=== PATIENT | female | born 1945 ===

== ENCOUNTER → 2019-11-23 11:57 | Outpatient (BNVA) | payer MEDICARE, SELFPAY | PROVIDERS: PCP Internal Medicine; Referring Provider Internal Medicine; Visit Provider Internal Medicine Endocrinology, Diabetes & Metabolism | DX: E11.65 Type 2 diabetes mellitus with hyperglycemia (principal); Z79.84 Long term (current) use of oral hypoglycemic drugs; E03.9 Hypothyroidism, unspecified; E78.5 Hyperlipidemia, unspecified; E66.9 Obesity, unspecified; M85.80 Other specified disorders of bone density and structure, unspecified site; I10 Essential (primary) hypertension; E55.9 Vitamin D deficiency, unspecified; Z79.899 Other long term (current) drug therapy | CPT/HCPCS: 82947; 99214 ==

== ENCOUNTER → 2019-12-12 12:39 | Outpatient (BNVA) | payer MEDICARE, SELFPAY | PROVIDERS: PCP Internal Medicine; Visit Provider Dietitian, Registered | DX: Z76.89 Persons encountering health services in other specified circumstances (principal) ==

== ENCOUNTER 2020-02-29 08:10 | Outpatient (REF) | payer MEDICARE, SELFPAY ==
--- NOTE | 2020-02-29 09:29 | XR_ITS ---
EXAMINATION: XR ANKLE, RIGHT CLINICAL INFORMATION: Pain COMPARISON: None TECHNIQUE: AP, lateral, and mortise views of the right ankle. FINDINGS: There is an overlying cast. There is an oblique fracture of the distal shaft of the fibula. There is minimal 2 mm lateral subluxation of the lateral malleolus with respect to the more proximal shaft. No other fracture is seen. The ankle mortise is normal. XR/XR ankle RT min 3V IMPRESSION: Minimally displaced fracture of the distal shaft of the fibula.
== END 2020-02-29 08:11 | disposition home or self-care (01) ==
LOC: HO.XRAY 08:10
PROVIDERS: PCP Internal Medicine; Visit Provider Physician Assistant
DX: M25.571 Pain in right ankle and joints of right foot (principal); S82.832A Other fracture of upper and lower end of left fibula, initial encounter for closed fracture; W08.XXXA Fall from other furniture, initial encounter; Y93.9 Activity, unspecified; Y92.009 Unspecified place in unspecified non-institutional (private) residence as the place of occurrence of the external cause; Y99.8 Other external cause status; E11.65 Type 2 diabetes mellitus with hyperglycemia; I10 Essential (primary) hypertension; E03.9 Hypothyroidism, unspecified; E55.9 Vitamin D deficiency, unspecified; E66.9 Obesity, unspecified; M85.80 Other specified disorders of bone density and structure, unspecified site; Z88.8 Allergy status to other drugs, medicaments and biological substances; Z87.891 Personal history of nicotine dependence
CPT/HCPCS: 27786; 29405; 73610; 99202

== ENCOUNTER → 2020-03-11 11:22 | Outpatient (BNVA) | payer OTHER, SELFPAY | PROVIDERS: PCP Internal Medicine; Visit Provider Internal Medicine Pulmonary Disease | DX: Z13.89 Encounter for screening for other disorder (principal) | CPT/HCPCS: Q3014 ==

== ENCOUNTER 2020-03-31 08:24 | Outpatient (REF) | payer OTHER, SELFPAY ==
--- NOTE | ~2020-03-31 | XR_ITS ---
EXAMINATION: XR ANKLE, RIGHT CLINICAL INFORMATION: Fracture COMPARISON: None TECHNIQUE: AP, lateral, and mortise views of the right ankle. FINDINGS: There is a fracture of the distal fibular shaft. There is increased periosteal reaction at the fracture and the fracture appears more indistinct suggestive of evidence of healing. No other fracture is seen. The ankle mortise is normal. Soft tissues are normal. XR/XR ankle RT min 3V IMPRESSION: Healing right distal fibular shaft fracture.
== END 2020-03-31 08:25 | disposition home or self-care (01) ==
LOC: HO.XRAY 08:24
PROVIDERS: PCP Internal Medicine; Visit Provider Physician Assistant
DX: S82.891A Other fracture of right lower leg, initial encounter for closed fracture (principal)
CPT/HCPCS: 73610; 99212

== ENCOUNTER 2020-04-03 07:49 | Outpatient (REF) | payer MEDICARE, SELFPAY ==
--- NOTE | ~2020-04-03 | XR_ITS ---
EXAMINATION: XR AP STANDING VIEW OF BOTH KNEES XR LATERAL AND SUNRISE VIEWS OF THE LEFT KNEE CLINICAL INFORMATION: Left knee pain. COMPARISON: 06/29/2018 TECHNIQUE: AP standing view of both knees. Lateral and sunrise views of the left knee. FINDINGS: AP standing views of both knees demonstrate narrowing of the medial joint space compartments bilaterally. No acute fracture or dislocation of the right knee is appreciated on this AP film. Views of the left knee do not demonstrate any evidence of acute fracture or dislocation. There is mild spurring of the patellofemoral joint, most prominent involving the lateral facet. Small spur is seen site of insertion of the quadriceps tendon on the superior aspect of the patella. No knee effusion is appreciated. XR/XR knee standing BI IMPRESSION: Degenerative narrowing of the medial joint space compartments bilaterally. Mild degenerative change of the patellofemoral joint. No acute fracture or effusion.
--- NOTE | ~2020-04-03 | XR_ITS ---
EXAMINATION: XR AP STANDING VIEW OF BOTH KNEES XR LATERAL AND SUNRISE VIEWS OF THE LEFT KNEE CLINICAL INFORMATION: Left knee pain. COMPARISON: 06/29/2018 TECHNIQUE: AP standing view of both knees. Lateral and sunrise views of the left knee. FINDINGS: AP standing views of both knees demonstrate narrowing of the medial joint space compartments bilaterally. No acute fracture or dislocation of the right knee is appreciated on this AP film. Views of the left knee do not demonstrate any evidence of acute fracture or dislocation. There is mild spurring of the patellofemoral joint, most prominent involving the lateral facet. Small spur is seen site of insertion of the quadriceps tendon on the superior aspect of the patella. No knee effusion is appreciated. XR/XR knee LT 2V IMPRESSION: Degenerative narrowing of the medial joint space compartments bilaterally. Mild degenerative change of the patellofemoral joint. No acute fracture or effusion.
== END 2020-04-03 07:50 | disposition home or self-care (01) ==
LOC: HO.HOSX 07:49
PROVIDERS: Visit Provider Orthopaedic Surgery
DX: M17.12 Unilateral primary osteoarthritis, left knee (principal); E11.65 Type 2 diabetes mellitus with hyperglycemia
CPT/HCPCS: 20610; 73560; 73565; 99212; J1100

== ENCOUNTER 2020-04-09 11:00 | Outpatient (RCR) | payer MEDICARE, SELFPAY ==
--- NOTE | 2020-04-07 14:59 | MHC.PT.EP ---
[facility] [place] Office [place] Office [place] Office [address] Ezra Beaz [address] [phone] F: [phone] F: [phone] F: [phone] F: [phone] Physical Therapy Plan of Care Date of Evaluation: 04/07/20 Date of Surgery: n/a Diagnosis: Right fibular shaft fracture 02/22/20 Assessment: This is a 74 y/o female presenting to [facility] w/ a right fibular shaft fracture which occurred on 02/22/20 s/p fall in [place] while she was visiting her mother. She is in a walking boot and WBAT in the boot. Of note, Pt almost cancels today's appointment due to severe pain. This PT educates Pt in regards to non pharmacologic pain management techniques, weight bearing, and mobility. Pt also reports she has restless leg syndrome...this appears to be more bothersome for the Pt along with some anxiety. Pt demonstrates impaired weight bearing, impaired proprioception, gait deviations, pain, tenderness to palpation, impaired strength, soft tissue swelling, impaired muscle length, postural asymmetries, and impaired tolerance to activity. Due to these impairments, Pt w/ difficulty ambulating, performing housework tasks, performing functional squats, ascending/descending stairs, standing/sitting/walking for greater than a very short amount of time, donning/doffing clothing, and performing any lifting. Pt will benefit from skilled PT services 2x/week for 6 weeks in order to reduce impairments and improve limitations. Frequency and Duration: The patient will be seen 2x/week for 6 weeks Short Term Goals: -In 2 weeks, Pt to restore PROM of the right ankle to WNL in all directions. -In 3 weeks, Pt to report <7/10 pain w/ weight bearing w/ walking boot on. -In 3 weeks, Pt to demonstrate reduced swelling by at least 0.5cm R ankle. [facility] Goals: -In 5 weeks, Pt to demonstrate the ability to ambulate w/o walking boot or AD w/ Ortho permission, no assist or LOB. -In 6 weeks, Pt to demonstrate the ability to ascend/descend 12 steps w/ rails as needed, mod I level, <5/10 pain reported. Treatment Plan: Modalities to reduce pain, spasms and effusion. Manual therapy to restore motion and function. Therapeutic exercise to improve strength and flexibility. Neuromuscular re-education for posture and balance. Therapeutic activities to return to functional activities of daily living. Electronically signed by: Perlita Soliman PT, DPT Please sign and return to therapist. Thank you for your referral.
--- NOTE | 2020-04-22 16:37 | MHC.PT.DC ---
[facility] [place] Office [place] Office [place] Office [address] Ezra Baez 140 [facility] [phone] F: [phone] F: [phone] F: [phone] F: [phone] Physical Therapy Discharge Report Diagnosis: Right fibular shaft fracture 02/22/20 Date of Surgery: n/a Date of Evaluation: 04/07/20 Date of Discharge: 04/22/20 Treatments to Date: 2 Cancellations to Date: 3 No Shows to Date: 0 Discharge Status: Patient Elected to Stop Recommend MD Follow-up Visit Non-compliance Discharge Summary: Pt has cancelled each visit since the 2nd treatment session due to pain, despite education regarding physical therapy intervention to address impairments including pain. She reported to our office that she falls often due to restless legs. I advised her to consult her PCP. Please send a new script for PT when the Pt is ready to continue. Electronically signed by: Perlita Soliman PT, DPT Please sign and return to therapist. Thank you for your referral.
== END 2020-04-22 16:39 | disposition other institution (70) ==
LOC: HO.PT 11:00
PROVIDERS: Visit Provider Physician Assistant
DX: S82.891D Other fracture of right lower leg, subsequent encounter for closed fracture with routine healing (principal)
CPT/HCPCS: 97110; 97116; 97140; 97162

== ENCOUNTER 2020-04-18 03:16 | Emergency (ER) | payer MEDICARE, SELFPAY ==
--- NOTE | ~2020-04-18 | XR_ITS ---
EXAMINATION: XR HIP, RIGHT CLINICAL INFORMATION: Fall. COMPARISON: None TECHNIQUE: Two views of the right hip. AP pelvis one view FINDINGS: AP pelvis one view and 2 views right hip reveal no visible fracture. There is normal symmetry of both hip joints and SI joints. No pelvic fractures seen. 2 views of right hip reveals no visible fracture or dislocation. The soft tissues are normal. XR/XR hip RT w PEL1V IMPRESSION: Unremarkable right hip exam. Unremarkable AP pelvis exam.
[2020-04-18 03:39] VITALS: BP 151/75; PULSE 71; TEMP 37.2; O2SAT 97; BMI 29.5
[2020-04-18 04:00] VITALS: RESP 20
--- NOTE | 2020-04-18 05:27 | ED.EXTPRO ---
HPI - Extremity Problem General Chief complaint: Extremity Problem Stated complaint: RIGHT PAIN FOR 5 DAYS Time Seen by Provider: 04/18/20 05:02 Source: patient Mode of arrival: EMS History of Present Illness HPI Narrative: This is a 74-year-old who presents via EMS stating that she attempted to go to the bathroom and then became unsteady on her feet and landed on her bottom. She denies any head strike or loss of consciousness. She states she is concerned because she has continued to have multiple falls that she states is secondary to mid gluteal pain that radiates down into the right lower extremity and ?causes her to fall?. In addition, patient has some concerns regarding the medication affects for her restless leg syndrome. Otherwise, she denies any fever, chills, urinary symptoms. Related Data Home Medications Medication Instructions Recorded Confirmed albuterol sulfate mg INHALATION 11/23/19 03/17/20 atorvastatin 10 mg tablet 10 mg PO DAILY 11/23/19 03/17/20 bisoprolol 2.5 1 tab PO BEDTIME 11/23/19 03/17/20 mg-hydrochlorothiazide 6.25 mg tablet blood sugar diagnostic #10 ea 11/23/19 03/17/20 calcium citrate 500 mg PO DAILY 11/23/19 03/17/20 cetirizine 10 mg tablet 10 mg PO DAILY 11/23/19 03/17/20 fluticasone 100 mcg-salmeterol 50 INHALATION 11/23/19 03/17/20 mcg/dose blistr powdr for inhalation losartan 25 mg tablet 25 mg PO DAILY 11/23/19 03/17/20 montelukast 10 mg tablet 10 mg PO DAILY 11/23/19 03/17/20 omeprazole 20 mg capsule,delayed 20 mg PO DAILY 11/23/19 03/17/20 release ropinirole 0.25 mg tablet 0.25 mg PO BEDTIME 11/23/19 03/17/20 tramadol 50 mg tablet 50 mg PO Q8H PRN 11/23/19 03/17/20 Previous Rx's Medication Instructions Recorded cholecalciferol (vitamin D3) 50 50 mcg PO DAILY 90 Days #90 cap 11/23/19 mcg (2,000 unit) capsule empagliflozin 25 mg tablet 25 mg PO DAILY 90 Days #90 tab 11/23/19 levothyroxine 137 mcg tablet 137 mcg PO DAILY 90 Days #90 tab 11/23/19 metformin 500 mg tablet,extended 500 mg PO DAILY 90 Days #90 tab 11/23/19 release 24 hr sitagliptin 100 mg tablet 100 mg PO DAILY 90 Days #90 tab 11/23/19 Wheelchair #1 ea 02/29/20 walker #1 ea 02/29/20 Scooter #1 ea 03/11/20 gabapentin 400 mg capsule 400 mg PO BID 30 Days #60 cap 03/19/20 Allergies Allergy/AdvReac Type Severity Reaction Status Date / Time aspirin [ASPIRIN] Allergy Severe ANAPHYLAXIS Verified 04/03/20 10:07 Pork/Porcine Containing Allergy Severe ANAPHYLAXIS Verified 04/03/20 10:07 Products [PORK/PORCINE CONTAINING PRODUCTS] Review of Systems Review of Systems: Pertinent positives and negatives as stated in HPI 10 point review of systems is otherwise negative. [facility] Past Medical History Source: nursing notes reviewed Medical History Addiction, opium Arthritis Depression with anxiety Diabetes Diabetes type 2, uncontrolled Dyslipidemia Hypertension Hypothyroidism (acquired) Obesity (BMI 30-39.9) Osteopenia Vitamin D deficiency Surgical History History of radical hysterectomy Hx of arthroscopy of knee Family History Family History Father Diabetes Mother No problems noted. Social History Social History Alcohol intake: never Smoking Status: Former smoker Tobacco Type: Cigarette Advance Directives: No Physical Exam Vital Signs: Vital Signs: Last Vital Signs Temp 98.9 F 04/18/20 03:39 Pulse 82 04/18/20 06:00 Resp 18 04/18/20 06:00 BP 146/76 H 04/18/20 06:00 Pulse Ox 99 04/18/20 06:00 Body Mass Index 29.5 VITAL SIGNS: Reviewed. GENERAL: Well developed, well nourished, in no acute distress. HEAD: Normocephalic/atraumatic, EYES: PERRLA, EOMI NOSE: Nares patent bilateral OROPHARYNX: no oral lesions noted, posterior pharynx clear NECK: Supple, no adenopathy LUNGS: Normal breath sounds. No adventitious sounds or accessory muscle use. SpO2<97> CARDIOVASCULAR: Regular rate and rhythm without noted murmurs ABDOMEN: Soft, non-tender, non-distended with bowel sounds. MUSCULOSKELETAL: No tenderness, deformities, or effusions noted on gross inspection. EXTREMITIES: No cyanosis, clubbing or edema. SKIN: Inspection of the skin reveals no rashes NEUROLOGIC: Alert and oriented x 4. Course Course Course Narrative: This is a 74-year-old female with history and clinical presentation most consistent with sciatica and likely medication affects of bedtime prescription. Patient does have follow-up with her primary care provider on Tuesday. Will do baseline labs and urinalysis to assess for evidence of infection, or anemia which may be contributing factors. Signed out to Dr Salcedo: Follow up labs, UA, Hip XR and dispo accordingly. MDM - Extremity (Nontraumatic) Lab Data Result diagrams: 04/18/20 06:17 04/18/20 06:17 Labs: Lab Results 04/18/20 Range/Units 06:21 Urine Color YELLOW Urine Appearance CLEAR Urine pH 6.0 (5.0-8.0) Ur Specific [place] <= 1.005 (1.005-1.025) Urine Protein NEG (NEG-TRACE) MG/DL Urine Glucose (UA) NEG (NEG) MG/DL Urine Ketones NEG (NEG) MG/DL Urine Blood NEG (NEG) Urine Nitrite NEG (NEG) Ur Leukocyte Esterase NEG (NEG) Discharge Plan Discharge Prescriptions: No Action (DME) Scooter See Rx Instructions .Route .MEDSUPPLY Qty: 1 RF: 0 gabapentin 400 mg capsule 400 mg PO BID 30 Days Qty: 60 RF: 0 (DME) Wheelchair See Rx Instructions .Route .MEDSUPPLY Qty: 1 RF: 0 (DME) walker Misc See Rx Instructions .MEDSUPPLY Qty: 1 RF: 0 montelukast 10 mg tablet 10 mg PO DAILY RF: 0 ropinirole 0.25 mg tablet 0.25 mg PO BEDTIME RF: 0 losartan 25 mg tablet 25 mg PO DAILY RF: 0 tramadol 50 mg tablet 50 mg PO Q8H PRN (Reason: pain) RF: 0 cetirizine 10 mg tablet 10 mg PO DAILY RF: 0 omeprazole 20 mg capsule,delayed release(DR/EC) 20 mg PO DAILY RF: 0 albuterol sulfate 2.5 mg /3 mL (0.083 %) solution for nebulization inhalation RF: 0 atorvastatin 10 mg tablet 10 mg PO DAILY RF: 0 bisoprolol-hydrochlorothiazide 2.5-6.25 mg tablet 1 tab PO BEDTIME RF: 0 calcium citrate 250 mg calcium tablet 500 mg PO DAILY RF: 0 fluticasone propion-salmeterol 100-50 mcg/dose blister with device inhalation RF: 0 (DME) [employer] Ultra Blue Test Strip Strip See Rx Instructions ea Not Applicable BID Qty: 10 RF: 0 Jardiance 25 mg tablet 25 mg PO DAILY 90 Days Qty: 90 RF: 1 metformin 500 mg tablet extended release 24 hr 500 mg PO DAILY 90 Days Qty: 90 RF: 1 sitagliptin 100 mg tablet 100 mg PO DAILY 90 Days Qty: 90 RF: 1 levothyroxine 137 mcg tablet 137 mcg PO DAILY 90 Days Qty: 90 RF: 2 cholecalciferol (vitamin D3) 50 mcg (2,000 unit) capsule 50 mcg PO DAILY 90 Days Qty: 90 RF: 2
[2020-04-18 06:00] VITALS: BP 146/76; PULSE 82; RESP 18; O2SAT 99
[2020-04-18] MEDS: Acetaminophen 325 MG TABLET 975 MG PO (06:05)
[2020-04-18] MEDS: Lidocaine 4 % Patch ADH..PATCH 1 PATCH TRANSDERMA (06:05)
[2020-04-18 06:28] LABS: MANUAL DIFF FLAG NO
[2020-04-18 06:36] LABS: Glucose Urine UA NEG (NEG); Leukocyte Esterase Urine NEG (NEG); Nitrite Urine NEG (NEG); Specific Gravity - Urine <= 1.005 (1.005-1.025); Urine Blood NEG (NEG); Urine Ketones NEG (NEG); Urine Protein NEG (NEG-TRACE)
[2020-04-18 06:43] LABS: Basophils Absolute Auto 0.1 X10*3/uL (0.0-0.2); Basophils Percent Auto 0.7 % (0-2); Eosinophils Absolute Auto 0.2 X10*3/uL (0.0-0.4); Eosinophils Percent Auto 2.6 % (0-4); Hematocrit 39.4 % (37-47); Hemoglobin 13.1 g/dl (12.0-16.0); Imm Gran Abs Auto 0.03 X10*3/uL (0.00-0.03); Imm Gran Pct Auto 0.4 % (0.0-0.4); Lymphocytes Absolute Auto 2.5 X10*3/uL (1.2-4.9); Mean Corpuscular HGB Conc 33.2 g/dl (31.0-35.0); Mean Corpuscular Hemoglobin 29.4 pg (27.0-33.0); Mean Corpuscular Volume 88.5 fL (80-98); Mean Platelet Volume 10.6 fL (9.4-12.3); Monocytes Absolute Auto 0.9 X10*3/uL (0.1-1.2); Monocytes Percent Auto 10.5 % (2-11); Neutrophils Absolute Auto 4.5 X10*3/uL (2.0-8.3); Neutrophils Percent Auto 54.8 % (45-73); Platelet Count 256 X10*3/uL (160-400); Red Blood Count 4.45 X10*6/uL (4.20-5.50); Red Cell Distribution Width 13.9 % (11.0-16.0); White Blood Count 8.2 X10*3/uL (4.8-10.8)
[2020-04-18 06:44] LABS: Appearance Urine CLEAR; Color Urine YELLOW
[2020-04-18 06:57] LABS: Alanine Aminotransferase 16 U/L (0-31); Albumin Level 3.7 g/dL (3.5-5.0); Alkaline Phosphatase 78 U/L (39-117); Anion Gap 13 (12-20); Aspartate Amino Transferase 17 U/L (5-31); Bilirubin Total 0.2 mg/dL (0.0-1.0); Blood Urea Nitrogen 14 mg/dL (9-16); Calcium 8.9 mg/dL (8.4-10.2); Carbon Dioxide 27 mmol/L (22-29); Chloride 103 mmol/L (96-108); Estimated Glomerular Filt Rate > 60; Glucose Random 122 mg/dL (60-115); Potassium 4.5 mmol/L (3.3-5.1); Sodium 138 mmol/L (135-145); Total Protein 6.4 g/dL (6.5-8.0)
== END 2020-04-18 08:21 | disposition home or self-care (01) ==
PROVIDERS: Student in an Organized Health Care Education/Training Program; Emergency Provider Emergency Medicine Emergency Medical Services; PCP Internal Medicine Pulmonary Disease
DX: M54.31 Sciatica, right side (principal); F11.20 Opioid dependence, uncomplicated; E11.9 Type 2 diabetes mellitus without complications; I10 Essential (primary) hypertension; J45.909 Unspecified asthma, uncomplicated; Z79.899 Other long term (current) drug therapy
CPT/HCPCS: 36415; 73502; 80053; 81003; 85025; 99283; 99284

== ENCOUNTER 2020-04-30 08:15 | Outpatient (REF) | payer MEDICARE, SELFPAY | END 2020-04-30 08:16 | disposition home or self-care (01) | LOC: HO.HOSX 08:15 | PROVIDERS: Visit Provider Physician Assistant | DX: Z13.89 Encounter for screening for other disorder (principal) ==

== ENCOUNTER → 2020-05-01 13:42 | Outpatient (REF) | payer MEDICARE, SELFPAY ==
--- NOTE | 2020-05-01 13:47 | CA_ITS ---
Transthoracic Echocardiogram Patient (Last, First, Middle): Teresa Torres A Gender: Female Date of : 1945 Age: 74 Procedure Date: 05/01/2020 Procedure Type: Transthoracic Echocardiogram Location: OP Height: 154.94 cm Weight: 70.76 kg BSA: 1.70 m2 Heart Rate: bpm BP: 132 / 76 mmHg Rn Documentation Specialist: ANUJ Referring MD: Carlos Alberto Lazo MD Symptoms: R06.00 - Dyspnea, unspecified Study Quality: Good ECG Rhythm: Sinus Conclusions: - The left ventricular systolic function is normal. The visually estimated ejection fraction is between 60-65%. - There is mild mitral annular calcification. - No obvious valvular pathology seen on this study. Findings Left Ventricle Normal left ventricular cavity size. There is normal left ventricular wall thickness. The left ventricular systolic function is normal. The visually estimated ejection fraction is between 60-65%. There is no evidence of regional wall motion abnormalities. E/E prime ratio is between 8 and 15 consistent with indeterminate filling pressures. Evidence suggests grade I (mild) diastolic dysfunction. Right Ventricle Normal right ventricular cavity size and systolic function. Atria Both atria are normal in size. Aortic Valve There is a normal trileaflet aortic valve. There is no aortic valve stenosis. There is no aortic valve regurgitation. Mitral Valve There is mild mitral annular calcification. There is trace mitral valve regurgitation. There is no mitral valve stenosis. Pulmonic Valve The pulmonic valve was not well visualized. Tricuspid Valve Normal tricuspid valve structure. There is no tricuspid valve regurgitation. The pulmonary artery systolic pressure is normal. Great Vessels The aortic annulus, sinuses of valsalva, and asc aorta are normal in size. Venous The inferior vena cava is normal in size and collapses greater than 50% with inspiration. Pericardium/Pleural There is no evidence of pericardial effusion. Prior Study Comparison No prior study available for comparison. Recommendations, Care & Conclusions No obvious valvular pathology seen on this study. Measurements 2D Linear Measurements IVSd: 0.71 0.6-0.9/0.6-1.0 cm LVIDd: 3.99 3.9-5.3/4.2-5.9 cm LVIDd Index: 2.35 2.4-3.2/2.2-3.1 cm/m2 LVIDs: 2.56 2.0-3.6 cm LVPWd: 0.80 0.7-1.1 cm Ao Root: 3.20 2.1-3.5 cm LA Diam: 2.90 2.7-3.8/3.0-4.0 cm LAIDs Index: 1.71 1.5-2.3 cm/m2 LV Mass: 107.06 67-162/88-224 g LV Mass Index: 62.98 43-95/49-115 g/m2 LVOT Diam: 1.90 3.0+(-)1.3 cm 2D Systolic Function EF 4C: 54.20 >55% EF 2C: 61.50 >55% EF BiP: 58.00 >55% Mitral Valve MV Pk E: 0.70 MV PK A: 1.11 MV Decel Time: 268.00 E/A: 0.60 E'Lateral: 6.96 E'Medial: 5.77 E/E' Med: 12.20 E/E' Lat: 10.10 PHT: 78.00 MVA PHT: 2.82 Decel [place]: 2.63 Aortic Valve AoV Pk Amari: 1.71 AoV Mn Amari: 1.22 AoV VTI: 0.35 AoV Pk Grad: 12.00 Aov Mn Grad: 7.00 RAYMOND Cont.VTI: 1.58 LVOT LVOT Pk Amari: 0.91 LVOT Mn Amari: 0.58 LVOT VTI: 0.19 LVOT Pk Grad: 3.00 LVOT Mn Grad: 2.00 LVOT Diam: 1.90 LVOT Area: 2.84 Diastolic Function MV Pk E: 0.70 MV Pk A: 1.11 E/A: 0.60 E'Medial: 5.77 E/E' Med: 12.20 E' Laterial: 6.96 E/E' Lat: 10.10 Tricuspid Valve TR Pk Amari: 1.91 TR Pk Grad: 15.00 RA Press: 3.00 RVSP: 18.00 Great Vessels Aorta Ao Root-2D: 3.20 2.0-3.7 cm Ao Asc: 3.00 2.1-3.4 cm Ao Arch: 2.60 Updated in Other Vendor System with Status of Final Laureano Brar MD electronically signed on 05/03/2020 1:12:59 PM with status of Final
== END ==
LOC: HO.CARD 13:42
PROVIDERS: Visit Provider Internal Medicine Pulmonary Disease
DX: R06.00 Dyspnea, unspecified (principal)
CPT/HCPCS: 93306

== ENCOUNTER → 2020-05-07 20:30 | Outpatient (REF) | payer MEDICARE, SELFPAY | LOC: HO.SL 20:30 | PROVIDERS: Visit Provider Internal Medicine | DX: Z13.89 Encounter for screening for other disorder (principal) ==

== ENCOUNTER 2020-05-14 12:36 | Outpatient (REF) | payer MEDICARE, SELFPAY ==
--- NOTE | ~2020-05-14 | XR_ITS ---
EXAMINATION: BILATERAL ANKLE X-RAY CLINICAL INFORMATION: Fracture COMPARISON: Previous right ankle x-rays most recent March 2020 and knee x-ray March 2020 TECHNIQUE: 3 views of each ankle FINDINGS: Right: There is a healing fracture of the distal shaft of the fibula. Fracture line appears more indistinct and there is surrounding bony callus formation. No other fracture is seen. The ankle mortise is normal. There are small calcaneal spurs. Soft tissues are otherwise unremarkable. Left ankle: Bone alignment is normal. No fracture or dislocation is seen. The ankle mortise is normal. There are small calcaneal spurs. Soft tissues are otherwise normal. XR/XR ankle RT min 3V IMPRESSION: Right ankle: Healing fracture of the distal fibular shaft. Left ankle: No fracture seen.
--- NOTE | ~2020-05-14 | XR_ITS ---
EXAMINATION: BILATERAL ANKLE X-RAY CLINICAL INFORMATION: Fracture COMPARISON: Previous right ankle x-rays most recent March 2020 and knee x-ray March 2020 TECHNIQUE: 3 views of each ankle FINDINGS: Right: There is a healing fracture of the distal shaft of the fibula. Fracture line appears more indistinct and there is surrounding bony callus formation. No other fracture is seen. The ankle mortise is normal. There are small calcaneal spurs. Soft tissues are otherwise unremarkable. Left ankle: Bone alignment is normal. No fracture or dislocation is seen. The ankle mortise is normal. There are small calcaneal spurs. Soft tissues are otherwise normal. XR/XR ankle LT min 3V IMPRESSION: Right ankle: Healing fracture of the distal fibular shaft. Left ankle: No fracture seen.
== END 2020-05-14 12:37 | disposition home or self-care (01) ==
LOC: HO.XRAY 12:36
PROVIDERS: PCP Internal Medicine; Visit Provider Physician Assistant
DX: S82.891A Other fracture of right lower leg, initial encounter for closed fracture (principal); S82.832A Other fracture of upper and lower end of left fibula, initial encounter for closed fracture
CPT/HCPCS: 73610; 99212

== ENCOUNTER 2020-05-31 01:03 | Emergency (ER) | payer MEDICARE, SELFPAY ==
--- NOTE | ~2020-05-31 | XR_ITS ---
EXAMINATION: XR ANKLE, RIGHT CLINICAL INFORMATION: Pain. Fall. COMPARISON: 05/14/2020 TECHNIQUE: AP, lateral, and mortise views of the right ankle. FINDINGS: There is continued healing of the distal fibular fracture when compared to prior. No acute fracture or dislocation. Ankle mortise is congruent. Mild anterior soft tissue swelling. XR/XR ankle RT min 3V IMPRESSION: Continued healing of the distal fibular fracture. No acute fracture or malalignment.
[2020-05-31 01:13] VITALS: BP 155/54; PULSE 61; RESP 16; TEMP 36.7; O2SAT 99; BMI 65.0
[2020-05-31 01:21] VITALS: BP 163/80; PULSE 68; O2SAT 98
[2020-05-31 01:36] VITALS: BP 163/51; PULSE 70; RESP 16; TEMP 36.6; O2SAT 100
--- NOTE | 2020-05-31 02:34 | PC.NURSE ---
pt removed her own cervical collar before being seen by
--- NOTE | 2020-05-31 02:48 | ED_ITS ---
HPI - Fall General Chief Complaint: Fall Stated Complaint: fall Time Seen by Provider: 05/31/20 02:48 Source: patient Mode of arrival: EMS History of Present Illness HPI Narrative: Fell wall pacing twisting right ankle and on review of x-rays no evidence for acute fracture and reported progressive healing of prior fibular fracture. Patient states she had walking boot removed approximately 2-3 weeks ago and states that she was inform she no longer needed it. She continues to have issues with restless leg syndrome. Related Data Home Medications Medication Instructions Recorded Confirmed albuterol sulfate mg INHALATION 11/23/19 03/17/20 atorvastatin 10 mg tablet 10 mg PO DAILY 11/23/19 03/17/20 bisoprolol 2.5 1 tab PO BEDTIME 11/23/19 03/17/20 mg-hydrochlorothiazide 6.25 mg tablet blood sugar diagnostic #10 ea 11/23/19 03/17/20 calcium citrate 500 mg PO DAILY 11/23/19 03/17/20 cetirizine 10 mg tablet 10 mg PO DAILY 11/23/19 03/17/20 fluticasone 100 mcg-salmeterol 50 INHALATION 11/23/19 03/17/20 mcg/dose blistr powdr for inhalation montelukast 10 mg tablet 10 mg PO DAILY 11/23/19 03/17/20 omeprazole 20 mg capsule,delayed 20 mg PO DAILY 11/23/19 03/17/20 release ropinirole 0.25 mg tablet 0.25 mg PO BEDTIME 11/23/19 03/17/20 tramadol 50 mg tablet 50 mg PO Q8H PRN 11/23/19 03/17/20 Previous Rx's Medication Instructions Recorded cholecalciferol (vitamin D3) 50 50 mcg PO DAILY 90 Days #90 cap 11/23/19 mcg (2,000 unit) capsule levothyroxine 137 mcg tablet 137 mcg PO DAILY 90 Days #90 tab 11/23/19 metformin 500 mg tablet,extended 500 mg PO DAILY 90 Days #90 tab 11/23/19 release 24 hr sitagliptin 100 mg tablet 100 mg PO DAILY 90 Days #90 tab 11/23/19 Wheelchair #1 ea 02/29/20 walker #1 ea 02/29/20 Scooter #1 ea 03/11/20 gabapentin 400 mg capsule 400 mg PO BID #60 cap 04/22/20 empagliflozin 25 mg tablet 25 mg PO DAILY #90 tab 05/21/20 losartan 25 mg tablet 25 mg PO DAILY 90 Days #90 tab 05/21/20 Allergies Allergy/AdvReac Type Severity Reaction Status Date / Time aspirin [ASPIRIN] Allergy Severe ANAPHYLAXIS Verified 05/31/20 01:22 Pork/Porcine Containing Allergy Severe ANAPHYLAXIS Verified 05/31/20 01:22 Products [PORK/PORCINE CONTAINING PRODUCTS] Review of Systems Review of Systems: Under positives and negatives as stated in HPI 10 point review of systems is otherwise negative. PMFSH Past Medical History Source: nursing notes reviewed Medical History Addiction, opium Arthritis Depression with anxiety Diabetes Diabetes type 2, uncontrolled Dyslipidemia Hypertension Hypothyroidism (acquired) Obesity (BMI 30-39.9) Osteopenia Vitamin D deficiency Surgical History History of radical hysterectomy Hx of arthroscopy of knee Family History Family History Father Diabetes Mother No problems noted. Social History Social History Alcohol intake: never Smoking Status: Never smoker Tobacco Type: Cigarette Use of substances other than those prescribed or required for medical reasons: No Advance Directives: No Advance Directives Information Provided: No Physical Exam Vital Signs: Vital Signs: Last Vital Signs Temp 97.9 F 05/31/20 01:36 Pulse 86 05/31/20 03:47 Resp 16 05/31/20 03:47 BP 138/68 05/31/20 03:47 Pulse Ox 99 05/31/20 03:47 Body Mass Index 65.0 VITAL SIGNS: Reviewed. GENERAL: Well developed, well nourished, in no acute distress. HEAD: Normocephalic/atraumatic EYES: PERRLA, EOMI EARS: Ext canals without abnormality NOSE: Nares patent bilateral OROPHARYNX: no oral lesions noted, posterior pharynx clear NECK: Supple, no adenopathy LUNGS: Normal breath sounds. No adventitious sounds or accessory muscle use. SpO2<99> CARDIOVASCULAR: Regular rate and rhythm without noted murmurs ABDOMEN: Soft, non-tender, non-distended with bowel sounds. RIGHT FOOT: Swelling and bruising noted to dorsum foot, with pain on palpation across same area, capillary refill less than 3 seconds, limited range of motion secondary to discomfort NEUROLOGIC: Alert and oriented x 4. Course Course Course Narrative: 74-year-old female with accidental fall and on review of all investigations patient likely has mild ankle sprain and will be provided with an Angel wrap and instructions for ice/elevation/[id number] pain control. She was discharged in stable condition. Discharge Plan Discharge Clinical Impression: Sprain of ankle Patient Disposition: Home, Self-Care Instructions: Ankle Sprain (ED) Additional Instructions: 1. Tylenol 1000 mg, orally, every 6 hours as needed for pain control. Do not exceed 4000 mg within 24 hours. 2. Keep Angel wrap in place until evaluated by your primary care provider. 3. Please follow-up with your primary care provider for re-evaluation of appropriate control over your restless leg syndrome. 4. Please apply ice for 5-10 minutes, 3 to 4 times a day to unexposed skin and elevate the extremity when possible. Return to the emergency department if you have any acute worsening of your symptoms. Prescriptions: No Action (DME) Scooter See Rx Instructions .Route .MEDSUPPLY Qty: 1 RF: 0 gabapentin 400 mg capsule 400 mg PO BID Qty: 60 RF: 0 empagliflozin [Jardiance] 25 mg tablet 25 mg PO DAILY Qty: 90 RF: 1 losartan 25 mg tablet 25 mg PO DAILY 90 Days Qty: 90 RF: 2 (DME) Wheelchair See Rx Instructions .Route .MEDSUPPLY Qty: 1 RF: 0 (DME) walker Misc See Rx Instructions .MEDSUPPLY Qty: 1 RF: 0 montelukast 10 mg tablet 10 mg PO DAILY RF: 0 ropinirole 0.25 mg tablet 0.25 mg PO BEDTIME RF: 0 tramadol 50 mg tablet 50 mg PO Q8H PRN (Reason: pain) RF: 0 cetirizine 10 mg tablet 10 mg PO DAILY RF: 0 omeprazole 20 mg capsule,delayed release(DR/EC) 20 mg PO DAILY RF: 0 albuterol sulfate 2.5 mg /3 mL (0.083 %) solution for nebulization inhalation RF: 0 atorvastatin 10 mg tablet 10 mg PO DAILY RF: 0 bisoprolol-hydrochlorothiazide 2.5-6.25 mg tablet 1 tab PO BEDTIME RF: 0 calcium citrate 250 mg calcium tablet 500 mg PO DAILY RF: 0 fluticasone propion-salmeterol 100-50 mcg/dose blister with device inhalation RF: 0 (DME) OneTouch Ultra Blue Test Strip Strip See Rx Instructions ea Not Applicable BID Qty: 10 RF: 0 metformin 500 mg tablet extended release 24 hr 500 mg PO DAILY 90 Days Qty: 90 RF: 1 sitagliptin 100 mg tablet 100 mg PO DAILY 90 Days Qty: 90 RF: 1 levothyroxine 137 mcg tablet 137 mcg PO DAILY 90 Days Qty: 90 RF: 2 cholecalciferol (vitamin D3) 50 mcg (2,000 unit) capsule 50 mcg PO DAILY 90 Days Qty: 90 RF: 2 Referrals: [place] [Primary Care Provider] - 2 days (Re-evaluation necessary for patient with significant restless leg syndrome for which she has sustained multiple falls secondary to requiring getting up in the middle the night multiple times to relieve the RLS symptoms.) Interventions: ED Discharge Assessment Last Done: 05/31/20 05:15 Discharge Date/Time: 05/31/20 05:05
[2020-05-31] MEDS: Acetaminophen 325 MG TABLET 650 MG PO (02:52)
[2020-05-31] MEDS: Acetaminophen 325 MG TABLET PO (02:53)
--- NOTE | 2020-05-31 03:06 | PC.NURSE ---
xray technicians at bedside to take xrays of right ankle
[2020-05-31 03:47] VITALS: BP 138/68; PULSE 86; RESP 16; O2SAT 99
== END 2020-05-31 05:05 | disposition home or self-care (01) ==
PROVIDERS: Emergency Provider Student in an Organized Health Care Education/Training Program
DX: S93.401A Sprain of unspecified ligament of right ankle, initial encounter (principal); W18.30XA Fall on same level, unspecified, initial encounter; I10 Essential (primary) hypertension; E11.9 Type 2 diabetes mellitus without complications; E78.5 Hyperlipidemia, unspecified; F11.10 Opioid abuse, uncomplicated; Z91.81 History of falling; F17.210 Nicotine dependence, cigarettes, uncomplicated; Y93.84 Activity, sleeping; Y92.032 Bedroom in apartment as the place of occurrence of the external cause; Y99.9 Unspecified external cause status; Z79.02 Long term (current) use of antithrombotics/antiplatelets; Z79.899 Other long term (current) drug therapy
CPT/HCPCS: 73610; 99283; 99284

== ENCOUNTER → 2020-06-10 10:52 | Outpatient (BNVA) | payer MEDICARE, SELFPAY | PROVIDERS: PCP Internal Medicine; Visit Provider Internal Medicine Pulmonary Disease | DX: J45.40 Moderate persistent asthma, uncomplicated (principal); Z91.09 Other allergy status, other than to drugs and biological substances | CPT/HCPCS: 99212 ==

== ENCOUNTER 2020-06-12 08:16 | Outpatient (REF) | payer MEDICARE, SELFPAY ==
--- NOTE | ~2020-06-12 | XR_ITS ---
EXAMINATION: XR FOOT, RIGHT CLINICAL INFORMATION: Right foot pain. COMPARISON: None TECHNIQUE: AP and lateral views of the right foot. FINDINGS: There is no evidence of acute fracture or dislocation of the right foot. No radiopaque foreign body identified. There is some soft tissue swelling seen about the 1st metacarpophalangeal joint. No soft tissue calcification in this location is seen. There are a few calcific densities seen base of the 1st metatarsal which may be sequela of previous injury. There is a small plantar calcaneal spur. Joints spaces are maintained. The distal right fibular fracture is not well identified on this study. XR/XR foot RT 2V IMPRESSION: No acute fracture or dislocation of the right foot. Soft tissue swelling about the medial and dorsal aspect of the 1st metatarsophalangeal joint. This may be secondary to gout.
== END 2020-06-12 08:17 | disposition home or self-care (01) ==
LOC: HO.HOSX 08:16
PROVIDERS: Visit Provider Physician Assistant
DX: S93.601A Unspecified sprain of right foot, initial encounter (principal); W18.30XA Fall on same level, unspecified, initial encounter; Y93.9 Activity, unspecified; Y92.9 Unspecified place or not applicable; Y99.9 Unspecified external cause status
CPT/HCPCS: 73620; 99212

== ENCOUNTER → 2020-06-19 10:59 | Outpatient (BNVA) | payer MEDICARE, SELFPAY | PROVIDERS: Visit Provider Internal Medicine Endocrinology, Diabetes & Metabolism | DX: E11.65 Type 2 diabetes mellitus with hyperglycemia (principal); E03.9 Hypothyroidism, unspecified; E78.5 Hyperlipidemia, unspecified; M85.80 Other specified disorders of bone density and structure, unspecified site; I10 Essential (primary) hypertension; E55.9 Vitamin D deficiency, unspecified; E66.3 Overweight | CPT/HCPCS: 82947; 99212 ==

== ENCOUNTER 2020-06-23 11:12 | Outpatient (REF) | payer MEDICARE, SELFPAY ==
[2020-06-23 14:34] LABS: Alanine Aminotransferase 16 U/L (0-31); Alkaline Phosphatase 75 U/L (39-117); Anion Gap 14 (12-20); Aspartate Amino Transferase 15 U/L (5-31); Bilirubin Total 0.5 mg/dL (0.0-1.0); Blood Urea Nitrogen 18 mg/dL (9-16); Calcium 9.2 mg/dL (8.4-10.2); Carbon Dioxide 26 mmol/L (22-29); Chloride 106 mmol/L (96-108); Cholesterol 166 mg/dL; Estimated Glomerular Filt Rate > 60; Glucose Fasting 72 mg/dL (60-99); HDL Cholesterol 44 mg/dL; LDL Cholesterol Calculated 80 mg/dl; Potassium 4.2 mmol/L (3.3-5.1); Sodium 142 mmol/L (135-145); Total Protein 6.7 g/dL (6.5-8.0); Triglycerides 213 mg/dL
[2020-06-23 14:46] LABS: Creatinine Urine 62.77 mg/dL; Microalbum/Creatinine Ratio Ur 7.9 ug/mg cr
[2020-06-23 14:56] LABS: Free T4 (Free Thyroxine) 1.36 ng/dL (0.71-1.85); Thyroid Stimulating Hormone 1.62 uIU/mL (0.32-4.0)
[2020-06-23 15:03] LABS: Vitamin B12 403 pg/mL (200-900)
[2020-06-24 12:01] LABS: LDL Cholesterol Direct 97 mg/dL (<100)
== END 2020-06-23 11:13 | disposition home or self-care (01) ==
LOC: HO.10HDL 11:12
PROVIDERS: Visit Provider Internal Medicine Endocrinology, Diabetes & Metabolism
DX: E11.65 Type 2 diabetes mellitus with hyperglycemia (principal); E03.9 Hypothyroidism, unspecified
CPT/HCPCS: 36415; 80053; 80061; 82043; 82607; 83721; 84439; 84443

== ENCOUNTER 2020-07-14 11:00 | Outpatient (RCR) | payer MEDICARE, SELFPAY | END 2020-08-08 15:51 | disposition home or self-care (01) | LOC: HO.PT 11:00 | PROVIDERS: PCP Internal Medicine; Visit Provider Internal Medicine | DX: M54.16 Radiculopathy, lumbar region (principal); M79.7 Fibromyalgia | CPT/HCPCS: 97110; 97112; 97116; 97140; 97163; 97535 ==

== ENCOUNTER 2020-07-31 10:55 | Outpatient (REF) | payer MEDICARE, SELFPAY ==
--- NOTE | ~2020-07-31 | MM_ITS ---
EXAMINATION: BONE DENSITOMETRY CLINICAL INDICATION: Other specified disorders of bone density and structure, unspecified site. COMPARISON: Baseline BD dated 01/12/2018. TECHNIQUE: Using a [employer] DXA System (software version: 13.1) manufactured by [employer], dual-energy x-ray absorptiometry was performed of the lumbar spine and left hip. The images are of good technical quality. Summary results are attached. FINDINGS: AP SPINE L1-L4 (excluding L3): The data of L1-L4 has been changed to exclude the L3 vertebral body, because probable degenerative changes at this level may cause overestimation of lumbar spine density. Current: BMD 1.252 g/cm2, Z-score 2.4, T-score 0.7, normal, 2.0% decrease from baseline (<5% change is not significant). Baseline: BMD 1.277 g/cm2. LEFT FEMUR, NECK: Current: BMD 0.737 g/cm2, Z-score -0.4, T-score -2.2, osteopenia. Baseline: BMD 0.742 g/cm2. LEFT FEMUR, TOTAL: Current: BMD 0.880 g/cm2, Z-score 0.6, T-score -1.0, normal, 1.6% decrease from baseline (<5% change is not significant). Baseline: BMD 0.894 g/cm2. IDENTIFIED RISK FACTORS: History of adult fracture. Recurrent falls. Menopause. Hysterectomy. Bilateral oophorectomy. HISTORY OF FRACTURE: Foot. MEDICATIONS: Calcium supplement and/or multivitamin. Vitamin D. MM/XR DEXA axial skeleton IMPRESSION: 1. DIAGNOSIS: Osteopenia based on the lowest T-score value of -2.2 in the femoral neck applying World Health Organization criteria. 2. 10-YEAR FRACTURE RISK PREDICTION, FRAX: Major osteoporotic fracture (clinical spine, forearm, hip or shoulder) 12.1%. Hip fracture 2.8%. 3. Treatment Recommendations: NOF guidelines recommend consideration for treatment in postmenopausal women and men age 50 and older presenting with the following: -A hip or vertebral (clinical or morphometric) fracture. -T-score less than or equal to -2.5 at the femoral neck or spine after appropriate evaluation to exclude secondary causes. -Low bone mass at the hip or spine and a 10-year fracture probability by FRAX of greater than or equal to 3% for hip fracture or greater than or equal to 20% for major osteoporotic fracture based on the [place] adapted WHO algorithm. 4. Other Recommendations: All treatment decisions require clinical judgment and consideration of individual patient factors, including patient preferences, comorbidities, previous drug use, risk factors not captured in the FRAX model (e.g. frailty, falls, vitamin D deficiency, increased bone turnover, interval significant decline in bone density) and possible under or overestimation of fracture risk by FRAX. Additional medical evaluation for secondary cause of low bone mineral density may be appropriate. FUTURE SCAN RECOMMENDATION: People with diagnosed cases of osteoporosis or at high risk for fracture should have regular bone mineral density tests. For patients eligible for Medicare, routine testing is allowed once every 2 years. The testing frequency can be increased to one year for patients who have rapidly progressing disease, those who are receiving or discontinuing medical therapy to restore bone mass, or have additional risk factors.
== END 2020-07-31 10:56 | disposition home or self-care (01) ==
LOC: HO.MAMMO 10:55
PROVIDERS: PCP Internal Medicine; Visit Provider Internal Medicine Endocrinology, Diabetes & Metabolism
DX: Z13.820 Encounter for screening for osteoporosis (principal); M85.80 Other specified disorders of bone density and structure, unspecified site; Z78.0 Asymptomatic menopausal state; Z98.890 Other specified postprocedural states; Z87.81 Personal history of (healed) traumatic fracture; Z91.81 History of falling; Z79.899 Other long term (current) drug therapy
CPT/HCPCS: 77080

== ENCOUNTER 2020-08-12 12:00 | Outpatient (RCR) | payer MEDICARE, SELFPAY ==
[2020-07-29 10:17] VITALS: BP 110/70
--- NOTE | 2020-07-29 14:00 | MHC.PT.EP ---
[facility] [place] [facility] [place] [facility] [place] Office [address] Ezra Baez [address] [phone] F: [phone] F: [phone] F: [phone] F: [phone] Physical Therapy Plan of Care Date of Evaluation: Date of Surgery: NA Diagnosis: Unspecified fracture of R fibula Assessment: Teresa is a 74 y.o female referred to PT following a R fibula fracture. Upon PT examination she presents with increased swelling, TTP to R CFL and 5th metatarsal, decreased R ankle ROM, B decreased hip strength, B decreased knee strength, and decreased R ankle strength. She would benefit from skilled PT for the aforementioned impairments to improve her tolerance for ADLs such as cooking, cleaning, and lifting heavy things. She is motivated for PT. Frequency and Duration: The patient will be seen 2x week for 6 weeks Short Term Goals: 1. In 2 weeks patient will show decreased swelling and pain to improve her ability for showering and self care. 2. In 3 weeks patient will ambulate 100' with single point cane. Group Home Goals: 1. In 4 weeks Ankle ROM will be WNL to improve ability for stair negotiation. 2. In 5 weeks patient will demonstrate improved LE strength by 1 MMT grade to improve her tolerance for walking 300 feet. 3. In 6 weeks patient will be independent with HEP for symptom management at home following d/c. Treatment Plan: Modalities to reduce pain, spasms and effusion. Manual therapy to restore motion and function. Therapeutic exercise to improve strength and flexibility. Neuromuscular re-education for posture and balance. Therapeutic activities to return to functional activities of daily living. Electronically signed by: Patricia Limon PT DPT Please sign and return to therapist. Thank you for your referral.
--- NOTE | 2020-08-29 15:10 | MHC.PT.DC ---
[facility] [place] [facility] [place] Office [place] Office [address] Ezra Baez [address] [phone] F: [phone] F: [phone] F: [phone] F: [phone] Physical Therapy Discharge Report Diagnosis: Unspecified fracture of R fibula Date of Surgery: NA Date of Evaluation: 07/29/20 Date of Discharge: 08/29/20 Treatments to Date: 5 Cancellations to Date: 0 No Shows to Date: 0 Discharge Status: Achieved Goals Improved Function Independent with HEP Discharge Summary: Teresa completed 5 PT visits and noted significant improvements in her pain level. She wanted to return to therapy for her back. She has therefore been discharged form therapy for her ankle Electronically signed by: Patricia Limon, PT DPT Please sign and return to therapist. Thank you for your referral.
== END 2020-08-29 15:12 | disposition home or self-care (01) ==
LOC: HO.PT 12:00
PROVIDERS: PCP Internal Medicine; Visit Provider Physician Assistant
DX: S82.401D Unspecified fracture of shaft of right fibula, subsequent encounter for closed fracture with routine healing (principal)
CPT/HCPCS: 97110; 97112; 97116; 97161

== ENCOUNTER → 2020-08-26 09:56 | Outpatient (REF) | payer MEDICARE, SELFPAY ==
--- NOTE | ~2020-08-26 | NM_ITS ---
EXAMINATION: THREE PHASE BONE SCAN CLINICAL INFORMATION: Closed fracture of right foot. Patient states multiple falls including January, last fall Jun, 2020 with right foot fracture. Patient states also a history of fibromyalgia.. COMPARISON: No previous bone scan is available for comparison. Radiographs of the right foot dated 06/12/2020 are available for comparison. Radiographs of the right ankle dated 05/31/2020 are also available for comparison.. TECHNIQUE: Initial rapid sequence images were obtained over the the during the bolus injection of 25 mCi Tc-99m MDP. Static images of the whole-body with multiple views of the distal lower extremities, chest, and pelvis were then obtained 2.75 hours post injection. FINDINGS: Initial rapid sequence images show a discrete focus of increased flow in the mid right foot. This is superimposed on a mild diffuse increase in flow to the visualized distal right lower extremity. No focal flow abnormalities are present in the left foot or ankle. Blood pool images obtained immediately following the flow study show a mild diffuse increase in blood pool activity in the visualized distal right lower extremity with a superimposed much more prominent moderate to markedly increased activity in a focus in the mid right foot slightly more prominent laterally. There is also mildly increased blood pool activity in the lateral malleolus of the right ankle. No blood pool abnormalities are present in the left foot or ankle. The delayed static images show: In the head, no significant abnormalities are present. In the thoracic cage and upper extremities, there is mildly increased activity in the right acromioclavicular and sternoclavicular joints and also minimally in the lateral subacromial regions of both humeral heads, all likely arthritic. In the spine, there is mildly increased activity in a horizontally linear foci at L5 3-L4 and at L4-L5. At L4-L5 activity appears to be in the posterior elements bilaterally but at L3 and appears to be anterior. There is mildly increased activity in the right costovertebral junctions of T7 and T9. In the pelvis, no significant abnormalities are present. In the lower extremities, there is a focus of markedly increased activity in the mid right foot, involving the carpal metacarpal joints diffusely but most intensely in the regions of the fourth and fifth digits, and this activity is probably in the base of the fourth and fifth metatarsal bones on the right. There is additional abnormality is mild to moderate intensity in the lateral malleolus of the right ankle and this is superimposed on a mild diffuse increase in activity in the more medial right ankle and slightly less prominent mild abnormality in the proximal right foot. No abnormalities in the left foot or ankle are present. In the knees there is mildly increased activity in the medial and patellar compartments bilaterally. The urinary bladder and faint visualization of both kidneys are noted. Radiographs of the right ankle dated 05/31/2020 shows a comminuted fracture in the distal aspect of the right fibular corresponds to the bone scan abnormalities described above in the lateral malleolus of the right ankle. NM/NM bone 3 phase IMPRESSION: 1. Prominent abnormalities likely in the bases of the fourth and fifth right metatarsal bones are strongly suspicious for recent stress or traumatic fractures. 2. Abnormality laterally in the right ankle is consistent with continued bone remodeling at the fracture previously visualized on radiographs dated 05/31/2020. 3. Chronic compression fractures or degenerative disc disease in the mid lumbar spine and facet arthropathy and additional degenerative changes at L4-L5 are noted. There are some additional mild abnormalities in the right costovertebral junctions of T7 and in T9 which are likely degenerative also. 4. A few additional mild nonspecific abnormalities are noted as described above and these are all likely arthritic or traumatic in etiology. None of these abnormalities is strongly suspicious for metastatic disease.
== END ==
LOC: HO.NUCMED 09:56
PROVIDERS: Visit Provider Podiatrist
DX: S92.901A Unspecified fracture of right foot, initial encounter for closed fracture (principal)
CPT/HCPCS: 78315; A9503

== ENCOUNTER 2020-09-03 11:13 | Outpatient (REF) | payer MEDICARE, SELFPAY ==
--- NOTE | ~2020-09-03 | XR_ITS ---
EXAMINATION: XR FOOT, RIGHT CLINICAL INFORMATION: Fifth metatarsal fracture COMPARISON: 06/12/2020 and studies dating back to 02/29/2020 TECHNIQUE: AP, lateral, and oblique views of the right foot. FINDINGS: There is no evidence of acute fracture or dislocation of the right foot. Plantar calcaneal spur is noted. No significant soft tissue swelling is seen. Joint spaces are maintained. Incidentally noted is what appears to be a healed distal fibular fracture. XR/XR foot RT min 3V IMPRESSION: No acute fracture or dislocation of the right foot. Calcaneal plantar spur.
--- NOTE | ~2020-09-03 | XR_ITS ---
EXAMINATION: XR ANKLE, RIGHT CLINICAL INFORMATION: Right ankle pain. COMPARISON: 05/31/2020 TECHNIQUE: AP, lateral, and mortise views of the right ankle. FINDINGS: There has been continued healing of the distal right fibular fracture with the fracture line no longer being evident. No acute fracture identified. No dislocation seen. Ankle mortise appears intact. Plantar calcaneal spur present. XR/XR ankle RT min 3V IMPRESSION: Appearance of bony union of distal right fibular fracture. Calcaneal spur.
== END 2020-09-03 11:14 | disposition home or self-care (01) ==
LOC: HO.HOSX 11:13
PROVIDERS: Visit Provider Physician Assistant
DX: S92.351A Displaced fracture of fifth metatarsal bone, right foot, initial encounter for closed fracture (principal); M77.50 Other enthesopathy of unspecified foot and ankle
CPT/HCPCS: 73610; 73630; 99212

== ENCOUNTER → 2020-09-30 19:43 | Outpatient (REF) | payer MEDICARE, SELFPAY | LOC: HO.SL 19:43 | PROVIDERS: Visit Provider Internal Medicine | DX: G47.10 Hypersomnia, unspecified (principal) | CPT/HCPCS: 95810 ==

== ENCOUNTER 2020-10-23 14:00 | Outpatient (RCR) | payer MEDICARE, SELFPAY | END 2020-10-23 15:36 | disposition home or self-care (01) | LOC: HO.PT 14:00 | PROVIDERS: Visit Provider Orthopaedic Surgery | DX: M54.40 Lumbago with sciatica, unspecified side (principal) | CPT/HCPCS: 97012; 97110; 97112; 97162; 97530 ==

== ENCOUNTER → 2020-11-12 13:56 | Outpatient (BNVA) | payer MEDICARE, SELFPAY | PROVIDERS: PCP Internal Medicine; Visit Provider Internal Medicine Pulmonary Disease | DX: J45.40 Moderate persistent asthma, uncomplicated (principal); Z91.09 Other allergy status, other than to drugs and biological substances | CPT/HCPCS: 99212 ==

== ENCOUNTER → 2021-03-18 10:49 | Outpatient (BNVA) | payer MEDICARE, SELFPAY | PROVIDERS: PCP Internal Medicine; Visit Provider Nurse Practitioner Gerontology | DX: E03.9 Hypothyroidism, unspecified (principal); E11.9 Type 2 diabetes mellitus without complications; E78.5 Hyperlipidemia, unspecified; E55.9 Vitamin D deficiency, unspecified; E66.3 Overweight; I10 Essential (primary) hypertension; M85.80 Other specified disorders of bone density and structure, unspecified site; Z68.27 Body mass index [BMI] 27.0-27.9, adult | CPT/HCPCS: 82947; 99212 ==

== ENCOUNTER 2021-04-27 07:32 | Day surgery (SDC) | payer MEDICARE, SELFPAY ==
[2021-04-17 11:23] VITALS: BMI 27.9
--- NOTE | 2021-04-24 09:00 | P.CONAN_ITS ---
Documented by User: Antonina Abel NP 04/24/21 09:01 HPI - Anesthesia Eval Consult details Narrative: 75yo F for Left Cataract Extraction IOL Insertion PCP cleared No previous cataract on file [facility] Active Problems Active Problems: All Active Problems (Updated 04/17/21 @ 11:16 by Terese Llamas RN) Hypertension (Acute) Fracture of distal end of left fibula (Acute) Moderate persistent asthma (Acute) Environmental allergies (Acute) Dyspnea (Acute) Closed right ankle fracture (Acute) Closed fracture of fibula with routine healing (Acute) Sprain of foot, right (Acute) Foot tendinitis (Acute) DM2 (diabetes mellitus, type 2) (Acute) Essential hypertension (Acute) Autoimmune thyroiditis (Acute) Overweight (BMI 25.0-29.9) (Acute) Arthritis (Acute) Depression with anxiety (Acute) Diabetes (Acute) Addiction, opium (Acute) Vitamin D deficiency (Acute) Osteopenia (Acute) Obesity (BMI 30-39.9) (Acute) Dyslipidemia (Acute) Hypothyroidism (acquired) (Acute) Diabetes type 2, uncontrolled (Acute) Past Medical History Medical History Addiction, opium Arthritis Autoimmune thyroiditis Depression with anxiety Diabetes type 2, uncontrolled Dyslipidemia Essential hypertension Hypothyroidism (acquired) Obesity (BMI 30-39.9) Osteopenia Overweight (BMI 25.0-29.9) Vitamin D deficiency Family History Family History Father Diabetes Mother No problems noted. Son Substance use disorder Surgical History Surgical History History of radical hysterectomy Hx of arthroscopy of knee Social History Social History Housing: Condominium Alcohol intake: never Patient Tobacco Use Status: Former Tobacco user Tobacco use type: Cigarette e-Cigarette/Vaping Use: Never Used Second Hand Smoke Exposure: No Advance Directives: No Advance Directives Information Provided: Yes Advance Directives on File: No service: No Current occupational status: retired Meds Allergies Allergy/AdvReac Type Severity Reaction Status Date / Time aspirin [ASPIRIN] Allergy Severe ANAPHYLAXIS Verified 04/27/21 08:13 Pork/Porcine Containing Allergy Severe ANAPHYLAXIS Verified 04/27/21 08:13 Products [PORK/PORCINE CONTAINING PRODUCTS] Seasonal Allergies Allergy Intermediate asthma, Verified 04/27/21 08:13 itch, rash Home Medications Medication Instructions Recorded Confirmed Last Taken Type albuterol sulfate 2.5 mg CONTINUOUS NEBULIZATION Q4H 11/23/19 04/17/21 Unknown History PRN blood sugar diagnostic #10 ea 11/23/19 09/02/20 Unknown History cetirizine 10 mg tablet 10 mg PO DAILY 11/23/19 04/17/21 Unknown History fluticasone 100 mcg-salmeterol 50 1 inh INHALATION DAILY 11/23/19 04/17/21 Unknown History mcg/dose blistr powdr for inhalation montelukast 10 mg tablet 10 mg PO DAILY 11/23/19 04/17/21 Unknown History omeprazole 20 mg capsule,delayed 20 mg PO DAILY 11/23/19 04/17/21 Unknown History release rosuvastatin 5 mg tablet 5 mg PO DAILY 03/18/21 04/17/21 Unknown History Exam Exam Date and Time: April 24, 2021 0900 Height,Weight and Vital Signs: Height 5 ft 1 in Weight 67.132 kg Narrative Narrative: ECHO 04/2020 Conclusions: - The left ventricular systolic function is normal.? The visually estimated ejection fraction is between 60-65%. ? - There is mild mitral annular calcification.? - No obvious valvular pathology seen on this study.?? Assessment and Plan Assessment Anesthesia Assessment: Chart Reviewed Documented by User: Joe Moya MD 04/27/21 08:31 [facility] Past Medical History Medical History Addiction, opium Arthritis Autoimmune thyroiditis Depression with anxiety Diabetes type 2, uncontrolled Dyslipidemia Essential hypertension Hypothyroidism (acquired) Obesity (BMI 30-39.9) Osteopenia Overweight (BMI 25.0-29.9) Vitamin D deficiency Family History Family History Father Diabetes Mother No problems noted. Son Substance use disorder Family history of problems with anesthesia: No Surgical History Surgical History History of radical hysterectomy Hx of arthroscopy of knee History of Problems with Anesthesia: No Social History [facility] Alcohol intake: never Patient Tobacco Use Status: Former Tobacco user Tobacco use type: Cigarette e-Cigarette/Vaping Use: Never Used Second Hand Smoke Exposure: No Advance Directives: No Advance Directives Information Provided: Yes Advance Directives on File: No service: No Current occupational status: retired [employer] Allergies Allergy/AdvReac Type Severity Reaction Status Date / Time aspirin [ASPIRIN] Allergy Severe ANAPHYLAXIS Verified 04/27/21 08:13 Pork/Porcine Containing Allergy Severe ANAPHYLAXIS Verified 04/27/21 08:13 Products [PORK/PORCINE CONTAINING PRODUCTS] Seasonal Allergies Allergy Intermediate asthma, Verified 04/27/21 08:13 itch, rash Home Medications Medication Instructions Recorded Confirmed Last Taken Type albuterol sulfate 2.5 mg CONTINUOUS NEBULIZATION Q4H 11/23/19 04/17/21 Unknown History PRN blood sugar diagnostic #10 ea 11/23/19 09/02/20 Unknown History cetirizine 10 mg tablet 10 mg PO DAILY 11/23/19 04/17/21 Unknown History fluticasone 100 mcg-salmeterol 50 1 inh INHALATION DAILY 11/23/19 04/17/21 Unknown History mcg/dose blistr powdr for inhalation montelukast 10 mg tablet 10 mg PO DAILY 11/23/19 04/17/21 Unknown History omeprazole 20 mg capsule,delayed 20 mg PO DAILY 11/23/19 04/17/21 Unknown History release rosuvastatin 5 mg tablet 5 mg PO DAILY 03/18/21 04/17/21 Unknown History Exam Airway Mallampati Class: II TM Dist: >3cm Loose/Missing/Broken Teeth: No Heart: rrr+s1s2 Lungs: cta b/l Assessment and Plan Assessment Anesthesia Assessment: Anesthesia Plan Discussed Final Anesthetic Review Family History of Problems with Anesthesia: No History of Problems with Anesthesia: No NPO: Yes ASA Class: III Final Preanesthetic Review: No Changes in Pt Med Stat, Meds/Allgs Chart Reviewed, Consent Obtained/Reviewed and Anes Risks/Benef Reviewed Patient Risk: Intermediate Procedure Risk: Low Assessment/Block/Sedation in SS: Assess/Block/Sedation-SS Anesthetic Plan Anesthetic Plan: MAC: and Agree w/ Assess. and Plan Disposition: Standard PACU
--- NOTE | 2021-04-24 13:20 | MHC.SHP ---
Pre-Procedural Eval Section A Date of Service: 04/24/21 The patient is an INPATIENT: No Changes since office visit: No Cold of Flu in the past 2 weeks, No New Medical Problems, No Changes in Medication and No Patient answered all questions The History & Physical has been completed within 30 days and I have reviewed it.: Yes Section B Chief Complaint: Cataract Left Eye Allergies: Allergies Allergy/AdvReac Type Severity Reaction Status Date / Time aspirin [ASPIRIN] Allergy Severe ANAPHYLAXIS Verified 03/18/21 11:21 Pork/Porcine Containing Allergy Severe ANAPHYLAXIS Verified 03/18/21 11:21 Products [PORK/PORCINE CONTAINING PRODUCTS] Seasonal Allergies Allergy Intermediate asthma, Verified 03/18/21 11:21 itch, rash Plan Diagnosis/Plan: Unchanged I have reviewed the history and physical and performed a pertinent physical examination on my patient. No changes have occurred unless specified.
[2021-04-27 08:16] VITALS: BP 142/68; PULSE 87; RESP 16; TEMP 36.9; O2SAT 97
[2021-04-27] MEDS: Tetracaine HCl/PF 0.5% Oph Sol 4 ML DROPS 1 DROP EYE-LEFT (08:19)
[2021-04-27 08:22] LABS: Glucose, Whole Blood 106 mg/dL (60-115)
[2021-04-27] MEDS: Tropicamide 1 % Ophth Sol 3 ML BTL 1 DROP EYE-LEFT ×3 (08:22→08:36)
[2021-04-27] MEDS: Phenylephrine HCL 2.5% Oph SoL 2 ML BOTTLE 1 DROP EYE-LEFT ×3 (08:29→08:38)
[2021-04-27] MEDS: Lactated Ringers 500 ML 50 ML IV (08:31)
--- NOTE | 2021-04-27 09:09 | HO.PNOPHT ---
Ophthalmology Procedure Procedure Date of Service: 04/27/21 Ophthalmology Viscoelastic: Healsherry Duet Dual Pack Pro Ophthalmology Lenses: TECNAHUM [id number] (23) Procedure Notes: PREOPERATIVE DIAGNOSIS: Decreased visual acuity left eye secondary to cataract POSTOPERATIVE DIAGNOSIS: Same PROCEDURE: Left cataract extraction with intraocular lens insertion SURGEON: Segundo Negrete M.D. ANESTHESIA: Topical/MAC ESTIMATED BLOOD LOSS: None COMPLICATIONS: None After obtaining informed consent, the patient was brought to the operation room suite and placed in the supine position. After adequate sedation per anesthesia, topical drops of Tetracaine were given to the left eye. The eye was then prepped and draped in the usual sterile fashion. The operating room microscope was then positioned over the operative eye and a lid speculum placed. A paracentesis was created. Viscoelastic was then instilled into the anterior chamber. A three plane incision was then created temporally, utilizing a 2.85 mm keratome. Capsulotomy forceps were then utilized to create a circular tear capsulotomy. Hydrodissection and hydrodelineation were carried out until adequate mobilization of the nucleus occurred. Phacoemulsification was then utilized to remove the dense central nucleus followed by removal of the cortical material utilizing the automated aspiration irrigation unit. Viscoat elastic was instilled into the posterior capsular bag followed by placement of a posterior chamber intraocular lens without difficulty. The residual Viscoat elastic was then removed utilizing the automated IA machine. The wound was check and found to be watertight. The patient tolerated the procedure well and the lid speculum was removed. Intracameral injection of Vigamox 0.1 mL followed by a subtenon injection of Kenalog-40 0.2 mL were administered. The patient will be seen in the a.m.
[2021-04-27 09:31] VITALS: BP 146/55; PULSE 66; RESP 16; TEMP 36.6; O2SAT 97
== END 2021-04-27 09:51 | disposition home or self-care (01) ==
PROVIDERS: PCP Internal Medicine; Visit Provider Ophthalmology
PROC: (CPT 66985; principal; 2021-04-27 09:10)
DX: H25.12 Age-related nuclear cataract, left eye (principal); H52.4 Presbyopia; H35.00 Unspecified background retinopathy; I10 Essential (primary) hypertension; E11.9 Type 2 diabetes mellitus without complications; E03.9 Hypothyroidism, unspecified; J45.909 Unspecified asthma, uncomplicated; M79.7 Fibromyalgia; Z79.51 Long term (current) use of inhaled steroids; Z79.84 Long term (current) use of oral hypoglycemic drugs; Z87.891 Personal history of nicotine dependence
CPT/HCPCS: 66984; 82947; J2250; J3010; J3300; V2632

== ENCOUNTER 2021-05-06 13:11 | Outpatient (REF) | payer OTHER, SELFPAY ==
[2021-05-06 14:00] LABS: MANUAL DIFF FLAG NO
[2021-05-06 14:12] LABS: Basophils Absolute Auto 0.1 X10*3/uL (0.0-0.2); Basophils Percent Auto 0.8 % (0-2); Eosinophils Absolute Auto 0.3 X10*3/uL (0.0-0.4); Eosinophils Percent Auto 3.5 % (0-4); Hematocrit 38.1 % (37.0-47.0); Hemoglobin 12.7 g/dl (12.0-16.0); Imm Gran Abs Auto 0.03 X10*3/uL (0.00-0.03); Imm Gran Pct Auto 0.3 % (0.0-0.4); Lymphocytes Absolute Auto 3.5 X10*3/uL (1.2-4.9); Lymphocytes Percent Auto 40.1 % (20-40); Mean Corpuscular HGB Conc 33.3 g/dl (31.0-35.0); Mean Corpuscular Hemoglobin 29.2 pg (27.0-33.0); Mean Corpuscular Volume 87.6 fL (80.0-98.0); Monocytes Absolute Auto 0.8 X10*3/uL (0.1-1.2); Monocytes Percent Auto 9.8 % (2-11); Neutrophils Absolute Auto 3.9 x10*3/uL (2.0-8.3); Neutrophils Percent Auto 45.5 % (45-73); Platelet Count 250 X10*3/uL (160-400); Red Blood Count 4.35 X10*6/uL (4.20-5.50); Red Cell Distribution Width 12.8 % (11.0-16.0); White Blood Count 8.6 X10*3/uL (4.8-10.8)
== END 2021-05-06 13:12 | disposition home or self-care (01) ==
LOC: HO.LAB 13:11
PROVIDERS: PCP Internal Medicine; Visit Provider Internal Medicine Pulmonary Disease
DX: J45.40 Moderate persistent asthma, uncomplicated (principal); Z91.09 Other allergy status, other than to drugs and biological substances
CPT/HCPCS: 36415; 82785; 85025; 86003; 99212

== ENCOUNTER 2021-05-11 07:06 | Day surgery (SDC) | payer OTHER, SELFPAY ==
[2021-05-07 13:06] VITALS: BMI 27.9
--- NOTE | 2021-05-07 14:35 | MHC.SHP ---
Pre-Procedural Eval Section A Date of Service: 05/07/21 The patient is an INPATIENT: No Changes since office visit: No Cold of Flu in the past 2 weeks, No New Medical Problems, No Changes in Medication and No Patient answered all questions The History & Physical has been completed within 30 days and I have reviewed it.: Yes Section B Chief Complaint: Age-related nuclear cataract, right eye Allergies: Allergies Allergy/AdvReac Type Severity Reaction Status Date / Time aspirin [ASPIRIN] Allergy Severe ANAPHYLAXIS Verified 05/06/21 13:12 Pork/Porcine Containing Allergy Severe ANAPHYLAXIS Verified 05/06/21 13:12 Products [PORK/PORCINE CONTAINING PRODUCTS] Seasonal Allergies Allergy Intermediate asthma, Verified 05/06/21 13:12 itch, rash Plan Diagnosis/Plan: Unchanged I have reviewed the history and physical and performed a pertinent physical examination on my patient. No changes have occurred unless specified.
--- NOTE | 2021-05-08 10:32 | HO.ANESPROP2 ---
Documented by User: Antonina Abel NP 05/08/21 10:33 HPI - Anesthesia Eval Consult details Narrative: 75yo F for Right Cataract Extraction IOL Insertion PCP cleared Left eye 04/27/21 with MAC: Fent 50, Midaz 1 PMFSH Active Problems Active Problems: All Active Problems (Updated 04/17/21 @ 11:16 by Terese Llamas RN) Hypertension (Acute) Fracture of distal end of left fibula (Acute) Moderate persistent asthma (Acute) Environmental allergies (Acute) Dyspnea (Acute) Diabetes (Acute) Closed right ankle fracture (Acute) Closed fracture of fibula with routine healing (Acute) Sprain of foot, right (Acute) Foot tendinitis (Acute) DM2 (diabetes mellitus, type 2) (Acute) Essential hypertension (Acute) Autoimmune thyroiditis (Acute) Overweight (BMI 25.0-29.9) (Acute) Arthritis (Acute) Depression with anxiety (Acute) Addiction, opium (Acute) Vitamin D deficiency (Acute) Osteopenia (Acute) Obesity (BMI 30-39.9) (Acute) Dyslipidemia (Acute) Hypothyroidism (acquired) (Acute) Diabetes type 2, uncontrolled (Acute) Past Medical History Medical History Addiction, opium Arthritis Autoimmune thyroiditis Depression with anxiety Diabetes type 2, uncontrolled Dyslipidemia Essential hypertension Hypothyroidism (acquired) Obesity (BMI 30-39.9) Osteopenia Overweight (BMI 25.0-29.9) Vitamin D deficiency Family History Family History Father Diabetes Mother No problems noted. Son Substance use disorder Family history of problems with anesthesia: No Surgical History Surgical History (Updated 05/07/21 @ 13:05 by Terese Llamas RN) History of radical hysterectomy Hx of arthroscopy of knee Hx of cataract surgery History of Problems with Anesthesia: No Social History Social History Housing: Condominium Alcohol intake: never Patient Tobacco Use Status: Former Tobacco user Tobacco use type: Cigarette e-Cigarette/Vaping Use: Never Used Second Hand Smoke Exposure: No Advance Directives: No Advance Directives Information Provided: Yes service: No Current occupational status: retired Meds Allergies Allergy/AdvReac Type Severity Reaction Status Date / Time aspirin [ASPIRIN] Allergy Severe ANAPHYLAXIS Verified 05/06/21 13:12 Pork/Porcine Containing Allergy Severe ANAPHYLAXIS Verified 05/06/21 13:12 Products [PORK/PORCINE CONTAINING PRODUCTS] Seasonal Allergies Allergy Intermediate asthma, Verified 05/06/21 13:12 itch, rash Home Medications Medication Instructions Recorded Confirmed Last Taken Type blood sugar diagnostic #10 ea 11/23/19 09/02/20 Unknown History cetirizine 10 mg tablet 10 mg PO DAILY 11/23/19 05/07/21 Unknown History fluticasone 100 mcg-salmeterol 50 1 inh INHALATION DAILY 11/23/19 05/07/21 Unknown History mcg/dose blistr powdr for inhalation montelukast 10 mg tablet 10 mg PO DAILY 11/23/19 05/07/21 Unknown History omeprazole 20 mg capsule,delayed 20 mg PO DAILY 11/23/19 05/07/21 Unknown History release rosuvastatin 5 mg tablet 5 mg PO DAILY 03/18/21 05/07/21 Unknown History Exam Exam Date and Time: May 08, 2021 1032 Height,Weight and Vital Signs: Height 5 ft 1 in Weight 67.132 kg Assessment and Plan Assessment Anesthesia Assessment: Chart Reviewed Final Anesthetic Review Family History of Problems with Anesthesia: No History of Problems with Anesthesia: No Documented by User: Joe oMya MD 05/11/21 07:58 REPLACED BY [facility] Past Medical History Medical History Addiction, opium Arthritis Autoimmune thyroiditis Depression with anxiety Diabetes type 2, uncontrolled Dyslipidemia Essential hypertension Hypothyroidism (acquired) Obesity (BMI 30-39.9) Osteopenia Overweight (BMI 25.0-29.9) Vitamin D deficiency Family History Family History Father Diabetes Mother No problems noted. Son Substance use disorder Surgical History Surgical History (Updated 05/07/21 @ 13:05 by Terese Llamas RN) History of radical hysterectomy Hx of arthroscopy of knee Hx of cataract surgery Social History Social History Housing: Condominium Alcohol intake: never Patient Tobacco Use Status: Former Tobacco user Tobacco use type: Cigarette e-Cigarette/Vaping Use: Never Used Second Hand Smoke Exposure: No Advance Directives: No Advance Directives Information Provided: Yes service: No Current occupational status: retired Meds Allergies Allergy/AdvReac Type Severity Reaction Status Date / Time aspirin [ASPIRIN] Allergy Severe ANAPHYLAXIS Verified 05/06/21 13:12 Pork/Porcine Containing Allergy Severe ANAPHYLAXIS Verified 05/06/21 13:12 Products [PORK/PORCINE CONTAINING PRODUCTS] Seasonal Allergies Allergy Intermediate asthma, Verified 05/06/21 13:12 itch, rash Home Medications Medication Instructions Recorded Confirmed Last Taken Type blood sugar diagnostic #10 ea 11/23/19 09/02/20 Unknown History cetirizine 10 mg tablet 10 mg PO DAILY 11/23/19 05/07/21 Unknown History fluticasone 100 mcg-salmeterol 50 1 inh INHALATION DAILY 11/23/19 05/07/21 Unknown History mcg/dose blistr powdr for inhalation montelukast 10 mg tablet 10 mg PO DAILY 11/23/19 05/07/21 Unknown History omeprazole 20 mg capsule,delayed 20 mg PO DAILY 11/23/19 05/07/21 Unknown History release rosuvastatin 5 mg tablet 5 mg PO DAILY 03/18/21 05/07/21 Unknown History Exam Airway Mallampati Class: II TM Dist: >3cm Neck ROM: Full Loose/Missing/Broken Teeth: No Heart: rrr+s1s2 Lungs: cta b/l Assessment and Plan Assessment Anesthesia Assessment: Anesthesia Plan Discussed Final Anesthetic Review NPO: Yes ASA Class: III Final Preanesthetic Review: No Changes in Pt Med Stat, Meds/Allgs Chart Reviewed, Consent Obtained/Reviewed and Anes Risks/Benef Reviewed Patient Risk: Intermediate Procedure Risk: Low Assessment/Block/Sedation in SS: Assess/Block/Sedation-SS Anesthetic Plan Anesthetic Plan: MAC: and Agree w/ Assess. and Plan Disposition: Standard PACU
[2021-05-11 07:58] VITALS: BP 148/58; PULSE 63; RESP 16; TEMP 35.9; O2SAT 97
[2021-05-11] MEDS: Tetracaine HCl/PF 0.5% Oph Sol 4 ML DROPS 1 DROP EYE-RIGHT (08:05)
[2021-05-11 08:06] LABS: Glucose, Whole Blood 108 mg/dL (60-115)
[2021-05-11] MEDS: Tropicamide 1 % Ophth Sol 3 ML BTL 1 DROP EYE-RIGHT ×3 (08:06→08:13)
[2021-05-11] MEDS: Phenylephrine HCL 2.5% Oph SoL 2 ML BOTTLE 1 DROP EYE-RIGHT ×3 (08:08→08:15)
[2021-05-11] MEDS: Lactated Ringers 500 ML 50 ML IV (08:18)
--- NOTE | 2021-05-11 08:54 | HO.PNOPHT ---
Ophthalmology Procedure Procedure Date of Service: 05/11/21 Ophthalmology Viscoelastic: Healsherry Duet Dual Pack Pro Ophthalmology Lenses: TECNIS [id number] (22.5) Procedure Notes: PREOPERATIVE DIAGNOSIS: Decreased visual acuity right eye secondary to cataract POSTOPERATIVE DIAGNOSIS: Same PROCEDURE: Right cataract extraction with intraocular lens insertion SURGEON: Segundo Negrete M.D. ANESTHESIA: Topical/MAC ESTIMATED BLOOD LOSS: None COMPLICATIONS: None After obtaining informed consent, the patient was brought to the operating room suite and placed in the supine position. After adequate sedation per anesthesia, topical drops of Tetracaine were given to the right eye. The eye was then prepped and draped in the usual sterile fashion. The operating room microscope was then positioned over the operative eye and a lid speculum placed. A paracentesis was created. Viscoelastic was then instilled into the anterior chamber. A three plane incision was then created temporally, utilizing a 2.85 mm keratome. Capsulotomy forceps were then utilized to create a circular tear capsulotomy. Hydrodissection and hydrodelineation were carried out until adequate mobilization of the nucleus occurred. Phacoemulsification was then utilized to remove the dense central nucleus followed by removal of the cortical material utilizing the automated aspiration irrigation unit. Viscoelastic was instilled into the posterior capsular bag followed by placement of a posterior chamber intraocular lens without difficulty. The residual Viscoelastic was then removed utilizing the automated IA machine. The wound was checked and found to be watertight. The patient tolerated the procedure well and the lid speculum was removed. Intracameral injection of Vigamox 0.1 mL followed by a subtenon injection of Kenalog-40 0.2 mL were administered. The patient will be seen in the a.m.
[2021-05-11 09:25] VITALS: BP 167/64; PULSE 61; RESP 18; TEMP 36.2; O2SAT 98
== END 2021-05-11 09:27 | disposition home or self-care (01) ==
PROVIDERS: PCP Internal Medicine; Visit Provider Ophthalmology
PROC: (CPT 66985; principal; 2021-05-11 08:50)
DX: H25.11 Age-related nuclear cataract, right eye (principal); H52.4 Presbyopia; H35.00 Unspecified background retinopathy; H18.413 Arcus senilis, bilateral; E03.9 Hypothyroidism, unspecified; I10 Essential (primary) hypertension; M79.7 Fibromyalgia; E11.9 Type 2 diabetes mellitus without complications; J45.909 Unspecified asthma, uncomplicated; Z79.84 Long term (current) use of oral hypoglycemic drugs; Z79.51 Long term (current) use of inhaled steroids; Z79.899 Other long term (current) drug therapy; Z88.8 Allergy status to other drugs, medicaments and biological substances; Z87.891 Personal history of nicotine dependence
CPT/HCPCS: 66984; 82947; J2250; J3010; J3300; V2632

== ENCOUNTER → 2021-05-14 11:03 | Outpatient (BNVA) | payer MEDICARE, SELFPAY | PROVIDERS: PCP Internal Medicine; Visit Provider Dietitian, Registered | DX: E11.65 Type 2 diabetes mellitus with hyperglycemia (principal); I10 Essential (primary) hypertension; E78.5 Hyperlipidemia, unspecified; E06.3 Autoimmune thyroiditis; E03.9 Hypothyroidism, unspecified; E55.9 Vitamin D deficiency, unspecified; J30.2 Other seasonal allergic rhinitis; Z87.891 Personal history of nicotine dependence; Z88.6 Allergy status to analgesic agent; Z91.014 Allergy to mammalian meats; Z71.3 Dietary counseling and surveillance | CPT/HCPCS: 97803 ==

== ENCOUNTER 2021-05-19 11:59 | Outpatient (REF) | payer OTHER, SELFPAY | END 2021-05-19 12:00 | disposition home or self-care (01) | LOC: HO.MDS 11:59 | PROVIDERS: Visit Provider Internal Medicine Pulmonary Disease | DX: J45.50 Severe persistent asthma, uncomplicated (principal) | CPT/HCPCS: 96372; J2357 ==

== ENCOUNTER → 2021-05-28 13:51 | Outpatient (BNVA) | payer OTHER, SELFPAY | PROVIDERS: PCP Internal Medicine; Visit Provider Internal Medicine Pulmonary Disease | DX: J45.40 Moderate persistent asthma, uncomplicated (principal); Z91.09 Other allergy status, other than to drugs and biological substances | CPT/HCPCS: 99212 ==

== ENCOUNTER 2021-06-09 11:36 | Outpatient (REF) | payer OTHER, SELFPAY ==
[2021-06-09 12:42] LABS: Alanine Aminotransferase 18 U/L (0-31); Albumin Level 4.1 g/dL (3.5-5.0); Alkaline Phosphatase 66 U/L (39-117); Anion Gap 13 (12-20); Aspartate Amino Transferase 17 U/L (5-31); Bilirubin Total 0.5 mg/dL (0.0-1.0); Blood Urea Nitrogen 14 mg/dL (9-16); Carbon Dioxide 27 mmol/L (22-29); Chloride 103 mmol/L (96-108); Cholesterol 192 mg/dL; Estimated Glomerular Filt Rate > 60; Glucose Fasting 89 mg/dL (60-99); HDL Cholesterol 51 mg/dL; LDL Cholesterol Calculated 108 mg/dl; Potassium 4.3 mmol/L (3.3-5.1); Sodium 139 mmol/L (135-145); Total Protein 7.2 g/dL (6.5-8.0); Triglycerides 167 mg/dL
[2021-06-09 12:57] LABS: Free T4 (Free Thyroxine) 1.05 ng/dL (0.71-1.85); Thyroid Stimulating Hormone 5.82 uIU/mL (0.32-4.0); Vitamin D 25-OH Total 40.5 ng/mL (>30)
[2021-06-09 13:05] LABS: Vitamin B12 444 pg/mL (200-900)
[2021-06-09 13:19] LABS: Creatinine Urine 44.11 mg/dL; Microalbumin Urine < 5.0 mg/L
[2021-06-11 07:01] LABS: LDL Cholesterol Direct 118 mg/dL (<100)
== END 2021-06-09 11:37 | disposition home or self-care (01) ==
LOC: HO.LAB 11:36
PROVIDERS: Internal Medicine Endocrinology, Diabetes & Metabolism; PCP Internal Medicine; Visit Provider Nurse Practitioner Gerontology
DX: E55.9 Vitamin D deficiency, unspecified (principal); E11.65 Type 2 diabetes mellitus with hyperglycemia
CPT/HCPCS: 36415; 80053; 80061; 82043; 82306; 82607; 83721; 84439; 84443

== ENCOUNTER 2021-06-16 13:16 | Outpatient (REF) | payer OTHER, SELFPAY | END 2021-06-16 13:17 | disposition home or self-care (01) | LOC: HO.MDS 13:16 | PROVIDERS: Visit Provider Internal Medicine Pulmonary Disease | DX: J45.50 Severe persistent asthma, uncomplicated (principal) | CPT/HCPCS: 96372; J2357 ==

== ENCOUNTER → 2021-06-19 13:17 | Outpatient (BNVA) | payer OTHER, SELFPAY | PROVIDERS: PCP Internal Medicine; Visit Provider Nurse Practitioner Gerontology | DX: E11.9 Type 2 diabetes mellitus without complications (principal); E03.9 Hypothyroidism, unspecified; E78.5 Hyperlipidemia, unspecified; E55.9 Vitamin D deficiency, unspecified; E66.3 Overweight; I10 Essential (primary) hypertension; Z79.84 Long term (current) use of oral hypoglycemic drugs | CPT/HCPCS: Q3014 ==

== ENCOUNTER 2021-06-30 09:53 | Emergency (ER) | payer OTHER, SELFPAY ==
--- NOTE | ~2021-06-30 | XR_ITS ---
EXAMINATION: XR ANKLE, LEFT CLINICAL INFORMATION: Lateral malleolar swelling. Question fracture COMPARISON: None TECHNIQUE: AP, lateral, and mortise views of the left ankle. FINDINGS: There is moderate lateral malleolar soft tissue swelling with a nondisplaced distal fibular fracture. The ankle mortise and subtalar joints are normal. There is a small calcaneal heel spur. XR/XR ankle LT 2V IMPRESSION: Nondisplaced distal fibular fracture with moderate lateral malleolar soft tissue swelling.
[2021-06-30 10:08] VITALS: BP 175/63; PULSE 61; RESP 18; TEMP 36.8; O2SAT 98; BMI 28.3
--- NOTE | 2021-06-30 11:31 | ED.LOWEXIN ---
HPI - Extremity Injury (Lower) General Chief Complaint: Fall Stated Complaint: FALL, NO LOC Time Seen by Provider: 06/30/21 11:24 Source: patient Mode of arrival: ambulatory Limitations: no limitations History of Present Illness HPI Narrative: Patient comes emergency room complaining of left ankle pain. Patient states that at 4 in the morning, she was very thirsty, got out of bed, sprained her ankle while walking. Patient states that she did not fall or lose consciousness. Patient is not on blood thinners. Patient states that she had to crawl to the bathroom, when she tried to stand up, states that she injured her left ankle even more. Patient states that she is unable to bear weight. Related Data Home Medications Medication Instructions Recorded Confirmed blood sugar diagnostic #10 ea 11/23/19 09/02/20 cetirizine 10 mg tablet 10 mg PO DAILY 11/23/19 05/07/21 fluticasone 100 mcg-salmeterol 50 1 inh INHALATION DAILY 11/23/19 05/07/21 mcg/dose blistr powdr for inhalation montelukast 10 mg tablet 10 mg PO DAILY 11/23/19 05/07/21 omeprazole 20 mg capsule,delayed 20 mg PO DAILY 11/23/19 06/19/21 release bisoprolol 2.5 1 tab PO DAILY 06/19/21 06/19/21 mg-hydrochlorothiazide 6.25 mg tablet levothyroxine 112 mcg tablet 112 mcg PO DAILY 06/19/21 06/19/21 (Synthroid) mirabegron 25 mg tablet,extended 25 mg PO DAILY 06/19/21 06/19/21 release 24 hr (Myrbetriq) Previous Rx's Medication Instructions Recorded Wheelchair #1 ea 02/29/20 walker #1 ea 02/29/20 Scooter #1 ea 03/11/20 losartan 25 mg tablet 25 mg PO DAILY 90 Days #90 tab 05/21/20 blood sugar diagnostic (FreeStyle #100 ea 06/19/20 Lite Strips) blood-glucose meter (FreeStyle #1 ea 06/19/20 Lite Meter) lancets 28 gauge (FreeStyle #100 ea 06/19/20 Lancets) metformin 500 mg tablet,extended 500 mg PO DAILY 90 Days #90 tab 06/19/20 release 24 hr hydrocortisone 1 % topical cream 1 appl TOPICAL BID PRN 14 Days 09/03/20 (Anti-Itch (hydrocortisone)) #28.4 g ibuprofen 800 mg tablet 800 mg PO Q8H PRN 30 Days #90 tab 11/09/20 calcium citrate 315 mg-vitamin D3 2 tab PO BID 30 Days #120 tab 12/10/20 5 mcg (200 unit) tablet (Calcium Citrate + D) sitagliptin 100 mg tablet 100 mg PO DAILY 90 Days #90 tab 03/18/21 omalizumab 150 mg/mL subcutaneous 150 mg SUBCUT Q4W 28 Days #1 ml 05/12/21 syringe (Xolair) ipratropium 0.5 mg-albuterol 3 mg 3 ml INHALATION Q4-6H PRN 30 Days 05/22/21 (2.5 mg base)/3 mL nebulization #180 ml soln cholecalciferol (vitamin D3) 50 50 mcg PO DAILY 90 Days #90 cap 06/17/21 mcg (2,000 unit) capsule rosuvastatin 10 mg tablet 10 mg PO DAILY #30 tab 06/19/21 acetaminophen 500 mg capsule 500 mg PO Q6H PRN #20 cap 06/30/21 Allergies Allergy/AdvReac Type Severity Reaction Status Date / Time aspirin [ASPIRIN] Allergy Severe ANAPHYLAXIS Verified 05/28/21 13:56 Pork/Porcine Containing Allergy Severe ANAPHYLAXIS Verified 05/28/21 13:56 Products [PORK/PORCINE CONTAINING PRODUCTS] Seasonal Allergies Allergy Intermediate asthma, Verified 05/28/21 13:56 itch, rash Review of Systems Review of Systems: Constitutional : No Weight loss, No Fever, No Chills, No Night Sweats, No Fatigue, No Malaise ENT/Mouth : No Hearing loss, No Ear Pain, No Nasal Congestion, No Sinus Pain, No Hoarseness, No sore throat, No Rhinorrhea, No Swallowing Difficulty Eyes: No Eye Pain, No Swelling, No Redness, No Foreign Body, No Discharge, No Vision Changes Cardiovascular : No Chest Pain, No SOB, No Dyspnea on Exertion, No Orthopnea, No Edema, No Palpitations Respiratory : No Cough, No Sputum, No Wheezing, No Smoke Exposure, No Dyspnea Gastrointestinal : No Nausea, No Vomiting, No Diarrhea, No Constipation, No abdominal Pain, No Hematochezia, No Melena Genitourinary : no irregular bleeding, No Dysuria, No Urinary Frequency, No Hematuria, No Urinary Incontinence, No Urgency, No Flank Pain, No Urinary Flow Changes, No Hesitancy Musculoskeletal : Complaining of left ankle pain, No Myalgias, No Joint Swelling Skin : No Skin Lesions, No rash Neuro : No Weakness, No Numbness, No Paresthesias, No Loss of Consciousness, No Dizziness, No Headache Psych : No Anxiety/Panic, No Depression, No SI/HI/AH/VH, No Social Issues, Heme/Lymph: No Bruising, No Bleeding,No Lymphadenopathy Endocrine : No Polyuria, No Polydipsia, No Temperature Intolerance [facility] Past Medical History Medical History Addiction, opium Arthritis Autoimmune thyroiditis Depression with anxiety Diabetes type 2, uncontrolled Dyslipidemia Essential hypertension Hypothyroidism (acquired) Obesity (BMI 30-39.9) Osteopenia Overweight (BMI 25.0-29.9) Vitamin D deficiency Surgical History History of radical hysterectomy Hx of arthroscopy of knee Hx of cataract surgery Family History Family History Father Diabetes Mother No problems noted. Son Substance use disorder Social History Social History Housing: Condominium Alcohol intake: never Patient Tobacco Use Status: Former Tobacco user Tobacco use type: Cigarette e-Cigarette/Vaping Use: Never Used Second Hand Smoke Exposure: No Advance Directives: No Advance Directives Information Provided: No service: No Current occupational status: retired Physical Exam Vital Signs: Vital Signs: Last Vital Signs Temp 98.3 F 06/30/21 10:08 Pulse 61 06/30/21 10:08 Resp 18 06/30/21 10:08 BP 175/63 H 06/30/21 10:08 Pulse Ox 98 06/30/21 10:08 BMI result Body Mass Index 28.3 Const: Other: Appearance: Alert. Oriented X3. No acute distress. Eyes: Pupils equal, round and reactive to light. ENT: Pharynx normal. Neck: Normal inspection. Neck supple. No lymph nodes noted. No crepitus CVS: Normal heart rate and rhythm. Pulses normal. Normal S1 and S2 Respiratory: No respiratory distress. Breath sounds normal. No Wheezing. No rales Abdomen: Soft and nontender. No rigidity. No distention. Skin: Skin warm and dry. Normal skin color. Normal skin turgor. Extremities: Left ankle swelling, pain to palpation over the lateral malleolus Neuro: Oriented X 3. No motor deficit. No sensory deficit. Moving all extremities. No slurred speech. CN 2 through 12 grossly intact Psych: calm, cooperative, normal affect Course Course Course Narrative: Ankle x-ray pending. I discussed with the patient that she does have a fibular fracture. Patient will be placed on a splint. Patient cannot do crutches and she cannot bear weight and use a walker. I discussed the patient with a received from case management. We are going to obtain a case management/PT eval to the term in disposition Physician observation started at 13:05 Physical therapy evaluated the patient, patient did well walking on an air cast. Patient will be discharged home. MDM - Extremity Injury (Lower) Lab Data Labs: Lab Results 06/30/21 Range/Units 11:48 POC Glucose 88 (60-115) mg/dL Discharge Plan Discharge Clinical Impression: Closed fibular fracture Patient Disposition: Home, Self-Care Instructions: Ankle Fracture (ED) Additional Instructions: Please follow-up with your primary care physician and Orthopedics tomorrow. If you have any worsening or new symptoms, please return to the emergency room or call 911 Prescriptions: New acetaminophen 500 mg capsule 500 mg PO Q6H PRN (Reason: pain) Qty: 20 0RF No Action (DME) Scooter See Rx Instructions .Route .MEDSUPPLY Qty: 1 0RF Rx Instructions: As directed losartan 25 mg tablet 25 mg PO DAILY 90 Days Qty: 90 2RF (DME) FreeStyle Lite Strips Strip See Rx Instructions .MEDSUPPLY Qty: 100 6RF Rx Instructions: 2 times a day (DME) blood-glucose meter [FreeStyle Lite Meter] Kit See Rx Instructions miscellaneous .MEDSUPPLY Qty: 1 0RF Rx Instructions: 3 times a day (DME) lancets [FreeStyle Lancets] 28 gauge misc See Rx Instructions .MEDSUPPLY Qty: 100 8RF Rx Instructions: Twice a day hydrocortisone [Anti-Itch (HC)] 1 % cream 1 appl topical BID PRN (Reason: skin irritation) 14 Days Qty: 28.4 0RF ibuprofen 800 mg tablet 800 mg PO Q8H PRN (Reason: pain) 30 Days Qty: 90 0RF calcium citrate-vitamin D3 [Calcium Citrate + D] 315 mg-5 mcg (200 unit) tablet 2 tab PO BID 30 Days Qty: 120 4RF Xolair 150 mg/mL syringe 150 mg subcut Q4W 28 Days Qty: 1 12RF ipratropium-albuterol 0.5 mg-3 mg(2.5 mg base)/3 mL solution for nebulization 3 ml inhalation Q4-6H PRN (Reason: wheezing) 30 Days Qty: 180 6RF cholecalciferol (vitamin D3) 50 mcg (2,000 unit) capsule 50 mcg PO DAILY 90 Days Qty: 90 2RF metformin 500 mg tablet extended release 24 hr 500 mg PO DAILY 90 Days Qty: 90 1RF (DME) Wheelchair See Rx Instructions .Route .MEDSUPPLY Qty: 1 0RF Rx Instructions: Wheelchair (DME) walker Misc See Rx Instructions .MEDSUPPLY Qty: 1 0RF Rx Instructions: Walker without wheels sitagliptin 100 mg tablet 100 mg PO DAILY 90 Days Qty: 90 1RF montelukast 10 mg tablet 10 mg PO DAILY 0RF cetirizine 10 mg tablet 10 mg PO DAILY 0RF omeprazole 20 mg capsule,delayed release(DR/EC) 20 mg PO DAILY 0RF fluticasone propion-salmeterol 100-50 mcg/dose blister with device 1 inh inhalation DAILY 0RF (DME) OneTouch Ultra Blue Test Strip Strip See Rx Instructions ea Not Applicable BID Qty: 10 0RF Rx Instructions: As directed bisoprolol-hydrochlorothiazide 2.5-6.25 mg tablet 1 tab PO DAILY 0RF Myrbetriq 25 mg tablet extended release 24 hr 25 mg PO DAILY 0RF levothyroxine [Synthroid] 112 mcg tablet 112 mcg PO DAILY 0RF rosuvastatin 10 mg tablet 10 mg PO DAILY Qty: 30 6RF Referrals: Jenae Kumar PA-C [[employer]ician [employer]] - 2 days
[2021-06-30] MEDS: Acetaminophen 325 MG TABLET 975 MG PO (11:43)
[2021-06-30 11:52] LABS: Glucose, Whole Blood 88 mg/dL (60-115)
[2021-06-30 13:34] VITALS: BP 175/63; PULSE 61; O2SAT 98
--- NOTE | 2021-06-30 14:44 | MHC.CM.ED ---
Received case management consult from Dr Norman. Patient came to the ER due to a fall. Work up showed Left fibula fx. Physical therapy eval completed. Home therapy is recommended. Patient is active with [facility]. Per Hilda at [facility], referral for physical therapy can be referred to Darrel DENIS. Referral made via [facility]. Patient received 3 Pfizer vaccines. PCP is Carlitos Rodriguez. Continue to monitor for d/c needs.
== END 2021-06-30 14:58 | disposition home or self-care (01) ==
PROVIDERS: Emergency Provider Emergency Medicine
DX: S82.402A Unspecified fracture of shaft of left fibula, initial encounter for closed fracture (principal); Y29.XXXA Contact with blunt object, undetermined intent, initial encounter; Y93.9 Activity, unspecified; Y92.009 Unspecified place in unspecified non-institutional (private) residence as the place of occurrence of the external cause; Y99.9 Unspecified external cause status; Z79.899 Other long term (current) drug therapy; Z87.891 Personal history of nicotine dependence
CPT/HCPCS: 29515; 73600; 82947; 97162; 99282; 99284

== ENCOUNTER 2021-07-14 12:22 | Outpatient (REF) | payer OTHER, SELFPAY | END 2021-07-14 12:23 | disposition home or self-care (01) | LOC: HO.MDS 12:22 | PROVIDERS: Visit Provider Internal Medicine Pulmonary Disease | DX: J45.50 Severe persistent asthma, uncomplicated (principal) | CPT/HCPCS: 96372; J2357 ==

== ENCOUNTER 2021-09-09 14:57 | Outpatient (REF) | payer OTHER, SELFPAY | END 2021-09-09 14:58 | disposition home or self-care (01) | LOC: HO.MDS 14:57 | PROVIDERS: Visit Provider Internal Medicine Pulmonary Disease | DX: J45.50 Severe persistent asthma, uncomplicated (principal) | CPT/HCPCS: 96372; J2357 ==

== ENCOUNTER 2021-10-23 15:47 | Outpatient (REF) | payer OTHER, SELFPAY ==
[2021-10-23 17:38] LABS: Folate 15.1 ng/mL (> or = 4.0); Vitamin B12 511 pg/mL (200-900)
[2021-10-28 12:32] LABS: Vitamin D 25-OH, D2 <4 ng/mL; Vitamin D 25-OH, D3 28 ng/mL; Vitamin D 25-OH, Total 28 ng/mL (30-100)
== END 2021-10-23 15:48 | disposition home or self-care (01) ==
LOC: HO.LAB 15:47
PROVIDERS: PCP Internal Medicine; Visit Provider Nurse Practitioner Family
DX: R19.7 Diarrhea, unspecified (principal); E55.9 Vitamin D deficiency, unspecified; R13.10 Dysphagia, unspecified; K59.04 Chronic idiopathic constipation; R14.0 Abdominal distension (gaseous)
CPT/HCPCS: 36415; 82306; 82607; 82746; 84443; 99202; 99212

== ENCOUNTER 2021-10-26 10:31 | Outpatient (REF) | payer OTHER, SELFPAY | END 2021-10-26 10:32 | disposition home or self-care (01) | LOC: HO.MDS 10:31 | PROVIDERS: Visit Provider Internal Medicine Pulmonary Disease | DX: J45.50 Severe persistent asthma, uncomplicated (principal) | CPT/HCPCS: 96372; J2357 ==

== ENCOUNTER → 2021-10-28 11:21 | Outpatient (BNVA) | payer OTHER, SELFPAY | PROVIDERS: PCP Internal Medicine; Visit Provider Internal Medicine Pulmonary Disease | DX: J45.40 Moderate persistent asthma, uncomplicated (principal); Z91.09 Other allergy status, other than to drugs and biological substances; Z79.899 Other long term (current) drug therapy | CPT/HCPCS: 99212 ==

== ENCOUNTER → 2021-11-06 10:42 | Outpatient (BNVA) | payer OTHER, SELFPAY | PROVIDERS: PCP Internal Medicine; Visit Provider Nurse Practitioner Family | DX: Z11.0 Encounter for screening for intestinal infectious diseases (principal) | CPT/HCPCS: 99211 ==

== ENCOUNTER 2021-11-06 11:19 | Outpatient (REF) | payer OTHER, SELFPAY ==
[2021-11-10 14:47] LABS: H Pylori Breath Test Negative (Negative)
== END 2021-11-06 11:20 | disposition home or self-care (01) ==
LOC: HO.LNP 11:19
PROVIDERS: Visit Provider Nurse Practitioner Family
DX: K21.9 Gastro-esophageal reflux disease without esophagitis (principal)
CPT/HCPCS: 83013

== ENCOUNTER → 2021-11-12 10:29 | Outpatient (BNVA) | payer OTHER, SELFPAY | PROVIDERS: PCP Internal Medicine; Visit Provider Internal Medicine Pulmonary Disease | DX: J45.40 Moderate persistent asthma, uncomplicated (principal) | CPT/HCPCS: 99211 ==

== ENCOUNTER 2021-11-25 13:11 | Outpatient (RCR) | payer OTHER, SELFPAY | END 2022-01-04 13:07 | disposition home or self-care (01) | LOC: HO.PT 13:11 | PROVIDERS: PCP Internal Medicine; Visit Provider Orthopaedic Surgery | DX: M43.27 Fusion of spine, lumbosacral region (principal) | CPT/HCPCS: 97110; 97162 ==

== ENCOUNTER 2021-11-27 14:26 | Outpatient (REF) | payer OTHER, SELFPAY ==
[2021-11-27 15:36] LABS: Alanine Aminotransferase 18 U/L (0-31); Albumin Level 4.1 g/dL (3.5-5.0); Alkaline Phosphatase 84 U/L (39-117); Aspartate Amino Transferase 23 U/L (5-31); Bilirubin Direct 0.3 mg/dL (0.0-0.5); Bilirubin Total 0.7 mg/dL (0.0-1.0); Lipase 24 U/L (8-78); Total Protein 7.3 g/dL (6.5-8.0)
[2021-12-01 05:43] LABS: Transglutaminase Ab IgG <1.0 U/mL; Transglutaminase IgA <1.0 U/mL
== END 2021-11-27 14:27 | disposition home or self-care (01) ==
LOC: HO.LAB 14:26
PROVIDERS: PCP Internal Medicine; Visit Provider Nurse Practitioner Family
DX: R10.9 Unspecified abdominal pain (principal); K21.9 Gastro-esophageal reflux disease without esophagitis; K58.2 Mixed irritable bowel syndrome; R14.0 Abdominal distension (gaseous)
CPT/HCPCS: 36415; 80076; 83690; 86364; 99212

== ENCOUNTER 2021-12-01 11:36 | Outpatient (REF) | payer OTHER, SELFPAY ==
[2021-12-09 16:36] LABS: Pancreatic Elastase-1 >500 mcg/g
== END 2021-12-01 11:37 | disposition home or self-care (01) ==
LOC: HO.LNP 11:36
PROVIDERS: Visit Provider Nurse Practitioner Family
DX: R10.9 Unspecified abdominal pain (principal)
CPT/HCPCS: 82656

== ENCOUNTER → 2021-12-03 10:37 | Outpatient (BNVA) | payer OTHER, SELFPAY | PROVIDERS: PCP Internal Medicine; Visit Provider Internal Medicine Pulmonary Disease | DX: J45.40 Moderate persistent asthma, uncomplicated (principal); Z91.09 Other allergy status, other than to drugs and biological substances; Z79.899 Other long term (current) drug therapy | CPT/HCPCS: 99212 ==

== ENCOUNTER 2021-12-19 15:31 | Emergency (ER) | payer OTHER, SELFPAY ==
--- NOTE | ~2021-12-19 | US_ITS ---
EXAMINATION: US VENOUS WITH DOPPLER UPPER EXTREMITY, RIGHT CLINICAL INFORMATION: Swallowing COMPARISON: None TECHNIQUE: Ultrasound of the upper extremity is performed using compression sonography and color and pulse Doppler flow with assessment of augmentation of flow. There is also imaging and Doppler assessment of the jugular and subclavian veins. Spectral analysis with color-flow imaging is performed. FINDINGS: Respiratory variation, normal compression, and augmented flow are noted throughout the upper extremity including the axillary, brachial, cubital, and radial and ulnar veins. There is normal flow in the internal jugular and subclavian veins. There is no visible deep or superficial thrombophlebitis. If the patient's symptoms progress, a followup ultrasound in 5 -7 days might be of value to exclude proximal propagation from a nonvisualized distal arm vein. US/US venous duplex UE RT IMPRESSION: No DVT demonstrated in the right upper extremity.
--- NOTE | ~2021-12-19 | XR_ITS ---
EXAMINATION: XR HAND, RIGHT CLINICAL INFORMATION: Pain swelling COMPARISON: None available at the time of this dictation. TECHNIQUE: Frontal lateral oblique views of the hand were obtained. FINDINGS: There are degenerative osteoarthritic changes of the first carpometacarpal joint and medial intercarpal joints. No bone erosions.There is no fracture or dislocation. Radiocarpal, intercarpal, carpometacarpal, metacarpophalangeal and interphalangeal joints are intact. There are no osteolytic or osteoblastic lesions. There are no bone erosions. Surrounding soft tissue unremarkable. XR/XR hand wrist RT IMPRESSION: 1. No radiographic evidence of bone erosions. 2. Underlying degenerative osteoarthritis especially first CMC..
[2021-12-19 15:38] VITALS: BP 134/76; PULSE 72; O2SAT 98
[2021-12-19 17:04] VITALS: BP 139/50; PULSE 93; RESP 16; TEMP 36.5; O2SAT 97; BMI 29.5
--- NOTE | 2021-12-19 17:04 | ED.EXTPRO ---
HPI - Extremity Problem General Chief complaint: Extremity Problem Stated complaint: r hand pain Time Seen by Provider: 12/19/21 19:07 Source: patient Mode of arrival: ambulatory Limitations: no limitations History of Present Illness HPI Narrative: 76-year-old Ukrainian-speaking female presenting to the ED with complaints of atraumatic right hand pain/swelling/redness that started over the past few days. She reports that she seen her primary care provider on and was prescribed Keflex and prednisone reports she took a proximally 4 pills of the Keflex and gave her diarrhea therefore she just continue taking that. She reports that she could not take the prednisone because of her history of diabetes and will raise her glucose levels. She reports that her mother has a history of gout. She reports recent travel to [place]. She denies any fevers. She reports that the pain and swelling have reduced although the redness is the same since she was seen by her primary care provider. She denies chest pain or shortness of breath or any other symptoms complaints or concerns at this time. MD Complaint: extremity pain and extremity swelling Onset (ago): day(s) (Past few days) Pain Consistency: constant Location: right and upper extremity (hand/wrist) Quality: aching Radiation: none Relieving factors: nothing Exacerbating factors: range of motion and palpation Associated symptoms: denies other symptoms Related Data Home Medications Medication Instructions Recorded Confirmed blood sugar diagnostic #10 ea 11/23/19 11/12/21 cetirizine 10 mg tablet 10 mg PO DAILY 11/23/19 11/12/21 montelukast 10 mg tablet 10 mg PO DAILY 11/23/19 11/12/21 bisoprolol 2.5 1 tab PO DAILY 06/19/21 11/12/21 mg-hydrochlorothiazide 6.25 mg tablet levothyroxine 112 mcg tablet 112 mcg PO DAILY 06/19/21 11/12/21 (Synthroid) mirabegron 25 mg tablet,extended 25 mg PO DAILY 06/19/21 11/12/21 release 24 hr (Myrbetriq) Previous Rx's Medication Instructions Recorded Wheelchair #1 ea 02/29/20 walker #1 ea 02/29/20 Scooter #1 ea 03/11/20 losartan 25 mg tablet 25 mg PO DAILY 90 days #90 tabs 05/21/20 blood-glucose meter (FreeStyle #1 ea 06/19/20 Lite Meter kit) lancets 28 gauge (FreeStyle #100 ea 06/19/20 Lancets) metformin 500 mg tablet,extended 500 mg PO DAILY 90 days #90 tabs 06/19/20 release 24 hr hydrocortisone 1 % topical cream 1 appl topical BID PRN skin 09/03/20 (Anti-Itch (hydrocortisone)) irritation 14 days #28.4 grams calcium citrate 315 mg-vitamin D3 2 tab PO BID 30 days #120 tabs 12/10/20 5 mcg (200 unit) tablet (Calcium Citrate + D) sitagliptin 100 mg tablet 100 mg PO DAILY 90 days #90 tabs 03/18/21 ipratropium 0.5 mg-albuterol 3 mg 3 ml inhalation Q4-6H PRN wheezing 05/22/21 (2.5 mg base)/3 mL nebulization 30 days #180 mL soln rosuvastatin 10 mg tablet 10 mg PO DAILY #30 tabs 06/19/21 acetaminophen 500 mg capsule 500 mg PO Q6H PRN pain #20 caps 06/30/21 fluticasone 500 mcg-salmeterol 50 1 inh inhalation BID 30 days #60 ea 10/28/21 mcg/dose blistr powdr for inhalation (Advair Diskus) blood sugar diagnostic (FreeStyle #100 ea 11/12/21 Lite Strips) cholecalciferol (vitamin D3) 50 50 mcg PO DAILY 90 days #90 caps 11/27/21 mcg (2,000 unit) capsule famotidine 20 mg tablet (Pepcid) 20 mg PO BEDTIME #30 tabs 11/27/21 wheat dextrin 3 gram/3.5 gram oral 1 packet PO DAILY #28 ea 11/27/21 powder packet (Benefiber Clear Sugar Free(dextrin)) cephalexin 500 mg capsule 500 mg PO Q6H 10 days #40 caps 12/19/21 doxycycline monohydrate 100 mg 100 mg PO BID 10 days #20 tabs 12/19/21 tablet Allergies Allergy/AdvReac Type Severity Reaction Status Date / Time aspirin [ASPIRIN] Allergy Severe ANAPHYLAXIS Verified 12/19/21 17:06 Seasonal Allergies Allergy Intermediate asthma, Verified 12/19/21 17:06 itch, rash Review of Systems Review of Systems: Constitutional : No Weight loss, No Fever, No Chills, No Night Sweats, No Fatigue, No Malaise ENT/Mouth : No Hearing loss, No Ear Pain, No Nasal Congestion, No Sinus Pain, No Hoarseness, No sore throat, No Rhinorrhea, No Swallowing Difficulty Eyes: No Eye Pain, No Swelling, No Redness, No Foreign Body, No Discharge, No Vision Changes Cardiovascular : No Chest Pain, No SOB, No Dyspnea on Exertion, No Orthopnea, No Edema, No Palpitations Respiratory : No Cough, No Sputum, No Wheezing, No Smoke Exposure, No Dyspnea Gastrointestinal : No Nausea, No Vomiting, No Diarrhea, No Constipation, No abdominal Pain, No Hematochezia, No Melena Genitourinary : no irregular bleeding, No Dysuria, No Urinary Frequency, No Hematuria, No Urinary Incontinence, No Urgency, No Flank Pain, No Urinary Flow Changes, No Hesitancy Musculoskeletal : + right hand/wrist joint pain/swelling/redness, No Myalgias Skin : No Skin Lesions, No rash Neuro : No Weakness, No Numbness, No Paresthesias, No Loss of Consciousness, No Dizziness, No Headache Psych : No Anxiety/Panic, No Depression, No SI/HI/AH/VH, No Social Issues, Heme/Lymph: No Bruising, No Bleeding,No Lymphadenopathy Endocrine : No Polyuria, No Polydipsia, No Temperature Intolerance Yes all other systems are reviewed and are negative [facility] Past Medical History Attestation statement: The following information was validated with the patient. Source: old records reviewed and nursing notes reviewed Medical History Addiction, opium Arthritis Autoimmune thyroiditis Depression with anxiety Diabetes type 2, uncontrolled Dyslipidemia Essential hypertension Hypothyroidism (acquired) Obesity (BMI 30-39.9) Osteopenia Overweight (BMI 25.0-29.9) Vitamin D deficiency Surgical History History of radical hysterectomy Hx of arthroscopy of knee Hx of cataract surgery Family History Family History Father Diabetes Mother No problems noted. Son Substance use disorder Social History Social History Housing: Condominium Alcohol intake: never Patient Tobacco Use Status: Former Tobacco user Tobacco use type: Cigarette Smoked in Last 30 Days: No e-Cigarette/Vaping Use: Never Used Second Hand Smoke Exposure: No Use of substances other than those prescribed or required for medical reasons: No Advance Directives: No Advance Directives Information Provided: No service: No Current occupational status: retired Physical Exam Vital Signs: Vital Signs: Last Vital Signs Temp 98.4 F 12/19/21 19:23 Pulse 83 12/19/21 19:23 Resp 17 12/19/21 19:23 BP 124/67 12/19/21 19:23 Pulse Ox 97 12/19/21 19:23 O2 Del Method 12/19/21 19:23 BMI result Body Mass Index 29.5 vital signs have been reviewed as normal and appeared to be correct. Blood pressure normal Heart rate normal. Respiration rate normal. Temperature normal. Oxygen saturation normal. Appearance: Alert. Oriented X3. No acute distress. Head: Normal external exam. Normocephalic. Atraumatic. Eyes: PERRLA. EOMI. Conjunctiva and sclera normal. Eyelids normal. ENT: Pharynx normal. Uvula midline. Moist mucous membranes. Neck: Normal inspection. Neck supple. FROM. CVS: Normal heart rate and rhythm. Respiratory: No respiratory distress. Painless inspiration. Skin: Skin warm and dry. Normal skin color. Normal skin turgor. No rashes/lesions/lacerations noted. Extremities: To right hand dorsal aspect patient has mild tenderness palpation and soft tissue swelling and ecchymosis and warm to touch. No streaking/induration/fluctuance or foreign bodies noted. Patient has full range of motion of right hand/finger/wrist joint. Not consistent with septic joint. Not consistent with tenosynovitis. Not consistent with abscess. No upper extremity edema noted. She has full range of motion of all other extremities and they are nontender. Neuro: Oriented X 3. No motor deficit. No sensory deficit. Reflexes normal. Normal steady gait. No focal neuro deficits noted. Vascular: + radial pulses/+ 2 distal pedal pulses/+2 dorsalis pedis b/l. Normal cap refill. No cyanosis noted to upper extremity nails and lower extremity toes nails. Course Reevaluation(s) Reevaluation #1: RME - 76-year-old Ukrainian-speaking female presenting to the ED with complaints of atraumatic right hand pain/swelling/redness that started over the past few days. She reports that she seen her primary care provider on and was prescribed Keflex and prednisone reports she took a proximally 4 pills of the Keflex and gave her diarrhea therefore she just continue taking that. She reports that she could not take the prednisone because of her history of diabetes and will raise her glucose levels. She reports that her mother has a history of gout. She reports recent travel to [place]. She denies any fevers. She reports that the pain and swelling have reduced although the redness is the same since she was seen by her primary care provider. She denies chest pain or shortness of breath or any other symptoms complaints or concerns at this time. Plan: Will obtain labs including uric acid. Obtain a venous duplex ultrasound of upper extremity although patient has +2 radial pulses to the right extremity there is no obvious pitting edema. Will also obtain an x-ray. Patient is stable she will be sent back to the waiting room. Time: 17:04 Reevaluation #2: - labs reviewed and patient is carbon dioxide 32. Otherwise all other labs including uric acid within normal limits. X-ray revealed arthritis otherwise no other acute processes. Venous duplex ultrasound of right upper extremity negative for DVT. Patient most likely cellulitis infection. Will DC home antibiotics and instructions return if any new or worsening symptoms follow up with primary care provider. Patient understands agrees with this plan. Time: 20:29 MDM - Extremity (Nontraumatic) Lab Data Attestation: I reviewed the patient's lab results. Result diagrams: 12/19/21 19:16 12/19/21 19:16 Labs: Lab Results 12/19/21 12/19/21 12/19/21 Range/Units 19:16 19:16 19:16 WBC 8.6 (4.8-10.8) X10*3/uL RBC 4.70 (4.20-5.50) X10*6/uL Hgb 13.1 (12.0-16.0) g/dl Hct 40.3 (37.0-47.0) % MCV 85.7 (80.0-98.0) fL MCH 27.9 (27.0-33.0) pg MCHC 32.5 (31.0-35.0) g/dl RDW 13.1 (11.0-16.0) % Plt Count 263 (160-400) X10*3/uL MPV 10.6 (9.4-12.3) fL Immature Gran % (Auto) 0.3 (0.0-0.4) % Neut % (Auto) 60.7 (45-73) % Lymph % (Auto) 27.0 (20-40) % [place] % (Auto) 10.1 (2-11) % Eos % (Auto) 1.3 (0-4) % Baso % (Auto) 0.6 (0-2) % Lymph # (Auto) 2.3 (1.2-4.9) X10*3/uL [place] # (Auto) 0.9 (0.1-1.2) X10*3/uL Eos # (Auto) 0.1 (0.0-0.4) X10*3/uL Baso # (Auto) 0.1 (0.0-0.2) X10*3/uL Abs Immat Gran (auto) 0.03 (0.00-0.03) X10*3/uL Absolute Neuts (auto) 5.3 (2.0-8.3) x10*3/uL Absolute Nucleated RBC 0.000 (0.0-0.012) X10*3/uL Nucleated RBC % (auto) 0.0 (0.0-0.2) /100WBC PT 12.0 (10.0-13.1) SEC INR 1.0 (0.9-1.1) Sodium 143 (135-145) mmol/L Potassium 3.6 (3.3-5.1) mmol/L Chloride 102 (96-108) mmol/L Carbon Dioxide 32 H (22-29) mmol/L Anion Gap 13 (12-20) BUN 11 (9-16) mg/dL Creatinine 0.77 (0.5-1.4) mg/dL Estim Creat Clear Calc 57.6 Estimated GFR > 60 Random Glucose 112 (60-115) mg/dL Uric Acid 4.6 (2.4-5.7) mg/dL Calcium 9.4 (8.4-10.2) mg/dL Magnesium 2.1 (1.6-2.6) mg/dL Total Bilirubin 0.4 (0.0-1.0) mg/dL AST 14 (5-31) U/L ALT 13 (0-31) U/L Alkaline Phosphatase 80 (39-117) U/L Total Protein 7.1 (6.5-8.0) g/dL Albumin 3.9 (3.5-5.0) g/dL Imaging Data Right hand/wrist x-ray: Attestation: I personally reviewed and interpreted this imaging study as follows: Radiologist's impression: FINDINGS: There are degenerative osteoarthritic changes of the first carpometacarpal joint and medial intercarpal joints. No bone erosions.There is no fracture or dislocation. Radiocarpal, intercarpal, carpometacarpal, metacarpophalangeal and interphalangeal joints are intact. There are no osteolytic or osteoblastic lesions. There are no bone erosions. Surrounding soft tissue unremarkable. XR/XR hand wrist RT IMPRESSION: 1.? No radiographic evidence of bone erosions. 2.? Underlying degenerative osteoarthritis especially first CMC.. Venous duplex ultrasound of right upper extremity: Attestation: I personally reviewed and interpreted this imaging study as follows: Radiologist's impression: FINDINGS: Respiratory variation, normal compression, and augmented flow are noted throughout the upper extremity including the axillary, brachial, cubital, and radial and ulnar veins. There is normal flow in the internal jugular and subclavian veins. There is no visible deep or superficial thrombophlebitis. If the patient's symptoms progress, a followup ultrasound in 5 -7 days might be of value to exclude proximal propagation from a nonvisualized distal arm vein. US/US venous duplex UE RT IMPRESSION: No DVT demonstrated in the right upper extremity. Discharge Plan Discharge Clinical Impression: Cellulitis of hand, right, Arthritis of right hand Patient Disposition: Home, Self-Care Instructions: Cellulitis (ED), Arthritis (ED) Prescriptions: New doxycycline monohydrate 100 mg tablet 100 mg PO BID 10 Days Qty: 20 0RF cephalexin 500 mg capsule 500 mg PO Q6H 10 Days Qty: 40 0RF No Action (DME) Scooter See Rx Instructions .Route .MEDSUPPLY Qty: 1 0RF Rx Instructions: As directed losartan 25 mg tablet 25 mg PO DAILY 90 Days Qty: 90 2RF (DME) blood-glucose meter [FreeStyle Lite Meter] Kit See Rx Instructions miscellaneous .MEDSUPPLY Qty: 1 0RF Rx Instructions: 3 times a day (DME) lancets [FreeStyle Lancets] 28 gauge misc See Rx Instructions .MEDSUPPLY Qty: 100 8RF Rx Instructions: Twice a day hydrocortisone [Anti-Itch (HC)] 1 % cream 1 appl topical BID PRN (Reason: skin irritation) 14 Days Qty: 28.4 0RF calcium citrate-vitamin D3 [Calcium Citrate + D] 315 mg-5 mcg (200 unit) tablet 2 tab PO BID 30 Days Qty: 120 4RF ipratropium-albuterol 0.5 mg-3 mg(2.5 mg base)/3 mL solution for nebulization 3 ml inhalation Q4-6H PRN (Reason: wheezing) 30 Days Qty: 180 6RF (DME) FreeStyle Lite Strips Strip See Rx Instructions .MEDSUPPLY Qty: 100 6RF Rx Instructions: 2 times a day acetaminophen 500 mg capsule 500 mg PO Q6H PRN (Reason: pain) Qty: 20 0RF metformin 500 mg tablet extended release 24 hr 500 mg PO DAILY 90 Days Qty: 90 1RF (DME) Wheelchair See Rx Instructions .Route .MEDSUPPLY Qty: 1 0RF Rx Instructions: Wheelchair (DME) walker Misc See Rx Instructions .MEDSUPPLY Qty: 1 0RF Rx Instructions: Walker without wheels sitagliptin 100 mg tablet 100 mg PO DAILY 90 Days Qty: 90 1RF montelukast 10 mg tablet 10 mg PO DAILY cetirizine 10 mg tablet 10 mg PO DAILY (DME) OneTouch Ultra Blue Test Strip Strip See Rx Instructions Not Applicable BID Qty: 10 Rx Instructions: As directed bisoprolol-hydrochlorothiazide 2.5-6.25 mg tablet 1 tab PO DAILY Myrbetriq 25 mg tablet extended release 24 hr 25 mg PO DAILY levothyroxine [Synthroid] 112 mcg tablet 112 mcg PO DAILY rosuvastatin 10 mg tablet 10 mg PO DAILY Qty: 30 6RF fluticasone propion-salmeterol [Advair Diskus] 500-50 mcg/dose blister with device 1 inh inhalation BID 30 Days Qty: 60 6RF cholecalciferol (vitamin D3) 50 mcg (2,000 unit) capsule 50 mcg PO DAILY 90 Days Qty: 90 2RF famotidine [Pepcid] 20 mg tablet 20 mg PO BEDTIME Qty: 30 3RF Benefiber Clear SF (dextrin) 3 gram/3.5 gram powder in packet 1 packet PO DAILY Qty: 28 5RF Rx Instructions: mix into at least 4 oz water or juice before administering Referrals: Physician,Unknown J [Primary Care Provider] - (your pcp) Stand Alone Forms: Work/School Release Print Language: Ukrainian
[2021-12-19 19:23] VITALS: BP 124/67; PULSE 83; RESP 17; TEMP 36.9; O2SAT 97
--- NOTE | 2021-12-19 19:27 | PC.NURSE ---
Pt states she got the covid vaccine on and started to experience extreme pain the same day in her R hand and it began to swell and have redness. She was unable to open and close her hand due to the extreme amount of pain. She was prescribed antiobiotics and prednisone yesterday at [facility]. She stated after taking those meds she began to experience diarrhea and the pain increased in her hand and she was very dizzy. She also noted that dizziness was present ater the vaccine as well. She also had an overwheming feeling of anxiety that took place out of nowhere after taking the medications. She also stated that the swelling in the hand has gone down.
[2021-12-19 19:34] LABS: MANUAL DIFF FLAG NO
[2021-12-19 19:37] LABS: Basophils Absolute Auto 0.1 X10*3/uL (0.0-0.2); Basophils Percent Auto 0.6 % (0-2); Eosinophils Absolute Auto 0.1 X10*3/uL (0.0-0.4); Eosinophils Percent Auto 1.3 % (0-4); Hematocrit 40.3 % (37.0-47.0); Hemoglobin 13.1 g/dl (12.0-16.0); Imm Gran Abs Auto 0.03 X10*3/uL (0.00-0.03); Imm Gran Pct Auto 0.3 % (0.0-0.4); Lymphocytes Absolute Auto 2.3 X10*3/uL (1.2-4.9); Mean Corpuscular HGB Conc 32.5 g/dl (31.0-35.0); Mean Corpuscular Hemoglobin 27.9 pg (27.0-33.0); Mean Corpuscular Volume 85.7 fL (80.0-98.0); Mean Platelet Volume 10.6 fL (9.4-12.3); Monocytes Absolute Auto 0.9 X10*3/uL (0.1-1.2); Monocytes Percent Auto 10.1 % (2-11); Neutrophils Absolute Auto 5.3 x10*3/uL (2.0-8.3); Neutrophils Percent Auto 60.7 % (45-73); Platelet Count 263 X10*3/uL (160-400); Red Cell Distribution Width 13.1 % (11.0-16.0); White Blood Count 8.6 X10*3/uL (4.8-10.8)
--- NOTE | 2021-12-19 19:47 | PC.NURSE ---
Patient's R hand is visibly red, swollen, and warm. She is able to move her wrist, hand and fingers. Patient states pain radiating to the middle finger. Cap refill <2 sec.
[2021-12-19 19:51] LABS: Alanine Aminotransferase 13 U/L (0-31); Albumin Level 3.9 g/dL (3.5-5.0); Alkaline Phosphatase 80 U/L (39-117); Anion Gap 13 (12-20); Aspartate Amino Transferase 14 U/L (5-31); Bilirubin Total 0.4 mg/dL (0.0-1.0); Blood Urea Nitrogen 11 mg/dL (9-16); Calcium 9.4 mg/dL (8.4-10.2); Carbon Dioxide 32 mmol/L (22-29); Chloride 102 mmol/L (96-108); Creatinine Clr Calc Pharmacy 57.6; Estimated Glomerular Filt Rate > 60; Glucose Random 112 mg/dL (60-115); Magnesium 2.1 mg/dL (1.6-2.6); Potassium 3.6 mmol/L (3.3-5.1); Sodium 143 mmol/L (135-145); Total Protein 7.1 g/dL (6.5-8.0); Uric Acid 4.6 mg/dL (2.4-5.7)
== END 2021-12-19 20:35 | disposition home or self-care (01) ==
PROVIDERS: Physician Assistant Medical; Emergency Provider Emergency Medicine
DX: M79.641 Pain in right hand (principal); L03.113 Cellulitis of right upper limb; M19.041 Primary osteoarthritis, right hand; I10 Essential (primary) hypertension; E11.9 Type 2 diabetes mellitus without complications; E78.5 Hyperlipidemia, unspecified; F11.20 Opioid dependence, uncomplicated; Z87.891 Personal history of nicotine dependence; Z79.84 Long term (current) use of oral hypoglycemic drugs; Z79.02 Long term (current) use of antithrombotics/antiplatelets; Z79.899 Other long term (current) drug therapy
CPT/HCPCS: 36415; 73110; 73130; 80053; 83735; 84550; 85025; 85610; 93971; 99284

== ENCOUNTER 2022-02-25 10:09 | Outpatient (REF) | payer OTHER, SELFPAY ==
--- NOTE | 2022-02-25 | EMG_ITS ---
Left tibial and peroneal motor studies were performed. Left superficial peroneal and sural sensory studies were performed. Tibial H-reflex was obtained, and needle examination was performed. IMPRESSION: This study revealed left mid and lower lumbar radiculopathy. There was no evidence of generalized peripheral neuropathy. MD CECILE England/GERALD / [id number]
== END 2022-02-25 10:10 | disposition home or self-care (01) ==
LOC: HO.NEURO 10:09
PROVIDERS: Visit Provider Family Medicine
DX: G25.81 Restless legs syndrome (principal)
CPT/HCPCS: 95886; 95909

== ENCOUNTER → 2022-03-02 13:53 | Outpatient (BNVA) | payer OTHER, SELFPAY | PROVIDERS: PCP Registered Nurse; Visit Provider Nurse Practitioner Family | DX: K21.9 Gastro-esophageal reflux disease without esophagitis (principal); K58.2 Mixed irritable bowel syndrome; R14.0 Abdominal distension (gaseous) | CPT/HCPCS: 99212 ==

== ENCOUNTER 2022-04-14 11:30 | Outpatient (REF) | payer OTHER, SELFPAY | END 2022-04-14 11:31 | disposition home or self-care (01) | LOC: HO.LAB 11:30 | PROVIDERS: PCP Registered Nurse; Visit Provider Nurse Practitioner Family | DX: K20.90 Esophagitis, unspecified without bleeding (principal); K21.9 Gastro-esophageal reflux disease without esophagitis; R14.0 Abdominal distension (gaseous); R13.14 Dysphagia, pharyngoesophageal phase; Z87.891 Personal history of nicotine dependence; Z91.09 Other allergy status, other than to drugs and biological substances | CPT/HCPCS: 36415; 86003; 99212 ==

== ENCOUNTER 2022-04-22 13:34 | Outpatient (REF) | payer OTHER, SELFPAY ==
--- NOTE | 2022-04-22 10:00 | EMG_ITS ---
Bilateral median and ulnar motor and sensory studies were performed. Bilateral radial sensory studies were performed and paraspinal muscles were tested with a needle. IMPRESSION: Moderately severe bilateral median neuropathy across carpal tunnel. MD CECILE England/GERALD / [id number]
== END 2022-04-22 13:35 | disposition home or self-care (01) ==
LOC: HO.NEURO 13:34
PROVIDERS: PCP Registered Nurse; Visit Provider Registered Nurse
DX: R20.0 Anesthesia of skin (principal); R20.2 Paresthesia of skin
CPT/HCPCS: 95886; 95911

== ENCOUNTER → 2022-05-07 13:20 | Outpatient (BNVA) | payer OTHER, SELFPAY | PROVIDERS: PCP Registered Nurse; Visit Provider Internal Medicine Pulmonary Disease | DX: J45.40 Moderate persistent asthma, uncomplicated (principal); Z91.09 Other allergy status, other than to drugs and biological substances | CPT/HCPCS: 99212 ==

== ENCOUNTER 2022-05-18 14:00 | Outpatient (RCR) | payer OTHER, SELFPAY | END 2022-06-21 14:59 | disposition home or self-care (01) | LOC: HO.PT 14:00 | PROVIDERS: PCP Registered Nurse; Visit Provider Family Medicine | DX: M54.16 Radiculopathy, lumbar region (principal) | CPT/HCPCS: 97110; 97162; 97530 ==

== ENCOUNTER → 2022-06-14 11:11 | Outpatient (REF) | payer OTHER, MEDICAID, SELFPAY ==
--- NOTE | 2022-06-14 11:14 | CA_ITS ---
Transthoracic Echocardiogram Patient (Last, First, Middle): Teresa Torres A Gender: Female Date of : 1945 Age: 76 Procedure Date: 06/14/2022 Procedure Type: Transthoracic Echocardiogram Location: OP Height: 154.94 cm Weight: 77.11 kg BSA: 1.76 m2 Heart Rate: bpm BP: 130 / 76 mmHg Boilers Inspector: NICK Referring MD: Jo Blackwell MD Symptoms: NEW AF I48.92 EVAL EF R/O VALVE PATHOLOGY Study Quality: Fair ECG Rhythm: Atrial Fibrillation Conclusions: - The left ventricular systolic function is normal. The visually estimated ejection fraction is between 55-60%. - The basal inferior segment is hypokinetic. - The left atrium is moderately dilated. - There is mild mitral valve regurgitation. Findings Left Ventricle Normal left ventricular cavity size. There is normal left ventricular wall thickness. The left ventricular systolic function is normal. The visually estimated ejection fraction is between 55-60%. There is no evidence of regional wall motion abnormalities. Diastolic function is indeterminate on the basis of available data. Wall Motion Rest Echo Findings The basal inferior segment is hypokinetic. Right Ventricle Normal right ventricular cavity size and systolic function. Atria The left atrium is moderately dilated. The right atrium is mildly dilated. Aortic Valve There is a normal trileaflet aortic valve. There is no aortic valve stenosis. There is no aortic valve regurgitation. Mitral Valve There is mild mitral annular calcification. There is mild mitral valve regurgitation. There is no mitral valve stenosis. Pulmonic Valve The pulmonic valve is likely normal. Tricuspid Valve Normal tricuspid valve structure. There is mild tricuspid valve regurgitation. There is no evidence of pulmonary hypertension. Great Vessels The asc aorta is normal in size. Small plaque is seen in the sino tubular ridge. Venous The inferior vena cava is mildly dilated and collapses greater than 50% with inspiration. Pericardium/Pleural There is no evidence of pericardial effusion. Prior Study Comparison Changes noted compared to prior study dated: 05/01/2020. See comment on wall motion; increase in atrial size. Measurements 2D Linear Measurements IVSd: 0.92 0.6-0.9/0.6-1.0 cm LVIDd: 4.35 3.9-5.3/4.2-5.9 cm LVIDd Index: 2.47 2.4-3.2/2.2-3.1 cm/m2 LVIDs: 2.85 2.0-3.6 cm LVPWd: 0.96 0.7-1.1 cm LA Diam: 3.70 2.7-3.8/3.0-4.0 cm LAIDs Index: 2.10 1.5-2.3 cm/m2 LV Mass: 165.75 67-162/88-224 g LV Mass Index: 94.18 43-95/49-115 g/m2 LVOT Diam: 1.90 3.0+(-)1.3 cm 2D Systolic Function EF 4C: 55.20 >55% EF 2C: 55.30 >55% EF BiP: 53.30 >55% Mitral Valve MV Pk E: 1.35 MV Decel Time: 169.00 E'Lateral: 9.52 E'Medial: 7.64 E/E' Med: 17.70 E/E' Lat: 14.20 PHT: 49.00 MVA PHT: 4.49 Decel [place]: 8.36 Aortic Valve AoV Pk Amari: 1.53 AoV Mn Amari: 1.09 AoV VTI: 0.38 AoV Pk Grad: 9.00 Aov Mn Grad: 5.00 RAYMOND Cont.VTI: 1.60 LVOT LVOT Pk Amari: 0.85 LVOT Mn Amari: 0.60 LVOT VTI: 0.21 LVOT Pk Grad: 3.00 LVOT Mn Grad: 2.00 LVOT Diam: 1.90 LVOT Area: 2.84 Diastolic Function MV Pk E: 1.35 E'Medial: 7.64 E/E' Med: 17.70 E' Laterial: 9.52 E/E' Lat: 14.20 Right Ventricle TAPSE (mm): 17.90 TVS' Amari: 8.38 Tricuspid Valve TR Pk Amari: 2.46 TR Pk Grad: 24.00 RA Press: 8.00 RVSP: 32.00 Great Vessels Aorta Sinus of Valsalva: 3.04 2.0-3.[address] [place]: 1.92 1.7-3.4 cm Ao Asc: 3.40 2.1-3.4 cm Updated in Other Vendor System with Status of Final Laureano Brar MD electronically signed on 06/14/2022 1:17:16 PM with status of Final
== END ==
LOC: HO.CARD 11:11
PROVIDERS: PCP Registered Nurse; Visit Provider Student in an Organized Health Care Education/Training Program
DX: I48.91 Unspecified atrial fibrillation (principal)
CPT/HCPCS: 93306

== ENCOUNTER → 2022-06-16 13:18 | Outpatient (BNVA) | payer OTHER, MEDICAID, SELFPAY | PROVIDERS: PCP Registered Nurse; Visit Provider Nurse Practitioner Family | DX: R10.13 Epigastric pain (principal); R14.0 Abdominal distension (gaseous); R13.14 Dysphagia, pharyngoesophageal phase; K21.9 Gastro-esophageal reflux disease without esophagitis; Z88.9 Allergy status to unspecified drugs, medicaments and biological substances | CPT/HCPCS: 99212 ==

== ENCOUNTER → 2022-06-17 12:37 | Outpatient (BNVA) | payer OTHER, MEDICAID, SELFPAY | PROVIDERS: PCP Registered Nurse; Visit Provider Internal Medicine | DX: Z01.810 Encounter for preprocedural cardiovascular examination (principal); I48.91 Unspecified atrial fibrillation; I10 Essential (primary) hypertension; E11.9 Type 2 diabetes mellitus without complications | CPT/HCPCS: 93005; 99202 ==

== ENCOUNTER 2022-07-03 23:17 | Emergency (ER) | payer OTHER, SELFPAY ==
--- NOTE | ~2022-07-03 | XR_ITS ---
EXAMINATION: XR CHEST CLINICAL INFORMATION: Shortness of breath. COMPARISON: Chest radiograph 10/06/2019. TECHNIQUE: Frontal view of the chest was obtained. FINDINGS: Stable appearance of the cardiomediastinal silhouette. No new focal airspace opacities, pleural effusions or pneumothorax. No acute osseous findings. The visualized upper abdomen is within normal limits. XR/XR chest 1V IMPRESSION: No acute cardiopulmonary findings.
[2022-07-03 23:28] VITALS: BP 138/92; PULSE 101; O2SAT 98; BMI 25.7
--- NOTE | 2022-07-03 23:28 | ECG_ITS ---
Test Reason : SOB Blood Pressure : / mmHG Vent. Rate : 088 BPM Atrial Rate : 000 BPM P-R Int : 000 ms QRS Dur : 076 ms QT Int : 398 ms P-R-T Axes : 000 064 055 degrees QTc Int : 481 ms Artifact in tracing Atrial fibrillation with premature ventricular or aberrantly conducted complexes Abnormal ECG When compared with ECG of 02-APR-2017 15:26, Atrial fibrillation has replaced Sinus rhythm Referred By: Alpesh Bhatt Electronically Signed By:TIKI REGALADO
[2022-07-03 23:30] VITALS: BP 141/64; PULSE 95; RESP 16; TEMP 37.1; O2SAT 98
--- NOTE | 2022-07-03 23:33 | ED_ITS ---
HPI - SOB/Dyspnea General Chief Complaint: Dyspnea Stated Complaint: Difficulty Breathing Time Seen by Provider: 07/03/22 23:22 Source: patient, EMS and old records reviewed Mode of arrival: EMS Limitations: no limitations History of Present Illness HPI Narrative: 76-year-old female history of asthma, former smoker sees Dr. lazo for pulmonary/asthma, patient came in for increased coughing and shortness of breath for the past 2 days with increased difficulty breathing despite using her nebulizer at home, patient declined fever or chills. Patient is compliant with her medication. Related Data Home Medications Medication Instructions Recorded Confirmed blood sugar diagnostic #10 ea 11/23/19 06/17/22 cetirizine 10 mg tablet 10 mg PO DAILY 11/23/19 06/17/22 montelukast 10 mg tablet 10 mg PO DAILY 11/23/19 06/17/22 bisoprolol 2.5 1 tab PO DAILY 06/19/21 06/17/22 mg-hydrochlorothiazide 6.25 mg tablet levothyroxine 112 mcg tablet 112 mcg PO DAILY 06/19/21 06/17/22 (Synthroid) mirabegron 25 mg tablet,extended 25 mg PO DAILY 06/19/21 06/17/22 release 24 hr (Myrbetriq) ezetimibe 10 mg tablet 10 mg PO QAM 06/17/22 06/17/22 rivaroxaban 20 mg tablet (Xarelto) 20 mg PO QPM 06/17/22 06/17/22 sitagliptin phosphate 100 mg tablet 100 mg PO DAILY 06/17/22 06/17/22 Previous Rx's Medication Instructions Recorded walker #1 ea 02/29/20 losartan 25 mg tablet 25 mg PO DAILY 90 days #90 tabs 05/21/20 blood-glucose meter (FreeStyle #1 ea 06/19/20 Lite Meter kit) lancets 28 gauge (FreeStyle #100 ea 06/19/20 Lancets) metformin 500 mg tablet,extended 500 mg PO DAILY 90 days #90 tabs 06/19/20 release 24 hr hydrocortisone 1 % topical cream 1 appl topical BID PRN skin 09/03/20 (Anti-Itch (hydrocortisone)) irritation 14 days #28.4 grams calcium citrate 315 mg-vitamin D3 2 tab PO BID 30 days #120 tabs 12/10/20 5 mcg (200 unit) tablet (Calcium Citrate + D) ipratropium 0.5 mg-albuterol 3 mg 3 ml inhalation Q4-6H PRN wheezing 05/22/21 (2.5 mg base)/3 mL nebulization 30 days #180 mL soln rosuvastatin 10 mg tablet 10 mg PO DAILY #30 tabs 06/19/21 blood sugar diagnostic (FreeStyle #100 ea 11/12/21 Lite Strips) cholecalciferol (vitamin D3) 50 50 mcg PO DAILY 90 days #90 caps 11/27/21 mcg (2,000 unit) capsule wheat dextrin 3 gram/4 gram oral 1.5 g PO DAILY #500 grams 03/02/22 powder (Benefiber Sugar Free (dextrin)) sucralfate 100 mg/mL oral 10 ml PO BID #400 mL 04/14/22 suspension fluticasone 500 mcg-salmeterol 50 1 ea PO BID #60 ea 05/31/22 mcg/dose blistr powdr for inhalation Allergies Allergy/AdvReac Type Severity Reaction Status Date / Time aspirin [ASPIRIN] Allergy Severe ANAPHYLAXIS Verified 06/16/22 13:26 Seasonal Allergies Allergy Intermediate asthma, Verified 06/16/22 13:26 itch, rash Review of Systems Review of Systems: All other systems are reviewed and are negative Constitutional: Reports as per HPI and Reports no additional constitutional complaints Eyes: Reports as per HPI and Reports no additional eye complaints Reports system reviewed and no additional complaints, except as documented Cardiovascular: Reports as per HPI and Reports no additional cardiovascular complaints Respiratory: Reports as per HPI and Reports no additional respiratory complaints Gastrointestinal: Reports as per HPI and Reports no additional gastrointestinal complaints Genitourinary: Reports no additional female genitourinary complaints Musculoskeletal: Reports no additional musculoskeletal complaints Skin/Breast: Reports system reviewed and no additional complaints, except as docu Psychiatric: Reports no additional psychiatric complaints Endocrine: Reports no additional endocrine complaints Hematologic/Lymphatic: Reports no additional hematologic/lymphatic complaints Allergic/Immunologic: Reports no additional allergic/immunologic complaints Reports system reviewed and no additional complaints, except as documented and Reports Abnormal speech present [facility] Past Medical History Medical History Addiction, opium Arthritis Autoimmune thyroiditis Depression with anxiety Diabetes type 2, uncontrolled Dyslipidemia Essential hypertension Hypothyroidism (acquired) Obesity (BMI 30-39.9) Osteopenia Overweight (BMI 25.0-29.9) Vitamin D deficiency Surgical History History of radical hysterectomy Hx of arthroscopy of knee Hx of cataract surgery Family History Family History Father Diabetes Mother No problems noted. Son Substance use disorder Social History Social History [facility] Alcohol intake: never Patient Tobacco Use Status: Former Tobacco user e-Cigarette/Vaping Use: Never Used Second Hand Smoke Exposure: No Advance Directives: No Advance Directives Information Provided: Yes service: No Current occupational status: retired Physical Exam Vital Signs: Vital Signs: Last Vital Signs Temp 98.7 F 07/03/22 23:30 Pulse 89 07/03/22 23:48 Resp 18 07/03/22 23:48 BP 141/64 H 07/03/22 23:30 Pulse Ox 99 07/04/22 01:14 O2 Del Method Room Air 07/03/22 23:30 BMI result Body Mass Index 25.7 Vital signs have been reviewed as appeared to be correct. Blood pressure normal. Heart rate normal. Respiration rate normal. Temperature normal. Oxygen saturation normal. Appearance: Alert. Oriented X3. No acute distress. Head: Normal external exam. Normocephalic. Atraumatic. No Danielle signs noted. No raccoon eyes noted Eyes: PERRLA. EOMI. Conjunctiva and sclera normal. Eyelids normal. ENT: TM's Normal. Pharynx normal. Uvula midline. Moist mucous membranes. No trismus noted. No drooling noted. No muffled voice noted. Neck: Normal inspection. Neck supple. FROM. No adenopathy. Thyroid Normal. No meningeal signs. No neck mass noted. CVS: Normal heart rate and rhythm. Heart sound normal. No murmurs noted. Pulses normal throughout. Respiratory: No respiratory distress. Painless inspiration. Breath sounds normal. Expiratory wheezing with prolonged expiration. Chest nontender. No accessory muscle usage noted or decreased air movement noted. Abdomen: Soft and nontender. Bowel sounds normal in all 4 quadrants. No distention noted. No organomegaly noted. No visible injury noted. Back: No CVA tenderness. Full range of motion noted. Skin: Skin warm and dry. Normal skin color. Normal skin turgor. No rashes/lesions/lacerations noted. Extremities: No lower extremity edema. Extremities exhibit normal range of motion. Extremities nontender. Neuro: Oriented X 3. Cranial nerve exam: II-XII are grossly intact No motor deficit. No sensory deficit. Reflexes normal. Course Course Course Narrative: Assessment and plan. Asthma exacerbation patient feels better after bronchodilator/Solu- Medrol/magnesium given in the emergency department. Patient has a normal O2 saturation and respiratory rate, ambulating O2 sat was 99% post ambulation will discharge to follow-up with Dr. lazo. Medications Administered Generic Name Dose Route Start Last Admin Trade Name Freq PRN Reason Stop Dose Admin Magnesium Sulfate 2 gm in 50 mls @ 25 mls/hr 07/03/22 23:28 07/04/22 00:07 Magnesium Sulfate/H2o IV 07/04/22 01:27 25 mls/hr ONCE ONE Administration Discontinued Medications Generic Name Dose Route Start Last Admin Trade Name Freq PRN Reason Stop Dose Admin Albuterol Sulfate 5 mg 07/03/22 23:28 07/03/22 23:45 Albuterol Sulfate (0.083%) 2.5 Mg/3 Ml Vial.Neb INHALE 07/03/22 23:29 5 mg ONCE ONE Administration Albuterol/Ipratropium 3 ml 07/03/22 23:28 07/03/22 23:46 Albuterol/Iprat 2.5/0.5mg 3 Ml Ampul.Neb INHALE 07/03/22 23:29 3 ml ONCE ONE Administration Methylprednisolone Sodium Succinate 125 mg 07/03/22 23:28 07/04/22 00:07 Methylprednisolone Sod Succ 125 Mg/2 Ml Vial IVPUSH 07/03/22 23:29 125 mg ONCE ONE Administration Medical Decision Making Differential Diagnosis Differential Diagnoses: The differential diagnosis associated with the presentation includes (Asthma exacerbation, pneumonia, bronchitis, electrolyte abnormalities, severe anemia.) Lab Data MDM Lab Attestation statement: I reviewed the patient's lab results. 07/04/22 00:03 07/04/22 00:03 Labs: Lab Results 07/04/22 07/04/22 07/04/22 Range/Units 00:03 00:03 00:03 WBC 10.4 (4.8-10.8) X10*3/uL RBC 4.76 (4.20-5.50) X10*6/uL Hgb 13.6 (12.0-16.0) g/dl Hct 41.7 (37.0-47.0) % MCV 87.6 (80.0-98.0) fL MCH 28.6 (27.0-33.0) pg MCHC 32.6 (31.0-35.0) g/dl RDW 13.2 (11.0-16.0) % Plt Count 251 (160-400) X10*3/uL MPV 10.6 (9.4-12.3) fL Immature Gran % (Auto) 0.5 H (0.0-0.4) % Neut % (Auto) 57.2 (45-73) % Lymph % (Auto) 28.0 (20-40) % [place] % (Auto) 11.5 H (2-11) % Eos % (Auto) 2.1 (0-4) % Baso % (Auto) 0.7 (0-2) % Lymph # (Auto) 2.9 (1.2-4.9) X10*3/uL [place] # (Auto) 1.2 (0.1-1.2) X10*3/uL Eos # (Auto) 0.2 (0.0-0.4) X10*3/uL Baso # (Auto) 0.1 (0.0-0.2) X10*3/uL Abs Immat Gran (auto) 0.05 H (0.00-0.03) X10*3/uL Absolute Neuts (auto) 5.9 (2.0-8.3) x10*3/uL Absolute Nucleated RBC 0.000 (0.0-0.012) X10*3/uL Nucleated RBC % (auto) 0.0 (0.0-0.2) /100WBC Sodium 140 (135-145) mmol/L Potassium 3.6 (3.3-5.1) mmol/L Chloride 101 (96-108) mmol/L Carbon Dioxide 29 (22-29) mmol/L Anion Gap 14 (12-20) BUN 13 (9-16) mg/dL Creatinine 0.80 (0.5-1.4) mg/dL Estim Creat Clear Calc 58.4 Estimated GFR > 60 Random Glucose 121 H (60-115) mg/dL Lactic Acid 1.6 (0.5-2.0) mmol/L Calcium 9.7 (8.4-10.2) mg/dL Total Bilirubin 0.4 (0.0-1.0) mg/dL Direct Bilirubin 0.2 (0.0-0.5) mg/dL AST 18 (5-31) U/L ALT 18 (0-31) U/L Alkaline Phosphatase 74 (39-117) U/L Troponin I High Sens (<3.5-17.0) ng/L B-Natriuretic Peptide (<100) pg/mL Total Protein 7.5 (6.5-8.0) g/dL Albumin 4.2 (3.5-5.0) g/dL Lipase 26 (8-78) U/L Urine Color Urine Appearance Urine pH (5.0-9.0) Ur Specific Dierks (1.005-1.025) Urine Protein (Neg-Trace) mg/dL Urine Glucose (UA) (Negative) mg/dL Urine Ketones (Negative) mg/dL Urine Blood (Negative) Urine Nitrite (Negative) Ur Leukocyte Esterase (Negative) Influenza Type A (PCR) (Negative) Influenza Type B (PCR) (Negative) RSV RNA Qual (PCR) (Negative) SARS-CoV-2 RNA (RT-PCR) (Negative) 07/04/22 07/04/22 07/04/22 Range/Units 00:03 00:03 00:03 WBC (4.8-10.8) X10*3/uL RBC (4.20-5.50) X10*6/uL Hgb (12.0-16.0) g/dl Hct (37.0-47.0) % MCV (80.0-98.0) fL MCH (27.0-33.0) pg MCHC (31.0-35.0) g/dl RDW (11.0-16.0) % Plt Count (160-400) X10*3/uL MPV (9.4-12.3) fL Immature Gran % (Auto) (0.0-0.4) % Neut % (Auto) (45-73) % Lymph % (Auto) (20-40) % [place] % (Auto) (2-11) % Eos % (Auto) (0-4) % Baso % (Auto) (0-2) % Lymph # (Auto) (1.2-4.9) X10*3/uL [place] # (Auto) (0.1-1.2) X10*3/uL Eos # (Auto) (0.0-0.4) X10*3/uL Baso # (Auto) (0.0-0.2) X10*3/uL Abs Immat Gran (auto) (0.00-0.03) X10*3/uL Absolute Neuts (auto) (2.0-8.3) x10*3/uL Absolute Nucleated RBC (0.0-0.012) X10*3/uL Nucleated RBC % (auto) (0.0-0.2) /100WBC Sodium (135-145) mmol/L Potassium (3.3-5.1) mmol/L Chloride (96-108) mmol/L Carbon Dioxide (22-29) mmol/L Anion Gap (12-20) BUN (9-16) mg/dL Creatinine (0.5-1.4) mg/dL Estim Creat Clear Calc Estimated GFR Random Glucose (60-115) mg/dL Lactic Acid (0.5-2.0) mmol/L Calcium (8.4-10.2) mg/dL Total Bilirubin (0.0-1.0) mg/dL Direct Bilirubin (0.0-0.5) mg/dL AST (5-31) U/L ALT (0-31) U/L Alkaline Phosphatase (39-117) U/L Troponin I High Sens < 2.7 (<3.5-17.0) ng/L B-Natriuretic Peptide 153 H (<100) pg/mL Total Protein (6.5-8.0) g/dL Albumin (3.5-5.0) g/dL Lipase (8-78) U/L Urine Color Urine Appearance Urine pH (5.0-9.0) Ur Specific Dierks (1.005-1.025) Urine Protein (Neg-Trace) mg/dL Urine Glucose (UA) (Negative) mg/dL Urine Ketones (Negative) mg/dL Urine Blood (Negative) Urine Nitrite (Negative) Ur Leukocyte Esterase (Negative) Influenza Type A (PCR) NEGATIVE (Negative) Influenza Type B (PCR) NEGATIVE (Negative) RSV RNA Qual (PCR) NEGATIVE (Negative) SARS-CoV-2 RNA (RT-PCR) NEGATIVE (Negative) 07/04/22 Range/Units 00:13 WBC (4.8-10.8) X10*3/uL RBC (4.20-5.50) X10*6/uL Hgb (12.0-16.0) g/dl Hct (37.0-47.0) % MCV (80.0-98.0) fL MCH (27.0-33.0) pg MCHC (31.0-35.0) g/dl RDW (11.0-16.0) % Plt Count (160-400) X10*3/uL MPV (9.4-12.3) fL Immature Gran % (Auto) (0.0-0.4) % Neut % (Auto) (45-73) % Lymph % (Auto) (20-40) % [place] % (Auto) (2-11) % Eos % (Auto) (0-4) % Baso % (Auto) (0-2) % Lymph # (Auto) (1.2-4.9) X10*3/uL [place] # (Auto) (0.1-1.2) X10*3/uL Eos # (Auto) (0.0-0.4) X10*3/uL Baso # (Auto) (0.0-0.2) X10*3/uL Abs Immat Gran (auto) (0.00-0.03) X10*3/uL Absolute Neuts (auto) (2.0-8.3) x10*3/uL Absolute Nucleated RBC (0.0-0.012) X10*3/uL Nucleated RBC % (auto) (0.0-0.2) /100WBC Sodium (135-145) mmol/L Potassium (3.3-5.1) mmol/L Chloride (96-108) mmol/L Carbon Dioxide (22-29) mmol/L Anion Gap (12-20) BUN (9-16) mg/dL Creatinine (0.5-1.4) mg/dL Estim Creat Clear Calc Estimated GFR Random Glucose (60-115) mg/dL Lactic Acid (0.5-2.0) mmol/L Calcium (8.4-10.2) mg/dL Total Bilirubin (0.0-1.0) mg/dL Direct Bilirubin (0.0-0.5) mg/dL AST (5-31) U/L ALT (0-31) U/L Alkaline Phosphatase (39-117) U/L Troponin I High Sens (<3.5-17.0) ng/L B-Natriuretic Peptide (<100) pg/mL Total Protein (6.5-8.0) g/dL Albumin (3.5-5.0) g/dL Lipase (8-78) U/L Urine Color Yellow Urine Appearance Cloudy Urine pH 6.0 (5.0-9.0) Ur Specific Dierks <= 1.005 (1.005-1.025) Urine Protein Negative (Neg-Trace) mg/dL Urine Glucose (UA) Negative (Negative) mg/dL Urine Ketones Negative (Negative) mg/dL Urine Blood Negative (Negative) Urine Nitrite Negative (Negative) Ur Leukocyte Esterase Negative (Negative) Influenza Type A (PCR) (Negative) Influenza Type B (PCR) (Negative) RSV RNA Qual (PCR) (Negative) SARS-CoV-2 RNA (RT-PCR) (Negative) Independent Interpretation I performed an independent interpretation of an: Plain X-Ray (No acute intrathoracic pathology.) Radiology Impression Discussion of test interpretation with radiology: I have reviewed the radiologist's reading. Discharge Plan Discharge Clinical Impression: Asthma exacerbation Patient Disposition: Home, Self-Care Instructions: Asthma (ED) Prescriptions: No Action losartan 25 mg tablet 25 mg PO DAILY 90 Days Qty: 90 2RF (DME) blood-glucose meter [FreeStyle Lite Meter] Kit See Rx Instructions miscellaneous .MEDSUPPLY Qty: 1 0RF Rx Instructions: 3 times a day (DME) lancets [FreeStyle Lancets] 28 gauge misc See Rx Instructions .MEDSUPPLY Qty: 100 8RF Rx Instructions: Twice a day hydrocortisone [Anti-Itch (HC)] 1 % cream 1 appl topical BID PRN (Reason: skin irritation) 14 Days Qty: 28.4 0RF calcium citrate-vitamin D3 [Calcium Citrate + D] 315 mg-5 mcg (200 unit) tablet 2 tab PO BID 30 Days Qty: 120 4RF ipratropium-albuterol 0.5 mg-3 mg(2.5 mg base)/3 mL solution for nebulization 3 ml inhalation Q4-6H PRN (Reason: wheezing) 30 Days Qty: 180 6RF (DME) FreeStyle Lite Strips Strip See Rx Instructions .MEDSUPPLY Qty: 100 6RF Rx Instructions: 2 times a day fluticasone propion-salmeterol 500-50 mcg/dose blister with device 1 ea PO BID Qty: 60 6RF metformin 500 mg tablet extended release 24 hr 500 mg PO DAILY 90 Days Qty: 90 1RF (DME) walker Misc See Rx Instructions .MEDSUPPLY Qty: 1 0RF Rx Instructions: Walker without wheels montelukast 10 mg tablet 10 mg PO DAILY cetirizine 10 mg tablet 10 mg PO DAILY (DME) OneTouch Ultra Blue Test Strip Strip See Rx Instructions Not Applicable BID Qty: 10 Rx Instructions: As directed bisoprolol-hydrochlorothiazide 2.5-6.25 mg tablet 1 tab PO DAILY Myrbetriq 25 mg tablet extended release 24 hr 25 mg PO DAILY levothyroxine [Synthroid] 112 mcg tablet 112 mcg PO DAILY rosuvastatin 10 mg tablet 10 mg PO DAILY Qty: 30 6RF cholecalciferol (vitamin D3) 50 mcg (2,000 unit) capsule 50 mcg PO DAILY 90 Days Qty: 90 2RF Benefiber Sugar Free (dextrin) 3 gram/4 gram powder 1.5 g PO DAILY Qty: 500 0RF Rx Instructions: mix into at least 4 oz water or juice before administering sucralfate 100 mg/mL suspension 10 ml PO BID Qty: 400 3RF Rx Instructions: Please take it at noon time and at bedtime sitagliptin phosphate 100 mg tablet 100 mg PO DAILY ezetimibe 10 mg tablet 10 mg PO QAM Xarelto 20 mg tablet 20 mg PO QPM Referrals: Carlos Alberto Lazo MD [Physician] -
[2022-07-03] MEDS: Albuterol Sulfate (0.083%) 2.5 MG/3 ML VIAL.NEB 5 MG INHALE (23:45)
[2022-07-03] MEDS: Albuterol/Iprat 2.5/0.5MG 3 ML AMPUL.NEB INHALE (23:46)
[2022-07-03 23:48] VITALS: PULSE 89; RESP 18; O2SAT 98
[2022-07-04] MEDS: methylPREDNISolone Sod Succ 125 MG/2 ML VIAL IVPUSH (00:07)
[2022-07-04] MEDS: Magnesium Sulfate/H2O 2 GM/50 ML PIGGYBACK IV (00:07)
[2022-07-04 00:11] LABS: MANUAL DIFF FLAG NO
[2022-07-04 00:13] LABS: Basophils Absolute Auto 0.1 X10*3/uL (0.0-0.2); Basophils Percent Auto 0.7 % (0-2); Eosinophils Absolute Auto 0.2 X10*3/uL (0.0-0.4); Eosinophils Percent Auto 2.1 % (0-4); Hematocrit 41.7 % (37.0-47.0); Hemoglobin 13.6 g/dl (12.0-16.0); Imm Gran Abs Auto 0.05 X10*3/uL (0.00-0.03); Imm Gran Pct Auto 0.5 % (0.0-0.4); Lymphocytes Absolute Auto 2.9 X10*3/uL (1.2-4.9); Mean Corpuscular HGB Conc 32.6 g/dl (31.0-35.0); Mean Corpuscular Hemoglobin 28.6 pg (27.0-33.0); Mean Corpuscular Volume 87.6 fL (80.0-98.0); Mean Platelet Volume 10.6 fL (9.4-12.3); Monocytes Absolute Auto 1.2 X10*3/uL (0.1-1.2); Monocytes Percent Auto 11.5 % (2-11); Neutrophils Absolute Auto 5.9 x10*3/uL (2.0-8.3); Neutrophils Percent Auto 57.2 % (45-73); Platelet Count 251 X10*3/uL (160-400); Red Blood Count 4.76 X10*6/uL (4.20-5.50); Red Cell Distribution Width 13.2 % (11.0-16.0); White Blood Count 10.4 X10*3/uL (4.8-10.8)
[2022-07-04 00:21] LABS: Appearance Urine Cloudy; Color Urine Yellow; Glucose Urine UA Negative (Negative); Leukocyte Esterase Urine Negative (Negative); Nitrite Urine Negative (Negative); Specific Gravity - Urine <= 1.005 (1.005-1.025); Urine Blood Negative (Negative); Urine Ketones Negative (Negative); Urine Protein Negative (Neg-Trace)
[2022-07-04 00:24] LABS: Lactic Acid 1.6 mmol/L (0.5-2.0)
[2022-07-04 00:30] LABS: Alanine Aminotransferase 18 U/L (0-31); Albumin Level 4.2 g/dL (3.5-5.0); Alkaline Phosphatase 74 U/L (39-117); Anion Gap 14 (12-20); Aspartate Amino Transferase 18 U/L (5-31); Bilirubin Direct 0.2 mg/dL (0.0-0.5); Bilirubin Total 0.4 mg/dL (0.0-1.0); Blood Urea Nitrogen 13 mg/dL (9-16); Calcium 9.7 mg/dL (8.4-10.2); Carbon Dioxide 29 mmol/L (22-29); Chloride 101 mmol/L (96-108); Creatinine Clr Calc Pharmacy 58.4; Estimated Glomerular Filt Rate > 60; Glucose Random 121 mg/dL (60-115); Lipase 26 U/L (8-78); Potassium 3.6 mmol/L (3.3-5.1); Sodium 140 mmol/L (135-145); Total Protein 7.5 g/dL (6.5-8.0)
[2022-07-04 00:35] LABS: B Type Natriuretic Peptide 153 pg/mL (<100)
[2022-07-04 00:37] LABS: Troponin-I High Sensitivity < 2.7 ng/L (<3.5-17.0)
[2022-07-04 01:03] LABS: Influenza A PCR NEGATIVE (Negative); Influenza B PCR NEGATIVE (Negative); Resp Syncy Virus RNA Qual PCR NEGATIVE (Negative); SARS COV2 PCR INHOUSE NEGATIVE (Negative)
[2022-07-04 01:14] VITALS: O2SAT 99
--- NOTE | 2022-07-04 01:14 | PC.NURSE ---
Pt ambulated 30 feet and able to maintain o2 sat at 99% RA. aware.
== END 2022-07-04 01:47 | disposition home or self-care (01) ==
PROVIDERS: Emergency Provider Emergency Medicine; PCP Registered Nurse
DX: J45.901 Unspecified asthma with (acute) exacerbation (principal); R06.02 Shortness of breath; I48.91 Unspecified atrial fibrillation; R05.9 Cough, unspecified; Z20.822 Contact with and (suspected) exposure to COVID-19; Z20.828 Contact with and (suspected) exposure to other viral communicable diseases; Z79.899 Other long term (current) drug therapy
CPT/HCPCS: 0241U; 71045; 80048; 80076; 81003; 83605; 83690; 83880; 84484; 85025; 87040; 93005; 94640; 96365; 96366; 96375; 99285; J2930; J3475

== ENCOUNTER → 2022-07-09 13:32 | Outpatient (BNVA) | payer OTHER, SELFPAY | PROVIDERS: PCP Registered Nurse; Visit Provider Internal Medicine Pulmonary Disease | DX: J45.40 Moderate persistent asthma, uncomplicated (principal); R06.01 Orthopnea; Z91.09 Other allergy status, other than to drugs and biological substances | CPT/HCPCS: 99212 ==

== ENCOUNTER → 2022-07-12 10:01 | Outpatient (REF) | payer OTHER, SELFPAY ==
--- NOTE | ~2022-07-12 | NM_ITS ---
Myocardial perfusion study Indication: Preoperative cardiovascular risk stratification 2 evaluate for myocardial ischemia Technique: The patient was brought in for a Lexiscan perfusion study on 07/12/2022. Patient performed low-level exercise and was injected 0.4 mg of Lexiscan intravenously. Within a minute of injection, 25 mCi of sestamibi was given intravenously. Images were obtained using the SPECT gamma camera interlaced with the gating device. Images were obtained in supine position. Resting perfusion study was performed on 07/13/2022. Patient was administered 25 mCi of sestamibi intravenously at rest. Images were then obtained in supine position. Images obtained with and without CT attenuation. Total DLP 149 mGy-cm. Images were processed with the software and compared side to side in short axis, horizontal long axis and vertical long axis views. Findings: The stress perfusion study showed non attenuated images show moderately reduced uptake in the apical portion of the lateral wall and moderately reduced uptake in the remainder of the lateral wall of the LV myocardium including reduced uptake in the apex of the LV myocardium. Attenuation corrected images show normal uptake of tracer in all segments of LV myocardium which may represent overcorrection. The gated study shows normal LV systolic function with calculated LVEF of 63%. LV cavity is normal in size. The gated study shows normal systolic wall thickening and contraction of segments. Resting study shows non attenuated images show normalized uptake in the lateral and apical wall of the LV myocardium. Attenuation corrected shows normal uptake of radiotracer in all segments of LV myocardium. Gating at rest reveals normal systolic wall motion with ejection fraction at 63%. The findings are consistent with lateral and apical ischemia attenuated images. Attenuated corrected the. NM/NM cardiolite stress test Impression: 1. Myocardial perfusion imaging study shows lateral and apical ischemia 2. Gated LVEF is 63% 3. Transient ischemic dilatation not present EKG is nondiagnostic for ischemia
--- NOTE | 2022-07-12 10:05 | CA_ITS ---
Acquisition Time: 2022-07-12 10:33:21 Total Exercise Time: 00:02:00 Test Indications: AFIB, SOB, PREOP Medications: SEE H Protocol: LEXISCAN Max HR: 129 BPM 88% of Pred: 146 BPM Max BP: 124/064 mmHG Max Work Load: 1.0 METS Pharmacological stress test with Lexiscan injection, while sitting, without anginal symptoms, with isolated PVCs, with normotensive response to injectiion, with nondiagnostic EKG for ischemia. Nuclear images pending. Test reviewed with Dr Nails. Referred By: Laureano Brar Overread By: GEORGE CALDWELL
== END ==
LOC: HO.CARD 10:01
PROVIDERS: Visit Provider Internal Medicine
DX: Z01.810 Encounter for preprocedural cardiovascular examination (principal)
CPT/HCPCS: 78452; 93017; A9500; J0280; J2785

== ENCOUNTER 2022-07-24 05:29 | Inpatient (IN) | payer OTHER, SELFPAY ==
[2022-07-24] VITALS (14 sets, daily range): BP systolic 96–182; BP diastolic 45–100; PULSE 88–130; RESP 12–29; TEMP 36.4–39.3; O2SAT 91–98; BMI 31.8
--- NOTE | ~2022-07-24 | CT_ITS ---
EXAMINATION: CT HEAD WITHOUT CONTRAST CLINICAL INFORMATION: Encephalopathy, confusion. COMPARISON: None available. TECHNIQUE: Contiguous axial imaging was performed from the skull base to vertex without intravenous administration of contrast. This CT examination was performed using dose optimization techniques as appropriate, variously including the following: *Automated exposure control *Adjustment of mA and/or kV according to patient size (this includes techniques or standardized protocols for targeted exams where dose is matched to indication/reason for exam; i.e. extremities or head) *Use of iterative reconstruction technique DLP: 1650 mGy-cm FINDINGS: There is artifact along the frontal head limiting evaluation. There is no acute intra-axial, extra-axial bleed, masses or midline shift. There is no acute infarction in evolution. The nichols to white matter differentiation is maintained. The lateral ventricles are symmetrical in size and configuration without enlargement. Bone windows reveal no calvarial abnormality. Bilateral paranasal sinuses and mastoid air cells are well-aerated. CT/CT head/brain wo IV con IMPRESSION: No acute intracranial process seen.
--- NOTE | ~2022-07-24 | XR_ITS ---
EXAMINATION: XR CHEST CLINICAL INFORMATION: Cough and shortness of breath COMPARISON: 07/03/2022 TECHNIQUE: Frontal view of the chest was obtained. FINDINGS: Normal symmetric lung volumes. No parenchymal consolidation. No pleural effusion. No pneumothorax. Cardiomediastinal silhouette and pulmonary vascularity are within normal limits. Aorta is atherosclerotic. No acute osseous abnormalities. XR/XR chest 1V IMPRESSION: No acute findings.
--- NOTE | ~2022-07-24 | MR_ITS ---
LIMITED INCOMPLETE NONCONTRAST MRI OF THE BRAIN INDICATION: Cognitive decline. TECHNIQUE: Only sagittal T1, axial T2 FLAIR, and axial diffusion weighted imaging obtained. Patient could not hold still for the examination which was terminated. MR/MR head/brain wo con FINDINGS AND IMPRESSION: There is no hydrocephalus or midline shift of structures. No diffusion signal abnormality is identified. No significant white matter signal changes evident, though axial T2 FLAIR-weighted imaging is fairly motion degraded. The craniovertebral junction and marrow signal are normal.
--- NOTE | ~2022-07-24 | CT_ITS ---
EXAMINATION: CT ABDOMEN AND PELVIS WITHOUT CONTRAST CLINICAL INFORMATION: Encephalopathy and fever of unknown origin. COMPARISON: None available. TECHNIQUE: Multidetector volumetric imaging was performed from the superior aspect of the liver through the pubic symphysis. Sagittal and coronal reformatted images were obtained on the technologist's workstation. This CT examination was performed using dose optimization techniques as appropriate, variously including the following: *Automated exposure control *Adjustment of mA and/or kV according to patient size (this includes techniques or standardized protocols for targeted exams where dose is matched to indication/reason for exam; i.e. extremities or head) *Use of iterative reconstruction technique DLP: 1650 mGy-cm FINDINGS: LUNG BASES: There is left basilar atelectasis and/or scarring. The heart size is normal. LIVER, GALLBLADDER, AND BILIARY TREE: The liver is normal in size, shape, and diffusely hypoattenuated. No focal hepatic lesion or biliary ductal dilatation is present. The gallbladder is unremarkable with no evidence of radiopaque gallstones, gallbladder wall thickening, or obvious pericholecystic inflammatory changes. PANCREAS: Unremarkable. SPLEEN: Unremarkable. ADRENAL GLANDS: Unremarkable. KIDNEYS AND URETERS: The kidneys are normal in size, shape, and attenuation. No hydronephrosis, hydroureter, or calculi seen. No perinephric stranding. BLADDER: The bladder is distended without any radiopaque calculi. GASTROINTESTINAL TRACT: The small and large bowel are unremarkable. The appendix is unremarkable. ABDOMINAL WALL: No significant hernia is appreciated. LYMPH NODES: Normal. VASCULAR: There is arthroscopic calcification of abdominal aorta without aneurysmal dilatation. PELVIC VISCERA: The uterus is not visualized likely surgically absent or atrophied.. OSSEOUS STRUCTURES: Bilateral L4, L5-S1 pedicle screws with interconnecting rods for fusion of L4-L5/S1 disc levels. No aggressive lytic or sclerotic process seen. There is moderate ventral spondylosis lower thoracic and upper lumbar ventral spine. CT/CT abdomen pelvis wo IV con IMPRESSION: Diffuse hepatic steatosis without focal lesion. Left basilar atelectasis and/or scarring No acute intra-abdominal process seen. Fleischner guidelines were followed.
--- NOTE | ~2022-07-24 | FL_ITS ---
EXAMINATION: XR LUMBAR PUNCTURE CLINICAL INFORMATION: Fever. Encephalopathy. COMPARISON: None available. TECHNIQUE: Procedure and risks and benefits including bleeding, infection and headache were discussed with the patient and informed consent was obtained. Patient was positioned in the prone position. The back was prepped and draped in the usual sterile fashion. The skin and soft tissues were anesthetized with 1% lidocaine plain. Using fluoroscopic guidance and a 22-gauge spinal needle, left interlaminar access the spinal canal at the L2-L3 level was obtained. Opening pressure was 9 cm of water. 8.5 mL of slightly pink clear fluid was removed and sent for diagnostic specimen requested by the ordering physician. Fluoroscopy time 0.1 minutes. 2 saved fluoroscopic images. DAP 1.3 nichols per centimeter squared. Total dose 1 mgy. Conscious sedation was provided by registered nurse under my direct supervision with continuous hemodynamic monitoring. The patient received Versed 0.5 mg and fentanyl 25 mcg IV during the procedure. Total sedation time was 23 minutes. FINDINGS: Postsurgical change to the lower lumbar spine. FLUOROSCOPY TIME: 0.1 minute DOSE AREA PRODUCT: 1.3 nichols per centimeter squared FL/FL guided lumbar puncture LP IMPRESSION: Fluoroscopy-guided lumbar puncture.
--- NOTE | 2022-07-24 05:52 | ECG_ITS ---
Test Reason : TACHYCARDIA Blood Pressure : / mmHG Vent. Rate : 122 BPM Atrial Rate : 000 BPM P-R Int : 000 ms QRS Dur : 070 ms QT Int : 314 ms P-R-T Axes : 000 060 067 degrees QTc Int : 447 ms Atrial fibrillation with rapid ventricular response Abnormal ECG When compared with ECG of 03-JUL-2022 23:37, Vent. rate has increased Referred By: Generic ED Physician Electronically Signed By:LETTY ASIF MD
[2022-07-24 06:43] LABS: Basophils Absolute Auto 0.1 X10*3/uL (0.0-0.2); Basophils Percent Auto 0.6 % (0-2); Eosinophils Absolute Auto 0.1 X10*3/uL (0.0-0.4); Eosinophils Percent Auto 0.8 % (0-4); Hematocrit 36.9 % (37.0-47.0); Hemoglobin 12.5 g/dl (12.0-16.0); Imm Gran Abs Auto 0.03 X10*3/uL (0.00-0.03); Imm Gran Pct Auto 0.3 % (0.0-0.4); Lymphocytes Absolute Auto 1.5 X10*3/uL (1.2-4.9); MANUAL DIFF FLAG NO; Mean Corpuscular HGB Conc 33.9 g/dl (31.0-35.0); Mean Corpuscular Hemoglobin 28.9 pg (27.0-33.0); Mean Corpuscular Volume 85.2 fL (80.0-98.0); Mean Platelet Volume 10.4 fL (9.4-12.3); Monocytes Percent Auto 9.4 % (2-11); Neutrophils Absolute Auto 7.5 x10*3/uL (2.0-8.3); Neutrophils Percent Auto 73.9 % (45-73); Platelet Count 218 X10*3/uL (160-400); Red Blood Count 4.33 X10*6/uL (4.20-5.50); Red Cell Distribution Width 13.6 % (11.0-16.0); White Blood Count 10.1 X10*3/uL (4.8-10.8)
[2022-07-24 06:56] LABS: Alanine Aminotransferase 20 U/L (0-31); Albumin Level 3.8 g/dL (3.5-5.0); Alkaline Phosphatase 57 U/L (39-117); Anion Gap 13 (12-20); Aspartate Amino Transferase 19 U/L (5-31); Bilirubin Total 1.9 mg/dL (0.0-1.0); Blood Urea Nitrogen 13 mg/dL (9-16); Calcium 9.3 mg/dL (8.4-10.2); Carbon Dioxide 25 mmol/L (22-29); Chloride 100 mmol/L (96-108); Creatinine Clr Calc Pharmacy 62.3; Estimated Glomerular Filt Rate > 60; Glucose Random 150 mg/dL (60-115); Potassium 3.8 mmol/L (3.3-5.1); Sodium 134 mmol/L (135-145); Total Protein 7.1 g/dL (6.5-8.0)
[2022-07-24 06:58] LABS: IDNOW Serial# 08D9AD1C; Influenza A Negative (Negative); Influenza B2 Negative (Negative)
--- NOTE | 2022-07-24 07:49 | ED.GENADULT ---
HPI - General Adult General Chief complaint: General Medical Stated complaint: WEAK,BODY PAIN,SEEN FOR SAME RECENTLY PER EMS Time Seen by Provider: 07/24/22 07:03 Source: patient Mode of arrival: EMS Limitations: no limitations History of Present Illness HPI narrative: 76 year old with history significant for a-fib on xarelto, asthma, restless leg syndrome presents today via EMS with multiple somatic complaints including intermittent headache, shortness of breath, nausea, generalized weakness, and malaise x2 weeks. She was seen by her PCP one week ago and diagnosed with an arrhythmia . States her headache came on gradually and has been intermittent for 2 weeks. Denies fever, chest pain, palpitations, LE swelling. Related Data Home Medications Medication Instructions Recorded Confirmed blood sugar diagnostic #10 ea 11/23/19 06/17/22 montelukast 10 mg tablet 10 mg PO BEDTIME 11/23/19 07/24/22 bisoprolol 2.5 1 tab PO DAILY 06/19/21 07/24/22 mg-hydrochlorothiazide 6.25 mg tablet ezetimibe 10 mg tablet 10 mg PO DAILY 06/17/22 07/24/22 rivaroxaban 20 mg tablet (Xarelto) 20 mg PO DAILY@1800 06/17/22 07/24/22 sitagliptin phosphate 100 mg tablet 100 mg PO DAILY 06/17/22 07/24/22 albuterol sulfate 90 mcg/actuation 2 puff inhalation Q4-6H PRN dyspnea 07/24/22 07/24/22 aerosol inhaler (Ventolin HFA) calcium citrate 315 mg-vitamin D3 2 tab PO DAILY 07/24/22 07/24/22 5 mcg (200 unit) tablet (Calcium Citrate + D) clonazepam 0.125 mg disintegrating 0.125 - 0.25 mg PO BEDTIME PRN 07/24/22 07/24/22 tablet Restless Leg(S) fluticasone 500 mcg-salmeterol 50 1 ea PO DAILY 07/24/22 07/24/22 mcg/dose blistr powdr for inhalation furosemide 20 mg tablet 20 mg PO DAILY 07/24/22 07/24/22 gabapentin 300 mg capsule 300 mg PO BID 07/24/22 07/24/22 levothyroxine 137 mcg tablet 137 mcg PO DAILY@0600 07/24/22 07/24/22 losartan 25 mg tablet 25 mg PO BEDTIME 07/24/22 07/24/22 metformin 500 mg tablet,extended 500 mg PO DAILY@1800 07/24/22 07/24/22 release 24 hr omeprazole 20 mg capsule,delayed 20 mg PO DAILY@0630 07/24/22 07/24/22 release rosuvastatin 5 mg tablet 5 mg PO BEDTIME 07/24/22 07/24/22 sucralfate 100 mg/mL oral 10 ml PO BID@1200,2100 PRN GERD 07/24/22 07/24/22 suspension tramadol 50 mg tablet 50 mg PO Q12H PRN severe pain 07/24/22 07/24/22 Previous Rx's Medication Instructions Recorded walker #1 ea 02/29/20 blood-glucose meter (FreeStyle #1 ea 06/19/20 Lite Meter kit) lancets 28 gauge (FreeStyle #100 ea 06/19/20 Lancets) blood sugar diagnostic (FreeStyle #100 ea 11/12/21 Lite Strips) cholecalciferol (vitamin D3) 50 50 mcg PO DAILY 90 days #90 caps 11/27/21 mcg (2,000 unit) capsule Allergies Allergy/AdvReac Type Severity Reaction Status Date / Time aspirin [ASPIRIN] Allergy Severe ANAPHYLAXIS Verified 07/09/22 13:37 Seasonal Allergies Allergy Intermediate asthma, Verified 07/09/22 13:37 itch, rash Review of Systems Review of Systems: Yes all other systems are reviewed and are negative Constitutional: Constitutional: Reports headache(s) and Reports weakness ENT: Reports headache(s) Cardiovascular: Cardiovascular: Denies chest pain and Reports dyspnea Respiratory: Respiratory: Reports dyspnea Neurologic: Reports headache(s) and Reports weakness [facility] Past Medical History Attestation statement: The following information was validated with the patient. [facility] Narrative: atrial fibrilation on anticoagulation with xarelto Medical History Addiction, opium Arthritis Autoimmune thyroiditis Depression with anxiety Diabetes type 2, uncontrolled Dyslipidemia Essential hypertension Hypothyroidism (acquired) Obesity (BMI 30-39.9) Osteopenia Overweight (BMI 25.0-29.9) Vitamin D deficiency Surgical History History of radical hysterectomy Hx of arthroscopy of knee Hx of cataract surgery Family History Family History Father Diabetes Mother No problems noted. Son Substance use disorder Social History Social History Housing: Condominium Alcohol intake: never Patient Tobacco Use Status: Former Tobacco user Smoked in Last 30 Days: No e-Cigarette/Vaping Use: Never Used Second Hand Smoke Exposure: No Use of substances other than those prescribed or required for medical reasons: No Advance Directives: No Advance Directives Information Provided: Yes Nutrition Risks: No Nutritional Risk service: No Current occupational status: retired Physical Exam ED Vital Signs: Vital Signs - 24 hr 07/24/22 05:41 07/24/22 06:42 07/24/22 07:50 Temperature 98.3 F 98.4 F 98.5 F Pulse Rate 118 H 88 111 H Respiratory Rate 18 12 23 H Blood Pressure 145/45 H 135/88 146/79 H Pulse Oximetry 93 98 95 Oxygen Delivery Method Room Air Room Air Room Air 07/24/22 08:00 07/24/22 09:45 07/24/22 12:18 Temperature Pulse Rate 129 H 106 H 94 Respiratory Rate 18 25 H 29 H Blood Pressure 170/94 H 122/82 96/78 Pulse Oximetry 91 L 92 95 Oxygen Delivery Method Room Air Room Air Room Air BMI result Body Mass Index 31.8 Const General: cooperative, no acute distress, alert, awake, anxious, lethargic and tired appearing Nutritional Appearance: well nourished Orientation/consciousness: patient oriented x3 and lethargic Limitations: no limitations Chest Chest palpation & inspection: normal inspection of the chest Cardio Jugular venous distension: JVD elevated Rate: tachycardic Rhythm: abnormal rhythm irregularly irregular Heart sounds: S1 normal heart sound present, S2 normal heart sound present, no gallops, no murmurs and no rubs Peripheral pulses: Peripheral pulses 2+ throughout GI Inspection: Yes normal to inspection Palpation (GI): Soft to palpation, not firm, nontender and no guarding Rectal Exam - Female: deferred Neuro General: patient oriented x3 Extrem General: Yes normal to inspection and No no pedal edema Course Reevaluation(s) Reevaluation #1: Rate now 149bpm, afib. Will initiate Cardizem. Time: 08:04 Reevaluation #2: Still tachycardic, tachypneic in the 30's. Will administer lasix. Anticipate admission. Time: 08:40 Reevaluation #3: Discussed with Dr Zavala. Will admit to telemetry. Time: 08:49 Additional Reevaluation(s): 0942: performed bedside ECHO which showed no pericardial effusion and good wall motion Medications Administered Generic Name Dose Route Start Last Admin Trade Name Freq PRN Reason Stop Dose Admin Ezetimibe 10 mg 07/24/22 13:00 07/24/22 13:50 Ezetimibe 10 Mg Tablet PO 10 mg DAILY RAMESH Administration Gabapentin 300 mg 07/24/22 13:00 07/24/22 13:51 Gabapentin 300 Mg Capsule PO 300 mg BID RAMESH Administration Diltiazem HCl 125 mg/ Sodium 125 mls @ 0 mls/hr 07/24/22 08:15 07/24/22 08:16 Chloride IVCONT 10 mg/hr .Q0M RAMESH 10 mls/hr Administration Protocol Per Protocol Omeprazole 20 mg 07/24/22 13:00 07/24/22 13:52 Omeprazole 20 Mg Capsule. PO 20 mg DAILY@0630 RAMESH Administration Sitagliptin Phosphate 100 mg 07/24/22 13:00 07/24/22 13:50 Sitagliptin Phosphate 100 Mg Tablet PO 100 mg DAILY RAMESH Administration Sodium Chloride 3 ml 07/24/22 16:00 07/24/22 15:44 0.9 % Sodium Chloride Flush 3 Ml Syringe IVFLUSH Not Given QSHIFT RAMESH Vitamin D 50 mcg 07/24/22 13:00 07/24/22 13:50 Cholecalciferol (Vitamin D3) 25 Mcg Tablet PO 50 mcg DAILY RAMESH Administration Discontinued Medications Generic Name Dose Route Start Last Admin Trade Name Freq PRN Reason Stop Dose Admin Clonazepam 0.5 mg 07/24/22 07:28 07/24/22 08:15 Clonazepam 0.5 Mg Tablet PO 07/24/22 07:29 0.5 mg ONCE ONE Administration Clonazepam 0.5 mg 07/24/22 08:42 07/24/22 09:43 Clonazepam 0.5 Mg Tablet PO 07/24/22 08:43 0.5 mg ONCE ONE Administration Diltiazem HCl 15 mg 07/24/22 08:04 07/24/22 08:16 Diltiazem Hcl 50 Mg/10 Ml Vial IVPUSH 07/24/22 08:05 15 mg STAT STA Administration Furosemide 40 mg 07/24/22 08:39 07/24/22 09:38 Furosemide 40 Mg/4 Ml Vial IVPUSH 07/24/22 08:40 40 mg ONCE ONE Administration Protocol Metoclopramide HCl 10 mg 07/24/22 07:28 07/24/22 08:15 Metoclopramide Hcl 10 Mg/2 Ml Vial IVPUSH 07/24/22 07:29 10 mg ONCE ONE Administration Ropinirole HCl 0.5 mg 07/24/22 13:15 07/24/22 13:49 Ropinirole Hcl 0.5 Mg Tablet PO 07/24/22 13:16 0.5 mg ONCE ONE Administration Medical Decision Making Medical Decision Making [facility] Narrative: 76 year old female presenting with multiple somatic complaints including headache, shortness of breath, nausea, and generalized weakness. Patients exam is significant for elevated JVP and irregularly irregular rhythm. No peripheral edema. Suspect fluid overload, CHF. Plan: obtain labs, CXR, BNP, troponin Differential Diagnosis Differential Diagnoses: The differential diagnosis associated with the presentation includes Low suspicion for PE as patient is currently on AC and symptoms >2 weeks. Consider PNA however no fever, no white count. Consider pnuemothorax however cxr normal, lungs CTA b/l. High suspicion for fluid overload, CHF. Will wait on BNP and tropnonins to return. Admission/Observation Consideration of admission/observation: Escalation of care including admission/observation considered Consult Healthcare Provider Management of the patient was discussed with: Hospitalist Lab Data [facility] Lab Attestation statement: I reviewed the patient's lab results. 07/24/22 06:37 07/24/22 06:37 Labs: Lab Results 07/24/22 07/24/22 07/24/22 Range/Units 06:37 06:37 06:37 WBC 10.1 (4.8-10.8) X10*3/uL RBC 4.33 (4.20-5.50) X10*6/uL Hgb 12.5 (12.0-16.0) g/dl Hct 36.9 L (37.0-47.0) % MCV 85.2 (80.0-98.0) fL MCH 28.9 (27.0-33.0) pg MCHC 33.9 (31.0-35.0) g/dl RDW 13.6 (11.0-16.0) % Plt Count 218 (160-400) X10*3/uL MPV 10.4 (9.4-12.3) fL Immature Gran % (Auto) 0.3 (0.0-0.4) % Neut % (Auto) 73.9 H (45-73) % Lymph % (Auto) 15.0 L (20-40) % [place] % (Auto) 9.4 (2-11) % Eos % (Auto) 0.8 (0-4) % Baso % (Auto) 0.6 (0-2) % Lymph # (Auto) 1.5 (1.2-4.9) X10*3/uL [place] # (Auto) 1.0 (0.1-1.2) X10*3/uL Eos # (Auto) 0.1 (0.0-0.4) X10*3/uL Baso # (Auto) 0.1 (0.0-0.2) X10*3/uL Abs Immat Gran (auto) 0.03 (0.00-0.03) X10*3/uL Absolute Neuts (auto) 7.5 (2.0-8.3) x10*3/uL Absolute Nucleated RBC 0.000 (0.0-0.012) X10*3/uL Nucleated RBC % (auto) 0.0 (0.0-0.2) /100WBC D-Dimer High Sensitivty NG/ML Sodium 134 L (135-145) mmol/L Potassium 3.8 (3.3-5.1) mmol/L Chloride 100 (96-108) mmol/L Carbon Dioxide 25 (22-29) mmol/L Anion Gap 13 (12-20) BUN 13 (9-16) mg/dL Creatinine 0.74 (0.5-1.4) mg/dL Estim Creat Clear Calc 62.3 Estimated GFR > 60 Random Glucose 150 H (60-115) mg/dL Calcium 9.3 (8.4-10.2) mg/dL Magnesium 1.9 (1.6-2.6) mg/dL Iron 80 (30-160) mcg/dL TIBC 342 (228-428) mcg/dL % Saturation 23 (15-50) % Unsat Iron Binding 262 ug/dL Total Bilirubin 1.9 H (0.0-1.0) mg/dL AST 19 (5-31) U/L ALT 20 (0-31) U/L Alkaline Phosphatase 57 (39-117) U/L Troponin I High Sens (<3.5-17.0) ng/L B-Natriuretic Peptide (<100) pg/mL Total Protein 7.1 (6.5-8.0) g/dL Albumin 3.8 (3.5-5.0) g/dL TSH 1.73 (0.32-4.0) uIU/mL Urine Color Urine Appearance Urine pH (5.0-9.0) Ur Specific [place] (1.005-1.025) Urine Protein (Neg-Trace) mg/dL Urine Glucose (UA) (Negative) mg/dL Urine Ketones (Negative) mg/dL Urine Blood (Negative) Urine Nitrite (Negative) Ur Leukocyte Esterase (Negative) Urine RBC (0-2) /HPF Urine WBC (0-5) /HPF Ur Squamous Epith Cells (0-2) /HPF Urine Bacteria (None Seen) Hyaline Casts (0-2) /LPF Influenza Type A (KACY) Negative (Negative) Influenza Type B (KACY) Negative (Negative) Influenza A & B Note See Note 07/24/22 07/24/22 07/24/22 Range/Units 08:00 08:00 08:00 WBC (4.8-10.8) X10*3/uL RBC (4.20-5.50) X10*6/uL Hgb (12.0-16.0) g/dl Hct (37.0-47.0) % MCV (80.0-98.0) fL MCH (27.0-33.0) pg MCHC (31.0-35.0) g/dl RDW (11.0-16.0) % Plt Count (160-400) X10*3/uL MPV (9.4-12.3) fL Immature Gran % (Auto) (0.0-0.4) % Neut % (Auto) (45-73) % Lymph % (Auto) (20-40) % Holmes % (Auto) (2-11) % Eos % (Auto) (0-4) % Baso % (Auto) (0-2) % Lymph # (Auto) (1.2-4.9) X10*3/uL [place] # (Auto) (0.1-1.2) X10*3/uL Eos # (Auto) (0.0-0.4) X10*3/uL Baso # (Auto) (0.0-0.2) X10*3/uL Abs Immat Gran (auto) (0.00-0.03) X10*3/uL Absolute Neuts (auto) (2.0-8.3) x10*3/uL Absolute Nucleated RBC (0.0-0.012) X10*3/uL Nucleated RBC % (auto) (0.0-0.2) /100WBC D-Dimer High Sensitivty NG/ML Sodium (135-145) mmol/L Potassium (3.3-5.1) mmol/L Chloride (96-108) mmol/L Carbon Dioxide (22-29) mmol/L Anion Gap (12-20) BUN (9-16) mg/dL Creatinine (0.5-1.4) mg/dL Estim Creat Clear Calc Estimated GFR Random Glucose (60-115) mg/dL Calcium (8.4-10.2) mg/dL Magnesium (1.6-2.6) mg/dL Iron (30-160) mcg/dL TIBC (228-428) mcg/dL % Saturation (15-50) % Unsat Iron Binding ug/dL Total Bilirubin (0.0-1.0) mg/dL AST (5-31) U/L ALT (0-31) U/L Alkaline Phosphatase (39-117) U/L Troponin I High Sens < 2.7 (<3.5-17.0) ng/L B-Natriuretic Peptide 202 H (<100) pg/mL Total Protein (6.5-8.0) g/dL Albumin (3.5-5.0) g/dL TSH (0.32-4.0) uIU/mL Urine Color Yellow Urine Appearance Clear Urine pH 8.5 (5.0-9.0) Ur Specific [place] <= 1.005 (1.005-1.025) Urine Protein Negative (Neg-Trace) mg/dL Urine Glucose (UA) Negative (Negative) mg/dL Urine Ketones Negative (Negative) mg/dL Urine Blood Negative (Negative) Urine Nitrite Negative (Negative) Ur Leukocyte Esterase Negative (Negative) Urine RBC 3-5 H (0-2) /HPF Urine WBC 0-5 (0-5) /HPF Ur Squamous Epith Cells 0-2 (0-2) /HPF Urine Bacteria None Seen (None Seen) Hyaline Casts 0-2 (0-2) /LPF Influenza Type A (KACY) (Negative) Influenza Type B (KACY) (Negative) Influenza A & B Note 07/24/22 Range/Units 08:00 WBC (4.8-10.8) X10*3/uL RBC (4.20-5.50) X10*6/uL Hgb (12.0-16.0) g/dl Hct (37.0-47.0) % MCV (80.0-98.0) fL MCH (27.0-33.0) pg MCHC (31.0-35.0) g/dl RDW (11.0-16.0) % Plt Count (160-400) X10*3/uL MPV (9.4-12.3) fL Immature Gran % (Auto) (0.0-0.4) % Neut % (Auto) (45-73) % Lymph % (Auto) (20-40) % Holmes % (Auto) (2-11) % Eos % (Auto) (0-4) % Baso % (Auto) (0-2) % Lymph # (Auto) (1.2-4.9) X10*3/uL [place] # (Auto) (0.1-1.2) X10*3/uL Eos # (Auto) (0.0-0.4) X10*3/uL Baso # (Auto) (0.0-0.2) X10*3/uL Abs Immat Gran (auto) (0.00-0.03) X10*3/uL Absolute Neuts (auto) (2.0-8.3) x10*3/uL Absolute Nucleated RBC (0.0-0.012) X10*3/uL Nucleated RBC % (auto) (0.0-0.2) /100WBC D-Dimer High Sensitivty 225 NG/ML Sodium (135-145) mmol/L Potassium (3.3-5.1) mmol/L Chloride (96-108) mmol/L Carbon Dioxide (22-29) mmol/L Anion Gap (12-20) BUN (9-16) mg/dL Creatinine (0.5-1.4) mg/dL Estim Creat Clear Calc Estimated GFR Random Glucose (60-115) mg/dL Calcium (8.4-10.2) mg/dL Magnesium (1.6-2.6) mg/dL Iron (30-160) mcg/dL TIBC (228-428) mcg/dL % Saturation (15-50) % Unsat Iron Binding ug/dL Total Bilirubin (0.0-1.0) mg/dL AST (5-31) U/L ALT (0-31) U/L Alkaline Phosphatase (39-117) U/L Troponin I High Sens (<3.5-17.0) ng/L B-Natriuretic Peptide (<100) pg/mL Total Protein (6.5-8.0) g/dL Albumin (3.5-5.0) g/dL TSH (0.32-4.0) uIU/mL Urine Color Urine Appearance Urine pH (5.0-9.0) Ur Specific [place] (1.005-1.025) Urine Protein (Neg-Trace) mg/dL Urine Glucose (UA) (Negative) mg/dL Urine Ketones (Negative) mg/dL Urine Blood (Negative) Urine Nitrite (Negative) Ur Leukocyte Esterase (Negative) Urine RBC (0-2) /HPF Urine WBC (0-5) /HPF Ur Squamous Epith Cells (0-2) /HPF Urine Bacteria (None Seen) Hyaline Casts (0-2) /LPF Influenza Type A (KACY) (Negative) Influenza Type B (KACY) (Negative) Influenza A & B Note Independent Interpretation I performed an independent interpretation of an: EKG and Plain X-Ray Interpretation: EKG: Rapid atrial fibrillation with ventricular response of 115bpm. No ischemic changes. CXR: no pneumothorax, pleural effusion or infiltrates. Mildly enlarged cardiac silhouette with aortic atherosclerosis. Radiology Impression Discussion of test interpretation with radiology: I have reviewed the radiologist's reading. External Record Review External record reviewed: Inpatient record, Office record and Outpatient record Reviewed cardiology record. Reviewed ham scan. Reviewed emergency visit. Chronic Conditions Patient?s care impacted by: Diabetes, Hypertension and Other (afib, restless leg syndrome, asthma) Critical Care Time Critical Care Time Critical Care Time: Yes Total Critical Care Time: 60 Attestation: Rapid afib, IV cardizem and titration of cardizem, IV furosemide Discharge Plan Discharge Clinical Impression: Atrial fibrillation with rapid ventricular response, Dyspnea, CHF (congestive heart failure) Patient Disposition: Admitted As Inpatient
[2022-07-24 08:12] LABS: Appearance Urine Clear; Color Urine Yellow; Glucose Urine UA Negative (Negative); Leukocyte Esterase Urine Negative (Negative); Nitrite Urine Negative (Negative); PH 8.5 (5.0-9.0); Specific Gravity - Urine <= 1.005 (1.005-1.025); Urine Blood Negative (Negative); Urine Ketones Negative (Negative); Urine Protein Negative (Neg-Trace)
[2022-07-24] MEDS: clonazePAM 0.5 MG TABLET PO ×2 (08:15→09:43)
[2022-07-24] MEDS: Metoclopramide HCl 10 MG/2 ML VIAL IVPUSH (08:15)
[2022-07-24] MEDS: dilTIAZem HCL 50 MG/10 ML VIAL 15 MG IVPUSH (08:16)
[2022-07-24] MEDS: dilTIAZem HCL 125 MG in 0.9 % Sodium Chloride 100 ML 10 MG IVCONT ×2 (08:16→20:27)
[2022-07-24 08:17] LABS: Bacteria Urine None Seen (None Seen); D Dimer High Sensitivity 225 NG/ML; Hyaline Casts Urine 0-2 /LPF (0-2); Squamous Epithelial Cell Urine 0-2 /HPF (0-2); WBC Urine 0-5 /HPF (0-5)
[2022-07-24 08:27] LABS: Troponin-I High Sensitivity < 2.7 ng/L (<3.5-17.0)
[2022-07-24 08:28] LABS: B Type Natriuretic Peptide 202 pg/mL (<100)
--- NOTE | 2022-07-24 08:34 | PC.NURSE ---
Nurse at bedside to administer Cardizem push/drip and Klonipin for restless legs, pt is round rolling in bed, anxious, is not redirectable with packing machine pilot can router at bedside. MD at bedside, concerned with BP, however pt will not keep arm straight for BP despite redirection. another dose of Klonipin ordered
[2022-07-24] MEDS: Furosemide 40 MG/4 ML VIAL IVPUSH (09:38)
--- NOTE | 2022-07-24 09:44 | PC.NURSE ---
pt very restless and has been getting out of beg, pulling at cords and lines and had a BM on the floor. Sitter with pt. medicated per MAR> lasix given purewick in place. Current canister volume 400ml.
--- NOTE | 2022-07-24 11:15 | PHA.MEDREC ---
Pharmacy Consult ? Medication Reconciliation Pharmacy has completed the medication reconciliation. Patient states that they take Januvia 100mg daily and Crestor 5mg PM. Patient also states that they only take 1 puff daily of the Advair, although prescription is written for BID.
--- NOTE | 2022-07-24 11:23 | PM.IMHP ---
History of Present Illness Date of Service: 07/24/22 Attending physician on admission: Joo Arango Chief Complaint: SOB, genearlized weakness Addendum: Patient was noted to spike a temperature of 101.6 degrees when she was brought up to the floor, continued to be restless and only intermittently responsive to questions. Ammonia WNL at 24, lactic acid WNL at 1.5. Will check respiratory panel, RSV, COVID, influenza. Will give acetaminophen suppository. Consulted infectious disease, will obtain CT of head and abdomen/pelvis and start empiric ceftriaxone. Repeat CBC showed consistent WBC of 10.0, no leukocytosis. Pt initially too restless for CT. Will give Ativan 0.5mg prior to second attempt at getting CTs. Spoke to pt's sister Evelyne at [phone] who said pt has been physically and mentally declining for the past 3-4 years since moving to [place]. Sister is unclear how much help patient gets with ADLs or medicine disbursement. Sister is particularly worried about patient's use of tramadol, says patient has been ?addicted? to it for years now. She notes an episode during a vacation in [place] a few years ago where pt did not have her medication and became restless, agitated, pale, had involuntary movements, started taking her clothes off, and spoke nonsensically. Pt is a 76-year-old female with a PMH significant for AFib on Xarelto, non insulin-dependent diabetes, HTN, HLD, hypothyroidism, restless leg syndrome, asthma, environmental allergies, and former 30 pack year smoker quit in 1994? who presents to the ED with?multiple complaints including headache, intermittent shortness of breath nausea, nausea, and generalized weakness. Patient was found to be in AFib with RVR in the 120-130s. At time of interview patient is seen to be extremely restless in bed, constantly moving legs, kicking, standing up, and changing positions from chair to bed and back again. Patient is mildly confused, capable of answering most questions appropriately but at other times not answering or unclear how to answer. Pt is unable to remain still for any stretch of time. Spoke briefly with patient's primary contact, who stated that patient has been having declining mental function for the past year so. Patient has been more forgetful, weaker, not wanting to participate in events. Patient lives alone. The primary contact said she would stop been during the week to check on the patient, but it is unclear how much support the patient receives. Does not seems to have support on the weekends or visiting nurses services. Patient states she takes her medications as prescribed, but it is unclear how compliant she is. Of note, pt has been diagnosed with AFib within the past month and had an extensive cardiology workup including from a logical stress test and echocardiogram. In the ED patient was afebrile tachycardia up to 130, tachypneic up to 25, and hypertensive up to 170/94. Labs were significant for hyperbilirubinemia of 1.9, BNP mildly elevated at 202. No leukocytosis, stable H&H. Electrolytes WNL. Renal function baseline. LFTs WNL. Troponin negative. D-dimer negative at 225. CXR showed no acute findings. EKG demonstrated AFib with RVR of 122 with no evidence of ST elevations or depressions. Pharmacological stress test on 07/12/2022 was without anginal symptoms, with isolated PVCs, and with normotensive response to injection. Echocardiogram on 06/14/2022 with LVEF of 55-60%. Pt was treated with metoclopramide, clonazepam, diltiazem 15 mg IV, furosemide, and started on a Cardizem drip. Pt will be admitted to the hospital for treatment and further monitoring of AFib with RVR with diltiazem drip and specialist consult. Review of Systems Review of Systems: Difficult to obtain d/t pt's mentaiton Headache Intermittent SOB Generalized weakness Restless legs [facility] Medical History Addiction, opium Arthritis Autoimmune thyroiditis Depression with anxiety Diabetes type 2, uncontrolled Dyslipidemia Essential hypertension Hypothyroidism (acquired) Obesity (BMI 30-39.9) Osteopenia Overweight (BMI 25.0-29.9) Vitamin D deficiency Family History Father Diabetes Mother No problems noted. Son Substance use disorder Surgical History History of radical hysterectomy Hx of arthroscopy of knee Hx of cataract surgery Social History Household Members: None Housing: Condominium Do you presently have visiting nurse or other home services: Yes Unable to assess alcohol history related to: Unable to respond Alcohol intake: never Patient Tobacco Use Status: Former Tobacco user Smoked in Last 30 Days: No e-Cigarette/Vaping Use: Never Used Patient Interested in Nicotine Replacement: No Patient Given Instructions on How to Stop Smoking: No Second Hand Smoke Exposure: No Use of substances other than those prescribed or required for medical reasons: Unknown Currently Displaying Signs/Symptoms of Drug Intoxication Withdrawal: No Advance Directives: No Advance Directives Information Provided: Yes Do you have thoughts of harming others: None Do you have a plan to hurt others: No Plan Recently lost weight without trying: Unsure Nutrition Risks: No Nutritional Risk Patient : No : No Poor oral hygiene: No service: No Current occupational status: retired [employer] Allergies Allergy/AdvReac Type Severity Reaction Status Date / Time aspirin [ASPIRIN] Allergy Severe ANAPHYLAXIS Verified 07/09/22 13:37 Seasonal Allergies Allergy Intermediate asthma, Verified 07/09/22 13:37 itch, rash Active Medications: Current Medications Diltiazem HCl 125 mg/ Sodium (Chloride) 125 mls @ 0 mls/hr IVCONT .Q0M RAMESH; Protocol Last Admin: 07/24/22 08:16 Dose: 10 mg/hr, 10 mls/hr Pharmacy Consult (Consult Rx Perform Med Rec) 1 each MISCELLANE ONCE PRN PRN Reason: Consult order Home Medications Medication Instructions Recorded Confirmed Last Taken Type blood sugar diagnostic #10 ea 11/23/19 06/17/22 Unknown History montelukast 10 mg tablet 10 mg PO BEDTIME 11/23/19 07/24/22 07/23/22 History bisoprolol 2.5 1 tab PO DAILY 06/19/21 07/24/22 07/23/22 History mg-hydrochlorothiazide 6.25 mg tablet ezetimibe 10 mg tablet 10 mg PO DAILY 06/17/22 07/24/22 07/23/22 History rivaroxaban 20 mg tablet (Xarelto) 20 mg PO DAILY@1800 06/17/22 07/24/22 07/23/22 History sitagliptin phosphate 100 mg tablet 100 mg PO DAILY 06/17/22 07/24/22 07/23/22 History albuterol sulfate 90 mcg/actuation 2 puff inhalation Q4-6H PRN dyspnea 07/24/22 07/24/22 07/23/22 History aerosol inhaler (Ventolin HFA) calcium citrate 315 mg-vitamin D3 2 tab PO DAILY 07/24/22 07/24/22 07/23/22 History 5 mcg (200 unit) tablet (Calcium Citrate + D) clonazepam 0.125 mg disintegrating 0.125 - 0.25 mg PO BEDTIME PRN 07/24/22 07/24/22 Unknown History tablet Restless Leg(S) fluticasone 500 mcg-salmeterol 50 1 ea PO DAILY 07/24/22 07/24/22 07/23/22 History mcg/dose blistr powdr for inhalation furosemide 20 mg tablet 20 mg PO DAILY 07/24/22 07/24/22 07/23/22 History gabapentin 300 mg capsule 300 mg PO BID 07/24/22 07/24/22 07/23/22 History levothyroxine 137 mcg tablet 137 mcg PO DAILY@0600 07/24/22 07/24/22 07/23/22 History losartan 25 mg tablet 25 mg PO BEDTIME 07/24/22 07/24/22 07/23/22 History metformin 500 mg tablet,extended 500 mg PO DAILY@1800 07/24/22 07/24/22 07/23/22 History release 24 hr omeprazole 20 mg capsule,delayed 20 mg PO DAILY@0630 07/24/22 07/24/22 07/23/22 History release rosuvastatin 5 mg tablet 5 mg PO BEDTIME 07/24/22 07/24/22 07/23/22 History sucralfate 100 mg/mL oral 10 ml PO BID@1200,2100 PRN GERD 07/24/22 07/24/22 07/23/22 History suspension tramadol 50 mg tablet 50 mg PO Q12H PRN severe pain 07/24/22 07/24/22 07/23/22 History Physical Exam Vital Signs and Narrative: Vital Signs: Last Vital Signs Temp 98.5 F 07/24/22 07:50 Pulse 106 H 07/24/22 09:45 Resp 25 H 07/24/22 09:45 BP 122/82 07/24/22 09:45 Pulse Ox 92 07/24/22 09:45 O2 Del Method Room Air 07/24/22 09:45 BMI result Body Mass Index 31.8 Physical exam limited d/t patient's extreme restlessness, having difficulty remaining still or in 1 position Constitutional: Alert, slightly confused, extremely restless. Pt unable to keep legs still, constantly kicking and gyrating, moving from bed to chair and back again. Mental Status: Oriented to person, place and time. Slightly confused as to president and situation. Able to answer most questions appropriately. Eyes: Pupils are equal, round, and reactive to light. Ear, Nose, and Throat: Oropharynx clear, mucous membranes moist. Ears and nose without deformities. Trachea midline. Respiratory: Clear to auscultation bilaterally. No wheezing, rales, or rhonchi. Cardiovascular: Irregularly irregular rhythm, tachycardic. Gastrointestinal: Abdomen soft, non-tender, non-distended. Normal bowel sounds. Neurologic: Cranial nerves II-XII are grossly intact bilaterally. No focal neurological deficits. Moves all extremities spontaneously. Skin: No rashes or lesions noted. Musculoskeletal: No cyanosis or clubbing. Extremities: Trace lower leg edema bilaterally. Results Labs 07/24/22 06:37 07/24/22 06:37 Labs: Laboratory Results - last 24 hr 07/24/22 07/24/22 07/24/22 06:37 06:37 06:37 MCV 85.2 MCH 28.9 MCHC 33.9 RDW 13.6 Plt Count 218 MPV 10.4 Immature Gran % (Auto) 0.3 Neut % (Auto) 73.9 H Lymph % (Auto) 15.0 L Mayes % (Auto) 9.4 Eos % (Auto) 0.8 Baso % (Auto) 0.6 Lymph # (Auto) 1.5 Mayes # (Auto) 1.0 Eos # (Auto) 0.1 Baso # (Auto) 0.1 Abs Immat Gran (auto) 0.03 Absolute Neuts (auto) 7.5 Absolute Nucleated RBC 0.000 Nucleated RBC % (auto) 0.0 D-Dimer High Sensitivty Anion Gap 13 Estim Creat Clear Calc 62.3 Estimated GFR > 60 Random Glucose 150 H Calcium 9.3 Total Bilirubin 1.9 H AST 19 ALT 20 Alkaline Phosphatase 57 Troponin I High Sens B-Natriuretic Peptide Total Protein 7.1 Albumin 3.8 Urine Color Urine Appearance Urine pH Ur Specific [place] Urine Protein Urine Glucose (UA) Urine Ketones Urine Blood Urine Nitrite Ur Leukocyte Esterase Urine RBC Urine WBC Ur Squamous Epith Cells Urine Bacteria Hyaline Casts Influenza Type A (KACY) Negative Influenza Type B (KACY) Negative Influenza A & B Note See Note 07/24/22 07/24/22 07/24/22 08:00 08:00 08:00 MCV MCH MCHC RDW Plt Count MPV Immature Gran % (Auto) Neut % (Auto) Lymph % (Auto) Mayes % (Auto) Eos % (Auto) Baso % (Auto) Lymph # (Auto) Mayes # (Auto) Eos # (Auto) Baso # (Auto) Abs Immat Gran (auto) Absolute Neuts (auto) Absolute Nucleated RBC Nucleated RBC % (auto) D-Dimer High Sensitivty Anion Gap Estim Creat Clear Calc Estimated GFR Random Glucose Calcium Total Bilirubin AST ALT Alkaline Phosphatase Troponin I High Sens < 2.7 B-Natriuretic Peptide 202 H Total Protein Albumin Urine Color Yellow Urine Appearance Clear Urine pH 8.5 Ur Specific [place] <= 1.005 Urine Protein Negative Urine Glucose (UA) Negative Urine Ketones Negative Urine Blood Negative Urine Nitrite Negative Ur Leukocyte Esterase Negative Urine RBC 3-5 H Urine WBC 0-5 Ur Squamous Epith Cells 0-2 Urine Bacteria None Seen Hyaline Casts 0-2 Influenza Type A (KACY) Influenza Type B (KACY) Influenza A & B Note 07/24/22 08:00 MCV MCH MCHC RDW Plt Count MPV Immature Gran % (Auto) Neut % (Auto) Lymph % (Auto) Mayes % (Auto) Eos % (Auto) Baso % (Auto) Lymph # (Auto) Mayes # (Auto) Eos # (Auto) Baso # (Auto) Abs Immat Gran (auto) Absolute Neuts (auto) Absolute Nucleated RBC Nucleated RBC % (auto) D-Dimer High Sensitivty 225 Anion Gap Estim Creat Clear Calc Estimated GFR Random Glucose Calcium Total Bilirubin AST ALT Alkaline Phosphatase Troponin I High Sens B-Natriuretic Peptide Total Protein Albumin Urine Color Urine Appearance Urine pH Ur Specific [place] Urine Protein Urine Glucose (UA) Urine Ketones Urine Blood Urine Nitrite Ur Leukocyte Esterase Urine RBC Urine WBC Ur Squamous Epith Cells Urine Bacteria Hyaline Casts Influenza Type A (KACY) Influenza Type B (KACY) Influenza A & B Note Imaging Radiologist's Impressions: Impressions Chest X-Ray 07/24/22 06:06 IMPRESSION: No acute findings. Assessment and Plan (1) Atrial fibrillation with rapid ventricular response: Status: Acute (2) Restless leg syndrome: Status: Acute Plan AFib with RVR Patient with heart rate up into the 130s Patient recently diagnosed with AFib within the past month Pharmacological stress test on 07/12/2022 the found patient without anginal symptoms, with isolated PVCs, and normotensive response to injection with nondiagnostic EKG for ischemia Echocardiogram of 06/14/2022 lb normal LVEF at 55 and 60% a with basilar inferior segment hypokinetic Patient given diltiazem 15 mg IV in ED and started on diltiazem drip Continue diltiazem drip Continue Xarelto Cardiology consult Monitor on telemetry Restless leg syndrome Patient currently very restless, difficulty staying in bed or lying still Continue gabapentin, clonazepam p.r.n. Will check iron studies for possible iron supplementation Question of mental decline Patient's primary contact noted patient has been experiencing mental decline for the past year with increased forgetfulness and weakness Patient has no formal diagnosis of dementia Patient lives alone, has some support but unclear how much, unclear how compliant patient is with medications PT consult HFpEF CXR clear, BNP mildly elevated at 202, lungs CTA Does not appear to be in acute exacerbation Patient received furosemide 40 mg IV in ED Continue home furosemide 20 mg p.o. HTN Hold bisoprolol-hydrochlorothiazide, losartan for now, BP soft, pt on Cardizem drip Resume as indicated Owa-[id number]-dbrltewtm diabetes type 2 Hold metformin Continue Januvia Diabetic diet Sliding-scale insulin HLD Continue ezetimide COPD Not in acute exacerbation Continue home inhalers Full Code Attending:?Dr. Arango DVT Prophylaxis: On Xarelto Pt will require a hospitalization of at least two nights for treatment of?AFib with RVR with diltiazem drip and specialist consult. Time Spent With Patient Time: Total time managing care of this patient today ____ minutes. Quality Stroke Does the patient have a stroke diagnosis?: No VTE Prior VTE?: No VTE Risk Level:: Medical - moderate - high VTE Device Contraindication: Treatment Not Indicated VTE Drug Contraindication: N/A - Med Ordered
[2022-07-24 11:56] LABS: Magnesium 1.9 mg/dL (1.6-2.6)
[2022-07-24 12:17] LABS: TSH reflex Free T4 1.73 uIU/mL (0.32-4.0)
[2022-07-24 12:59] LABS: Iron 80 mcg/dL (30-160); Percent Iron Saturation 23 % (15-50); Total Iron Binding Capacity 342 mcg/dL (228-428); Unsaturated Iron Binding 262 ug/dL
--- NOTE | 2022-07-24 13:15 | PC.NURSE ---
pt awaiting bed assignment. pt very restless at the moment and reports cramping in their leg. Cardizem drip running 10mg/hr.
[2022-07-24] MEDS: rOPINIRole HCL 0.5 MG TABLET PO ×2 (13:49→20:17)
[2022-07-24] MEDS: SITagliptin Phosphate 100 MG TABLET PO (13:50)
[2022-07-24] MEDS: Cholecalciferol (Vitamin D3) 25 MCG TABLET 50 MCG PO (13:50)
[2022-07-24] MEDS: Ezetimibe 10 MG TABLET PO (13:50)
[2022-07-24] MEDS: Gabapentin 300 MG CAPSULE PO (13:51)
[2022-07-24] MEDS: Omeprazole 20 MG CAPSULE.DR PO (13:52)
--- NOTE | 2022-07-24 13:56 | PC.NURSE ---
pt with sitter to help keep them calm, medicated per MAR. awaiting bed assignment. will ctm
--- NOTE | 2022-07-24 14:15 | PC.NURSE ---
awaiting med verification from pharmacy
--- NOTE | 2022-07-24 15:46 | PC.NURSE ---
awaiting callback from nurse for report
[2022-07-24 17:17] LABS: Glucose, Whole Blood 118 mg/dL (60-115)
[2022-07-24] MEDS: Acetaminophen Supp 650 MG SUPP.RECT PR ×2 (17:38→23:24)
[2022-07-24 17:45] LABS: Ammonia 24 umol/L (13-55)
[2022-07-24 17:48] LABS: Lactic Acid 1.5 mmol/L (0.5-2.0)
[2022-07-24 19:59] LABS: MANUAL DIFF FLAG NO
[2022-07-24 20:07] LABS: Basophils Absolute Auto 0.1 X10*3/uL (0.0-0.2); Basophils Percent Auto 0.6 % (0-2); Eosinophils Percent Auto 0.4 % (0-4); Hematocrit 40.2 % (37.0-47.0); Hemoglobin 13.6 g/dl (12.0-16.0); Imm Gran Abs Auto 0.04 X10*3/uL (0.00-0.03); Imm Gran Pct Auto 0.4 % (0.0-0.4); Lymphocytes Absolute Auto 1.2 X10*3/uL (1.2-4.9); Lymphocytes Percent Auto 12.4 % (20-40); Mean Corpuscular HGB Conc 33.8 g/dl (31.0-35.0); Mean Corpuscular Hemoglobin 28.6 pg (27.0-33.0); Mean Corpuscular Volume 84.6 fL (80.0-98.0); Mean Platelet Volume 10.5 fL (9.4-12.3); Neutrophils Absolute Auto 7.6 x10*3/uL (2.0-8.3); Neutrophils Percent Auto 76.2 % (45-73); Platelet Count 231 X10*3/uL (160-400); Red Blood Count 4.75 X10*6/uL (4.20-5.50); Red Cell Distribution Width 13.7 % (11.0-16.0)
[2022-07-24] MEDS: Atorvastatin Calcium 20 MG TABLET PO (20:17)
[2022-07-24] MEDS: Montelukast Sodium 10 MG TABLET PO (20:17)
[2022-07-24 20:34] LABS: Glucose, Whole Blood 159 mg/dL (60-115)
[2022-07-24] MEDS: LORazepam 2 MG/ML VIAL 0.5 MG IVPUSH (21:45)
[2022-07-24] MEDS: OLANZapine 10 MG VIAL 5 MG IM (22:14)
--- NOTE | 2022-07-24 23:10 | PM.EVENT ---
Event Note Date of Service: 07/24/22 Event Note: Patient is very restless, unable to get CT scan done. Patient was given Ativan as well as Zyprexa and Requip for restless leg syndrome. patient's restlessness not responding to any of these meds. around 23:00 nurse message me stating that patient is now more restless, and encephalopathic. On my exam patient has significant leg movement, she is somnolent but arousable to verbal command. Pupils are pinpoint. patients vitals are significant for a temp of 102.7 degrees, heart rate of 120s, patient was ordered a ceftriaxone earlier in the evening after we spoke to Infectious Disease earlier in the evening, but given the persistent fever will switch to broader antibiotics to include vanc and Zosyn. given the pupillary miosis will administer 1 dose of Narcan. Tylenol per rectum. Will keep NPO. Pending CT head, will add chest CT, abdominal CT. Time Spent With Patient Time: Total time managing care of this patient today ____ minutes.
[2022-07-24] MEDS: Naloxone HCl 0.4 MG/ML VIAL IVPUSH (23:25)
[2022-07-24] MEDS: Piperacillin Sodium/Tazobactam 3.375 GM in 0.9 % Sodium Chloride 50 ML IV (23:43)
[2022-07-25] VITALS (14 sets, daily range): BP systolic 117–171; BP diastolic 58–91; PULSE 80–150; RESP 18–22; TEMP 36.1–39.4; O2SAT 92–99
[2022-07-25 00:12] LABS: Influenza A PCR NEGATIVE (Negative); Influenza B PCR NEGATIVE (Negative); Resp Syncy Virus RNA Qual PCR NEGATIVE (Negative); SARS COV2 PCR INHOUSE NEGATIVE (Negative)
[2022-07-25 00:16] LABS: ABG Base Excess 8.8 mmol/L; ABG HCO3 31 mmol/L (22-26); ABG pCO2 37 mmHg (32-45); ABG pH 7.54 (7.35-7.45); ABG pO2 72 mmHg (83-108)
[2022-07-25 00:39] LABS: Lactic Acid 1.2 mmol/L (0.5-2.0)
[2022-07-25 00:43] LABS: ABG Refer to POC result
[2022-07-25] MEDS: vancomycin/NS 2,000 MG/500 ML PLAST..BAG 250 MG IV (02:27)
[2022-07-25 02:29] LABS: Glucose, Whole Blood 150 mg/dL (60-115)
[2022-07-25] MEDS: Ketorolac Tromethamine 30 MG/ML VIAL IVPUSH (03:31)
[2022-07-25 04:18] LABS: Hematocrit 41.4 % (37.0-47.0); Hemoglobin 14.3 g/dl (12.0-16.0); Mean Corpuscular HGB Conc 34.5 g/dl (31.0-35.0); Mean Corpuscular Hemoglobin 29.6 pg (27.0-33.0); Mean Corpuscular Volume 85.7 fL (80.0-98.0); Mean Platelet Volume 10.7 fL (9.4-12.3); Platelet Count 208 X10*3/uL (160-400); Red Blood Count 4.83 X10*6/uL (4.20-5.50); Red Cell Distribution Width 13.7 % (11.0-16.0); White Blood Count 10.7 X10*3/uL (4.8-10.8)
[2022-07-25 04:30] LABS: Lactic Acid 1.5 mmol/L (0.5-2.0)
[2022-07-25 04:34] LABS: Anion Gap 16 (12-20); Blood Urea Nitrogen 11 mg/dL (9-16); Calcium 9.2 mg/dL (8.4-10.2); Carbon Dioxide 23 mmol/L (22-29); Chloride 100 mmol/L (96-108); Creatinine Clr Calc Pharmacy 61.5; Estimated Glomerular Filt Rate > 60; Glucose Random 140 mg/dL (60-115); Potassium 3.3 mmol/L (3.3-5.1); Sodium 136 mmol/L (135-145)
[2022-07-25] MEDS: Piperacillin Sodium/Tazobactam 3.375 GM in 0.9 % Sodium Chloride 50 ML IV ×4 (04:45→22:37)
[2022-07-25 07:05] LABS: Glucose, Whole Blood 143 mg/dL (60-115)
--- NOTE | 2022-07-25 07:31 | PC.NURSE ---
pt was not able to obtain the imaging ordered on 07/24. administered ativan ivpush and zyprexa im. when patient returns to unit approximately at 23:00 the patient is foaming at the mouth and is arousable by name but is very confused. md notifed and came to assess patient. narcan ordered and administered with no effect. labs ordered and obtained. found to have temperature of 103.0 rectally, tylenol suppository administered with no effect. toradol ivpush ordered with cooling blanket. temp was retaken at was 100.1. small amount of bright red rectal bleeding noticed and md notified. approximately at 02:30 restraints was placed, skin care and vitals taken and restraints removed at 06:00 07/25/2022 with patient being much more alert and oriented.
[2022-07-25] MEDS: dilTIAZem HCL 125 MG in 0.9 % Sodium Chloride 100 ML 10 MG IVCONT (08:13)
[2022-07-25] MEDS: Furosemide 20 MG TABLET PO (08:34)
[2022-07-25] MEDS: traMADoL HCL 50 MG TABLET PO (08:34)
[2022-07-25] MEDS: Ezetimibe 10 MG TABLET PO (08:34)
[2022-07-25] MEDS: Gabapentin 300 MG CAPSULE PO ×2 (08:34→20:56)
[2022-07-25] MEDS: Cholecalciferol (Vitamin D3) 25 MCG TABLET 50 MCG PO (08:34)
[2022-07-25] MEDS: SITagliptin Phosphate 100 MG TABLET PO (08:34)
[2022-07-25 08:35] LABS: Adenovirus PCR Not Detected (Not Detect.); Bordetella parapertussis PCR Not Detected (Not Detect.); Bordetella pertussis PCR Not Detected (Not Detect.); Chlamydia pneumoniae PCR Not Detected (Not Detect.); Coronavirus 229E PCR Not Detected (Not Detect.); Coronavirus HKU1 PCR Not Detected (Not Detect.); Coronavirus NL63 PCR Not Detected (Not Detect.); Coronavirus OC43 PCR Not Detected (Not Detect.); Human metapneumovirus PCR Not Detected (Not Detect.); Influenza A PCR Not Detected (Not Detect.); Influenza B PCR Not Detected (Not Detect.); Mycoplasma pneumoniae PCR Not Detected (Not Detect.); Parainfluenza 1 PCR Not Detected (Not Detect.); Parainfluenza 2 PCR Not Detected (Not Detect.); Parainfluenza 3 PCR Not Detected (Not Detect.); Parainfluenza 4 PCR Not Detected (Not Detect.); RSV PCR Not Detected (Not Detect.); Rhino/Enterovirus PCR Not Detected (Not Detect.); SARS-CoV-2 PCR Not Detected (Not Detect.)
--- NOTE | 2022-07-25 08:58 | P.CNNE_ITS ---
History of Present Illness Data of Consult Service Date: 07/25/22 Primary Care Provider: Unknown Physician HPI Reason for consult: Encephalopathy 76-year-old female with a PMH significant for AFib on Xarelto, non insulin- dependent diabetes, HTN,?who was brought to hospital with headache cough a restlessness, which she stated was going on for few weeks. 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 There was also concern that she was using 2 which tramadol. Last night she was noted to be quite restless and confused with this morning she was better. She had received some antibiotics overnight. Investigations were difficult because of her constant restlessness. Review of Systems Review of Systems: She complained of chronic cough and headaches. [facility] Past Medical History Medical History Addiction, opium Arthritis Autoimmune thyroiditis Depression with anxiety Diabetes type 2, uncontrolled Dyslipidemia Essential hypertension Hypothyroidism (acquired) Obesity (BMI 30-39.9) Osteopenia Overweight (BMI 25.0-29.9) Vitamin D deficiency Family History Family History Father Diabetes Mother No problems noted. Son Substance use disorder Surgical History Surgical History History of radical hysterectomy Hx of arthroscopy of knee Hx of cataract surgery Social History Social History Household Members: None Housing: Condominium Do you presently have visiting nurse or other home services: Yes Unable to assess alcohol history related to: Unable to respond Alcohol intake: never Patient Tobacco Use Status: Former Tobacco user Smoked in Last 30 Days: No e-Cigarette/Vaping Use: Never Used Patient Interested in Nicotine Replacement: No Patient Given Instructions on How to Stop Smoking: No Second Hand Smoke Exposure: No Use of substances other than those prescribed or required for medical reasons: Unknown Currently Displaying Signs/Symptoms of Drug Intoxication Withdrawal: No Advance Directives: No Advance Directives Information Provided: Yes Do you have thoughts of harming others: None Do you have a plan to hurt others: No Plan Recently lost weight without trying: Unsure Nutrition Risks: No Nutritional Risk Patient : No : No Poor oral hygiene: No service: No Current occupational status: retired [employer] Allergies Allergy/AdvReac Type Severity Reaction Status Date / Time aspirin [ASPIRIN] Allergy Severe ANAPHYLAXIS Verified 07/09/22 13:37 Seasonal Allergies Allergy Intermediate asthma, Verified 07/09/22 13:37 itch, rash Active Medications: Current Medications Acetaminophen (Acetaminophen 325 Mg Tablet) 650 mg PO Q6H PRN PRN Reason: Pain, Mild (Pain Scale 1-3) Acetaminophen (Acetaminophen Supp 650 Mg Supp.Rect) 650 mg RI Q6H PRN PRN Reason: Fever Last Admin: 07/24/22 23:24 Dose: 650 mg Albuterol Sulfate (Albuterol Sulfate 90 Mcg 8 Gm Inhaler) 2 puff INHALE Q4H PRN PRN Reason: dyspnea Atorvastatin Calcium (Atorvastatin Calcium 20 Mg Tablet) 20 mg PO BEDTIME RAMESH Last Admin: 07/24/22 20:17 Dose: 20 mg Clonazepam (Clonazepam 0.125 Mg Tab.Rapdis) 0.125 mg PO BEDTIME MRX1 PRN PRN Reason: Restless Leg(S) Last Admin: 07/25/22 08:34 Dose: 0.125 mg Docusate Sodium (Docusate Sodium 100 Mg Capsule) 100 mg PO DAILY PRN PRN Reason: Constipation Ezetimibe (Ezetimibe 10 Mg Tablet) 10 mg PO DAILY [facility] Last Admin: 07/25/22 08:34 Dose: 10 mg Enoxaparin Sodium (Enoxaparin Sodium 80 Mg/0.8 Ml Syringe) 70 mg SUBCUT Q12H RAMESH Fluticasone/Vilanterol (Fluticasone/Vilanterol 200/25 Blst.W.Dev) 1 puff INHALE RDAILY [facility] Furosemide (Furosemide 20 Mg Tablet) 20 mg PO DAILY RAMESH; Protocol Last Admin: 07/25/22 08:34 Dose: 20 mg Gabapentin (Gabapentin 300 Mg Capsule) 300 mg PO BID [facility] Last Admin: 07/25/22 08:34 Dose: 300 mg Glucose (Glucose Gel 15 Gm Gel..Gram.) 15 gm PO Q15M PRN; Protocol PRN Reason: per Hypoglycemia Standing Ord. Diltiazem HCl 125 mg/ Sodium (Chloride) 125 mls @ 0 mls/hr IVCONT .Q0M RAMESH; Protocol Last Admin: 07/25/22 08:13 Dose: 10 mg/hr, 10 mls/hr Dextrose (D10) 250 mls @ 750 mls/hr IV Q15M PRN; Protocol PRN Reason: per Hypoglycemia Standing Ord. Piperacillin Sod/Tazobactam (Sod 3.375 gm/ Sodium Chloride) 50 mls @ 100 mls/hr IV Q6H [facility] Last Infusion: 07/25/22 05:25 Dose: Infused Vancomycin HCl 500 mg/ Sodium (Chloride) 110 mls @ 110 mls/hr IV Q8H [facility] Insulin Human Lispro (Insulin Lispro 100 Unit/Ml 3 Ml Vial) 0 unit SUBCUT QIDACHS [facility]; Protocol Last Admin: 07/25/22 07:15 Dose: Not Given Levothyroxine Sodium (Levothyroxine Sodium 112 Mcg Tablet) 112 mcg PO DAILY@0600 [facility] Last Admin: 07/25/22 07:15 Dose: Not Given Levothyroxine Sodium (Levothyroxine Sodium 25 Mcg Tablet) 25 mcg PO DAILY@0600 [facility] Last Admin: 07/25/22 07:15 Dose: Not Given Montelukast Sodium (Montelukast Sodium 10 Mg Tablet) 10 mg PO BEDTIME [facility] Last Admin: 07/24/22 20:17 Dose: 10 mg Omeprazole (Omeprazole 20 Mg Capsule.Dr) 20 mg PO DAILY@0630 [facility] Last Admin: 07/25/22 07:16 Dose: Not Given Ondansetron HCl (Ondansetron Hcl 4 Mg/2 Ml Vial) 4 mg IVPUSH Q8H PRN PRN Reason: Nausea and Vomiting Pharmacy Consult (Consult Rx Perform Med Rec) 1 each MISCELLANE ONCE PRN PRN Reason: Consult order Pharmacy Consult (Consult Rx Vancomycin Dosing) 1 each MISCELLANE DAILY PRN PRN Reason: Consult order Ropinirole HCl (Ropinirole Hcl 0.5 Mg Tablet) 0.5 mg PO BEDTIME [facility] Last Admin: 07/24/22 20:17 Dose: 0.5 mg Sitagliptin Phosphate (Sitagliptin Phosphate 100 Mg Tablet) 100 mg PO DAILY [facility] Last Admin: 07/25/22 08:34 Dose: 100 mg Sodium Chloride (0.9 % Sodium Chloride Flush 3 Ml Syringe) 3 ml IVFLUSH QSHIFT [facility] Last Admin: 07/25/22 07:17 Dose: Not Given Sucralfate (Sucralfate Oral Suspension 1 Gm/10 Ml Oral.Susp) 1 gm PO BID@1200,2100 PRN PRN Reason: GERD Tramadol HCl (Tramadol Hcl 50 Mg Tablet) 50 mg PO Q12H PRN PRN Reason: severe pain Last Admin: 07/25/22 08:34 Dose: 50 mg Vitamin D (Cholecalciferol (Vitamin D3) 25 Mcg Tablet) 50 mcg PO DAILY RAMESH Last Admin: 07/25/22 08:34 Dose: 50 mcg Home Medications Medication Instructions Recorded Confirmed Last Taken Type blood sugar diagnostic #10 ea 11/23/19 06/17/22 Unknown History montelukast 10 mg tablet 10 mg PO BEDTIME 11/23/19 07/24/22 07/23/22 History bisoprolol 2.5 1 tab PO DAILY 06/19/21 07/24/22 07/23/22 History mg-hydrochlorothiazide 6.25 mg tablet ezetimibe 10 mg tablet 10 mg PO DAILY 06/17/22 07/24/22 07/23/22 History rivaroxaban 20 mg tablet (Xarelto) 20 mg PO DAILY@1800 06/17/22 07/24/22 07/23/22 History sitagliptin phosphate 100 mg tablet 100 mg PO DAILY 06/17/22 07/24/22 07/23/22 History albuterol sulfate 90 mcg/actuation 2 puff inhalation Q4-6H PRN dyspnea 07/24/22 07/24/22 07/23/22 History aerosol inhaler (Ventolin HFA) calcium citrate 315 mg-vitamin D3 2 tab PO DAILY 07/24/22 07/24/22 07/23/22 History 5 mcg (200 unit) tablet (Calcium Citrate + D) clonazepam 0.125 mg disintegrating 0.125 - 0.25 mg PO BEDTIME PRN 07/24/22 07/24/22 Unknown History tablet Restless Leg(S) fluticasone 500 mcg-salmeterol 50 1 ea PO DAILY 07/24/22 07/24/22 07/23/22 History mcg/dose blistr powdr for inhalation furosemide 20 mg tablet 20 mg PO DAILY 07/24/22 07/24/22 07/23/22 History gabapentin 300 mg capsule 300 mg PO BID 07/24/22 07/24/22 07/23/22 History levothyroxine 137 mcg tablet 137 mcg PO DAILY@0600 07/24/22 07/24/22 07/23/22 History losartan 25 mg tablet 25 mg PO BEDTIME 07/24/22 07/24/22 07/23/22 History metformin 500 mg tablet,extended 500 mg PO DAILY@1800 07/24/22 07/24/22 07/23/22 History release 24 hr omeprazole 20 mg capsule,delayed 20 mg PO DAILY@0630 07/24/22 07/24/22 07/23/22 History release rosuvastatin 5 mg tablet 5 mg PO BEDTIME 07/24/22 07/24/22 07/23/22 History sucralfate 100 mg/mL oral 10 ml PO BID@1200,2100 PRN GERD 07/24/22 07/24/22 07/23/22 History suspension tramadol 50 mg tablet 50 mg PO Q12H PRN severe pain 07/24/22 07/24/22 07/23/22 History Physical Exam Vital Signs: Vital Signs: Last Vital Signs Temp 97.1 F 07/25/22 08:03 Pulse 88 07/25/22 07:06 Resp 20 07/25/22 07:06 BP 118/58 L 07/25/22 07:06 Pulse Ox 92 07/25/22 07:06 O2 Del Method Room Air 07/25/22 07:06 BMI result Body Mass Index 31.8 Neuro: Other: She is alert and awake with normal spontaneity of speech fluency comprehension and anxious affect. She is mild to moderately restless. Face is symmetrical. Visual miller are full. There is no obvious focal weakness. Deep tendon reflexes are trace to absent with equivocal plantars. 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 She still was quite restless but maybe not as confused. She had mild fever and she was still coughing but CBC did not suggest bacterial infection, electrolytes did not explain her mental status, chest x-ray was okay, and there were no meningeal signs or significant complain of a headache, unless questioned. This overall situation might be from a viral infection and drug withdrawal. Encephalitis is always a possibility whenever patients have fever and encephalopathy. Formal tox screen is recommended and for now continuation of the treatment started last night is recommended. When stable, an MRI of brain might also shed light into her mental status both acute and chronic. Time Spent With Patient Time: Total time managing care of this patient today ____ minutes. Procedures Date of Service Date of Service: 07/25/22
--- NOTE | 2022-07-25 09:04 | MHC.CM.PN ---
Patient is unavailable; CM spoke with Cousin/PCP/Leora @ [phone] and addressed IMM with her (original will be mailed certified letter to Cousin and a copy has been placed on the chart). Patient lives alone in an apartmebt and she receives [employer] hours per week and a CCA/RN visit Q 6 months. Home/resume said services is the goal and CM has initiated and will follow for dc planning. Patient has received [facility]/[employer] vax x3 and her PCP is Dr. Karishma Urbano.
[2022-07-25 09:06] LABS: Glucose, Whole Blood 132 mg/dL (60-115)
--- NOTE | 2022-07-25 10:13 | HO.PM.IMPN ---
Subjective Subjective Date of Service: 07/25/22 Interval History: Seen and evaluated this morning More alert and interactive but still restless in bed Had fever overnight coughing more this morning required restraints and IV meds to control her restlessness, doing better this morning No other overnight events Review of Systems Review of Systems: Yes all other systems are reviewed and are negative Physical Exam Vital Signs: Vital Signs: Last Vital Signs Temp 97.1 F 07/25/22 08:03 Pulse 88 07/25/22 07:06 Resp 20 07/25/22 07:06 BP 118/58 L 07/25/22 07:06 Pulse Ox 92 07/25/22 07:06 O2 Del Method Room Air 07/25/22 07:06 BMI result Body Mass Index 31.8 Const: Other: Constitutional : Awake, interactive, restless Neck : Normal inspection, Supple Cardiovascular : irregular irregular, no JVP, no lower extremity edema Respiratory : good bilateral air entry, no crackles, wheezes or rhonchi Gastrointestinal: soft, lax, Normal bowel sounds, Non tender Skin : Warm, Dry Neurological : Alert & oriented, No focal deficit , restless mainly lower extremities, speech coherent, CN 2-12 within normal Objective Data Active Medications Acetaminophen (Acetaminophen 325 Mg Tablet) 650 mg PO Q6H PRN PRN Reason: Pain, Mild (Pain Scale 1-3) Acetaminophen (Acetaminophen Supp 650 Mg Supp.Rect) 650 mg IN Q6H PRN PRN Reason: Fever Last Admin: 07/24/22 23:24 Dose: 650 mg Documented By: STEVE Albuterol Sulfate (Albuterol Sulfate 90 Mcg 8 Gm Inhaler) 2 puff INHALE Q4H PRN PRN Reason: dyspnea Atorvastatin Calcium (Atorvastatin Calcium 20 Mg Tablet) 20 mg PO BEDTIME [facility] Last Admin: 07/24/22 20:17 Dose: 20 mg Documented By: STEVE Clonazepam (Clonazepam 0.125 Mg Tab.Rapdis) 0.125 mg PO BEDTIME MRX1 PRN PRN Reason: Restless Leg(S) Last Admin: 07/25/22 08:34 Dose: 0.125 mg Documented By: MENDOZA Docusate Sodium (Docusate Sodium 100 Mg Capsule) 100 mg PO DAILY PRN PRN Reason: Constipation Ezetimibe (Ezetimibe 10 Mg Tablet) 10 mg PO DAILY [facility] Last Admin: 07/25/22 08:34 Dose: 10 mg Documented By: MENDOZA Enoxaparin Sodium (Enoxaparin Sodium 80 Mg/0.8 Ml Syringe) 70 mg SUBCUT Q12H [facility] Fluticasone/Vilanterol (Fluticasone/Vilanterol 200/25 Blst.W.Dev) 1 puff INHALE RDAILY [facility] Furosemide (Furosemide 20 Mg Tablet) 20 mg PO DAILY [facility]; Protocol Last Admin: 07/25/22 08:34 Dose: 20 mg Documented By: MENDOZA Gabapentin (Gabapentin 300 Mg Capsule) 300 mg PO BID [facility] Last Admin: 07/25/22 08:34 Dose: 300 mg Documented By: MENDOZA Glucose (Glucose Gel 15 Gm Gel..Gram.) 15 gm PO Q15M PRN; Protocol PRN Reason: per Hypoglycemia Standing Ord. Diltiazem HCl 125 mg/ Sodium (Chloride) 125 mls @ 0 mls/hr IVCONT .Q0M [facility]; Protocol Last Admin: 07/25/22 08:13 Dose: 10 mg/hr, 10 mls/hr Documented By: MENDOZA Dextrose (D10) 250 mls @ 750 mls/hr IV Q15M PRN; Protocol PRN Reason: per Hypoglycemia Standing Ord. Piperacillin Sod/Tazobactam (Sod 3.375 gm/ Sodium Chloride) 50 mls @ 100 mls/hr IV Q6H [facility] Last Infusion: 07/25/22 05:25 Dose: 0 mls/hr Documented By: STEVE Vancomycin HCl 500 mg/ Sodium (Chloride) 110 mls @ 110 mls/hr IV Q8H [facility] Insulin Human Lispro (Insulin Lispro 100 Unit/Ml 3 Ml Vial) 0 unit SUBCUT QIDACHS [facility]; Protocol Last Admin: 07/25/22 07:15 Dose: Not Given Documented By: STACI Non-Admin Reason: low blood sugar Levothyroxine Sodium (Levothyroxine Sodium 112 Mcg Tablet) 112 mcg PO DAILY@0600 [facility] Last Admin: 07/25/22 07:15 Dose: Not Given Documented By: STEVE Non-Admin Reason: NPO Levothyroxine Sodium (Levothyroxine Sodium 25 Mcg Tablet) 25 mcg PO DAILY@0600 [facility] Last Admin: 07/25/22 07:15 Dose: Not Given Documented By: STEVE Non-Admin Reason: NPO Montelukast Sodium (Montelukast Sodium 10 Mg Tablet) 10 mg PO BEDTIME [facility] Last Admin: 07/24/22 20:17 Dose: 10 mg Documented By: STEVE Omeprazole (Omeprazole 20 Mg Capsule.Dr) 20 mg PO DAILY@0630 [facility] Last Admin: 07/25/22 07:16 Dose: Not Given Documented By: STEVE Non-Admin Reason: NPO Ondansetron HCl (Ondansetron Hcl 4 Mg/2 Ml Vial) 4 mg IVPUSH Q8H PRN PRN Reason: Nausea and Vomiting Pharmacy Consult (Consult Rx Perform Med Rec) 1 each MISCELLANE ONCE PRN PRN Reason: Consult order Pharmacy Consult (Consult Rx Vancomycin Dosing) 1 each MISCELLANE DAILY PRN PRN Reason: Consult order Ropinirole HCl (Ropinirole Hcl 0.5 Mg Tablet) 0.5 mg PO BEDTIME [facility] Last Admin: 07/24/22 20:17 Dose: 0.5 mg Documented By: STEVE Sitagliptin Phosphate (Sitagliptin Phosphate 100 Mg Tablet) 100 mg PO DAILY [facility] Last Admin: 07/25/22 08:34 Dose: 100 mg Documented By: MENDOZA Sodium Chloride (0.9 % Sodium Chloride Flush 3 Ml Syringe) 3 ml IVFLUSH QSHIFT [facility] Last Admin: 07/25/22 07:17 Dose: Not Given Documented By: STACI Non-Admin Reason: IV Running Sucralfate (Sucralfate Oral Suspension 1 Gm/10 Ml Oral.Susp) 1 gm PO BID@1200,2100 PRN PRN Reason: GERD Tramadol HCl (Tramadol Hcl 50 Mg Tablet) 50 mg PO Q12H PRN PRN Reason: severe pain Last Admin: 07/25/22 08:34 Dose: 50 mg Documented By: MENDOZA Vitamin D (Cholecalciferol (Vitamin D3) 25 Mcg Tablet) 50 mcg PO DAILY [facility] Last Admin: 07/25/22 08:34 Dose: 50 mcg Documented By: MENDOZA Labs 07/25/22 03:47 07/25/22 03:47 Labs: Laboratory Results - last 24 hr 07/24/22 07/24/22 07/24/22 06:37 17:08 17:08 MCV MCH MCHC RDW Plt Count MPV Immature Gran % (Auto) Neut % (Auto) Lymph % (Auto) Patrick % (Auto) Eos % (Auto) Baso % (Auto) Lymph # (Auto) Patrick # (Auto) Eos # (Auto) Baso # (Auto) Abs Immat Gran (auto) Absolute Neuts (auto) Absolute Nucleated RBC Nucleated RBC % (auto) O2 Saturation ABG pH at Pt Temp ABG pCO2 at Pt Temp ABG pO2 at Pt Temp ABG HCO3 ABG Base Excess (Actual) Anion Gap Estim Creat Clear Calc Estimated GFR POC Glucose Random Glucose Lactic Acid Calcium Magnesium 1.9 Iron 80 TIBC 342 % Saturation 23 Unsat Iron Binding 262 Ammonia TSH 1.73 Respiratory Panel [place] See Note Adenovirus (Rapid PCR) Not Detected B.pert (TEM-PCR) Not Detected B.parapertussis DNA PCR Not Detected C. pneumoniae DNA (PCR) Not Detected Coronavirus OC43 (PCR) Not Detected Coronavirus HKU1 (PCR) Not Detected Coronavirus 229E (PCR) Not Detected Coronavirus NL63 (PCR) Not Detected Human Metapneumovir PCR Not Detected Influenza A (RT-PCR) Not Detected Influenza Type A (PCR) NEGATIVE Influenza B (RT-PCR) Not Detected Influenza Type B (PCR) NEGATIVE M. pneumoniae (PCR) Not Detected Parainfluenza 1 (PCR) Not Detected Parainfluenza 2 (PCR) Not Detected Parainfluenza 3 (PCR) Not Detected Parainfluenza 4 (PCR) Not Detected RSV (PCR) Not Detected RSV RNA Qual (PCR) NEGATIVE Entero/Rhino (PCR) Not Detected SARS-CoV-2 RNA (RT-PCR) NEGATIVE Not Detected 07/24/22 07/24/22 07/24/22 17:14 17:29 17:29 MCV MCH MCHC RDW Plt Count MPV Immature Gran % (Auto) Neut % (Auto) Lymph % (Auto) Patrick % (Auto) Eos % (Auto) Baso % (Auto) Lymph # (Auto) Patrick # (Auto) Eos # (Auto) Baso # (Auto) Abs Immat Gran (auto) Absolute Neuts (auto) Absolute Nucleated RBC Nucleated RBC % (auto) O2 Saturation ABG pH at Pt Temp ABG pCO2 at Pt Temp ABG pO2 at Pt Temp ABG HCO3 ABG Base Excess (Actual) Anion Gap Estim Creat Clear Calc Estimated GFR POC Glucose 118 H Random Glucose Lactic Acid 1.5 Calcium Magnesium Iron TIBC % Saturation Unsat Iron Binding Ammonia 24 TSH Respiratory Panel [place] Adenovirus (Rapid PCR) B.pert (TEM-PCR) B.parapertussis DNA PCR C. pneumoniae DNA (PCR) Coronavirus OC43 (PCR) Coronavirus HKU1 (PCR) Coronavirus 229E (PCR) Coronavirus NL63 (PCR) Human Metapneumovir PCR Influenza A (RT-PCR) Influenza Type A (PCR) Influenza B (RT-PCR) Influenza Type B (PCR) M. pneumoniae (PCR) Parainfluenza 1 (PCR) Parainfluenza 2 (PCR) Parainfluenza 3 (PCR) Parainfluenza 4 (PCR) RSV (PCR) RSV RNA Qual (PCR) Entero/Rhino (PCR) SARS-CoV-2 RNA (RT-PCR) 07/24/22 07/24/22 07/25/22 19:31 20:30 00:06 MCV 84.6 MCH 28.6 MCHC 33.8 RDW 13.7 Plt Count 231 MPV 10.5 Immature Gran % (Auto) 0.4 Neut % (Auto) 76.2 H Lymph % (Auto) 12.4 L Patrick % (Auto) 10.0 Eos % (Auto) 0.4 Baso % (Auto) 0.6 Lymph # (Auto) 1.2 Patrick # (Auto) 1.0 Eos # (Auto) 0.0 Baso # (Auto) 0.1 Abs Immat Gran (auto) 0.04 H Absolute Neuts (auto) 7.6 Absolute Nucleated RBC 0.000 Nucleated RBC % (auto) 0.0 O2 Saturation 94.0 ABG pH at Pt Temp 7.54 H ABG pCO2 at Pt Temp 37 ABG pO2 at Pt Temp 72 L ABG HCO3 31 H ABG Base Excess (Actual) 8.8 Anion Gap Estim Creat Clear Calc Estimated GFR POC Glucose 159 H Random Glucose Lactic Acid Calcium Magnesium Iron TIBC % Saturation Unsat Iron Binding Ammonia TSH Respiratory Panel [place] Adenovirus (Rapid PCR) B.pert (TEM-PCR) B.parapertussis DNA PCR C. pneumoniae DNA (PCR) Coronavirus OC43 (PCR) Coronavirus HKU1 (PCR) Coronavirus 229E (PCR) Coronavirus NL63 (PCR) Human Metapneumovir PCR Influenza A (RT-PCR) Influenza Type A (PCR) Influenza B (RT-PCR) Influenza Type B (PCR) M. pneumoniae (PCR) Parainfluenza 1 (PCR) Parainfluenza 2 (PCR) Parainfluenza 3 (PCR) Parainfluenza 4 (PCR) RSV (PCR) RSV RNA Qual (PCR) Entero/Rhino (PCR) SARS-CoV-2 RNA (RT-PCR) 07/25/22 07/25/22 07/25/22 00:13 02:25 03:47 MCV 85.7 MCH 29.6 MCHC 34.5 RDW 13.7 Plt Count 208 MPV 10.7 Immature Gran % (Auto) Neut % (Auto) Lymph % (Auto) Patrick % (Auto) Eos % (Auto) Baso % (Auto) Lymph # (Auto) Patrick # (Auto) Eos # (Auto) Baso # (Auto) Abs Immat Gran (auto) Absolute Neuts (auto) Absolute Nucleated RBC 0.000 Nucleated RBC % (auto) 0.0 O2 Saturation ABG pH at Pt Temp ABG pCO2 at Pt Temp ABG pO2 at Pt Temp ABG HCO3 ABG Base Excess (Actual) Anion Gap Estim Creat Clear Calc Estimated GFR POC Glucose 150 H Random Glucose Lactic Acid 1.2 Calcium Magnesium Iron TIBC % Saturation Unsat Iron Binding Ammonia TSH Respiratory Panel [place] Adenovirus (Rapid PCR) B.pert (TEM-PCR) B.parapertussis DNA PCR C. pneumoniae DNA (PCR) Coronavirus OC43 (PCR) Coronavirus HKU1 (PCR) Coronavirus 229E (PCR) Coronavirus NL63 (PCR) Human Metapneumovir PCR Influenza A (RT-PCR) Influenza Type A (PCR) Influenza B (RT-PCR) Influenza Type B (PCR) M. pneumoniae (PCR) Parainfluenza 1 (PCR) Parainfluenza 2 (PCR) Parainfluenza 3 (PCR) Parainfluenza 4 (PCR) RSV (PCR) RSV RNA Qual (PCR) Entero/Rhino (PCR) SARS-CoV-2 RNA (RT-PCR) 07/25/22 07/25/2207/25/23 03:47 03:47 07:01 MCV MCH MCHC RDW Plt Count MPV Immature Gran % (Auto) Neut % (Auto) Lymph % (Auto) Patrick % (Auto) Eos % (Auto) Baso % (Auto) Lymph # (Auto) Patrick # (Auto) Eos # (Auto) Baso # (Auto) Abs Immat Gran (auto) Absolute Neuts (auto) Absolute Nucleated RBC Nucleated RBC % (auto) O2 Saturation ABG pH at Pt Temp ABG pCO2 at Pt Temp ABG pO2 at Pt Temp ABG HCO3 ABG Base Excess (Actual) Anion Gap 16 Estim Creat Clear Calc 61.5 Estimated GFR > 60 POC Glucose 143 H Random Glucose 140 H Lactic Acid 1.5 Calcium 9.2 Magnesium Iron TIBC % Saturation Unsat Iron Binding Ammonia TSH Respiratory Panel [place] Adenovirus (Rapid PCR) B.pert (TEM-PCR) B.parapertussis DNA PCR C. pneumoniae DNA (PCR) Coronavirus OC43 (PCR) Coronavirus HKU1 (PCR) Coronavirus 229E (PCR) Coronavirus NL63 (PCR) Human Metapneumovir PCR Influenza A (RT-PCR) Influenza Type A (PCR) Influenza B (RT-PCR) Influenza Type B (PCR) M. pneumoniae (PCR) Parainfluenza 1 (PCR) Parainfluenza 2 (PCR) Parainfluenza 3 (PCR) Parainfluenza 4 (PCR) RSV (PCR) RSV RNA Qual (PCR) Entero/Rhino (PCR) SARS-CoV-2 RNA (RT-PCR) 07/25/22 09:01 MCV MCH MCHC RDW Plt Count MPV Immature Gran % (Auto) Neut % (Auto) Lymph % (Auto) Patrick % (Auto) Eos % (Auto) Baso % (Auto) Lymph # (Auto) Patrick # (Auto) Eos # (Auto) Baso # (Auto) Abs Immat Gran (auto) Absolute Neuts (auto) Absolute Nucleated RBC Nucleated RBC % (auto) O2 Saturation ABG pH at Pt Temp ABG pCO2 at Pt Temp ABG pO2 at Pt Temp ABG HCO3 ABG Base Excess (Actual) Anion Gap Estim Creat Clear Calc Estimated GFR POC Glucose 132 H Random Glucose Lactic Acid Calcium Magnesium Iron TIBC % Saturation Unsat Iron Binding Ammonia TSH Respiratory Panel [place] Adenovirus (Rapid PCR) B.pert (TEM-PCR) B.parapertussis DNA PCR C. pneumoniae DNA (PCR) Coronavirus OC43 (PCR) Coronavirus HKU1 (PCR) Coronavirus 229E (PCR) Coronavirus NL63 (PCR) Human Metapneumovir PCR Influenza A (RT-PCR) Influenza Type A (PCR) Influenza B (RT-PCR) Influenza Type B (PCR) M. pneumoniae (PCR) Parainfluenza 1 (PCR) Parainfluenza 2 (PCR) Parainfluenza 3 (PCR) Parainfluenza 4 (PCR) RSV (PCR) RSV RNA Qual (PCR) Entero/Rhino (PCR) SARS-CoV-2 RNA (RT-PCR) Assessment and Plan (1) Encephalopathy: Status: Acute (2) Restless leg syndrome: Status: Acute (3) Atrial fibrillation with rapid ventricular response: Status: Acute (4) SIRS (systemic inflammatory response syndrome): Status: Acute Plan A 76 years old lady with PMH of Afib, DM, HTN, RLS among others who presents to the hospital with SOB and weakness. Fever , SIRS Up to 103 overnight no clear source of infection identified yet Empirical broad spectrum Abx of Vanco and Zosyn pending final cultures negative resp panel paroxysmal AFib with RVR rate better controlled on diltiazem drip Continue Xarelto Cardiology consult Monitor on telemetry Restless leg syndrome Patient currently very restless, difficulty staying in bed or lying still Continue gabapentin, clonazepam , tramadol p.r.n. normal iron studies check urine drug test Toxic encephalopathy reported overnight, responded to meds could be 2/2 fever, drugs, viral illness (encephalitis) supportive measures, reorientation get head CT Concern of cognitive decline Patient's primary contact noted patient has been experiencing mental decline for the past year with increased forgetfulness and weakness Patient has no formal diagnosis of dementia Patient lives alone, has some support but unclear how much, unclear how compliant patient is with medications PT consult Neurology input appreciated, consider MR brain when less restless to eval acute\chronic cause of congnitive decline HFpEF Does not appear to be in acute exacerbation Continue home furosemide 20 mg p.o. HTN Hold bisoprolol-hydrochlorothiazide, losartan for now, BP soft, pt on Cardizem drip Resume as indicated [id number] diabetes type 2 Hold metformin Continue Januvia Diabetic diet Sliding-scale insulin HLD Continue ezetimide COPD Not in acute exacerbation Continue home inhalers Full Code DVT Prophylaxis: On Lovenox pending final eval Pt will require a hospitalization of overnights for treatment of?AFib with RVR with diltiazem drip and specialist consult. Time Spent With Patient Time: Total time managing care of this patient today ____ minutes. Quality Stroke Does the patient have a stroke diagnosis?: No VTE Prior VTE?: No VTE Risk Level:: Medical - moderate - high VTE Device Contraindication: Treatment Not Indicated VTE Drug Contraindication: N/A - Med Ordered
[2022-07-25 11:14] LABS: Glucose, Whole Blood 145 mg/dL (60-115)
[2022-07-25] MEDS: vancomycin HCL 500 MG in 0.9 % Sodium Chloride 100 ML 110 MG IV (11:31)
[2022-07-25 11:39] LABS: Amphetamine Screen Urine Not Detected (Not Detect); Barbiturates, Urine Not Detected (Not Detect); Benzodiazepines Screen Urine Not Detected (Not Detect); Cannabinoid Screen Urine Not Detected (Not Detect); Cocaine Screen Urine Not Detected (Not Detect); Fentanyl, urine Not Detected (Not Detect); Opiate Screen Urine Not Detected (Not Detect); Phencyclidine Screen Urine Not Detected (Not Detect)
--- NOTE | 2022-07-25 13:07 | P.CONCA_ITS ---
History of Present Illness History of Present Illness Date of Service: 07/25/22 Requesting physician: Joo Arango Consult reason: atrial fibrillation Chief complaint: Afib w/RVR Narrative: I was consulted to see Teresa in cardiology consultation today for management of atrial fibrillation. History obtained from the chart as patient is not able to provide any history. Patient was brought in to the hospital with being extremely rest less than with altered mental status. On admission she was noted to have atrial fibrillation rapid ventricular response and minimally elevated BNP. Cause of her altered mental status is unknown. Head CT was negative for acute intracranial process however it has been difficult to manage a but given that she has extremely rest last. No other further imaging has been obtained and lumbar puncture was content plated but not done as yet because of her intermittent restlessness and inability to control her movement. Patient has no focal neurologic findings. She does have fever with chills and mild leukocytosis. She is being treated with broad-spectrum antibiotics by the medicine team. Cardiology consult was sought because of atrial fibrillation rapid ventricular response. Her atrial fibrillation appears to be persistent. Further history is not available. There is no clear symptoms of chest pain. There is no clear findings of heart failure clinically. She has been started on Cardizem drip and heart rate has been better controlled. There is question about taking her medications at home from the chart as per her sister's history. Review of Systems Review of Systems: Yes Unobtainable due to mental status PMFSH Past Medical History Medical History Addiction, opium Arthritis Autoimmune thyroiditis Depression with anxiety Diabetes type 2, uncontrolled Dyslipidemia Essential hypertension Hypothyroidism (acquired) Obesity (BMI 30-39.9) Osteopenia Overweight (BMI 25.0-29.9) Vitamin D deficiency Family History Family History Father Diabetes Mother No problems noted. Son Substance use disorder Surgical History Surgical History History of radical hysterectomy Hx of arthroscopy of knee Hx of cataract surgery Social History Social History Household Members: None Housing: Condominium Do you presently have visiting nurse or other home services: Yes Unable to assess alcohol history related to: Unable to respond Alcohol intake: never Patient Tobacco Use Status: Former Tobacco user Smoked in Last 30 Days: No e-Cigarette/Vaping Use: Never Used Patient Interested in Nicotine Replacement: No Patient Given Instructions on How to Stop Smoking: No Second Hand Smoke Exposure: No Use of substances other than those prescribed or required for medical reasons: Unknown Currently Displaying Signs/Symptoms of Drug Intoxication Withdrawal: No Advance Directives: No Advance Directives Information Provided: Yes Do you have thoughts of harming others: None Do you have a plan to hurt others: No Plan Recently lost weight without trying: Unsure Nutrition Risks: No Nutritional Risk Patient : No : No Poor oral hygiene: No service: No Current occupational status: retired Meds Allergies Allergy/AdvReac Type Severity Reaction Status Date / Time aspirin [ASPIRIN] Allergy Severe ANAPHYLAXIS Verified 07/09/22 13:37 Seasonal Allergies Allergy Intermediate asthma, Verified 07/09/22 13:37 itch, rash Active Medications: Current Medications Acetaminophen (Acetaminophen 325 Mg Tablet) 650 mg PO Q6H PRN PRN Reason: Pain, Mild (Pain Scale 1-3) Acetaminophen (Acetaminophen Supp 650 Mg Supp.Rect) 650 mg [place] Q6H PRN PRN Reason: Fever Last Admin: 07/24/22 23:24 Dose: 650 mg Albuterol Sulfate (Albuterol Sulfate 90 Mcg 8 Gm Inhaler) 2 puff INHALE Q4H PRN PRN Reason: dyspnea Atorvastatin Calcium (Atorvastatin Calcium 20 Mg Tablet) 20 mg PO BEDTIME [facility] Last Admin: 07/24/22 20:17 Dose: 20 mg Clonazepam (Clonazepam 0.125 Mg Tab.Rapdis) 0.125 mg PO BEDTIME MRX1 PRN PRN Reason: Restless Leg(S) Last Admin: 07/25/22 08:34 Dose: 0.125 mg Clonazepam (Clonazepam 0.125 Mg Tab.Rapdis) 0.25 mg PO TID [facility] Last Admin: 07/25/22 10:22 Dose: Not Given Docusate Sodium (Docusate Sodium 100 Mg Capsule) 100 mg PO DAILY PRN PRN Reason: Constipation Ezetimibe (Ezetimibe 10 Mg Tablet) 10 mg PO DAILY [facility] Last Admin: 07/25/22 08:34 Dose: 10 mg Enoxaparin Sodium (Enoxaparin Sodium 80 Mg/0.8 Ml Syringe) 70 mg SUBCUT Q12H [facility] Fluticasone/Vilanterol (Fluticasone/Vilanterol 200/25 Blst.W.Dev) 1 puff INHALE RDAILY [facility] Last Admin: 07/25/22 12:27 Dose: Not Given Furosemide (Furosemide 20 Mg Tablet) 20 mg PO DAILY [facility]; Protocol Last Admin: 07/25/22 08:34 Dose: 20 mg Gabapentin (Gabapentin 300 Mg Capsule) 300 mg PO BID [facility] Last Admin: 07/25/22 08:34 Dose: 300 mg Glucose (Glucose Gel 15 Gm Gel..Gram.) 15 gm PO Q15M PRN; Protocol PRN Reason: per Hypoglycemia Standing Ord. Diltiazem HCl 125 mg/ Sodium (Chloride) 125 mls @ 0 mls/hr IVCONT .Q0M [facility]; Protocol Last Admin: 07/25/22 08:13 Dose: 10 mg/hr, 10 mls/hr Dextrose (D10) 250 mls @ 750 mls/hr IV Q15M PRN; Protocol PRN Reason: per Hypoglycemia Standing Ord. Piperacillin Sod/Tazobactam (Sod 3.375 gm/ Sodium Chloride) 50 mls @ 100 mls/hr IV Q6H [facility] Last Infusion: 07/25/22 11:35 Dose: Infused Vancomycin HCl 500 mg/ Sodium (Chloride) 110 mls @ 110 mls/hr IV Q8H [facility] Last Infusion: 07/25/22 12:43 Dose: Infused Insulin Human Lispro (Insulin Lispro 100 Unit/Ml 3 Ml Vial) 0 unit SUBCUT QIDACHS [facility]; Protocol Last Admin: 07/25/22 11:53 Dose: Not Given Levothyroxine Sodium (Levothyroxine Sodium 112 Mcg Tablet) 112 mcg PO HAROON LY@0600 [facility] Last Admin: 07/25/22 07:15 Dose: Not Given Levothyroxine Sodium (Levothyroxine Sodium 25 Mcg Tablet) 25 mcg PO DAILY@0600 [facility] Last Admin: 07/25/22 07:15 Dose: Not Given Montelukast Sodium (Montelukast Sodium 10 Mg Tablet) 10 mg PO BEDTIME [facility] Last Admin: 07/24/22 20:17 Dose: 10 mg Omeprazole (Omeprazole 20 Mg Capsule.Dr) 20 mg PO DAILY@0630 [facility] Last Admin: 06/18/23 07:16 Dose: Not Given Ondansetron HCl (Ondansetron Hcl 4 Mg/2 Ml Vial) 4 mg IVPUSH Q8H PRN PRN Reason: Nausea and Vomiting Pharmacy Consult (Consult Rx Perform Med Rec) 1 each MISCELLANE ONCE PRN PRN Reason: Consult order Pharmacy Consult (Consult Rx Vancomycin Dosing) 1 each MISCELLANE DAILY PRN PRN Reason: Consult order Ropinirole HCl (Ropinirole Hcl 0.5 Mg Tablet) 0.5 mg PO BEDTIME [facility] Last Admin: 07/24/22 20:17 Dose: 0.5 mg Sitagliptin Phosphate (Sitagliptin Phosphate 100 Mg Tablet) 100 mg PO DAILY [facility] Last Admin: 07/25/22 08:34 Dose: 100 mg Sodium Chloride (0.9 % Sodium Chloride Flush 3 Ml Syringe) 3 ml IVFLUSH QSHIFT [facility] Last Admin: 07/25/22 07:17 Dose: Not Given Sucralfate (Sucralfate Oral Suspension 1 Gm/10 Ml Oral.Susp) 1 gm PO BID@1200,2100 PRN PRN Reason: GERD Tramadol HCl (Tramadol Hcl 50 Mg Tablet) 50 mg PO Q12H PRN PRN Reason: severe pain Last Admin: 07/25/22 08:34 Dose: 50 mg Vitamin D (Cholecalciferol (Vitamin D3) 25 Mcg Tablet) 50 mcg PO DAILY [facility] Last Admin: 07/25/22 08:34 Dose: 50 mcg Home Medications Medication Instructions Recorded Confirmed Last Taken Type blood sugar diagnostic #10 ea 11/23/19 06/17/22 Unknown History montelukast 10 mg tablet 10 mg PO BEDTIME 11/23/19 07/24/22 07/23/22 History bisoprolol 2.5 1 tab PO DAILY 06/19/21 07/24/22 07/23/22 History mg-hydrochlorothiazide 6.25 mg tablet ezetimibe 10 mg tablet 10 mg PO DAILY 06/17/22 07/24/22 07/23/22 History rivaroxaban 20 mg tablet (Xarelto) 20 mg PO DAILY@1800 06/17/22 07/24/22 07/23/22 History sitagliptin phosphate 100 mg tablet 100 mg PO DAILY 06/17/22 07/24/22 07/23/22 History albuterol sulfate 90 mcg/actuation 2 puff inhalation Q4-6H PRN dyspnea 07/24/22 07/24/22 07/23/22 History aerosol inhaler (Ventolin HFA) calcium citrate 315 mg-vitamin D3 2 tab PO DAILY 07/24/22 07/24/22 07/23/22 History 5 mcg (200 unit) tablet (Calcium Citrate + D) clonazepam 0.125 mg disintegrating 0.125 - 0.25 mg PO BEDTIME PRN 07/24/22 07/24/22 Unknown History tablet Restless Leg(S) fluticasone 500 mcg-salmeterol 50 1 ea PO DAILY 07/24/22 07/24/22 07/23/22 History mcg/dose blistr powdr for inhalation furosemide 20 mg tablet 20 mg PO DAILY 07/24/22 07/24/22 07/23/22 History gabapentin 300 mg capsule 300 mg PO BID 07/24/22 07/24/22 07/23/22 History levothyroxine 137 mcg tablet 137 mcg PO DAILY@0600 07/24/22 07/24/22 07/23/22 History losartan 25 mg tablet 25 mg PO BEDTIME 07/24/22 07/24/22 07/23/22 History metformin 500 mg tablet,extended 500 mg PO DAILY@1800 07/24/22 07/24/22 07/23/22 History release 24 hr omeprazole 20 mg capsule,delayed 20 mg PO DAILY@0630 07/24/22 07/24/22 07/23/22 History release rosuvastatin 5 mg tablet 5 mg PO BEDTIME 07/24/22 07/24/22 07/23/22 History sucralfate 100 mg/mL oral 10 ml PO BID@1200,2100 PRN GERD 07/24/22 07/24/22 07/23/22 History suspension tramadol 50 mg tablet 50 mg PO Q12H PRN severe pain 07/24/22 07/24/22 07/23/22 History Physical Exam Vital Signs: Vital Signs: Last Vital Signs Temp 99.8 F 07/25/22 11:35 Pulse 84 07/25/22 11:35 Resp 20 07/25/22 11:35 BP 132/72 07/25/22 11:35 Pulse Ox 99 07/25/22 11:35 O2 Del Method Room Air 07/25/22 11:35 BMI result Body Mass Index 31.8 Const: General: patient obtunded and other (Rest less) Nutritional Appearance: overweight Orientation/consciousness: patient obtunded HEENT: Head: Yes normocephalic and Yes atraumatic Neck: Neck: Yes trachea midline, Yes supple and Yes no JVD Resp: Effort & Inspection: decreased respiratory effort Auscultation: clear to auscultation bilaterally Cardio: Jugular venous distension: no JVD Rhythm: abnormal rhythm irregularly irregular Heart sounds: S1 normal heart sound present, S2 normal heart sound present, no click, no gallops, no murmurs and no rubs GI: Auscultation: normal bowel sounds Skin: General skin exam: no rashes or lesions noted Neuro: General: moves all extremities and patient obtunded Objective Labs and Meds 07/25/22 03:47 07/25/22 03:47 Lab results: Laboratory Results - last 24 hr 07/24/22 07/24/22 07/24/22 17:08 17:08 17:14 WBC RBC Hgb Hct MCV MCH MCHC RDW Plt Count MPV Immature Gran % (Auto) Neut % (Auto) Lymph % (Auto) Overton % (Auto) Eos % (Auto) Baso % (Auto) Lymph # (Auto) Overton # (Auto) Eos # (Auto) Baso # (Auto) Abs Immat Gran (auto) Absolute Neuts (auto) Absolute Nucleated RBC Nucleated RBC % (auto) O2 Saturation ABG pH at Pt Temp ABG pCO2 at Pt Temp ABG pO2 at Pt Temp ABG HCO3 ABG Base Excess (Actual) Sodium Potassium Chloride Carbon Dioxide Anion Gap BUN Creatinine Estim Creat Clear Calc Estimated GFR POC Glucose 118 H Random Glucose Lactic Acid Calcium Ammonia Urine Opiates Screen Urine Fentanyl Screen Ur Barbiturates Screen Ur Phencyclidine Scrn Ur Amphetamines Screen U Benzodiazepines Scrn Urine Cocaine Screen U Marijuana (THC) Screen Respiratory Panel Castro See Note Adenovirus (Rapid PCR) Not Detected B.pert (TEM-PCR) Not Detected B.parapertussis DNA PCR Not Detected C. pneumoniae DNA (PCR) Not Detected Coronavirus OC43 (PCR) Not Detected Coronavirus HKU1 (PCR) Not Detected Coronavirus 229E (PCR) Not Detected Coronavirus NL63 (PCR) Not Detected Human Metapneumovir PCR Not Detected Influenza A (RT-PCR) Not Detected Influenza Type A (PCR) NEGATIVE Influenza B (RT-PCR) Not Detected Influenza Type B (PCR) NEGATIVE M. pneumoniae (PCR) Not Detected Parainfluenza 1 (PCR) Not Detected Parainfluenza 2 (PCR) Not Detected Parainfluenza 3 (PCR) Not Detected Parainfluenza 4 (PCR) Not Detected RSV (PCR) Not Detected RSV RNA Qual (PCR) NEGATIVE Entero/Rhino (PCR) Not Detected SARS-CoV-2 RNA (RT-PCR) NEGATIVE Not Detected 07/24/22 07/24/22 07/24/22 17:29 17:29 19:31 WBC 10.0 RBC 4.75 Hgb 13.6 Hct 40.2 MCV 84.6 MCH 28.6 MCHC 33.8 RDW 13.7 Plt Count 231 MPV 10.5 Immature Gran % (Auto) 0.4 Neut % (Auto) 76.2 H Lymph % (Auto) 12.4 L Overton % (Auto) 10.0 Eos % (Auto) 0.4 Baso % (Auto) 0.6 Lymph # (Auto) 1.2 Overton # (Auto) 1.0 Eos # (Auto) 0.0 Baso # (Auto) 0.1 Abs Immat Gran (auto) 0.04 H Absolute Neuts (auto) 7.6 Absolute Nucleated RBC 0.000 Nucleated RBC % (auto) 0.0 O2 Saturation ABG pH at Pt Temp ABG pCO2 at Pt Temp ABG pO2 at Pt Temp ABG HCO3 ABG Base Excess (Actual) Sodium Potassium Chloride Carbon Dioxide Anion Gap BUN Creatinine Estim Creat Clear Calc Estimated GFR POC Glucose Random Glucose Lactic Acid 1.5 Calcium Ammonia 24 Urine Opiates Screen Urine Fentanyl Screen Ur Barbiturates Screen Ur Phencyclidine Scrn Ur Amphetamines Screen U Benzodiazepines Scrn Urine Cocaine Screen U Marijuana (THC) Screen Respiratory Panel Castro Adenovirus (Rapid PCR) B.pert (TEM-PCR) B.parapertussis DNA PCR C. pneumoniae DNA (PCR) Coronavirus OC43 (PCR) Coronavirus HKU1 (PCR) Coronavirus 229E (PCR) Coronavirus NL63 (PCR) Human Metapneumovir PCR Influenza A (RT-PCR) Influenza Type A (PCR) Influenza B (RT-PCR) Influenza Type B (PCR) M. pneumoniae (PCR) Parainfluenza 1 (PCR) Parainfluenza 2 (PCR) Parainfluenza 3 (PCR) Parainfluenza 4 (PCR) RSV (PCR) RSV RNA Qual (PCR) Entero/Rhino (PCR) SARS-CoV-2 RNA (RT-PCR) 07/24/22 07/25/22 07/25/22 20:30 00:06 00:13 WBC RBC Hgb Hct MCV MCH MCHC RDW Plt Count MPV Immature Gran % (Auto) Neut % (Auto) Lymph % (Auto) Overton % (Auto) Eos % (Auto) Baso % (Auto) Lymph # (Auto) Overton # (Auto) Eos # (Auto) Baso # (Auto) Abs Immat Gran (auto) Absolute Neuts (auto) Absolute Nucleated RBC Nucleated RBC % (auto) O2 Saturation 94.0 ABG pH at Pt Temp 7.54 H ABG pCO2 at Pt Temp 37 ABG pO2 at Pt Temp 72 L ABG HCO3 31 H ABG Base Excess (Actual) 8.8 Sodium Potassium Chloride Carbon Dioxide Anion Gap BUN Creatinine Estim Creat Clear Calc Estimated GFR POC Glucose 159 H Random Glucose Lactic Acid 1.2 Calcium Ammonia Urine Opiates Screen Urine Fentanyl Screen Ur Barbiturates Screen Ur Phencyclidine Scrn Ur Amphetamines Screen U Benzodiazepines Scrn Urine Cocaine Screen U Marijuana (THC) Screen Respiratory Panel Castro Adenovirus (Rapid PCR) B.pert (TEM-PCR) B.parapertussis DNA PCR C. pneumoniae DNA (PCR) Coronavirus OC43 (PCR) Coronavirus HKU1 (PCR) Coronavirus 229E (PCR) Coronavirus NL63 (PCR) Human Metapneumovir PCR Influenza A (RT-PCR) Influenza Type A (PCR) Influenza B (RT-PCR) Influenza Type B (PCR) M. pneumoniae (PCR) Parainfluenza 1 (PCR) Parainfluenza 2 (PCR) Parainfluenza 3 (PCR) Parainfluenza 4 (PCR) RSV (PCR) RSV RNA Qual (PCR) Entero/Rhino (PCR) SARS-CoV-2 RNA (RT-PCR) 07/25/22 07/25/22 07/25/22 02:25 03:47 03:47 WBC 10.7 RBC 4.83 Hgb 14.3 Hct 41.4 MCV 85.7 MCH 29.6 MCHC 34.5 RDW 13.7 Plt Count 208 MPV 10.7 Immature Gran % (Auto) Neut % (Auto) Lymph % (Auto) Overton % (Auto) Eos % (Auto) Baso % (Auto) Lymph # (Auto) Overton # (Auto) Eos # (Auto) Baso # (Auto) Abs Immat Gran (auto) Absolute Neuts (auto) Absolute Nucleated RBC 0.000 Nucleated RBC % (auto) 0.0 O2 Saturation ABG pH at Pt Temp ABG pCO2 at Pt Temp ABG pO2 at Pt Temp ABG HCO3 ABG Base Excess (Actual) Sodium 136 Potassium 3.3 Chloride 100 Carbon Dioxide 23 Anion Gap 16 BUN 11 Creatinine 0.75 Estim Creat Clear Calc 61.5 Estimated GFR > 60 POC Glucose 150 H Random Glucose 140 H Lactic Acid Calcium 9.2 Ammonia Urine Opiates Screen Urine Fentanyl Screen Ur Barbiturates Screen Ur Phencyclidine Scrn Ur Amphetamines Screen U Benzodiazepines Scrn Urine Cocaine Screen U Marijuana (THC) Screen Respiratory Panel Castro Adenovirus (Rapid PCR) B.pert (TEM-PCR) B.parapertussis DNA PCR C. pneumoniae DNA (PCR) Coronavirus OC43 (PCR) Coronavirus HKU1 (PCR) Coronavirus 229E (PCR) Coronavirus NL63 (PCR) Human Metapneumovir PCR Influenza A (RT-PCR) Influenza Type A (PCR) Influenza B (RT-PCR) Influenza Type B (PCR) M. pneumoniae (PCR) Parainfluenza 1 (PCR) Parainfluenza 2 (PCR) Parainfluenza 3 (PCR) Parainfluenza 4 (PCR) RSV (PCR) RSV RNA Qual (PCR) Entero/Rhino (PCR) SARS-CoV-2 RNA (RT-PCR) 07/25/22 07/25/22 07/25/22 03:47 07:01 09:01 WBC RBC Hgb Hct MCV MCH MCHC RDW Plt Count MPV Immature Gran % (Auto) Neut % (Auto) Lymph % (Auto) Overton % (Auto) Eos % (Auto) Baso % (Auto) Lymph # (Auto) Overton # (Auto) Eos # (Auto) Baso # (Auto) Abs Immat Gran (auto) Absolute Neuts (auto) Absolute Nucleated RBC Nucleated RBC % (auto) O2 Saturation ABG pH at Pt Temp ABG pCO2 at Pt Temp ABG pO2 at Pt Temp ABG HCO3 ABG Base Excess (Actual) Sodium Potassium Chloride Carbon Dioxide Anion Gap BUN Creatinine Estim Creat Clear Calc Estimated GFR POC Glucose 143 H 132 H Random Glucose Lactic Acid 1.5 Calcium Ammonia Urine Opiates Screen Urine Fentanyl Screen Ur Barbiturates Screen Ur Phencyclidine Scrn Ur Amphetamines Screen U Benzodiazepines Scrn Urine Cocaine Screen U Marijuana (THC) Screen Respiratory Panel [place] Adenovirus (Rapid PCR) B.pert (TEM-PCR) B.parapertussis DNA PCR C. pneumoniae DNA (PCR) Coronavirus OC43 (PCR) Coronavirus HKU1 (PCR) Coronavirus 229E (PCR) Coronavirus NL63 (PCR) Human Metapneumovir PCR Influenza A (RT-PCR) Influenza Type A (PCR) Influenza B (RT-PCR) Influenza Type B (PCR) M. pneumoniae (PCR) Parainfluenza 1 (PCR) Parainfluenza 2 (PCR) Parainfluenza 3 (PCR) Parainfluenza 4 (PCR) RSV (PCR) RSV RNA Qual (PCR) Entero/Rhino (PCR) SARS-CoV-2 RNA (RT-PCR) 07/25/22 07/25/22 11:04 11:15 WBC RBC Hgb Hct MCV MCH MCHC RDW Plt Count MPV Immature Gran % (Auto) Neut % (Auto) Lymph % (Auto) Overton % (Auto) Eos % (Auto) Baso % (Auto) Lymph # (Auto) Overton # (Auto) Eos # (Auto) Baso # (Auto) Abs Immat Gran (auto) Absolute Neuts (auto) Absolute Nucleated RBC Nucleated RBC % (auto) O2 Saturation ABG pH at Pt Temp ABG pCO2 at Pt Temp ABG pO2 at Pt Temp ABG HCO3 ABG Base Excess (Actual) Sodium Potassium Chloride Carbon Dioxide Anion Gap BUN Creatinine Estim Creat Clear Calc Estimated GFR POC Glucose 145 H Random Glucose Lactic Acid Calcium Ammonia Urine Opiates Screen Not Detected Urine Fentanyl Screen Not Detected Ur Barbiturates Screen Not Detected Ur Phencyclidine Scrn Not Detected Ur Amphetamines Screen Not Detected U Benzodiazepines Scrn Not Detected Urine Cocaine Screen Not Detected U Marijuana (THC) Screen Not Detected Respiratory Panel [place] Adenovirus (Rapid PCR) B.pert (TEM-PCR) B.parapertussis DNA PCR C. pneumoniae DNA (PCR) Coronavirus OC43 (PCR) Coronavirus HKU1 (PCR) Coronavirus 229E (PCR) Coronavirus NL63 (PCR) Human Metapneumovir PCR Influenza A (RT-PCR) Influenza Type A (PCR) Influenza B (RT-PCR) Influenza Type B (PCR) M. pneumoniae (PCR) Parainfluenza 1 (PCR) Parainfluenza 2 (PCR) Parainfluenza 3 (PCR) Parainfluenza 4 (PCR) RSV (PCR) RSV RNA Qual (PCR) Entero/Rhino (PCR) SARS-CoV-2 RNA (RT-PCR) Imaging Radiologist's impression: Impressions Abdomen/Pelvis CT 07/25/22 09:52 IMPRESSION: Diffuse hepatic steatosis without focal lesion. Left basilar atelectasis and/or scarring No acute intra-abdominal process seen. Fleischner guidelines were followed. Head CT 07/25/22 09:52 IMPRESSION: No acute intracranial process seen. Assessment and Plan (1) Atrial fibrillation with rapid ventricular response: Status: Acute Patient persistent atrial fibrillation rapid ventricular response on admission most likely due to underlying medical issue. She has acute encephalopathy of unclear etiology with possible sepsis syndrome. At this point time the rate is better controlled with IV Cardizem. Will continue the same. She has normal LV systolic function the past. She has no overt signs of congestive heart failure at this point time. Once oral route is reestablish she can be restarted on oral rate control medications. She should be on oral anticoagulation therapy although I thing at this point time she is planned to have further procedures for her altered mental status including lumbar puncture which will need to be withheld as felt appropriate by the medicine team. Will sign of the case at this point time. Thank you for allowing me to partake in her care Time Spent With Patient Time: Total time managing care of this patient today ____ minutes. Procedures Date of Service Date of Service: 07/25/22
[2022-07-25] MEDS: Acetaminophen 325 MG TABLET 650 MG PO (13:53)
[2022-07-25] MEDS: Acyclovir Sodium 600 MG in 0.9 % Sodium Chloride 100 ML 112 MG IV ×2 (16:23→23:38)
[2022-07-25 16:35] LABS: Glucose, Whole Blood 126 mg/dL (60-115)
[2022-07-25 17:46] LABS: Vancomycin Trough 13.3 mcg/mL (10.0-20.0)
[2022-07-25 20:49] LABS: Glucose, Whole Blood 146 mg/dL (60-115)
[2022-07-25] MEDS: Atorvastatin Calcium 20 MG TABLET PO (20:55)
[2022-07-25] MEDS: Enoxaparin Sodium 80 MG/0.8 ML SYRINGE 70 MG SUBCUT (20:55)
[2022-07-25] MEDS: Montelukast Sodium 10 MG TABLET PO (20:56)
[2022-07-25] MEDS: rOPINIRole HCL 0.5 MG TABLET PO (20:56)
[2022-07-25] MEDS: vancomycin HCL 750 MG in 0.9 % Sodium Chloride 250 ML 265 MG IV (21:08)
[2022-07-25] MEDS: Metoprolol Tartrate 12.5 MG HALFTAB PO (22:38)
[2022-07-25] MEDS: guaiFENesin DM 100/10/5 ML 5 ML SYRUP PO (23:16)
[2022-07-26] VITALS (8 sets, daily range): BP systolic 121–157; BP diastolic 57–93; PULSE 51–134; RESP 17–20; TEMP 36.3–37.2; O2SAT 92–98
[2022-07-26] MEDS: Piperacillin Sodium/Tazobactam 3.375 GM in 0.9 % Sodium Chloride 50 ML IV ×3 (04:37→18:00)
[2022-07-26] MEDS: Omeprazole 20 MG CAPSULE.DR PO (04:58)
[2022-07-26] MEDS: Levothyroxine Sodium 25 MCG TABLET PO (04:58)
[2022-07-26] MEDS: Levothyroxine Sodium 112 MCG TABLET PO (04:59)
[2022-07-26] MEDS: guaiFENesin DM 100/10/5 ML 5 ML SYRUP PO ×3 (05:33→21:53)
[2022-07-26 05:48] LABS: Hematocrit 40.6 % (37.0-47.0); Hemoglobin 13.3 g/dl (12.0-16.0); Mean Corpuscular HGB Conc 32.8 g/dl (31.0-35.0); Mean Corpuscular Hemoglobin 28.2 pg (27.0-33.0); Mean Corpuscular Volume 86.2 fL (80.0-98.0); Mean Platelet Volume 10.6 fL (9.4-12.3); Platelet Count 216 X10*3/uL (160-400); Red Blood Count 4.71 X10*6/uL (4.20-5.50); Red Cell Distribution Width 13.8 % (11.0-16.0); White Blood Count 5.8 X10*3/uL (4.8-10.8)
[2022-07-26 05:59] LABS: Anion Gap 14 (12-20); Blood Urea Nitrogen 15 mg/dL (9-16); Calcium 8.8 mg/dL (8.4-10.2); Carbon Dioxide 23 mmol/L (22-29); Chloride 104 mmol/L (96-108); Creatinine Clr Calc Pharmacy 49.6; Estimated Glomerular Filt Rate 59; Glucose Random 144 mg/dL (60-115); Potassium 3.3 mmol/L (3.3-5.1); Sodium 138 mmol/L (135-145)
[2022-07-26 07:08] LABS: Glucose, Whole Blood 141 mg/dL (60-115)
[2022-07-26] MEDS: Enoxaparin Sodium 80 MG/0.8 ML SYRINGE 70 MG SUBCUT (07:47)
[2022-07-26] MEDS: Acyclovir Sodium 600 MG in 0.9 % Sodium Chloride 100 ML 112 MG IV ×2 (07:48→16:01)
[2022-07-26] MEDS: Metoprolol Tartrate 12.5 MG HALFTAB PO (07:49)
[2022-07-26] MEDS: SITagliptin Phosphate 100 MG TABLET PO (07:49)
[2022-07-26] MEDS: Furosemide 20 MG TABLET PO (07:49)
[2022-07-26] MEDS: Ezetimibe 10 MG TABLET PO (07:50)
[2022-07-26] MEDS: Cholecalciferol (Vitamin D3) 25 MCG TABLET 50 MCG PO (07:50)
[2022-07-26] MEDS: Gabapentin 300 MG CAPSULE PO (07:50)
[2022-07-26] MEDS: vancomycin HCL 750 MG in 0.9 % Sodium Chloride 250 ML 265 MG IV (09:06)
[2022-07-26] MEDS: 0.9 % Sodium Chloride Flush 3 ML SYRINGE IVFLUSH ×2 (09:06→16:23)
[2022-07-26 09:10] LABS: INTERNATIONAL NORM RATIO 1.2 (0.9-1.1); Prothrombin Time 13.6 SEC (10.0-13.1)
[2022-07-26 09:12] LABS: Partial Thromboplastin Time 24.8 SEC (26.0-36.4)
[2022-07-26 11:28] LABS: Glucose, Whole Blood 125 mg/dL (60-115)
--- NOTE | 2022-07-26 13:22 | PC.NURSE ---
Assumed care at 11AM. Patient alert/fatigued, and oriented. Patient with frequent croupy cough, robitussin with modest effect. Patient breathing easily on room air. Frequently up to BR to stool, patient reports incontinence with cough.
--- NOTE | 2022-07-26 14:18 | P.PNIM_ITS ---
Subjective Subjective Date of Service: 07/26/22 Interval History: Seen and evaluated this morning alert and interactive , more sleepy still restless in bed but less legs movement No fever overnight No other overnight events Review of Systems Review of Systems: Yes all other systems are reviewed and are negative Physical Exam Vital Signs: Vital Signs: Last Vital Signs Temp 97.3 F 07/26/22 11:48 Pulse 51 07/26/22 11:48 Resp 20 07/26/22 11:48 BP 131/79 07/26/22 11:48 Pulse Ox 98 07/26/22 11:48 O2 Del Method Room Air 07/26/22 11:48 BMI result Body Mass Index 31.8 Const: Other: Constitutional : Awake, interactive, restless Neck : Normal inspection, Supple Cardiovascular : irregular irregular, no JVP, no lower extremity edema Respiratory : good bilateral air entry, no crackles, wheezes or rhonchi Gastrointestinal: soft, lax, Normal bowel sounds, Non tender Skin : Warm, Dry Neurological : Alert & oriented, No focal deficit , restless mainly lower extremities, speech coherent Objective Data Active Medications Acetaminophen (Acetaminophen 325 Mg Tablet) 650 mg PO Q6H PRN PRN Reason: Pain, Mild (Pain Scale 1-3) Last Admin: 07/25/22 13:53 Dose: 650 mg Documented By: STACI Acetaminophen (Acetaminophen Supp 650 Mg Supp.Rect) 650 mg MT Q6H PRN PRN Reason: Fever Last Admin: 07/24/22 23:24 Dose: 650 mg Documented By: STEVE Albuterol Sulfate (Albuterol Sulfate 90 Mcg 8 Gm Inhaler) 2 puff INHALE Q4H PRN PRN Reason: dyspnea Atorvastatin Calcium (Atorvastatin Calcium 20 Mg Tablet) 20 mg PO BEDTIME RAMESH Last Admin: 07/25/22 20:55 Dose: 20 mg Documented By: STEVE Clonazepam (Clonazepam 0.125 Mg Tab.Rapdis) 0.125 mg PO BEDTIME MRX1 PRN PRN Reason: Restless Leg(S) Last Admin: 07/25/22 08:34 Dose: 0.125 mg Documented By: MENDOZA Clonazepam (Clonazepam 0.125 Mg Tab.Rapdis) 0.125 mg PO TID PRN PRN Reason: anxiety/restlessness Docusate Sodium (Docusate Sodium 100 Mg Capsule) 100 mg PO DAILY PRN PRN Reason: Constipation Ezetimibe (Ezetimibe 10 Mg Tablet) 10 mg PO DAILY [facility] Last Admin: 07/26/22 07:50 Dose: 10 mg Documented By: CHANDLER Enoxaparin Sodium (Enoxaparin Sodium 80 Mg/0.8 Ml Syringe) 70 mg SUBCUT Q12H [facility] Last Admin: 07/26/22 07:47 Dose: 70 mg Documented By: CHANDLER Fluticasone/Vilanterol (Fluticasone/Vilanterol 200/25 Blst.W.Dev) 1 puff INHALE RDAILY [facility] Last Admin: 07/26/22 13:21 Dose: Not Given Documented By: AUGIE Non-Admin Reason: Patient Refused Furosemide (Furosemide 20 Mg Tablet) 20 mg PO DAILY [facility]; Protocol Last Admin: 07/26/22 07:49 Dose: 20 mg Documented By: CHANDLER Gabapentin (Gabapentin 300 Mg Capsule) 300 mg PO BID [facility] Last Admin: 07/26/22 07:50 Dose: 300 mg Documented By: CHANDLER Glucose (Glucose Gel 15 Gm Gel..Gram.) 15 gm PO Q15M PRN; Protocol PRN Reason: per Hypoglycemia Standing Ord. Guaifenesin/Dextromethorphan (Guaifenesin Dm 100/10/5 Ml 5 Ml Syrup) 5 ml PO Q4H PRN PRN Reason: cough Last Admin: 07/26/22 05:33 Dose: 5 ml Documented By: STEVE Diltiazem HCl 125 mg/ Sodium (Chloride) 125 mls @ 0 mls/hr IVCONT .Q0M [facility]; Protocol Last Titration: 07/25/22 22:30 Dose: 0 mg/hr, 0 mls/hr Documented By: STEVE Dextrose (D10) 250 mls @ 750 mls/hr IV Q15M PRN; Protocol PRN Reason: per Hypoglycemia Standing Ord. Piperacillin Sod/Tazobactam (Sod 3.375 gm/ Sodium Chloride) 50 mls @ 100 mls/hr IV Q6H [facility] Last Infusion: 07/26/22 13:20 Dose: 0 mls/hr Documented By: AUGIE Acyclovir Sodium 600 mg/ (Sodium Chloride) 112 mls @ 112 mls/hr IV Q8H [facility] Last Infusion: 07/26/22 09:20 Dose: 0 mls/hr Documented By: CHANDLER Vancomycin HCl 750 mg/ Sodium (Chloride) 265 mls @ 265 mls/hr IV Q12H [facility] Last Infusion: 07/26/22 11:39 Dose: 0 mls/hr Documented By: CHANDLER Insulin Human Lispro (Insulin Lispro 100 Unit/Ml 3 Ml Vial) 0 unit SUBCUT QIDACHS [facility]; Protocol Last Admin: 07/26/22 11:40 Dose: Not Given Documented By: CHANDLER Non-Admin Reason: No Insulin Coverage Levothyroxine Sodium (Levothyroxine Sodium 112 Mcg Tablet) 112 mcg PO DAILY@0600 [facility] Last Admin: 07/26/22 04:59 Dose: 112 mcg Documented By: STEVE Levothyroxine Sodium (Levothyroxine Sodium 25 Mcg Tablet) 25 mcg PO DAILY@0600 [facility] Last Admin: 07/26/22 04:58 Dose: 25 mcg Documented By: STEVE Metoprolol Tartrate (Metoprolol Tartrate 12.5 Mg Halftab) 12.5 mg PO BID [facility]; Protocol Last Admin: 07/26/22 07:49 Dose: 12.5 mg Documented By: CHANDLER Montelukast Sodium (Montelukast Sodium 10 Mg Tablet) 10 mg PO BEDTIME [facility] Last Admin: 07/25/22 20:56 Dose: 10 mg Documented By: STEVE Omeprazole (Omeprazole 20 Mg Capsule.) 20 mg PO DAILY@0630 [facility] Last Admin: 07/26/22 04:58 Dose: 20 mg Documented By: STEVE Ondansetron HCl (Ondansetron Hcl 4 Mg/2 Ml Vial) 4 mg IVPUSH Q8H PRN PRN Reason: Nausea and Vomiting Pharmacy Consult (Consult Rx Perform Med Rec) 1 each MISCELLANE ONCE PRN PRN Reason: Consult order Pharmacy Consult (Consult Rx Vancomycin Dosing) 1 each MISCELLANE DAILY PRN PRN Reason: Consult order Ropinirole HCl (Ropinirole Hcl 0.5 Mg Tablet) 0.5 mg PO BEDTIME [facility] Last Admin: 07/25/22 20:56 Dose: 0.5 mg Documented By: STEVE Sitagliptin Phosphate (Sitagliptin Phosphate 100 Mg Tablet) 100 mg PO DAILY [facility] Last Admin: 07/26/22 07:49 Dose: 100 mg Documented By: CHANDLER Sodium Chloride (0.9 % Sodium Chloride Flush 3 Ml Syringe) 3 ml IVFLUSH QSHIFT [facility] Last Admin: 07/26/22 09:06 Dose: 3 ml Documented By: CHANDLER Sucralfate (Sucralfate Oral Suspension 1 Gm/10 Ml Oral.Susp) 1 gm PO BID@1200,2100 PRN PRN Reason: GERD Tramadol HCl (Tramadol Hcl 50 Mg Tablet) 50 mg PO Q12H PRN PRN Reason: severe pain Last Admin: 07/25/22 08:34 Dose: 50 mg Documented By: MENDOZA Vitamin D (Cholecalciferol (Vitamin D3) 25 Mcg Tablet) 50 mcg PO DAILY [facility] Last Admin: 07/26/22 07:50 Dose: 50 mcg Documented By: CHANDLER Labs 07/26/22 05:27 07/26/22 05:27 Labs: Laboratory Results - last 24 hr 07/25/22 07/25/22 07/25/22 16:32 17:16 20:45 MCV MCH MCHC RDW Plt Count MPV Absolute Nucleated RBC Nucleated RBC % (auto) PT INR APTT Anion Gap Estim Creat Clear Calc Estimated GFR POC Glucose 126 H 146 H Random Glucose Calcium Vancomycin Trough 13.3 07/26/22 07/26/22 07/26/22 05:27 05:27 07:04 MCV 86.2 MCH 28.2 MCHC 32.8 RDW 13.8 Plt Count 216 MPV 10.6 Absolute Nucleated RBC 0.000 Nucleated RBC % (auto) 0.0 PT INR APTT Anion Gap 14 Estim Creat Clear Calc 49.6 Estimated GFR 59 POC Glucose 141 H Random Glucose 144 H Calcium 8.8 Vancomycin Trough 07/26/22 07/26/22 08:04 11:22 MCV MCH MCHC RDW Plt Count MPV Absolute Nucleated RBC Nucleated RBC % (auto) PT 13.6 H INR 1.2 H APTT 24.8 L Anion Gap Estim Creat Clear Calc Estimated GFR POC Glucose 125 H Random Glucose Calcium Vancomycin Trough Microbiology Microbiology Results: Microbiology 07/25/22 03:47 Blood Culture - Preliminary Blood - Venous No growth after 24 hours. 07/25/22 03:47 Blood Culture - Preliminary Blood - Venous No growth after 24 hours. 07/24/22 17:29 Blood Culture - Preliminary Blood - Venous No growth after 24 hours. 07/24/22 17:29 Blood Culture - Preliminary Blood - Venous No growth after 24 hours. Assessment and Plan (1) SIRS (systemic inflammatory response syndrome): Status: Acute (2) Encephalopathy: Status: Acute (3) Restless leg syndrome: Status: Acute (4) Atrial fibrillation with rapid ventricular response: Status: Acute Plan A 76 years old lady with PMH of Afib, DM, HTN, RLS among others who presents to the hospital with SOB and weakness. Fever , SIRS No fever last 24 hours no clear source of infection identified yet, concern over possible encephalitis Empirical broad spectrum Abx of Acyclovir, Vanco and Zosyn pending final cultures negative resp panel and CT abd To do an LP, holding Xarelto for now ID consult paroxysmal AFib with RVR rate better controlled on diltiazem drip restart Bisoprolol today Change Xarelto with Lovenox Cardiology consult Monitor on telemetry Restless leg syndrome Patient currently very restless, difficulty staying in bed or lying still Continue gabapentin, clonazepam , tramadol p.r.n. normal iron studies check urine drug test Toxic encephalopathy could be 2/2 fever, drugs, viral illness (encephalitis) wax and wane supportive measures, reorientation negative head CT Concern of cognitive decline Patient's primary contact noted patient has been experiencing mental decline for the past year with increased forgetfulness and weakness Patient has no formal diagnosis of dementia Patient lives alone, has some support but unclear how much, unclear how compliant patient is with medications PT consult Neurology input appreciated, consider MR brain when less restless to eval acute\chronic cause of congnitive decline HFpEF Does not appear to be in acute exacerbation Continue home furosemide 20 mg p.o. HTN Hold bisoprolol-hydrochlorothiazide, losartan for now, BP soft, pt on Cardizem drip Resume as indicated Old-pqrjoei-eqilxfwdl diabetes type 2 Hold metformin Continue Januvia Diabetic diet Sliding-scale insulin HLD Continue ezetimide COPD Not in acute exacerbation Continue home inhalers Full Code DVT Prophylaxis: On Lovenox pending final eval Pt will require a hospitalization of overnights for treatment of?AFib with RVR with diltiazem drip and specialist consult. Pending LP and ID eval Time Spent With Patient Time: Total time managing care of this patient today ____ minutes. Quality Stroke Does the patient have a stroke diagnosis?: No VTE Prior VTE?: No VTE Risk Level:: Medical - moderate - high VTE Device Contraindication: Treatment Not Indicated VTE Drug Contraindication: N/A - Med Ordered
[2022-07-26 15:30] LABS: Glucose, Whole Blood 119 mg/dL (60-115)
--- NOTE | 2022-07-26 15:31 | W.PM.IDCN ---
History of Present Illness Data of Consult Service Date: 07/26/22 Requesting physician: Joo Arango Primary Care Provider: ASIF Kimble HPI Reason for consult: encephalopathy She presents with weakness and fatigue for a week. She hs sacral decubitus. She has encephalopathy. RVP is negative. She has no meningismus Review of Systems Review of Systems: Yes Unobtainable due to mental condition PMFSH Past Medical History Medical History Addiction, opium Arthritis Autoimmune thyroiditis Depression with anxiety Diabetes type 2, uncontrolled Dyslipidemia Essential hypertension Hypothyroidism (acquired) Obesity (BMI 30-39.9) Osteopenia Overweight (BMI 25.0-29.9) Vitamin D deficiency Family History Family History Father Diabetes Mother No problems noted. Son Substance use disorder Family history: reviewed and not pertinent Surgical History Surgical History History of radical hysterectomy Hx of arthroscopy of knee Hx of cataract surgery Social History Social History Household Members: None Housing: Condominium Do you presently have visiting nurse or other home services: Yes Unable to assess alcohol history related to: Unable to respond Alcohol intake: never Patient Tobacco Use Status: Former Tobacco user Smoked in Last 30 Days: No e-Cigarette/Vaping Use: Never Used Patient Interested in Nicotine Replacement: No Patient Given Instructions on How to Stop Smoking: No Second Hand Smoke Exposure: No Use of substances other than those prescribed or required for medical reasons: Unknown Currently Displaying Signs/Symptoms of Drug Intoxication Withdrawal: No Advance Directives: No Advance Directives Information Provided: Yes Do you have thoughts of harming others: None Do you have a plan to hurt others: No Plan Recently lost weight without trying: Unsure Nutrition Risks: No Nutritional Risk Patient : No : No Poor oral hygiene: No service: No Current occupational status: retired [employer] Allergies Allergy/AdvReac Type Severity Reaction Status Date / Time aspirin [ASPIRIN] Allergy Severe ANAPHYLAXIS Verified 07/09/22 13:37 Seasonal Allergies Allergy Intermediate asthma, Verified 07/09/22 13:37 itch, rash Active Medications: Current Medications Acetaminophen (Acetaminophen 325 Mg Tablet) 650 mg PO Q6H PRN PRN Reason: Pain, Mild (Pain Scale 1-3) Last Admin: 07/25/22 13:53 Dose: 650 mg Acetaminophen (Acetaminophen Supp 650 Mg Supp.Rect) 650 mg AL Q6H PRN PRN Reason: Fever Last Admin: 07/24/22 23:24 Dose: 650 mg Albuterol Sulfate (Albuterol Sulfate 90 Mcg 8 Gm Inhaler) 2 puff INHALE Q4H PRN PRN Reason: dyspnea Atorvastatin Calcium (Atorvastatin Calcium 20 Mg Tablet) 20 mg PO BEDTIME RAMESH Last Admin: 07/25/22 20:55 Dose: 20 mg Bisoprolol Fumarate (Bisoprolol Fumarate 5 Mg Tablet) 2.5 mg PO DAILY [facility] Clonazepam (Clonazepam 0.125 Mg Tab.Rapdis) 0.125 mg PO BEDTIME MRX1 PRN PRN Reason: Restless Leg(S) Last Admin: 07/25/22 08:34 Dose: 0.125 mg Clonazepam (Clonazepam 0.125 Mg Tab.Rapdis) 0.125 mg PO TID PRN PRN Reason: anxiety/restlessness Docusate Sodium (Docusate Sodium 100 Mg Capsule) 100 mg PO DAILY PRN PRN Reason: Constipation Ezetimibe (Ezetimibe 10 Mg Tablet) 10 mg PO DAILY [facility] Last Admin: 07/26/22 07:50 Dose: 10 mg Enoxaparin Sodium (Enoxaparin Sodium 80 Mg/0.8 Ml Syringe) 70 mg SUBCUT Q12H [facility] Last Admin: 07/26/22 07:47 Dose: 70 mg Fluticasone/Vilanterol (Fluticasone/Vilanterol 200/25 Blst.W.Dev) 1 puff INHALE RDAILY [facility] Last Admin: 07/26/22 13:21 Dose: Not Given Furosemide (Furosemide 20 Mg Tablet) 20 mg PO DAILY [facility]; Protocol Last Admin: 07/26/22 07:49 Dose: 20 mg Gabapentin (Gabapentin 300 Mg Capsule) 300 mg PO BID [facility] Last Admin: 07/26/22 07:50 Dose: 300 mg Glucose (Glucose Gel 15 Gm Gel..Gram.) 15 gm PO Q15M PRN; Protocol PRN Reason: per Hypoglycemia Standing Ord. Guaifenesin/Dextromethorphan (Guaifenesin Dm 100/10/5 Ml 5 Ml Syrup) 5 ml PO Q4H PRN PRN Reason: cough Last Admin: 07/26/22 05:33 Dose: 5 ml Diltiazem HCl 125 mg/ Sodium (Chloride) 125 mls @ 0 mls/hr IVCONT .Q0M [facility]; Protocol Last Titration: 07/25/22 22:30 Dose: Infused Dextrose (D10) 250 mls @ 750 mls/hr IV Q15M PRN; Protocol PRN Reason: per Hypoglycemia Standing Ord. Piperacillin Sod/Tazobactam (Sod 3.375 gm/ Sodium Chloride) 50 mls @ 100 mls/hr IV Q6H [facility] Last Infusion: 07/26/22 13:20 Dose: Infused Acyclovir Sodium 600 mg/ (Sodium Chloride) 112 mls @ 112 mls/hr IV Q8H [facility] Last Infusion: 07/26/22 09:20 Dose: Infused Vancomycin HCl 750 mg/ Sodium (Chloride) 265 mls @ 265 mls/hr IV Q12H [facility] Last Infusion: 07/26/22 11:39 Dose: Infused Lactated Ringer's (Lr) 1,000 mls @ 100 mls/hr IVCONT .Q10H [facility] Insulin Human Lispro (Insulin Lispro 100 Unit/Ml 3 Ml Vial) 0 unit SUBCUT QIDACHS [facility]; Protocol Last Admin: 07/26/22 11:40 Dose: Not Given Levothyroxine Sodium (Levothyroxine Sodium 112 Mcg Tablet) 112 mcg PO DAILY@0600 [facility] Last Admin: 07/26/22 04:59 Dose: 112 mcg Levothyroxine Sodium (Levothyroxine Sodium 25 Mcg Tablet) 25 mcg PO DAILY@0600 [facility] Last Admin: 07/26/22 04:58 Dose: 25 mcg Montelukast Sodium (Montelukast Sodium 10 Mg Tablet) 10 mg PO BEDTIME [facility] Last Admin: 07/25/22 20:56 Dose: 10 mg Omeprazole (Omeprazole 20 Mg Capsule.Dr) 20 mg PO DAILY@0630 [facility] Last Admin: 07/26/22 04:58 Dose: 20 mg Ondansetron HCl (Ondansetron Hcl 4 Mg/2 Ml Vial) 4 mg IVPUSH Q8H PRN PRN Reason: Nausea and Vomiting Pharmacy Consult (Consult Rx Perform Med Rec) 1 each MISCELLANE ONCE PRN PRN Reason: Consult order Pharmacy Consult (Consult Rx Vancomycin Dosing) 1 each MISCELLANE DAILY PRN PRN Reason: Consult order Ropinirole HCl (Ropinirole Hcl 0.5 Mg Tablet) 0.5 mg PO BEDTIME [facility] Last Admin: 07/25/22 20:56 Dose: 0.5 mg Sitagliptin Phosphate (Sitagliptin Phosphate 100 Mg Tablet) 100 mg PO DAILY [facility] Last Admin: 07/26/22 07:49 Dose: 100 mg Sodium Chloride (0.9 % Sodium Chloride Flush 3 Ml Syringe) 3 ml IVFLUSH QSHIFT [facility] Last Admin: 07/26/22 09:06 Dose: 3 ml Sucralfate (Sucralfate Oral Suspension 1 Gm/10 Ml Oral.Susp) 1 gm PO BID@1200,2100 PRN PRN Reason: GERD Tramadol HCl (Tramadol Hcl 50 Mg Tablet) 50 mg PO Q12H PRN PRN Reason: severe pain Last Admin: 07/25/22 08:34 Dose: 50 mg Vitamin D (Cholecalciferol (Vitamin D3) 25 Mcg Tablet) 50 mcg PO DAILY [facility] Last Admin: 07/26/22 07:50 Dose: 50 mcg Home Medications Medication Instructions Recorded Confirmed Last Taken Type blood sugar diagnostic #10 ea 11/23/19 06/17/22 Unknown History montelukast 10 mg tablet 10 mg PO BEDTIME 11/23/19 07/24/22 07/23/22 History bisoprolol 2.5 1 tab PO DAILY 06/19/21 07/24/22 07/23/22 History mg-hydrochlorothiazide 6.25 mg tablet ezetimibe 10 mg tablet 10 mg PO DAILY 06/17/22 07/24/22 07/23/22 History rivaroxaban 20 mg tablet (Xarelto) 20 mg PO DAILY@1800 06/17/22 07/24/22 07/23/22 History sitagliptin phosphate 100 mg tablet 100 mg PO DAILY 06/17/22 07/24/22 07/23/22 History albuterol sulfate 90 mcg/actuation 2 puff inhalation Q4-6H PRN dyspnea 07/24/22 07/24/22 07/23/22 History aerosol inhaler (Ventolin HFA) calcium citrate 315 mg-vitamin D3 2 tab PO DAILY 07/24/22 07/24/22 07/23/22 History 5 mcg (200 unit) tablet (Calcium Citrate + D) clonazepam 0.125 mg disintegrating 0.125 - 0.25 mg PO BEDTIME PRN 07/24/22 07/24/22 Unknown History tablet Restless Leg(S) fluticasone 500 mcg-salmeterol 50 1 ea PO DAILY 07/24/22 07/24/22 07/23/22 History mcg/dose blistr powdr for inhalation furosemide 20 mg tablet 20 mg PO DAILY 07/24/22 07/24/22 07/23/22 History gabapentin 300 mg capsule 300 mg PO BID 07/24/22 07/24/22 07/23/22 History levothyroxine 137 mcg tablet 137 mcg PO DAILY@0600 07/24/22 07/24/22 07/23/22 History losartan 25 mg tablet 25 mg PO BEDTIME 07/24/22 07/24/22 07/23/22 History metformin 500 mg tablet,extended 500 mg PO DAILY@1800 07/24/22 07/24/22 07/23/22 History release 24 hr omeprazole 20 mg capsule,delayed 20 mg PO DAILY@0630 07/24/22 07/24/22 07/23/22 History release rosuvastatin 5 mg tablet 5 mg PO BEDTIME 07/24/22 07/24/22 07/23/22 History sucralfate 100 mg/mL oral 10 ml PO BID@1200,2100 PRN GERD 07/24/22 07/24/22 07/23/22 History suspension tramadol 50 mg tablet 50 mg PO Q12H PRN severe pain 07/24/22 07/24/22 07/23/22 History Physical Exam Vital Signs: Vital Signs: Last Vital Signs Temp 97.3 F 07/26/22 11:48 Pulse 51 07/26/22 11:48 Resp 20 07/26/22 11:48 BP 131/79 07/26/22 11:48 Pulse Ox 98 07/26/22 11:48 O2 Del Method Room Air 07/26/22 11:48 BMI result Body Mass Index 31.8 Const: General: cooperative HEENT: Head: Yes normal to inspection Face and sinus: Yes normal facial exam Mouth: Normal oral and palatal mucosa present Teeth and gingiva: dentition normal Eyes: General: appearance normal, both eyes and all related structures Pupils: Equal, round and reactive pupils present Resp: Effort & Inspection: normal respiratory effort Cardio: Rate: regular rate Rhythm: regular rhythm GI: Palpation (GI): Soft to palpation and nontender : General: Yes no CVA tenderness Back/Spine/Pelvis: Back: no CVA tenderness Skin: General skin exam: no rashes or lesions noted Neuro: General: moves all extremities Cranial nerves: Yes Equal, round and reactive pupils present Extrem: General: Yes normal to inspection Psych: Other: confusion,no meningismus Results Labs 07/26/22 05:27 07/26/22 05:27 Labs: Short CBC 07/26/22 Range/Units 05:27 WBC 5.8 (4.8-10.8) X10*3/uL Hgb 13.3 (12.0-16.0) g/dl Hct 40.6 (37.0-47.0) % Plt Count 216 (160-400) X10*3/uL BMP 07/26/22 05:27 Sodium 138 Potassium 3.3 Chloride 104 Carbon Dioxide 23 BUN 15 Creatinine 0.93 Calcium 8.8 Microbiology Microbiology Results: Microbiology 07/25/22 03:47 Blood - Venous Blood Culture - Preliminary No growth after 24 hours. 07/25/22 03:47 Blood - Venous Blood Culture - Preliminary No growth after 24 hours. 07/24/22 17:29 Blood - Venous Blood Culture - Preliminary No growth after 24 hours. 07/24/22 17:29 Blood - Venous Blood Culture - Preliminary No growth after 24 hours. Assessment and Plan (1) Encephalopathy: Status: Acute Plan She has metabolic encephalopathy. There is no clinical evidence of meningitis. Possible medication related ?Scott Would check LP and send for cell count and diff Send meningitis/encephalitis panel. Consider MRI of brain if tolerated. Stop antibiotics and antivirals if tap negative. Time Spent With Patient Time: Total time managing care of this patient today ____ minutes.
[2022-07-26] MEDS: Lactated Ringers 1,000 ML 100 ML IVCONT (15:52)
[2022-07-26] MEDS: Bisoprolol Fumarate 5 MG TABLET 2.5 MG PO (15:53)
[2022-07-26 19:01] LABS: Vancomycin Random 11.7 mcg/mL (15-20)
--- NOTE | 2022-07-26 19:11 | HE.PHANOTE ---
Re: vanco dosing increasing dose due to falling levels. 1000 q12 with random level 07/27 @1800 to assess after 2 more doses.
[2022-07-26 20:30] LABS: Glucose, Whole Blood 125 mg/dL (60-115)
[2022-07-26] MEDS: vancomycin HCL 1,000 MG in 0.9 % Sodium Chloride 250 ML 270 MG IV (21:50)
[2022-07-26] MEDS: Montelukast Sodium 10 MG TABLET PO (21:53)
[2022-07-26] MEDS: Atorvastatin Calcium 20 MG TABLET PO (21:53)
[2022-07-26] MEDS: rOPINIRole HCL 0.5 MG TABLET PO (21:53)
[2022-07-27] MEDS: Piperacillin Sodium/Tazobactam 3.375 GM in 0.9 % Sodium Chloride 50 ML IV ×4 (00:12→21:35)
[2022-07-27] MEDS: 0.9 % Sodium Chloride Flush 3 ML SYRINGE IVFLUSH ×3 (00:21→17:38)
[2022-07-27] MEDS: Acyclovir Sodium 600 MG in 0.9 % Sodium Chloride 100 ML 112 MG IV ×3 (01:27→18:29)
[2022-07-27 03:11] VITALS: BP 135/81; PULSE 118; RESP 20; TEMP 37.2; O2SAT 92
[2022-07-27] MEDS: Acetaminophen 325 MG TABLET 650 MG PO (04:12)
[2022-07-27] MEDS: guaiFENesin DM 100/10/5 ML 5 ML SYRUP PO ×3 (04:13→21:34)
[2022-07-27 06:28] LABS: Creatinine Clr Calc Pharmacy 59.1; Estimated Glomerular Filt Rate > 60
[2022-07-27] MEDS: Lactated Ringers 1,000 ML 100 ML IVCONT (06:57)
[2022-07-27] MEDS: Omeprazole 20 MG CAPSULE.DR PO (07:00)
[2022-07-27] MEDS: Levothyroxine Sodium 25 MCG TABLET PO (07:00)
[2022-07-27] MEDS: Levothyroxine Sodium 112 MCG TABLET PO (07:00)
[2022-07-27 07:37] VITALS: BP 136/69; PULSE 104; RESP 20; TEMP 36.4; O2SAT 96
[2022-07-27 07:44] LABS: Glucose, Whole Blood 127 mg/dL (60-115)
[2022-07-27] MEDS: dilTIAZem HCL 30 MG TABLET PO ×3 (09:47→21:34)
[2022-07-27] MEDS: Cholecalciferol (Vitamin D3) 25 MCG TABLET 50 MCG PO (09:47)
[2022-07-27] MEDS: Gabapentin 300 MG CAPSULE PO ×2 (09:47→21:34)
[2022-07-27] MEDS: Ezetimibe 10 MG TABLET PO (09:47)
[2022-07-27] MEDS: Furosemide 20 MG TABLET PO (09:48)
[2022-07-27] MEDS: vancomycin HCL 1,000 MG in 0.9 % Sodium Chloride 250 ML 270 MG IV ×2 (10:00→23:10)
--- NOTE | 2022-07-27 10:28 | MHC.CM.PN ---
Per ROUNDS discussion, Patient is not yet medically cleared for dc (LP today, IV Acyclovir, 2 IV ABT); PT is recommending STR and CM will continue to follow.
[2022-07-27 10:54] LABS: Glucose, Whole Blood 104 mg/dL (60-115)
[2022-07-27] MEDS: Bisoprolol Fumarate 5 MG TABLET 2.5 MG PO (11:30)
[2022-07-27 11:35] VITALS: BP 117/72; PULSE 88; RESP 20; TEMP 36.8; O2SAT 96
[2022-07-27] MEDS: Fluticasone/Vilanterol 200/25 BLST.W.DEV 1 PUFF INHALE (12:07)
[2022-07-27] MEDS: LORazepam 2 MG/ML VIAL 1 MG IVPUSH (13:16)
--- NOTE | 2022-07-27 13:27 | P.PNIM_ITS ---
Subjective Subjective Date of Service: 07/27/22 Interval History: Seen and evaluated this morning Alert and interactive less restless in bed No fever overnight pending LP today No other overnight events Review of Systems Review of Systems: Yes all other systems are reviewed and are negative Physical Exam Vital Signs: Vital Signs: Last Vital Signs Temp 98.2 F 07/27/22 11:35 Pulse 88 07/27/22 11:35 Resp 20 07/27/22 11:35 BP 117/72 07/27/22 11:35 Pulse Ox 96 07/27/22 11:35 O2 Del Method Room Air 07/27/22 11:35 BMI result Body Mass Index 31.8 Const: Other: Constitutional : Awake, interactive, restless Neck : Normal inspection, Supple Cardiovascular : irregular irregular, no JVP, no lower extremity edema Respiratory : good bilateral air entry, no crackles, wheezes or rhonchi Gastrointestinal: soft, lax, Normal bowel sounds, Non tender Skin : Warm, Dry Neurological : Alert & orientedx3, No focal deficit , restless mainly lower extremities, speech coherent Objective Data Active Medications Acetaminophen (Acetaminophen 325 Mg Tablet) 650 mg PO Q6H PRN PRN Reason: Pain, Mild (Pain Scale 1-3) Last Admin: 07/27/22 04:12 Dose: 650 mg Documented By: ANGEL Acetaminophen (Acetaminophen Supp 650 Mg Supp.Rect) 650 mg CO Q6H PRN PRN Reason: Fever Last Admin: 07/24/22 23:24 Dose: 650 mg Documented By: STEVE Albuterol Sulfate (Albuterol Sulfate 90 Mcg 8 Gm Inhaler) 2 puff INHALE Q4H PRN PRN Reason: dyspnea Atorvastatin Calcium (Atorvastatin Calcium 20 Mg Tablet) 20 mg PO BEDTIME [facility] Last Admin: 07/26/22 21:53 Dose: 20 mg Documented By: ANGEL Bisoprolol Fumarate (Bisoprolol Fumarate 5 Mg Tablet) 2.5 mg PO DAILY [facility] Last Admin: 07/27/22 11:30 Dose: 2.5 mg Documented By: JAVIER Clonazepam (Clonazepam 0.125 Mg Tab.Rapdis) 0.125 mg PO BEDTIME MRX1 PRN PRN Reason: Restless Leg(S) Last Admin: 07/25/22 08:34 Dose: 0.125 mg Documented By: MENDOZA Clonazepam (Clonazepam 0.125 Mg Tab.Rapdis) 0.125 mg PO TID PRN PRN Reason: anxiety/restlessness Last Admin: 07/27/22 04:12 Dose: 0.125 mg Documented By: ANGEL Diltiazem HCl (Diltiazem Hcl 30 Mg Tablet) 30 mg PO QID [facility]; Protocol Last Admin: 07/27/22 09:47 Dose: 30 mg Documented By: JAVIER Docusate Sodium (Docusate Sodium 100 Mg Capsule) 100 mg PO DAILY PRN PRN Reason: Constipation Ezetimibe (Ezetimibe 10 Mg Tablet) 10 mg PO DAILY [facility] Last Admin: 07/27/22 09:47 Dose: 10 mg Documented By: JAVIER Enoxaparin Sodium (Enoxaparin Sodium 80 Mg/0.8 Ml Syringe) 70 mg SUBCUT Q12H [facility] Last Admin: 07/26/22 07:47 Dose: 70 mg Documented By: DOBROQuoc Fluticasone/Vilanterol (Fluticasone/Vilanterol 200/25 Blst.W.Dev) 1 puff INHALE RDAILY [facility] Last Admin: 07/27/22 12:07 Dose: 1 puff Documented By: JAVIER Furosemide (Furosemide 20 Mg Tablet) 20 mg PO DAILY [facility]; Protocol Last Admin: 07/27/22 09:48 Dose: 20 mg Documented By: JAVIER Gabapentin (Gabapentin 300 Mg Capsule) 300 mg PO BID [facility] Last Admin: 07/27/22 09:47 Dose: 300 mg Documented By: JAVIER Glucose (Glucose Gel 15 Gm Gel..Gram.) 15 gm PO Q15M PRN; Protocol PRN Reason: per Hypoglycemia Standing Ord. Guaifenesin/Dextromethorphan (Guaifenesin Dm 100/10/5 Ml 5 Ml Syrup) 5 ml PO Q4H PRN PRN Reason: cough Last Admin: 07/27/22 10:43 Dose: 5 ml Documented By: JAVIER Dextrose (D10) 250 mls @ 750 mls/hr IV Q15M PRN; Protocol PRN Reason: per Hypoglycemia Standing Ord. Piperacillin Sod/Tazobactam (Sod 3.375 gm/ Sodium Chloride) 50 mls @ 100 mls/hr IV Q6H [facility] Last Infusion: 07/27/22 12:34 Dose: 0 mls/hr Documented By: JAVIER Vancomycin HCl 1,000 mg/ (Sodium Chloride) 270 mls @ 270 mls/hr IV Q12H [facility] Last Infusion: 07/27/22 11:27 Dose: 0 mls/hr Documented By: JAVIER Acyclovir Sodium 600 mg/ (Sodium Chloride) 112 mls @ 112 mls/hr IV Q8H [facility] Insulin Human Lispro (Insulin Lispro 100 Unit/Ml 3 Ml Vial) 0 unit SUBCUT QIDACHS [facility]; Protocol Last Admin: 07/27/22 12:35 Dose: Not Given Documented By: JAVIER Non-Admin Reason: No Insulin Coverage Levothyroxine Sodium (Levothyroxine Sodium 112 Mcg Tablet) 112 mcg PO DA MALKA@06 [facility] Last Admin: 07/27/22 07:00 Dose: 112 mcg Documented By: ANGEL Levothyroxine Sodium (Levothyroxine Sodium 25 Mcg Tablet) 25 mcg PO DAILY@0600 [facility] Last Admin: 07/27/22 07:00 Dose: 25 mcg Documented By: ANGEL Lorazepam (Lorazepam 2 Mg/Ml Vial) 1 mg IVPUSH ONCE PRN PRN Reason: Pre procedure Last Admin: 07/27/22 13:16 Dose: 1 mg Documented By: YUKI Montelukast Sodium (Montelukast Sodium 10 Mg Tablet) 10 mg PO BEDTIME [facility] Last Admin: 07/26/22 21:53 Dose: 10 mg Documented By: ANGEL Omeprazole (Omeprazole 20 Mg Capsule.) 20 mg PO DAILY@0630 [facility] Last Admin: 07/27/22 07:00 Dose: 20 mg Documented By: ANGEL Ondansetron HCl (Ondansetron Hcl 4 Mg/2 Ml Vial) 4 mg IVPUSH Q8H PRN PRN Reason: Nausea and Vomiting Pharmacy Consult (Consult Rx Perform Med Rec) 1 each MISCELLANE ONCE PRN PRN Reason: Consult order Pharmacy Consult (Consult Rx Vancomycin Dosing) 1 each MISCELLANE DAILY PRN PRN Reason: Consult order Ropinirole HCl (Ropinirole Hcl 0.5 Mg Tablet) 0.5 mg PO BEDTIME [facility] Last Admin: 07/26/22 21:53 Dose: 0.5 mg Documented By: ANGEL Sitagliptin Phosphate (Sitagliptin Phosphate 100 Mg Tablet) 100 mg PO DAILY [facility] Last Admin: 07/27/22 12:02 Dose: Not Given Documented By: JAVIER Non-Admin Reason: NPO Sodium Chloride (0.9 % Sodium Chloride Flush 3 Ml Syringe) 3 ml IVFLUSH QSHIFT [facility] Last Admin: 07/27/22 09:51 Dose: 3 ml Documented By: JAVIER Sucralfate (Sucralfate Oral Suspension 1 Gm/10 Ml Oral.Susp) 1 gm PO BID@1200,2100 PRN PRN Reason: GERD Tramadol HCl (Tramadol Hcl 50 Mg Tablet) 50 mg PO Q12H PRN PRN Reason: severe pain Last Admin: 07/25/22 08:34 Dose: 50 mg Documented By: MENDOZA Vitamin D (Cholecalciferol (Vitamin D3) 25 Mcg Tablet) 50 mcg PO DAILY [facility] Last Admin: 07/27/22 09:47 Dose: 50 mcg Documented By: JAVIER Labs 07/26/22 05:27 07/27/22 05:55 Labs: Laboratory Results - last 24 hr 07/26/22 07/26/22 07/26/22 15:22 18:30 20:21 Estim Creat Clear Calc Estimated GFR POC Glucose 119 H 125 H Random Vancomycin 11.7 L 07/27/22 07/27/22 07/27/22 05:55 07:34 10:50 Estim Creat Clear Calc 59.1 Estimated GFR > 60 POC Glucose 127 H 104 Random Vancomycin Microbiology Microbiology Results: Microbiology 07/25/22 03:47 Blood Culture - Preliminary Blood - Venous No growth after 48 hours. 07/25/22 03:47 Blood Culture - Preliminary Blood - Venous No growth after 48 hours. 07/24/22 17:29 Blood Culture - Preliminary Blood - Venous No growth after 48 hours. 07/24/22 17:29 Blood Culture - Preliminary Blood - Venous No growth after 48 hours. Assessment and Plan (1) SIRS (systemic inflammatory response syndrome): Status: Acute (2) Encephalopathy: Status: Acute (3) Restless leg syndrome: Status: Acute (4) Atrial fibrillation with rapid ventricular response: Status: Acute Plan A 76 years old lady with PMH of Afib, DM, HTN, RLS among others who presents to the hospital with SOB and weakness. Fever , SIRS No fever last 48 hours no clear source of infection identified yet, concern over possible encephalitis Empirical broad spectrum Abx of Acyclovir, Vanco and Zosyn negative final cultures negative resp panel and CT abd To do an LP today ID consult appreciated, DC Abx if LP negative paroxysmal AFib with RVR better controlled PO Cardizem restart Bisoprolol, increase the dose Change Xarelto with Lovenox Cardiology consult Monitor on telemetry Restless leg syndrome Patient currently very restless, difficulty staying in bed or lying still Continue gabapentin, clonazepam , tramadol p.r.n. normal iron studies negative urine drug test Toxic encephalopathy could be 2/2 fever, drugs, viral illness (encephalitis) wax and wane but overall improving supportive measures, reorientation negative head CT Concern of cognitive decline Patient's primary contact noted patient has been experiencing mental decline for the past year with increased forgetfulness and weakness Patient has no formal diagnosis of dementia Patient lives alone, has some support but unclear how much, unclear how compliant patient is with medications PT consult Neurology input appreciated, consider MR brain when less restless to eval acute\chronic cause of congnitive decline HFpEF Does not appear to be in acute exacerbation Continue home furosemide 20 mg p.o. HTN Hold bisoprolol-hydrochlorothiazide, losartan for now, BP soft, pt on Cardizem drip Resume as indicated Oax-[id number]-mkgcpiteg diabetes type 2 Hold metformin Continue Januvia Diabetic diet Sliding-scale insulin HLD Continue ezetimide COPD Not in acute exacerbation Continue home inhalers Full Code DVT Prophylaxis: On Lovenox on hold for LP Pt will require a hospitalization of overnights for treatment of?possible encephalitis Pending LP Time Spent With Patient Time: Total time managing care of this patient today ____ minutes. Quality Stroke Does the patient have a stroke diagnosis?: No VTE Prior VTE?: No VTE Risk Level:: Medical - moderate - high VTE Device Contraindication: Treatment Not Indicated VTE Drug Contraindication: N/A - Med Ordered
[2022-07-27 15:46] VITALS: BP 167/77; PULSE 90; RESP 18; TEMP 36.7; O2SAT 93
[2022-07-27 15:53] LABS: Glucose, Whole Blood 100 mg/dL (60-115)
[2022-07-27 15:58] LABS: CSF Appearance Bloody; CSF Tube # 1
[2022-07-27 16:21] LABS: Glucose CSF 66 mg/dL; Total Protein CSF 24.5 mg/dL (15-45)
[2022-07-27 16:36] LABS: Appearance CSF CLEAR; CSF Tube # 4; Color CSF PINK; Lymphocytes CSF 100 %; Red Blood Cell CSF 548 MM*3; White Blood Cell CSF 2 MM*3
[2022-07-27 18:03] LABS: Cryptococcus neoformans/gattii Not Detected (Not Detect.); Enterovirus Not Detected (Not Detect.); Escherichia coli K1 Not Detected (Not Detect.); Haemophilus influenzae Not Detected (Not Detect.); Herpes simplex virus 1 Not Detected (Not Detect.); Herpes simplex virus 2 Not Detected (Not Detect.); Human herpesvirus 6 Not Detected (Not Detect.); Human parechovirus Not Detected (Not Detect.); Listeria monocytogenes Not Detected (Not Detect.); Neisseria meningitidis Not Detected (Not Detect.); Streptococcus agalactiae Not Detected (Not Detect.); Streptococcus pneumoniae Not Detected (Not Detect.); Varicella zoster virus Not Detected (Not Detect.)
[2022-07-27 19:00] VITALS: BP 131/69; PULSE 104; RESP 14; TEMP 36.6; O2SAT 95
[2022-07-27 19:30] LABS: Vancomycin Random 14.7 mcg/mL (15-20)
[2022-07-27 19:57] LABS: Glucose, Whole Blood 183 mg/dL (60-115)
[2022-07-27] MEDS: rOPINIRole HCL 0.5 MG TABLET PO (21:34)
[2022-07-27] MEDS: Montelukast Sodium 10 MG TABLET PO (21:34)
[2022-07-27] MEDS: Atorvastatin Calcium 20 MG TABLET PO (21:34)
[2022-07-28] MEDS: 0.9 % Sodium Chloride Flush 3 ML SYRINGE IVFLUSH ×4 (02:25→20:05)
[2022-07-28] MEDS: Acyclovir Sodium 600 MG in 0.9 % Sodium Chloride 100 ML 112 MG IV (02:26)
[2022-07-28] MEDS: guaiFENesin DM 100/10/5 ML 5 ML SYRUP PO ×3 (02:52→17:52)
[2022-07-28] MEDS: Levothyroxine Sodium 112 MCG TABLET PO (05:25)
[2022-07-28] MEDS: Levothyroxine Sodium 25 MCG TABLET PO (05:25)
[2022-07-28] MEDS: Piperacillin Sodium/Tazobactam 3.375 GM in 0.9 % Sodium Chloride 50 ML IV (05:25)
[2022-07-28] MEDS: Omeprazole 20 MG CAPSULE.DR PO (05:25)
[2022-07-28 06:01] LABS: Creatinine Clr Calc Pharmacy 58.3; Estimated Glomerular Filt Rate > 60
[2022-07-28 06:58] LABS: Glucose, Whole Blood 134 mg/dL (60-115)
[2022-07-28 07:10] VITALS: BP 143/70; PULSE 76; TEMP 37; O2SAT 96
[2022-07-28] MEDS: Cholecalciferol (Vitamin D3) 25 MCG TABLET 50 MCG PO (08:23)
[2022-07-28] MEDS: Ezetimibe 10 MG TABLET PO (08:24)
[2022-07-28] MEDS: Gabapentin 300 MG CAPSULE PO ×2 (08:24→20:04)
[2022-07-28] MEDS: Furosemide 20 MG TABLET PO (08:24)
[2022-07-28] MEDS: Bisoprolol Fumarate 5 MG TABLET PO (08:24)
[2022-07-28] MEDS: dilTIAZem HCL 30 MG TABLET PO ×3 (08:24→17:57)
[2022-07-28] MEDS: SITagliptin Phosphate 100 MG TABLET PO (08:24)
[2022-07-28 10:21] VITALS: BP 125/55; PULSE 96; O2SAT 95
--- NOTE | 2022-07-28 10:30 | HO.PM.IMPN ---
Subjective Subjective Date of Service: 07/28/22 Interval History: Seen and evaluated this morning Alert and interactive less restless in bed No fever overnight LP did not show PMNs No other overnight events Review of Systems Review of Systems: Yes all other systems are reviewed and are negative Physical Exam Vital Signs: Vital Signs: Last Vital Signs Temp 98.6 F 07/28/22 07:10 Pulse 76 07/28/22 07:10 Resp 14 07/27/22 19:00 BP 143/70 H 07/28/22 07:10 Pulse Ox 96 07/28/22 07:10 O2 Del Method Room Air 07/28/22 07:10 BMI result Body Mass Index 31.8 Const: Other: Constitutional : Awake, interactive, comfortable Neck : Normal inspection, Supple Cardiovascular : irregular irregular, no JVP, no lower extremity edema Respiratory : good bilateral air entry, no crackles, wheezes or rhonchi Gastrointestinal: soft, lax, Normal bowel sounds, Non tender Skin : Warm, Dry Neurological : Alert & orientedx3, No focal deficit , less restless, speech coherent Objective Data Active Medications Acetaminophen (Acetaminophen 325 Mg Tablet) 650 mg PO Q6H PRN PRN Reason: Pain, Mild (Pain Scale 1-3) Last Admin: 07/27/22 04:12 Dose: 650 mg Documented By: ANGEL Acetaminophen (Acetaminophen Supp 650 Mg Supp.Rect) 650 mg IN Q6H PRN PRN Reason: Fever Last Admin: 07/24/22 23:24 Dose: 650 mg Documented By: STEVE Albuterol Sulfate (Albuterol Sulfate 90 Mcg 8 Gm Inhaler) 2 puff INHALE Q4H PRN PRN Reason: dyspnea Atorvastatin Calcium (Atorvastatin Calcium 20 Mg Tablet) 20 mg PO BEDTIME [facility] Last Admin: 07/27/22 21:34 Dose: 20 mg Documented By: STEVE Bisoprolol Fumarate (Bisoprolol Fumarate 5 Mg Tablet) 5 mg PO DAILY [facility] Last Admin: 07/28/22 08:24 Dose: 5 mg Documented By: YESY Clonazepam (Clonazepam 0.125 Mg Tab.Rapdis) 0.125 mg PO BEDTIME MRX1 PRN PRN Reason: Restless Leg(S) Last Admin: 07/25/22 08:34 Dose: 0.125 mg Documented By: MENDOZA Clonazepam (Clonazepam 0.125 Mg Tab.Rapdis) 0.125 mg PO TID PRN PRN Reason: anxiety/restlessness Last Admin: 07/28/22 02:52 Dose: 0.125 mg Documented By: STEVE Diltiazem HCl (Diltiazem Hcl 30 Mg Tablet) 30 mg PO QID [facility]; Protocol Last Admin: 07/28/22 08:24 Dose: 30 mg Documented By: YESY Docusate Sodium (Docusate Sodium 100 Mg Capsule) 100 mg PO DAILY PRN PRN Reason: Constipation Ezetimibe (Ezetimibe 10 Mg Tablet) 10 mg PO DAILY [facility] Last Admin: 07/28/22 08:24 Dose: 10 mg Documented By: YESY Enoxaparin Sodium (Enoxaparin Sodium 80 Mg/0.8 Ml Syringe) 70 mg SUBCUT Q12H [facility] Last Admin: 07/26/22 07:47 Dose: 70 mg Documented By: DOBROQuoc Fluticasone/Vilanterol (Fluticasone/Vilanterol 200/25 Blst.W.Dev) 1 puff INHALE RDAILY [facility] Last Admin: 07/27/22 12:07 Dose: 1 puff Documented By: JAVIER Furosemide (Furosemide 20 Mg Tablet) 20 mg PO DAILY [facility]; Protocol Last Admin: 07/28/22 08:24 Dose: 20 mg Documented By: YESY Gabapentin (Gabapentin 300 Mg Capsule) 300 mg PO BID [facility] Last Admin: 07/28/22 08:24 Dose: 300 mg Documented By: YESY Glucose (Glucose Gel 15 Gm Gel..Gram.) 15 gm PO Q15M PRN; Protocol PRN Reason: per Hypoglycemia Standing Ord. Guaifenesin/Dextromethorphan (Guaifenesin Dm 100/10/5 Ml 5 Ml Syrup) 5 ml PO Q4H PRN PRN Reason: cough Last Admin: 07/28/22 08:23 Dose: 5 ml Documented By: YESY Dextrose (D10) 250 mls @ 750 mls/hr IV Q15M PRN; Protocol PRN Reason: per Hypoglycemia Standing Ord. Insulin Human Lispro (Insulin Lispro 100 Unit/Ml 3 Ml Vial) 0 unit SUBCUT QIDACHS [facility]; Protocol Last Admin: 07/28/22 08:37 Dose: Not Given Documented By: YESY Non-Admin Reason: No Insulin Coverage Levothyroxine Sodium (Levothyroxine Sodium 112 Mcg Tablet) 112 mcg PO DAILY@0600 [facility] Last Admin: 07/28/22 05:25 Dose: 112 mcg Documented By: STEVE Levothyroxine Sodium (Levothyroxine Sodium 25 Mcg Tablet) 25 mcg PO DAILY@0600 [facility] Last Admin: 07/28/22 05:25 Dose: 25 mcg Documented By: STEVE Lorazepam (Lorazepam 2 Mg/Ml Vial) 1 mg IVPUSH ONCE PRN PRN Reason: Pre procedure Last Admin: 07/27/22 13:16 Dose: 1 mg Documented By: YUKI Montelukast Sodium (Montelukast Sodium 10 Mg Tablet) 10 mg PO BEDTIME [facility] Last Admin: 07/27/22 21:34 Dose: 10 mg Documented By: STEVE Omeprazole (Omeprazole 20 Mg Capsule.) 20 mg PO DAILY@0630 [facility] Last Admin: 07/28/22 05:25 Dose: 20 mg Documented By: STEVE Ondansetron HCl (Ondansetron Hcl 4 Mg/2 Ml Vial) 4 mg IVPUSH Q8H PRN PRN Reason: Nausea and Vomiting Pharmacy Consult (Consult Rx Perform Med Rec) 1 each MISCELLANE ONCE PRN PRN Reason: Consult order Pharmacy Consult (Consult Rx Vancomycin Dosing) 1 each MISCELLANE DAILY PRN PRN Reason: Consult order Rivaroxaban (Rivaroxaban 20 Mg Tablet) 20 mg PO DAILY [facility] Ropinirole HCl (Ropinirole Hcl 0.5 Mg Tablet) 0.5 mg PO BEDTIME [facility] Last Admin: 07/27/22 21:34 Dose: 0.5 mg Documented By: STEVE Sitagliptin Phosphate (Sitagliptin Phosphate 100 Mg Tablet) 100 mg PO DAILY [facility] Last Admin: 07/28/22 08:24 Dose: 100 mg Documented By: YESY Sodium Chloride (0.9 % Sodium Chloride Flush 3 Ml Syringe) 3 ml IVFLUSH QSHIFT [facility] Last Admin: 07/28/22 08:24 Dose: 3 ml Documented By: YESY Sucralfate (Sucralfate Oral Suspension 1 Gm/10 Ml Oral.Susp) 1 gm PO BID@1200,2100 PRN PRN Reason: GERD Tramadol HCl (Tramadol Hcl 50 Mg Tablet) 50 mg PO Q12H PRN PRN Reason: severe pain Last Admin: 07/25/22 08:34 Dose: 50 mg Documented By: MENDOZA Vitamin D (Cholecalciferol (Vitamin D3) 25 Mcg Tablet) 50 mcg PO DAILY [facility] Last Admin: 07/28/22 08:23 Dose: 50 mcg Documented By: YESY Labs 07/26/22 05:27 07/28/22 05:29 Labs: Laboratory Results - last 24 hr 07/27/22 07/27/22 07/27/22 10:50 14:43 14:43 Estim Creat Clear Calc Estimated GFR POC Glucose 104 CSF Tube Number 1 CSF Volume CSF Appearance CSF Color CSF WBC CSF RBC CSF Lymphocytes CSF Appearance (b) Bloody CSF Glucose 66 CSF Total Protein 24.5 CSF C.neoform/gat PCR Not Detected CSF CMV DNA (PCR) Not Detected CSF Enterovirus (PCR) Not Detected CSF E. coli K1 (PCR) Not Detected CSF H. influenzae (PCR) Not Detected CSF HSV I (PCR) Not Detected CSF HSV II (PCR) Not Detected CSF HHV 6 (PCR) Not Detected CSF L.monocytogenes PCR Not Detected CSF N. meningitidis PCR Not Detected CSF Parechovirus (PCR) Not Detected CSF S. agalactiae (PCR) Not Detected CSF S. pneumoniae (PCR) Not Detected CSF VZV (PCR) Not Detected Random Vancomycin 07/27/22 07/27/22 07/27/22 14:43 15:48 18:45 Estim Creat Clear Calc Estimated GFR POC Glucose 100 CSF Tube Number 4 CSF Volume 3.0 CSF Appearance CLEAR CSF Color PINK CSF WBC 2 CSF RBC 548 CSF Lymphocytes 100 CSF Appearance (b) CSF Glucose CSF Total Protein CSF C.neoform/gat PCR CSF CMV DNA (PCR) CSF Enterovirus (PCR) CSF E. coli K1 (PCR) CSF H. influenzae (PCR) CSF HSV I (PCR) CSF HSV II (PCR) CSF HHV 6 (PCR) CSF L.monocytogenes PCR CSF N. meningitidis PCR CSF Parechovirus (PCR) CSF S. agalactiae (PCR) CSF S. pneumoniae (PCR) CSF VZV (PCR) Random Vancomycin 14.7 L 07/27/22 07/28/22 07/28/22 19:44 05:29 06:55 Estim Creat Clear Calc 58.3 Estimated GFR > 60 POC Glucose 183 H 134 H CSF Tube Number CSF Volume CSF Appearance CSF Color CSF WBC CSF RBC CSF Lymphocytes CSF Appearance (b) CSF Glucose CSF Total Protein CSF C.neoform/gat PCR CSF CMV DNA (PCR) CSF Enterovirus (PCR) CSF E. coli K1 (PCR) CSF H. influenzae (PCR) CSF HSV I (PCR) CSF HSV II (PCR) CSF HHV 6 (PCR) CSF L.monocytogenes PCR CSF N. meningitidis PCR CSF Parechovirus (PCR) CSF S. agalactiae (PCR) CSF S. pneumoniae (PCR) CSF VZV (PCR) Random Vancomycin Microbiology Microbiology Results: Microbiology 07/27/22 14:43 Gram Stain - Final Cerebrospinal Fluid CSF Examination - Final Fluid Description - Final CSF Culture - Preliminary No growth to date. Assessment and Plan (1) SIRS (systemic inflammatory response syndrome): Status: Acute (2) Encephalopathy: Status: Acute (3) Atrial fibrillation with rapid ventricular response: Status: Acute Plan A 76 years old lady with PMH of Afib, DM, HTN, RLS among others who presents to the hospital with SOB and weakness. Fever , SIRS No fever last 48 hours no clear source of infection identified LP negative negative final cultures negative resp panel and CT abd ID consult appreciated, DC Abx if LP negative DC Empirical Abx of Acyclovir, Vanco and Zosyn Monitor for any mental status changes or fever overnight paroxysmal AFib with RVR better controlled PO Cardizem continue Bisoprolol, increase the dose restart Xarelto Monitor on telemetry Restless leg syndrome better controlled Continue gabapentin, clonazepam , tramadol p.r.n. normal iron studies negative urine drug test Toxic encephalopathy 2/2 fever, drugs, possible chronic problem wax and wane but overall improving supportive measures, reorientation negative head CT Concern of cognitive decline patient has been experiencing mental decline for the past year with increased forgetfulness and weakness Patient has no formal diagnosis of dementia Patient lives alone, has some support but unclear how much, unclear how compliant patient is with medications PT consult Neurology input appreciated, consider MR brain when less restless to eval acute\chronic cause of congnitive decline Physical deconditioning PT rec rehab HFpEF Does not appear to be in acute exacerbation Continue home furosemide 20 mg p.o. HTN Hold bisoprolol-hydrochlorothiazide, losartan for now, BP soft, pt on Cardizem drip Resume as indicated Pwx-[id number] diabetes type 2 Hold metformin Continue Januvia Diabetic diet Sliding-scale insulin HLD Continue ezetimide COPD Not in acute exacerbation Continue home inhalers Full Code DVT Prophylaxis: Xarelto Pt will require a hospitalization of overnights for monitoring of fever off antibiotics, change in mental status pending SNF placement Time Spent With Patient Time: Total time managing care of this patient today ____ minutes. Quality Stroke Does the patient have a stroke diagnosis?: No VTE Prior VTE?: No VTE Risk Level:: Medical - moderate - high VTE Device Contraindication: Treatment Not Indicated VTE Drug Contraindication: N/A - Med Ordered
[2022-07-28 10:57] VITALS: BP 144/74; PULSE 85; RESP 18; TEMP 36.7; O2SAT 98
[2022-07-28 11:21] LABS: Glucose, Whole Blood 147 mg/dL (60-115)
[2022-07-28] MEDS: Benzonatate 100 MG CAPSULE 200 MG PO ×3 (12:04→20:04)
[2022-07-28] MEDS: Rivaroxaban 20 MG TABLET PO (12:17)
--- NOTE | 2022-07-28 15:06 | MHC.CM.PN ---
EMR REVIEWED AND PER MD ROUNDS, PT WILL BE MEDICALLY CLEARED FOR DC 07/29. PT HAS BEEN ACCEPTED AT [facility] WHO WILL START [facility] AUTH PROCESS IN ANTICIPATION OF DC 07/29. PT HCP LIANEXES BOWMAN UPDATED. CM WILL CONTINUE TO FOLLOW FOR ANY CHANGE IN DC PLAN. WILL AWAIT [facility] AUTH.
[2022-07-28] MEDS: Fluticasone/Vilanterol 200/25 BLST.W.DEV 1 PUFF INHALE (16:10)
[2022-07-28 17:00] LABS: Glucose, Whole Blood 153 mg/dL (60-115)
[2022-07-28] MEDS: Insulin Lispro 100 UNIT/ML 3 ML VIAL SUBCUT ×2 (17:52→20:04)
[2022-07-28 19:56] LABS: Glucose, Whole Blood 197 mg/dL (60-115)
[2022-07-28 20:00] VITALS: BP 126/63; PULSE 91; RESP 18; O2SAT 96
[2022-07-28] MEDS: rOPINIRole HCL 0.5 MG TABLET PO (20:04)
[2022-07-28] MEDS: Atorvastatin Calcium 20 MG TABLET PO (20:04)
[2022-07-28] MEDS: Montelukast Sodium 10 MG TABLET PO (20:04)
[2022-07-28 22:00] VITALS: BP 137/67; PULSE 106; RESP 17; TEMP 36; O2SAT 98
--- NOTE | 2022-07-29 03:37 | PC.NURSE ---
Dr Cannon paged at 21:29. Pt on 30mg PO Cardizem QID. Dose due at 21:00-I was unable to obtain from [facility]. Pharmacy called and stated prior dose given late so next dose due at 9am unless MD wanted to order a [address] did not order-wait till am dose.
[2022-07-29 05:55] LABS: Creatinine Clr Calc Pharmacy 63.2; Estimated Glomerular Filt Rate > 60
[2022-07-29] MEDS: Omeprazole 20 MG CAPSULE.DR PO (06:23)
[2022-07-29] MEDS: Levothyroxine Sodium 112 MCG TABLET PO (06:23)
[2022-07-29] MEDS: Levothyroxine Sodium 25 MCG TABLET PO (06:23)
[2022-07-29 07:08] LABS: Glucose, Whole Blood 114 mg/dL (60-115)
[2022-07-29 07:40] VITALS: BP 123/65; PULSE 93; RESP 20; TEMP 36.2; O2SAT 96
[2022-07-29] MEDS: Rivaroxaban 20 MG TABLET PO (10:01)
[2022-07-29] MEDS: SITagliptin Phosphate 100 MG TABLET PO (10:01)
[2022-07-29] MEDS: Bisoprolol Fumarate 5 MG TABLET PO (10:01)
[2022-07-29] MEDS: Cholecalciferol (Vitamin D3) 25 MCG TABLET 50 MCG PO (10:01)
[2022-07-29] MEDS: dilTIAZem HCL 30 MG TABLET PO ×2 (10:02→12:56)
[2022-07-29] MEDS: Ezetimibe 10 MG TABLET PO (10:02)
[2022-07-29] MEDS: 0.9 % Sodium Chloride Flush 3 ML SYRINGE IVFLUSH ×2 (10:02→14:51)
[2022-07-29] MEDS: Benzonatate 100 MG CAPSULE 200 MG PO ×2 (10:02→14:51)
[2022-07-29] MEDS: Fluticasone/Vilanterol 200/25 BLST.W.DEV 1 PUFF INHALE (10:03)
[2022-07-29] MEDS: Furosemide 20 MG TABLET PO (10:03)
[2022-07-29 11:24] LABS: Glucose, Whole Blood 196 mg/dL (60-115)
[2022-07-29 11:35] VITALS: BP 135/69; PULSE 80; RESP 20; TEMP 37.8; O2SAT 98
[2022-07-29] MEDS: LORazepam 2 MG/ML VIAL 1 MG IVPUSH (11:50)
--- NOTE | 2022-07-29 12:07 | MHC.CM.PN ---
Per ROUNDS discussion, Patient is medically cleared for dc to SNF/STR today. Patient will dc to [facility] today at 2PM, via [facility]. Patient and her Primary Contact/Cousin/Leora @ [phone] and at bedside are aware of and in agreement with the dc plan. IMM addressed at bedside and the original was left with Cousin and a copy has been placed on the chart.
--- NOTE | 2022-07-29 12:12 | MHC.CM.PN ---
Per MD's request, dc time has been changed to 4 PM(Patient currently having a MRI).
[2022-07-29] MEDS: guaiFENesin DM 100/10/5 ML 5 ML SYRUP PO (12:56)
[2022-07-29] MEDS: Insulin Lispro 100 UNIT/ML 3 ML VIAL SUBCUT (12:57)
--- NOTE | 2022-07-29 13:40 | P.DS_ITS ---
DS: Providers Provider Date of Service: 07/29/22 Date of admission: 07/24/22 12:40 Primary care physician: ASIF Kimble Consults: 07/24/22 12:41 Consult to Cardiology Routine Consulting Provider: [facility] [place] [facility] Reason for consultation: AFib with RVR, newly diagnosed with AFib in past month 07/24/22 17:12 Consult to Infectious Diseases Routine Consulting Provider: [facility] [place] [facility] Reason for consultation: Encephalopathy of unknown origin, fever 07/25/22 07:08 Consult for Sitter Routine Reason for consultation: behaviour disturbance Has provider been notified: No 07/25/22 07:18 Consult to Neurology Routine Consulting Provider: [facility] Reason for consultation: Fever, encephalopathy , restless leg, need of LP ? DS: Diagnosis Discharge Diagnosis (1) SIRS (systemic inflammatory response syndrome): Status: Acute (2) Encephalopathy: Status: Acute (3) Atrial fibrillation with rapid ventricular response: Status: Acute (4) Restless leg syndrome: Status: Acute (5) Atelectasis, left: Status: Acute (6) Toxic metabolic encephalopathy: Status: Acute DS: Summary Hospital Course Hospital Course: Admission note HPI? a 76-year-old female with a PMH significant for AFib on Xarelto, non insulin- dependent diabetes, HTN, HLD, hypothyroidism, restless leg syndrome, asthma, environmental allergies, and former 30 pack year smoker quit in 1994? who presents to the ED with?multiple complaints including headache, intermittent shortness of breath nausea, nausea, and generalized weakness.? Patient was found to be in AFib with RVR in the 120-130s.? At time of interview patient is seen to be extremely restless in bed, constantly moving legs, kicking, standing up, and changing positions from chair to bed and back again.? Patient is mildly confused, capable of answering most questions appropriately but at other times not answering or unclear how to answer. Pt is unable to remain still for any stretch of time. Spoke briefly with patient's primary contact, who stated that patient has been having declining mental function for the past year so.? Patient has been more forgetful, weaker, not wanting to participate in events.? Patient lives alone. The primary contact said she would stop been during the week to check on the patient, but it is unclear how much support the patient receives. Does not seems to have support on the weekends or visiting nurses services. Patient states she takes her medications as prescribed, but it is unclear how compliant she is. Of note, pt has been diagnosed with AFib within the past month and had an extensive cardiology workup including from a logical stress test and echocardiogram. In the ED patient was afebrile tachycardia up to 130, tachypneic up to 25, and hypertensive up to 170/94. Labs were significant for hyperbilirubinemia of 1.9, BNP mildly elevated at 202.? No leukocytosis, stable H&H.? Electrolytes WNL.? Renal function baseline.? LFTs WNL.? Troponin negative. D-dimer negative at 225.? CXR showed no acute findings. EKG demonstrated AFib with RVR of 122 with no evidence of ST elevations or depressions.? Pharmacological stress test on 07/12/2022 was without anginal symptoms, with isolated PVCs, and with normotensive response to injection.? Echocardiogram on 06/14/2022 with LVEF of 55-60%. Pt was treated with metoclopramide, clonazepam, diltiazem 15 mg IV, furosemide, and started on a Cardizem drip. Pt will be admitted to the hospital for treatment and further monitoring of AFib with RVR with diltiazem drip and specialist consult. Hospital course The patient was admitted for evaluation of altered mentation and SIRS. no clear source of infection was identified at that point and she was started on empirical antibiotics and Acyclovir pending Lumber puncture which took 72 hours of holding Xarelto to be done. Her symptoms improved during that period with improvement in mental status and no recurrence of fever. Evaluated by neurology and infection disease specialist who recommended to DC all antibiotics and acyclovir as LP came back negative for WBCs and had negative encephalitis panel. A CT Scan of abdomen, pelvis and head were done showing LLL atelactasis. the patient was complaining of cough. decision to treat it as pneumonia with oral antibiotics at discharge. She presented with AFib with RVR. started on Cardizem drip as she was evaluated by cardiology with good response as heart rate controlled over the course of hospital stay. home medications changed to Bisoprolol 5 mg daily and Cardizem CD 120 mg daily with continuation of Xarelto. to be followed by cardiology as outpatient. Has significant Restless leg syndrome which was much worse at time of presentation. improved with resolution of encephalopathy. treated with manuel apentin, clonazepam , tramadol p.r.n. with addition of Requip. normal iron studies. negative urine drug test. To continue requip on discharge. Had Toxic encephalopathy at presentation. overall improved to baseline. negative head CT. Family reported concerns of cognitive decline. patient has been experiencing mental decline for the past year with increased forgetfulness and weakness. has no formal diagnosis of dementia. Patient lives alone, has some support but unclear how much, unclear how compliant she is with medications. PT consulted and recommended short term rehab. The patient went to MRI of head but could not tolerate to sit still for the study and was not completed. To be discharged to nursing facility for PT. Discharge plan Continue Augmentin as prescribed Increase Bisoprolol to 5 mg daily Start Cardizem 120 mg daily Ropirinole started for restless leg Monitor Heart rate and blood pressure, report readings to PCP\Cardiology for further adjustment of the medications Time Spent with Patient Time attestation: Total time managing care of this patient today ____ minutes. Discharge coordination time: Greater than 30 minutes Quality: Safe Use of Opioids Does Pt have an Active Cancer Diagnosis on the Problem List?: No Quality: Stroke Does the patient have a stroke diagnosis?: No Physical Exam Vital Signs: Vital Signs: Last Vital Signs Temp 100.0 F 07/29/22 11:35 Pulse 80 07/29/22 11:35 Resp 20 07/29/22 11:35 BP 135/69 07/29/22 11:35 Pulse Ox 98 07/29/22 11:35 O2 Del Method Room Air 07/29/22 11:35 BMI result Body Mass Index 31.8 Const: Other: Constitutional : Awake, interactive, comfortable Neck : Normal inspection, Supple Cardiovascular : irregular irregular, no JVP, no lower extremity edema Respiratory : good bilateral air entry, no crackles, wheezes or rhonchi Gastrointestinal: soft, lax, Normal bowel sounds, Non tender Skin : Warm, Dry Neurological : Alert & orientedx3, No focal deficit , speech coherent DS: Data Data Completed and Pending Labs on day of discharge: Laboratory Results - last 24 hr 07/28/22 07/28/22 07/28/22 16:55 19:46 20:55 Creatinine Estim Creat Clear Calc Estimated GFR POC Glucose 153 H 197 H Random Vancomycin 7.0 L 07/29/22 07/29/22 07/29/22 05:25 06:59 11:13 Creatinine 0.73 Estim Creat Clear Calc 63.2 Estimated GFR > 60 POC Glucose 114 196 H Random Vancomycin Preliminary micro results at discharge 07/27/22 14:43 CSF Culture - Preliminary Cerebrospinal Fluid No growth to date. 07/25/22 03:47 Blood Culture - Preliminary Blood - Venous No growth after 48 hours. 07/25/22 03:47 Blood Culture - Preliminary Blood - Venous No growth after 48 hours. 07/24/22 17:29 Blood Culture - Preliminary Blood - Venous No growth after 48 hours. 07/24/22 17:29 Blood Culture - Preliminary Blood - Venous No growth after [address] scan - head: Radiologist's impression: ITS Impressions Chest X-Ray 07/24/22 06:06 IMPRESSION: No acute findings. Abdomen/Pelvis CT 07/25/22 09:52 IMPRESSION: Diffuse hepatic steatosis without focal lesion. Left basilar atelectasis and/or scarring No acute intra-abdominal process seen. Fleischner guidelines were followed. Head CT 07/25/22 09:52 IMPRESSION: No acute intracranial process seen. Lumbar Puncture Fluoroscopy 07/27/22 15:24 IMPRESSION: Fluoroscopy-guided lumbar puncture. MRI - head: Radiologist's impression: ITS Impressions Chest X-Ray 07/24/22 06:06 IMPRESSION: No acute findings. Abdomen/Pelvis CT 07/25/22 09:52 IMPRESSION: Diffuse hepatic steatosis without focal lesion. Left basilar atelectasis and/or scarring No acute intra-abdominal process seen. Fleischner guidelines were followed. Head CT 07/25/22 09:52 IMPRESSION: No acute intracranial process seen. Lumbar Puncture Fluoroscopy 07/27/22 15:24 IMPRESSION: Fluoroscopy-guided lumbar puncture. Brain MRI 07/29/22 12:22 FINDINGS AND IMPRESSION: There is no hydrocephalus or midline shift of structures. No diffusion signal abnormality is identified. No significant white matter signal changes evident, though axial T2 FLAIR-weighted imaging is fairly motion degraded. The craniovertebral junction and marrow signal are normal. Discharge Plan Discharge Anticipated Discharge Date/Time: 07/29/22 13:26 Patient Disposition: [facility] Discharge Diagnosis: Atrial fibrillation w rapid ventricular response Encephalopathy Fever Referrals: Maurisio Ulloa [place] [Outside] - 1 Week Sudneep,ASIF Saenz [Primary Care Provider] - 1 Week Discharge Medications: New bisoprolol fumarate 5 mg Tablet 5 mg PO DAILY Qty: 30 0RF benzonatate 100 mg Capsule 200 mg PO TID Qty: 30 0RF ropinirole 0.5 mg Tablet 1 mg PO BEDTIME Qty: 60 0RF diltiazem HCl 120 mg capsule,extended release 24hr 120 mg PO DAILY Qty: 30 0RF amoxicillin-pot clavulanate 875-125 mg Tablet 875 mg PO BID Qty: 10 0RF Continued (DME) blood-glucose meter [FreeStyle Lite Meter] Kit See Rx Instructions miscellaneous .MEDSUPPLY Qty: 1 0RF Rx Instructions: 3 times a day (DME) lancets [FreeStyle Lancets] 28 gauge misc See Rx Instructions .MEDSUPPLY Qty: 100 8RF Rx Instructions: Twice a day (DME) FreeStyle Lite Strips Strip See Rx Instructions .MEDSUPPLY Qty: 100 6RF Rx Instructions: 2 times a day levothyroxine 137 mcg tablet 137 mcg PO DAILY@0600 furosemide 20 mg tablet 20 mg PO DAILY clonazepam 0.125 mg tablet,disintegrating 0.125 - 0.25 mg PO BEDTIME PRN (Reason: Restless Leg(S)) tramadol 50 mg tablet 50 mg PO Q12H PRN (Reason: severe pain) gabapentin 300 mg capsule 300 mg PO BID omeprazole 20 mg capsule,delayed release(DR/EC) 20 mg PO DAILY@0630 albuterol sulfate [Ventolin HFA] 90 mcg/actuation HFA aerosol inhaler 2 puff INHALATION Q4-6H PRN (Reason: dyspnea) sucralfate 100 mg/mL suspension 10 ml PO BID@1200,2100 PRN (Reason: GERD) Rx Instructions: Please take it at noon time and at bedtime fluticasone propion-salmeterol 500-50 mcg/dose blister with device 1 ea PO DAILY losartan 25 mg tablet 25 mg PO BEDTIME metformin 500 mg tablet extended release 24 hr 500 mg PO DAILY@1800 calcium citrate-vitamin D3 [Calcium Citrate + D] 315 mg-5 mcg (200 unit) tablet 2 tab PO DAILY rosuvastatin 5 mg tablet 5 mg PO BEDTIME (DME) walker Misc See Rx Instructions .MEDSUPPLY Qty: 1 0RF Rx Instructions: Walker without wheels montelukast 10 mg tablet 10 mg PO BEDTIME (DME) blood sugar diagnostic Strip See Rx Instructions Not Applicable BID Qty: 10 Rx Instructions: As directed cholecalciferol (vitamin D3) 50 mcg (2,000 unit) capsule 50 mcg PO DAILY 90 Days Qty: 90 2RF sitagliptin phosphate 100 mg tablet 100 mg PO DAILY ezetimibe 10 mg tablet 10 mg PO DAILY Xarelto 20 mg tablet 20 mg PO DAILY@1800 Discontinued bisoprolol-hydrochlorothiazide 2.5-6.25 mg tablet 1 tab PO DAILY Discharge Orders: Discharge Order (Routine); Ordered 07/29/22 Ordered By: Joo Arango Diet: Advance to usual diet Activity on Discharge: As tolerated Stand Alone Forms: Patient Portal Discharge page Care Plan Goals: Read below Health Concerns: Read below Plan of Treatment: Read below Assessment: You were admitted to the hospital for evaluation of altered mentation, fever and rapid heart rate. treated for possible brain infection with IV antibiotics and antiViral with improvement in mental status. a spinal tap was done with no evidence of infection. CT scan showed possible pneumonia. You were noticed to be in rapid atrial fibrillation controlled with IV and oral medications as you were followed by Cardiology team. Continue Augmentin as prescribed Increase Bisoprolol to 5 mg daily Start Cardizem 120 mg daily Ropirinole started for restless leg Monitor Heart rate and blood pressure, report readings to PCP\Cardiology for further adjustment of the medications Discharge Date/Time: 07/29/22 16:57
[2022-07-29 13:41] LABS: COVID-19 Test Negative (Negative); IDNOW Serial# 08D9AD1C
--- NOTE | 2022-07-29 13:59 | MHC.CM.PN ---
CM spoke with Sister/HCP/Evelyne @ [phone] and informed her of the dc plan. is agreeable to call Evelyne to update her on Patient's Hospital course.
[2022-07-29] MEDS: Amoxicillin/Potassium Clav 875 MG TABLET PO (14:51)
[2022-07-29 15:39] VITALS: BP 127/79; PULSE 82; RESP 14; TEMP 37.4; O2SAT 96
[2022-07-31 19:08] LABS: Lyme IgG CSF Immunoblot NO BANDS DETECTED; Lyme IgM CSF Immunoblot NO BANDS DETECTED
== END 2022-07-29 16:57 | disposition skilled nursing facility (03) | DRG 308 ==
LOC: HO.ED 10:10 → HO.EDOVER 12:48 → HO.IMC 15:33
PROVIDERS: Internal Medicine; Radiology Diagnostic Radiology; Admitting Provider Student in an Organized Health Care Education/Training Program; Emergency Provider Emergency Medicine; PCP Registered Nurse; Visit Provider Student in an Organized Health Care Education/Training Program
PROC: 009U3ZZ Drainage of Spinal Canal, Percutaneous Approach (ICD-10-PCS; CPT 62270; principal; 2022-07-27 13:30)
DX: I48.0 Paroxysmal atrial fibrillation (principal); G92.8 Other toxic encephalopathy; J18.9 Pneumonia, unspecified organism; J98.11 Atelectasis; R65.10 Systemic inflammatory response syndrome (SIRS) of non-infectious origin without acute organ dysfunction; I50.32 Chronic diastolic (congestive) heart failure; J44.0 Chronic obstructive pulmonary disease with (acute) lower respiratory infection; E06.3 Autoimmune thyroiditis; E78.5 Hyperlipidemia, unspecified; I10 Essential (primary) hypertension; E11.9 Type 2 diabetes mellitus without complications; R41.81 Age-related cognitive decline; G25.81 Restless legs syndrome; I11.0 Hypertensive heart disease with heart failure; Z20.822 Contact with and (suspected) exposure to COVID-19; Z79.01 Long term (current) use of anticoagulants; Z79.51 Long term (current) use of inhaled steroids; Z79.84 Long term (current) use of oral hypoglycemic drugs; Z79.899 Other long term (current) drug therapy
CPT/HCPCS: 0241U; 36415; 36600; 62328; 70450; 70551; 71045; 74176; 80048; 80053; 80202; 80307; 81001; 82140; 82565; 82803; 82945; 82947; 83540; 83605; 83735; 83880; 84157; 84443; 84484; 85025; 85027; 85379; 85610; 85730; 86617; 87015; 87040; 87070; 87205; 87483; 87502; 87633; 87635; 89051; 93005; 97116; 97162; 99285; J0133; J1650; J1885; J1940; J2060; J2543; J2765; J3370

== ENCOUNTER 2022-09-01 14:32 | Outpatient (REF) | payer OTHER, SELFPAY ==
[2022-09-01 17:14] LABS: Alanine Aminotransferase 36 U/L (0-31); Albumin Level 3.9 g/dL (3.5-5.0); Alkaline Phosphatase 62 U/L (39-117); Anion Gap 16 (12-20); Aspartate Amino Transferase 28 U/L (5-31); Bilirubin Total 1.2 mg/dL (0.0-1.0); Blood Urea Nitrogen 14 mg/dL (9-16); Calcium 9.4 mg/dL (8.4-10.2); Carbon Dioxide 22 mmol/L (22-29); Chloride 103 mmol/L (96-108); Estimated Glomerular Filt Rate > 60; Glucose Random 99 mg/dL (60-115); Potassium 3.7 mmol/L (3.3-5.1); Sodium 137 mmol/L (135-145); Total Protein 7.4 g/dL (6.5-8.0)
[2022-09-01 17:30] LABS: Free T4 (Free Thyroxine) 1.26 ng/dL (0.71-1.85); T4 Thyroxine 10.1 ug/dL (4.5-12.0); Thyroid Stimulating Hormone 2.57 uIU/mL (0.32-4.0)
== END 2022-09-01 14:33 | disposition home or self-care (01) ==
LOC: HO.HHCL 14:32
PROVIDERS: Visit Provider Student in an Organized Health Care Education/Training Program
DX: E03.9 Hypothyroidism, unspecified (principal)
CPT/HCPCS: 36415; 80053; 83735; 84436; 84439; 84443

== ENCOUNTER 2022-09-02 15:15 | Outpatient (AMB) | payer OTHER, MEDICAID, SELFPAY ==
--- NOTE | 2022-09-02 15:16 | MHC.OFFVIS ---
Intake Vital Signs 09/02/22 15:17 Height 5 ft 1 in Weight 156 lb 8.451 oz BMI 29.6 BP 122/70 Blood Pressure Location Lt brachial Position Sitting Pulse 87 Intake Visit Reasons: f/up stress HS/orthostatic hypo per home nurse Intake Note: f/up stress HS/orthostatic hypo home nurse Die Try Out Worker Required: No Allergies aspirin [ASPIRIN] Allergy (Severe, Verified 09/02/22 15:29) ANAPHYLAXIS Seasonal Allergies Allergy (Intermediate, Verified 09/02/22 15:29) asthma, itch, rash Medication List - Last Reconciled 09/02/22 by MCKAY [place] albuterol sulfate 90 mcg/actuation (Ventolin HFA) 2 puffs inhalation Q4-6H PRN bisoprolol fumarate 5 mg PO DAILY blood sugar diagnostic As directed blood sugar diagnostic (FreeStyle Lite Strips) 2 times a day blood-glucose meter (FreeStyle Lite Meter kit) 3 times a day calcium citrate-vitamin D3 315 mg-5 mcg (200 unit) (Calcium Citrate + D) 2 tabs PO DAILY cholecalciferol (vitamin D3) 50 mcg PO DAILY 90 days clonazepam 0.125 - 0.25 mg PO BEDTIME PRN ezetimibe 10 mg PO DAILY fluticasone propion-salmeterol 500-50 mcg/dose 1 ea PO DAILY furosemide 20 mg PO DAILY lancets (FreeStyle Lancets) Twice a day levothyroxine 137 mcg PO DAILY@0600 losartan 25 mg PO BEDTIME metformin ER 500 mg PO DAILY@1800 montelukast 10 mg PO BEDTIME omeprazole 20 mg PO DAILY@0630 rivaroxaban (Xarelto) 20 mg PO DAILY@1800 tramadol 50 mg PO Q12H PRN walker Walker without wheels HPI f/up stress HS/orthostatic hypo per home nurse HPI Details Teresa is a 77-year-old female with past medical history of hypertension, hyperlipidemia, diabetes, smoking, with newer finding of atrial fibrillation. She had been recently diagnosed then was admitted in July with shortness of breath, weakness and ultimately treated for pneumonia. She did have AFib RVR and was treated with heart rate control. She was continued on Xarelto for anticoagulation. Today she reports that she has a visiting nurse at home. The nurse documented that her blood pressure is lower in a standing position. She has been having symptoms of lightheadedness. No falls, presyncope, syncope. She does not feel heart palpitations. No chest discomfort at rest or with activity. She does have some shortness of breath with activity which is not new for her. She tells me she was just seen by her PCP and her diltiazem dose was reduced. She believes her bisoprolol and losartan were kept at the same doses. No bleeding issues reported. 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 [facility] Medical History Addiction, opium Arthritis Autoimmune thyroiditis CHF (congestive heart failure) Depression with anxiety Diabetes type 2, uncontrolled Dyslipidemia Essential hypertension Hypothyroidism (acquired) Obesity (BMI 30-39.9) Osteopenia Overweight (BMI 25.0-29.9) Restless leg syndrome Vitamin D deficiency Surgical History History of radical hysterectomy Hx of arthroscopy of knee Hx of cataract surgery Family History Father Diabetes Mother No problems noted. Son Substance use disorder Social History Household Members: None Housing: [facility] Do you presently have visiting nurse or other home services: Yes Unable to assess alcohol history related to: Unable to respond Alcohol intake: never Patient Tobacco Use Status: Former Tobacco user e-Cigarette/Vaping Use: Never Used Second Hand Smoke Exposure: No service: No Current occupational status: retired Review of Systems Const All systems reviewed & are unremarkable except as noted in HPI and below ENT Reports dizziness Card Denies chest pain, Denies chest pain at rest, Denies chest pain with activity, Denies rapid heart rate, Denies pedal edema, Denies edema, Denies leg edema, Denies lightheadedness, Denies palpitations, Denies dyspnea, Denies dyspnea on exertion and Denies orthopnea Resp Denies cough, Denies dyspnea and Denies dyspnea on exertion GI Denies hematochezia and Denies change in stool character Musc Denies abnormal gait, Reports limited range of motion, Reports muscle cramps, Denies muscle weakness, Denies numbness, Denies radiating pain into limb, Denies stiffness and Denies tingling Neuro Denies abnormal gait, Reports dizziness, Denies numbness and Denies tingling Endo Denies palpitations Physical Exam Vital Signs: Last Vital Signs Pulse 87 09/02/22 15:17 BP 122/70 09/02/22 15:17 BMI result Body Mass Index 29.6 Const Other: Ambulates with cane General: cooperative, healthy appearing, comfortable and no acute distress Orientation/consciousness: patient oriented x3 HEENT Head: Yes normal to inspection Eyes Sclerae: sclerae normal Neck Neck: Yes normal visual inspection Carotids: normal carotid upstroke Chest Chest palpation & inspection: normal inspection of the chest Resp Effort & Inspection: normal respiratory effort Auscultation: clear to auscultation bilaterally, no crackles, no rales, no rhonchi and no wheezes Cardio Jugular venous distension: no JVD Rate: regular rate Rhythm: abnormal rhythm Heart sounds: S1 normal heart sound present, S2 normal heart sound present, no gallops, no murmurs and no rubs Peripheral pulses: Peripheral pulses 2+ throughout GI Inspection: Yes normal to inspection Skin General skin exam: no rashes or lesions noted Neuro General: patient oriented x3 Extrem General: Yes normal to inspection, No no pedal edema and No calf tenderness Psych Appearance: grossly normal Mental Status: mental status grossly normal Speech and movement: Normal speech and movement present Office Procedures EKG Details: Today, read by me, atrial fibrillation, rate 87, QTC 466 millisecond [id number], Complete Assessment & Plan Assessment & Plan (1) Atrial fibrillation: Code(s): I48.91 - Unspecified atrial fibrillation Plan: Newer diagnosis of atrial fibrillation which is being treated with heart rate control. She had episode of AFib RVR during recent hospital admission for pneumonia. On discharge she was sent home with diltiazem 120 mg daily, bisoprolol 5 mg daily and Xarelto 20 mg daily. Last echocardiogram done 06/14/2022 showed EF 55-60%, basal inferior hypokinesis. She tells me since her hospital discharge she has been having some lightheadedness and her visiting nurse has documented low blood pressure in the standing position. Her PCP reduced her diltiazem according to her down to 60 mg daily. This dose may not be adequate to control her heart rate with atrial fibrillation. EKG done today is showing AFib with heart rate 87 which is at rest. She has follow-up with PCP next week. She is mildly orthostatic on exam today, sitting 120/60, standing 112/56. Medication recommendations would be that she continue diltiazem CD 120 mg daily, bisoprolol 5 mg daily and stop losartan. Will have this note faxed to her PCP for review. Cardiology follow-up in 3-4 months, sooner if needed (2) Essential hypertension: Code(s): I10 - Essential (primary) hypertension Plan: As above (3) Abnormal nuclear stress test: Code(s): R94.39 - Abnormal result of other cardiovascular function study Plan: Recent echocardiogram as above with basal inferior hypokinesis. Nuclear stress test was done on 07/13/2022 showing lateral and apical ischemia, EF 63%, t.i.d. not present. Patient denies any chest discomfort at rest or with activity. She does have some shortness of breath with activity which is not new. Will order a CTA of the coronary arteries for further evaluation. Patient is agreeable to this plan. No contrast dye allergy. Labs done on 09/01/2022 shows creatinine 0.81, GFR greater than 60. Orders: Orders CT Cardiac Coronary Angio Today I48.91 - Unspecified atrial fibrillation, R94.39 - Abnormal result of other cardiovascular function study Medications: Discontinued metformin ER 500 mg PO DAILY 90 days 90 tabs 1RF E11.65 - Type 2 diabetes mellitus with hyperglycemia losartan 25 mg PO DAILY 90 days 90 tabs 2RF I10 - Essential (primary) hypertension calcium citrate-vitamin D3 315 mg-5 mcg (200 unit) 2 tabs PO BID 30 days 120 tabs 4RF M85.80 - Other specified disorders of bone density and structure, unspecified site sucralfate Please take it at noon time and at bedtime 10 mL PO BID 400 mL 3RF K21.9 - Gastro-esophageal reflux disease without esophagitis fluticasone propion-salmeterol 500-50 mcg/dose 1 ea PO BID 60 ea 6RF Coding Level of Care Code Est Pt Level 4 (56869) Diagnoses Atrial fibrillation I48.91 Essential hypertension I10 Abnormal nuclear stress test R94.39 CPT Codes EKG - CPT: 33880-[id number], Complete ([id number]) Time Spent (min) 24 Comment chart review, document, interview, assessment
[2022-09-02 15:17] VITALS: BP 122/70; PULSE 87; BMI 29.6
== END 2022-09-02 15:58 | disposition home or self-care (01) ==
PROVIDERS: Visit Provider Nurse Practitioner Family
DX: I48.91 Unspecified atrial fibrillation (principal); I10 Essential (primary) hypertension; R94.39 Abnormal result of other cardiovascular function study
CPT/HCPCS: 93010; 99214

== ENCOUNTER → 2022-09-02 15:15 | Outpatient (BNVA) | payer OTHER, MEDICAID, SELFPAY | PROVIDERS: Visit Provider Nurse Practitioner Family | DX: I48.91 Unspecified atrial fibrillation (principal); I10 Essential (primary) hypertension; R94.39 Abnormal result of other cardiovascular function study | CPT/HCPCS: 93005; 99212 ==

== ENCOUNTER 2022-09-05 05:22 | Emergency (ER) | payer OTHER, SELFPAY ==
--- NOTE | ~2022-09-05 | XR_ITS ---
EXAMINATION: XR HIP, RIGHT CLINICAL INFORMATION: Acute right hip and pelvic pain after fall COMPARISON: 04/18/2020 TECHNIQUE: Two views of the right hip. AP view of the pelvis. FINDINGS: There is existing posterior fusion hardware from L4 through S1. There is no fracture or dislocation. The hips are appropriately aligned with joint space narrowing bilaterally. The sacroiliac joints and pubic symphysis are well aligned. Normal bowel gas pattern. XR/XR hip RT w PEL1V IMPRESSION: No fracture or malalignment. Mild degenerative change of the hips.
[2022-09-05 05:24] VITALS: BP 130/90; BP 150/82; PULSE 102; PULSE 122; RESP 20; TEMP 36.6; O2SAT 96; BMI 32.4
--- OUTSIDE RECORDS SUMMARY | 2022-09-05 06:20 | XMS_ITS | Continuity of Care Document ---
Author Name Unknown Organization [facility] Address [address] [place] [address]- Care Team Providers Care Physical Scientist Name Role Phone Not on Staff, PCP Primary Care Physician Unavail able Encounter [facility] Date(s): 04/22/20 - 05/30/20 [facility] [address] [place] [address]- Attending Physician: Eugenia JOHNSON, Shilpa
--- OUTSIDE RECORDS SUMMARY | 2022-09-05 06:20 | XMS_ITS | Continuity of Care Document ---
Author Name Unknown Organization [facility] Address [address] [place] [address]- Care Team Providers Care Supervisor Toy Assembly Name Role Phone Not on Staff, PCP Primary Care Physician Unavail able [place] [facility] [place] - 12/[place]/[address] [address]- Attending Physician: Rosa Maria Thomas Admitting Physician: AdmtrRosa Maria Referring Physician: Admtr Ar8 Allergies, Adverse Reactions, Alerts Substance Reaction Severity Status aspirin throat gets tight Active Immunizations Given and Recorded Vaccine Date Status Refusal Reason influenza virus vaccine, inactivated 12/04/20 Miller rded SARS-CoV-2 (COVID-19) mRNA BNT-162b2 vac 11/06/20 Recorded SARS-CoV-2 (COVID-19) mRNA BNT-162b2 vac 10/16/20 Recorded SARS-CoV-2 (COVID-19) mRNA BNT-162b2 vac 09/25/20 Recorded Medications Bisoprolol = 25 mg, By Mouth, Daily, 0 Refills, Maintenance, 09/22/21 16:55:00 EDT, Partial fill upon patient request if the prescription is for a schedule II opioid drug. Start Date: 09/22/21 Status: Ordered calcium (as citrate)-vitamin D 315 mg-250 intl units oral tablet 1 tablet, By Mouth, 2 times a day, # 60 tablet, 0 Refills, Maintenance, 09/22/21 16:56:00 EDT, Tablet, Partial fill upon patient request if the prescription is for a schedule II opioid drug. Start Date: 09/22/21 Status: Ordered Lipitor 10 mg oral tablet 1 tablet = 10 mg, By Mouth, Daily, # 30 tablet, 0 Refills, Maintenance, 09/22/21 16:59:00 EDT, Partial fill upon patient request if the prescription is for a schedule II opioid drug. Start Date: 09/22/21 Status: Ordered losartan 25 mg oral tablet 25 mg, 1, tablet, By Mouth, Daily, # 30 tablet, Refills 0, Maintenance, 09/22/21 16:57:00 EDT, Partial fill upon patient request if the prescription is for a schedule II opioid drug. Start Date: 09/22/21 Status: Ordered metFORMIN 500 mg oral tablet 1 tablet = 500 mg, By Mouth, Daily, 0 Refills, Maintenance, 09/22/21 16:58:00 EDT, Partial fill upon patient request if the prescription is for a schedule II opioid drug. Start Date: 09/22/21 Status: Ordered Montelukast = 10 mg, By Mouth, Daily, 0 Refills, Maintenance, 09/22/21 16:58:00 EDT, Partial fill upon patient request if the prescription is for a schedule II opioid drug. Start Date: 09/22/21 Status: Ordered Omeprazole = 20 mg, By Mouth, Daily, 0 Refills, Maintenance, 09/22/21 17:00:00 EDT, Partial fill upon patient request if the prescription is for a schedule II opioid drug. Start Date: 09/22/21 Status: Ordered Synthroid 137 mcg, By Mouth, Daily, Refills 0, Maintenance, 09/22/21 17:00:00 EDT, Partial fill upon patient request if the prescription is for a schedule II opioid drug. Start Date: 09/22/21 Status: Ordered Tramadol = 50 mg, By Mouth, Every 4 hours, PRN Pain , Moderate, 0 Refills, Maintenance, 09/22/21 17:02:00 EDT, Partial fill upon patient request if the prescription is for a schedule II opioid drug. Start Date: 09/22/21 Status: Ordered Vitamin D3 5000 intl units oral capsule 1 capsule = 125 mcg, By Mouth, Daily, with food, # 100 capsule, 0 Refills, Maintenance, 09/22/21 17:00:00 EDT, Capsule, Partial fill upon patient request if the prescription is for a schedule II opioid drug. Start Date: 09/22/21 Status: Ordered Patient Care team information Personnel Name: Not on Staff, PCP
--- OUTSIDE RECORDS SUMMARY | 2022-09-05 06:20 | XMS_ITS | Continuity of Care Document ---
Author Name Unknown Organization [facility] Address [address] [place] [address]- Care Team Providers Care Life Skills Worker Name Role Phone Not on Staff, PCP Primary Care Physician Unavail able [place] [facility] [place] Date(s): 09/24/21 - 09/28/[address] [address]- Discharge Disposition: A-Transfer SNF Attending Physician: Graeme Johnson MD Admitting Physician: Graeme Johnson MD Referring Physician: Graeme Johnson MD Allergies, Adverse Reactions, Alerts Substance Reaction Severity Status aspirin throat gets tight Active Immunizations Given and Recorded Vaccine Date Status Refusal Reason influenza virus vaccine, inactivated 12/04/20 Miller rded SARS-CoV-2 (COVID-19) mRNA BNT-162b2 vac 11/06/20 Recorded SARS-CoV-2 (COVID-19) mRNA BNT-162b2 vac 10/16/20 Recorded SARS-CoV-2 (COVID-19) mRNA BNT-162b2 vac 09/25/20 Recorded Medications acetaminophen-oxyCODONE 325 mg-5 mg oral tablet 2, tablet, By Mouth, Every 4 hours, PRN, # 30 tablet, Refills 0, Tot. Refills 0, Acute, Pain , Moderate, 10/01/21 12:48:00 EDT, 09/24/21 12:47:00 EDT, Route to Pharmacy Electronically, [facility] Tablet, Partial fill upon patient request... Start Date: 09/24/21 Stop Date: 10/01/21 Status: Ordered Bisoprolol = 25 mg, By Mouth, Daily, [...] opioid drug. Start Date: 09/22/21 Status: Ordered oxyCODONE 5 mg oral tablet 5 mg, Tablet, By Mouth, Every 6 hours, For discharge script, PRN for Pain , Moderate, Routine, 09/28/21 16:23:00 EDT Start Date: 09/28/21 Stop Date: 10/05/21 Status: Ordered oxyCODONE 5 mg oral tablet 5 mg, 1, tablet, By Mouth, Every 6 hours, PRN, # 30 tablet, Refills 0, Tot. Refills 0, Acute 10/03/21 12:00:00 EDT, Pain , Moderate, 09/28/21 15:54:00 EDT, Print Requisition, Partial fill upon patient request if the prescription is for a schedule II o... Start Date: 09/28/21 Stop Date: 10/03/21 Status: Ordered Percocet-5/325 325 mg-5 mg oral tablet 2 tablet, Tablet, By Mouth, Every 4 hours, May take less, PRN for Pain , Moderate, Routine, 09/24/21 13:15:00 EDT Start Date: 09/24/21 Stop Date: 09/28/21 Status: Discontinued Synthroid 137 mcg, By Mouth, Daily, Refills [...] opioid drug. Start Date: 09/22/21 Status: Ordered Procedures Procedure Date Related Diagnosis Body Site Status Arthrodesis, posterior or po sterolateral technique, single level; lumbar (with lateral transverse technique, when performed) Completed Results Radiology Reports * Exam Date Time Procedure Performing Provider Status 09/24/21 11:28 AM C-Arm > 1 Hour Rigo Bass ( Verified) Notes: (C-Arm > 1 Hour) Reason For Exam: L4-5 Discectomy and Fusion RESULT: C-Arm > 1 Hour Lumbar Spine 2 or 3 Views, C-Arm > 1 Hour INDICATION: Reason: L4-5 discectomy and fusion COMPARISONS: None TECHNIQUE: Fluoroscopy support was provided. There was no radiologist in attendance. FLUOROSCOPY TIME: 45.1 seconds EXPOSURE: 30.18 mGy TECHNOLOGIST TIME: 1 hour 30 minutes FINDINGS: 2 spot views of the lower lumbosacral spine in frontal and lateral view obtained by the portable image intensifier in the operating room are available for interpretation. There is evidence of posterior fusion L4-L5 and L5-S1 in progress. There is a metallic mesh posterior to L5-S1. There is grade 1 anterolisthesis of L4 over L5. Please refer to the operative report for more details. IMPRESSION: See above. WSN: [id number] Ordering Physician: Graeme Johnson Dictated By: Phil Cazares MD, V Dictated Date/Time: 09/24/21 1:03 pm Reviewed By: Phil Cazares MD, V Signed By: Phil Cazares MD, V Signed Date/Time: 09/24/21 1:03 pm Transcribed By: ERIC Transcribed Date/Time: 09/24/21 1:00 pm * Exam Date Time Procedure Performing Provider Status 09/24/21 11:28 AM Lumbar Spine 2 or 3 Views Davion Bass; Rosemary (Verified) Notes: (Lumbar Spine 2 or 3 Views) Reason For Exam: L4-5 discectomy and fusion RESULT: Lumbar Spine 2 or 3 Views Lumbar Spine 2 or 3 Views, C-Arm > 1 Hour INDICATION: Reason: L4-5 discectomy and fusion COMPARISONS: None TECHNIQUE: Fluoroscopy support was provided. There was no radiologist in attendance. FLUOROSCOPY TIME: 45.1 seconds EXPOSURE: 30.18 mGy TECHNOLOGIST TIME: 1 hour 30 minutes FINDINGS: 2 spot views of the lower lumbosacral spine in frontal and lateral view obtained by the portable image intensifier in the operating room are available for interpretation. There is evidence of posterior fusion L4-L5 and L5-S1 in progress. There is a metallic mesh posterior to L5-S1. There is grade 1 anterolisthesis of L4 over L5. Please refer to the operative report for more details. IMPRESSION: See above. WSN: [id number] Ordering Physician: Graeme Johnson Dictated By: Phil Cazares MD, V Dictated Date/Time: 09/24/21 1:03 pm Reviewed By: Phil Cazares MD, V Signed By: Phil Cazares MD, V Signed Date/Time: 09/24/21 1:03 pm Transcribed By: ERIC Transcribed Date/Time: 09/24/21 1:00 pm Vital Signs Most recent to oldest [Reference Range]: 1 2 3 Height 155 cm (09/27/21 7:56 PM) 155 cm (09/27/21 4:00 AM) 155 cm (09/26/21 8:00 PM) Weight 70.45 kg (09/25/21 4:00 AM) 70.45 kg (09/24/21 11:00 PM) 70.45 kg (09/24/21 7:00 PM) Oxygen Saturation [94-100 %] 95 % (09/28/21 11:00 AM) 97 % (09/28/21 7:00 AM) 96 % (09/28/21 4:00 AM) Pulse Rate [55-90 bpm] 80 bpm (09/28/21 11:00 AM) 78 bpm (09/28/21 7:00 AM) 82 bpm (09/28/21 4:00 AM) Body Mass Index [18.5-24.99] 29.32 *H* (09/24/21 2:09 PM) 29.32 *H* (09/24/21 8:33 AM) 29.32 *H* (09/22/21 4:50 PM) Blood Pressure [90-138/55-84 mm Hg] 98/54mm Hg (09/28/21 11:00 AM) 110/51mm Hg (09/28/21 7:00 AM) 122/66mm Hg (09/28/21 4:00 AM) Respiratory Rate [16-30 br/min] 18 br/min (09/28/21 5:36 PM) 18 br/min (09/28/21 11:00 AM) 18 br/min (09/28/21 9:22 AM) Temperature [96.8-100.4 DegF] 98.1 DegF (09/28/21 11:00 AM) 97.8 DegF (09/28/21 7:00 AM) 98.4 DegF (09/28/21 4:00 AM) Liters per Minute 6 L/min (09/24/21 12:15 PM) Mode of Delivery (Oxygen) Room air (09/28/21 11:00 AM) Room air (09/28/21 7:00 AM) Room air (09/28/21 4:00 AM) Blood pressure sites Arm, left (09/28/21 11:00 AM) Arm, left (09/28/21 7:00 AM) Arm, left (09/28/21 4:00 AM) Temperature Route Oral (09/28/21 11:00 AM) Oral (09/28/21 7:00 AM) Oral (09/28/21 4:00 AM) Dry Weight 70.45 kg (09/24/21 2:09 PM) 70.45 kg (09/22/21 4:50 PM)
--- OUTSIDE RECORDS SUMMARY | 2022-09-05 06:20 | XMS_ITS | Continuity of Care Document ---
Author Name Unknown Organization [facility] Address [address] [place] [address]- Care Team Providers Care Floor Covering Printer Assistant Name Role Phone Not on Staff, PCP Primary Care Physician Unavail able [place] [facility] [place] 11/04/21 - 12/09/[address] [address]- Attending Physician: Carlitos Rodriguez MD Admitting Physician: Carlitos Rodriguez MD Referring Physician: Elizabeth JOHNSON, Graeme Singh Allergies, Adverse Reactions, Alerts Substance Reaction Severity [...]
--- OUTSIDE RECORDS SUMMARY | 2022-09-05 06:20 | XMS_ITS | Continuity of Care Document ---
Author Name Unknown Organization [facility] ter Address [address] [place] [address]- Care Team Providers Care Warehouse Supervisor 3Rd Shift Name Role Phone Not on Staff, PCP Primary Care Physician Unavail able [place] [facility] [place] 08/05/22 - 09/04/[address] [address]- Attending Physician: Not on Staff, Attending MD Admitting Physician: Not on Staff, Admitting MD Referring Physician: Not on Staff, Referring MD Allergies, Adverse Reactions, Alerts Substance Reaction [...] 09/22/21 Status: Ordered Patient Care team information Care Team Personnel Name: Arleen Noe RN Position: S RN Member Role: Primary Care Nurse Name: Not on Staff, PCP Position: [facility] Physician (General Medicine) Member Role: PCP Name: Kaycee Arteaga RN Position: [facility] RN Member Role: Primary Care Nurse Care Team Related Persons Name: MONY CRAIG
--- OUTSIDE RECORDS SUMMARY | 2022-09-05 06:20 | XMS_ITS | Patient Health Record ---
Author Name Unknown [facility] Address [address] [facility] [place] [place] [address] Care Team Providers Care Autos Disassembler Name Role Phone Carlitos Rodriguez Primary Care Provider Unavaila ble Black, Robina Unavailable [phone] Kathleen Stoddard MD Unavailable Unavailable ALLERGIES Allergen (clinical drug ingredient) Drug/Non Drug Allergy documented on EMR Reaction Allergy Type Onset Date Status aspirin Aspirin Unknown Drug Allergy Active REASON FOR REFERRAL No Information MEDICATIONS Medication SIG (Take, Route, Frequency, Duration) Notes Start Date End Date Status Jardiance Not-Taking Magnesium Active Januvia Not-Taking Vitamin E Active metFORMIN HCl 500 MG 1 tablet with a birgit l Orally Once a day for 30 day(s) Active Vitamin C Active Hydrocortisone 2.5 % as directed Externa lly to feet Twice a day for 30 days Active Probiotic Active Co Q 10 Active Calcium Active Vitamin D Active traMADol HCl Active Losartan Potassium A ctive Synthroid Active IMMUNIZATIONS Vaccine Route Administration Date Status Comme nts Influenza Unknown 01/07/2021 Administered SOCIAL HISTORY Tobacco Use: Social History Observation Description Date Details (start date - stop date) Former Smoker NA - NA Sex Assigned At : Social History Observation Description Sex Assigned At Unknown Tobacco Use/Smoking Question Answer Notes Are you a: former smoker Additional Findings: Tobacco Non-User Current no n-smoker Alcohol Screen Question Answer Notes Did you have a drink containing alcohol in the p ast year? No Points 0 Interpretation Negative Tobacco use other than smoking: Question Answer Notes Are you an other tobacco user? No PROBLEMS Problem Type ICD Code Onset Dates Problem Status W/U Status Risk SNOMED Code Notes Problem Primary osteoarthritis, right ankle and foot (M19.071) Active confirmed Localized, primary osteoarthritis of the ankle and/or foot (741750556) Problem Primary osteoarthritis, left ankle and foot (M19.072) Active confirmed Localized, primary osteoarthritis of the ankle and/or foot (775793536) Problem Hallux valgus (acquired), right foot (M20.11) Active confirmed Acquired hallu x valgus (31899269) Problem Other hammer toe(s) (acquired), right foot (M20.41) Active confirmed Acquired hamme r toe of right foot (5865722768888432 ) Problem Other hammer toe(s) (acquired), left foot (M20.42) Active confirmed Acquired hamme r toe of left foot (3222801797850824 ) Problem Type 2 diabetes mellitus with diabetic polyneuropathy (E11.42) Active confirmed Polyneuropathy due to type 2 diabetes mellitus (664085718) Problem Type 1 diabetes mellitus with diabetic polyneuropathy (E10.42) Active confirmed Polyneuropathy due to diabetes mellitus type I (292321319) Encounters Encounter Location Date Provider Diagnosis [facility] [address] [address] 09/29/2021 Robinatanvi Olmedo [facility] [address] [address] 10/01/2021 [facility] [address] 05/05/2022 [facility] [address] 05/06/2022 [facility] [address] [address] 06/21/2022 [facility] [address] 06/21/2022 Robina Olmedo PLAN OF TREATMENT Pending Test Test Name Order Date Tc99 3 phase Bone Scan 07/28/2020 [id number] SKIN LESIONS, 2 TO 4 03/16/19 [id number] NAIL(S) 03/16/2021 Insurance Providers Payer Name Payer Address Payer Phone Subscriber Number Group Number Insured Name Patient Relationship to Insured Coverage Start Date Coverage End Date [facility] [employer] Claims [address] [place] [address] [phone] [id number] Teresa Andrews Self - patient is the insured MEDICAL (GENERAL) HISTORY Medical History History ICD Code Anxiety asthma Back,Hip,and Knee pain Broken bones CAD (Cholesterol) type II diabetes Fibromyalgia Gall bladder problems High blood pressure chronic sinusitis thyroid Surgical History Surgery Date(Month/Year) hysterectomy wisdom teeth extraction colonoscopy endoscopy
--- OUTSIDE RECORDS SUMMARY | 2022-09-05 06:20 | XMS_ITS | Continuity of Care Document ---
Author Name Unknown Organization [facility] Address [address] [place] [address]- Care Team Providers Care School Plant Consultant Name Role Phone Not on Staff, PCP Primary Care Physician Unavail able Encounter [facility] Date(s): 04/30/20 - 05/30/20 [facility] [address] [place] [address]- Attending Physician: Rosa Maria Thomas Admitting Physician: Rosa Maria Thomas Referring Physician: Rosa Maria Thomas
--- OUTSIDE RECORDS SUMMARY | 2022-09-05 06:20 | XMS_ITS | Continuity of Care Document ---
Author Name Unknown Organization [facility] ter Address [address] [place] [address]- Care Team Providers Care Clinical Abstractor Name Role Phone Not on Staff, PCP Primary Care Physician Unavail able Encounter [facility] [place] Date(s): 06/02/22 - 07/09/[address] [address]- Attending Physician: Chase Jo MD Admitting Physician: Chase Jo MD Allergies, Adverse Reactions, Alerts Substance Reaction [...] opioid drug. Start Date: 09/22/21 Status: Ordered History and physical note * Event Display: History and Physical Hospital Authored Date: [id number] Patient Care team information Care Team Personnel Name: Arleen Noe RN Position: [facility] RN Member Role: Primary Care Nurse Name: Not on Staff, PCP Position: [facility] Physician (General Medicine) Member Role: PCP Name: Kaycee Arteaga RN Position: [facility] RN Member Role: Primary Care Nurse Care Team Related Persons Name: MONY CRAIG
[2022-09-05 06:24] LABS: Appearance Urine Clear; Color Urine Yellow; Glucose Urine UA Negative (Negative); Leukocyte Esterase Urine Negative (Negative); Nitrite Urine Negative (Negative); PH 6.5 (5.0-9.0); Specific Gravity - Urine <= 1.005 (1.005-1.025); Urine Blood Negative (Negative); Urine Ketones Negative (Negative); Urine Protein Negative (Neg-Trace)
[2022-09-05 06:29] LABS: Bacteria Urine None Seen (None Seen); Hyaline Casts Urine 0-2 /LPF (0-2); RBC Urine 0-2 /HPF (0-2); WBC Urine 0-5 /HPF (0-5)
--- NOTE | 2022-09-05 06:31 | ED.FALL ---
HPI - Fall General Chief Complaint: Fall Stated Complaint: Fall Time Seen by Provider: 09/05/22 05:28 Source: patient and EMS Mode of arrival: EMS Limitations: no limitations History of Present Illness HPI Narrative: 77-year-old female presents with right hip pain. Patient fell out of bed this morning. She has restless legs and she fell out of bed due to inability to stop moving. She actually fell out of bed 1 week ago as well. Today, she has mild pain. The pain is worse with movement and palpation. The pain does not radiate. Patient describes her pain is aching in nature. She has been ambulatory. Patient denies any her head or loss consciousness. She denies any chest pain, shortness breath, palpitations. Related Data Home Medications Medication Instructions Recorded Confirmed blood sugar diagnostic #10 ea 11/23/19 09/02/22 montelukast 10 mg tablet 10 mg PO BEDTIME 11/23/19 09/02/22 ezetimibe 10 mg tablet 10 mg PO DAILY 06/17/22 09/02/22 rivaroxaban 20 mg tablet (Xarelto) 20 mg PO DAILY@1800 06/17/22 09/02/22 albuterol sulfate 90 mcg/actuation 2 puff inhalation Q4-6H PRN dyspnea 07/24/22 09/02/22 aerosol inhaler (Ventolin HFA) calcium citrate 315 mg-vitamin D3 2 tab PO DAILY 07/24/22 09/02/22 5 mcg (200 unit) tablet (Calcium Citrate + D) clonazepam 0.125 mg disintegrating 0.125 - 0.25 mg PO BEDTIME PRN 07/24/22 09/02/22 tablet Restless Leg(S) fluticasone 500 mcg-salmeterol 50 1 ea PO DAILY 07/24/22 09/02/22 mcg/dose blistr powdr for inhalation furosemide 20 mg tablet 20 mg PO DAILY 07/24/22 09/02/22 levothyroxine 137 mcg tablet 137 mcg PO DAILY@0600 07/24/22 09/02/22 losartan 25 mg tablet 25 mg PO BEDTIME 07/24/22 09/02/22 metformin 500 mg tablet,extended 500 mg PO DAILY@1800 07/24/22 09/02/22 release 24 hr omeprazole 20 mg capsule,delayed 20 mg PO DAILY@0630 07/24/22 09/02/22 release tramadol 50 mg tablet 50 mg PO Q12H PRN severe pain 07/24/22 09/02/22 Previous Rx's Medication Instructions Recorded walker #1 ea 02/29/20 blood-glucose meter (FreeStyle #1 ea 06/19/20 Lite Meter kit) lancets 28 gauge (FreeStyle #100 ea 06/19/20 Lancets) blood sugar diagnostic (FreeStyle #100 ea 11/12/21 Lite Strips) cholecalciferol (vitamin D3) 50 50 mcg PO DAILY 90 days #90 caps 11/27/21 mcg (2,000 unit) capsule bisoprolol fumarate 5 mg tablet 5 mg PO DAILY #30 tabs 07/29/22 Allergies Allergy/AdvReac Type Severity Reaction Status Date / Time aspirin [ASPIRIN] Allergy Severe ANAPHYLAXIS Verified 09/02/22 15:29 Seasonal Allergies Allergy Intermediate asthma, Verified 09/02/22 15:29 itch, rash Review of Systems Review of Systems: CONSTITUTIONAL: Denies weight loss, fever and chills. HEENT: Denies changes in vision and hearing. RESPIRATORY: Denies SOB and cough. CV: Denies palpitations no CP. GI: Denies abdominal pain, nausea, vomiting and diarrhea. : Denies dysuria and urinary frequency. MSK: + myalgia and joint pain. SKIN: Denies rash and pruritus. NEUROLOGICAL: Denies headache and syncope. PSYCHIATRIC: Denies recent changes in mood. Denies anxiety and depression. All other ROS are negative unless in HPI PMFSH Past Medical History Medical History Addiction, opium Arthritis Autoimmune thyroiditis CHF (congestive heart failure) Depression with anxiety Diabetes type 2, uncontrolled Dyslipidemia Essential hypertension Hypothyroidism (acquired) Obesity (BMI 30-39.9) Osteopenia Overweight (BMI 25.0-29.9) Restless leg syndrome Vitamin D deficiency Surgical History History of radical hysterectomy Hx of arthroscopy of knee Hx of cataract surgery Family History Family History Father Diabetes Mother No problems noted. Son Substance use disorder Social History Social History Household Members: None Housing: Condominium Do you presently have visiting nurse or other home services: Yes Unable to assess alcohol history related to: Unable to respond Alcohol intake: never Patient Tobacco Use Status: Former Tobacco user e-Cigarette/Vaping Use: Never Used Second Hand Smoke Exposure: No Advance Directives: No Advance Directives Information Provided: No service: No Current occupational status: retired Physical Exam Vital Signs: Vital Signs: Last Vital Signs Temp 97.8 F 09/05/22 05:24 Pulse 102 H 09/05/22 05:24 Resp 20 09/05/22 05:24 BP 150/82 H 09/05/22 05:24 Pulse Ox 96 09/05/22 05:24 O2 Del Method Room Air 09/05/22 05:24 BMI result Body Mass Index 32.4 GEN: Well developed, no acute distress, alert, oriented HEENT: Normocephalic, atraumatic, normal external ears, nose appears normal Eyes: Normal to appearance Neck: Supple, no lymphadenopathy Respiratory: Talks in complete sentences, no respiratory distress Extremities: No clubbing cyanosis or edema, no deformity, no external rotation or shortening. Neurologic: No focal neurologic deficits, cranial nerves 2-12 intact, gait normal Skin: No rash Course Course Course Narrative: Patient's workup is complete. Patient has restless leg. She is quite restless in her bed here. X-ray shows no evidence of fracture. Patient will be discharged at this time. Medical Decision Making Medical Decision Making [facility] Narrative: 77-year-old female presents with right pelvic and right hip pain. This occurred after a fall. She denied any head injury or trauma. I will obtain an x-ray of the pelvis and hip to rule out acute fracture. There is no indication for emergent CT scan of the head to rule out intracranial bleeding as she had no head trauma. She denies any headache, nausea vomiting. Differential diagnosis includes fracture, contusion, sprain, strain Differential Diagnosis Differential Diagnoses: The differential diagnosis associated with the presentation includes (See above) Admission/Observation Consideration of admission/observation: Escalation of care including admission/observation considered Lab Data [facility] Lab Attestation statement: I reviewed the patient's lab results. Labs: Lab Results 09/05/22 09/05/22 Range/Units 06:15 06:15 Urine Color Yellow Urine Appearance Clear Urine pH 6.5 (5.0-9.0) Ur Specific [place] <= 1.005 (1.005-1.025) Urine Protein Negative (Neg-Trace) mg/dL Urine Glucose (UA) Negative (Negative) mg/dL Urine Ketones Negative (Negative) mg/dL Urine Blood Negative (Negative) Urine Nitrite Negative (Negative) Ur Leukocyte Esterase Negative (Negative) Urine RBC 0-2 (0-2) /HPF Urine WBC 0-5 (0-5) /HPF Ur Squamous Epith Cells 3-5 (0-2) /HPF Urine Bacteria None Seen (None Seen) Hyaline Casts 0-2 (0-2) /LPF Urine Opiates Screen Not Detected (Not Detect) Urine Fentanyl Screen Not Detected (Not Detect) Ur Barbiturates Screen Not Detected (Not Detect) Ur Phencyclidine Scrn Not Detected (Not Detect) Ur Amphetamines Screen Not Detected (Not Detect) U Benzodiazepines Scrn Not Detected (Not Detect) Urine Cocaine Screen Not Detected (Not Detect) U Marijuana (THC) Screen Not Detected (Not Detect) Independent Interpretation I performed an independent interpretation of an: Plain X-Ray (No acute buttock injury) Radiology Impression Discussion of test interpretation with radiology: I have reviewed the radiologist's reading. Radiologist Impression: Impression right hip with pelvis: No fracture or malalignment. Mild degenerative change of the hips. Independent Historian Clinical information obtained from an independent historian. History obtained from or confirmed by: EMS Prescription Management I considered prescription management with: Pain Medication Discharge Plan Discharge Clinical Impression: Accidental fall, Contusion of hip Patient Disposition: Home, Self-Care Instructions: Fall Prevention (ED), Hip Contusion (ED) Prescriptions: No Action (DME) blood-glucose meter [FreeStyle Lite Meter] Kit See Rx Instructions miscellaneous .MEDSUPPLY Qty: 1 0RF Rx Instructions: 3 times a day (DME) lancets [FreeStyle Lancets] 28 gauge misc See Rx Instructions .MEDSUPPLY Qty: 100 8RF Rx Instructions: Twice a day (DME) FreeStyle Lite Strips Strip See Rx Instructions .MEDSUPPLY Qty: 100 6RF Rx Instructions: 2 times a day levothyroxine 137 mcg tablet 137 mcg PO DAILY@0600 furosemide 20 mg tablet 20 mg PO DAILY clonazepam 0.125 mg tablet,disintegrating 0.125 - 0.25 mg PO BEDTIME PRN (Reason: Restless Leg(S)) tramadol 50 mg tablet 50 mg PO Q12H PRN (Reason: severe pain) omeprazole 20 mg capsule,delayed release(DR/EC) 20 mg PO DAILY@0630 albuterol sulfate [Ventolin HFA] 90 mcg/actuation HFA aerosol inhaler 2 puff INHALATION Q4-6H PRN (Reason: dyspnea) fluticasone propion-salmeterol 500-50 mcg/dose blister with device 1 ea PO DAILY losartan 25 mg tablet 25 mg PO BEDTIME metformin 500 mg tablet extended release 24 hr 500 mg PO DAILY@1800 calcium citrate-vitamin D3 [Calcium Citrate + D] 315 mg-5 mcg (200 unit) tablet 2 tab PO DAILY bisoprolol fumarate 5 mg Tablet 5 mg PO DAILY Qty: 30 0RF (DME) walker Misc See Rx Instructions .MEDSUPPLY Qty: 1 0RF Rx Instructions: Walker without wheels montelukast 10 mg tablet 10 mg PO BEDTIME (DME) blood sugar diagnostic Strip See Rx Instructions Not Applicable BID Qty: 10 Rx Instructions: As directed cholecalciferol (vitamin D3) 50 mcg (2,000 unit) capsule 50 mcg PO DAILY 90 Days Qty: 90 2RF ezetimibe 10 mg tablet 10 mg PO DAILY Xarelto 20 mg tablet 20 mg PO DAILY@1800 Referrals: Jo Sanchez MD [Primary Care Provider] - 5 days
[2022-09-05 06:34] LABS: Amphetamine Screen Urine Not Detected (Not Detect); Barbiturates, Urine Not Detected (Not Detect); Benzodiazepines Screen Urine Not Detected (Not Detect); Cannabinoid Screen Urine Not Detected (Not Detect); Cocaine Screen Urine Not Detected (Not Detect); Fentanyl, urine Not Detected (Not Detect); Opiate Screen Urine Not Detected (Not Detect); Phencyclidine Screen Urine Not Detected (Not Detect)
== END 2022-09-05 06:50 | disposition home or self-care (01) ==
PROVIDERS: Emergency Provider Emergency Medicine; PCP Student in an Organized Health Care Education/Training Program
DX: S79.911A Unspecified injury of right hip, initial encounter (principal); G25.81 Restless legs syndrome; R10.2 Pelvic and perineal pain; W06.XXXA Fall from bed, initial encounter; Y93.9 Activity, unspecified; Y92.9 Unspecified place or not applicable; Y99.9 Unspecified external cause status; Z79.899 Other long term (current) drug therapy
CPT/HCPCS: 73502; 80307; 81001; 99284

== ENCOUNTER 2022-09-10 09:26 | Emergency (ER) | payer OTHER, SELFPAY ==
--- NOTE | ~2022-09-10 | XR_ITS ---
EXAMINATION: XR SHOULDER, RIGHT CLINICAL INFORMATION: Right shoulder pain status post fall. COMPARISON: None available. TECHNIQUE: Three views of the right shoulder. FINDINGS: Mild glenohumeral and acromioclavicular degenerative joint changes are seen. Mild calcification is seen at the rotator cuff insertion on the greater tuberosity. There is no acute fracture or dislocation. The adjacent ribs appear intact. The soft tissues are unremarkable. XR/XR shoulder RT min 2V IMPRESSION: Mild degenerative changes without definitive acute abnormality.
--- NOTE | ~2022-09-10 | XR_ITS ---
EXAMINATION: XR LUMBOSACRAL SPINE CLINICAL INFORMATION: Low back pain status post fall. COMPARISON: Lumbar spine radiographs dated 04/02/2017. TECHNIQUE: Three views of the lumbosacral spine. FINDINGS: The patient is status post posterior fusion from L4 to S1 with bilateral pedicle screws and posterior fixation rods in place. Mild to severe multilevel degenerative changes are seen most pronounced at L4-5 and L5-S1. There is a persistent mild grade 1 anterolisthesis of L4 over L5. No acute fractures seen. The soft tissues are unremarkable. XR/XR lumbar spine 2-3V IMPRESSION: 1. No hardware abnormality. No acute fracture. 2. Mild to severe multilevel degenerative changes and L4-L5 grade 1 anterolisthesis without significant change.
--- NOTE | ~2022-09-10 | XR_ITS ---
EXAMINATION: XR SACRUM AND COCCYX CLINICAL INFORMATION: Pain status post fall. COMPARISON: None available. TECHNIQUE: 2 views of the sacrum and 2 views of the coccyx were obtained. FINDINGS: There is normal sacrococcygeal curvature. No acute fracture is seen. Posterior fusion hardware from L4 to S1 is intact without abnormality. Mild to moderate degenerative changes in the visualized inferior lumbar spine. The soft tissues are unremarkable. XR/XR sacrum coccyx min 2V IMPRESSION: No acute sacrococcygeal abnormality.
--- NOTE | ~2022-09-10 | XR_ITS ---
EXAMINATION: XR SHOULDER, LEFT CLINICAL INFORMATION: Left shoulder pain status post fall. COMPARISON: None available. TECHNIQUE: Three views of the left shoulder. FINDINGS: Mild glenohumeral and acromioclavicular degenerative joint changes are seen. Mild calcification is seen at the rotator cuff insertion on the greater tuberosity. There is no acute fracture or dislocation. The adjacent ribs appear intact. The soft tissues are unremarkable. XR/XR shoulder LT min 2V IMPRESSION: Mild degenerative changes without definitive acute abnormality.
--- NOTE | ~2022-09-10 | XR_ITS ---
EXAMINATION: XR BILATERAL HIPS WITH AP PELVIS CLINICAL INFORMATION: Pain after falls. COMPARISON: None available. TECHNIQUE: AP view of the pelvis and single views of each hip were obtained. FINDINGS: Minimal bilateral hip degenerative joint changes are seen. There is no acute fracture or dislocation. The bony pelvis is intact with the soft tissues are unremarkable. XR/XR hip BI w PEL1V IMPRESSION: Minimal bilateral hip osteoarthritis. No acute fracture.
[2022-09-10 09:38] VITALS: BP 139/57; BP 140/88; PULSE 82; PULSE 89; RESP 18; TEMP 36.4; O2SAT 97; O2SAT 99; BMI 30.7
--- NOTE | 2022-09-10 09:46 | PC.NURSE ---
pt a&ox3, vss, nsr on the court recording monitor. pt comes in from home after falling out of bed. pt has had an increase in falls within the past week (3x). pt went to [employer] yesterday after falling down and hitting her head. pt denies LOC but states that she is on blood thinners. pt has slight bruising on center/top of forehead d/t hitting head yesterday. pt verbalizing 8/10 all over her body but her lower back is where it hurts the most. pt states she has restless leg syndrome and feels very uncomfortable sitting in the bed and does not want to stay. call de leon placed within reach. will continue to monitor.
--- OUTSIDE RECORDS SUMMARY | 2022-09-10 09:53 | XMS_ITS | Patient Health Record ---
Author Name Unknown [facility] Address [address] [place] [address] Care Team Providers Care Rehab Office Coordinator Name Role Phone Carlitos Rodriguez Primary Care Provider Unavaila ble Black, Robina Unavailable [phone] Kathleen Stoddard MD Unavailable Unavailable ALLERGIES Allergen [...] primary osteoarthritis of the ankle and/or foot (652068401) Problem Primary osteoarthritis, left ankle and foot (M19.072) Active confirmed Localized, primary osteoarthritis of the ankle and/or foot (186737192) Problem Hallux valgus (acquired), right foot (M20.11) Active confirmed Acquired hallu x valgus (79524150) Problem Other hammer toe(s) (acquired), right foot (M20.41) Active confirmed Acquired hamme r toe of right foot (1683343351233944 ) Problem Other hammer toe(s) (acquired), left foot (M20.42) Active confirmed Acquired hamme r toe of left foot (0349318552314066 ) Problem Type 2 diabetes mellitus with diabetic polyneuropathy (E11.42) Active confirmed Polyneuropathy due to type 2 diabetes mellitus (994126198) Problem Type 1 diabetes mellitus with diabetic polyneuropathy (E10.42) Active confirmed Polyneuropathy due to diabetes mellitus type I (466014031) Encounters Encounter Location Date Provider Diagnosis [facility] [address] [address] 09/29/2021 Robina Olemdo [facility] [address] [address] 10/01/2021 Robina Olmedo [facility] [address] 05/05/2022 Robinachantal Olmedo [facility] [address] 05/06/2022 [facility] [address] [address] 06/21/2022 Robina Olmedo [facility] [address] 06/21/2022 Robina Olmedo PLAN OF TREATMENT Pending Test Test Name Order Date Tc99 3 phase Bone Scan 07/28/2020 [id number] SKIN LESIONS, 2 TO 4 03/16/19 [id number] NAIL(S) 03/16/2021 Next Appt Details Provider Name:Robina Olmedo , 11/11/2022 09:00:00 AM, [address] [place], [address], Insurance Providers Payer Name Payer Address Payer Phone Subscriber Number Group Number Insured Name Patient Relationship to Insured Coverage Start Date Coverage End Date [facility] [employer] [address] [place] [address] [phone] [id number] Teresa Andrews Self - patient is the insured MEDICAL (GENERAL) HISTORY Medical History History ICD Code Anxiety asthma Back,Hip,and Knee pain Broken bones CAD (Cholesterol) type II diabetes Fibromyalgia Gall bladder problems High blood pressure chronic sinusitis thyroid Surgical History Surgery Date(Month/Year) hysterectomy wisdom teeth extraction colonoscopy endoscopy
--- NOTE | 2022-09-10 10:06 | ED.GENADULT ---
HPI - General Adult General Chief complaint: Fall Stated complaint: Dizziness, 3 falls in the past week per EMS Time Seen by Provider: 09/10/22 09:58 Source: patient Mode of arrival: ambulatory History of Present Illness HPI narrative: 77 yold female with pmh of restleg syndrome, afib, toxic metabloic encephalopathy presents to the ED for for mutiple falls due to her restleg syndrome. patient states this morning she fell out of her bed due to restleg syndrome. patient states having severe restleg syndrome which caused her to fall off the bed unto her back and complains of back/hip/bilateral shoulder pain. patient denies hitting head on the ground. patient was seen last night at [facility] for fall also caused by restleg syndrome and she hit her head that time. patient states normal imaging and workup at [facility]. patient states she is on plenty of meds for restlegsyndrome prescribed by her Neurologist at [facility]. patient states her NEurologist is aware of severe REstleg syndrome and causing her many falls. patient states pmh of muliple falls due to REstleg syndrome. 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 Patient lives alone. Patient denies any chest pain, shortness of breath, abdominal pain, dizziness like the room spinning, weakness, fever, or chills. Related Data Home Medications Medication Instructions Recorded Confirmed blood sugar diagnostic #10 ea 11/23/19 09/02/22 montelukast 10 mg tablet 10 mg PO BEDTIME 11/23/19 09/02/22 ezetimibe 10 mg tablet 10 mg PO DAILY 06/17/22 09/02/22 rivaroxaban 20 mg tablet (Xarelto) 20 mg PO DAILY@1800 06/17/22 09/02/22 albuterol sulfate 90 mcg/actuation 2 puff inhalation Q4-6H PRN dyspnea 07/24/22 09/02/22 aerosol inhaler (Ventolin HFA) calcium citrate 315 mg-vitamin D3 2 tab PO DAILY 07/24/22 09/02/22 5 mcg (200 unit) tablet (Calcium Citrate + D) clonazepam 0.125 mg disintegrating 0.125 - 0.25 mg PO BEDTIME PRN 07/24/22 09/02/22 tablet Restless Leg(S) fluticasone 500 mcg-salmeterol 50 1 ea PO DAILY 07/24/22 09/02/22 mcg/dose blistr powdr for inhalation furosemide 20 mg tablet 20 mg PO DAILY 07/24/22 09/02/22 levothyroxine 137 mcg tablet 137 mcg PO DAILY@0600 07/24/22 09/02/22 losartan 25 mg tablet 25 mg PO BEDTIME 07/24/22 09/02/22 metformin 500 mg tablet,extended 500 mg PO DAILY@1800 07/24/22 09/02/22 release 24 hr omeprazole 20 mg capsule,delayed 20 mg PO DAILY@0630 07/24/22 09/02/22 release tramadol 50 mg tablet 50 mg PO Q12H PRN severe pain 07/24/22 09/02/22 Previous Rx's Medication Instructions Recorded walker #1 ea 02/29/20 blood-glucose meter (FreeStyle #1 ea 06/19/20 Lite Meter kit) lancets 28 gauge (FreeStyle #100 ea 06/19/20 Lancets) blood sugar diagnostic (FreeStyle #100 ea 11/12/21 Lite Strips) cholecalciferol (vitamin D3) 50 50 mcg PO DAILY 90 days #90 caps 11/27/21 mcg (2,000 unit) capsule bisoprolol fumarate 5 mg tablet 5 mg PO DAILY #30 tabs 07/29/22 Allergies Allergy/AdvReac Type Severity Reaction Status Date / Time aspirin [ASPIRIN] Allergy Severe ANAPHYLAXIS Verified 09/02/22 15:29 Seasonal Allergies Allergy Intermediate asthma, Verified 09/10/22 09:38 itch, rash Review of Systems Review of Systems: Back sacral pain, bilateral hip pain, arm pain due to fall Yes all other systems are reviewed and are negative [facility] Past Medical History Medical History Addiction, opium Arthritis Autoimmune thyroiditis CHF (congestive heart failure) Depression with anxiety Diabetes type 2, uncontrolled Dyslipidemia Essential hypertension Hypothyroidism (acquired) Obesity (BMI 30-39.9) Osteopenia Overweight (BMI 25.0-29.9) Restless leg syndrome Vitamin D deficiency Surgical History History of radical hysterectomy Hx of arthroscopy of knee Hx of cataract surgery Family History Family History Father Diabetes Mother No problems noted. Son Substance use disorder Social History Social History Household Members: None Housing: Condominium Do you presently have visiting nurse or other home services: Yes Unable to assess alcohol history related to: Unable to respond Alcohol intake: never Patient Tobacco Use Status: Former Tobacco user Smoked in Last 30 Days: No e-Cigarette/Vaping Use: Never Used Second Hand Smoke Exposure: No Use of substances other than those prescribed or required for medical reasons: No Advance Directives: Yes Advance Directives on File: Yes Advance Directives Date on File: 07/30/22 service: No Current occupational status: retired Physical Exam ED Vital Signs: Vital Signs - 24 hr 09/10/22 09:38 09/10/22 12:03 09/10/22 13:18 Temperature 97.6 F Pulse Rate 89 98 98 Respiratory Rate 18 16 Blood Pressure 139/57 L 137/59 L 137/59 L Pulse Oximetry 97 95 95 Oxygen Delivery Method Room Air Room Air BMI result Body Mass Index 30.7 Const General: cooperative, healthy appearing, comfortable, no acute distress, well developed, alert, awake and Physically active Orientation/consciousness: patient oriented x3 HENMT Head: Yes normal to inspection, Yes No palpable skull fracture present, Yes normocephalic, Yes atraumatic and No abrasion Head images: 1. Healing resolving hematoma. Patient states this occurred from last night's fall and had a normal CT scan at [facility]. Patient states decrease in size of ecchymosis. Negative for tenderness or crepitus on palpation. Ears: hearing grossly normal bilaterally, external ears normal, TM's normal bilaterally, EAC's normal, mastoids normal and no periauricular adenopathy Eyes General: appearance normal, both eyes and all related structures Neck Neck: Yes normal visual inspection, Yes full ROM, Yes no lymphadenopathy, Yes no meningeal signs, Yes trachea midline, Yes supple, No anterior neck swelling and No tender Chest Chest palpation & inspection: normal inspection of the chest and normal palpation of entire chest wall Resp Effort & Inspection: normal respiratory effort and able to speak in complete sentences Auscultation: clear to auscultation bilaterally Cardio Jugular venous distension: no JVD Heart sounds: S1 normal heart sound present and S2 normal heart sound present GI Inspection: Yes normal to inspection and No abdominal wall ecchymosis Palpation (GI): Soft to palpation, not firm, nontender, no guarding and not rigid General: No CVA tenderness and Yes no CVA tenderness Back/Spine/Pelvis Back: no CVA tenderness, No CVA tenderness and back tenderness (sacral tenderness) Back/spine/pelvis image: 1. Positive for tenderness on palpation. Negative for crepitus, ecchymosis, or deformity. Skin General skin exam: no rashes or lesions noted, elasticity normal and turgor normal Neuro General: patient oriented x3, tone normal, moves all extremities (restless leg presently in the ED), no meningeal signs, no focal motor deficits and CN's II-XI intact bilaterally Extrem General: Yes normal to inspection and Yes full ROM Shoulder/upper arm images: 1. Positive for tenderness. Negative ecchymosis, crepitus, or deformity. Motor/neuro/vascular exam intact 2. Positive for tenderness. Negative ecchymosis, crepitus, or deformity. Motor/neuro/vascular exam intact Upper/lower leg/hip images: 1. Slight tenderness on palpation Psych Appearance: grossly normal and well kempt Medical Decision Making Medical Decision Making MDM Narrative: 77-year-old female history of atrial fibrillation, asthma, restless leg syndrome, and diabetes presents to ED for multiple falls due to restless leg syndrome. Patient states restless leg syndrome has worsened and neurologist is aware and is on many medications. Patient states fall out the bed due to severe restless leg syndrome multiple times. patient was awake the whole time before, during, and after fall. Patient was seen at [facility] for similar presentation with normall head CT scan. Today patient fell onto her back from the bed due to restless legs syndrome. denies any head trauma. Patient denies any chest pain, shortness of breath, headache or dizziness. Patient states bilateral upper shoulder pain, lower back pain, sacral coccyx pain, and hip pain. Imaging ordered. Presently no need for head CT scan due to patient denies any head trauma. Negative for any neuro deficits. patient never postitical and no history of seziures. Patient admits to not being compliant with her walker. !2:52pm; spoke with outsole caser Mariel who recommends patient get physical therapist evaluation. 13:13: I received [facility] notes which showed patient had normal head CT scan and back imaging. Patient is scheduled for EEG at [facility] this weekend as per notes. 1:49pm: Patient has physical therapy evaluation. Physical therapist recommend patient have physical therapy come to her house. teller manager Gregoria states she will arrange physical therapy to come to patient's house and patient can be discharged. Patient was asked about eeg procedure and she states it was done yesterday morning. Patient safe for discharge and will be discharged with her GENERAL CAR YARD SUPERVISOR. Admission/Observation Consideration of admission/observation: Escalation of care including admission/observation considered Consult Healthcare Provider Management of the patient was discussed with: Dredge Mechanic (Physical Therapy and Care Team client support consultant Mandy) Lab Data Labs: Lab Results 09/10/22 09/10/22 Range/Units 12:33 12:55 POC Glucose 96 (60-115) mg/dL COVID-19 (JOSELYN) Negative (Negative) COVID-19 Clin Com See Note Independent Interpretation I performed an independent interpretation of an: Plain X-Ray Radiology Impression Discussion of test interpretation with radiology: I have reviewed the radiologist's reading. Discharge Plan Discharge Clinical Impression: Fall, Restless leg syndrome Patient Disposition: Home, Self-Care Instructions: Fall Prevention for Older Adults (ED), Restless Legs Syndrome (ED) Additional Instructions: Please follow-up with your primary care provider and neurologist for EEG results and re-evaluation. Our outsole caser will organize physical therapy to come to your home couple times per week. Return to the ED immediately for headache, dizziness, nausea, vomiting, chest pain, shortness of breath, slurred speech, facial droop, paralysis of extremities, trouble walking, or any other concerning symptoms. Prescriptions: No Action (DME) blood-glucose meter [FreeStyle Lite Meter] Kit See Rx Instructions miscellaneous .MEDSUPPLY Qty: 1 0RF Rx Instructions: 3 times a day (DME) lancets [FreeStyle Lancets] 28 gauge misc See Rx Instructions .MEDSUPPLY Qty: 100 8RF Rx Instructions: Twice a day (DME) FreeStyle Lite Strips Strip See Rx Instructions .MEDSUPPLY Qty: 100 6RF Rx Instructions: 2 times a day levothyroxine 137 mcg tablet 137 mcg PO DAILY@0600 furosemide 20 mg tablet 20 mg PO DAILY clonazepam 0.125 mg tablet,disintegrating 0.125 - 0.25 mg PO BEDTIME PRN (Reason: Restless Leg(S)) tramadol 50 mg tablet 50 mg PO Q12H PRN (Reason: severe pain) omeprazole 20 mg capsule,delayed release(DR/EC) 20 mg PO DAILY@0630 albuterol sulfate [Ventolin HFA] 90 mcg/actuation HFA aerosol inhaler 2 puff INHALATION Q4-6H PRN (Reason: dyspnea) fluticasone propion-salmeterol 500-50 mcg/dose blister with device 1 ea PO DAILY losartan 25 mg tablet 25 mg PO BEDTIME metformin 500 mg tablet extended release 24 hr 500 mg PO DAILY@1800 calcium citrate-vitamin D3 [Calcium Citrate + D] 315 mg-5 mcg (200 unit) tablet 2 tab PO DAILY bisoprolol fumarate 5 mg Tablet 5 mg PO DAILY Qty: 30 0RF (DME) walker Misc See Rx Instructions .MEDSUPPLY Qty: 1 0RF Rx Instructions: Walker without wheels montelukast 10 mg tablet 10 mg PO BEDTIME (DME) blood sugar diagnostic Strip See Rx Instructions Not Applicable BID Qty: 10 Rx Instructions: As directed cholecalciferol (vitamin D3) 50 mcg (2,000 unit) capsule 50 mcg PO DAILY 90 Days Qty: 90 2RF ezetimibe 10 mg tablet 10 mg PO DAILY Xarelto 20 mg tablet 20 mg PO DAILY@1800 Interventions: ED Discharge Assessment Last Done: 09/10/22 14:08 Discharge Date/Time: 09/10/22 14:09 Print Language: Samoan
[2022-09-10 12:03] VITALS: BP 137/59; PULSE 98; RESP 16; O2SAT 95
[2022-09-10 12:38] LABS: Glucose, Whole Blood 96 mg/dL (60-115)
[2022-09-10 13:18] VITALS: BP 137/59; PULSE 98; O2SAT 95
[2022-09-10 13:49] LABS: COVID-19 Test Negative (Negative); IDNOW Serial# BCCEAD1C
--- NOTE | 2022-09-10 14:54 | MHC.CM.ED ---
Received case management consult from Willie AYERS. Patient came to the ER after falling out of her bed d/t RLS. Work up essentially negative. Physical therapy eval completed. Home therapy is recommended. Patient report to physical therapist that she receives physical therapy at home. Patient's JAVA DEVELOPER ANALYST took patient home prior to being seen by CM. Patient is active with [facility]. T/W spoke with their transitions of care team. Patient is active with [facility] for PT. [facility]. Continue to monitor for d/c needs.
== END 2022-09-10 14:09 | disposition home or self-care (01) ==
PROVIDERS: Physician Assistant; Emergency Provider Emergency Medicine; PCP Student in an Organized Health Care Education/Training Program
DX: R29.6 Repeated falls (principal); G25.81 Restless legs syndrome; Z91.81 History of falling; E11.9 Type 2 diabetes mellitus without complications; I10 Essential (primary) hypertension; E78.5 Hyperlipidemia, unspecified; I48.21 Permanent atrial fibrillation; Z79.01 Long term (current) use of anticoagulants; Z79.899 Other long term (current) drug therapy; Z79.84 Long term (current) use of oral hypoglycemic drugs
CPT/HCPCS: 72100; 72220; 73030; 73521; 82947; 87635; 97161; 99284

== ENCOUNTER 2022-09-13 15:55 | Emergency (ER) | payer OTHER, SELFPAY ==
--- NOTE | ~2022-09-13 | CT_ITS ---
EXAMINATION: CT HEAD WITHOUT CONTRAST CT CERVICAL SPINE WITHOUT CONTRAST CLINICAL INFORMATION: Fall. On blood thinners. COMPARISON: CT head 07/25/2022. TECHNIQUE: Area Forester images were obtained. CT imaging of the head and cervical spine was performed without contrast. Data was reformatted into multiplanar images at the acquisition workstation. This CT examination was performed using dose optimization techniques as appropriate, including one or more of the following: Automated exposure control, iterative reconstruction, and adjustment of technique factors (mA and/or kVp) according to patient size (this includes techniques or standardized protocols for targeted exams where dose is matched to indication/reason for exam). Fleischner Society criteria for the followup of incidental pulmonary nodules was implemented if appropriate. DLP: 1480 mGy-cm. FINDINGS: Head: Patient motion degrades image quality therefore the diagnostic accuracy of this examination is limited. There is no acute intracranial hemorrhage or abnormal extra-axial collection. No intracranial mass effect or midline shift. Lateral and third ventricles are normal. No hydrocephalus. Douglas-white matter differentiation is grossly preserved and there is no evidence of acute territorial infarct. The calvarium and skull base are intact. No mastoid or middle ear effusion. No active paranasal sinus disease. Cervical spine: Patient motion degrades image quality therefore the diagnostic accuracy of this examination is limited. Alignment is grossly maintained. Vertebral heights are preserved. Canal patency is not well assessed. Visualized soft tissues of the neck are unremarkable. Grossly no pathologically enlarged cervical lymph nodes. Lung apices are clear. CT/CT head/brain wo IV con IMPRESSION: Head: Patient motion degrades image quality therefore the diagnostic accuracy of this examination is limited. Grossly no evidence of acute territorial infarct or hemorrhage. Cervical spine: Patient motion degrades image quality therefore the diagnostic accuracy of this examination is limited. Grossly no evidence of acute fracture and no posttraumatic spinal subluxation. Canal patency is not well assessed on this examination due to the extent of motion artifact.
--- NOTE | ~2022-09-13 | CT_ITS ---
EXAMINATION: CT HEAD WITHOUT CONTRAST CT CERVICAL SPINE WITHOUT CONTRAST CLINICAL INFORMATION: Fall. On blood thinners. COMPARISON: CT head 07/25/2022. TECHNIQUE: Electronic Sales And Service Technician images were obtained. CT imaging of the head and cervical spine was performed without contrast. Data was reformatted into multiplanar images at the acquisition workstation. This CT examination was performed using dose optimization techniques as appropriate, including one or more of the following: Automated exposure control, iterative reconstruction, and adjustment of technique factors (mA and/or kVp) according to patient size (this includes techniques or standardized protocols for targeted exams where dose is matched to indication/reason for exam). Fleischner Society criteria for the followup of incidental pulmonary nodules was implemented if appropriate. DLP: 1480 mGy-cm. FINDINGS: Head: Patient motion degrades image quality therefore the diagnostic accuracy of this examination is limited. There is no acute intracranial hemorrhage or abnormal extra-axial collection. No intracranial mass effect or midline shift. Lateral and third ventricles are normal. No hydrocephalus. Douglas-white matter differentiation is grossly preserved and there is no evidence of acute territorial infarct. The calvarium and skull base are intact. No mastoid or middle ear effusion. No active paranasal sinus disease. Cervical spine: Patient motion degrades image quality therefore the diagnostic accuracy of this examination is limited. Alignment is grossly maintained. Vertebral heights are preserved. Canal patency is not well assessed. Visualized soft tissues of the neck are unremarkable. Grossly no pathologically enlarged cervical lymph nodes. Lung apices are clear. CT/CT cervical spine wo IV con IMPRESSION: Head: Patient motion degrades image quality therefore the diagnostic accuracy of this examination is limited. Grossly no evidence of acute territorial infarct or hemorrhage. Cervical spine: Patient motion degrades image quality therefore the diagnostic accuracy of this examination is limited. Grossly no evidence of acute fracture and no posttraumatic spinal subluxation. Canal patency is not well assessed on this examination due to the extent of motion artifact.
--- NOTE | ~2022-09-13 | XR_ITS ---
EXAMINATION: XR RIBS, RIGHT CLINICAL INFORMATION: Pain. Multiple falls. COMPARISON: None available. TECHNIQUE: PA view of the chest. Also, 3 views of the right ribs were obtained. FINDINGS: Lungs are well expanded and clear. No pneumothorax or pleural effusion. Cardiac silhouette is normal in size. The hilar contours are normal. Mild atherosclerotic calcification of the aorta. The ribs have an intact appearance. No evidence of an acute, displaced right rib fracture. Multilevel osteophyte formation of the thoracic spine. There are osteophytes at the inferior aspect of the acromioclavicular and glenohumeral joints of the right shoulder. There is calcium deposition (likely calcium hydroxyapatite deposition) in the region of the distal infraspinatus tendon at the right shoulder. XR/XR ribs RT min 3V w CXR1V IMPRESSION: * No acute pulmonary disease. * No evidence of a right rib fracture. * Incidentally noted is calcium deposition within region of distal infraspinatus tendon of the right shoulder and mild osteoarthritis of acromioclavicular and glenohumeral joints.
[2022-09-13 16:08] VITALS: BP 100/83; PULSE 87; RESP 16; TEMP 36.7; O2SAT 96; BMI 31.0
--- NOTE | 2022-09-13 16:17 | ECG_ITS ---
Test Reason : falls Blood Pressure : / mmHG Vent. Rate : 083 BPM Atrial Rate : 000 BPM P-R Int : 000 ms QRS Dur : 074 ms QT Int : 380 ms P-R-T Axes : 000 061 060 degrees QTc Int : 446 ms Atrial fibrillation with a competing junctional pacemaker Abnormal ECG When compared with ECG of 24-JUL-2022 06:18, No significant change was found Referred By: Leonora Norman Electronically Signed By:Rajiv Nails
--- NOTE | 2022-09-13 16:19 | ED.FALL ---
HPI - Fall General Chief Complaint: Fall Stated Complaint: MULTIPLE FALLS THIS WEEK R SIDED RIB PAIN Time Seen by Provider: 09/13/22 16:07 Source: patient Mode of arrival: EMS Limitations: no limitations History of Present Illness HPI Narrative: Patient comes to the emergency room complaining of right-sided rib pain after a fall. Patient has been seen within a week 3 times for multiple falls. Patient is by herself, states that she has physical therapy/visiting nurses coming and. This is a new service that was started within the last week after she has been falling multiple times. However, patient keeps falling when no one is at home with her. Patient states that she did not hit her head, fell off the couch while trying to get up. Patient is on Xarelto. Patient denies any URI or UTI symptoms Related Data Home Medications Medication Instructions Recorded Confirmed blood sugar diagnostic #10 ea 11/23/19 09/02/22 montelukast 10 mg tablet 10 mg PO BEDTIME 11/23/19 09/02/22 ezetimibe 10 mg tablet 10 mg PO DAILY 06/17/22 09/02/22 rivaroxaban 20 mg tablet (Xarelto) 20 mg PO DAILY@1800 06/17/22 09/02/22 albuterol sulfate 90 mcg/actuation 2 puff inhalation Q4-6H PRN dyspnea 07/24/22 09/02/22 aerosol inhaler (Ventolin HFA) calcium citrate 315 mg-vitamin D3 2 tab PO DAILY 07/24/22 09/02/22 5 mcg (200 unit) tablet (Calcium Citrate + D) clonazepam 0.125 mg disintegrating 0.125 - 0.25 mg PO BEDTIME PRN 07/24/22 09/02/22 tablet Restless Leg(S) fluticasone 500 mcg-salmeterol 50 1 ea PO DAILY 07/24/22 09/02/22 mcg/dose blistr powdr for inhalation furosemide 20 mg tablet 20 mg PO DAILY 07/24/22 09/02/22 levothyroxine 137 mcg tablet 137 mcg PO DAILY@0600 07/24/22 09/02/22 losartan 25 mg tablet 25 mg PO BEDTIME 07/24/22 09/02/22 metformin 500 mg tablet,extended 500 mg PO DAILY@1800 07/24/22 09/02/22 release 24 hr omeprazole 20 mg capsule,delayed 20 mg PO DAILY@0630 07/24/22 09/02/22 release tramadol 50 mg tablet 50 mg PO Q12H PRN severe pain 07/24/22 09/02/22 Previous Rx's Medication Instructions Recorded walker #1 ea 02/29/20 blood-glucose meter (FreeStyle #1 ea 06/19/20 Lite Meter kit) lancets 28 gauge (FreeStyle #100 ea 06/19/20 Lancets) blood sugar diagnostic (FreeStyle #100 ea 11/12/21 Lite Strips) cholecalciferol (vitamin D3) 50 50 mcg PO DAILY 90 days #90 caps 11/27/21 mcg (2,000 unit) capsule bisoprolol fumarate 5 mg tablet 5 mg PO DAILY #30 tabs 07/29/22 Allergies Allergy/AdvReac Type Severity Reaction Status Date / Time aspirin [ASPIRIN] Allergy Severe ANAPHYLAXIS Verified 09/02/22 15:29 Seasonal Allergies Allergy Intermediate asthma, Verified 09/10/22 09:38 itch, rash Review of Systems Review of Systems: Constitutional : No Weight loss, No Fever, No Chills, No Night Sweats, complaining of overall worsening weakness and multiple falls ENT/Mouth : No Hearing loss, No Ear Pain, No Nasal Congestion, No Sinus Pain, No Hoarseness, No sore throat, No Rhinorrhea, No Swallowing Difficulty Eyes: No Eye Pain, No Swelling, No Redness, No Foreign Body, No Discharge, No Vision Changes Cardiovascular : No Chest Pain, No SOB, No Dyspnea on Exertion, No Orthopnea, No Edema, No Palpitations Respiratory : No Cough, No Sputum, No Wheezing, No Smoke Exposure, No Dyspnea Gastrointestinal : No Nausea, No Vomiting, No Diarrhea, No Constipation, No abdominal Pain, No Hematochezia, No Melena Genitourinary : no irregular bleeding, No Dysuria, No Urinary Frequency, No Hematuria, No Urinary Incontinence, No Urgency, No Flank Pain, No Urinary Flow Changes, No Hesitancy Musculoskeletal : Complaining of right-sided rib pain No joint pain, No Myalgias, No Joint Swelling Skin : No Skin Lesions, No rash Neuro : No Weakness, No Numbness, No Paresthesias, No Loss of Consciousness, No Dizziness, No Headache Psych : No Anxiety/Panic, No Depression, No SI/HI/AH/VH, No Social Issues, Heme/Lymph: No Bruising, No Bleeding,No Lymphadenopathy Endocrine : No Polyuria, No Polydipsia, No Temperature Intolerance [facility] Past Medical History Medical History Addiction, opium Arthritis Autoimmune thyroiditis CHF (congestive heart failure) Depression with anxiety Diabetes type 2, uncontrolled Dyslipidemia Essential hypertension Hypothyroidism (acquired) Obesity (BMI 30-39.9) Osteopenia Overweight (BMI 25.0-29.9) Restless leg syndrome Vitamin D deficiency Surgical History History of radical hysterectomy Hx of arthroscopy of knee Hx of cataract surgery Family History Family History Father Diabetes Mother No problems noted. Son Substance use disorder Social History Social History Household Members: None [facility] Do you presently have visiting nurse or other home services: Yes Unable to assess alcohol history related to: Unable to respond Alcohol intake: never Patient Tobacco Use Status: Former Tobacco user e-Cigarette/Vaping Use: Never Used Second Hand Smoke Exposure: No Advance Directives: Yes Advance Directives on File: Yes Advance Directives Date on File: 07/30/22 service: No Current occupational status: retired Physical Exam Vital Signs: Vital Signs: Last Vital Signs Temp 98.1 F 09/13/22 20:31 Pulse 94 09/13/22 20:31 Resp 16 09/13/22 20:31 BP 142/41 H 09/13/22 20:31 Pulse Ox 96 09/13/22 20:31 O2 Del Method Room Air 09/13/22 20:31 BMI result Body Mass Index 31.0 Const: Other: Appearance: Alert. Oriented X3. No acute distress. Eyes: Pupils equal, round and reactive to light. ENT: Pharynx normal. Neck: Normal inspection. Neck supple. No lymph nodes noted. No crepitus CVS: Normal heart rate and rhythm. Pulses normal. Normal S1 and S2 Respiratory: No respiratory distress. Breath sounds normal. No Wheezing. No rales Abdomen: Soft and nontender. No rigidity. No distention. Skin: Skin warm and dry. Normal skin color. Normal skin turgor. Extremities: No lower extremity edema. No Lacerations. No Rash Neuro: Oriented X 3. No motor deficit. No sensory deficit. Moving all extremities. No slurred speech. CN 2 through 12 grossly intact Psych: calm, cooperative, teary, anxious Course Course Course Narrative: -patient complaining of right-sided rib pain. Patient concerned that she has at home and she keeps falling when she is by herself. Patient is on Xarelto. Patient has fallen at least 3 times this week. Patient states that she thinks she may have to go to placement/short-term rehab requesting PT/case management. Medical Decision Making Medical Decision Making [facility] Narrative: -my interpretation of EKG: Atrial fibrillation, rate control, heart rate 83, no ST segment depression or elevation, no T-wave inversion, QTC 74 -my interpretation of labs: UTI, patient given p.o. cefuroxime in the emergency room, will be taking it b.i.d. for 7 days. White blood cell count normal, chemistry within normal limits, troponin normal -PT and Case Management consult pending -physician observation started 20:00 Differential Diagnosis Differential Diagnoses: The differential diagnosis associated with the presentation includes (UTI, generalized weakness, deconditioning) Admission/Observation Consideration of admission/observation: Escalation of care including admission/observation considered (Patient will be under observation on in the emergency room until she is seen by case management physical therapy to determine disposition) Lab Data [facility] Lab Attestation statement: I reviewed the patient's lab results. 09/13/22 17:45 09/13/22 17:45 Labs: Lab Results 09/13/22 09/13/22 09/13/22 Range/Units 17:45 17:45 17:45 WBC 6.9 (4.8-10.8) X10*3/uL RBC 4.45 (4.20-5.50) X10*6/uL Hgb 12.8 (12.0-16.0) g/dl Hct 38.5 (37.0-47.0) % MCV 86.5 (80.0-98.0) fL MCH 28.8 (27.0-33.0) pg MCHC 33.2 (31.0-35.0) g/dl RDW 13.8 (11.0-16.0) % Plt Count 265 (160-400) X10*3/uL MPV 10.3 (9.4-12.3) fL Immature Gran % (Auto) 0.3 (0.0-0.4) % Neut % (Auto) 60.4 (45-73) % Lymph % (Auto) 25.4 (20-40) % [place] % (Auto) 10.7 (2-11) % Eos % (Auto) 2.5 (0-4) % Baso % (Auto) 0.7 (0-2) % Lymph # (Auto) 1.8 (1.2-4.9) X10*3/uL [place] # (Auto) 0.7 (0.1-1.2) X10*3/uL Eos # (Auto) 0.2 (0.0-0.4) X10*3/uL Baso # (Auto) 0.1 (0.0-0.2) X10*3/uL Abs Immat Gran (auto) 0.02 (0.00-0.03) X10*3/uL Absolute Neuts (auto) 4.2 (2.0-8.3) x10*3/uL Absolute Nucleated RBC 0.000 (0.0-0.012) X10*3/uL Nucleated RBC % (auto) 0.0 (0.0-0.2) /100WBC Sodium 140 (135-145) mmol/L Potassium 3.7 (3.3-5.1) mmol/L Chloride 104 (96-108) mmol/L Carbon Dioxide 28 (22-29) mmol/L Anion Gap 12 (12-20) BUN 15 (9-16) mg/dL Creatinine 0.75 (0.5-1.4) mg/dL Estim Creat Clear Calc 59.8 Estimated GFR > 60 POC Glucose (60-115) mg/dL Random Glucose 90 (60-115) mg/dL Calcium 9.4 (8.4-10.2) mg/dL Troponin I High Sens < 2.7 (<3.5-17.0) ng/L Urine Color Urine Appearance Urine pH (5.0-9.0) Ur Specific [place] (1.005-1.025) Urine Protein (Neg-Trace) mg/dL Urine Glucose (UA) (Negative) mg/dL Urine Ketones (Negative) mg/dL Urine Blood (Negative) Urine Nitrite (Negative) Ur Leukocyte Esterase (Negative) Urine RBC (0-2) /HPF Urine WBC (0-5) /HPF Ur Squamous Epith Cells (0-2) /HPF Urine Bacteria (None Seen) Hyaline Casts (0-2) /LPF Urine Opiates Screen (Not Detect) Urine Fentanyl Screen (Not Detect) Ur Barbiturates Screen (Not Detect) Ur Phencyclidine Scrn (Not Detect) Ur Amphetamines Screen (Not Detect) U Benzodiazepines Scrn (Not Detect) Urine Cocaine Screen (Not Detect) U Marijuana (THC) Screen (Not Detect) Ethyl Alcohol mg/dL 09/13/22 09/13/22 09/13/22 Range/Units 17:45 17:45 17:45 WBC (4.8-10.8) X10*3/uL RBC (4.20-5.50) X10*6/uL Hgb (12.0-16.0) g/dl Hct (37.0-47.0) % MCV (80.0-98.0) fL MCH (27.0-33.0) pg MCHC (31.0-35.0) g/dl RDW (11.0-16.0) % Plt Count (160-400) X10*3/uL MPV (9.4-12.3) fL Immature Gran % (Auto) (0.0-0.4) % Neut % (Auto) (45-73) % Lymph % (Auto) (20-40) % [place] % (Auto) (2-11) % Eos % (Auto) (0-4) % Baso % (Auto) (0-2) % Lymph # (Auto) (1.2-4.9) X10*3/uL [place] # (Auto) (0.1-1.2) X10*3/uL Eos # (Auto) (0.0-0.4) X10*3/uL Baso # (Auto) (0.0-0.2) X10*3/uL Abs Immat Gran (auto) (0.00-0.03) X10*3/uL Absolute Neuts (auto) (2.0-8.3) x10*3/uL Absolute Nucleated RBC (0.0-0.012) X10*3/uL Nucleated RBC % (auto) (0.0-0.2) /100WBC Sodium (135-145) mmol/L Potassium (3.3-5.1) mmol/L Chloride (96-108) mmol/L Carbon Dioxide (22-29) mmol/L Anion Gap (12-20) BUN (9-16) mg/dL Creatinine (0.5-1.4) mg/dL Estim Creat Clear Calc Estimated GFR POC Glucose (60-115) mg/dL Random Glucose (60-115) mg/dL Calcium (8.4-10.2) mg/dL Troponin I High Sens (<3.5-17.0) ng/L Urine Color Yellow Urine Appearance Cloudy Urine pH 7.5 (5.0-9.0) Ur Specific [place] <= 1.005 (1.005-1.025) Urine Protein Negative (Neg-Trace) mg/dL Urine Glucose (UA) Negative (Negative) mg/dL Urine Ketones Negative (Negative) mg/dL Urine Blood Negative (Negative) Urine Nitrite Positive H (Negative) Ur Leukocyte Esterase Moderate (2+) H (Negative) Urine RBC 0-2 (0-2) /HPF Urine WBC 21-50 H (0-5) /HPF Ur Squamous Epith Cells 11-20 (0-2) /HPF Urine Bacteria 4+ (None Seen) Hyaline Casts 0-2 (0-2) /LPF Urine Opiates Screen Not Detected (Not Detect) Urine Fentanyl Screen Not Detected (Not Detect) Ur Barbiturates Screen Not Detected (Not Detect) Ur Phencyclidine Scrn Not Detected (Not Detect) Ur Amphetamines Screen Not Detected (Not Detect) U Benzodiazepines Scrn Not Detected (Not Detect) Urine Cocaine Screen Not Detected (Not Detect) U Marijuana (THC) Screen Not Detected (Not Detect) Ethyl Alcohol < 10 mg/dL 09/13/22 09/13/22 Range/Units 19:09 19:48 WBC (4.8-10.8) X10*3/uL RBC (4.20-5.50) X10*6/uL Hgb (12.0-16.0) g/dl Hct (37.0-47.0) % MCV (80.0-98.0) fL MCH (27.0-33.0) pg MCHC (31.0-35.0) g/dl RDW (11.0-16.0) % Plt Count (160-400) X10*3/uL MPV (9.4-12.3) fL Immature Gran % (Auto) (0.0-0.4) % Neut % (Auto) (45-73) % Lymph % (Auto) (20-40) % [place] % (Auto) (2-11) % Eos % (Auto) (0-4) % Baso % (Auto) (0-2) % Lymph # (Auto) (1.2-4.9) X10*3/uL [place] # (Auto) (0.1-1.2) X10*3/uL Eos # (Auto) (0.0-0.4) X10*3/uL Baso # (Auto) (0.0-0.2) X10*3/uL Abs Immat Gran (auto) (0.00-0.03) X10*3/uL Absolute Neuts (auto) (2.0-8.3) x10*3/uL Absolute Nucleated RBC (0.0-0.012) X10*3/uL Nucleated RBC % (auto) (0.0-0.2) /100WBC Sodium (135-145) mmol/L Potassium (3.3-5.1) mmol/L Chloride (96-108) mmol/L Carbon Dioxide (22-29) mmol/L Anion Gap (12-20) BUN (9-16) mg/dL Creatinine (0.5-1.4) mg/dL Estim Creat Clear Calc Estimated GFR POC Glucose 96 109 (60-115) mg/dL Random Glucose (60-115) mg/dL Calcium (8.4-10.2) mg/dL Troponin I High Sens (<3.5-17.0) ng/L Urine Color Urine Appearance Urine pH (5.0-9.0) Ur Specific [place] (1.005-1.025) Urine Protein (Neg-Trace) mg/dL Urine Glucose (UA) (Negative) mg/dL Urine Ketones (Negative) mg/dL Urine Blood (Negative) Urine Nitrite (Negative) Ur Leukocyte Esterase (Negative) Urine RBC (0-2) /HPF Urine WBC (0-5) /HPF Ur Squamous Epith Cells (0-2) /HPF Urine Bacteria (None Seen) Hyaline Casts (0-2) /LPF Urine Opiates Screen (Not Detect) Urine Fentanyl Screen (Not Detect) Ur Barbiturates Screen (Not Detect) Ur Phencyclidine Scrn (Not Detect) Ur Amphetamines Screen (Not Detect) U Benzodiazepines Scrn (Not Detect) Urine Cocaine Screen (Not Detect) U Marijuana (THC) Screen (Not Detect) Ethyl Alcohol mg/dL Independent Interpretation I performed an independent interpretation of an: Plain X-Ray (X-ray of the ribs: No fractures) and CT Scan (My interpretation of his CT scan, no intracranial bleed) Radiology Impression Discussion of test interpretation with radiology: I have reviewed the radiologist's reading. Radiologist Impression: FINDINGS: Lungs are well expanded and clear. No pneumothorax or pleural effusion. Cardiac silhouette is normal in size. The hilar contours are normal. Mild atherosclerotic calcification of the aorta. The ribs have an intact appearance. No evidence of an acute, displaced right rib fracture. Multilevel osteophyte formation of the thoracic spine. There are osteophytes at the inferior aspect of the acromioclavicular and glenohumeral joints of the right shoulder. There is calcium deposition (likely calcium hydroxyapatite deposition) in the region of the distal infraspinatus tendon at the right shoulder. XR/XR ribs RT min 3V w CXR1V IMPRESSION: *? No acute pulmonary disease. *? No evidence of a right rib fracture. *? Incidentally noted is calcium deposition within region of distal infraspinatus tendon of the right shoulder and mild osteoarthritis of acromioclavicular and glenohumeral joints. FINDINGS: Head: Patient motion degrades image quality therefore the diagnostic accuracy of this examination is limited. There is no acute intracranial hemorrhage or abnormal extra-axial collection. No intracranial mass effect or midline shift. Lateral and third ventricles are normal. No hydrocephalus. Douglas-white matter differentiation is grossly preserved and there is no evidence of acute territorial infarct. The calvarium and skull base are intact. No mastoid or middle ear effusion. No active paranasal sinus disease. Cervical spine: Patient motion degrades image quality therefore the diagnostic accuracy of this examination is limited. Alignment is grossly maintained. Vertebral heights are preserved. Canal patency is not well assessed. Visualized soft tissues of the neck are unremarkable. Grossly no pathologically enlarged cervical lymph nodes. Lung apices are clear. CT/CT head/brain wo IV con IMPRESSION: Head: Patient motion degrades image quality therefore the diagnostic accuracy of this examination is limited. Grossly no evidence of acute territorial infarct or hemorrhage. ? Cervical spine: Patient motion degrades image quality therefore the diagnostic accuracy of this examination is limited. Grossly no evidence of acute fracture and no posttraumatic spinal subluxation. Canal patency is not well assessed on this examination due to the extent of motion artifact. Critical Care Time Critical Care Time Critical Care Time: Yes Total Critical Care Time: 45 Attestation: I have personally provided critical care time. Time includes review of lab data, radiology results, discussion with consultants, and monitoring for potential decompensation. Intervention performed as documented. Discharge Plan Discharge Clinical Impression: Multiple falls, Rib contusion, Physical deconditioning Patient Disposition: Still a Patient Prescriptions: No Action (DME) blood-glucose meter [FreeStyle Lite Meter] Kit See Rx Instructions miscellaneous .MEDSUPPLY Qty: 1 0RF Rx Instructions: 3 times a day (DME) lancets [FreeStyle Lancets] 28 gauge misc See Rx Instructions .MEDSUPPLY Qty: 100 8RF Rx Instructions: Twice a day (DME) FreeStyle Lite Strips Strip See Rx Instructions .MEDSUPPLY Qty: 100 6RF Rx Instructions: 2 times a day levothyroxine 137 mcg tablet 137 mcg PO DAILY@0600 furosemide 20 mg tablet 20 mg PO DAILY clonazepam 0.125 mg tablet,disintegrating 0.125 - 0.25 mg PO BEDTIME PRN (Reason: Restless Leg(S)) tramadol 50 mg tablet 50 mg PO Q12H PRN (Reason: severe pain) omeprazole 20 mg capsule,delayed release(DR/EC) 20 mg PO DAILY@0630 albuterol sulfate [Ventolin HFA] 90 mcg/actuation HFA aerosol inhaler 2 puff INHALATION Q4-6H PRN (Reason: dyspnea) fluticasone propion-salmeterol 500-50 mcg/dose blister with device 1 ea PO DAILY losartan 25 mg tablet 25 mg PO BEDTIME metformin 500 mg tablet extended release 24 hr 500 mg PO DAILY@1800 calcium citrate-vitamin D3 [Calcium Citrate + D] 315 mg-5 mcg (200 unit) tablet 2 tab PO DAILY bisoprolol fumarate 5 mg Tablet 5 mg PO DAILY Qty: 30 0RF (DME) walker Misc See Rx Instructions .MEDSUPPLY Qty: 1 0RF Rx Instructions: Walker without wheels montelukast 10 mg tablet 10 mg PO BEDTIME (DME) blood sugar diagnostic Strip See Rx Instructions Not Applicable BID Qty: 10 Rx Instructions: As directed cholecalciferol (vitamin D3) 50 mcg (2,000 unit) capsule 50 mcg PO DAILY 90 Days Qty: 90 2RF ezetimibe 10 mg tablet 10 mg PO DAILY Xarelto 20 mg tablet 20 mg PO DAILY@1800
--- NOTE | 2022-09-13 16:42 | PC.NURSE ---
pt a+o x3, arrived to ed via ambulance. pt reports qd falls x3 wks. 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 she usually gets herself up from floor. denies head strike/loc/denies pain at this time.
--- OUTSIDE RECORDS SUMMARY | 2022-09-13 16:43 | XMS_ITS | Patient Health Record ---
Author Name Unknown [facility] Address [address] [place] [address] Care Team Providers Care Dj Instructor Name Role Phone Carlitos Rodriguez Primary Care Provider Unavaila ble Black, Robina Unavailable [phone] Kathleen Stoddard MD Unavailable Unavailable ALLERGIES Allergen [...] primary osteoarthritis of the ankle and/or foot (318175058) Problem Primary osteoarthritis, left ankle and foot (M19.072) Active confirmed Localized, primary osteoarthritis of the ankle and/or foot (515408991) Problem Hallux valgus (acquired), right foot (M20.11) Active confirmed Acquired hallu x valgus (89065626) Problem Other hammer toe(s) (acquired), right foot (M20.41) Active confirmed Acquired hamme r toe of right foot (8535234717912870 ) Problem Other hammer toe(s) (acquired), left foot (M20.42) Active confirmed Acquired hamme r toe of left foot (6528987247651014 ) Problem Type 2 diabetes mellitus with diabetic polyneuropathy (E11.42) Active confirmed Polyneuropathy due to type 2 diabetes mellitus (257368105) Problem Type 1 diabetes mellitus with diabetic polyneuropathy (E10.42) Active confirmed Polyneuropathy due to diabetes mellitus type I (407448922) Encounters Encounter Location Date Provider Diagnosis [facility] [address] [address] 09/29/2021 Robina Olmedo [facility] [address] [address] 10/01/2021 Robina Olmedo [facility] [address] 05/05/2022 Robinachantal Olmedo [facility] [address] 05/06/2022 [facility] [address] [address] 06/21/2022 Robina Olmedo [facility] [address] 06/21/2022 Robina Olmedo PLAN OF TREATMENT Pending Test Test Name Order Date Tc99 3 phase Bone Scan 07/28/2020 [id number] SKIN LESIONS, 2 TO 4 03/16/19 [id number] NAIL(S) 03/16/2021 Next Appt Details Provider Name:Robina Olmedo , 11/11/2022 09:00:00 AM, [address] [place], [address], Insurance Providers Payer Name Payer Address Payer Phone Subscriber Number Group Number Insured Name Patient Relationship to Insured Coverage Start Date Coverage End Date [facility] [employer] [address] [place] [address] [phone] [id number] Teresa Andrews Self - patient is the insured MEDICAL (GENERAL) HISTORY Medical History History ICD Code Anxiety asthma Back,Hip,and Knee pain Broken bones CAD (Cholesterol) type II diabetes Fibromyalgia Gall bladder problems High blood pressure chronic sinusitis thyroid Surgical History Surgery Date(Month/Year) hysterectomy wisdom teeth extraction colonoscopy endoscopy
--- NOTE | 2022-09-13 17:10 | MHC.EDTECH ---
Unable to obtain EKG or blood work due to patient excessive movements. Nurses notified Edmundo. Leann Chadwick
[2022-09-13 17:51] LABS: MANUAL DIFF FLAG NO
[2022-09-13 17:57] LABS: Appearance Urine Cloudy; Basophils Absolute Auto 0.1 X10*3/uL (0.0-0.2); Basophils Percent Auto 0.7 % (0-2); Color Urine Yellow; Eosinophils Absolute Auto 0.2 X10*3/uL (0.0-0.4); Eosinophils Percent Auto 2.5 % (0-4); Glucose Urine UA Negative (Negative); Hematocrit 38.5 % (37.0-47.0); Hemoglobin 12.8 g/dl (12.0-16.0); Imm Gran Abs Auto 0.02 X10*3/uL (0.00-0.03); Imm Gran Pct Auto 0.3 % (0.0-0.4); Leukocyte Esterase Urine Moderate (2+) (Negative); Lymphocytes Absolute Auto 1.8 X10*3/uL (1.2-4.9); Lymphocytes Percent Auto 25.4 % (20-40); Mean Corpuscular HGB Conc 33.2 g/dl (31.0-35.0); Mean Corpuscular Hemoglobin 28.8 pg (27.0-33.0); Mean Corpuscular Volume 86.5 fL (80.0-98.0); Mean Platelet Volume 10.3 fL (9.4-12.3); Monocytes Absolute Auto 0.7 X10*3/uL (0.1-1.2); Monocytes Percent Auto 10.7 % (2-11); Neutrophils Absolute Auto 4.2 x10*3/uL (2.0-8.3); Neutrophils Percent Auto 60.4 % (45-73); Nitrite Urine Positive (Negative); PH 7.5 (5.0-9.0); Platelet Count 265 X10*3/uL (160-400); Red Blood Count 4.45 X10*6/uL (4.20-5.50); Red Cell Distribution Width 13.8 % (11.0-16.0); Specific Gravity - Urine <= 1.005 (1.005-1.025); UMIC TRIGGER UACC YES; Urine Blood Negative (Negative); Urine Ketones Negative (Negative); Urine Protein Negative (Neg-Trace); White Blood Count 6.9 X10*3/uL (4.8-10.8)
[2022-09-13 18:08] LABS: Bacteria Urine 4+ (None Seen); Hyaline Casts Urine 0-2 /LPF (0-2); RBC Urine 0-2 /HPF (0-2); UACC Culture Trigger YES; WBC Urine 21-50 /HPF (0-5)
[2022-09-13 18:20] LABS: Anion Gap 12 (12-20); Blood Urea Nitrogen 15 mg/dL (9-16); Calcium 9.4 mg/dL (8.4-10.2); Carbon Dioxide 28 mmol/L (22-29); Chloride 104 mmol/L (96-108); Creatinine Clr Calc Pharmacy 59.8; Estimated Glomerular Filt Rate > 60; Glucose Random 90 mg/dL (60-115); Potassium 3.7 mmol/L (3.3-5.1); Sodium 140 mmol/L (135-145)
[2022-09-13 18:22] LABS: Ethanol < 10 mg/dL
[2022-09-13 18:23] LABS: Amphetamine Screen Urine Not Detected (Not Detect); Barbiturates, Urine Not Detected (Not Detect); Benzodiazepines Screen Urine Not Detected (Not Detect); Cannabinoid Screen Urine Not Detected (Not Detect); Cocaine Screen Urine Not Detected (Not Detect); Fentanyl, urine Not Detected (Not Detect); Opiate Screen Urine Not Detected (Not Detect); Phencyclidine Screen Urine Not Detected (Not Detect)
--- NOTE | 2022-09-13 18:35 | MHC.EDTECH ---
this tech took over this patients section at 181. patient coached with breathing in order to obtain EKG, EKG obtained at 183, provider notified and EKG signed
[2022-09-13 18:37] LABS: Troponin-I High Sensitivity < 2.7 ng/L (<3.5-17.0)
[2022-09-13 19:00] VITALS: BP 102/66; PULSE 85; RESP 18; TEMP 36.5; O2SAT 98
[2022-09-13 19:13] LABS: Glucose, Whole Blood 96 mg/dL (60-115)
[2022-09-13 19:51] LABS: Glucose, Whole Blood 109 mg/dL (60-115)
[2022-09-13 20:31] VITALS: BP 142/41; PULSE 94; RESP 16; TEMP 36.7; O2SAT 96
[2022-09-13 22:06] VITALS: BP 131/85; PULSE 94; RESP 14; TEMP 36.6; O2SAT 96
[2022-09-14 00:31] VITALS: BP 106/84; PULSE 86; TEMP 36.7; O2SAT 96
--- NOTE | 2022-09-14 02:25 | MHC.EDTECH ---
Patient was found fully dressed in her clothes, stating that she wants to go home. T/W redirected patient back to bed and was changed over into hospital gown and red socks. her belongins were put back in the bag. Pt is currently laying in bed watching TV.
[2022-09-14 02:59] VITALS: BP 150/79; PULSE 113; TEMP 36.7; O2SAT 97
[2022-09-14] MEDS: traMADoL HCL 50 MG TABLET PO (03:00)
[2022-09-14 07:18] LABS: Glucose, Whole Blood 140 mg/dL (60-115)
[2022-09-14 07:30] VITALS: BP 150/79; PULSE 113; O2SAT 97
--- NOTE | 2022-09-14 09:00 | PC.NURSE ---
respirations even and unlabored. assisted pt to bathroom. pt denies pain.
--- NOTE | 2022-09-14 12:51 | MHC.CM.ED ---
Addendum entered by Ana Laughlin 09/14/22 14:00: [facility] does not have a bed to offer. [facility] and [facility] are able to offer a bed. Met with patient to discuss discharge facility options. Patient is declining STR at this time and will go home with resumption of PT/OT with [facility] and [facility] [employer]. Janny AYERS aware. Original Note: Received case management consult overnight. Patient came to the ER due to falls. Work up essentially negative. Physical therapy eval completed. Short term rehab is recommended. Met with patient and [facility]. Patient lives alone and is active with [facility] for PT and OT. PCP verified as Karishma Urbano at [facility]. HCP verified to be on file. Patient received 3 Pfizer vaccines. Patient has been to [facility] in the past. Patient's STR choices are 1)[facility] 2)[facility]. Referrals made via [facility]. Continue to monitor for d/c needs.
[2022-09-14 13:41] VITALS: BP 142/61; PULSE 81; RESP 20; O2SAT 96
[2022-09-14 13:45] LABS: COVID-19 Test Negative (Negative); IDNOW Serial# 08D9AD1C
--- NOTE | 2022-09-14 14:24 | PC.NURSE ---
pt unwilling to wait for discharge paperwork, provider aware. pt discharged with [employer] [employer].
== END 2022-09-14 14:33 | disposition home or self-care (01) ==
PROVIDERS: Registered Nurse Emergency; Emergency Provider Emergency Medicine; PCP Registered Nurse
DX: S20.211A Contusion of right front wall of thorax, initial encounter (principal); W06.XXXA Fall from bed, initial encounter; R53.81 Other malaise; R00.0 Tachycardia, unspecified; R29.6 Repeated falls; Z91.81 History of falling; Z20.822 Contact with and (suspected) exposure to COVID-19; E11.9 Type 2 diabetes mellitus without complications; I10 Essential (primary) hypertension; E78.5 Hyperlipidemia, unspecified; Z79.02 Long term (current) use of antithrombotics/antiplatelets; Y93.89 Activity, other specified; Y92.032 Bedroom in apartment as the place of occurrence of the external cause; Y99.9 Unspecified external cause status; Z79.84 Long term (current) use of oral hypoglycemic drugs; Z79.899 Other long term (current) drug therapy
CPT/HCPCS: 36415; 70450; 71101; 72125; 80048; 80307; 81001; 82947; 84484; 85025; 87086; 87635; 93005; 97161; 99285

== ENCOUNTER → 2022-09-13 16:17 | Outpatient (BNV) | payer OTHER, SELFPAY | PROVIDERS: Emergency Provider Emergency Medicine; Visit Provider Internal Medicine Cardiovascular Disease | DX: I48.91 Unspecified atrial fibrillation (principal) | CPT/HCPCS: 93010 ==

== ENCOUNTER 2022-09-19 13:28 | Emergency (ER) | payer OTHER, SELFPAY ==
--- NOTE | ~2022-09-19 | XR_ITS ---
EXAMINATION: XR HIP, RIGHT CLINICAL INFORMATION: Fall and tenderness. COMPARISON: None available. TECHNIQUE: AP pelvis and 2 views of the right hip. FINDINGS: Pelvis: There is normal symmetry of bilateral hip joints and SI joints. No bony abnormality seen. There are pedicular screws at L4, L5 and S1 vertebra with interconnecting rods for L4-L5 and L5-S1 disc fusion. The soft tissues are normal. Right hip: There is a loss of of right hip joint space. No periarticular spurring. No loose bodies. No acute fracture or dislocation. The soft tissues are normal. XR/XR hip RT w PEL1V IMPRESSION: Unremarkable AP pelvis and right hip exam. Posterior hardware for L4-L5 and L5-S1 disc fusion.
--- NOTE | 2022-09-19 13:46 | ED_ITS ---
HPI - General Adult General Chief complaint: Fall Stated complaint: FALL WITH PAIN IN R HIP/LEG/BACK PER EMS Time Seen by Provider: 09/19/22 13:46 Source: patient, EMS, RN notes reviewed and old records reviewed Mode of arrival: EMS Limitations: no limitations History of Present Illness HPI narrative: Patient is a 77-year-old female with history of atrial fibrillation, HTN, T2 dm presenting to the emergency department for the 4th time in 2 weeks after a fall. Patient states she was standing at her sink earlier today when her knees gave out causing her to fall to the floor. She states that she fell onto her right hip. Denies hitting her head, denies loss of consciousness. Denies headache, denies any changes in vision. At last ED visit on 09/13/2022 patient was referred to short-term rehab and was accepted at several facilities and requested discharge from the emergency department stating that she preferred to be at home. 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 MD complaint: right hip pain Onset (ago): hour(s) Location: pelvis Radiation: non-radiation Severity: moderate Quality: aching Pain Consistency: constant Relieving factors: rest Exacerbating factors: movement Associated symptoms: denies other symptoms Treatments prior to arrival: none Related Data Home Medications Medication Instructions Recorded Confirmed blood sugar diagnostic #10 ea 11/23/19 09/02/22 montelukast 10 mg tablet 10 mg PO BEDTIME 11/23/19 09/02/22 ezetimibe 10 mg tablet 10 mg PO DAILY 06/17/22 09/02/22 rivaroxaban 20 mg tablet (Xarelto) 20 mg PO DAILY@1800 06/17/22 09/02/22 albuterol sulfate 90 mcg/actuation 2 puff inhalation Q4-6H PRN dyspnea 07/24/22 09/02/22 aerosol inhaler (Ventolin HFA) calcium citrate 315 mg-vitamin D3 2 tab PO DAILY 07/24/22 09/02/22 5 mcg (200 unit) tablet (Calcium Citrate + D) clonazepam 0.125 mg disintegrating 0.125 - 0.25 mg PO BEDTIME PRN 07/24/22 09/02/22 tablet Restless Leg(S) fluticasone 500 mcg-salmeterol 50 1 ea PO DAILY 07/24/22 09/02/22 mcg/dose blistr powdr for inhalation furosemide 20 mg tablet 20 mg PO DAILY 07/24/22 09/02/22 levothyroxine 137 mcg tablet 137 mcg PO DAILY@0600 07/24/22 09/02/22 losartan 25 mg tablet 25 mg PO BEDTIME 07/24/22 09/02/22 metformin 500 mg tablet,extended 500 mg PO DAILY@1800 07/24/22 09/02/22 release 24 hr omeprazole 20 mg capsule,delayed 20 mg PO DAILY@0630 07/24/22 09/02/22 release tramadol 50 mg tablet 50 mg PO Q12H PRN severe pain 07/24/22 09/02/22 diltiazem HCl 120 mg 120 mg PO DAILY 09/14/22 capsule,extended release 24 hr gabapentin 300 mg capsule 300 mg PO BID 09/14/22 lidocaine 5 % topical patch 1 patch topical DAILY 09/14/22 mirabegron 25 mg tablet,extended 25 mg PO BEDTIME 09/14/22 release 24 hr (Myrbetriq) rosuvastatin 5 mg tablet 5 mg PO BEDTIME 09/14/22 sitagliptin phosphate 100 mg 100 mg PO QAM 09/14/22 tablet (Januvia) Previous Rx's Medication Instructions Recorded walker #1 ea 02/29/20 blood-glucose meter (FreeStyle #1 ea 06/19/20 Lite Meter kit) lancets 28 gauge (FreeStyle #100 ea 06/19/20 Lancets) blood sugar diagnostic (FreeStyle #100 ea 11/12/21 Lite Strips) cholecalciferol (vitamin D3) 50 50 mcg PO DAILY 90 days #90 caps 11/27/21 mcg (2,000 unit) capsule bisoprolol fumarate 5 mg tablet 5 mg PO DAILY #30 tabs 07/29/22 Allergies Allergy/AdvReac Type Severity Reaction Status Date / Time aspirin [ASPIRIN] Allergy Severe ANAPHYLAXIS Verified 09/02/22 15:29 Seasonal Allergies Allergy Intermediate asthma, Verified 09/10/22 09:38 itch, rash Review of Systems Review of Systems: As per HPI. Yes all other systems are reviewed and are negative Constitutional: Constitutional: Reports as per HPI [facility] Past Medical History Medical History Addiction, opium Arthritis Autoimmune thyroiditis CHF (congestive heart failure) Depression with anxiety Diabetes type 2, uncontrolled Dyslipidemia Essential hypertension Hypothyroidism (acquired) Obesity (BMI 30-39.9) Osteopenia Overweight (BMI 25.0-29.9) Restless leg syndrome Vitamin D deficiency Surgical History History of radical hysterectomy Hx of arthroscopy of knee Hx of cataract surgery Family History Family History Father Diabetes Mother No problems noted. Son Substance use disorder Social History Social History Household Members: None [facility] Do you presently have visiting nurse or other home services: Yes Unable to assess alcohol history related to: Unable to respond Alcohol intake: never Patient Tobacco Use Status: Former Tobacco user e-Cigarette/Vaping Use: Never Used Second Hand Smoke Exposure: No Advance Directives: Yes Advance Directives on File: Yes Advance Directives Date on File: 07/30/22 service: No Current occupational status: retired Physical Exam ED Vital Signs: Vital Signs - 24 hr 09/19/22 14:02 Temperature 98.1 F Pulse Rate 94 Respiratory Rate 18 Blood Pressure 133/61 Pulse Oximetry 100 Oxygen Delivery Method Room Air BMI result Body Mass Index 29.9 Vital signs have been reviewed and appear to be correct. Blood pressure normal. Heart rate normal. Respiratory rate normal. Temperature normal. Oxygen saturation normal. Const General: cooperative, healthy appearing and no acute distress Orientation/consciousness: oriented to person, oriented to place, oriented to time and patient oriented x3 Limitations: no limitations HENMT Head: Yes normocephalic and Yes atraumatic Ears: external ears normal General nose exam: Normal external nose present Face and sinus: Yes face symmetric Mouth: oropharynx normal and moist mucous membranes Throat: Yes uvula midline Eyes Pupils: Equal, round and reactive pupils present Neck Neck: Yes normal visual inspection and Yes supple Resp Effort & Inspection: normal respiratory effort and able to speak in complete sentences Auscultation: clear to auscultation bilaterally Cardio Rate: regular rate Rhythm: regular rhythm Heart sounds: S1 normal heart sound present and S2 normal heart sound present GI Palpation (GI): Soft to palpation and nontender Auscultation: normoactive bowel sounds General: Yes no CVA tenderness Back/Spine/Pelvis Back: no CVA tenderness Cervical Spine: cervical ROM normal, No Cervical spine tenderness and No step off deformity Thoracic/Lumbar Spine: thoracic and lumbar spine normal to inspection, thoraco- lumbar ROM normal, No thoracic spinal tenderness and No lumbar spinal tenderness Pelvis: no pain with anterior-posterior compression and no pain with lateral compression Skin Other: diffuse scattered ecchymosis in various stages of healing, left anterior shoulder, multiple to right lateral hip General skin exam: elasticity normal and turgor normal Neuro General: oriented to person, oriented to place, oriented to time, patient oriented x3, moves all extremities, no focal motor deficits and CN's II-XI intact bilaterally Cranial nerves: Yes Equal, round and reactive pupils present Cognition (Neuro): normal cognition Extrem General: Yes full ROM, Yes no pedal edema and Yes no calf tenderness Right lower extremity: hip/thigh Details: abnormal to inspection Details: other (multiple areas of healing ecchymosis to right lateral hip), tenderness Location: of the hip Location: laterally and normal ROM and foot Details: vascular exam Details: dorsalis pedis pulse present and posterior tibial pulse present Psych Mental Status: mental status grossly normal Affect: normal affect Thought process: Normal thought process present Medications Administered Discontinued Medications Generic Name Dose Route Start Last Admin Trade Name Gurinder PRN Reason Stop Dose Admin Acetaminophen 650 mg 09/19/22 14:30 09/19/22 14:47 Acetaminophen 325 Mg Tablet PO 09/19/22 14:31 650 mg ONCE ONE Administration Medical Decision Making Medical Decision Making [facility] Narrative: Patient is a 77-year-old female with history of atrial fibrillation, HTN, T2 dm presenting to the emergency department with complaint of right hip pain after presenting for the 4th time in 2 weeks after a fall. On exam patient is awake, A+Ox3, VS WNL, afebrile, normal neurological exam without focal deficits, tenderness to right lateral hip, pelvis stable to compression, multiple areas of ecchymosis in various stages of healing noted. Patient witnessed ambulating to bathroom independently with steady gait multiple times during visit. Given reported symptoms and physical exam findings, initial differential includes right hip contusion, fracture. Unlikely dislocation. Plan: will obtain x-ray and medicate for pain. Discussed with patient PT eval/STR placement and she states I need to discuss it with my [employer] OWNER. X-ray notable for no acute fracture of hip or pelvis. My interpretation is in agreement with the radiologist's interpretation. Results discussed with patient and PT eval/CM offered. Patient states she will call her cousin to see if she is able to stay there so she is not alone. Patient states she wishes to be discharged and will go to stay with her cousin. She is declining a PT eval or case management involvement at this time. Return precautions discussed at bedside. Patient verbalized understanding of and agreement with plan of care. Differential Diagnosis Differential Diagnoses: The differential diagnosis associated with the presentation includes As per MDM. Admission/Observation Consideration of admission/observation: Escalation of care including admission/observation considered Independent Interpretation I performed an independent interpretation of an: Plain X-Ray Interpretation: No acute fracture of hip/pelvis Radiology Impression Discussion of test interpretation with radiology: I have reviewed the radiologist's reading. Radiologist Impression: XR/XR hip RT w PEL1V IMPRESSION: Unremarkable AP pelvis and right hip exam. ? Posterior hardware for L4-L5 and L5-S1 disc fusion. External Record Review External record reviewed: Inpatient record, Office record and Outpatient record Discharge Plan Discharge Clinical Impression: Contusion of hip, right, Fall Patient Disposition: Home, Self-Care Instructions: Hip Contusion (ED), Fall Prevention (ED), Fall Prevention for Older Adults (ED) Additional Instructions: You are evaluated in the emergency department today for right hip pain after a fall. Your x-ray did not show evidence of any fracture. You were offered a physical therapy evaluation for placement at short-term rehab which you declined. Return to the emergency department for worsening pain, new numbness or tingling, new weakness, or any other concerning symptoms. Prescriptions: No Action (DME) blood-glucose meter [FreeStyle Lite Meter] Kit See Rx Instructions miscellaneous .MEDSUPPLY Qty: 1 0RF Rx Instructions: 3 times a day (DME) lancets [FreeStyle Lancets] 28 gauge misc See Rx Instructions .MEDSUPPLY Qty: 100 8RF Rx Instructions: Twice a day (DME) FreeStyle Lite Strips Strip See Rx Instructions .MEDSUPPLY Qty: 100 6RF Rx Instructions: 2 times a day levothyroxine 137 mcg tablet 137 mcg PO DAILY@0600 furosemide 20 mg tablet 20 mg PO DAILY clonazepam 0.125 mg tablet,disintegrating 0.125 - 0.25 mg PO BEDTIME PRN (Reason: Restless Leg(S)) tramadol 50 mg tablet 50 mg PO Q12H PRN (Reason: severe pain) omeprazole 20 mg capsule,delayed release(DR/EC) 20 mg PO DAILY@0630 albuterol sulfate [Ventolin HFA] 90 mcg/actuation HFA aerosol inhaler 2 puff INHALATION Q4-6H PRN (Reason: dyspnea) fluticasone propion-salmeterol 500-50 mcg/dose blister with device 1 ea PO DAILY losartan 25 mg tablet 25 mg PO BEDTIME metformin 500 mg tablet extended release 24 hr 500 mg PO DAILY@1800 calcium citrate-vitamin D3 [Calcium Citrate + D] 315 mg-5 mcg (200 unit) tablet 2 tab PO DAILY bisoprolol fumarate 5 mg Tablet 5 mg PO DAILY Qty: 30 0RF lidocaine 5 % adhesive patch,medicated 1 patch topical DAILY gabapentin 300 mg capsule 300 mg PO BID diltiazem HCl 120 mg capsule,extended release 24hr 120 mg PO DAILY rosuvastatin 5 mg tablet 5 mg PO BEDTIME Januvia 100 mg tablet 100 mg PO QAM Myrbetriq 25 mg tablet extended release 24 hr 25 mg PO BEDTIME (DME) walker Misc See Rx Instructions .MEDSUPPLY Qty: 1 0RF Rx Instructions: Walker without wheels montelukast 10 mg tablet 10 mg PO BEDTIME (DME) blood sugar diagnostic Strip See Rx Instructions Not Applicable BID Qty: 10 Rx Instructions: As directed cholecalciferol (vitamin D3) 50 mcg (2,000 unit) capsule 50 mcg PO DAILY 90 Days Qty: 90 2RF ezetimibe 10 mg tablet 10 mg PO DAILY Xarelto 20 mg tablet 20 mg PO DAILY@1800
[2022-09-19 13:55] VITALS: BP 138/82; PULSE 94; O2SAT 95
[2022-09-19 14:02] VITALS: BP 133/61; PULSE 94; RESP 18; TEMP 36.7; O2SAT 100; BMI 29.9
--- OUTSIDE RECORDS SUMMARY | 2022-09-19 14:08 | XMS_ITS | Patient Health Record ---
Author Name Unknown [facility] Address [address] [facility] [place] [address] Care Team Providers Care Compliance Mgr Name Role Phone Carlitos Rodriguez Primary Care Provider Unavaila ble Black, Robina Unavailable [phone] Kathleen Stoddard MD Unavailable Unavailable ALLERGIES Allergen [...] primary osteoarthritis of the ankle and/or foot (646603637) Problem Primary osteoarthritis, left ankle and foot (M19.072) Active confirmed Localized, primary osteoarthritis of the ankle and/or foot (664924600) Problem Hallux valgus (acquired), right foot (M20.11) Active confirmed Acquired hallu x valgus (44146887) Problem Other hammer toe(s) (acquired), right foot (M20.41) Active confirmed Acquired hamme r toe of right foot (6104805157298947 ) Problem Other hammer toe(s) (acquired), left foot (M20.42) Active confirmed Acquired hamme r toe of left foot (1977380237140505 ) Problem Type 2 diabetes mellitus with diabetic polyneuropathy (E11.42) Active confirmed Polyneuropathy due to type 2 diabetes mellitus (726684465) Problem Type 1 diabetes mellitus with diabetic polyneuropathy (E10.42) Active confirmed Polyneuropathy due to diabetes mellitus type I (344815436) Encounters Encounter Location Date Provider Diagnosis [facility] [address] [address] 09/29/2021 Robina Olmedo [facility] [address] [address] 10/01/2021 Robina Olmedo [facility] [address] 05/05/2022 Robinachantal Olmedo [facility] [address] 05/06/2022 [facility] [address] [address] 06/21/2022 Robina Olmedo [facility] [address] 06/21/2022 Robina Olmedo PLAN OF TREATMENT Pending Test Test Name Order Date Tc99 3 phase Bone Scan 07/28/2020 [id number] SKIN LESIONS, 2 TO 4 03/16/19 [id number] NAIL(S) 03/16/2021 Next Appt Details Provider Name:Robina Olmedo , 11/11/2022 09:00:00 AM, [address] [place], [address], Insurance Providers Payer Name Payer Address Payer Phone Subscriber Number Group Number Insured Name Patient Relationship to Insured Coverage Start Date Coverage End Date [facility] [employer] [address] [place] [address] [phone] [id number] Teresa Andrews Self - patient is the insured MEDICAL (GENERAL) HISTORY Medical History History ICD Code Anxiety asthma Back,Hip,and Knee pain Broken bones CAD (Cholesterol) type II diabetes Fibromyalgia Gall bladder problems High blood pressure chronic sinusitis thyroid Surgical History Surgery Date(Month/Year) hysterectomy wisdom teeth extraction colonoscopy endoscopy
--- NOTE | 2022-09-19 14:13 | PC.NURSE ---
pt changed into hospital attire, oob without assistance, red socks applied- awaiting Ed provider eval call de leon within reach
[2022-09-19] MEDS: Acetaminophen 325 MG TABLET 650 MG PO (14:47)
== END 2022-09-19 16:11 | disposition home or self-care (01) ==
PROVIDERS: Emergency Provider Emergency Medicine Emergency Medical Services
DX: S70.01XA Contusion of right hip, initial encounter (principal); M25.551 Pain in right hip; W01.10XA Fall on same level from slipping, tripping and stumbling with subsequent striking against unspecified object, initial encounter; Y93.9 Activity, unspecified; Y92.9 Unspecified place or not applicable; Y99.9 Unspecified external cause status; Z87.891 Personal history of nicotine dependence; Z79.899 Other long term (current) drug therapy
CPT/HCPCS: 73502; 99284

== ENCOUNTER → 2022-09-21 13:58 | Outpatient (AMB) | payer OTHER, MEDICAID, SELFPAY ==
--- NOTE | 2022-09-21 14:02 | MHC.OFFVIS ---
Intake Vital Signs 09/21/22 14:05 Height 5 ft 1 in Weight 154 lb BMI 29.1 BP 149/129 H Blood Pressure Location Lt brachial Position Sitting Pulse 88 Intake Visit Reasons: 3 month follow up Intake Note: Patient follow up for GERD. Patient cc: GERD, Constipation, abdominal pain on ad off. Denoes any other GI issues. Installation And Service Technician Required: Yes Accompanied by: Self / Same As Patient Allergies aspirin [ASPIRIN] Allergy (Severe, Verified 09/21/22 14:02) ANAPHYLAXIS Seasonal Allergies Allergy (Intermediate, Verified 09/21/22 14:02) asthma, itch, rash HPI 3 month follow up HPI Details LAST VISIT: (1) Dyspepsia: ?Code(s): R10.13 - Epigastric pain ?Plan: Patient reports that dyspepsia is controlled for the most part with sucralfate.? Patient can continue taking that.? Patient was instructed to bring all her medications next send when she comes so we can go over what she is taking.? Will send her to see venetian blind cleaner and repairer.? (2) Postprandial abdominal bloating: ?Code(s): R14.0 - Abdominal distension (gaseous) ?Plan: Patient reports that her postprandial abdominal bloating has improved.? Patient states that she change her diet.? Sucralfate also helps.? Continue low FODMAP diet as discussed last visit (3) GERD (gastroesophageal reflux disease): ?Code(s): K21.9 - Gastro-esophageal reflux disease without esophagitis ?Qualifiers: ?Esophagitis presence:?esophagitis presence not specified? Qualified Code(s):?K21.9 - Gastro-esophageal reflux disease without esophagitis ?Plan: Continue taking sucralfate twice a day.? Patient also is avoiding dietary triggers and late night snacking.? Staying upright for minimal 3 hours after meals discussed with patient. (4) Dysphagia: ?Code(s): R13.10 - Dysphagia, unspecified ?Qualifiers: ?Dysphagia type:?pharyngoesophageal phase? Qualified Code(s):?R13.14 - Dysphagia, pharyngoesophageal phase ?Plan: Patient reports that her dysphagia is much better, occasionally she will continue to have trouble swallowing solids.? Patient was encouraged to drink fluids with each bite of solid food.? Referral to venetian blind cleaner and repairer.? Dysphagia could related to her seasonal allergies and other allergies.? Patient will be referred to venetian blind cleaner and repairer (5) Multiple allergies: ?Code(s): Z88.9 - Allergy status to unspecified drugs, medicaments and biological substances ?Plan: Referral to venetian blind cleaner and repairer made.? Patient will call [facility] for records for all colonoscopy and upper endoscopy.? I will see patient in 3 months, sooner on as needed basis.? Patient is agreeable to this plan and verbalizes understanding of instructions, he was given the opportunity to ask questions and all questions answered.? HOSPITAL DISCHARGE NOTE 07/29/2022 ADMITTED 07/24/2022 Hospital course The patient was admitted for evaluation of altered mentation and SIRS. no clear source of infection was identified at that point and she was started on empirical antibiotics and Acyclovir pending Lumber puncture which took 72 hours of holding Xarelto to be done. Her symptoms improved during that period with improvement in mental status and no recurrence of fever. Evaluated by neurology and infection disease specialist who recommended to DC all antibiotics and acyclovir as LP came back negative for WBCs and had negative encephalitis panel. A CT Scan of abdomen, pelvis and head were done showing LLL atelactasis. the patient was complaining of cough. decision to treat it as pneumonia with oral antibiotics at discharge. She presented with AFib with RVR. started on Cardizem drip as she was evaluated by cardiology with good response as heart rate controlled over the course of hospital stay. home medications changed to Bisoprolol 5 mg daily and Cardizem CD 120 mg daily with continuation of Xarelto. to be followed by cardiology as outpatient. Has significant Restless leg syndrome which was much worse at time of presentation. improved with resolution of encephalopathy. treated with gabapentin, clonazepam , tramadol p.r.n. with addition of Requip. normal iron studies. negative urine drug test. To continue requip on discharge. Had Toxic encephalopathy at presentation. overall improved to baseline. negative head CT. Family reported concerns of cognitive decline. patient has been experiencing mental decline for the past year with increased forgetfulness and weakness. has no formal diagnosis of dementia. Patient lives alone, has some support but unclear how much, unclear how compliant she is with medications. PT consulted and recommended short term rehab. The patient went to MRI of head but could not tolerate to sit still for the study and was not completed. To be discharged to nursing facility for PT. Discharge plan Continue Augmentin as prescribed Increase Bisoprolol to 5 mg daily Start Cardizem 120 mg daily Ropirinole started for restless leg Monitor Heart rate and blood pressure, report readings to PCP\Cardiology for further adjustment of the medications TODAY'S VISIT Patient is here today for follow-up. Patient reports feeling better. Patient take sucralfate at bedtime and omeprazole in the morning. Reports that her symptoms of epigastric discomfort and dyspepsia or suppressed for the most part. Patient denies any nausea or vomiting. Patient occasionally will have postprandial abdominal bloating and epigastric discomfort. Patient is moving her bowels now that she take Citrucel, however she does not feel like she empties her bowels completely. Patient denies melena, hematochezia, unintentional weight loss or ribbon like hers. Patient reported that she has been falling a lot lately. Has seen vascular surgeon and has seen neurologist. Patient is awaiting to go for MRI of her back. Patient has an appointment with venetian blind cleaner and repairer at the end of the month. [facility] Medical History Addiction, opium Arthritis Autoimmune thyroiditis CHF (congestive heart failure) Depression with anxiety Diabetes type 2, uncontrolled Dyslipidemia Essential hypertension Hypothyroidism (acquired) Obesity (BMI 30-39.9) Osteopenia Overweight (BMI 25.0-29.9) Restless leg syndrome Vitamin D deficiency Surgical History History of radical hysterectomy Hx of arthroscopy of knee Hx of cataract surgery Family History Father Diabetes Mother No problems noted. Son Substance use disorder Social History Household Members: None Housing: Condominium Do you presently have visiting nurse or other home services: Yes Unable to assess alcohol history related to: Unable to respond Alcohol intake: never Patient Tobacco Use Status: Former Tobacco user e-Cigarette/Vaping Use: Never Used Second Hand Smoke Exposure: No Advance Directives Date on File: 07/30/22 service: No Current occupational status: retired Review of Systems Const Denies weight gain and Denies weight loss ENT Reports no additional complaints, Denies dysphagia and Denies odynophagia Card Reports no additional complaints Resp Reports no additional complaints GI Reports abdominal pain (Occasional), Denies belching, Denies melena, Reports bloating, Denies change in bowel habits, Denies dysphagia, Denies excessive flatus, Denies dyspepsia, Reports heartburn, Denies diarrhea, Denies loose stools, Denies nausea, Denies odynophagia and Denies vomiting Reports no additional complaints Musc Reports no additional complaints Neuro Reports restless legs Psych Reports no additional complaints Endo Reports no additional complaints Physical Exam Vital Signs: Last Vital Signs Pulse 88 09/21/22 14:05 BP 149/129 H 09/21/22 14:05 BMI result Body Mass Index 29.1 Const General: healthy appearing, no acute distress and well developed Nutritional Appearance: obese Orientation/consciousness: patient oriented x3 HEENT Head: Yes normal to inspection, Yes normocephalic and Yes atraumatic Face and sinus: Yes normal facial exam Mouth: Normal oral and palatal mucosa present Throat: Yes posterior oropharynx normal, Yes tonsils normal and Yes uvula midline Eyes General: appearance normal, both eyes and all related structures Neck Neck: Yes normal visual inspection, Yes full ROM and Yes trachea midline Thyroid: Thyroid normal Resp Effort & Inspection: normal respiratory effort, able to speak in complete sentences, no tracheal deviation and symmetric chest movement Auscultation: clear to auscultation bilaterally Cardio Rate: regular rate Heart sounds: S1 normal heart sound present and S2 normal heart sound present GI Inspection: Yes normal to inspection, No distended and Yes obesity Palpation (GI): Soft to palpation, not firm, nontender and No hepatosplenomegaly present Auscultation: normal bowel sounds General: Yes no CVA tenderness Back/Spine/Pelvis Back: no CVA tenderness Skin General skin exam: elasticity normal, turgor normal and dry skin Neuro General: patient oriented x3 Psych Appearance: grossly normal Mental Status: mental status grossly normal Speech and movement: Normal speech and movement present Affect: normal affect Results Reviewed Results Reviewed: Abdominal CT scan 07/25/2022 FINDINGS: LUNG BASES: There is left basilar atelectasis and/or scarring. The heart size is normal.? LIVER, GALLBLADDER, AND BILIARY TREE: The liver is normal in size, shape, and diffusely hypoattenuated. No focal hepatic lesion or biliary ductal dilatation is present. The gallbladder is unremarkable with no evidence of radiopaque gallstones, gallbladder wall thickening, or obvious pericholecystic inflammatory changes.? PANCREAS: Unremarkable.? SPLEEN: Unremarkable.? ADRENAL GLANDS: Unremarkable.? KIDNEYS AND URETERS: The kidneys are normal in size, shape, and attenuation. No hydronephrosis, hydroureter, or calculi seen. No perinephric stranding. ? BLADDER: The bladder is distended without any radiopaque calculi.? GASTROINTESTINAL TRACT: The small and large bowel are unremarkable. The appendix is unremarkable.? ABDOMINAL WALL: No significant hernia is appreciated.? LYMPH NODES: Normal. VASCULAR: There is arthroscopic calcification of abdominal aorta without aneurysmal dilatation. PELVIC VISCERA: The uterus is not visualized likely surgically absent or atrophied..? OSSEOUS STRUCTURES: Bilateral L4, L5-S1 pedicle screws with interconnecting rods for fusion of L4-L5/S1 disc levels. No aggressive lytic or sclerotic process seen. There is moderate ventral spondylosis lower thoracic and upper lumbar ventral spine.? CT/CT abdomen pelvis wo IV con IMPRESSION: Diffuse hepatic steatosis without focal lesion. ? Left basilar atelectasis and/or scarring ? No acute intra-abdominal process seen. ? Assessment & Plan Assessment & Plan (1) Dyspepsia: Code(s): R10.13 - Epigastric pain Plan: Continue current dose of omeprazole. Continue taking sucralfate at bedtime. Continue avoiding dietary triggers in late night snacking. Staying upright for minimum 3 hours after meals discussed with patient. (2) Postprandial abdominal bloating: Code(s): R14.0 - Abdominal distension (gaseous) Plan: Patient reports that she is doing better and moving her bowels better. Less bloating. Continue low FODMAP diet (3) GERD (gastroesophageal reflux disease): Code(s): K21.9 - Gastro-esophageal reflux disease without esophagitis Qualifiers: Esophagitis presence: esophagitis presence not specified Qualified Code(s): K21.9 - Gastro-esophageal reflux disease without esophagitis (4) Constipation: Code(s): K59.00 - Constipation, unspecified Plan: Continue taking Citrucel. Patient can take Linzess 72 mcg daily. I will see her in 6 months, sooner on as needed basis. Patient is agreeable to this plan and verbalizes understanding of instructions. She was given the opportunity to ask questions and all questions answered. Thank you for allowing me to participate in her care Medications: New sucralfate 10 mL PO BEDTIME 400 mL 3RF K21.9 - Gastro-esophageal reflux disease without esophagitis methylcellulose (laxative) (Citrucel) take it with full glass of water 500 mg PO DAILY 30 tabs 2RF K59.00 - Constipation, unspecified linaclotide (Linzess) 72 mcg PO DAILY 30 caps 2RF Discontinued metformin ER 500 mg PO DAILY 90 days 90 tabs 1RF E11.65 - Type 2 diabetes mellitus with hyperglycemia losartan 25 mg PO DAILY 90 days 90 tabs 2RF I10 - Essential (primary) hypertension calcium citrate-vitamin D3 315 mg-5 mcg (200 unit) 2 tabs PO BID 30 days 120 tabs 4RF M85.80 - Other specified disorders of bone density and structure, unspecified site sucralfate Please take it at noon time and at bedtime 10 mL PO BID 400 mL 3RF K21.9 - Gastro-esophageal reflux disease without esophagitis fluticasone propion-salmeterol 500-50 mcg/dose 1 ea PO BID 60 ea 6RF Coding Level of Care Code Est Pt Level 4 (09137) Diagnoses Dyspepsia R10.13 Postprandial abdominal bloating R14.0 GERD (gastroesophageal reflux disease) K21.9 Esophagitis presence: esophagitis presence not specified Constipation K59.00 Time Spent (min) 40 Comment 25 minutes spent with patient and additional 15 minutes spent reviewing her records
[2022-09-21 14:05] VITALS: BP 149/129; PULSE 88; BMI 29.1
== END ==
PROVIDERS: Visit Provider Nurse Practitioner Family
DX: R10.13 Epigastric pain (principal); R14.0 Abdominal distension (gaseous); K21.9 Gastro-esophageal reflux disease without esophagitis; K59.00 Constipation, unspecified
CPT/HCPCS: 99214

== ENCOUNTER → 2022-09-21 13:58 | Outpatient (BNVA) | payer OTHER, MEDICAID, SELFPAY | PROVIDERS: Visit Provider Nurse Practitioner Family | DX: R10.13 Epigastric pain (principal); R14.0 Abdominal distension (gaseous); K21.9 Gastro-esophageal reflux disease without esophagitis; K59.00 Constipation, unspecified; Z79.899 Other long term (current) drug therapy | CPT/HCPCS: 99212 ==

== ENCOUNTER 2022-09-24 13:53 | Outpatient (REF) | payer OTHER, SELFPAY ==
--- NOTE | 2022-09-24 | EMG_ITS ---
Please see EMG / Nerve Conduction Report. MTDD
--- NOTE | 2022-09-24 14:34 | P.EMGPH_ITS ---
Physiatry - EMG/NCS EMG/NCS Chief complaint: frequent falls, lower extremity weakness, history of restless legs syndrome, history of lumbar radiculopathy. Reason for referral: Evaluate for neuropathy versus radiculopathy Referred by: Dr. Jo Blackwell Procedure done: Bilateral lower extremity NCS/EMG Precautions and/or limitations: On Xarelto for atrial fibrillation The limb temperature was monitored continuously and remained between 32-36 degrees C during the performance of the NCS. Nerve Conduction Studies Anti Sensory Summary Table ?Stim Site NR Onset (ms) Norm Onset (ms) Peak (ms) Norm Peak (ms) O-P Amp (?V) Norm O-P Amp Site1 Site2 Delta-0 (ms) Dist (cm) Amari (m/s) Norm Amari (m/s) Left Sural Anti Sensory (Lat Mall) Calf ? 2.8 3.4 <4.0 5.0 >5.0 Calf Lat Mall 2.8 14.0 50 Right Sural Anti Sensory (Lat Mall) Calf ? 1.7 2.3 <4.0 5.0 >5.0 Calf Lat Mall 1.7 14.0 82 Motor Summary Table ?Stim Site NR Onset (ms) Norm Onset (ms) O-P Amp (mV) Norm O-P Amp iAmp (mV) Amp (1st) (%) Site1 Site2 Delta-0 (ms) Dist (cm) Amari (m/s) Norm Amari (m/s) Left Peroneal Motor (Ext Dig Brev) Ankle ? 5.0 <4.0 1.3 >2.5 2.4 100.0 Ankle Ext Dig Brev 5.0 0.0 B Fib ? 12.6 1.4 1.9 107.7 B Fib Ankle 7.6 31.5 41 A >40 Poplt ? 13.3 1.0 1.8 76.9 Poplt B Fib 0.7 4.0 57 >40 Right Peroneal Motor (Ext Dig Brev) Ankle ? 5.0 <4.0 2.0 >2.5 2.5 100.0 Ankle Ext Dig Brev 5.0 0.0 B Fib ? 11.6 1.8 2.3 90.0 B Fib Ankle 6.6 31.5 48 >40 Poplt ? 12.7 1.8 2.3 90.0 Poplt B Fib 1.1 3.0 27 >40 Left Tibial Motor (Abd Gamboa Brev) Ankle ? 6.1 <5 4.5 >2.5 5.6 100.0 Ankle Abd Gamboa Brev 6.1 0.0 Knee ? 14.5 1.7 2.5 37.8 Knee Ankle 8.4 22.0 26 >40 Right Tibial Motor (Abd Gamboa Brev) Ankle ? 6.1 <5 3.3 >2.5 4.1 100.0 Ankle Abd [place] Brev 6.1 0.0 Knee ? 14.8 1.7 1.8 51.5 Knee Ankle 8.7 32.5 37 >40 H Reflex Studies ?NR H-Lat (ms) L-R H-Lat (ms) L-R Lat Norm Left Tibial (Gastroc) ? 9.45 0.59 <2.0 Right Tibial Run #2 (Gastroc) ? 8.86 0.59 <2.0 EMG ?Side Muscle Nerve Root Ins Act Fibs Psw Amp Dur Poly Recrt Int Pat Comment Left AntTibialis Dp Br Peron L4-5 Incr 1+ 1+ Nml Nml 0 Nml Complete Left AbdHallucis MedPlantar S1-2 Incr 1+ 1+ Nml Nml 0 Nml Complete Left Peroneus Long Sup Br Peron L5-S1 Nml Nml Nml Nml Nml 0 Nml Complete Left MedGastroc Tibial S1-2 Nml Nml Nml Nml Nml 0 Nml Complete Left VastusMed Femoral L2-4 Nml Nml Nml Nml Nml 0 Nml Complete Right AbdHallucis MedPlantar S1-2 Nml Nml Nml Nml Nml 0 Nml Complete Right AntTibialis Dp Br Peron L4-5 Nml Nml Nml Nml Nml 0 Nml Complete Right Peroneus Long Sup Br Peron A L5-S1 Nml Nml Nml Nml Nml 0 Nml Complete Right MedGastroc Tibial S1-2 Nml Nml Nml Nml Nml 0 Nml Complete Right VastusMed Femoral L2-4 Nml Nml Nml Nml Nml 0 Nml Complete FINDINGS: Right peroneal motor nerve showed prolonged distal latency, small amplitude and slow conduction velocity across fibula. Left peroneal motor nerve showed prolonged distal latency, small amplitude and normal conduction velocity. Bilateral tibial motor nerves showed prolonged distal latency, normal amplitude and slow conduction velocity. Bilateral sural nerves showed normal peak latency H reflexes were present bilateral with normal latencies. Concentric needle EMG was performed in selected muscles of the bilateral lower extremity. Study revealed Signs of electric abnormalities as shown in the table below. Left tibialis anterior and AH showed increased insertional activity, fibrillations and PSWs. IMPRESSION: 1. This is an abnormal study. 2. There is electrodiagnostic evidence for bilateral L5-S1 radiculopathy, more evident on the left than right. 3. 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 4. There is no electrodiagnostic evidence for peripheral neuropathy given normal sural nerves and normal H reflexes. Thank you for your kind referral. Marleny Brooks MD, EMI Board Certified, [place] [employer] and Rehabilitation (ABPMR) Board Certified, [place] Board of Electrodiagnostic Medicine (ABEM)
== END 2022-09-24 13:54 | disposition home or self-care (01) ==
LOC: HO.NEURO 13:53
PROVIDERS: Visit Provider Student in an Organized Health Care Education/Training Program
DX: R29.6 Repeated falls (principal); R53.1 Weakness
CPT/HCPCS: 95860; 95886; 95907; 95910

== ENCOUNTER → 2022-09-24 13:53 | Outpatient (BNV) | payer OTHER, SELFPAY | PROVIDERS: Visit Provider Physical Medicine & Rehabilitation | DX: M54.17 Radiculopathy, lumbosacral region (principal); S84.11XA Injury of peroneal nerve at lower leg level, right leg, initial encounter | CPT/HCPCS: 95886; 95909 ==

== ENCOUNTER 2022-09-26 01:25 | Inpatient (IN) | payer OTHER, SELFPAY ==
[2022-09-26] VITALS (18 sets, daily range): BP systolic 101–175; BP diastolic 42–101; PULSE 63–134; RESP 10–19; TEMP 36.5–38.2; O2SAT 91–100; BMI 28.9
--- NOTE | ~2022-09-26 | XR_ITS ---
EXAMINATION: XR ABDOMEN KUB CLINICAL INDICATION: The MRI screening COMPARISON: None available. TECHNIQUE: AP view of the abdomen. FINDINGS: There is no loose radiopaque foreign bodies in the abdomen or pelvis. There is Nails catheter in the urinary tract and there are posterior fusion hardware at the level of L4-S1. There is nonspecific bowel gas pattern. XR/XR KUB IMPRESSION: No radiographic foreign bodies identified
--- NOTE | ~2022-09-26 | CT_ITS ---
EXAMINATION: NONCONTRAST HEAD CT NONCONTRAST CERVICAL SPINE CT INDICATION INFORMATION: Fall with head strike COMPARISON: 09/13/2022 TECHNIQUE: Separate noncontrast CT examinations of the head and cervical spine were performed. Coronal and sagittal images were created for each examination at the technologist workstation. This CT examination was performed using dose optimization techniques as appropriate, variously including the following: *Automated exposure control *Adjustment of mA and/or kV according to patient size (this includes techniques or standardized protocols for targeted exams where dose is matched to indication/reason for exam; i.e. extremities or head) *Use of iterative reconstruction technique DLP: 1062 mGy-cm FINDINGS: Head: Motion limited evaluation. There is no evidence of acute intracranial hemorrhage or territorial infarction. No abnormal mass effect or midline shift is seen. [place] to white matter differentiation is well preserved. No extra-axial fluid collections are identified. No hydrocephalus. Proportional prominence of the ventricles and sulcal spaces is consistent with mild volume loss. Patchy periventricular and deep white matter hypoattenuation is consistent with mild small vessel ischemic changes. Right supraorbital mild soft tissue swelling. No calvarial fracture. The mastoid air cells and visualized portions of the paranasal sinuses are well aerated. Cervical spine: Motion limited evaluation. There is anatomic alignment of the vertebral bodies and posterior elements. The atlantoaxial and atlantooccipital articulations are intact. Vertebral body heights are maintained. There is multilevel intervertebral disc space narrowing with endplate osteophyte formation and facet arthropathy. No evidence of acute fracture. No prevertebral soft tissue swelling. Visualized portions of the lung apices are unremarkable. The thyroid gland is unremarkable. CT/CT cervical spine wo IV con IMPRESSION: Motion limited study. 1. No acute intracranial finding. 2. No acute fracture or malalignment of the cervical spine. Mild degenerative changes.
--- NOTE | ~2022-09-26 | XR_ITS ---
EXAMINATION: XR CHEST CLINICAL INFORMATION: Short of breath COMPARISON: 09/13/2022 TECHNIQUE: Frontal view of the chest was obtained. FINDINGS: Cardiac leads overlie the chest. The lungs are well expanded. Bronchial wall thickening noted. There is no focal consolidation, edema, or effusion. No pneumothorax. The cardiomediastinal silhouette is within normal limits. No acute osseous abnormality. XR/XR chest 1V IMPRESSION: No dense consolidation. Bronchial wall thickening can be seen with a small airways process such as asthma or atypical/viral infection.
--- NOTE | ~2022-09-26 | XR_ITS ---
EXAMINATION: XR CHEST CLINICAL INFORMATION: Pre-MRI screening COMPARISON: September 2022 TECHNIQUE: Frontal view of the chest was obtained. FINDINGS: Allowing for difference in technique there is no interval change since previous study in appearance of clear lungs and mild prominent interstitial lung markings. XR/XR chest 1V IMPRESSION: Mild interstitial edema
--- NOTE | ~2022-09-26 | MR_ITS ---
EXAMINATION: MR BRAIN WITHOUT AND WITH CONTRAST CLINICAL INFORMATION: Encephalopathy. Stroke. Encephalitis. COMPARISON: CT head from 09/26/2022. Brain MRI from 07/29/2022. TECHNIQUE: MRI of the brain was obtained using routine sequences without and following the administration of 7.5 mL of Gadavist intravenous contrast. FINDINGS: No focal restricted diffusion is demonstrated to suggest acute or subacute cerebral ischemia. Scattered periventricular and deep white matter T2 FLAIR hyperintensities consistent with mild underlying microangiopathy. Proportional prominence of the ventricles and sulcal spaces without evidence of obstructive hydrocephalus. No abnormal mass effect. No midline shift. Normal appearance of the pituitary gland. Normal positioning of the cerebellar tonsils. Normal arterial and venous vascular flow voids are present. No abnormal contrast enhancement. Normal, homogeneous marrow signal. Mild mucosal thickening of the paranasal sinuses. No signal abnormalities within the mastoids. Bilateral lens extractions. MR/MR head/brain wo/w con IMPRESSION: 1. No acute intracranial abnormalities. No abnormal intracranial enhancement. 2. Mild underlying microangiopathy and generalized cerebral volume loss.
--- NOTE | 2022-09-26 01:48 | PC.NURSE ---
Pt presents to ER via EMS after a mechanical fall at a friend's house. Pt denies LOC, does endorse headstrike. Pt reports pain over the right eyebrow, back of her head, and low back. No bleeding present. Pt refused c-collar, per EMS. Pt has restless leg syndrome, which has been causing a lot of involuntary movements. Pt has also been reporting increasing dizziness recently. Pt reports she has been falling every day. Pt has bruising on her right hip and left knee. She thought she would be able to manage living where she is, however, she is now stating she would like to go to rehab. Pt is A&Ox4, GCS15, with warm, dry skin. Pt is Czech Speaking but can make her needs known in [place]. Pt is currently resting in bed. Pt is having a lot of involuntary movements. Labs ordered, pt waiting for ED provider.
--- OUTSIDE RECORDS SUMMARY | 2022-09-26 01:55 | XMS_ITS | Patient Health Record ---
Author Name Unknown [facility] [address] [place] [address] Care Team Providers Care It Operations Analyst Name Role Phone Carlitos Rodriguez Primary Care Provider Unavaila ble Black, Robina Unavailable [phone] Kathleen Stoddard MD Unavailable Unavailable ALLERGIES Allergen [...] primary osteoarthritis of the ankle and/or foot (698529184) Problem Primary osteoarthritis, left ankle and foot (M19.072) Active confirmed Localized, primary osteoarthritis of the ankle and/or foot (869703444) Problem Hallux valgus (acquired), right foot (M20.11) Active confirmed Acquired hallu x valgus (76923851) Problem Other hammer toe(s) (acquired), right foot (M20.41) Active confirmed Acquired hamme r toe of right foot (5262150748584341 ) Problem Other hammer toe(s) (acquired), left foot (M20.42) Active confirmed Acquired hamme r toe of left foot (8108553351241543 ) Problem Type 2 diabetes mellitus with diabetic polyneuropathy (E11.42) Active confirmed Polyneuropathy due to type 2 diabetes mellitus (372334102) Problem Type 1 diabetes mellitus with diabetic polyneuropathy (E10.42) Active confirmed Polyneuropathy due to diabetes mellitus type I (399434690) Encounters Encounter Location Date Provider Diagnosis [facility] [address] [address] 09/29/2021 Robina Olmedo [facility] [address] [address] 10/01/2021 Robina Olmedo [facility] [address] 05/05/2022 Robinachantal Olmedo [facility] [address] 05/06/2022 [facility] [address] [address] 06/21/2022 Robina Olmedo [facility] [address] 06/21/2022 Robina Olmedo PLAN OF TREATMENT Pending Test Test Name Order Date Tc99 3 phase Bone Scan 07/28/2020 [id number] SKIN LESIONS, 2 TO 4 03/16/19 [id number] NAIL(S) 03/16/2021 Next Appt Details Provider Name:Robina Olmedo , 11/11/2022 09:00:00 AM, [address] [place], [address], Insurance Providers Payer Name Payer Address Payer Phone Subscriber Number Group Number Insured Name Patient Relationship to Insured Coverage Start Date Coverage End Date [facility] [employer] [address] [place] [address] [phone] [id number] Teresa Andrews Self - patient is the insured MEDICAL (GENERAL) HISTORY Medical History History ICD Code Anxiety asthma Back,Hip,and Knee pain Broken bones CAD (Cholesterol) type II diabetes Fibromyalgia Gall bladder problems High blood pressure chronic sinusitis thyroid Surgical History Surgery Date(Month/Year) hysterectomy wisdom teeth extraction colonoscopy endoscopy
--- NOTE | 2022-09-26 02:10 | ED.FALL ---
HPI - Fall General Chief Complaint: Fall Stated Complaint: Fall/Dizziness Time Seen by Provider: 09/26/22 02:01 Source: patient Mode of arrival: EMS Limitations: no limitations History of Present Illness HPI Narrative: 77 old female with a PMH significant for AFib on Xarelto, non insulin-dependent diabetes, HTN, HLD, hypothyroidism, restless leg syndrome, asthma, with frequent ED visits for frequent falls comes here again after the fall. Patient does have restless leg syndrome was in the kitchen having cereal and suddenly felt unsteady on her feet and she fell hitting her right forehead to the ground no loss of consciousness no chest pain or palpitation patient was seen here on 09/10 and 09/13 for fall and been here before also multiple times for the fall patient taking pregabalin for restless legs which was started on 09/22 by her PCP Related Data Home Medications Medication Instructions Recorded Confirmed blood sugar diagnostic #10 ea 11/23/19 09/02/22 montelukast 10 mg tablet 10 mg PO BEDTIME 11/23/19 09/02/22 ezetimibe 10 mg tablet 10 mg PO DAILY 06/17/22 09/02/22 rivaroxaban 20 mg tablet (Xarelto) 20 mg PO DAILY@1800 06/17/22 09/02/22 albuterol sulfate 90 mcg/actuation 2 puff inhalation Q4-6H PRN dyspnea 07/24/22 09/02/22 aerosol inhaler (Ventolin HFA) calcium citrate 315 mg-vitamin D3 2 tab PO DAILY 07/24/22 09/02/22 5 mcg (200 unit) tablet (Calcium Citrate + D) clonazepam 0.125 mg disintegrating 0.125 - 0.25 mg PO BEDTIME PRN 07/24/22 09/02/22 tablet Restless Leg(S) furosemide 20 mg tablet 20 mg PO DAILY 07/24/22 09/02/22 levothyroxine 137 mcg tablet 137 mcg PO DAILY@0600 07/24/22 09/02/22 metformin 500 mg tablet,extended 500 mg PO DAILY@1800 07/24/22 09/02/22 release 24 hr omeprazole 20 mg capsule,delayed 20 mg PO DAILY@0630 07/24/22 09/02/22 release diltiazem HCl 120 mg 120 mg PO DAILY 09/14/22 capsule,extended release 24 hr gabapentin 300 mg capsule 300 mg PO BID 09/14/22 mirabegron 25 mg tablet,extended 25 mg PO BEDTIME 09/14/22 release 24 hr (Myrbetriq) rosuvastatin 5 mg tablet 5 mg PO BEDTIME 09/14/22 sitagliptin phosphate 100 mg 100 mg PO QAM 09/14/22 tablet (Januvia) Previous Rx's Medication Instructions Recorded walker #1 ea 02/29/20 blood-glucose meter (FreeStyle #1 ea 06/19/20 Lite Meter kit) lancets 28 gauge (FreeStyle #100 ea 06/19/20 Lancets) blood sugar diagnostic (FreeStyle #100 ea 11/12/21 Lite Strips) cholecalciferol (vitamin D3) 50 50 mcg PO DAILY 90 days #90 caps 11/27/21 mcg (2,000 unit) capsule bisoprolol fumarate 5 mg tablet 5 mg PO DAILY #30 tabs 07/29/22 linaclotide 72 mcg capsule 72 mcg PO DAILY #30 caps 09/21/22 (Linzess) methylcellulose (laxative) 500 mg 500 mg PO DAILY #30 tabs 09/21/22 tablet (Citrucel) sucralfate 100 mg/mL oral 10 ml PO BEDTIME #400 mL 09/21/22 suspension Allergies Allergy/AdvReac Type Severity Reaction Status Date / Time aspirin [ASPIRIN] Allergy Severe ANAPHYLAXIS Verified 09/21/22 14:02 Seasonal Allergies Allergy Intermediate asthma, Verified 09/21/22 14:02 itch, rash Review of Systems Review of Systems: Yes all other systems are reviewed and are negative PMF Past Medical History Medical History Addiction, opium Arthritis Autoimmune thyroiditis CHF (congestive heart failure) Depression with anxiety Diabetes type 2, uncontrolled Dyslipidemia Essential hypertension Hypothyroidism (acquired) Obesity (BMI 30-39.9) Osteopenia Overweight (BMI 25.0-29.9) Restless leg syndrome Vitamin D deficiency Surgical History History of radical hysterectomy Hx of arthroscopy of knee Hx of cataract surgery Family History Family History Father Diabetes Mother No problems noted. Son Substance use disorder Social History Social History Household Members: None Housing: Condominium Do you presently have visiting nurse or other home services: Yes Unable to assess alcohol history related to: Unable to respond Alcohol intake: never Patient Tobacco Use Status: Former Tobacco user Smoked in Last 30 Days: No e-Cigarette/Vaping Use: Never Used Second Hand Smoke Exposure: No Use of substances other than those prescribed or required for medical reasons: No Advance Directives: Yes Advance Directives on File: Yes Advance Directives Date on File: 07/30/22 service: No Current occupational status: retired Physical Exam Vital Signs: Vital Signs: Last Vital Signs Temp 97.7 F 09/26/22 01:46 Pulse 134 H 09/26/22 06:00 Resp 18 09/26/22 06:00 BP 154/99 H 09/26/22 06:00 Pulse Ox 96 09/26/22 06:00 O2 Del Method Nasal Cannula 09/26/22 06:00 O2 Flow Rate 1 09/26/22 06:00 BMI result Body Mass Index 28.9 Appearance: Alert. Oriented X3. No acute distress. Very anxious Eyes: PERRLA, No Nystagmus ENT: Pharynx normal. Oral Mucosa moist ecchymosis right foreign Neck: Normal inspection. Neck supple. CVS: Normal heart rate and rhythm. Pulses normal. Respiratory: No respiratory distress. Equal air entry bilateral, no wheezing/rales/rhonchi Abdomen: Soft and nontender. Bowel sounds are present, no mass palpable, no CVA tenderness Skin: Skin warm and dry. Normal skin color. Normal skin turgor. Extremities: No lower extremity edema. No calf tenderness frequent leg movements Neuro: Oriented X 3. No motor deficit. No sensory deficit.No cerebellar signs , cranial nerves II-XII intact Medications Administered Discontinued Medications Generic Name Dose Route Start Last Admin Trade Name Freq PRN Reason Stop Dose Admin Diltiazem HCl 10 mg 09/26/22 06:22 09/26/22 06:29 Diltiazem Hcl 50 Mg/10 Ml Vial IVPUSH 09/26/22 06:23 10 mg STAT STA Administration Haloperidol Lactate 2 mg 09/26/22 06:17 09/26/22 06:29 Haloperidol Lactate 5 Mg/Ml Vial IVPUSH 09/26/22 06:18 2 mg ONCE ONE Administration Ketamine HCl 100 mg 09/26/22 05:08 09/26/22 05:15 Ketamine Hcl 500 Mg/5 Ml Vial IM 09/26/22 05:09 100 mg ONCE ONE Administration Lorazepam 2 mg 09/26/22 02:51 09/26/22 03:00 Lorazepam 1 Mg Tablet PO 09/26/22 02:52 2 mg ONCE ONE Administration Lorazepam 1 mg 09/26/22 06:17 09/26/22 06:28 Lorazepam 2 Mg/Ml Vial IVPUSH 09/26/22 06:18 1 mg ONCE ONE Administration Medical Decision Making Medical Decision Making [facility] Narrative: Patient restless leg syndrome with frequent falls was admitted here on 07/30 for same workup was negative and discharged home patient fell again will do arterial blood gases to rule out metabolic encephalopathy previous admission gases on ammonia level was normal no history of substance abuse CT scan of the head and C-spine negative Labs are stable patient is still very restless tachycardic with AFib will admit patient for AFib with fast ventricular rate and encephalopathy Differential Diagnosis Differential Diagnoses: The differential diagnosis associated with the presentation includes Metabolic encephalopathy/restless leg syndrome/CO2 narcosis/AFib/subdural bleed Admission/Observation Consideration of admission/observation: Escalation of care including admission/observation considered Lab Data [facility] Lab Attestation statement: I reviewed the patient's lab results. 09/26/22 03:23 09/26/22 03:23 Labs: Lab Results 09/26/22 09/26/22 09/26/22 Range/Units 03:23 03:23 05:08 WBC 9.9 (4.8-10.8) X10*3/uL RBC 4.22 (4.20-5.50) X10*6/uL Hgb 12.0 (12.0-16.0) g/dl Hct 37.0 (37.0-47.0) % MCV 87.7 (80.0-98.0) fL MCH 28.4 (27.0-33.0) pg MCHC 32.4 (31.0-35.0) g/dl RDW 14.0 (11.0-16.0) % Plt Count 291 (160-400) X10*3/uL MPV 10.1 (9.4-12.3) fL Immature Gran % (Auto) 0.3 (0.0-0.4) % Neut % (Auto) 61.0 (45-73) % Lymph % (Auto) 27.5 (20-40) % [place] % (Auto) 9.0 (2-11) % Eos % (Auto) 1.5 (0-4) % Baso % (Auto) 0.7 (0-2) % Lymph # (Auto) 2.7 (1.2-4.9) X10*3/uL [place] # (Auto) 0.9 (0.1-1.2) X10*3/uL Eos # (Auto) 0.2 (0.0-0.4) X10*3/uL Baso # (Auto) 0.1 (0.0-0.2) X10*3/uL Abs Immat Gran (auto) 0.03 (0.00-0.03) X10*3/uL Absolute Neuts (auto) 6.0 (2.0-8.3) x10*3/uL Absolute Nucleated RBC 0.000 (0.0-0.012) X10*3/uL Nucleated RBC % (auto) 0.0 (0.0-0.2) /100WBC O2 Saturation % ABG pH at Pt Temp (7.35-7.45) ABG pCO2 at Pt Temp (32-45) mmHg ABG pO2 at Pt Temp (83-108) mmHg ABG HCO3 (22-26) mmol/L ABG Base Excess (Actual) mmol/L Sodium 140 (135-145) mmol/L Potassium 4.6 D (3.3-5.1) mmol/L Chloride 108 (96-108) mmol/L Carbon Dioxide 25 (22-29) mmol/L Anion Gap 12 (12-20) BUN 17 H (9-16) mg/dL Creatinine 0.78 (0.5-1.4) mg/dL Estim Creat Clear Calc 55.5 Estimated GFR > 60 POC Glucose 105 (60-115) mg/dL Random Glucose 95 (60-115) mg/dL Calcium 9.0 (8.4-10.2) mg/dL Total Bilirubin 0.4 (0.0-1.0) mg/dL AST 26 (5-31) U/L ALT 18 (0-31) U/L Alkaline Phosphatase 74 (39-117) U/L Ammonia (13-55) umol/L Total Protein 7.2 (6.5-8.0) g/dL Albumin 3.7 (3.5-5.0) g/dL Urine Color Urine Appearance Urine pH (5.0-9.0) Ur Specific [place] (1.005-1.025) Urine Protein (Neg-Trace) mg/dL Urine Glucose (UA) (Negative) mg/dL Urine Ketones (Negative) mg/dL Urine Blood (Negative) Urine Nitrite (Negative) Ur Leukocyte Esterase (Negative) Urine Opiates Screen (Not Detect) Urine Fentanyl Screen (Not Detect) Ur Barbiturates Screen (Not Detect) Ur Phencyclidine Scrn (Not Detect) Ur Amphetamines Screen (Not Detect) U Benzodiazepines Scrn (Not Detect) Urine Cocaine Screen (Not Detect) U Marijuana (THC) Screen (Not Detect) Ethyl Alcohol < 10 mg/dL 09/26/22 09/26/22 09/26/22 Range/Units 05:26 05:50 05:50 WBC (4.8-10.8) X10*3/uL RBC (4.20-5.50) X10*6/uL Hgb (12.0-16.0) g/dl Hct (37.0-47.0) % MCV (80.0-98.0) fL MCH (27.0-33.0) pg MCHC (31.0-35.0) g/dl RDW (11.0-16.0) % Plt Count (160-400) X10*3/uL MPV (9.4-12.3) fL Immature Gran % (Auto) (0.0-0.4) % Neut % (Auto) (45-73) % Lymph % (Auto) (20-40) % [place] % (Auto) (2-11) % Eos % (Auto) (0-4) % Baso % (Auto) (0-2) % Lymph # (Auto) (1.2-4.9) X10*3/uL [place] # (Auto) (0.1-1.2) X10*3/uL Eos # (Auto) (0.0-0.4) X10*3/uL Baso # (Auto) (0.0-0.2) X10*3/uL Abs Immat Gran (auto) (0.00-0.03) X10*3/uL Absolute Neuts (auto) (2.0-8.3) x10*3/uL Absolute Nucleated RBC (0.0-0.012) X10*3/uL Nucleated RBC % (auto) (0.0-0.2) /100WBC O2 Saturation 98.0 % ABG pH at Pt Temp 7.41 (7.35-7.45) ABG pCO2 at Pt Temp 38 (32-45) mmHg ABG pO2 at Pt Temp 103 (83-108) mmHg ABG HCO3 24 (22-26) mmol/L ABG Base Excess (Actual) 0.5 mmol/L Sodium (135-145) mmol/L Potassium (3.3-5.1) mmol/L Chloride (96-108) mmol/L Carbon Dioxide (22-29) mmol/L Anion Gap (12-20) BUN (9-16) mg/dL Creatinine (0.5-1.4) mg/dL Estim Creat Clear Calc Estimated GFR POC Glucose (60-115) mg/dL Random Glucose (60-115) mg/dL Calcium (8.4-10.2) mg/dL Total Bilirubin (0.0-1.0) mg/dL AST (5-31) U/L ALT (0-31) U/L Alkaline Phosphatase (39-117) U/L Ammonia 34 (13-55) umol/L Total Protein (6.5-8.0) g/dL Albumin (3.5-5.0) g/dL Urine Color Urine Appearance Urine pH (5.0-9.0) Ur Specific [place] (1.005-1.025) Urine Protein (Neg-Trace) mg/dL Urine Glucose (UA) (Negative) mg/dL Urine Ketones (Negative) mg/dL Urine Blood (Negative) Urine Nitrite (Negative) Ur Leukocyte Esterase (Negative) Urine Opiates Screen Not Detected (Not Detect) Urine Fentanyl Screen POSITIVE H (Not Detect) Ur Barbiturates Screen Not Detected (Not Detect) Ur Phencyclidine Scrn Not Detected (Not Detect) Ur Amphetamines Screen Not Detected (Not Detect) U Benzodiazepines Scrn Not Detected (Not Detect) Urine Cocaine Screen Not Detected (Not Detect) U Marijuana (THC) Screen Not Detected (Not Detect) Ethyl Alcohol mg/dL 09/26/22 Range/Units 05:50 WBC (4.8-10.8) X10*3/uL RBC (4.20-5.50) X10*6/uL Hgb (12.0-16.0) g/dl Hct (37.0-47.0) % MCV (80.0-98.0) fL MCH (27.0-33.0) pg MCHC (31.0-35.0) g/dl RDW (11.0-16.0) % Plt Count (160-400) X10*3/uL MPV (9.4-12.3) fL Immature Gran % (Auto) (0.0-0.4) % Neut % (Auto) (45-73) % Lymph % (Auto) (20-40) % [place] % (Auto) (2-11) % Eos % (Auto) (0-4) % Baso % (Auto) (0-2) % Lymph # (Auto) (1.2-4.9) X10*3/uL [place] # (Auto) (0.1-1.2) X10*3/uL Eos # (Auto) (0.0-0.4) X10*3/uL Baso # (Auto) (0.0-0.2) X10*3/uL Abs Immat Gran (auto) (0.00-0.03) X10*3/uL Absolute Neuts (auto) (2.0-8.3) x10*3/uL Absolute Nucleated RBC (0.0-0.012) X10*3/uL Nucleated RBC % (auto) (0.0-0.2) /100WBC O2 Saturation % ABG pH at Pt Temp (7.35-7.45) ABG pCO2 at Pt Temp (32-45) mmHg ABG pO2 at Pt Temp (83-108) mmHg ABG HCO3 (22-26) mmol/L ABG Base Excess (Actual) mmol/L Sodium (135-145) mmol/L Potassium (3.3-5.1) mmol/L Chloride (96-108) mmol/L Carbon Dioxide (22-29) mmol/L Anion Gap (12-20) BUN (9-16) mg/dL Creatinine (0.5-1.4) mg/dL Estim Creat Clear Calc Estimated GFR POC Glucose (60-115) mg/dL Random Glucose (60-115) mg/dL Calcium (8.4-10.2) mg/dL Total Bilirubin (0.0-1.0) mg/dL AST (5-31) U/L ALT (0-31) U/L Alkaline Phosphatase (39-117) U/L Ammonia (13-55) umol/L Total Protein (6.5-8.0) g/dL Albumin (3.5-5.0) g/dL Urine Color Yellow Urine Appearance Clear Urine pH 5.5 (5.0-9.0) Ur Specific [place] 1.020 (1.005-1.025) Urine Protein Negative (Neg-Trace) mg/dL Urine Glucose (UA) Negative (Negative) mg/dL Urine Ketones Negative (Negative) mg/dL Urine Blood Negative (Negative) Urine Nitrite Negative (Negative) Ur Leukocyte Esterase Negative (Negative) Urine Opiates Screen (Not Detect) Urine Fentanyl Screen (Not Detect) Ur Barbiturates Screen (Not Detect) Ur Phencyclidine Scrn (Not Detect) Ur Amphetamines Screen (Not Detect) U Benzodiazepines Scrn (Not Detect) Urine Cocaine Screen (Not Detect) U Marijuana (THC) Screen (Not Detect) Ethyl Alcohol mg/dL Critical Care Time Critical Care Time Critical Care Time: Yes Total Critical Care Time: 60 Attestation: The patient was critically ill with a high probability of imminent or life threatening deterioration. I spent greater than 70 minutes of discontinuous time evaluating the patient,delivering critical care at the bedside, discussing and evaluating pertinent data with consultants. Critical care time does not include time spent performing separately billable procedures or teaching. Total time spent performing critical care was 60 minutes. Discharge Plan Discharge Clinical Impression: Metabolic encephalopathy, Atrial fibrillation with rapid ventricular response, Frequent falls Patient Disposition: Admitted As Inpatient
--- NOTE | 2022-09-26 02:43 | PC.NURSE ---
Pt is very restless at this time. Pt is taking her clothes off and rolling around in the bed. Pt is redirectable for moments at a time. Seizure pads were put on the bed.
[2022-09-26] MEDS: LORazepam 1 MG TABLET 2 MG PO (03:00)
[2022-09-26 03:26] LABS: MANUAL DIFF FLAG NO
[2022-09-26 03:27] LABS: Basophils Absolute Auto 0.1 X10*3/uL (0.0-0.2); Basophils Percent Auto 0.7 % (0-2); Eosinophils Absolute Auto 0.2 X10*3/uL (0.0-0.4); Eosinophils Percent Auto 1.5 % (0-4); Imm Gran Abs Auto 0.03 X10*3/uL (0.00-0.03); Imm Gran Pct Auto 0.3 % (0.0-0.4); Lymphocytes Absolute Auto 2.7 X10*3/uL (1.2-4.9); Lymphocytes Percent Auto 27.5 % (20-40); Mean Corpuscular HGB Conc 32.4 g/dl (31.0-35.0); Mean Corpuscular Hemoglobin 28.4 pg (27.0-33.0); Mean Corpuscular Volume 87.7 fL (80.0-98.0); Mean Platelet Volume 10.1 fL (9.4-12.3); Monocytes Absolute Auto 0.9 X10*3/uL (0.1-1.2); Platelet Count 291 X10*3/uL (160-400); Red Blood Count 4.22 X10*6/uL (4.20-5.50); White Blood Count 9.9 X10*3/uL (4.8-10.8)
[2022-09-26 03:44] LABS: Alanine Aminotransferase 18 U/L (0-31); Albumin Level 3.7 g/dL (3.5-5.0); Alkaline Phosphatase 74 U/L (39-117); Anion Gap 12 (12-20); Aspartate Amino Transferase 26 U/L (5-31); Bilirubin Total 0.4 mg/dL (0.0-1.0); Blood Urea Nitrogen 17 mg/dL (9-16); Carbon Dioxide 25 mmol/L (22-29); Chloride 108 mmol/L (96-108); Creatinine Clr Calc Pharmacy 55.5; Estimated Glomerular Filt Rate > 60; Glucose Random 95 mg/dL (60-115); Potassium 4.6 mmol/L (3.3-5.1); Sodium 140 mmol/L (135-145); Total Protein 7.2 g/dL (6.5-8.0)
--- NOTE | 2022-09-26 04:11 | PC.NURSE ---
Pt is asleep but frequently has erratic movements, kicking and convulsing for approx 5 seconds, then relaxing back to sleep. Pt stated it was too hot and keeps ripping blankets and david off. I put a fan in pt's room to try to cool her down. Pt condition remains unchanged. Pt is unable to stay still long enough to get CT scans at this time.
--- NOTE | 2022-09-26 04:56 | PC.NURSE ---
Pt continuing to have jerking motions. Dr Quinonez aware, ordered more medication PO. Pt initially sat up and said she would take PO medication. Pt laid back down and fell asleep again. Since then, staff has had a difficult time waking pt up. She will wake up for several seconds but struggles to follow instruction and was unable to take PO medications. Pt still moving her body uncontrollably. SONNY del cid, aware. O2 noted to be in low 90's. Pt has been placed on the hospital monitor, CO2 monitoring, and O2 monitoring. Pt placed on [address] Quinonez ordering CT scan and ABG.
[2022-09-26 05:12] LABS: Glucose, Whole Blood 105 mg/dL (60-115)
[2022-09-26] MEDS: Ketamine HCl 500 MG/5 ML VIAL 100 MG IM (05:15)
[2022-09-26 05:31] LABS: ABG Base Excess 0.5 mmol/L; ABG HCO3 24 mmol/L (22-26); ABG pCO2 38 mmHg (32-45); ABG pH 7.41 (7.35-7.45); ABG pO2 103 mmHg (83-108)
--- NOTE | 2022-09-26 05:50 | PC.NURSE ---
Pt was medicated with Ketamine IM in order to obtain necessary testing. Pt has become less restless, but still twitchy. Pt vital signs stable at this time. CT, X-Ray, UA, BOB, ABG, and ammonia obtained. Pt tolerated straight catheterization well, voiding approx 150mL of clear, yellow urine.
[2022-09-26 05:57] LABS: Appearance Urine Clear; Color Urine Yellow; Glucose Urine UA Negative (Negative); Leukocyte Esterase Urine Negative (Negative); Nitrite Urine Negative (Negative); PH 5.5 (5.0-9.0); Urine Blood Negative (Negative); Urine Ketones Negative (Negative); Urine Protein Negative (Neg-Trace)
[2022-09-26 06:02] LABS: Ammonia 34 umol/L (13-55)
[2022-09-26 06:04] LABS: Ethanol < 10 mg/dL
[2022-09-26 06:06] LABS: Amphetamine Screen Urine Not Detected (Not Detect); Barbiturates, Urine Not Detected (Not Detect); Benzodiazepines Screen Urine Not Detected (Not Detect); Cannabinoid Screen Urine Not Detected (Not Detect); Cocaine Screen Urine Not Detected (Not Detect); Opiate Screen Urine Not Detected (Not Detect); Phencyclidine Screen Urine Not Detected (Not Detect)
[2022-09-26] MEDS: LORazepam 2 MG/ML VIAL 1 MG IVPUSH (06:28)
[2022-09-26] MEDS: dilTIAZem HCL 50 MG/10 ML VIAL 10 MG IVPUSH (06:29)
[2022-09-26] MEDS: Haloperidol Lactate 5 MG/ML VIAL 2 MG IVPUSH (06:29)
--- NOTE | 2022-09-26 06:33 | PC.NURSE ---
Pt remained restless, grunting, kicking, and thrashing in the bed. While pt was chemically restrained, I placed a 20g IV in the left forearm and secured it. Dr Quinonez ordered IV medications which were administered per APR. Pt is now in bed, asleep and calm. Pt O2 noted to be low, as pt is mouth-breathing, so I placed her on an oximask at 5 LPM. Pt O2 improved to 92%. Pt respositioned in bed, clothes and bed are clean and dry, pt attached to monitor at this time.
--- NOTE | 2022-09-26 07:17 | PM.IMHP ---
History of Present Illness Date of Service: 09/26/22 Chief Complaint: Falls 77 old female with history Fibromyalgia take tramadol, AFib anticoagulated with Xarelto, non insulin-dependent diabetes, HTN, HLD, hypothyroidism, restless leg syndrome, asthma, frequent falls who presents to ED with yet another fall. She was at her freind's kitchen when she fell unsteady on her feet then fell, there was no LOC, no dizziness, or chest. She did strike her head but CT head is negative, no joint injuries. She is frequent seen in ED for falls, most recently on 09/07 and 09/13 and multiple other occasions before that. In the ED found to be in AFIB with RVR with heart rate over 130 and given IV cardizem. She was further noted to be very agiated, restless, thrashing all over the place and was given haldol, ketamine and Ativan. Tox screen is positive for Fentanyl Review of Systems Review of Systems: Yes Unobtainable due to mental status [facility] Medical History (Updated 09/26/22 @ 07:21 by Eric Davis MD) Addiction, opium Arthritis Autoimmune thyroiditis CHF (congestive heart failure) Depression with anxiety Diabetes type 2, uncontrolled Dyslipidemia Essential hypertension Hypothyroidism (acquired) Obesity (BMI 30-39.9) Osteopenia Overweight (BMI 25.0-29.9) Permanent atrial fibrillation Restless leg syndrome Vitamin D deficiency Family History Father Diabetes Mother No problems noted. Son Substance use disorder Surgical History History of radical hysterectomy Hx of arthroscopy of knee Hx of cataract surgery Social History Household Members: None Housing: Condominium Do you presently have visiting nurse or other home services: Yes Unable to assess alcohol history related to: Unable to respond Alcohol intake: never Patient Tobacco Use Status: Former Tobacco user Smoked in Last 30 Days: No e-Cigarette/Vaping Use: Never Used Second Hand Smoke Exposure: No Use of substances other than those prescribed or required for medical reasons: No Advance Directives: Yes Advance Directives on File: Yes Advance Directives Date on File: 07/30/22 service: No Current occupational status: retired Meds Allergies Allergy/AdvReac Type Severity Reaction Status Date / Time aspirin [ASPIRIN] Allergy Severe ANAPHYLAXIS Verified 09/21/22 14:02 Seasonal Allergies Allergy Intermediate asthma, Verified 09/21/22 14:02 itch, rash Home Medications Medication Instructions Recorded Confirmed Last Taken Type blood sugar diagnostic #10 ea 11/23/19 09/02/22 Unknown History montelukast 10 mg tablet 10 mg PO BEDTIME 11/23/19 09/26/22 07/23/22 History ezetimibe 10 mg tablet 10 mg PO DAILY 06/17/22 09/26/22 07/23/22 History rivaroxaban 20 mg tablet (Xarelto) 20 mg PO DAILY@1800 06/17/22 09/26/22 07/23/22 History albuterol sulfate 90 mcg/actuation 2 puff inhalation Q4-6H PRN dyspnea 07/24/22 09/26/22 07/23/22 History aerosol inhaler (Ventolin HFA) clonazepam 0.125 mg disintegrating 0.125 - 0.25 mg PO BEDTIME PRN 07/24/22 09/26/22 Unknown History tablet Restless Leg(S) levothyroxine 137 mcg tablet 137 mcg PO DAILY@0600 07/24/22 09/26/22 07/23/22 History omeprazole 20 mg capsule,delayed 20 mg PO DAILY@0630 07/24/22 09/26/22 07/23/22 History release diltiazem HCl 120 mg 120 mg PO DAILY 09/14/22 09/26/22 Unknown History capsule,extended release 24 hr gabapentin 300 mg capsule 300 mg PO QD-BID 09/14/22 09/26/22 Unknown History mirabegron 25 mg tablet,extended 25 mg PO BEDTIME 09/14/22 09/26/22 Unknown History release 24 hr (Myrbetriq) rosuvastatin 5 mg tablet 5 mg PO BEDTIME 09/14/22 09/26/22 Unknown History sitagliptin phosphate 100 mg 100 mg PO QAM 09/14/22 09/26/22 Unknown History tablet (Januvia) diltiazem HCl 60 mg 60 mg PO QAM 09/26/22 Unknown History capsule,extended release 12 hr lidocaine 5 % topical patch 1 patch topical DAILY PRN Pain 09/26/22 09/26/22 Unknown History methylcellulose (laxative) 500 mg 500 mg PO DAILY 09/26/22 09/26/22 Unknown History tablet (Fiber Laxative (methylcellulose)) pregabalin 75 mg capsule 75 mg PO BID 09/26/22 09/26/22 Unknown History tramadol 50 mg tablet 50 mg PO Q12H PRN severe pain 09/26/22 09/26/22 Unknown History Physical Exam Vital Signs and Narrative: Vital Signs: Last Vital Signs Temp 97.7 F 09/26/22 01:46 Pulse 134 H 09/26/22 06:00 Resp 18 09/26/22 06:00 BP 154/99 H 09/26/22 06:00 Pulse Ox 96 09/26/22 06:00 O2 Del Method Nasal Cannula 09/26/22 06:00 O2 Flow Rate 1 09/26/22 06:00 BMI result Body Mass Index 28.9 Const: Other: Constitutional: Very somnolent but arousable with effort Mental Status: Not able to assess Eyes: Pupils are equal, round and reactive to light. Ear, Nose and Throat: Oropharynx clear, mucous membranes moist. Ears and nose without deformity Respiratory: Clear to auscultation. No wheezing, rales or rhonchi. Cardiovascular: S1 S2 iregular iregular. No murmurs, rubs or gallops. Gastrointestinal: Abdomen soft, non-tender, non-distended. Normal bowel sounds.? Neurologic: Cranial nerves II-XII grossly intact. No focal neurological deficits. Moves all extremities spontaneously.? Skin: No rashes or lesions.? Musculoskeletal: No cyanosis or clubbing. Psychiatric: not able to assess Results Labs 09/26/22 03:23 09/26/22 03:23 Labs: Laboratory Results - last 24 hr 09/26/22 09/26/22 09/26/22 03:23 03:23 05:08 MCV 87.7 MCH 28.4 MCHC 32.4 RDW 14.0 Plt Count 291 MPV 10.1 Immature Gran % (Auto) 0.3 Neut % (Auto) 61.0 Lymph % (Auto) 27.5 [place] % (Auto) 9.0 Eos % (Auto) 1.5 Baso % (Auto) 0.7 Lymph # (Auto) 2.7 [place] # (Auto) 0.9 Eos # (Auto) 0.2 Baso # (Auto) 0.1 Abs Immat Gran (auto) 0.03 Absolute Neuts (auto) 6.0 Absolute Nucleated RBC 0.000 Nucleated RBC % (auto) 0.0 O2 Saturation ABG pH at Pt Temp ABG pCO2 at Pt Temp ABG pO2 at Pt Temp ABG HCO3 ABG Base Excess (Actual) Anion Gap 12 Estim Creat Clear Calc 55.5 Estimated GFR > 60 POC Glucose 105 Random Glucose 95 Calcium 9.0 Total Bilirubin 0.4 AST 26 ALT 18 Alkaline Phosphatase 74 Ammonia Total Protein 7.2 Albumin 3.7 Urine Color Urine Appearance Urine pH Ur Specific [place] Urine Protein Urine Glucose (UA) Urine Ketones Urine Blood Urine Nitrite Ur Leukocyte Esterase Urine Opiates Screen Urine Fentanyl Screen Ur Barbiturates Screen Ur Phencyclidine Scrn Ur Amphetamines Screen U Benzodiazepines Scrn Urine Cocaine Screen U Marijuana (THC) Screen Ethyl Alcohol < 10 09/26/22 09/26/22 09/26/22 05:26 05:50 05:50 MCV MCH MCHC RDW Plt Count MPV Immature Gran % (Auto) Neut % (Auto) Lymph % (Auto) [place] % (Auto) Eos % (Auto) Baso % (Auto) Lymph # (Auto) [place] # (Auto) Eos # (Auto) Baso # (Auto) Abs Immat Gran (auto) Absolute Neuts (auto) Absolute Nucleated RBC Nucleated RBC % (auto) O2 Saturation 98.0 ABG pH at Pt Temp 7.41 ABG pCO2 at Pt Temp 38 ABG pO2 at Pt Temp 103 ABG HCO3 24 ABG Base Excess (Actual) 0.5 Anion Gap Estim Creat Clear Calc Estimated GFR POC Glucose Random Glucose Calcium Total Bilirubin AST ALT Alkaline Phosphatase Ammonia 34 Total Protein Albumin Urine Color Urine Appearance Urine pH Ur Specific [place] Urine Protein Urine Glucose (UA) Urine Ketones Urine Blood Urine Nitrite Ur Leukocyte Esterase Urine Opiates Screen Not Detected Urine Fentanyl Screen POSITIVE H Ur Barbiturates Screen Not Detected Ur Phencyclidine Scrn Not Detected Ur Amphetamines Screen Not Detected U Benzodiazepines Scrn Not Detected Urine Cocaine Screen Not Detected U Marijuana (THC) Screen Not Detected Ethyl Alcohol 09/26/22 05:50 MCV MCH MCHC RDW Plt Count MPV Immature Gran % (Auto) Neut % (Auto) Lymph % (Auto) [place] % (Auto) Eos % (Auto) Baso % (Auto) Lymph # (Auto) [place] # (Auto) Eos # (Auto) Baso # (Auto) Abs Immat Gran (auto) Absolute Neuts (auto) Absolute Nucleated RBC Nucleated RBC % (auto) O2 Saturation ABG pH at Pt Temp ABG pCO2 at Pt Temp ABG pO2 at Pt Temp ABG HCO3 ABG Base Excess (Actual) Anion Gap Estim Creat Clear Calc Estimated GFR POC Glucose Random Glucose Calcium Total Bilirubin AST ALT Alkaline Phosphatase Ammonia Total Protein Albumin Urine Color Yellow Urine Appearance Clear Urine pH 5.5 Ur Specific Sanders 1.020 Urine Protein Negative Urine Glucose (UA) Negative Urine Ketones Negative Urine Blood Negative Urine Nitrite Negative Ur Leukocyte Esterase Negative Urine Opiates Screen Urine Fentanyl Screen Ur Barbiturates Screen Ur Phencyclidine Scrn Ur Amphetamines Screen U Benzodiazepines Scrn Urine Cocaine Screen U Marijuana (THC) Screen Ethyl Alcohol Imaging Radiologist's Impressions: Impressions Chest X-Ray 09/26/22 05:30 IMPRESSION: No dense consolidation. Bronchial wall thickening can be seen with a small airways process such as asthma or atypical/viral infection. Cervical Spine CT 09/26/22 05:43 IMPRESSION: Motion limited study. 1. No acute intracranial finding. 2. No acute fracture or malalignment of the cervical spine. Mild degenerative changes. Head CT 09/26/22 05:43 IMPRESSION: Motion limited study. 1. No acute intracranial finding. 2. No acute fracture or malalignment of the cervical spine. Mild degenerative changes. Assessment and Plan (1) Atrial fibrillation with rapid ventricular response: Status: Acute (2) Frequent falls: Status: Acute (3) Permanent atrial fibrillation: Status: Acute Plan 77 old female with a PMH significant for AFib on Xarelto, non insulin-dependent diabetes, HTN, HLD, hypothyroidism, restless leg syndrome, asthma, here with frequent falls, AFIB with RVR and metablic encephalopathy Permanent AFIB with RVR--IV med such as cardizem or metoprolol to control rate until she's able to take oral meds, resume Xarelto as soon as possible Encephalopathy--Dif Drug related, seizure, infectious. Ammonia level is normal, if fever might need LP, get ABG Falls likely related to restless leg, PT eval tomorrow confusion metabolic encephalopathy, etiology unclear ? related to meds, fentanyl positive HTN--resume [id number] diabetes type 2, hold meds, sliding scale HLD--continue statin COPD Not in acute exacerbation Continue home inhalers Full Code DVT Prophylaxis:? On Xarelto Pt will require a hospitalization of at least two nights for treatment of?AFib with RVR with IV med Time Spent With Patient Time: Total time managing care of this patient today ____ minutes. Quality Stroke Does the patient have a stroke diagnosis?: No VTE Prior VTE?: No VTE Risk Level:: Medical - moderate - high VTE Device Contraindication: Treatment Not Indicated VTE Drug Contraindication: N/A - Med Ordered
--- NOTE | 2022-09-26 07:36 | ECG_ITS ---
Test Reason : AFIB Blood Pressure : / mmHG Vent. Rate : 124 BPM Atrial Rate : 129 BPM P-R Int : 192 ms QRS Dur : 070 ms QT Int : 274 ms P-R-T Axes : 086 066 064 degrees QTc Int : 393 ms Atrial fibrillation with rapid ventricular response Abnormal ECG When compared with ECG of 13-SEP-2022 18:31, Vent. rate has increased BY 41 BPM Referred By: Larry Simmons Electronically Signed By:ARIAN MACIAS
--- NOTE | 2022-09-26 08:20 | PC.NURSE ---
assumed care of pt at 0700. pt sleeping on stretcher in no apparent distress. on bedside cardiac monitor technician and 5L O2 via oxymask sating 100%. seizure precautions in place and curtain open for pt safety. all pt needs met conrado
--- NOTE | 2022-09-26 09:32 | PHA.MEDREC ---
Pharmacy Consult ? Medication Reconciliation Pharmacy has completed the medication reconciliation. unable to speak with patient or primary contact (left voicemail). Used claim history and medical record. Patient recently had an office visit here on 09/21/22. Per note, she had a few medications get discontinued: Advair, metformin, losartan, and calcium citrate with vitamin D. She was also put on Linzess during same visit however there is no claim history so I'm not sure if patient started taking it. Claim history shows a recent one time supply for diltiazem 60mg and unsure if this is being added onto the 120mg. Unsure if patient is taking lasix 20mg. Last fill for 30 DS was on 07/23/22.
[2022-09-26] MEDS: dilTIAZem HCL 125 MG in 0.9 % Sodium Chloride 100 ML IVCONT ×2 (11:08→12:57)
[2022-09-26] MEDS: Midazolam HCl/PF 2 MG/2 ML VIAL 5 MG IVPUSH (11:33)
--- NOTE | 2022-09-26 11:37 | PC.NURSE ---
pt noted to be tachycardic and thrashing on stretcher. pinpoint pupils, reactive to painful stimuli, unable to respond to questions. hospitalist and votator machine operator at bedside, verbal order for 5mg IV push versed given. abg obtained. pt less agitated at this time s/p versed.
[2022-09-26 11:39] LABS: ABG Base Excess 1.4 mmol/L; ABG HCO3 25 mmol/L (22-26); ABG pCO2 40 mmHg (32-45); ABG pH 7.41 (7.35-7.45); ABG pO2 72 mmHg (83-108)
[2022-09-26] MEDS: levETIRAcetam 1,000 MG in 0.9 % Sodium Chloride 100 ML 430 MG IV (11:42)
--- NOTE | 2022-09-26 12:07 | PC.NURSE ---
pt noted to have hr ranging from 130s to 170s. Dr. Davis notified and pt started on cardizem drip per apr. pt felt warm to touch, rectal temp checked and noted to be 100.1. pt was thrashing about the bed, foaming at the mouth, taking off O2. pt unresponsive to verbal stimuli, unarousable to sternal rub, pinpoint pupils unreactive to light. Dr. Davis called to bedside to evaluate pt. ordered more meds and medicated per apr. multiple staff at bedside to assist with pt, including Dr. Bo. a second 20G IV placed to the RAC and secured with gauze bandage. blood cultures drawn and sent to lab. pt's sister called and spoke with this RN (listed as secondary contact). stated pt has 10 year hx of fibromyalgia and takes tramadol for pain. pt's sister sts that pt has these episodes of thrashing about the bed and taking clothes off every night which leads to the pt falling. pt sister also discussed that the pt has SHORT PIECE HAND[employer]ER named Jo for additional information, left number with this RN. Jo (Icelandic Speaking only): [phone]
[2022-09-26] MEDS: cefTRIAXone sodium 1 GM in 0.9 % Sodium Chloride 50 ML IV (12:38)
--- NOTE | 2022-09-26 12:38 | W.PM.CCCN ---
History of Present Illness Data of Consult Service Date: 09/26/22 Requesting physician: [facility] Primary Care Provider: Unknown Physician HPI Reason for consult: Agitated delirium 77-year-old moderately obese type 2 diabetic female with persistent atrial fibrillation who was brought in by ambulance yesterday did apparently due to a fall of which she has had many and because of previous incidences of altered mental status has had recent spinal tap with a normal CSF but also carries a history of autoimmune thyroiditis and currently on thyroid replacement with a normal TSH but I was called to see her because she has got a low-grade temperature and she was presenting with an agitated delirium and with a repetitive thrashing behavior on the bed certainly not appearing to be conscious but you could break the cycle very quick quickly by by a loud calling of her name she would open her eyes no persistent eye contact no ability to answer questions and would revert to the same behavioral issue which stent considerably calmed on 5 mg of IV Versed making me think that this repetitive behavior could have represented seizure activity and we wanted to again repeat CSF profile but we are unable because she is on Xarelto which clearly preclude so instead we are culturing her completely treating her empirically with vancomycin and ceftriaxone and probably adding acyclovir and will at least wait for an additional 24 and potentially even wait until Tuesday may be beyond 36 hours to be secure that there will not be any paraspinal bleeding obviously I will get a cyst screening sed rate because of the autoimmune history she has witnessed snoring with brief apneic periods probably has an obstructive sleep apnea and all of that is easily remedied by bringing the drawn anteriorly but she is maintaining perfectly stable vital signs and on a moderate IV Cardizem drip her heart rates are now controlled at 10 milligrams/hour but when she had the behavioral abnormality her rate was in the 160s and she clearly had significant expiratory wheeze at which point I did a bedside echo on her demonstrating globally normal systolic wall motion of the left ventricle and hyperdynamic if anything right ventricle not distended either and no primary valve or pericardial disease noted just a little bit of right atrial dilatation and may be moderately severe tricuspid insufficiency I did not palpate any lymphadenopathy and comb the skin the see if there any bites or lesions cellulitic issues etc. and there was nothing Review of Systems Review of Systems: Yes Unobtainable due to mental status PMFSH Past Medical History Medical History (Updated 09/26/22 @ 15:25 by Mark Bo MD) Addiction, opium Arthritis Autoimmune thyroiditis CHF (congestive heart failure) Depression with anxiety Diabetes type 2, uncontrolled Dyslipidemia Essential hypertension Hypothyroidism (acquired) Obesity (BMI 30-39.9) Osteopenia Overweight (BMI 25.0-29.9) Permanent atrial fibrillation Restless leg syndrome Vitamin D deficiency Family History Family History Father Diabetes Mother No problems noted. Son Substance use disorder Surgical History Surgical History History of radical hysterectomy Hx of arthroscopy of knee Hx of cataract surgery Social History Social History Household Members: None [facility] Do you presently have visiting nurse or other home services: Yes Unable to assess alcohol history related to: Unable to respond Alcohol intake: never Patient Tobacco Use Status: Former Tobacco user Smoked in Last 30 Days: No e-Cigarette/Vaping Use: Never Used Second Hand Smoke Exposure: No Use of substances other than those prescribed or required for medical reasons: No Advance Directives: Yes Advance Directives on File: Yes Advance Directives Date on File: 07/30/22 service: No Current occupational status: retired Meds Allergies Allergy/AdvReac Type Severity Reaction Status Date / Time aspirin [ASPIRIN] Allergy Severe ANAPHYLAXIS Verified 09/21/22 14:02 Seasonal Allergies Allergy Intermediate asthma, Verified 09/21/22 14:02 itch, rash Active Medications: Current Medications Albuterol Sulfate (Albuterol Sulfate 90 Mcg 8 Gm Inhaler) 2 puff INHALE Q4H PRN PRN Reason: dyspnea Atorvastatin Calcium (Atorvastatin Calcium 20 Mg Tablet) 20 mg PO BEDTIME [facility] Bisoprolol Fumarate (Bisoprolol Fumarate 5 Mg Tablet) 5 mg PO DAILY [facility] Diltiazem HCl (Diltiazem Hcl Cd 120 Mg Cap.Er.Deg) 120 mg PO DAILY RAMESH; Protocol Ezetimibe (Ezetimibe 10 Mg Tablet) 10 mg PO DAILY [facility] Diltiazem HCl 125 mg/ Sodium (Chloride) 125 mls @ 0 mls/hr IVCONT .Q0M RAMESH; Protocol Last Admin: 09/26/22 11:08 Dose: 5 mg/hr, 5 mls/hr Ceftriaxone Sodium 1 gm/ (Sodium Chloride) 50 mls @ 100 mls/hr IV Q24H [facility] Vancomycin HCl 1,000 mg/Vancomycin HCl 750 mg/ Sodium Chloride 535 mls @ 267.5 mls/hr IV ONCE ONE Stop: 09/26/22 14:59 Levothyroxine Sodium 112 mcg/ (Levothyroxine Sodium 25 mcg) 137 mcg PO DAILY@0600 [facility] Lidocaine (Lidocaine 4 % Patch Adh..Patch) 1 patch TRANSDERMA DAILY PRN PRN Reason: Pain Magnesium Hydroxide (Milk Of Magnesia 30 Ml Oral.Susp) 30 ml PO DAILY PRN PRN Reason: Constipation Melatonin (Melatonin 3 Mg Tablet) 3 mg PO BEDTIME PRN PRN Reason: Insomnia Mirabegron (Mirabegron 25 Mg Tab.Er.24h) 25 mg PO BEDTIME [facility] Montelukast Sodium (Montelukast Sodium 10 Mg Tablet) 10 mg PO BEDTIME [facility] Omeprazole (Omeprazole 20 Mg Capsule.Dr) 20 mg PO DAILY@0630 [facility] Pharmacy Consult (Consult Rx Vancomycin Dosing) 1 each MISCELLANE DAILY PRN PRN Reason: Consult order Pregabalin (Pregabalin 75 Mg Capsule) 75 mg PO BID [facility] Rivaroxaban (Rivaroxaban 20 Mg Tablet) 20 mg PO DAILY@1800 [facility] Sitagliptin Phosphate (Sitagliptin Phosphate 100 Mg Tablet) 100 mg PO DAILY [facility] Last Admin: 09/26/22 11:16 Dose: Not Given Sodium Chloride (0.9 % Sodium Chloride Flush 3 Ml Syringe) 3 ml IVFLUSH QSHIFT [facility] Sucralfate (Sucralfate Oral Suspension 1 Gm/10 Ml Oral.Susp) 1 gm PO BEDTIME [facility] Vitamin D (Cholecalciferol (Vitamin D3) 25 Mcg Tablet) 50 mcg PO DAILY [facility] Home Medications Medication Instructions Recorded Confirmed Last Taken Type blood sugar diagnostic #10 ea 11/23/19 09/02/22 Unknown History montelukast 10 mg tablet 10 mg PO BEDTIME 11/23/19 09/26/22 07/23/22 History ezetimibe 10 mg tablet 10 mg PO DAILY 06/17/22 09/26/22 07/23/22 History rivaroxaban 20 mg tablet (Xarelto) 20 mg PO DAILY@1800 06/17/22 09/26/22 07/23/22 History albuterol sulfate 90 mcg/actuation 2 puff inhalation Q4-6H PRN dyspnea 07/24/22 09/26/22 07/23/22 History aerosol inhaler (Ventolin HFA) clonazepam 0.125 mg disintegrating 0.125 - 0.25 mg PO BEDTIME PRN 07/24/22 09/26/22 Unknown History tablet Restless Leg(S) levothyroxine 137 mcg tablet 137 mcg PO DAILY@0600 07/24/22 09/26/22 07/23/22 History omeprazole 20 mg capsule,delayed 20 mg PO DAILY@0630 07/24/22 09/26/22 07/23/22 History release diltiazem HCl 120 mg 120 mg PO DAILY 09/14/22 09/26/22 Unknown History capsule,extended release 24 hr gabapentin 300 mg capsule 300 mg PO QD-BID 09/14/22 09/26/22 Unknown History mirabegron 25 mg tablet,extended 25 mg PO BEDTIME 09/14/22 09/26/22 Unknown History release 24 hr (Myrbetriq) rosuvastatin 5 mg tablet 5 mg PO BEDTIME 09/14/22 09/26/22 Unknown History sitagliptin phosphate 100 mg 100 mg PO QAM 09/14/22 09/26/22 Unknown History tablet (Januvia) diltiazem HCl 60 mg 60 mg PO QAM 09/26/22 Unknown History capsule,extended release 12 hr lidocaine 5 % topical patch 1 patch topical DAILY PRN Pain 09/26/22 09/26/22 Unknown History methylcellulose (laxative) 500 mg 500 mg PO DAILY 09/26/22 09/26/22 Unknown History tablet (Fiber Laxative (methylcellulose)) pregabalin 75 mg capsule 75 mg PO BID 09/26/22 09/26/22 Unknown History tramadol 50 mg tablet 50 mg PO Q12H PRN severe pain 09/26/22 09/26/22 Unknown History Physical Exam Vital Signs: Vital Signs: Last Vital Signs Temp 97.7 F 09/26/22 10:32 Pulse 118 H 09/26/22 10:32 Resp 15 09/26/22 10:32 BP 152/87 H 09/26/22 10:32 Pulse Ox 100 09/26/22 10:32 O2 Del Method Nasal Cannula 09/26/22 10:32 O2 Flow Rate 4 09/26/22 10:32 BMI result Body Mass Index 28.9 vital signs are per our perfectly stable skin negative and no lymphadenopathy moves all 4 extremities and currently not having any more of that repetitive behavioral issue but if anything remains somnolent which of course makes me wonder about the possibility of underlying nonconvulsive status epilepticus and will given a short period of time before potentially enhancing any anti seizure medication but I did empirically give her 1 g of IV Keppra and at the very least will maintain that on a q.12 hourly basis abdomen is soft no organomegaly lungs definitely bilateral expiratory wheezing but no other adventitious sounds cardiac exam is okay by bedside echo as described above Results Labs 09/26/22 03:23 09/26/22 03:23 Labs: Short CBC 09/26/22 Range/Units 03:23 WBC 9.9 (4.8-10.8) X10*3/uL Hgb 12.0 (12.0-16.0) g/dl Hct 37.0 (37.0-47.0) % Plt Count 291 (160-400) X10*3/uL BMP 09/26/22 03:23 Sodium 140 Potassium 4.6 D Chloride 108 Carbon Dioxide 25 BUN 17 H Creatinine 0.78 Calcium 9.0 Liver Function 09/26/22 Range/Units 03:23 Total Bilirubin 0.4 (0.0-1.0) mg/dL AST 26 (5-31) U/L ALT 18 (0-31) U/L Alkaline Phosphatase 74 (39-117) U/L Albumin 3.7 (3.5-5.0) g/dL Urine 09/26/22 Range/Units 05:50 Urine Color Yellow Urine Appearance Clear Urine pH 5.5 (5.0-9.0) Ur Specific [place] 1.020 (1.005-1.025) Urine Protein Negative (Neg-Trace) mg/dL Urine Glucose (UA) Negative (Negative) mg/dL Assessment and Plan (1) Permanent atrial fibrillation: Status: Acute (2) Atrial fibrillation with rapid ventricular response: Status: Acute (3) Frequent falls: Status: Acute (4) Abnormal nuclear stress test: Status: Acute (5) Toxic metabolic encephalopathy: Status: Acute (6) Hypertension: Status: Acute (7) Diabetes: Qualifiers: Diabetes mellitus type: type 2 Diabetes mellitus nursing home insulin use: unspecified long term care phlebotomist insulin use status Diabetes mellitus complication status: with diabetic arthropathy Diabetes mellitus complication detail: with other arthropathy Qualified Code(s): E11.618 - Type 2 diabetes mellitus with other diabetic arthropathy Status: Acute (8) DM2 (diabetes mellitus, type 2): Qualifiers: Diabetes mellitus nursing home insulin use: without long term care phlebotomist use Diabetes mellitus complication status: without complication Qualified Code(s): E11.9 - Type 2 diabetes mellitus without complications Status: Acute (9) Autoimmune thyroiditis: Status: Acute (10) Addiction, opium: Status: Acute (11) Hypothyroidism (acquired): Status: Acute (12) Seizures, generalized convulsive: Status: Acute Plan so for now I empiric treatment with vancomycin and ceftriaxone and acyclovir in this otherwise moderately obese type 2 diabetic and hypertensive female with persistent atrial fibrillation she is on Xarelto which hopefully will reduce the likelihood if she has been taking it reliably of there being an embolic issue but because of this we cannot do a spinal tap so will continue empiric therapy potentially on Tuesday spinal tap after family permission and right now we will keep the antiseizure medication going but may need to potentially 1st increased dose of the Keppra empirically if she does not awaken making the safe clinical assumption of a persistent nonconvulsive status epilepticus and that not being helpful will empirically add a 2nd medication I am fortunately have no way of proving or disprove Ng seizure activity but we will in the morning get a an EEG Time Spent With Patient Time: Total time managing care of this patient today _90___ minutes.
[2022-09-26 13:01] LABS: Fentanyl, urine SEE COMMENTS (Not Detect)
[2022-09-26 13:44] LABS: TSH reflex Free T4 2.85 uIU/mL (0.32-4.0); Thyroid Stimulating Hormone 2.85 uIU/mL (0.32-4.0)
[2022-09-26] MEDS: vancomycin HCL 1,000 MG, vancomycin HCL 750 MG in 0.9 % Sodium Chloride 500 ML 267.5 MG IV (13:54)
[2022-09-26] MEDS: 0.9 % Sodium Chloride Flush 3 ML SYRINGE IVFLUSH ×2 (16:10→23:29)
[2022-09-26 16:29] LABS: Glucose, Whole Blood 90 mg/dL (60-115)
[2022-09-26] MEDS: dexmedeTOMIDidine HCL/NS 400 MCG/100 ML INFUS..BTL 17.35 MCG IVCONT ×2 (16:36→20:25)
[2022-09-26 16:59] LABS: Erythrocyte Sedimentation Rate 9 MM/HR (0-20)
[2022-09-26 17:18] LABS: Appearance Urine Clear; Color Urine Yellow; Glucose Urine UA Negative (Negative); Leukocyte Esterase Urine Negative (Negative); Nitrite Urine Negative (Negative); Specific Gravity - Urine 1.015 (1.005-1.025); UMIC TRIGGER UACC YES; Urine Blood Moderate (2+) (Negative); Urine Ketones Negative (Negative); Urine Protein Trace mg/dL (Neg-Trace)
[2022-09-26 17:22] LABS: Bacteria Urine None Seen (None Seen); Hyaline Casts Urine 0-2 /LPF (0-2); RBC Urine >20 /HPF (0-2); WBC Urine 0-5 /HPF (0-5)
[2022-09-26 18:22] LABS: ABG Refer to POC result
[2022-09-26 18:50] LABS: Glucose, Whole Blood 115 mg/dL (60-115)
[2022-09-26] MEDS: Acetaminophen Supp 650 MG SUPP.RECT PR (22:19)
[2022-09-26] MEDS: levETIRAcetam in NaCl (iso-os) 1,000 MG/100 ML PIGGYBACK 400 MG IV (22:26)
[2022-09-26 23:52] LABS: Glucose, Whole Blood 115 mg/dL (60-115)
[2022-09-27] VITALS (23 sets, daily range): BP systolic 104–151; BP diastolic 45–78; PULSE 60–105; RESP 10–27; TEMP 35.6–38; O2SAT 93–98; BMI 31.7
--- NOTE | 2022-09-27 | EEG_ITS ---
FINDINGS: The background activity consists of a low-voltage 4 to 5 hertz diffuse theta slowing intermixed with muscle artifact. Photic stimulation is without activation. Hyperventilation was omitted. IMPRESSION: This is an abnormal EEG due to diffuse background slowing consistent with diffuse encephalopathic process. No epileptiform discharges were seen. MD YOSSI De Dios/GERALD / [id number]
[2022-09-27] MEDS: dexmedeTOMIDidine HCL/NS 400 MCG/100 ML INFUS..BTL 17.35 MCG IVCONT ×2 (01:53→06:02)
[2022-09-27 04:30] LABS: VBG Base Excess 0.5 mmol/L; VBG HCO3 22 mmol/L (22-26); VBG pCO2 27 mmHg; VBG pH 7.51 (7.32-7.43); VBG pO2 123 mmHg
[2022-09-27 04:31] LABS: MANUAL DIFF FLAG NO
[2022-09-27 04:31] LABS: Venous Blood Gas Refer to POC result
[2022-09-27 04:32] LABS: Basophils Absolute Auto 0.1 X10*3/uL (0.0-0.2); Eosinophils Absolute Auto 0.1 X10*3/uL (0.0-0.4); Eosinophils Percent Auto 1.5 % (0-4); Hematocrit 35.5 % (37.0-47.0); Hemoglobin 11.6 g/dl (12.0-16.0); Imm Gran Abs Auto 0.02 X10*3/uL (0.00-0.03); Imm Gran Pct Auto 0.2 % (0.0-0.4); Lymphocytes Absolute Auto 1.9 X10*3/uL (1.2-4.9); Lymphocytes Percent Auto 21.2 % (20-40); Mean Corpuscular HGB Conc 32.7 g/dl (31.0-35.0); Mean Corpuscular Hemoglobin 28.6 pg (27.0-33.0); Mean Corpuscular Volume 87.7 fL (80.0-98.0); Mean Platelet Volume 10.5 fL (9.4-12.3); Monocytes Absolute Auto 0.7 X10*3/uL (0.1-1.2); Monocytes Percent Auto 7.8 % (2-11); Neutrophils Absolute Auto 6.1 x10*3/uL (2.0-8.3); Neutrophils Percent Auto 68.3 % (45-73); Platelet Count 257 X10*3/uL (160-400); Red Blood Count 4.05 X10*6/uL (4.20-5.50); Red Cell Distribution Width 13.7 % (11.0-16.0); White Blood Count 8.9 X10*3/uL (4.8-10.8)
[2022-09-27 04:48] LABS: Alanine Aminotransferase 17 U/L (0-31); Albumin Level 3.3 g/dL (3.5-5.0); Alkaline Phosphatase 74 U/L (39-117); Anion Gap 13 (12-20); Aspartate Amino Transferase 29 U/L (5-31); Bilirubin Total 0.9 mg/dL (0.0-1.0); Blood Urea Nitrogen 11 mg/dL (9-16); Carbon Dioxide 21 mmol/L (22-29); Chloride 109 mmol/L (96-108); Creatinine Clr Calc Pharmacy 60.1; Estimated Glomerular Filt Rate > 60; Glucose Random 130 mg/dL (60-115); Potassium 3.8 mmol/L (3.3-5.1); Sodium 139 mmol/L (135-145); Total Protein 6.6 g/dL (6.5-8.0)
[2022-09-27] MEDS: Dextrose 5 % and Lactated Ring 1,000 ML 50 ML IVCONT ×2 (04:59→23:31)
[2022-09-27] MEDS: Pantoprazole Sodium 40 MG/10 ML VIAL IVPUSH (05:20)
[2022-09-27 05:25] LABS: VBG Base Excess 0.8 mmol/L; VBG HCO3 23 mmol/L (22-26); VBG pCO2 30 mmHg; VBG pH 7.48 (7.32-7.43); VBG pO2 84 mmHg
[2022-09-27 05:26] LABS: Venous Blood Gas Refer to POC result
[2022-09-27 06:18] LABS: Prolactin 23.7 ng/mL
[2022-09-27 07:46] LABS: Glucose, Whole Blood 142 mg/dL (60-115)
[2022-09-27] MEDS: 0.9 % Sodium Chloride Flush 3 ML SYRINGE IVFLUSH (07:58)
[2022-09-27] MEDS: Levothyroxine Sodium 100 MCG/5 ML VIAL 70 MCG IVPUSH (08:12)
--- NOTE | 2022-09-27 08:24 | MHC.CM.PN ---
This insurance writer placed call to Primary contact and HCP noted in EMR- Leora, who is pt's VOCAL ARTIST. VOCAL ARTIST reports she has been away for 2 weeks and another VOCAL ARTIST has been helping patient in the home. Leora also notes that she DOES NOT want to be pt's HCP and DEFERS all medical decision making to pt's sister and alternate HCP Evelyne Wodos. VOCAL ARTIST is able to state pt lives @ home alone w/ VOCAL ARTIST support and VNA/PT/OT services, company unknown. PCP is @ [facility]. VOCAL ARTIST gets patient food, medications and transports to MD appts. Reports pt had been independent with ambulation but has recently been falling in the home. IMM Delivered.
[2022-09-27] MEDS: methylPREDNISolone Sod Succ 1,000 MG in 0.9 % Sodium Chloride 50 ML 66 MG IV (09:45)
[2022-09-27] MEDS: Thiamine HCL 100 MG in 0.9 % Sodium Chloride 100 ML 202 MG IV (09:55)
[2022-09-27 10:34] LABS: Folate 13.3 ng/mL (> or = 4.0); Vitamin B12 468 pg/mL (200-900)
[2022-09-27 10:38] LABS: Cortisol Random 7.7 ug/dL
[2022-09-27] MEDS: levETIRAcetam in NaCl (iso-os) 1,000 MG/100 ML PIGGYBACK 400 MG IV ×2 (10:38→23:18)
[2022-09-27] MEDS: cefTRIAXone sodium 1 GM in 0.9 % Sodium Chloride 50 ML IV (12:38)
--- NOTE | 2022-09-27 13:11 | PM.CCPN ---
Subjective Subjective Date of Service: 09/27/22 Interval History: 77-year-old female who I met yesterday in the emergency room was completely encephalopathic and highly agitated with the thrashing motions that she had being so repetitive along with the screaming and then of course a very good response with the Versed a made a clinical assumption that this could be seizure activity loaded her with Keppra which she is maintained on and then as she broke through later in the evening repeated the Versed and started dexmedetomidine and basically she had a very quiet comfortable night with 1 or 2 breakthroughs of of screaming however this time demonstrating a little bit more cognitive function able to be distracted make a little eye contact and although the speech was very dysarthric she still did respond and this it was an improvement in cognitive function and then she would immediately fall back asleep almost unarousable E EEG was done and we await interpretation and MR I with and without gadolinium is now pending looking to see if we have indicators of encephalitis which I am very suspicious of on an autoimmune basis because of the history of thyroid peroxidase antibody positivity in the in the past currently of course on Synthroid with a normal TSH because of bradycardia the dexmedetomidine had to be stopped rates falling into the 30s currently she has got a rate of 64 representing controlled atrial fibrillation without significant pauses and blood pressure is 154/77 with oxygen saturation of 96% and we recently gave her 1 pulse dose of methylprednisolone at 1 g Critical Care Time (minutes): 45 Physical Exam Vital Signs: Vital Signs: Last Vital Signs Temp 96.4 F L 09/27/22 11:00 Pulse 60 09/27/22 11:00 Resp 14 09/27/22 11:00 BP 151/71 H 09/27/22 11:00 Pulse Ox 97 09/27/22 11:00 O2 Del Method Room Air 09/27/22 11:00 O2 Flow Rate 2 09/26/22 18:00 BMI result Body Mass Index 31.7 vital signs are stable and the patient remains nonfocal neurologically still very lethargic but can arouse to loud voice can respond to simple questions but not following commands abdomen benign with no organomegaly lungs are clear without adventitious sounds and negative chest x-ray my bedside echo demonstrated normal LV and RV function with no primary valve or pericardial disease just some dilatation of both atria skin is intact with no cellulitis no breakdown no acrocyanosis Objective Data Labs 09/27/22 04:24 09/27/22 04:26 Labs: Laboratory Results - last 24 hr 09/26/22 09/26/22 09/26/22 12:43 12:43 12:43 WBC RBC Hgb Hct MCV MCH MCHC RDW Plt Count MPV Immature Gran % (Auto) Neut % (Auto) Lymph % (Auto) [place] % (Auto) Eos % (Auto) Baso % (Auto) Lymph # (Auto) [place] # (Auto) Eos # (Auto) Baso # (Auto) Abs Immat Gran (auto) Absolute Neuts (auto) Absolute Nucleated RBC Nucleated RBC % (auto) ESR VBG pH VBG pCO2 VBG pO2 VBG HCO3 VBG O2 Saturation VBG Base Excess Sodium Potassium Chloride Carbon Dioxide Anion Gap BUN Creatinine Estim Creat Clear Calc Estimated GFR POC Glucose Random Glucose Calcium Total Bilirubin AST ALT Alkaline Phosphatase Total Protein Albumin Vitamin B12 Folate TSH 2.85 Free T3 3.0 Prolactin 23.7 Random Cortisol Urine Color Urine Appearance Urine pH Ur Specific [place] Urine Protein Urine Glucose (UA) Urine Ketones Urine Blood Urine Nitrite Ur Leukocyte Esterase Urine RBC Urine WBC Ur Squamous Epith Cells Urine Bacteria Hyaline Casts 09/26/22 09/26/22 09/26/22 15:56 16:26 16:53 WBC RBC Hgb Hct MCV MCH MCHC RDW Plt Count MPV Immature Gran % (Auto) Neut % (Auto) Lymph % (Auto) [place] % (Auto) Eos % (Auto) Baso % (Auto) Lymph # (Auto) [place] # (Auto) Eos # (Auto) Baso # (Auto) Abs Immat Gran (auto) Absolute Neuts (auto) Absolute Nucleated RBC Nucleated RBC % (auto) ESR 9 VBG pH VBG pCO2 VBG pO2 VBG HCO3 VBG O2 Saturation VBG Base Excess Sodium Potassium Chloride Carbon Dioxide Anion Gap BUN Creatinine Estim Creat Clear Calc Estimated GFR POC Glucose 90 Random Glucose Calcium Total Bilirubin AST ALT Alkaline Phosphatase Total Protein Albumin Vitamin B12 Folate TSH Free T3 Prolactin Random Cortisol Urine Color Yellow Urine Appearance Clear Urine pH 6.0 Ur Specific [place] 1.015 Urine Protein Trace Urine Glucose (UA) Negative Urine Ketones Negative Urine Blood Moderate (2+) H Urine Nitrite Negative Ur Leukocyte Esterase Negative Urine RBC >20 H Urine WBC 0-5 Ur Squamous Epith Cells 3-5 Urine Bacteria None Seen Hyaline Casts 0-2 09/26/22 09/26/2209/27/23 18:46 23:47 04:24 WBC 8.9 RBC 4.05 L Hgb 11.6 L Hct 35.5 L MCV 87.7 MCH 28.6 MCHC 32.7 RDW 13.7 Plt Count 257 MPV 10.5 Immature Gran % (Auto) 0.2 Neut % (Auto) 68.3 Lymph % (Auto) 21.2 [place] % (Auto) 7.8 Eos % (Auto) 1.5 Baso % (Auto) 1.0 Lymph # (Auto) 1.9 [place] # (Auto) 0.7 Eos # (Auto) 0.1 Baso # (Auto) 0.1 Abs Immat Gran (auto) 0.02 Absolute Neuts (auto) 6.1 Absolute Nucleated RBC 0.000 Nucleated RBC % (auto) 0.0 ESR VBG pH VBG pCO2 VBG pO2 VBG HCO3 VBG O2 Saturation VBG Base Excess Sodium Potassium Chloride Carbon Dioxide Anion Gap BUN Creatinine Estim Creat Clear Calc Estimated GFR POC Glucose 115 115 Random Glucose Calcium Total Bilirubin AST ALT Alkaline Phosphatase Total Protein Albumin Vitamin B12 Folate TSH Free T3 Prolactin Random Cortisol Urine Color Urine Appearance Urine pH Ur Specific [place] Urine Protein Urine Glucose (UA) Urine Ketones Urine Blood Urine Nitrite Ur Leukocyte Esterase Urine RBC Urine WBC Ur Squamous Epith Cells Urine Bacteria Hyaline Casts 09/27/22 09/27/22 09/27/22 04:25 04:26 05:20 WBC RBC Hgb Hct MCV MCH MCHC RDW Plt Count MPV Immature Gran % (Auto) Neut % (Auto) Lymph % (Auto) [place] % (Auto) Eos % (Auto) Baso % (Auto) Lymph # (Auto) [place] # (Auto) Eos # (Auto) Baso # (Auto) Abs Immat Gran (auto) Absolute Neuts (auto) Absolute Nucleated RBC Nucleated RBC % (auto) ESR VBG pH 7.51 H 7.48 H VBG pCO2 27 30 VBG pO2 123 84 VBG HCO3 22 23 VBG O2 Saturation 99.0 98.0 VBG Base Excess 0.5 0.8 Sodium 139 Potassium 3.8 Chloride 109 H Carbon Dioxide 21 L Anion Gap 13 BUN 11 Creatinine 0.72 Estim Creat Clear Calc 60.1 Estimated GFR > 60 POC Glucose Random Glucose 130 H Calcium 9.0 Total Bilirubin 0.9 AST 29 ALT 17 Alkaline Phosphatase 74 Total Protein 6.6 Albumin 3.3 L Vitamin B12 Folate TSH Free T3 Prolactin Random Cortisol Urine Color Urine Appearance Urine pH Ur Specific [place] Urine Protein Urine Glucose (UA) Urine Ketones Urine Blood Urine Nitrite Ur Leukocyte Esterase Urine RBC Urine WBC Ur Squamous Epith Cells Urine Bacteria Hyaline Casts 09/27/22 09/27/22 09/27/22 07:43 08:53 08:53 WBC RBC Hgb Hct MCV MCH MCHC RDW Plt Count MPV Immature Gran % (Auto) Neut % (Auto) Lymph % (Auto) [place] % (Auto) Eos % (Auto) Baso % (Auto) Lymph # (Auto) [place] # (Auto) Eos # (Auto) Baso # (Auto) Abs Immat Gran (auto) Absolute Neuts (auto) Absolute Nucleated RBC Nucleated RBC % (auto) ESR VBG pH VBG pCO2 VBG pO2 VBG HCO3 VBG O2 Saturation VBG Base Excess Sodium Potassium Chloride Carbon Dioxide Anion Gap BUN Creatinine Estim Creat Clear Calc Estimated GFR POC Glucose 142 H Random Glucose Calcium Total Bilirubin AST ALT Alkaline Phosphatase Total Protein Albumin Vitamin B12 468 Folate 13.3 TSH Free T3 Prolactin Random Cortisol 7.7 Urine Color Urine Appearance Urine pH Ur Specific [place] Urine Protein Urine Glucose (UA) Urine Ketones Urine Blood Urine Nitrite Ur Leukocyte Esterase Urine RBC Urine WBC Ur Squamous Epith Cells Urine Bacteria Hyaline Casts Progress Note: A&P Assessment and plan (1) Seizures, generalized convulsive: Status: Acute (2) Permanent atrial fibrillation: Status: Acute (3) Atrial fibrillation with rapid ventricular response: Status: Acute (4) Frequent falls: Status: Acute (5) Toxic metabolic encephalopathy: Status: Acute (6) Hypertension: Status: Acute (7) Moderate persistent asthma: Status: Acute (8) Diabetes: Status: Acute (9) DM2 (diabetes mellitus, type 2): Status: Acute (10) Autoimmune thyroiditis: Status: Acute (11) Overweight (BMI 25.0-29.9): Status: Acute (12) Depression with anxiety: Status: Acute (13) Addiction, opium: Status: Acute (14) Hypothyroidism (acquired): Status: Acute Plan so at this point I do not know if we are currently in a postictal state or whether not we are dealing with a inflammatory versus infectious and encephalitis with with encephalopathy that seems to be improving and that we are noting some improvement in cognitive function today but now that we have ceftriaxone and vancomycin and acyclovir on board and because of the history of autoimmune thyroiditis some going to add pulse dose steroid as we await MRI with and without gadolinium and EEG interpretation Quality Stroke Does the patient have a stroke diagnosis?: No VTE Prior VTE?: No VTE Risk Level:: Medical - moderate - high VTE Device Contraindication: Treatment Not Indicated VTE Drug Contraindication: N/A - Med Ordered
[2022-09-27 13:44] LABS: Glucose, Whole Blood 151 mg/dL (60-115)
[2022-09-27] MEDS: vancomycin HCL 1,250 MG in 0.9 % Sodium Chloride 250 ML 166.67 MG IV (13:46)
[2022-09-27] MEDS: LORazepam 2 MG/ML VIAL 1 MG IVPUSH (14:35)
[2022-09-27] MEDS: gadobutroL 7.5 ML VIAL IVPUSH (16:33)
[2022-09-27] MEDS: fentaNYL citrate/PF 100 MCG/2 ML VIAL 50 MCG IVPUSH (17:27)
[2022-09-27] MEDS: Midazolam HCl/PF 2 MG/2 ML VIAL IVPUSH (17:29)
[2022-09-27 18:23] LABS: Glucose, Whole Blood 164 mg/dL (60-115)
[2022-09-27] MEDS: Ketorolac Tromethamine 15 MG/ML VIAL IVPUSH (20:41)
[2022-09-27] MEDS: QUEtiapine Fumarate 25 MG TABLET PO (20:49)
[2022-09-28] VITALS: BP 125/68; PULSE 94; RESP 20; TEMP 36.5; O2SAT 97
[2022-09-28] MEDS: Metoprolol Tartrate 5 MG/5 ML VIAL IVPUSH (00:01)
[2022-09-28] MEDS: 0.9 % Sodium Chloride Flush 3 ML SYRINGE IVFLUSH ×4 (00:06→20:09)
[2022-09-28 00:16] LABS: Glucose, Whole Blood 157 mg/dL (60-115)
[2022-09-28] MEDS: Morphine Sulfate 2 MG/ML CARTRIDGE IVPUSH (03:35)
[2022-09-28] MEDS: dilTIAZem HCL 125 MG in 0.9 % Sodium Chloride 100 ML 10 MG IVCONT (03:36)
[2022-09-28 04:02] VITALS: BP 139/59; PULSE 109; RESP 11; TEMP 36.7; O2SAT 97
[2022-09-28] MEDS: OLANZapine 10 MG VIAL 5 MG IM (05:14)
[2022-09-28 05:45] VITALS: BMI 28.3
--- NOTE | 2022-09-28 05:51 | PC.NURSE ---
Patient increasingly agitated, attempting to climb OOB, difficult to redirect, PRN Zyprexa admin with no effect. MD notified , new order received for soft restraints to bilateral upper extremities. Vital signs and skin check done Q15 mins, 1 to 1 sitter @ bedside. Pt emergency contact Evelyne Woods notified.
[2022-09-28 06:31] LABS: Basophils Percent Auto 0.1 % (0-2); Eosinophils Percent Auto 0.1 % (0-4); Hematocrit 34.7 % (37.0-47.0); Hemoglobin 11.7 g/dl (12.0-16.0); Imm Gran Abs Auto 0.04 X10*3/uL (0.00-0.03); Imm Gran Pct Auto 0.4 % (0.0-0.4); Lymphocytes Absolute Auto 0.7 X10*3/uL (1.2-4.9); Lymphocytes Percent Auto 7.7 % (20-40); MANUAL DIFF FLAG SCAN; Mean Corpuscular HGB Conc 33.7 g/dl (31.0-35.0); Mean Corpuscular Volume 85.9 fL (80.0-98.0); Mean Platelet Volume 10.5 fL (9.4-12.3); Monocytes Absolute Auto 0.1 X10*3/uL (0.1-1.2); Monocytes Percent Auto 1.4 % (2-11); Neutrophils Absolute Auto 8.4 x10*3/uL (2.0-8.3); Neutrophils Percent Auto 90.3 % (45-73); Platelet Count 261 X10*3/uL (160-400); Red Blood Count 4.04 X10*6/uL (4.20-5.50); Red Cell Distribution Width 13.6 % (11.0-16.0); SCAN SMEAR FLAG 1; White Blood Count 9.3 X10*3/uL (4.8-10.8)
[2022-09-28 06:45] LABS: Alanine Aminotransferase 20 U/L (0-31); Albumin Level 3.4 g/dL (3.5-5.0); Alkaline Phosphatase 76 U/L (39-117); Anion Gap 12 (12-20); Aspartate Amino Transferase 28 U/L (5-31); Bilirubin Total 0.6 mg/dL (0.0-1.0); Blood Urea Nitrogen 14 mg/dL (9-16); Calcium 9.1 mg/dL (8.4-10.2); Carbon Dioxide 21 mmol/L (22-29); Chloride 111 mmol/L (96-108); Estimated Glomerular Filt Rate > 60; Glucose Random 154 mg/dL (60-115); Potassium 3.4 mmol/L (3.3-5.1); Sodium 141 mmol/L (135-145); Total Protein 6.8 g/dL (6.5-8.0)
[2022-09-28 06:59] LABS: SLIDE REVIEW VERIFIED
[2022-09-28 07:11] LABS: Glucose, Whole Blood 159 mg/dL (60-115)
[2022-09-28 07:40] VITALS: BP 169/82; PULSE 102; RESP 20; TEMP 36.7; O2SAT 96
--- NOTE | 2022-09-28 08:00 | PC.NURSE ---
Addendum entered by Priti Ford RN 09/28/22 18:14: Soft wrist restraints released at 1120. Attempted to walk pt to bathroom; pt very unsteady and reported dizziness, bedside commode used at this time for safety. Pt voiding with no issues. Attempted to apply cold packs to pt legs per pt request to help with her restless leg syndrome; not affective. Pt given water and offered other hydration options. Pt still restless, trying to get out of bed, yelling, swinging arms and legs around. At 1132 Ativan 1mg PO given; not affective. At this time; attempted to get pt to bedside recliner; pt unable to stay in the recliner. Pt consistently attempting to stand up. Attempted to try to walk pt again; pt very unsteady and unable to bear weight fully, pt back to recliner for safety. This RN called back to the room; pt still restless, attempting to get out of recliner, consistently trying to stand up with family members; educated provided about safety. New orders placed; Ativan 2mg PO given at 1516 and morphine 4 MG IV push; positive affect. Pt resting comfortably in bed. Cyproheptadine 6mg ordered as a one time dose; will hold at this time. Safety and fall precautions maintained. Call de leon within reach. Camera in room. Sitter in place Original Note: Pt agitated, anxious, restless, combative; swinging legs back and forth. Pt pulling on IVs. Pt in a soft wrist restraint to bilateral arm/wrist. Pt has been in behavioral restraints since 0545. Vitals Q15min in place. Skin checked and pt repositioned. Total care provided; pt washed/bathed, mouth care completed, loation and powder applied and new linen. Hydration and nutritional needs met. This RN did swallow eval; pt able to take in thin liquids and PO medication with no issues. Diet then changed to diabetic diet. PRN medications given; pt given Ativan 1mg IM and haloperidol 2.5mg IM at 0855; not affective. Pt remaining in restraints despite multiple alternatives attempted. Safety and fall precautions maintained. Call de leon within reach. Camera in room. Sitter in place
[2022-09-28] MEDS: Levothyroxine Sodium 100 MCG/5 ML VIAL 70 MCG IVPUSH (08:55)
[2022-09-28] MEDS: Haloperidol Lactate 5 MG/ML VIAL 2.5 MG IM (08:55)
[2022-09-28] MEDS: LORazepam 2 MG/ML VIAL 1 MG IM (08:55)
[2022-09-28] MEDS: methylPREDNISolone Sod Succ 1,000 MG in 0.9 % Sodium Chloride 50 ML 66 MG IV (09:35)
[2022-09-28] MEDS: levETIRAcetam in NaCl (iso-os) 1,000 MG/100 ML PIGGYBACK 400 MG IV (10:27)
--- NOTE | 2022-09-28 11:05 | MHC.CLN ---
NUTRITION INITIAL NUTRITION ASSESSMENT COMPLETED 09/27 WHILE PATIENT IN ICU. DIET ADVANCED FROM NPO TO DIABETIC 2000 KCALS THIS AM. POOR PO NOTED PRIOR TO ADMISSION. MONITOR PO INTAKE CLOSELY.
[2022-09-28] MEDS: 0.9 % Sodium Chloride 1,000 ML 100 ML IVCONT (11:32)
[2022-09-28] MEDS: Thiamine HCL 100 MG TABLET PO (11:32)
[2022-09-28] MEDS: QUEtiapine Fumarate 25 MG TABLET PO (11:32)
[2022-09-28] MEDS: LORazepam 1 MG TABLET PO (11:32)
[2022-09-28 11:37] VITALS: BP 169/72; PULSE 97; RESP 20; TEMP 36.6; O2SAT 98
[2022-09-28 11:53] LABS: Glucose, Whole Blood 147 mg/dL (60-115)
--- NOTE | 2022-09-28 11:55 | PM.PSYCN ---
History of Present Illness Date of Service: 09/28/2022 Chief Complaint: AFIB with rvr Reason for Consult: agitation Requesting physician: Loren Zavala Discussed with referring provider: Yes Sources of Information: patient interviewed, chart reviewed and crisis/core team assessment reviewed HPI Narrative: Ms. Woods is a 77 year-old woman brought in to [facility] ED due to fall. Pt found to have afib with RVR. Pt had similar medical admission also presented as confused and agitation. She was admitted to medical floor back in 07/2022. Pt presents with significant psychomotor agitation of lower extremity. Pt reports she is unable to stop moving feet. She also reports lower back pain. She is able to tell me that she is here because she felt. However, after that she asks this proposal manager writer if I can pray for me out loud. Pt denies SI/HI. She reports feeling very restless and anxious. She denies hearing or seeing things that are not there. Pt was given ativan and haldol earlier this morning. This proposal manager writer ordered additional dose of ativan but limited benefit. Pt seen an hour after having ativan 1 mg po and she continues to present as very restless, unable to stop moving both legs, and reporting pain due to ongoing involuntary bilat leg movement. Pt did not appear particularly psychotic, but extremely restless. She was able to tell this proposal manager writer the medications she is on and some of the medical conditions she is currently being treated for. Pt's PLATE ROLLER and sister were present during second assessment- they report usually involuntary movements of legs are not as severe during the day or at least do not cause this much distress. [facility] Medical History (Updated 09/26/22 @ 15:25 by Mark Bo MD) Addiction, opium Arthritis Autoimmune thyroiditis CHF (congestive heart failure) Depression with anxiety Diabetes type 2, uncontrolled Dyslipidemia Essential hypertension Hypothyroidism (acquired) Obesity (BMI 30-39.9) Osteopenia Overweight (BMI 25.0-29.9) Permanent atrial fibrillation Restless leg syndrome Vitamin D deficiency Surgical History History of radical hysterectomy Hx of arthroscopy of knee Hx of cataract surgery Diagnostics Vital Signs (24Hr): Vital Signs - 24 hr 09/27/22 12:00 09/27/22 13:00 09/27/22 15:00 Temperature 96.1 F L 96.3 F L 96.8 F Pulse Rate 62 64 74 Respiratory Rate 16 14 14 Blood Pressure 142/72 H 138/77 140/68 H Pulse Oximetry 96 97 95 Oxygen Delivery Method Room Air Room Air Room Air 09/27/22 16:00 09/27/22 17:00 09/27/22 18:00 Temperature 96.4 F L 96.8 F 96.4 F L Pulse Rate 69 66 76 Respiratory Rate 15 14 17 Blood Pressure 127/72 125/63 121/57 L Pulse Oximetry 96 95 98 Oxygen Delivery Method Room Air Room Air Room Air 09/27/22 14:00 09/27/22 19:00 09/27/22 20:00 Temperature 96.4 F L 97.7 F 97.7 F Pulse Rate 70 96 105 H Respiratory Rate 15 26 H 27 H Blood Pressure 148/65 H 117/47 L 150/78 H Pulse Oximetry 97 97 97 Oxygen Delivery Method Room Air Room Air Room Air 09/27/22 22:00 09/27/22 23:00 09/28/22 00:00 Temperature 97.0 F 97.7 F Pulse Rate 82 94 94 Respiratory Rate 12 13 20 Blood Pressure 133/65 133/69 125/68 Pulse Oximetry 94 96 97 Oxygen Delivery Method Room Air Room Air Room Air 09/28/22 04:02 09/28/22 07:40 09/28/22 11:37 Temperature 98.0 F 98.0 F 97.9 F Pulse Rate 109 H 102 H 97 Respiratory Rate 11 L 20 20 Blood Pressure 139/59 L 169/82 H 169/72 H Pulse Oximetry 97 96 98 Oxygen Delivery Method Room Air Room Air Room Air BMI result Body Mass Index 28.3 Labs 09/28/22 06:23 09/28/22 06:23 Labs: Laboratory Results - last 48 hr 09/26/22 09/26/22 09/26/22 05:50 12:43 12:43 WBC RBC Hgb Hct MCV MCH MCHC RDW Plt Count MPV Immature Gran % (Auto) Neut % (Auto) Lymph % (Auto) [place] % (Auto) Eos % (Auto) Baso % (Auto) Lymph # (Auto) [place] # (Auto) Eos # (Auto) Baso # (Auto) Abs Immat Gran (auto) Absolute Neuts (auto) Absolute Nucleated RBC Nucleated RBC % (auto) Smear Tech's Comments ESR VBG pH VBG pCO2 VBG pO2 VBG HCO3 VBG O2 Saturation VBG Base Excess Sodium Potassium Chloride Carbon Dioxide Anion Gap BUN Creatinine Estim Creat Clear Calc Estimated GFR POC Glucose Random Glucose Calcium Total Bilirubin AST ALT Alkaline Phosphatase Total Protein Albumin Vitamin B12 Folate TSH 2.85 Free T3 Prolactin 23.7 Random Cortisol Urine Color Urine Appearance Urine pH Ur Specific [place] Urine Protein Urine Glucose (UA) Urine Ketones Urine Blood Urine Nitrite Ur Leukocyte Esterase Urine RBC Urine WBC Ur Squamous Epith Cells Urine Bacteria Hyaline Casts Urine Fentanyl Screen SEE COMMENTS 09/26/22 09/26/22 09/26/22 12:43 15:56 16:26 WBC RBC Hgb Hct MCV MCH MCHC RDW Plt Count MPV Immature Gran % (Auto) Neut % (Auto) Lymph % (Auto) [place] % (Auto) Eos % (Auto) Baso % (Auto) Lymph # (Auto) [place] # (Auto) Eos # (Auto) Baso # (Auto) Abs Immat Gran (auto) Absolute Neuts (auto) Absolute Nucleated RBC Nucleated RBC % (auto) Smear Tech's Comments ESR 9 VBG pH VBG pCO2 VBG pO2 VBG HCO3 VBG O2 Saturation VBG Base Excess Sodium Potassium Chloride Carbon Dioxide Anion Gap BUN Creatinine Estim Creat Clear Calc Estimated GFR POC Glucose 90 Random Glucose Calcium Total Bilirubin AST ALT Alkaline Phosphatase Total Protein Albumin Vitamin B12 Folate TSH Free T3 3.0 Prolactin Random Cortisol Urine Color Urine Appearance Urine pH Ur Specific [place] Urine Protein Urine Glucose (UA) Urine Ketones Urine Blood Urine Nitrite Ur Leukocyte Esterase Urine RBC Urine WBC Ur Squamous Epith Cells Urine Bacteria Hyaline Casts Urine Fentanyl Screen 09/26/22 09/26/22 09/26/22 16:53 18:46 23:47 WBC RBC Hgb Hct MCV MCH MCHC RDW Plt Count MPV Immature Gran % (Auto) Neut % (Auto) Lymph % (Auto) [place] % (Auto) Eos % (Auto) Baso % (Auto) Lymph # (Auto) [place] # (Auto) Eos # (Auto) Baso # (Auto) Abs Immat Gran (auto) Absolute Neuts (auto) Absolute Nucleated RBC Nucleated RBC % (auto) Smear Tech's Comments ESR VBG pH VBG pCO2 VBG pO2 VBG HCO3 VBG O2 Saturation VBG Base Excess Sodium Potassium Chloride Carbon Dioxide Anion Gap BUN Creatinine Estim Creat Clear Calc Estimated GFR POC Glucose 115 115 Random Glucose Calcium Total Bilirubin AST ALT Alkaline Phosphatase Total Protein Albumin Vitamin B12 Folate TSH Free T3 Prolactin Random Cortisol Urine Color Yellow Urine Appearance Clear Urine pH 6.0 Ur Specific [place] 1.015 Urine Protein Trace Urine Glucose (UA) Negative Urine Ketones Negative Urine Blood Moderate (2+) H Urine Nitrite Negative Ur Leukocyte Esterase Negative Urine RBC >20 H Urine WBC 0-5 Ur Squamous Epith Cells 3-5 Urine Bacteria None Seen Hyaline Casts 0-2 Urine Fentanyl Screen 09/27/22 09/27/22 09/27/22 04:24 04:25 04:26 WBC 8.9 RBC 4.05 L Hgb 11.6 L Hct 35.5 L MCV 87.7 MCH 28.6 MCHC 32.7 RDW 13.7 Plt Count 257 MPV 10.5 Immature Gran % (Auto) 0.2 Neut % (Auto) 68.3 Lymph % (Auto) 21.2 [place] % (Auto) 7.8 Eos % (Auto) 1.5 Baso % (Auto) 1.0 Lymph # (Auto) 1.9 [place] # (Auto) 0.7 Eos # (Auto) 0.1 Baso # (Auto) 0.1 Abs Immat Gran (auto) 0.02 Absolute Neuts (auto) 6.1 Absolute Nucleated RBC 0.000 Nucleated RBC % (auto) 0.0 Smear Tech's Comments ESR VBG pH 7.51 H VBG pCO2 27 VBG pO2 123 VBG HCO3 22 VBG O2 Saturation 99.0 VBG Base Excess 0.5 Sodium 139 Potassium 3.8 Chloride 109 H Carbon Dioxide 21 L Anion Gap 13 BUN 11 Creatinine 0.72 Estim Creat Clear Calc 60.1 Estimated GFR > 60 POC Glucose Random Glucose 130 H Calcium 9.0 Total Bilirubin 0.9 AST 29 ALT 17 Alkaline Phosphatase 74 Total Protein 6.6 Albumin 3.3 L Vitamin B12 Folate TSH Free T3 Prolactin Random Cortisol Urine Color Urine Appearance Urine pH Ur Specific [place] Urine Protein Urine Glucose (UA) Urine Ketones Urine Blood Urine Nitrite Ur Leukocyte Esterase Urine RBC Urine WBC Ur Squamous Epith Cells Urine Bacteria Hyaline Casts Urine Fentanyl Screen 09/27/22 09/27/22 09/27/22 05:20 07:43 08:53 WBC RBC Hgb Hct MCV MCH MCHC RDW Plt Count MPV Immature Gran % (Auto) Neut % (Auto) Lymph % (Auto) [place] % (Auto) Eos % (Auto) Baso % (Auto) Lymph # (Auto) [place] # (Auto) Eos # (Auto) Baso # (Auto) Abs Immat Gran (auto) Absolute Neuts (auto) Absolute Nucleated RBC Nucleated RBC % (auto) Smear Tech's Comments ESR VBG pH 7.48 H VBG pCO2 30 VBG pO2 84 VBG HCO3 23 VBG O2 Saturation 98.0 VBG Base Excess 0.8 Sodium Potassium Chloride Carbon Dioxide Anion Gap BUN Creatinine Estim Creat Clear Calc Estimated GFR POC Glucose 142 H Random Glucose Calcium Total Bilirubin AST ALT Alkaline Phosphatase Total Protein Albumin Vitamin B12 468 Folate 13.3 TSH Free T3 Prolactin Random Cortisol Urine Color Urine Appearance Urine pH Ur Specific [place] Urine Protein Urine Glucose (UA) Urine Ketones Urine Blood Urine Nitrite Ur Leukocyte Esterase Urine RBC Urine WBC Ur Squamous Epith Cells Urine Bacteria Hyaline Casts Urine Fentanyl Screen 09/27/22 09/27/22 09/27/22 08:53 12:46 18:18 WBC RBC Hgb Hct MCV MCH MCHC RDW Plt Count MPV Immature Gran % (Auto) Neut % (Auto) Lymph % (Auto) [place] % (Auto) Eos % (Auto) Baso % (Auto) Lymph # (Auto) [place] # (Auto) Eos # (Auto) Baso # (Auto) Abs Immat Gran (auto) Absolute Neuts (auto) Absolute Nucleated RBC Nucleated RBC % (auto) Smear Tech's Comments ESR VBG pH VBG pCO2 VBG pO2 VBG HCO3 VBG O2 Saturation VBG Base Excess Sodium Potassium Chloride Carbon Dioxide Anion Gap BUN Creatinine Estim Creat Clear Calc Estimated GFR POC Glucose 151 H 164 H Random Glucose Calcium Total Bilirubin AST ALT Alkaline Phosphatase Total Protein Albumin Vitamin B12 Folate TSH Free T3 Prolactin Random Cortisol 7.7 Urine Color Urine Appearance Urine pH Ur Specific [place] Urine Protein Urine Glucose (UA) Urine Ketones Urine Blood Urine Nitrite Ur Leukocyte Esterase Urine RBC Urine WBC Ur Squamous Epith Cells Urine Bacteria Hyaline Casts Urine Fentanyl Screen 09/28/22 09/28/22 09/28/22 00:13 06:23 06:23 WBC 9.3 RBC 4.04 L Hgb 11.7 L Hct 34.7 L MCV 85.9 MCH 29.0 MCHC 33.7 RDW 13.6 Plt Count 261 MPV 10.5 Immature Gran % (Auto) 0.4 Neut % (Auto) 90.3 H Lymph % (Auto) 7.7 L [place] % (Auto) 1.4 L Eos % (Auto) 0.1 Baso % (Auto) 0.1 Lymph # (Auto) 0.7 L [place] # (Auto) 0.1 Eos # (Auto) 0.0 Baso # (Auto) 0.0 Abs Immat Gran (auto) 0.04 H Absolute Neuts (auto) 8.4 H Absolute Nucleated RBC 0.000 Nucleated RBC % (auto) 0.0 Smear Tech's Comments VERIFIED ESR VBG pH VBG pCO2 VBG pO2 VBG HCO3 VBG O2 Saturation VBG Base Excess Sodium 141 Potassium 3.4 Chloride 111 H Carbon Dioxide 21 L Anion Gap 12 BUN 14 Creatinine 0.65 Estim Creat Clear Calc 66.0 Estimated GFR > 60 POC Glucose 157 H Random Glucose 154 H Calcium 9.1 Total Bilirubin 0.6 AST 28 ALT 20 Alkaline Phosphatase 76 Total Protein 6.8 Albumin 3.4 L Vitamin B12 Folate TSH Free T3 Prolactin Random Cortisol Urine Color Urine Appearance Urine pH Ur Specific [place] Urine Protein Urine Glucose (UA) Urine Ketones Urine Blood Urine Nitrite Ur Leukocyte Esterase Urine RBC Urine WBC Ur Squamous Epith Cells Urine Bacteria Hyaline Casts Urine Fentanyl Screen 09/28/22 09/28/22 06:24 11:43 WBC RBC Hgb Hct MCV MCH MCHC RDW Plt Count MPV Immature Gran % (Auto) Neut % (Auto) Lymph % (Auto) [place] % (Auto) Eos % (Auto) Baso % (Auto) Lymph # (Auto) [place] # (Auto) Eos # (Auto) Baso # (Auto) Abs Immat Gran (auto) Absolute Neuts (auto) Absolute Nucleated RBC Nucleated RBC % (auto) Smear Tech's Comments ESR VBG pH VBG pCO2 VBG pO2 VBG HCO3 VBG O2 Saturation VBG Base Excess Sodium Potassium Chloride Carbon Dioxide Anion Gap BUN Creatinine Estim Creat Clear Calc Estimated GFR POC Glucose 159 H 147 H Random Glucose Calcium Total Bilirubin AST ALT Alkaline Phosphatase Total Protein Albumin Vitamin B12 Folate TSH Free T3 Prolactin Random Cortisol Urine Color Urine Appearance Urine pH Ur Specific [place] Urine Protein Urine Glucose (UA) Urine Ketones Urine Blood Urine Nitrite Ur Leukocyte Esterase Urine RBC Urine WBC Ur Squamous Epith Cells Urine Bacteria Hyaline Casts Urine Fentanyl Screen Imaging Radiology Impressions: ITS Impressions Chest X-Ray 09/26/22 05:30 IMPRESSION: No dense consolidation. Bronchial wall thickening can be seen with a small airways process such as asthma or atypical/viral infection. Cervical Spine CT 09/26/22 05:43 IMPRESSION: Motion limited study. 1. No acute intracranial finding. 2. No acute fracture or malalignment of the cervical spine. Mild degenerative changes. Head CT 09/26/22 05:43 IMPRESSION: Motion limited study. 1. No acute intracranial finding. 2. No acute fracture or malalignment of the cervical spine. Mild degenerative changes. Chest X-Ray 09/27/22 13:49 IMPRESSION: Mild interstitial edema KUB X-Ray 09/27/22 13:49 IMPRESSION: No radiographic foreign bodies identified Brain MRI 09/27/22 16:26 IMPRESSION: 1. No acute intracranial abnormalities. No abnormal intracranial enhancement. 2. Mild underlying microangiopathy and generalized cerebral volume loss. Mental Status Exam Mental Status Exam Narrative: Alert, oriented to place, situation, unable to tell the month or year, attention poor due to severe restlessness Appearance: lying in bed, very restless, in significant physical distress Behavior: engagement in conversation limited by severe restlessness Psychomotor: ongoing movement of bilat legs Speech: clear, some delayed in response, spontaneous TP: some disorganized thought process at times TC: feeling very uncomfortable and restless Mood: restless Affect: congruent SI: denies HI: denies VH/AH: denies delusions: no overt delusional content noted or reported. Medications Medications Current Medications Acetaminophen (Acetaminophen Supp 650 Mg Supp.Rect) 650 mg [place] Q6H PRN PRN Reason: Fever >100.4 Last Admin: 09/26/22 22:19 Dose: 650 mg Albuterol Sulfate (Albuterol Sulfate 90 Mcg 8 Gm Inhaler) 2 puff INHALE Q4H PRN PRN Reason: dyspnea Dextrose (Dextrose 50 % 25 Gm/50 Ml Syringe) 25 gm IVPUSH Q15M PRN; Protocol PRN Reason: per Hypoglycemia Standing Ord. Glucose (Glucose Gel 15 Gm Gel..Gram.) 15 gm PO Q15M PRN; Protocol PRN Reason: per Hypoglycemia Standing Ord. Thiamine HCl 100 mg/ Sodium (Chloride) 101 mls @ 202 mls/hr IV DAILY [facility] Last Admin: 09/28/22 11:20 Dose: Not Given Methylprednisolone Sodium Succinate 1,000 mg/ Sodium Chloride 66 mls @ 66 mls/hr IV DAILY [facility] Stop: 09/29/22 08:59 Last Admin: 09/28/22 10:24 Dose: Not Given Diltiazem HCl 125 mg/ Sodium (Chloride) 125 mls @ 0 mls/hr IVCONT .Q0M [facility]; Protocol Last Admin: 09/28/22 03:36 Dose: 10 mg/hr, 10 mls/hr Sodium Chloride (Ns) 1,000 mls @ 100 mls/hr IVCONT .Q10H [facility] Last Admin: 09/28/22 11:32 Dose: 100 mls/hr Insulin Human Lispro (Insulin Lispro 100 Unit/Ml 3 Ml Vial) 0 unit SUBCUT 0000,0600,1200,1800 [facility]; Protocol Last Admin: 09/28/22 06:55 Dose: Not Given Levothyroxine Sodium (Levothyroxine Sodium 100 Mcg/5 Ml Vial) 70 mcg IVPUSH DAILY@0600 [facility] Last Admin: 09/28/22 08:55 Dose: 70 mcg Lidocaine (Lidocaine 4 % Patch Adh..Patch) 1 patch TRANSDERMA DAILY PRN PRN Reason: Pain Pantoprazole Sodium (Pantoprazole Sodium 40 Mg/10 Ml Vial) 40 mg IVPUSH DAILY@0630 [facility] Last Admin: 09/28/22 09:49 Dose: Not Given Pharmacy Consult (Consult Rx Vancomycin Dosing) 1 each MISCELLANE DAILY PRN PRN Reason: Consult order Quetiapine Fumarate (Quetiapine Fumarate 25 Mg Tablet) 25 mg PO BID [facility] Last Admin: 09/28/22 11:32 Dose: 25 mg Sodium Chloride (0.9 % Sodium Chloride Flush 3 Ml Syringe) 3 ml IVFLUSH QSHIFT [facility] Last Admin: 09/28/22 08:56 Dose: 3 ml Thiamine HCl (Thiamine Hcl 100 Mg Tablet) 100 mg PO DAILY [facility] Last Admin: 09/28/22 11:32 Dose: 100 mg Allergies Allergies Allergy/AdvReac Type Severity Reaction Status Date / Time aspirin [ASPIRIN] Allergy Severe ANAPHYLAXIS Verified 09/21/22 14:02 Seasonal Allergies Allergy Intermediate asthma, Verified 09/21/22 14:02 itch, rash Assessment & Plan Assessment & Plan (1) Metabolic encephalopathy: Status: Acute Code(s): G93.41 - Metabolic encephalopathy Plan Ms. Woods is a 77 year-old woman admitted for afib with RVR, presents as restless, constant movement of lower extremities which cause significant distress. She is able to tell accurately where she is and reason for this medical admission. Her orientation has been fluctuating. Her attention is significant impaired due to severe restlessness. Per family, she usually needs to move legs but not to this extend nor as restless as she is presenting with severe lower extremity activation. In terms of management of restlessness/agitation, caution with antipsychotic as if what suspected such involuntary movement is related to RLS, antipsychotics, especially haldol and seroquel will make it worse. Use low doses of ativan. Total time managing care of this patient today ____ minutes.
[2022-09-28 12:45] LABS: Vancomycin Random 6.4 mcg/mL (15-20)
[2022-09-28] MEDS: dilTIAZem HCL 125 MG in 0.9 % Sodium Chloride 100 ML 15 MG IVCONT (14:10)
[2022-09-28 15:06] VITALS: BP 136/60; PULSE 118; RESP 20; TEMP 36.6; O2SAT 98
[2022-09-28] MEDS: LORazepam 0.5 MG TABLET 2 MG PO (15:16)
[2022-09-28] MEDS: Morphine Sulfate 4 MG/ML CARTRIDGE IVPUSH ×2 (15:17→22:13)
[2022-09-28 15:40] LABS: Glucose, Whole Blood 179 mg/dL (60-115)
--- NOTE | 2022-09-28 18:13 | P.PNIM_ITS ---
Subjective Subjective Date of Service: 09/28/22 Interval History: Received from ICU in 2 point restraints sitter present. Able to focus when directly talk to. No other acute issues Review of Systems Unable to obtain Physical Exam Vital Signs: Vital Signs: Last Vital Signs Temp 97.8 F 09/28/22 15:06 Pulse 118 H 09/28/22 15:06 Resp 20 09/28/22 15:06 BP 136/60 09/28/22 15:06 Pulse Ox 98 09/28/22 15:06 O2 Del Method Room Air 09/28/22 15:06 O2 Flow Rate 2 09/26/22 18:00 BMI result Body Mass Index 28.3 Const: Other: Awake alert will make eye contact but nonsensical verbalization Resp: Other: Clear to auscultation bilaterally no rales rhonchi or wheezes Cardio: Other: No S4; positive S1-S2; no S3 murmurs rubs or gallops GI: Other: Soft nontender nondistended with normoactive bowel sounds Extrem: Other: No edema. Restless legs Objective Data Active Medications Acetaminophen (Acetaminophen Supp 650 Mg Supp.Rect) 650 mg [place] Q6H PRN PRN Reason: Fever >100.4 Last Admin: 09/26/22 22:19 Dose: 650 mg Documented By: NERIS Albuterol Sulfate (Albuterol Sulfate 90 Mcg 8 Gm Inhaler) 2 puff INHALE Q4H PRN PRN Reason: dyspnea Dextrose (Dextrose 50 % 25 Gm/50 Ml Syringe) 25 gm IVPUSH Q15M PRN; Protocol PRN Reason: per Hypoglycemia Standing Ord. Glucose (Glucose Gel 15 Gm Gel..Gram.) 15 gm PO Q15M PRN; Protocol PRN Reason: per Hypoglycemia Standing Ord. Thiamine HCl 100 mg/ Sodium (Chloride) 101 mls @ 202 mls/hr IV DAILY [facility] Last Admin: 09/28/22 11:20 Dose: Not Given Documented By: MENDOZA Non-Admin Reason: PO ordered Methylprednisolone Sodium Succinate 1,000 mg/ Sodium Chloride 66 mls @ 66 mls/hr IV DAILY [facility] Stop: 09/29/22 08:59 Last Admin: 09/28/22 10:24 Dose: Not Given Documented By: MENDOZA Non-Admin Reason: ONE TIME DOSE GIVEN INSTEAD Diltiazem HCl 125 mg/ Sodium (Chloride) 125 mls @ 0 mls/hr IVCONT .Q0M [facility]; Protocol Last Admin: 09/28/22 14:10 Dose: 15 mg/hr, 15 mls/hr Documented By: MENDOZA Sodium Chloride (Ns) 1,000 mls @ 100 mls/hr IVCONT .Q10H [facility] Last Admin: 09/28/22 11:32 Dose: 100 mls/hr Documented By: MENDOZA Insulin Human Lispro (Insulin Lispro 100 Unit/Ml 3 Ml Vial) 0 unit SUBCUT 0000 ,0600,1200,1800 [facility]; Protocol Last Admin: 09/28/22 17:34 Dose: Not Given Documented By: MENDOZA Non-Admin Reason: Decreased PO intake Levothyroxine Sodium (Levothyroxine Sodium 100 Mcg/5 Ml Vial) 70 mcg IVPUSH DAILY@0600 [facility] Last Admin: 09/28/22 08:55 Dose: 70 mcg Documented By: MENDOZA Lidocaine (Lidocaine 4 % Patch Adh..Patch) 1 patch TRANSDERMA DAILY PRN PRN Reason: Pain Pantoprazole Sodium (Pantoprazole Sodium 40 Mg/10 Ml Vial) 40 mg IVPUSH D AILY@0630 [facility] Last Admin: 09/28/22 09:49 Dose: Not Given Documented By: MENDOZA Non-Admin Reason: PER PROVIDER GIVE 1000mg in NS Pharmacy Consult (Consult Rx Vancomycin Dosing) 1 each MISCELLANE DAILY PRN PRN Reason: Consult order Sodium Chloride (0.9 % Sodium Chloride Flush 3 Ml Syringe) 3 ml IVFLUSH QSHIFT [facility] Last Admin: 09/28/22 14:11 Dose: 3 ml Documented By: MENDOZA Thiamine HCl (Thiamine Hcl 100 Mg Tablet) 100 mg PO DAILY [facility] Last Admin: 09/28/22 11:32 Dose: 100 mg Documented By: MENDOZA Labs 09/28/22 06:23 09/28/22 06:23 Labs: Laboratory Results - last 24 hr 09/26/22 09/27/22 09/28/22 05:50 18:18 00:13 MCV MCH MCHC RDW Plt Count MPV Immature Gran % (Auto) Neut % (Auto) Lymph % (Auto) [place] % (Auto) Eos % (Auto) Baso % (Auto) Lymph # (Auto) [place] # (Auto) Eos # (Auto) Baso # (Auto) Abs Immat Gran (auto) Absolute Neuts (auto) Absolute Nucleated RBC Nucleated RBC % (auto) Smear Tech's Comments Anion Gap Estim Creat Clear Calc Estimated GFR POC Glucose 164 H 157 H Random Glucose Calcium Total Bilirubin AST ALT Alkaline Phosphatase Total Protein Albumin Random Vancomycin Ref Lab Test Result SEE NOTE 09/28/22 09/28/22 09/28/22 06:23 06:23 06:24 MCV 85.9 MCH 29.0 MCHC 33.7 RDW 13.6 Plt Count 261 MPV 10.5 Immature Gran % (Auto) 0.4 Neut % (Auto) 90.3 H Lymph % (Auto) 7.7 L [place] % (Auto) 1.4 L Eos % (Auto) 0.1 Baso % (Auto) 0.1 Lymph # (Auto) 0.7 L [place] # (Auto) 0.1 Eos # (Auto) 0.0 Baso # (Auto) 0.0 Abs Immat Gran (auto) 0.04 H Absolute Neuts (auto) 8.4 H Absolute Nucleated RBC 0.000 Nucleated RBC % (auto) 0.0 Smear Tech's Comments VERIFIED Anion Gap 12 Estim Creat Clear Calc 66.0 Estimated GFR > 60 POC Glucose 159 H Random Glucose 154 H Calcium 9.1 Total Bilirubin 0.6 AST 28 ALT 20 Alkaline Phosphatase 76 Total Protein 6.8 Albumin 3.4 L Random Vancomycin Ref Lab Test Result 09/28/22 09/28/22 09/28/22 11:43 12:21 15:31 MCV MCH MCHC RDW Plt Count MPV Immature Gran % (Auto) Neut % (Auto) Lymph % (Auto) [place] % (Auto) Eos % (Auto) Baso % (Auto) Lymph # (Auto) [place] # (Auto) Eos # (Auto) Baso # (Auto) Abs Immat Gran (auto) Absolute Neuts (auto) Absolute Nucleated RBC Nucleated RBC % (auto) Smear Tech's Comments Anion Gap Estim Creat Clear Calc Estimated GFR POC Glucose 147 H 179 H Random Glucose Calcium Total Bilirubin AST ALT Alkaline Phosphatase Total Protein Albumin Random Vancomycin 6.4 L Ref Lab Test Result Microbiology Microbiology Results: Microbiology 09/26/22 12:08 Blood Culture - Preliminary Blood - Venous No growth after 48 hours. 09/26/22 12:06 Blood Culture - Preliminary Blood - Venous No growth after 48 hours. Assessment and Plan (1) Toxic metabolic encephalopathy: Status: Acute (2) Atrial fibrillation with rapid ventricular response: Status: Acute Plan 77 old female with a PMH significant for AFib on Xarelto, non insulin-dependent diabetes, HTN, HLD, hypothyroidism, restless leg syndrome, asthma, here with frequent falls, AFIB with RVR and metablic encephalopathy. Appreciate psych input. .. Patient extremely restless on floor in restraints; Haldol Ativan with minimal effect. Noted to be on tramadol chronically question withdrawal. Responded to IV MSO4 1. Restlessness/agitation -attempt to avoid antipsychotics (Haldol/Zyprexa) -pulse dose morphine overnight for restlessness likely secondary to opiate withdrawal -restart tramadol in a.m. if appropriate 2.Permanent AFIB with RVR -continue Cardizem drip as ordered... Titrate as indicated -pulse dose metoprolol as needed -restart Xarelto in a.m. 3.Encephalopathy -multifactorial -aggressively treat comorbid C and follow clinically 4.Zsv-[id number]-evknwggyr diabetes type 2 -hold oral agents until a.m.; verify able to take p.o. -lispro correctional scale -adjust as indicated Full Code Xarelto Patient requires ongoing hospitalization for IV Cardizem to treat rapid ventricular response Time Spent With Patient Time: Total time managing care of this patient today ____ minutes. Quality Stroke Does the patient have a stroke diagnosis?: No VTE Prior VTE?: No VTE Risk Level:: Medical - moderate - high VTE Device Contraindication: Treatment Not Indicated VTE Drug Contraindication: N/A - Med Ordered
[2022-09-28 20:57] LABS: Lyme Abs Screen <0.90 index
[2022-09-28 21:28] LABS: Thyroglobulin Antibodies <1 IU/mL (< or = 1); Thyroid Peroxidase Antibodies 11 IU/mL (<9)
[2022-09-28 23:02] VITALS: BP 150/70; PULSE 82; RESP 18; TEMP 36.4; O2SAT 97
[2022-09-29 00:12] LABS: Glucose, Whole Blood 155 mg/dL (60-115)
[2022-09-29] MEDS: 0.9 % Sodium Chloride 1,000 ML 100 ML IVCONT (01:07)
[2022-09-29] MEDS: diphenhydrAMINE HCL 50 MG/ML VIAL IVPUSH (02:04)
[2022-09-29 03:21] VITALS: BP 169/78; PULSE 112; RESP 18; TEMP 36.6; O2SAT 97
--- NOTE | 2022-09-29 03:37 | P.EN_ITS ---
Event Note Date of Service: 09/29/22 Event Note: patient very restless, agitated, she seems to be only responding to morphine, making me think that this may be some sort of behavioral disturbance and drug- seeking behavior. Time Spent With Patient Time: Total time managing care of this patient today ____ minutes.
[2022-09-29] MEDS: Morphine Sulfate 4 MG/ML CARTRIDGE IVPUSH (04:04)
[2022-09-29 06:00] VITALS: BMI 27.7
[2022-09-29 06:10] LABS: Glucose, Whole Blood 186 mg/dL (60-115)
[2022-09-29] MEDS: Levothyroxine Sodium 100 MCG/5 ML VIAL 70 MCG IVPUSH (06:12)
[2022-09-29] MEDS: Pantoprazole Sodium 40 MG/10 ML VIAL IVPUSH (06:13)
[2022-09-29 07:28] VITALS: BP 185/90; PULSE 109; RESP 18; TEMP 36.9; O2SAT 96
[2022-09-29 07:33] LABS: Creatinine Clr Calc Pharmacy 63.3; Estimated Glomerular Filt Rate > 60
[2022-09-29 10:01] LABS: Glucose, Whole Blood 175 mg/dL (60-115)
[2022-09-29] MEDS: Thiamine HCL 100 MG TABLET PO (10:03)
[2022-09-29] MEDS: Insulin Lispro 100 UNIT/ML 3 ML VIAL SUBCUT ×3 (10:03→18:09)
[2022-09-29] MEDS: 0.9 % Sodium Chloride Flush 3 ML SYRINGE IVFLUSH ×2 (10:03→14:00)
[2022-09-29 11:01] VITALS: BP 137/67; PULSE 77; RESP 18; TEMP 37.1; O2SAT 98
--- NOTE | 2022-09-29 12:36 | MHC.CM.PN ---
EMR REVIEWED, PT STEP DOWN FROM ICU YESTERDAY 09/08, PER [facility] NO PLAN FOR D/C TODAY, CM WILL CONT TO FOLLOW D/C NEEDS.
[2022-09-29 12:55] LABS: Glucose, Whole Blood 167 mg/dL (60-115)
[2022-09-29 15:50] VITALS: BP 172/81; PULSE 90; RESP 20; TEMP 36.8; O2SAT 98
--- NOTE | 2022-09-29 16:51 | P.PNIM_ITS ---
Subjective Subjective Date of Service: 09/29/22 Interval History: Remarkably clear and cohesive today. Voices no acute complaints Review of Systems Denies chest pain Denies shortness of breath Denies nausea vomiting diarrhea Denies fever chills Physical Exam Vital Signs: Vital Signs: Last Vital Signs Temp 98.2 F 09/29/22 15:50 Pulse 90 09/29/22 15:50 Resp 20 09/29/22 15:50 BP 172/81 H 09/29/22 15:50 Pulse Ox 98 09/29/22 15:50 O2 Del Method Room Air 09/29/22 15:50 O2 Flow Rate 2 09/26/22 18:00 BMI result Body Mass Index 27.7 Const: Other: Awake alert ; clear in cohesive thought pattern lying peacefully in bed Resp: Other: Clear to auscultation bilaterally no rales rhonchi or wheezes Cardio: Other: No S4; positive S1-S2; no S3 murmurs rubs or gallops GI: Other: Soft nontender nondistended with normoactive bowel sounds Extrem: Other: No edema. Restless legs Objective Data Active Medications Acetaminophen (Acetaminophen Supp 650 Mg Supp.Rect) 650 mg ND Q6H PRN PRN Reason: Fever >100.4 Last Admin: 09/26/22 22:19 Dose: 650 mg Documented By: NERIS Albuterol Sulfate (Albuterol Sulfate 90 Mcg 8 Gm Inhaler) 2 puff INHALE Q4H PRN PRN Reason: dyspnea Dextrose (Dextrose 50 % 25 Gm/50 Ml Syringe) 25 gm IVPUSH Q15M PRN; Protocol PRN Reason: per Hypoglycemia Standing Ord. Glucose (Glucose Gel 15 Gm Gel..Gram.) 15 gm PO Q15M PRN; Protocol PRN Reason: per Hypoglycemia Standing Ord. Thiamine HCl 100 mg/ Sodium (Chloride) 101 mls @ 202 mls/hr IV DAILY [facility] Last Admin: 09/29/22 10:04 Dose: Not Given Documented By: BELINDA Non-Admin Reason: PO dose ordered instead Diltiazem HCl 125 mg/ Sodium (Chloride) 125 mls @ 0 mls/hr IVCONT .Q0M [facility]; Protocol Last Titration: 09/29/22 05:49 Dose: 5 mg/hr, 5 mls/hr Documented By: JOSE Sodium Chloride (Ns) 1,000 mls @ 100 mls/hr IVCONT .Q10H [facility] Last Infusion: 09/29/22 12:21 Dose: 0 mls/hr Documented By: BELINDA Insulin Human Lispro (Insulin Lispro 100 Unit/Ml 3 Ml Vial) 0 unit SUBCUT 0000,0600,1200,1800 [facility]; Protocol Last Admin: 09/29/22 13:59 Dose: 2 unit Documented By: BELINDA Levothyroxine Sodium (Levothyroxine Sodium 100 Mcg/5 Ml Vial) 70 mcg IVPUSH DAILY@0600 [facility] Last Admin: 09/29/22 06:12 Dose: 70 mcg Documented By: ROSARIO Lidocaine (Lidocaine 4 % Patch Adh..Patch) 1 patch TRANSDERMA DAILY PRN PRN Reason: Pain Pantoprazole Sodium (Pantoprazole Sodium 40 Mg/10 Ml Vial) 40 mg IVPUSH DAILY@0630 [facility] Last Admin: 09/29/22 06:13 Dose: 40 mg Documented By: ROSARIO Pharmacy Consult (Consult Rx Vancomycin Dosing) 1 each MISCELLANE DAILY PRN PRN Reason: Consult order Sodium Chloride (0.9 % Sodium Chloride Flush 3 Ml Syringe) 3 ml IVFLUSH QSHIFT [facility] Last Admin: 09/29/22 14:00 Dose: 3 ml Documented By: BELINDA Thiamine HCl (Thiamine Hcl 100 Mg Tablet) 100 mg PO DAILY [facility] Last Admin: 09/29/22 10:03 Dose: 100 mg Documented By: BELINDA Labs 09/28/22 06:23 09/29/22 06:31 Labs: Laboratory Results - last 24 hr 09/26/22 09/27/22 09/29/22 19:50 08:15 00:07 Estim Creat Clear Calc Estimated GFR POC Glucose 155 H Thyroglobulin Antibody <1 Thyroid Peroxidase Ab 11 H Lyme Screen IgG & IgM <0.90 Lyme Progressive Test TNP 09/29/22 09/29/22 09/29/22 06:02 06:31 09:57 Estim Creat Clear Calc 63.3 Estimated GFR > 60 POC Glucose 186 H 175 H Thyroglobulin Antibody Thyroid Peroxidase Ab Lyme Screen IgG & IgM Lyme Progressive Test 09/29/22 12:44 Estim Creat Clear Calc Estimated GFR POC Glucose 167 H Thyroglobulin Antibody Thyroid Peroxidase Ab Lyme Screen IgG & IgM Lyme Progressive Test Microbiology Microbiology Results: Microbiology 09/26/22 12:08 Blood Culture - Preliminary Blood - Venous No growth after 48 hours. 09/26/22 12:06 Blood Culture - Preliminary Blood - Venous No growth after 48 hours. Assessment and Plan (1) Permanent atrial fibrillation: Status: Acute (2) Metabolic encephalopathy: Status: Acute Plan 77 old female with a PMH significant for AFib on Xarelto, non insulin-dependent diabetes, HTN, HLD, hypothyroidism, restless leg syndrome, asthma, here with frequent falls, AFIB with RVR and metablic encephalopathy. Appreciate psych input. .. Patient extremely restless on floor in restraints; Haldol Ativan with minimal effect. Noted to be on tramadol chronically question withdrawal. Responded to IV MSO4 1. Restlessness/agitation -all have resolved -mentation clear no acute issues 2.Permanent AFIB with RVR -continue Cardizem drip as ordered... Will add orals in a.m. and DC drip if rate continues to be control -pulse dose metoprolol as needed -restart Xarelto . 3.Encephalopathy -resolved 4.Tba-bpvulsf-pnzmhpfar diabetes type 2 -hold oral agents until a.m.. -lispro correctional scale -adjust as indicated Full Code Xarelto Patient requires ongoing hospitalization for IV Cardizem to treat rapid ventricular response Time Spent With Patient Time: Total time managing care of this patient today ____ minutes. Quality Stroke Does the patient have a stroke diagnosis?: No VTE Prior VTE?: No VTE Risk Level:: Medical - moderate - high VTE Device Contraindication: Treatment Not Indicated VTE Drug Contraindication: N/A - Med Ordered
[2022-09-29 18:04] LABS: Glucose, Whole Blood 166 mg/dL (60-115)
[2022-09-29] MEDS: Rivaroxaban 20 MG TABLET PO (18:09)
[2022-09-29] MEDS: dilTIAZem HCL 125 MG in 0.9 % Sodium Chloride 100 ML IVCONT (18:18)
[2022-09-29 18:28] VITALS: BP 167/78; PULSE 103; RESP 20; TEMP 37.2; O2SAT 98
[2022-09-29 20:09] LABS: Babesia IgG <1:64 titer (<1:64); Babesia IgM <1:20 titer (<1:20)
[2022-09-29 23:10] VITALS: BP 166/77; PULSE 89; RESP 17; TEMP 36.6; O2SAT 94
[2022-09-30] MEDS: 0.9 % Sodium Chloride Flush 3 ML SYRINGE IVFLUSH ×3 (00:01→23:23)
[2022-09-30 00:11] LABS: Glucose, Whole Blood 153 mg/dL (60-115)
[2022-09-30 04:00] VITALS: BP 172/80; PULSE 104; RESP 18; TEMP 36.6; O2SAT 98
[2022-09-30 06:00] VITALS: BMI 28.3
[2022-09-30 06:05] LABS: Glucose, Whole Blood 174 mg/dL (60-115)
[2022-09-30] MEDS: Levothyroxine Sodium 112 MCG, Levothyroxine Sodium 25 MCG 137 MCG PO (06:28)
[2022-09-30] MEDS: Omeprazole 40 MG CAPSULE.DR PO (06:29)
[2022-09-30] MEDS: Insulin Lispro 100 UNIT/ML 3 ML VIAL SUBCUT ×2 (06:29→12:09)
[2022-09-30 07:38] VITALS: BP 190/92; PULSE 88; RESP 20; TEMP 36.4; O2SAT 99
[2022-09-30] MEDS: Thiamine HCL 100 MG TABLET PO (07:51)
[2022-09-30] MEDS: Rivaroxaban 20 MG TABLET PO (07:51)
[2022-09-30 07:55] LABS: Estimated Glomerular Filt Rate > 60
[2022-09-30 10:28] LABS: Norfentanyl, Ur NEGATIVE
[2022-09-30 11:48] VITALS: BP 171/87; PULSE 95; RESP 20; TEMP 36.8; O2SAT 99
[2022-09-30 11:53] LABS: Glucose, Whole Blood 156 mg/dL (60-115)
--- NOTE | 2022-09-30 15:07 | HO.PM.IMPN ---
Subjective Subjective Date of Service: 09/30/22 Interval History: Doing excellent from cognitive standpoint. Has remained on diltiazem drip good rate control. Review of Systems Denies chest pain Denies shortness of breath Denies nausea vomiting diarrhea Denies fever chills Physical Exam Vital Signs: Vital Signs: Last Vital Signs Temp 98.2 F 09/30/22 11:48 Pulse 95 09/30/22 11:48 Resp 20 09/30/22 11:48 BP 171/87 H 09/30/22 11:48 Pulse Ox 99 09/30/22 11:48 O2 Del Method Room Air 09/30/22 11:48 O2 Flow Rate 2 09/26/22 18:00 BMI result Body Mass Index 28.3 Const: Other: Awake alert ; clear in cohesive thought pattern lying peacefully in bed Resp: Other: Clear to auscultation bilaterally no rales rhonchi or wheezes Cardio: Other: No S4; positive S1-S2; no S3 murmurs rubs or gallops GI: Other: Soft nontender nondistended with normoactive bowel sounds Extrem: Other: No edema. Restless legs Objective Data Active Medications Acetaminophen (Acetaminophen Supp 650 Mg Supp.Rect) 650 mg [place] Q6H PRN PRN Reason: Fever >100.4 Last Admin: 09/26/22 22:19 Dose: 650 mg Documented By: NERIS Albuterol Sulfate (Albuterol Sulfate 90 Mcg 8 Gm Inhaler) 2 puff INHALE Q4H PRN PRN Reason: dyspnea Dextrose (Dextrose 50 % 25 Gm/50 Ml Syringe) 25 gm IVPUSH Q15M PRN; Protocol PRN Reason: per Hypoglycemia Standing Ord. Glucose (Glucose Gel 15 Gm Gel..Gram.) 15 gm PO Q15M PRN; Protocol PRN Reason: per Hypoglycemia Standing Ord. Diltiazem HCl 125 mg/ Sodium (Chloride) 125 mls @ 0 mls/hr IVCONT .Q0M [facility]; Protocol Last Admin: 09/29/22 18:18 Dose: 5 mg/hr, 5 mls/hr Documented By: BELINDA Insulin Human Lispro (Insulin Lispro 100 Unit/Ml 3 Ml Vial) 0 unit SUBCUT 0000,0600,1200,1800 [facility]; Protocol Last Admin: 09/30/22 12:09 Dose: 2 unit Documented By: PRANAY Levothyroxine Sodium 112 mcg/ (Levothyroxine Sodium 25 mcg) 137 mcg PO DAILY@0600 [facility] Last Admin: 09/30/22 06:28 Dose: 137 mcg Documented By: MARIO ALBERTO Lidocaine (Lidocaine 4 % Patch Adh..Patch) 1 patch TRANSDERMA DAILY PRN PRN Reason: Pain Omeprazole (Omeprazole 40 Mg Capsule.Dr) 40 mg PO DAILY@0630 [facility] Last Admin: 09/30/22 06:29 Dose: 40 mg Documented By: MARIO ALBERTO Pharmacy Consult (Consult Rx Vancomycin Dosing) 1 each MISCELLANE DAILY PRN PRN Reason: Consult order Rivaroxaban (Rivaroxaban 20 Mg Tablet) 20 mg PO DAILY [facility] Last Admin: 09/30/22 07:51 Dose: 20 mg Documented By: PRANAY Sodium Chloride (0.9 % Sodium Chloride Flush 3 Ml Syringe) 3 ml IVFLUSH QSHIFT [facility] Last Admin: 09/30/22 07:51 Dose: 3 ml Documented By: PRANAY Thiamine HCl (Thiamine Hcl 100 Mg Tablet) 100 mg PO DAILY [facility] Last Admin: 09/30/22 07:51 Dose: 100 mg Documented By: PRANAY Labs 09/28/22 06:23 09/30/22 07:04 Labs: Laboratory Results - last 24 hr 09/26/22 09/26/22 09/29/22 05:50 21:05 17:59 Estim Creat Clear Calc Estimated GFR POC Glucose 166 H Urine Fentanyl Screen SEE NOTE Urine Fentanyl NEGATIVE Ur Norfentanyl Quant NEGATIVE Babesia microti IgG Ab <1:64 Babesia microti IgM Ab <1:20 Babesia Interpretation see note 09/30/22 09/30/22 09/30/22 00:06 05:57 07:04 Estim Creat Clear Calc 63.0 Estimated GFR > 60 POC Glucose 153 H 174 H Urine Fentanyl Screen Urine Fentanyl Ur Norfentanyl Quant Babesia microti IgG Ab Babesia microti IgM Ab Babesia Interpretation 09/30/22 11:47 Estim Creat Clear Calc Estimated GFR POC Glucose 156 H Urine Fentanyl Screen Urine Fentanyl Ur Norfentanyl Quant Babesia microti IgG Ab Babesia microti IgM Ab Babesia Interpretation Assessment and Plan (1) Permanent atrial fibrillation: Status: Acute (2) Diabetes: Status: Acute Plan 77 old female with a PMH significant for AFib on Xarelto, non insulin-dependent diabetes, HTN, HLD, hypothyroidism, restless leg syndrome, asthma, here with frequent falls, AFIB with RVR and metablic encephalopathy. Appreciate psych input. .. Patient extremely restless on floor in restraints; Haldol Ativan with minimal effect. Noted to be on tramadol chronically question withdrawal. Responded to IV MSO4 1. Restlessness/agitation -all have resolved -mentation clear no acute issues 2.Permanent AFIB with RVR -DC Cardizem drip -p.o. Cardizem. .. Observe overnight -Xarelto . 3.Encephalopathy -resolved 4.[id number]-azyhlwhiv diabetes type 2 -acceptable control on current therapies. -lispro correctional scale -adjust as indicated Full Code Xarelto Patient requires ongoing hospitalization for IV Cardizem to treat rapid ventricular response Time Spent With Patient Time: Total time managing care of this patient today ____ minutes. Quality Stroke Does the patient have a stroke diagnosis?: No VTE Prior VTE?: No VTE Risk Level:: Medical - moderate - high VTE Device Contraindication: Treatment Not Indicated VTE Drug Contraindication: N/A - Med Ordered
[2022-09-30] MEDS: dilTIAZem HCL CD 180 MG CAP.ER.24H PO (15:19)
[2022-09-30 15:53] VITALS: BP 188/86; PULSE 88; RESP 18; TEMP 36.4; O2SAT 97
[2022-09-30 17:12] LABS: Glucose, Whole Blood 142 mg/dL (60-115)
[2022-09-30] MEDS: ondansetron HCL 4 MG/2 ML VIAL IVPUSH (17:13)
[2022-09-30 19:39] VITALS: BP 161/97; PULSE 89; RESP 18; TEMP 36.1; O2SAT 96
[2022-09-30 23:41] LABS: Glucose, Whole Blood 180 mg/dL (60-115)
[2022-09-30 23:46] VITALS: BP 160/92; PULSE 80; RESP 18; TEMP 36.4; O2SAT 97
[2022-10-01] VITALS (7 sets, daily range): BP systolic 127–179; BP diastolic 73–83; PULSE 76–98; RESP 18; TEMP 36–36.8; O2SAT 95–100; BMI 29.6
[2022-10-01] MEDS: Insulin Lispro 100 UNIT/ML 3 ML VIAL SUBCUT ×2 (01:10→17:26)
[2022-10-01] MEDS: traMADoL HCL 50 MG TABLET PO (01:36)
[2022-10-01] MEDS: Omeprazole 40 MG CAPSULE.DR PO (05:43)
[2022-10-01] MEDS: Levothyroxine Sodium 112 MCG, Levothyroxine Sodium 25 MCG 137 MCG PO (05:43)
[2022-10-01 06:26] LABS: Glucose, Whole Blood 90 mg/dL (60-115)
[2022-10-01 06:40] LABS: Creatinine Clr Calc Pharmacy 61.6; Estimated Glomerular Filt Rate > 60
[2022-10-01] MEDS: dilTIAZem HCL CD 180 MG CAP.ER.24H PO (08:06)
[2022-10-01] MEDS: Thiamine HCL 100 MG TABLET PO (08:06)
[2022-10-01] MEDS: Rivaroxaban 20 MG TABLET PO (08:06)
[2022-10-01] MEDS: 0.9 % Sodium Chloride Flush 3 ML SYRINGE IVFLUSH ×3 (08:07→20:24)
[2022-10-01 11:35] LABS: Glucose, Whole Blood 84 mg/dL (60-115)
--- NOTE | 2022-10-01 16:10 | P.PNIM_ITS ---
Subjective Subjective Date of Service: 10/01/22 Interval History: Remains cognitively clear. Hesitant about returning home alone with services Review of Systems Denies chest pain Denies shortness of breath Denies nausea vomiting diarrhea Denies fever chills Physical Exam Vital Signs: Vital Signs: Last Vital Signs Temp 98.3 F 10/01/22 15:12 Pulse 76 10/01/22 15:12 Resp 18 10/01/22 15:12 BP 175/75 H 10/01/22 15:12 Pulse Ox 98 10/01/22 15:12 O2 Del Method Room Air 10/01/22 15:12 O2 Flow Rate 2 09/26/22 18:00 BMI result Body Mass Index 29.6 Const: Other: Awake alert ; clear in cohesive thought pattern lying peacefully in bed Resp: Other: Clear to auscultation bilaterally no rales rhonchi or wheezes Cardio: Other: No S4; positive S1-S2; no S3 murmurs rubs or gallops GI: Other: Soft nontender nondistended with normoactive bowel sounds Extrem: Other: No edema. Restless legs Objective Data Active Medications Acetaminophen (Acetaminophen Supp 650 Mg Supp.Rect) 650 mg [place] Q6H PRN PRN Reason: Fever >100.4 Last Admin: 09/26/22 22:19 Dose: 650 mg Documented By: NERIS Albuterol Sulfate (Albuterol Sulfate 90 Mcg 8 Gm Inhaler) 2 puff INHALE Q4H PRN PRN Reason: dyspnea Dextrose (Dextrose 50 % 25 Gm/50 Ml Syringe) 25 gm IVPUSH Q15M PRN; Protocol PRN Reason: per Hypoglycemia Standing Ord. Diltiazem HCl (Diltiazem Hcl Cd 180 Mg Cap.Er.24h) 180 mg PO DAILY [facility]; Protocol Last Admin: 10/01/22 08:06 Dose: 180 mg Documented By: PRANAY Glucose (Glucose Gel 15 Gm Gel..Gram.) 15 gm PO Q15M PRN; Protocol PRN Reason: per Hypoglycemia Standing Ord. Insulin Human Lispro (Insulin Lispro 100 Unit/Ml 3 Ml Vial) 0 unit SUBCUT 0000,0600,1200,1800 [facility]; Protocol Last Admin: 10/01/22 11:48 Dose: Not Given Documented By: PRANAY Non-Admin Reason: No Insulin Coverage Levothyroxine Sodium 112 mcg/ (Levothyroxine Sodium 25 mcg) 137 mcg PO DAILY@0600 [facility] Last Admin: 10/01/22 05:43 Dose: 137 mcg Documented By: SUSY Lidocaine (Lidocaine 4 % Patch Adh..Patch) 1 patch TRANSDERMA DAILY PRN PRN Reason: Pain Omeprazole (Omeprazole 40 Mg Capsule.) 40 mg PO DAILY@0630 [facility] Last Admin: 10/01/22 05:43 Dose: 40 mg Documented By: SUSY Pharmacy Consult (Consult Rx Vancomycin Dosing) 1 each MISCELLANE DAILY PRN PRN Reason: Consult order Rivaroxaban (Rivaroxaban 20 Mg Tablet) 20 mg PO DAILY [facility] Last Admin: 10/01/22 08:06 Dose: 20 mg Documented By: PRANAY Sodium Chloride (0.9 % Sodium Chloride Flush 3 Ml Syringe) 3 ml IVFLUSH QSHIFT [facility] Last Admin: 10/01/22 08:07 Dose: 3 ml Documented By: PRANAY Thiamine HCl (Thiamine Hcl 100 Mg Tablet) 100 mg PO DAILY [facility] Last Admin: 10/01/22 08:06 Dose: 100 mg Documented By: PRANAY Tramadol HCl (Tramadol Hcl 50 Mg Tablet) 50 mg PO Q12H PRN PRN Reason: severe pain Last Admin: 10/01/22 01:36 Dose: 50 mg Documented By: SUSY Labs 09/28/22 06:23 10/01/22 05:55 Labs: Laboratory Results - last 24 hr 09/30/22 09/30/22 10/01/22 16:44 23:29 05:55 Estim Creat Clear Calc 61.6 Estimated GFR > 60 POC Glucose 142 H 180 H 10/01/22 10/01/22 06:21 11:31 Estim Creat Clear Calc Estimated GFR POC Glucose 90 84 Microbiology Microbiology Results: Microbiology 09/26/22 12:08 Blood Culture - Final Blood - Venous No growth after 5 days. 09/26/22 12:06 Blood Culture - Final Blood - Venous No growth after 5 days. Assessment and Plan (1) Metabolic encephalopathy: Status: Acute (2) Permanent atrial fibrillation: Status: Acute Plan 77 old female with a PMH significant for AFib on Xarelto, non insulin-dependent diabetes, HTN, HLD, hypothyroidism, restless leg syndrome, asthma, here with frequent falls, AFIB with RVR and metablic encephalopathy. Appreciate psych input. .. Patient extremely restless on floor in restraints; Haldol Ativan with minimal effect. Noted to be on tramadol chronically question withdrawal. Responded to IV MSO4 1. Restlessness/agitation -all have resolved -mentation clear no acute issues 2.Permanent AFIB with RVR -acceptable control on p.o. Cardizem -adjust as indicated -Xarelto . 3.Encephalopathy -resolved 4.Gcr-brpjovs-qabaajbxt diabetes type 2 -acceptable control on current therapies. -lispro correctional scale -adjust as indicated Full Code Xarelto Requires ongoing hospitalization pending safe placement Time Spent With Patient Time: Total time managing care of this patient today ____ minutes. Quality Stroke Does the patient have a stroke diagnosis?: No VTE Prior VTE?: No VTE Risk Level:: Medical - moderate - high VTE Device Contraindication: Treatment Not Indicated VTE Drug Contraindication: N/A - Med Ordered
--- NOTE | 2022-10-01 16:33 | MHC.CM.PN ---
Second IMM given 10/01. PT was medically cleared for D/C, plan was for pt to return home with [employer] and new VNA. Pt then stated she felt scared to go home and wants to go to [facility] to get stronger. MD aware and will add PT consult. Referrals placed. CM will continue to follow.
[2022-10-01 17:24] LABS: Glucose, Whole Blood 155 mg/dL (60-115)
[2022-10-01] MEDS: traZODone HCL 50 MG TABLET PO (20:23)
[2022-10-01 23:55] LABS: Glucose, Whole Blood 125 mg/dL (60-115)
[2022-10-02 03:19] VITALS: BP 140/84; PULSE 79; RESP 18; TEMP 36.4; O2SAT 96
[2022-10-02] MEDS: Levothyroxine Sodium 112 MCG, Levothyroxine Sodium 25 MCG 137 MCG PO (05:58)
[2022-10-02] MEDS: Omeprazole 40 MG CAPSULE.DR PO (05:58)
[2022-10-02 06:00] VITALS: BMI 29.2
[2022-10-02 06:08] LABS: Glucose, Whole Blood 93 mg/dL (60-115)
[2022-10-02 06:59] LABS: Creatinine Clr Calc Pharmacy 67.9; Estimated Glomerular Filt Rate > 60
[2022-10-02 07:22] VITALS: BP 140/80; PULSE 67; RESP 16; TEMP 36.4; O2SAT 94
[2022-10-02] MEDS: Thiamine HCL 100 MG TABLET PO (08:48)
[2022-10-02] MEDS: 0.9 % Sodium Chloride Flush 3 ML SYRINGE IVFLUSH ×3 (08:48→21:11)
[2022-10-02] MEDS: dilTIAZem HCL CD 180 MG CAP.ER.24H PO (08:48)
[2022-10-02] MEDS: Rivaroxaban 20 MG TABLET PO (08:48)
[2022-10-02 11:03] VITALS: BP 153/70; PULSE 82; RESP 16; TEMP 36.3; O2SAT 94
[2022-10-02 11:41] LABS: Glucose, Whole Blood 95 mg/dL (60-115)
--- NOTE | 2022-10-02 12:31 | MHC.CM.PN ---
EMR REVIEWED, CASE DISCUSSED W/HOSPITALIST AND CM REACHED OUT TO [facility]/HCP, P.Silver REYNOLDS ALSO REQUESTED PT WAS ASKING FOR STR. HCP MONY/2ND COUSIN CONTACTED AND SHE REPORTS PT HAS BEEN MORE AND MORE DIFFICULT FOR PT'S COUSIN WHO PAT HAS BEEN STAYING WITH TO MANAGE, PT NOT LISTENING AND ASSISTING ON GETTING UP AND FALLING AND MONY REPORTING PT OVERTAKES HER CLONOPIN AND TRAMADOL AND BELIEVES SHE IS ADDICTIVE. PER PT'S COUSIN PT'S SISTER EMEKA IS COMING FROM [place] NEXT WEEKEND AND REPORTS SHE WOULD LIKE HER PLACED IN SNF/STR, PT IS AGREEABLE TO STR. NOT LIKELY PT'S COUSIN WILL BE ABLE TO ACCOMMODATE PT'S INCREASING NEEDS. NEREYDA BROWN FOLLOWING, PT RODOLFO PENDING. CM WILL CONT TO FOLLOW.
--- NOTE | 2022-10-02 13:25 | HO.PM.IMPN ---
Subjective Subjective Date of Service: 10/02/22 Interval History: Doing well overall. Mentation at baseline. end worker's notes reviewed Review of Systems Denies chest pain Denies shortness of breath Denies nausea vomiting diarrhea Denies fever chills Physical Exam Vital Signs: Vital Signs: Last Vital Signs Temp 97.3 F 10/02/22 11:03 Pulse 82 10/02/22 11:03 Resp 16 10/02/22 11:03 BP 153/70 H 10/02/22 11:03 Pulse Ox 94 10/02/22 11:03 O2 Del Method Room Air 10/02/22 11:03 O2 Flow Rate 2 09/26/22 18:00 BMI result Body Mass Index 29.2 Const: Other: Awake alert ; clear in cohesive thought pattern lying peacefully in bed Resp: Other: Clear to auscultation bilaterally no rales rhonchi or wheezes Cardio: Other: No S4; positive S1-S2; no S3 murmurs rubs or gallops GI: Other: Soft nontender nondistended with normoactive bowel sounds Extrem: Other: No edema. Restless legs Objective Data Active Medications Acetaminophen (Acetaminophen Supp 650 Mg Supp.Rect) 650 mg SD Q6H PRN PRN Reason: Fever >100.4 Last Admin: 09/26/22 22:19 Dose: 650 mg Documented By: NERIS Albuterol Sulfate (Albuterol Sulfate 90 Mcg 8 Gm Inhaler) 2 puff INHALE Q4H PRN PRN Reason: dyspnea Dextrose (Dextrose 50 % 25 Gm/50 Ml Syringe) 25 gm IVPUSH Q15M PRN; Protocol PRN Reason: per Hypoglycemia Standing Ord. Dextrose (Dextrose 50 % 25 Gm/50 Ml Syringe) 25 gm IVPUSH Q15M PRN; Protocol PRN Reason: per Hypoglycemia Standing Ord. Diltiazem HCl (Diltiazem Hcl Cd 180 Mg Cap.Er.24h) 180 mg PO DAILY [facility]; Protocol Last Admin: 10/02/22 08:48 Dose: 180 mg Documented By: YUKI Glucose (Glucose Gel 15 Gm Gel..Gram.) 15 gm PO Q15M PRN; Protocol PRN Reason: per Hypoglycemia Standing Ord. Glucose (Glucose Gel 15 Gm Gel..Gram.) 15 gm PO Q15M PRN; Protocol PRN Reason: per Hypoglycemia Standing Ord. Insulin Human Lispro (Insulin Lispro 100 Unit/Ml 3 Ml Vial) 0 unit SUBCUT 0000,0600,1200,1800 [facility]; Protocol Last Admin: 10/02/22 06:08 Dose: Not Given Documented By: UMAIR Non-Admin Reason: No Insulin Coverage Insulin Human Lispro (Insulin Lispro 100 Unit/Ml 3 Ml Vial) 0 unit SUBCUT QIDACHS [facility]; Protocol Last Admin: 10/02/22 12:29 Dose: Not Given Documented By: YUKI Non-Admin Reason: No Insulin Coverage Levothyroxine Sodium 112 mcg/ (Levothyroxine Sodium 25 mcg) 137 mcg PO DAILY@0600 [facility] Last Admin: 10/02/22 05:58 Dose: 137 mcg Documented By: UMAIR Lidocaine (Lidocaine 4 % Patch Adh..Patch) 1 patch TRANSDERMA DAILY PRN PRN Reason: Pain Magnesium Hydroxide (Milk Of Magnesia 30 Ml Oral.Susp) 30 ml PO BID PRN PRN Reason: Constipation Omeprazole (Omeprazole 40 Mg Capsule.) 40 mg PO DAILY@0630 [facility] Last Admin: 10/02/22 05:58 Dose: 40 mg Documented By: UMAIR Pharmacy Consult (Consult Rx Vancomycin Dosing) 1 each MISCELLANE DAILY PRN PRN Reason: Consult order Rivaroxaban (Rivaroxaban 20 Mg Tablet) 20 mg PO DAILY [facility] Last Admin: 10/02/22 08:48 Dose: 20 mg Documented By: YUKI Sodium Chloride (0.9 % Sodium Chloride Flush 3 Ml Syringe) 3 ml IVFLUSH QSHIFT [facility] Last Admin: 10/02/22 08:48 Dose: 3 ml Documented By: YUKI Thiamine HCl (Thiamine Hcl 100 Mg Tablet) 100 mg PO DAILY [facility] Last Admin: 10/02/22 08:48 Dose: 100 mg Documented By: YUKI Tramadol HCl (Tramadol Hcl 50 Mg Tablet) 50 mg PO Q12H PRN PRN Reason: severe pain Last Admin: 10/01/22 01:36 Dose: 50 mg Documented By: SEXK Labs 09/28/22 06:23 10/02/22 06:07 Labs: Laboratory Results - last 24 hr 10/01/22 10/01/22 10/02/22 17:20 23:47 06:03 Estim Creat Clear Calc Estimated GFR POC Glucose 155 H 125 H 93 10/02/22 10/02/22 06:07 11:35 Estim Creat Clear Calc 67.9 Estimated GFR > 60 POC Glucose 95 Microbiology Microbiology Results: Microbiology 09/26/22 12:08 Blood Culture - Final Blood - Venous No growth after 5 days. 09/26/22 12:06 Blood Culture - Final Blood - Venous No growth after 5 days. Assessment and Plan (1) Metabolic encephalopathy: Status: Acute (2) Permanent atrial fibrillation: Status: Acute Plan 77 old female with a PMH significant for AFib on Xarelto, non insulin-dependent diabetes, HTN, HLD, hypothyroidism, restless leg syndrome, asthma, here with frequent falls, AFIB with RVR and metablic encephalopathy. Appreciate psych input. .. Patient extremely restless on floor in restraints; Haldol Ativan with minimal effect. Noted to be on tramadol chronically question withdrawal. Responded to IV MSO4 1. Restlessness/agitation -all have resolved. Likely secondary to confusion related to medicines -mentation clear no acute issues 2.Permanent AFIB with RVR -acceptable control on p.o. Cardizem -adjust as indicated -Xarelto . 3.Encephalopathy -resolved 4.Swz-ybgfynr-cmfovygvp diabetes type 2 -acceptable control on current therapies. -lispro correctional scale -adjust as indicated Full Code Xarelto Requires ongoing hospitalization pending safe placement Time Spent With Patient Time: Total time managing care of this patient today ____ minutes. Quality Stroke Does the patient have a stroke diagnosis?: No VTE Prior VTE?: No VTE Risk Level:: Medical - moderate - high VTE Device Contraindication: Treatment Not Indicated VTE Drug Contraindication: N/A - Med Ordered
[2022-10-02 14:31] VITALS: BP 153/70; PULSE 82; O2SAT 94
[2022-10-02] MEDS: Milk of Magnesia 30 ML ORAL.SUSP PO (14:32)
[2022-10-02 16:00] VITALS: BP 169/79; PULSE 89; RESP 20; TEMP 36.2; O2SAT 98
[2022-10-02 17:30] LABS: Glucose, Whole Blood 121 mg/dL (60-115)
[2022-10-02 19:18] LABS: Nicotinamide 24 ng/mL; Vit B3 - Nicotinic Acid <20 ng/mL
[2022-10-02 19:35] VITALS: BP 122/79; PULSE 84; RESP 20; TEMP 37; O2SAT 95
[2022-10-02] MEDS: traZODone HCL 50 MG TABLET PO (21:48)
[2022-10-02 22:15] LABS: Glucose, Whole Blood 133 mg/dL (60-115)
[2022-10-02 22:16] LABS: Glucose, Whole Blood 133 mg/dL (60-115)
[2022-10-03] VITALS (7 sets, daily range): BP systolic 110–155; BP diastolic 56–92; PULSE 60–124; RESP 15–20; TEMP 36.6–37.2; O2SAT 95–100; BMI 29.6
[2022-10-03] MEDS: Omeprazole 40 MG CAPSULE.DR PO (05:47)
[2022-10-03] MEDS: Levothyroxine Sodium 112 MCG, Levothyroxine Sodium 25 MCG 137 MCG PO (05:47)
[2022-10-03 06:40] LABS: Creatinine Clr Calc Pharmacy 66.4; Estimated Glomerular Filt Rate > 60
[2022-10-03 07:11] LABS: Glucose, Whole Blood 100 mg/dL (60-115)
[2022-10-03] MEDS: dilTIAZem HCL CD 180 MG CAP.ER.24H PO (09:15)
[2022-10-03] MEDS: Rivaroxaban 20 MG TABLET PO (09:16)
[2022-10-03] MEDS: 0.9 % Sodium Chloride Flush 3 ML SYRINGE IVFLUSH ×2 (09:16→17:34)
[2022-10-03] MEDS: Thiamine HCL 100 MG TABLET PO (09:17)
[2022-10-03 11:04] LABS: Glucose, Whole Blood 182 mg/dL (60-115)
[2022-10-03] MEDS: Insulin Lispro 100 UNIT/ML 3 ML VIAL SUBCUT ×2 (12:22→20:26)
--- NOTE | 2022-10-03 12:53 | P.PNIM_ITS ---
Subjective Subjective Date of Service: 10/03/22 Interval History: Doing well overall. Requesting rehab Review of Systems Denies chest pain Denies shortness of breath Denies nausea vomiting diarrhea Denies fever chills Physical Exam Vital Signs: Vital Signs: Last Vital Signs Temp 97.9 F 10/03/22 11:09 Pulse 91 10/03/22 11:09 Resp 20 10/03/22 11:09 BP 110/66 10/03/22 11:09 Pulse Ox 99 10/03/22 11:09 O2 Del Method Room Air 10/03/22 11:09 O2 Flow Rate 2 09/26/22 18:00 BMI result Body Mass Index 29.6 Const: Other: Awake alert ; clear in cohesive thought pattern lying peacefully in bed Resp: Other: Clear to auscultation bilaterally no rales rhonchi or wheezes Cardio: Other: No S4; positive S1-S2; no S3 murmurs rubs or gallops GI: Other: Soft nontender nondistended with normoactive bowel sounds Extrem: Other: No edema. Restless legs Objective Data Active Medications Acetaminophen (Acetaminophen Supp 650 Mg Supp.Rect) 650 mg MI Q6H PRN PRN Reason: Fever >100.4 Last Admin: 09/26/22 22:19 Dose: 650 mg Documented By: NERIS Albuterol Sulfate (Albuterol Sulfate 90 Mcg 8 Gm Inhaler) 2 puff INHALE Q4H PRN PRN Reason: dyspnea Dextrose (Dextrose 50 % 25 Gm/50 Ml Syringe) 25 gm IVPUSH Q15M PRN; Protocol PRN Reason: per Hypoglycemia Standing Ord. Dextrose (Dextrose 50 % 25 Gm/50 Ml Syringe) 25 gm IVPUSH Q15M PRN; Protocol PRN Reason: per Hypoglycemia Standing Ord. Diltiazem HCl (Diltiazem Hcl Cd 180 Mg Cap.Er.24h) 180 mg PO DAILY RAMESH; Protocol Last Admin: 10/03/22 09:15 Dose: 180 mg Documented By: CTORRNayely Glucose (Glucose Gel 15 Gm Gel..Gram.) 15 gm PO Q15M PRN; Protocol PRN Reason: per Hypoglycemia Standing Ord. Glucose (Glucose Gel 15 Gm Gel..Gram.) 15 gm PO Q15M PRN; Protocol PRN Reason: per Hypoglycemia Standing Ord. Insulin Human Lispro (Insulin Lispro 100 Unit/Ml 3 Ml Vial) 0 unit SUBCUT 0000,0600,1200,1800 [facility]; Protocol Last Admin: 10/03/22 12:24 Dose: Not Given Documented By: YUKI Non-Admin Reason: already given Insulin Human Lispro (Insulin Lispro 100 Unit/Ml 3 Ml Vial) 0 unit SUBCUT Q IDACHS [facility]; Protocol Last Admin: 10/03/22 12:22 Dose: 2 unit Documented By: YUKI Levothyroxine Sodium 112 mcg/ (Levothyroxine Sodium 25 mcg) 137 mcg PO DAILY@0600 [facility] Last Admin: 10/03/22 05:47 Dose: 137 mcg Documented By: JOSE Lidocaine (Lidocaine 4 % Patch Adh..Patch) 1 patch TRANSDERMA DAILY PRN PRN Reason: Pain Magnesium Hydroxide (Milk Of Magnesia 30 Ml Oral.Susp) 30 ml PO BID PRN PRN Reason: Constipation Last Admin: 10/02/22 14:32 Dose: 30 ml Documented By: YUKI Omeprazole (Omeprazole 40 Mg Capsule.Dr) 40 mg PO DAILY@0630 [facility] Last Admin: 10/03/22 05:47 Dose: 40 mg Documented By: JOSE Pharmacy Consult (Consult Rx Vancomycin Dosing) 1 each MISCELLANE DAILY PRN PRN Reason: Consult order Rivaroxaban (Rivaroxaban 20 Mg Tablet) 20 mg PO DAILY [facility] Last Admin: 10/03/22 09:16 Dose: 20 mg Documented By: YUKI Sodium Chloride (0.9 % Sodium Chloride Flush 3 Ml Syringe) [facility] Last Admin: 10/03/22 09:16 Dose: 3 ml Documented By: YUKI Thiamine HCl (Thiamine Hcl 100 Mg Tablet) 100 mg PO DAILY [facility] Last Admin: 10/03/22 09:17 Dose: 100 mg Documented By: YUKI Tramadol HCl (Tramadol Hcl 50 Mg Tablet) 50 mg PO Q12H PRN PRN Reason: severe pain Last Admin: 10/01/22 01:36 Dose: 50 mg Documented By: SEXK Labs 09/28/22 06:23 10/03/22 06:02 Labs: Laboratory Results - last 24 hr 09/27/22 10/02/22 10/02/22 08:53 17:20 20:28 Estim Creat Clear Calc Estimated GFR POC Glucose 121 H 133 H Nicotinic Acid <20 Nicotinamide 24 10/02/22 10/03/22 10/03/22 20:28 06:02 07:07 Estim Creat Clear Calc 66.4 Estimated GFR > 60 POC Glucose 133 H 100 Nicotinic Acid Nicotinamide 10/03/22 10:53 Estim Creat Clear Calc Estimated GFR POC Glucose 182 H Nicotinic Acid Nicotinamide Assessment and Plan (1) Permanent atrial fibrillation: Status: Acute (2) Metabolic encephalopathy: Status: Acute Plan 77 old female with a PMH significant for AFib on Xarelto, non insulin-dependent diabetes, HTN, HLD, hypothyroidism, restless leg syndrome, asthma, here with frequent falls, AFIB with RVR and metablic encephalopathy. Appreciate psych input. .. Patient extremely restless on floor in restraints; Haldol Ativan with minimal effect. Noted to be on tramadol chronically question withdrawal. Responded to IV MSO4 1. Restlessness/agitation -all have resolved. Likely secondary to confusion related to medicines -mentation clear no acute issues 2.Permanent AFIB with RVR -acceptable control on p.o. Cardizem -adjust as indicated -Xarelto . 3.Encephalopathy -resolved 4.Jaj-qpjaupk-sudbccvio diabetes type 2 -acceptable control on current therapies. -lispro correctional scale -adjust as indicated Full Code Xarelto Requires ongoing hospitalization pending safe placement Time Spent With Patient Time: Total time managing care of this patient today ____ minutes. Quality Stroke Does the patient have a stroke diagnosis?: No VTE Prior VTE?: No VTE Risk Level:: Medical - moderate - high VTE Device Contraindication: Treatment Not Indicated VTE Drug Contraindication: N/A - Med Ordered
[2022-10-03 16:02] LABS: Glucose, Whole Blood 110 mg/dL (60-115)
[2022-10-03 19:46] LABS: Glucose, Whole Blood 179 mg/dL (60-115)
[2022-10-03] MEDS: traMADoL HCL 50 MG TABLET PO (20:24)
[2022-10-04 03:37] VITALS: BP 118/66; PULSE 93; RESP 15; TEMP 36.6; O2SAT 95
[2022-10-04 06:23] LABS: Creatinine Clr Calc Pharmacy 69.5; Estimated Glomerular Filt Rate > 60
[2022-10-04 07:34] VITALS: BP 137/72; PULSE 93; RESP 20; TEMP 36.4; O2SAT 97
[2022-10-04 07:59] LABS: Glucose, Whole Blood 126 mg/dL (60-115)
[2022-10-04] MEDS: Omeprazole 40 MG CAPSULE.DR PO (08:05)
[2022-10-04] MEDS: Levothyroxine Sodium 112 MCG, Levothyroxine Sodium 25 MCG 137 MCG PO (08:05)
[2022-10-04] MEDS: 0.9 % Sodium Chloride Flush 3 ML SYRINGE IVFLUSH (08:49)
[2022-10-04] MEDS: Rivaroxaban 20 MG TABLET PO (08:49)
[2022-10-04] MEDS: dilTIAZem HCL CD 180 MG CAP.ER.24H PO (08:49)
[2022-10-04] MEDS: Thiamine HCL 100 MG TABLET PO (08:49)
--- NOTE | 2022-10-04 10:50 | MHC.CM.PN ---
P.T. RECOMMENDS NO THERAPY AT THIS TIME AND THAT PT IS AT BASELINE, NO STR OR HOME SERVICES RECOMMENDED, CM MET W/PT TO LET HER KNOW AND PT REPORTS SHE IS HAPPY TO GO HOME AND THAT HER [employer] WILL TRANSPORT. PT REPORTS SHE WILL RETURN TO HER OWN APARTMENT NOT THE [facility] AND WILL RESUME [employer] HRS AND [facility] FOR SN/OT/PT.
[2022-10-04 11:30] LABS: Glucose, Whole Blood 76 mg/dL (60-115)
[2022-10-04 11:34] VITALS: BP 122/68; PULSE 70; RESP 18; TEMP 36.8; O2SAT 98
--- NOTE | 2022-10-04 12:47 | PM.DS ---
DS: Providers Provider Date of Service: 10/04/22 Date of admission: 09/26/22 09:40 Primary care physician: Jo Blackwell MD Consults: 09/28/22 09:44 Consult to Psychiatry Stat Consulting Provider: Psych Covering Reason for consultation: psychotic Has provider been notified: Yes DS: Diagnosis Discharge Diagnosis (1) Permanent atrial fibrillation: Status: Acute (2) Metabolic encephalopathy: Status: Acute DS: Summary Hospital Course Hospital Course: history of presenting illness: Date of Service: 09/26/22 Chief Complaint: Falls 77 old female with history Fibromyalgia take tramadol,? AFib anticoagulated with Xarelto, non insulin-dependent diabetes, HTN, HLD, hypothyroidism, restless leg syndrome, asthma, frequent? falls? who presents to ED with yet another fall. She was at her freind's kitchen? when she fell unsteady on her feet then fell, there was no LOC, no dizziness, or chest. She did strike her head but CT head is negative, no joint injuries.? She is frequent seen in ED for falls, most recently on 09/07 and 09/13 and multiple other occasions before that. In the? ED found to be in AFIB with RVR with heart rate over 130 and given IV cardizem. She was further noted to be very agiated, restless, thrashing all over the place and was? given haldol, ketamine and Ativan. Tox screen is positive for Fentanyl. hospital course 77 old female with a PMH significant for AFib on Xarelto, non insulin-dependent diabetes, HTN, HLD, hypothyroidism, restless leg syndrome, asthma, here with frequent falls, patient diagnosed to have AFIB with RVR and metablic encephalopathy.? # acute encephalopathy resolved patient noted to have significant restlessness and agitation, patient also symptoms resolved after home medications including Neurontin, Lyrica were held ,so likely patient confusion was related to polypharmacy patient denies leg pain or restlessness in last couple days is being followed by neurologist Dr. Cleveland recommend to have outpatient follow-up with him, will discontinue Neurontin and Lyrica, patient evaluated by psych was initially treated with Haldol, Ativan and morphine. Recommend to use as needed Ultram. # Atrial fibrillation with RVR patient was admitted with rapid ventricular response treated with IV Cardizem heart rate improved subsequently transition back to home medication Cardizem recommend to continue bisoprolol and Eliquis #.Pjv-hlsvvqk-tbbsvixuh diabetes type 2 continue home medications # in regard to constipation Linzess was held patient placed on milk of Mag 30 mL as needed with good response patient wishes to continue the same upon discharge. Time Spent with Patient Time attestation: Total time managing care of this patient today ____ minutes. Discharge coordination time: Greater than 30 minutes Quality: Safe Use of Opioids Does Pt have an Active Cancer Diagnosis on the Problem List?: No Quality: Stroke Does the patient have a stroke diagnosis?: No Physical Exam Vital Signs: Vital Signs: Last Vital Signs Temp 98.3 F 10/04/22 11:34 Pulse 70 10/04/22 11:34 Resp 18 10/04/22 11:34 BP 122/68 10/04/22 11:34 Pulse Ox 98 10/04/22 11:34 O2 Del Method Room Air 10/04/22 11:34 O2 Flow Rate 2 09/26/22 18:00 BMI result Body Mass Index 29.6 Const: Other: General Awake alert x3, in no acute distress. Neck supple no JVD. CVS regular rate rhythm, Respiratory lungs clear to auscultation, no respiratory distress, no wheeze, no rhonchi. Gastrointestinal abdomen soft, non tender, bowel sounds audible, no guarding , no rigidity. Extremities no edema. Neuro nonfocal psych appropriate affect skin no rash DS: Data Data Completed and Pending Completed studies during hospitalization [Text1]: Procedures Drainage of Spinal Canal, Percutaneous Approach, Diagnostic (07/24/22) Fluoroscopy of Spinal Cord (07/24/22) Labs on day of discharge: Laboratory Results - last 24 hr 10/03/22 10/03/22 10/04/22 15:58 19:41 06:01 Creatinine 0.63 Estim Creat Clear Calc 69.5 Estimated GFR > 60 POC Glucose 110 179 H 10/04/22 10/04/22 07:28 11:18 Creatinine Estim Creat Clear Calc Estimated GFR POC Glucose 126 H 76 Discharge Plan Discharge Anticipated Discharge Date/Time: 10/04/22 11:30 Patient Disposition: Home Health Service Discharge Diagnosis: atrial fibrillation with RVR Referrals: [facility] [Other] - 1 Week (fdc, home OT/PT) Jo Sanchez MD [Primary Care Provider] - 1 Week Discharge Medications: New magnesium hydroxide [Milk of Magnesia] 400 mg/5 mL Suspension 30 ml PO BID PRN (Reason: Constipation) Qty: 355 0RF Continued (DME) blood-glucose meter [FreeStyle Lite Meter] Kit See Rx Instructions miscellaneous .MEDSUPPLY Qty: 1 0RF Rx Instructions: 3 times a day (DME) lancets [FreeStyle Lancets] 28 gauge misc See Rx Instructions .MEDSUPPLY Qty: 100 8RF Rx Instructions: Twice a day (DME) FreeStyle Lite Strips Strip See Rx Instructions .MEDSUPPLY Qty: 100 6RF Rx Instructions: 2 times a day levothyroxine 137 mcg tablet 137 mcg PO DAILY@0600 omeprazole 20 mg capsule,delayed release(DR/EC) 20 mg PO DAILY@0630 albuterol sulfate [Ventolin HFA] 90 mcg/actuation HFA aerosol inhaler 2 puff INHALATION Q4-6H PRN (Reason: dyspnea) bisoprolol fumarate 5 mg Tablet 5 mg PO DAILY Qty: 30 0RF diltiazem HCl 120 mg capsule,extended release 24hr 120 mg PO DAILY rosuvastatin 5 mg tablet 5 mg PO BEDTIME Januvia 100 mg tablet 100 mg PO QAM tramadol 50 mg tablet 50 mg PO Q12H PRN (Reason: severe pain) lidocaine 5 % adhesive patch,medicated 1 patch topical DAILY PRN (Reason: Pain) Rx Instructions: on for 12 hours, off for 12 hours diltiazem HCl 60 mg capsule,extended release 12 hr 60 mg PO QAM (DME) [facility] See Rx Instructions .MEDSUPPLY Qty: 1 0RF Rx Instructions: Walker without wheels montelukast 10 mg tablet 10 mg PO BEDTIME (DME) blood sugar diagnostic Strip See Rx Instructions Not Applicable BID Qty: 10 Rx Instructions: As directed cholecalciferol (vitamin D3) 50 mcg (2,000 unit) capsule 50 mcg PO DAILY 90 Days Qty: 90 2RF sucralfate 100 mg/mL suspension 10 ml PO BEDTIME Qty: 400 3RF Xarelto 20 mg tablet 20 mg PO DAILY@1800 Discontinued clonazepam 0.125 mg tablet,disintegrating 0.125 - 0.25 mg PO BEDTIME PRN (Reason: Restless Leg(S)) gabapentin 300 mg capsule 300 mg PO QD-BID Myrbetriq 25 mg tablet extended release 24 hr 25 mg PO BEDTIME Fiber Laxative(methylcellulos) 500 mg tablet 500 mg PO DAILY pregabalin 75 mg capsule 75 mg PO BID Linzess 72 mcg capsule 72 mcg PO DAILY Qty: 30 2RF ezetimibe 10 mg tablet 10 mg PO DAILY Discharge Orders: Discharge Order (Routine); Ordered 10/04/22 Ordered By: Loren Zavala Diet: Diabetic diet Activity on Discharge: As tolerated Stand Alone Forms: Patient Portal Discharge page Care Plan Goals: agitation/ confusion resolved felt to be related to polypharmacy, Neurontin, Lyrica discontinued, patient restlessness and confusion resolved recommend to follow up with Neurology for restless legs. Health Concerns: diabetes mellitus /hyperlipidemia/ hypothyroidism recommend to follow diabetic diet monitor blood sugars Plan of Treatment: outpatient follow-up with primary care physician and Neurology recommend to call for appointment Assessment: as above
--- NOTE | 2022-10-04 14:03 | MHC.CM.PN ---
CM CONTACTED [facility] TO CONFIRM PT IS ACTIVE W/THEIR SERVICE WHICH PT IS, [facility] REQUESTED CM FAX DC SUMMARY TO [phone], DC SUMMARY FAXED.
[2022-10-15 12:13] LABS: Fentanyl, Ur NEGATIVE
== END 2022-10-04 14:43 | disposition home health service (06) | DRG 308 ==
LOC: HO.ED 06:27 → HO.EDOVER 09:45 → HO.ICU 15:04 → HO.IMC 09-28 03:26
PROVIDERS: Hospitalist; Internal Medicine Cardiovascular Disease; Physician Assistant Medical; Admitting Provider Internal Medicine; Emergency Provider Internal Medicine; PCP Student in an Organized Health Care Education/Training Program; Visit Provider Hospitalist
DX: I48.21 Permanent atrial fibrillation (principal); G92.8 Other toxic encephalopathy; J45.40 Moderate persistent asthma, uncomplicated; E66.9 Obesity, unspecified; Z68.29 Body mass index [BMI] 29.0-29.9, adult; E78.5 Hyperlipidemia, unspecified; K59.00 Constipation, unspecified; E11.9 Type 2 diabetes mellitus without complications; E06.3 Autoimmune thyroiditis; G25.81 Restless legs syndrome; F41.8 Other specified anxiety disorders; Z78.1 Physical restraint status; Z79.01 Long term (current) use of anticoagulants; Z79.890 Hormone replacement therapy; Z79.899 Other long term (current) drug therapy
CPT/HCPCS: 36415; 36600; 70450; 70553; 71045; 72125; 74018; 80053; 80202; 80307; 80354; 81001; 81003; 82140; 82533; 82565; 82607; 82746; 82803; 82947; 84146; 84443; 84481; 84591; 85025; 85652; 86376; 86617; 86618; 86753; 86800; 87040; 93005; 95816; 97163; 99285; A9585; C1758; J0133; J0696; J1200; J1885; J1953; J2060; J2250; J2270; J2405; J2930; J3010; J3370; J3371; J3411

== ENCOUNTER → 2022-09-26 09:40 | Outpatient (BNV) | payer OTHER, SELFPAY | PROVIDERS: Admitting Provider Internal Medicine; Emergency Provider Internal Medicine; PCP Student in an Organized Health Care Education/Training Program; Visit Provider Social Worker | DX: G93.41 Metabolic encephalopathy (principal) | CPT/HCPCS: 99232 ==

== ENCOUNTER → 2022-09-26 09:40 | Outpatient (BNV) | payer OTHER, SELFPAY | PROVIDERS: Admitting Provider Internal Medicine; Emergency Provider Internal Medicine; Visit Provider Internal Medicine Cardiovascular Disease | DX: R56.9 Unspecified convulsions (principal); I48.21 Permanent atrial fibrillation; I48.91 Unspecified atrial fibrillation; R29.6 Repeated falls; G92.8 Other toxic encephalopathy; I10 Essential (primary) hypertension; J45.40 Moderate persistent asthma, uncomplicated; E11.618 Type 2 diabetes mellitus with other diabetic arthropathy; E06.3 Autoimmune thyroiditis; E66.3 Overweight; F41.8 Other specified anxiety disorders; F11.20 Opioid dependence, uncomplicated | CPT/HCPCS: 99291 ==

== ENCOUNTER → 2022-09-26 09:40 | Outpatient (BNV) | payer OTHER, SELFPAY | PROVIDERS: Admitting Provider Internal Medicine; Emergency Provider Internal Medicine; Visit Provider Internal Medicine | DX: I48.21 Permanent atrial fibrillation (principal); G93.41 Metabolic encephalopathy | CPT/HCPCS: 99223; 99233; 99239; 99499 ==

== ENCOUNTER 2022-10-13 10:37 | Outpatient (REF) | payer OTHER, SELFPAY ==
--- NOTE | ~2022-10-13 | MM_ITS ---
EXAMINATION: MM SCREENING DIGITAL BREAST TOMOSYNTHESIS, BILATERAL CLINICAL INFORMATION: Screening. Asymptomatic. COMPARISON: Mammography: This study is compared with prior exams dating back to 2019. TECHNIQUE: Digital breast tomosynthesis is performed in both the craniocaudal and mediolateral oblique views along with computer-aided detection (CAD). Synthesized 2D images are generated from the tomosynthesis. FINDINGS: The breasts are heterogeneously dense, which may obscure small masses (ACR BI-RADS breast composition Category c). There are no significant masses, abnormal calcifications, or other abnormalities. Scattered benign calcifications are present in each breast. MM/MM tomosynthesis screening BI IMPRESSION: No mammographic evidence of malignancy. ASSESSMENT: BI-RADS BI-RADS 2 - Benign Findings RECOMMENDATION: Routine annual mammography screening. 1 year F/U This examination should not preclude the clinical evaluation of a suspicious palpable abnormality. This patient's information was entered into a reminder system with a target due date for their next mammogram.
--- NOTE | ~2022-10-13 | MM_ITS ---
EXAMINATION: BONE DENSITOMETRY CLINICAL INDICATION: Asymptomatic menopausal state. COMPARISON: Previous BD dated 07/31/2020 and baseline BD dated 01/12/2018. TECHNIQUE: Using a [employer] DXA System (software version: 13.1) manufactured by [employer], dual-energy x-ray absorptiometry was performed of the lumbar spine and left hip. The images are of good technical quality. Summary results are attached. FINDINGS: LEFT FEMUR, NECK: Current: BMD 0.723 g/cm2, Z-score -0.4, T-score -2.3, osteopenia. Prior: BMD 0.737 g/cm2. Baseline: BMD 0.742 g/cm2. LEFT FEMUR, TOTAL: Current: BMD 0.852 g/cm2, Z-score 0.4, T-score -1.2, osteopenia, 3.2% decrease from previous, 4.7% decrease from baseline (<5% change is not significant). Prior: BMD 0.880 g/cm2. Baseline: BMD 0.894 g/cm2. AP SPINE L1-L2 (excluding L3 and L4): The data of L1-L4 has been changed to exclude the L3 and L4 vertebral bodies, because metallic hardware at these levels may cause overestimation of lumbar spine density. Current: BMD 1.248 g/cm2, Z-score 2.3, T-score 0.7, normal, 1.3% increase from previous, 4.4% increase from baseline (<5% change is not significant). Prior: BMD 1.232 g/cm2. Baseline: BMD 1.195 g/cm2. IDENTIFIED RISK FACTORS: Menopause, hysterectomy, bilateral oophorectomy, history of fracture (adult), recurrent falls. HISTORY OF FRACTURE: Other. MEDICATIONS: Calcium supplements or multivitamin, vitamin D. MM/XR DEXA axial skeleton IMPRESSION: 1. DIAGNOSIS: Osteopenia based on the lowest T-score value of -2.3 in the femoral neck applying World Health Organization criteria. 2. 10-YEAR FRACTURE RISK PREDICTION, FRAX: Major osteoporotic fracture (clinical spine, forearm, hip or shoulder) 12.9%. Hip fracture 3.4%. 3. Treatment Recommendations: NOF guidelines recommend consideration for treatment in postmenopausal women and men age 50 and older presenting with the following: -A hip or vertebral (clinical or morphometric) fracture. -T-score less than or equal to -2.5 at the femoral neck or spine after appropriate evaluation to exclude secondary causes. -Low bone mass at the hip or spine and a 10-year fracture probability by FRAX of greater than or equal to 3% for hip fracture or greater than or equal to 20% for major osteoporotic fracture based on the [place] adapted WHO algorithm. 4. Other Recommendations: All treatment decisions require clinical judgment and consideration of individual patient factors, including patient preferences, comorbidities, previous drug use, risk factors not captured in the FRAX model (e.g. frailty, falls, vitamin D deficiency, increased bone turnover, interval significant decline in bone density) and possible under or overestimation of fracture risk by FRAX. Additional medical evaluation for secondary cause of low bone mineral density may be appropriate. FUTURE SCAN RECOMMENDATION: People with diagnosed cases of osteoporosis or at high risk for fracture should have regular bone mineral density tests. For patients eligible for Medicare, routine testing is allowed once every 2 years. The testing frequency can be increased to one year for patients who have rapidly progressing disease, those who are receiving or discontinuing medical therapy to restore bone mass, or have additional risk factors.
== END 2022-10-13 10:38 | disposition home or self-care (01) ==
LOC: HO.MAMMO 10:37
PROVIDERS: PCP Student in an Organized Health Care Education/Training Program; Visit Provider Student in an Organized Health Care Education/Training Program
DX: Z12.31 Encounter for screening mammogram for malignant neoplasm of breast (principal); Z13.820 Encounter for screening for osteoporosis; Z78.0 Asymptomatic menopausal state
CPT/HCPCS: 77063; 77067; 77080

== ENCOUNTER → 2022-10-13 11:00 | Outpatient (BNV) | payer OTHER, SELFPAY | PROVIDERS: PCP Student in an Organized Health Care Education/Training Program; Visit Provider Radiology Diagnostic Radiology | DX: Z12.31 Encounter for screening mammogram for malignant neoplasm of breast (principal) | CPT/HCPCS: 77063; 77067; 77080 ==

== ENCOUNTER 2022-10-22 03:46 | Emergency (ER) | payer OTHER, SELFPAY ==
--- NOTE | 2022-10-22 | ECG_ITS ---
Test Reason : dizziness Blood Pressure : / mmHG Vent. Rate : 089 BPM Atrial Rate : 000 BPM P-R Int : 000 ms QRS Dur : 068 ms QT Int : 348 ms P-R-T Axes : 000 046 051 degrees QTc Int : 423 ms Atrial fibrillation Abnormal ECG When compared with ECG of 26-SEP-2022 05:03, Vent. rate has decreased Referred By: Generic ED Physician Electronically Signed By:ARIAN MACIAS
--- NOTE | ~2022-10-22 | XR_ITS ---
EXAMINATION: XR KNEE, RIGHT CLINICAL INFORMATION: Pain COMPARISON: None available. TECHNIQUE: Four views of the right knee. FINDINGS: The bone mineralization is normal. There is mild to moderate medial and mild lateral knee degenerative change with loss of joint space, subchondral sclerosis and osteophyte formation. There is a minimally displaced oblique fracture through the patella. There is a moderate joint effusion. There is mild prepatellar soft tissue swelling. XR/XR knee RT 3V IMPRESSION: Minimally displaced fracture through the patella associated with a moderate joint effusion. Medial and lateral knee degenerative change.
[2022-10-22 03:51] VITALS: BP 149/65; BP 166/68; PULSE 88; PULSE 91; RESP 20; TEMP 37; O2SAT 97; O2SAT 99; BMI 30.7
[2022-10-22 04:07] LABS: MANUAL DIFF FLAG NO
[2022-10-22 04:08] LABS: Basophils Percent Auto 0.5 % (0-2); Eosinophils Absolute Auto 0.2 X10*3/uL (0.0-0.4); Eosinophils Percent Auto 2.1 % (0-4); Hematocrit 37.9 % (37.0-47.0); Hemoglobin 12.4 g/dl (12.0-16.0); Imm Gran Abs Auto 0.02 X10*3/uL (0.00-0.03); Imm Gran Pct Auto 0.3 % (0.0-0.4); Lymphocytes Absolute Auto 1.3 X10*3/uL (1.2-4.9); Mean Corpuscular HGB Conc 32.7 g/dl (31.0-35.0); Mean Corpuscular Hemoglobin 28.2 pg (27.0-33.0); Mean Corpuscular Volume 86.3 fL (80.0-98.0); Mean Platelet Volume 10.5 fL (9.4-12.3); Monocytes Percent Auto 13.5 % (2-11); Neutrophils Absolute Auto 4.8 x10*3/uL (2.0-8.3); Neutrophils Percent Auto 65.6 % (45-73); Platelet Count 256 X10*3/uL (160-400); Red Blood Count 4.39 X10*6/uL (4.20-5.50); Red Cell Distribution Width 13.8 % (11.0-16.0); White Blood Count 7.3 X10*3/uL (4.8-10.8)
--- NOTE | 2022-10-22 04:14 | MHC.EDTECH ---
ekg obtained and pt placed on monitor.
[2022-10-22 04:19] LABS: Anion Gap 12 (12-20); Blood Urea Nitrogen 11 mg/dL (9-16); Calcium 9.1 mg/dL (8.4-10.2); Carbon Dioxide 26 mmol/L (22-29); Chloride 105 mmol/L (96-108); Creatinine Clr Calc Pharmacy 61.1; Estimated Glomerular Filt Rate > 60; Glucose Random 126 mg/dL (60-115); Potassium 3.8 mmol/L (3.3-5.1); Sodium 139 mmol/L (135-145)
--- NOTE | 2022-10-22 04:27 | ED.FALL ---
HPI - Fall General Chief Complaint: Fall Stated Complaint: fall with knee pain Time Seen by Provider: 10/22/22 04:08 Source: patient Mode of arrival: ambulatory Limitations: no limitations History of Present Illness HPI Narrative: Patient history of paroxysmal AFib with Xarelto been sneezing for last 2 days diagnosed with COVID felt dizzy and fell on her knee landed on her right side being more pain in the right knee cap with swelling no head injury no loss of conscious no other injuries no loss of consciousness no other injury no shortness of breath no cough no chest pain Related Data Home Medications Medication Instructions Recorded Confirmed blood sugar diagnostic #10 ea 11/23/19 09/02/22 montelukast 10 mg tablet 10 mg PO BEDTIME 11/23/19 09/26/22 rivaroxaban 20 mg tablet (Xarelto) 20 mg PO DAILY@1800 06/17/22 09/26/22 albuterol sulfate 90 mcg/actuation 2 puff inhalation Q4-6H PRN dyspnea 07/24/22 09/26/22 aerosol inhaler (Ventolin HFA) levothyroxine 137 mcg tablet 137 mcg PO DAILY@0600 07/24/22 09/26/22 omeprazole 20 mg capsule,delayed 20 mg PO DAILY@0630 07/24/22 09/26/22 release diltiazem HCl 120 mg 120 mg PO DAILY 09/14/22 09/26/22 capsule,extended release 24 hr rosuvastatin 5 mg tablet 5 mg PO BEDTIME 09/14/22 09/26/22 sitagliptin phosphate 100 mg 100 mg PO QAM 09/14/22 09/26/22 tablet (Januvia) diltiazem HCl 60 mg 60 mg PO QAM 09/26/22 capsule,extended release 12 hr lidocaine 5 % topical patch 1 patch topical DAILY PRN Pain 09/26/22 09/26/22 tramadol 50 mg tablet 50 mg PO Q12H PRN severe pain 09/26/22 09/26/22 Previous Rx's Medication Instructions Recorded walker #1 ea 02/29/20 blood-glucose meter (FreeStyle #1 ea 06/19/20 Lite Meter kit) lancets 28 gauge (FreeStyle #100 ea 06/19/20 Lancets) blood sugar diagnostic (FreeStyle #100 ea 11/12/21 Lite Strips) cholecalciferol (vitamin D3) 50 50 mcg PO DAILY 90 days #90 caps 11/27/21 mcg (2,000 unit) capsule bisoprolol fumarate 5 mg tablet 5 mg PO DAILY #30 tabs 07/29/22 sucralfate 100 mg/mL oral 10 ml PO BEDTIME #400 mL 09/21/22 suspension magnesium hydroxide 400 mg/5 mL 30 ml PO BID PRN Constipation #355 10/04/22 oral suspension (Milk of Magnesia) mL tramadol 50 mg tablet 50 mg PO Q6H PRN pain #20 tabs 10/22/22 Allergies Allergy/AdvReac Type Severity Reaction Status Date / Time aspirin [ASPIRIN] Allergy Severe ANAPHYLAXIS Verified 10/22/22 04:00 Seasonal Allergies Allergy Intermediate asthma, Verified 10/22/22 04:00 itch, rash Review of Systems Review of Systems: Yes all other systems are reviewed and are negative [facility] Past Medical History Medical History Permanent atrial fibrillation Abnormal nuclear stress test Restless leg syndrome CHF (congestive heart failure) DM2 (diabetes mellitus, type 2) Essential hypertension Autoimmune thyroiditis Overweight (BMI 25.0-29.9) Arthritis Depression with anxiety Diabetes Addiction, opium Moderate persistent asthma Vitamin D deficiency Hypertension Osteopenia Obesity (BMI 30-39.9) Dyslipidemia Hypothyroidism (acquired) Diabetes type 2, uncontrolled Surgical History Hx of cataract surgery Hx of arthroscopy of knee History of radical hysterectomy Family History Family History Father Diabetes Mother No problems noted. Son Substance use disorder Social History Social History Household Members: Unknown / Unable to assess Housing: Unknown / Unable to assess Do you presently have visiting nurse or other home services: Yes Unable to assess alcohol history related to: Unable to respond Alcohol intake: never Patient Tobacco Use Status: Former Tobacco user e-Cigarette/Vaping Use: Never Used Second Hand Smoke Exposure: No Substance Use Type: Unknown Advance Directives: Yes Advance Directives on File: Yes Advance Directives Date on File: 07/30/22 service: No Current occupational status: retired Physical Exam Vital Signs: Vital Signs: Last Vital Signs Temp 98.6 F 10/22/22 03:51 Pulse 88 10/22/22 03:51 Resp 20 10/22/22 03:51 BP 149/65 H 10/22/22 03:51 Pulse Ox 99 10/22/22 03:51 O2 Del Method Room Air 10/22/22 03:51 BMI result Body Mass Index 30.7 Appearance: Alert. Oriented X3. No acute distress. Eyes: PERRLA, No Nystagmus ENT: Pharynx normal. Oral Mucosa moist Neck: Normal inspection. Neck supple. CVS: Irregularly irregular heart rate Pulses normal. Respiratory: No respiratory distress. Equal air entry bilateral, no wheezing/rales/rhonchi Abdomen: Soft and nontender. Bowel sounds are present, Skin: Skin warm and dry. Normal skin color. Normal skin turgor. Extremities: No lower extremity edema. No calf tenderness diffuse tenderness right kneecap for slight effusion painful flexion left knee normal range of movement no bony tenderness Neuro: Oriented X 3. No motor deficit. No sensory deficit.No cerebellar signs , cranial nerves II-XII intact Medications Administered Discontinued Medications Generic Name Dose Route Start Last Admin Trade Name Freq PRN Reason Stop Dose Admin Oxycodone HCl 5 mg 10/22/22 04:42 10/22/22 04:47 Oxycodone Hcl Immed Release 5 Mg Tablet PO 10/22/22 04:43 5 mg ONCE ONE Administration Medical Decision Making Medical Decision Making [facility] Narrative: Patient's right patellar fracture after mechanical fall after she fell dizzy diagnosed with COVID yesterday no palpitation no syncope patient was given knee immobilizer and crutches will discharge patient home on pain management advised to follow with orthopedic 515 amPatient having difficulty in ambulation will get PT evaluation and rehab placement by case management if needed Lab Data [facility] Lab Attestation statement: I reviewed the patient's lab results. 10/22/22 04:03 10/22/22 04:03 Labs: Lab Results 10/22/22 Range/Units 04:03 WBC 7.3 (4.8-10.8) X10*3/uL RBC 4.39 (4.20-5.50) X10*6/uL Hgb 12.4 (12.0-16.0) g/dl Hct 37.9 (37.0-47.0) % MCV 86.3 (80.0-98.0) fL MCH 28.2 (27.0-33.0) pg MCHC 32.7 (31.0-35.0) g/dl RDW 13.8 (11.0-16.0) % Plt Count 256 (160-400) X10*3/uL MPV 10.5 (9.4-12.3) fL Immature Gran % (Auto) 0.3 (0.0-0.4) % Neut % (Auto) 65.6 (45-73) % Lymph % (Auto) 18.0 L (20-40) % [place] % (Auto) 13.5 H (2-11) % Eos % (Auto) 2.1 (0-4) % Baso % (Auto) 0.5 (0-2) % Lymph # (Auto) 1.3 (1.2-4.9) X10*3/uL [place] # (Auto) 1.0 (0.1-1.2) X10*3/uL Eos # (Auto) 0.2 (0.0-0.4) X10*3/uL Baso # (Auto) 0.0 (0.0-0.2) X10*3/uL Abs Immat Gran (auto) 0.02 (0.00-0.03) X10*3/uL Absolute Neuts (auto) 4.8 (2.0-8.3) x10*3/uL Absolute Nucleated RBC 0.000 (0.0-0.012) X10*3/uL Nucleated RBC % (auto) 0.0 (0.0-0.2) /100WBC Sodium 139 (135-145) mmol/L Potassium 3.8 (3.3-5.1) mmol/L Chloride 105 (96-108) mmol/L Carbon Dioxide 26 (22-29) mmol/L Anion Gap 12 (12-20) BUN 11 (9-16) mg/dL Creatinine 0.73 (0.5-1.4) mg/dL Estim Creat Clear Calc 61.1 Estimated GFR > 60 Random Glucose 126 H (60-115) mg/dL Calcium 9.1 (8.4-10.2) mg/dL Independent Interpretation I performed an independent interpretation of an: EKG and Plain X-Ray Interpretation: Irregular heart rate of 89 beats per minute atrial fibrillation no acute ischemic change Patellar fracture without significant displacement Discharge Plan Discharge Clinical Impression: Closed fracture of right patella Patient Disposition: Home, Self-Care Instructions: Patellar Fracture (ED) Additional Instructions: wear the knee immobilizer and use crutches for ambulation Pain medication as prescribed Follow with orthopedic Prescriptions: New tramadol 50 mg tablet 50 mg PO Q6H PRN (Reason: pain) Qty: 20 0RF No Action (DME) blood-glucose meter [FreeStyle Lite Meter] Kit See Rx Instructions miscellaneous .MEDSUPPLY Qty: 1 0RF Rx Instructions: 3 times a day (DME) lancets [FreeStyle Lancets] 28 gauge misc See Rx Instructions .MEDSUPPLY Qty: 100 8RF Rx Instructions: Twice a day (DME) FreeStyle Lite Strips Strip See Rx Instructions .MEDSUPPLY Qty: 100 6RF Rx Instructions: 2 times a day levothyroxine 137 mcg tablet 137 mcg PO DAILY@0600 omeprazole 20 mg capsule,delayed release(DR/EC) 20 mg PO DAILY@0630 albuterol sulfate [Ventolin HFA] 90 mcg/actuation HFA aerosol inhaler 2 puff INHALATION Q4-6H PRN (Reason: dyspnea) bisoprolol fumarate 5 mg Tablet 5 mg PO DAILY Qty: 30 0RF diltiazem HCl 120 mg capsule,extended release 24hr 120 mg PO DAILY rosuvastatin 5 mg tablet 5 mg PO BEDTIME Januvia 100 mg tablet 100 mg PO QAM tramadol 50 mg tablet 50 mg PO Q12H PRN (Reason: severe pain) lidocaine 5 % adhesive patch,medicated 1 patch topical DAILY PRN (Reason: Pain) Rx Instructions: on for 12 hours, off for 12 hours diltiazem HCl 60 mg capsule,extended release 12 hr 60 mg PO QAM magnesium hydroxide [Milk of Magnesia] 400 mg/5 mL Suspension 30 ml PO BID PRN (Reason: Constipation) Qty: 355 0RF (DME) walker Misc See Rx Instructions .MEDSUPPLY Qty: 1 0RF Rx Instructions: Walker without wheels montelukast 10 mg tablet 10 mg PO BEDTIME (DME) blood sugar diagnostic Strip See Rx Instructions Not Applicable BID Qty: 10 Rx Instructions: As directed cholecalciferol (vitamin D3) 50 mcg (2,000 unit) capsule 50 mcg PO DAILY 90 Days Qty: 90 2RF sucralfate 100 mg/mL suspension 10 ml PO BEDTIME Qty: 400 3RF Xarelto 20 mg tablet 20 mg PO DAILY@1800 Referrals: Hector Spangler MD [Physician] - 1 week
--- OUTSIDE RECORDS SUMMARY | 2022-10-22 04:33 | XMS_ITS | Patient Health Record ---
Author Name Unknown [facility] Address [address] [facility], [place] [address] Care Team Providers Care Program Facilitator Name Role Phone Carlitos Rodriguez Primary Care Provider Unavaila ble Black, Robina Unavailable [phone] Kathleen Stoddard MD Unavailable Unavailable ALLERGIES Allergen [...] primary osteoarthritis of the ankle and/or foot (698778968) Problem Primary osteoarthritis, left ankle and foot (M19.072) Active confirmed Localized, primary osteoarthritis of the ankle and/or foot (570153606) Problem Hallux valgus (acquired), right foot (M20.11) Active confirmed Acquired hallu x valgus (67296385) Problem Other hammer toe(s) (acquired), right foot (M20.41) Active confirmed Acquired hamme r toe of right foot (4621293074620745 ) Problem Other hammer toe(s) (acquired), left foot (M20.42) Active confirmed Acquired hamme r toe of left foot (1072574450085575 ) Problem Type 2 diabetes mellitus with diabetic polyneuropathy (E11.42) Active confirmed Polyneuropathy due to type 2 diabetes mellitus (170119026) Problem Type 1 diabetes mellitus with diabetic polyneuropathy (E10.42) Active confirmed Polyneuropathy due to diabetes mellitus type I (103495231) Encounters Encounter Location Date Provider Diagnosis [facility] [address] [address] 05/05/2022 Robina Olmedo [facility] [address] 05/06/2022 Robina Honorio [facility] [place] [address] [address] 06/21/2022 Robina Honorio [facility] [address] 06/21/2022 Robina Olmedo PLAN OF TREATMENT Pending Test Test Name Order Date Tc99 3 phase Bone Scan 07/28/2020 [id number] SKIN LESIONS, 2 TO 4 03/16/19 [id number] NAIL(S) 03/16/2021 Next Appt Details Provider Name:Robina Olmedo , 11/11/2022 09:00:00 AM, [address] [place] [address], [id number], Insurance Providers Payer Name Payer Address Payer Phone Subscriber Number Group Number Insured Name Patient Relationship to Insured Coverage Start Date Coverage End Date [facility] [employer] Claims [address] [place] [address] [phone] [id number] Teresa Andrews Self - patient is the insured MEDICAL (GENERAL) HISTORY Medical History History ICD Code Anxiety asthma Back,Hip,and Knee pain Broken bones CAD (Cholesterol) type II diabetes Fibromyalgia Gall bladder problems High blood pressure chronic sinusitis thyroid Surgical History Surgery Date(Month/Year) hysterectomy wisdom teeth extraction colonoscopy endoscopy
--- NOTE | 2022-10-22 04:44 | PC.NURSE ---
pt refuses knee immobilizer at this time. Provider placed orders for pain control. Will attempt after medication administration
[2022-10-22] MEDS: oxyCODONE HCl Immed Release 5 MG TABLET PO (04:47)
--- NOTE | 2022-10-22 05:56 | PC.NURSE ---
placed knee immobilizer on R leg, pt ambulated with walker to bathroom with assistance. Per pt she reports she has a BAND [employer]INGER that she can call for help at home and that she can stay at her cousins for extra assistance as well
--- NOTE | 2022-10-22 07:28 | MHC.CM.ED ---
Received case management consult overnight for possible STR placement. Patient was d/c'd home before being seen by case management.
== END 2022-10-22 06:33 | disposition home or self-care (01) ==
PROVIDERS: Internal Medicine; Emergency Provider Emergency Medicine Emergency Medical Services
DX: U07.1 COVID-19 (principal); S82.091A Other fracture of right patella, initial encounter for closed fracture; W19.XXXA Unspecified fall, initial encounter; E11.9 Type 2 diabetes mellitus without complications; I11.0 Hypertensive heart disease with heart failure; I50.9 Heart failure, unspecified; I48.21 Permanent atrial fibrillation; E78.5 Hyperlipidemia, unspecified; Z87.891 Personal history of nicotine dependence; Z79.01 Long term (current) use of anticoagulants; Z79.899 Other long term (current) drug therapy; Y93.9 Activity, unspecified; Y92.9 Unspecified place or not applicable; Y99.9 Unspecified external cause status
CPT/HCPCS: 36415; 73562; 80048; 85025; 93005; 99284; 99285

== ENCOUNTER 2022-10-28 11:15 | Outpatient (AMB) | payer OTHER, SELFPAY ==
[2022-10-28 11:18] VITALS: BMI 30.6
--- NOTE | 2022-10-28 11:18 | A.OFFVIS_ITS ---
Intake Vital Signs 10/28/22 11:18 Height 5 ft 1 in Weight 162 lb BMI 30.6 Intake Visit Reasons: FC - right knee fx, DOI 10/22/22 Intake Note: Teresa is a 77 year old female who presents today for a evaluation for her right knee fx, DOI 10/23/22. Patient reports having a hx of losing her balance and hx of being on high risk of falling. She states that she is unsure how she fell but she falls often. Her pain is more focused on her knee cap. Pain is worse when walking, using stairs and getting up from the chair. Allergies aspirin [ASPIRIN] Allergy (Severe, Verified 10/28/22 11:29) ANAPHYLAXIS Seasonal Allergies Allergy (Intermediate, Verified 10/28/22 11:29) asthma, itch, rash HPI FC - right knee fx, DOI 10/22/22 HPI Details 77-year-old female, who is [place] speak ing, presents in the office today, as a new patient, for an evaluation of right knee pain. The patient presented to the ED on 10/22/2022 status post being diagnosed with COVID (on 10/21/2022). She reported in the ED she become dizzy and fell which caused her to land on her right knee cap. X-rays of the right knee were obtained. She was placed in a knee immobilizer and given crutches. The patient states she is unsure how she fell but confirms she falls often. She states her pain is focused on the right knee cap. She confirms her pain increases when ambulating, use of stairs, and getting up from a chair. She presented to the office not wearing a brace. The patient reports a history of losing her balance and is a high risk for falling. She is accompanied in the office today by a family member. [facility] Medical History Permanent atrial fibrillation Abnormal nuclear stress test Restless leg syndrome CHF (congestive heart failure) DM2 (diabetes mellitus, type 2) Essential hypertension Autoimmune thyroiditis Overweight (BMI 25.0-29.9) Arthritis Depression with anxiety Diabetes Addiction, opium Moderate persistent asthma Vitamin D deficiency Hypertension Osteopenia Obesity (BMI 30-39.9) Dyslipidemia Hypothyroidism (acquired) Diabetes type 2, uncontrolled Surgical History Hx of cataract surgery Hx of arthroscopy of knee History of radical hysterectomy Family History Father Diabetes Mother No problems noted. Son Substance use disorder Social History Household Members: Unknown / Unable to assess Housing: Unknown / Unable to assess Do you presently have visiting nurse or other home services: Yes Unable to assess alcohol history related to: Unable to respond Alcohol intake: never Patient Tobacco Use Status: Former Tobacco user e-Cigarette/Vaping Use: Never Used Second Hand Smoke Exposure: No Substance Use Type: Unknown Advance Directives Date on File: 07/30/22 service: No Current occupational status: retired Review of Systems Const All systems reviewed & are unremarkable except as noted in HPI and below Physical Exam Vital Signs: BMI result Body Mass Index 30.6 Const General: cooperative and no acute distress Orientation/consciousness: patient oriented x3 Resp Effort & Inspection: normal respiratory effort and able to speak in complete sentences Cardio Peripheral pulses: Peripheral pulses 2+ throughout Skin General skin exam: no rashes or lesions noted Neuro General: patient oriented x3 Extrem Other: Right knee: Mild joint effusion. Extension and flexion to 60 degrees. Tenderness to palpation along the anterior aspect of the patella. NVI. Office Procedures Fracture Care Fracture Billing Code: Fracture Billing Code Assessment & Plan Assessment & Plan (1) Right patella fracture: Code(s): S82.001A - Unspecified fracture of right patella, initial encounter for closed fracture Qualifiers: Encounter type: initial encounter Fracture alignment: nondisplaced Fracture morphology: unspecified fracture morphology Fracture type: closed Qualified Code(s): S82.001A - Unspecified fracture of right patella, initial encounter for closed fracture Plan Ms. Chuck Nino is a 77-year-old female, who is [place] speaking, presents in the office today, as a new patient, for an evaluation of right knee pain. The patient presented to the ED on 10/22/2022 status post being diagnosed with COVID (on 10/21/2022). She reported in the ED she become dizzy and fell which caused her to land on her right knee cap. X-rays of the right knee were obtained. She was placed in a knee immobilizer and given crutches. The patient states she is unsure how she fell but confirms she falls often. She states her pain is focused on the right knee cap. She confirms her pain increases when ambulating, use of stairs, and getting up from a chair. She presented to the office not wearing a brace. The patient reports a history of losing her balance and is a high risk for falling. She is accompanied in the office today by a family member. The patient will be placed in an ACL brace locked in extension. I strongly educated the patient on the importance of not flexing the knee. I explained to her that this could cause a displacement of the fracture that could possible lead to surgery. Follow up will be in 3 weeks, or sooner if needed. X-rays of the right knee obtained while in the office today and reviewed by me, Jenae Kumar PA-C, revealed right patella fracture, non-displaced. X-rays of the right knee, obtained on 10/22/2022, revealed: 1. Minimally displaced fracture through the patella associated with a moderate joint effusion. 2. Medial and lateral knee degenerative change. Orders: Orders XR knee RT 2V Today M25.569 - Pain in unspecified knee Patient Instructions: Scribed for Jenae Kumar PA-C by Zandra Linton medical typist, on 10/28/2022 at 11:17 am, EST. Coding Level of Care Code New Pt Level 4 (77448) Diagnoses Closed nondisplaced fracture of right patella, unspecified fracture morphology, initial encounter S82.001A Encounter type: initial encounter Fracture alignment: nondisplaced Fracture morphology: unspecified fracture morphology Fracture type: closed CPT Codes Fracture Care - Fracture Billing Code: Fracture Billing Code ([id number])
== END 2022-10-28 12:41 | disposition home or self-care (01) ==
PROVIDERS: Visit Provider Physician Assistant
DX: S82.001A Unspecified fracture of right patella, initial encounter for closed fracture (principal)
CPT/HCPCS: 27520; 99214

== ENCOUNTER 2022-10-28 11:35 | Outpatient (REF) | payer OTHER, SELFPAY ==
--- NOTE | ~2022-10-28 | XR_ITS ---
EXAMINATION: XR KNEE, RIGHT CLINICAL INFORMATION: Right knee pain. COMPARISON: Right knee radiographs dated 10/22/2022. TECHNIQUE: AP and lateral of the right knee. FINDINGS: Oblique, minimally displaced fracture through the mid pole of the patella in unchanged anatomic alignment. No additional fracture or dislocation. Mild medial compartment joint space narrowing. Tricompartmental marginal osteophytes. No osseous erosion. Small joint effusion. XR/XR knee RT 2V IMPRESSION: Oblique, minimally displaced fracture through the mid pole of the patella in unchanged anatomic alignment. Mild tricompartmental osteoarthritis and small joint effusion, unchanged.
== END 2022-10-28 11:36 | disposition home or self-care (01) ==
LOC: HO.HOSX 11:35
PROVIDERS: Visit Provider Physician Assistant
DX: S82.001A Unspecified fracture of right patella, initial encounter for closed fracture (principal); W19.XXXA Unspecified fall, initial encounter; Z91.81 History of falling; Y93.9 Activity, unspecified; Y92.9 Unspecified place or not applicable; Y99.9 Unspecified external cause status
CPT/HCPCS: 27520; 73560; 99212

== ENCOUNTER 2022-11-23 10:58 | Outpatient (AMB) | payer OTHER, SELFPAY ==
--- NOTE | 2022-11-23 11:11 | MHC.OFFVIS ---
Intake Vital Signs 11/23/22 11:21 Height 5 ft 1 in Weight 162 lb BMI 30.6 Intake Visit Reasons: OV-right knee fx, DOI 10/22/22-xray Intake Note: Teresa 77 yr old female presents today for her follow up visit with her GENERATOR SWITCHBOARD OPERATOR for her fracture of right patella from DOS 10/22/22. States after she was seen here she fell down and was hospitalized at [facility]. She was discharge to a rehab facility who have been using a knee immobilizer on her. Currently states she continues to have pain and limited ROM. Allergies aspirin [ASPIRIN] Allergy (Severe, Verified 11/23/22 11:21) ANAPHYLAXIS Seasonal Allergies Allergy (Intermediate, Verified 11/23/22 11:21) asthma, itch, rash HPI OV-right knee fx, DOI 10/22/22-xray HPI Details 77-year-old female, who is [place]arag[place] speaking, presents in the office today with her GENERATOR SWITCHBOARD OPERATOR for a follow up of a right patella fracture, which occurred on 10/22/2022 status post a fall. The patient reports after she was seen at [facility] she feel another time and was hospitalized at [facility]. She states she was discharged to a rehab facility, who placed her in a knee immobilizer. She reports she is currently having pain and limited ROM. [facility] Medical History Permanent atrial fibrillation Abnormal nuclear stress test Restless leg syndrome CHF (congestive heart failure) DM2 (diabetes mellitus, type 2) Essential hypertension Autoimmune thyroiditis Overweight (BMI 25.0-29.9) Arthritis Depression with anxiety Diabetes Addiction, opium Moderate persistent asthma Vitamin D deficiency Hypertension Osteopenia Obesity (BMI 30-39.9) Dyslipidemia Hypothyroidism (acquired) Diabetes type 2, uncontrolled Surgical History Hx of cataract surgery Hx of arthroscopy of knee History of radical hysterectomy Family History Father Diabetes Mother No problems noted. Son Substance use disorder Social History Household Members: Unknown / Unable to assess Housing: Unknown / Unable to assess Do you presently have visiting nurse or other home services: Yes Unable to assess alcohol history related to: Unable to respond Alcohol intake: never Patient Tobacco Use Status: Former Tobacco user e-Cigarette/Vaping Use: Never Used Second Hand Smoke Exposure: No Substance Use Type: Unknown Advance Directives Date on File: 07/30/22 service: No Current occupational status: retired Review of Systems Const All systems reviewed & are unremarkable except as noted in HPI and below Physical Exam Vital Signs: BMI result Body Mass Index 30.6 Const General: cooperative, healthy appearing and no acute distress Resp Effort & Inspection: normal respiratory effort and able to speak in complete sentences Cardio Rate: regular rate Peripheral pulses: Peripheral pulses 2+ throughout GI Palpation (GI): Soft to palpation Skin Lesions: no lesions Rashes: no rashes Extrem Other: Right knee: Mild joint effusion. Extension and flexion to 60 degrees. Tenderness to palpation along the anterior aspect of the patella. NVI. Assessment & Plan Assessment & Plan (1) Right patella fracture: Code(s): S82.001A - Unspecified fracture of right patella, initial encounter for closed fracture Qualifiers: Encounter type: initial encounter Fracture alignment: nondisplaced Fracture morphology: unspecified fracture morphology Fracture type: closed Qualified Code(s): S82.001A - Unspecified fracture of right patella, initial encounter for closed fracture Plan Ms. Chuck Nino is a 77-year-old female, who is [place]arag[place] speaking, presents in the office today with her GENERATOR SWITCHBOARD OPERATOR for a follow up of a right patella fracture, which occurred on 10/22/2022 status post a fall. The patient reports after she was seen at [facility] she feel another time and was hospitalized at [facility]. She states she was discharged to a rehab facility, who placed her in a knee immobilizer. She reports she is currently having pain and limited ROM. The patient will remain in the knee immobilizer for 2 additional weeks. She will begin physical therapy in 2 weeks to begin to work on gentle ROM. At that time she will transition to the ACL brace she was given at her last appointment to allow for them to unlock 10 degrees each week. Follow up will be in 4 weeks for a ROM check, or sooner if needed. X-rays of the right knee obtained while in the office today and reviewed by me, Jenae Kumar PA-C, redemonstrated a patella fracture with routine healing. Orders: Orders XR knee RT 2V Today M25.569 - Pain in unspecified knee PT Evaluation and Treatment Today S82.001A - Unspecified fracture of right patella, initial encounter for closed fracture Patient Instructions: Scribed for Jenae Kumar PA-C by Zandra Linotn medical officer psychiatry, on 11/23/2022 at 11:00 am, EST. Coding Level of Care Code Global (39274) Diagnoses Closed nondisplaced fracture of right patella, unspecified fracture morphology, initial encounter S82.001A Encounter type: initial encounter Fracture alignment: nondisplaced Fracture morphology: unspecified fracture morphology Fracture type: closed
[2022-11-23 11:21] VITALS: BMI 30.6
== END 2022-11-23 11:46 | disposition home or self-care (01) ==
PROVIDERS: Visit Provider Physician Assistant
DX: S82.001A Unspecified fracture of right patella, initial encounter for closed fracture (principal)
CPT/HCPCS: 99024

== ENCOUNTER 2022-11-23 11:10 | Outpatient (REF) | payer OTHER, SELFPAY ==
--- NOTE | ~2022-11-23 | XR_ITS ---
EXAMINATION: XR KNEE, RIGHT CLINICAL INFORMATION: Right knee pain COMPARISON: 10/28/2022 TECHNIQUE: 2 views of the right knee. FINDINGS: 2 views of right knee redemonstrating narrowing of the medial compartment of right knee joint and mild marginal spurring causing medial and lateral tibial plateau. There is faint lucency through the mid patella consistent with healing undisplaced fracture of the mid body of patella with well aligned fragments. Seen on the first examination large joint effusion has been resolved. XR/XR knee RT 2V IMPRESSION: Interval healing of patellar fracture with well aligned fragments and mild degenerative changes
== END 2022-11-23 11:11 | disposition home or self-care (01) ==
LOC: HO.HOSX 11:10
PROVIDERS: Visit Provider Physician Assistant
DX: M25.561 Pain in right knee (principal); S82.001D Unspecified fracture of right patella, subsequent encounter for closed fracture with routine healing; X58.XXXD Exposure to other specified factors, subsequent encounter
CPT/HCPCS: 73560

== ENCOUNTER 2022-12-01 10:45 | Outpatient (REF) | payer OTHER, SELFPAY ==
[2022-12-01 11:59] LABS: MANUAL DIFF FLAG NO
[2022-12-01 12:05] LABS: Basophils Absolute Auto 0.1 X10*3/uL (0.0-0.2); Basophils Percent Auto 0.7 % (0-2); Eosinophils Absolute Auto 0.1 X10*3/uL (0.0-0.4); Eosinophils Percent Auto 0.9 % (0-4); Hematocrit 39.5 % (37.0-47.0); Hemoglobin 12.7 g/dl (12.0-16.0); Imm Gran Abs Auto 0.02 X10*3/uL (0.00-0.03); Imm Gran Pct Auto 0.2 % (0.0-0.4); Lymphocytes Absolute Auto 2.5 X10*3/uL (1.2-4.9); Mean Corpuscular HGB Conc 32.2 g/dl (31.0-35.0); Mean Corpuscular Hemoglobin 27.2 pg (27.0-33.0); Mean Corpuscular Volume 84.6 fL (80.0-98.0); Mean Platelet Volume 11.6 fL (9.4-12.3); Monocytes Absolute Auto 0.7 X10*3/uL (0.1-1.2); Monocytes Percent Auto 8.7 % (2-11); Neutrophils Absolute Auto 4.8 x10*3/uL (2.0-8.3); Neutrophils Percent Auto 58.5 % (45-73); Platelet Count 287 X10*3/uL (160-400); Red Blood Count 4.67 X10*6/uL (4.20-5.50); White Blood Count 8.2 X10*3/uL (4.8-10.8)
[2022-12-01 12:17] LABS: Estimated Average Glucose 126 mg/dL
[2022-12-01 12:44] LABS: Alanine Aminotransferase < 5 U/L (0-31); Albumin Level 4.1 g/dL (3.5-5.0); Alkaline Phosphatase 68 U/L (39-117); Anion Gap 12 (12-20); Aspartate Amino Transferase 14 U/L (5-31); Bilirubin Total 0.6 mg/dL (0.0-1.0); Blood Urea Nitrogen 15 mg/dL (9-16); Carbon Dioxide 27 mmol/L (22-29); Chloride 104 mmol/L (96-108); Cholesterol 124 mg/dL (<200); Estimated Glomerular Filt Rate > 60; Glucose Random 83 mg/dL (60-115); HDL Cholesterol 47 mg/dL (>40); LDL Cholesterol Calculated 59 mg/dL (<100); Potassium 3.8 mmol/L (3.3-5.1); Sodium 139 mmol/L (135-145); Total Protein 7.4 g/dL (6.5-8.0); Triglycerides 92 mg/dL (<150)
[2022-12-01 12:45] LABS: Free T4 (Free Thyroxine) 1.36 ng/dL (0.71-1.85); Thyroid Stimulating Hormone 1.71 uIU/mL (0.32-4.0)
[2022-12-01 13:06] LABS: HBS Num1 0.53 mIU/mL (0-7.99); HBc Num1 0.12 S/CO (0.00-0.79); HBsAGNum1 0.31 S/CO (0.00-0.99); HIV AB/AG Nonreactive (Nonreactive); HIV Num 1 0.03 S/CO (0.00-0.99); Hepatitis B Core Antibody Nonreactive (Nonreactive); Hepatitis B Surface Antigen Negative (Negative); ~HepC Num1 0.06 S/CO (0.00-0.79); ~Hepatitis B Surface Antibody NONREACTIVE (Nonreactive); ~Hepatitis C Antibody Nonreactive (Nonreactive)
[2022-12-01 13:08] LABS: Syphilis Screen Nonreactive (Nonreactive)
[2022-12-01 13:12] LABS: Folate 10.2 ng/mL (> or = 4.0); Vitamin B12 445 pg/mL (200-900)
[2022-12-01 14:41] LABS: Creatinine Urine 40.95 mg/dL; Microalbumin Urine < 5.0 mg/L
[2022-12-01 17:10] LABS: CT PCR NOT DETECTED (Not Detect.); NG PCR NOT DETECTED (Not Detect.)
[2022-12-02 17:13] LABS: Hepatitis B Viral DNA Qn - cp NOT DETECTED Log IU/mL (NOT DETECTED); Hepatitis B Viral DNA Qn-IU/mL NOT DETECTED (NOT DETECTED)
[2022-12-07 00:17] LABS: VITAMIN D (1,25 OH) D3 28 pg/mL; Vit D (1,25-Dihydroxy) Total 28 pg/mL (18-72); Vitamin D (1,25 OH) D2 <8 pg/mL
== END 2022-12-01 10:46 | disposition home or self-care (01) ==
LOC: HO.HHCL 10:45
PROVIDERS: Visit Provider Student in an Organized Health Care Education/Training Program
DX: Z00.00 Encounter for general adult medical examination without abnormal findings (principal); Z20.2 Contact with and (suspected) exposure to infections with a predominantly sexual mode of transmission; E03.9 Hypothyroidism, unspecified; E78.2 Mixed hyperlipidemia; E11.9 Type 2 diabetes mellitus without complications; E55.9 Vitamin D deficiency, unspecified
CPT/HCPCS: 0353U; 80053; 80061; 82043; 82570; 82607; 82652; 82746; 83036; 84439; 84443; 85025; 86704; 86706; 86780; 86803; 87340; 87389; 87517

== ENCOUNTER 2022-12-23 11:11 | Outpatient (REF) | payer OTHER, SELFPAY ==
--- NOTE | ~2022-12-23 | XR_ITS ---
EXAMINATION: XR KNEE, RIGHT CLINICAL INFORMATION: Reason for Exam M25.569 - Pain in unspecified knee COMPARISON: Knee radiographs 11/23/2022 TECHNIQUE: 2 views of the knee FINDINGS: Minimally displaced fracture of the patella, with slightly decreased conspicuity of the fracture margin suggesting ongoing healing. Moderate degenerative changes of the knee with loss of medial compartment joint space and small tricompartmental osteophytes. No joint effusion. Atherosclerotic vascular calcification. XR/XR knee RT 2V IMPRESSION: 1. Minimally displaced fracture of the patella, with slightly decreased conspicuity of the fracture margin suggesting ongoing healing. 2. Moderate degenerative changes of the knee.
== END 2022-12-23 11:12 | disposition home or self-care (01) ==
LOC: HO.HOSX 11:11
PROVIDERS: Visit Provider Physician Assistant
DX: S82.001D Unspecified fracture of right patella, subsequent encounter for closed fracture with routine healing (principal)
CPT/HCPCS: 73560

== ENCOUNTER 2022-12-23 13:11 | Outpatient (AMB) | payer OTHER, SELFPAY ==
--- NOTE | 2022-12-23 13:28 | MHC.OFFVIS ---
Intake Vital Signs 12/23/22 13:29 Height 5 ft 1 in Weight 162 lb BMI 30.6 Intake Visit Reasons: OV-right knee fx, DOI 10/22/22-xray Intake Note: Teresa 77 yr old female presents today with her SIDE GUIDER for a ROM check of her right knee, DOS 10/22/22. States she is having some discomfort on the medial aspect of the knee. She was wondering if it could be from the cold weather. Allergies aspirin [ASPIRIN] Allergy (Severe, Verified 12/23/22 13:29) ANAPHYLAXIS Seasonal Allergies Allergy (Intermediate, Verified 12/23/22 13:29) asthma, itch, rash HPI OV-right knee fx, DOI 10/22/22-xray HPI Details 77-year-old female, who is Paraguayan speaking, presents in the office today for a follow up of a right patella fracture, which occurred on 10/22/2022 status post a fall. The patient states she is having some discomfort on the medial aspect of the right knee. She expresses concern that the discomfort is from the cold weather. [facility] Medical History Permanent atrial fibrillation Abnormal nuclear stress test Restless leg syndrome CHF (congestive heart failure) DM2 (diabetes mellitus, type 2) Essential hypertension Autoimmune thyroiditis Overweight (BMI 25.0-29.9) Arthritis Depression with anxiety Diabetes Addiction, opium Moderate persistent asthma Vitamin D deficiency Hypertension Osteopenia Obesity (BMI 30-39.9) Dyslipidemia Hypothyroidism (acquired) Diabetes type 2, uncontrolled Surgical History Hx of cataract surgery Hx of arthroscopy of knee History of radical hysterectomy Family History Father Diabetes Mother No problems noted. Son Substance use disorder Social History Household Members: Unknown / Unable to assess Housing: Unknown / Unable to assess Do you presently have visiting nurse or other home services: Yes Unable to assess alcohol history related to: Unable to respond Alcohol intake: never Patient Tobacco Use Status: Former Tobacco user e-Cigarette/Vaping Use: Never Used Second Hand Smoke Exposure: No Substance Use Type: Unknown Advance Directives Date on File: 07/30/22 service: No Current occupational status: retired Review of Systems Const All systems reviewed & are unremarkable except as noted in HPI and below Physical Exam Vital Signs: BMI result Body Mass Index 30.6 Const General: cooperative, healthy appearing and no acute distress Resp Effort & Inspection: normal respiratory effort and able to speak in complete sentences Cardio Rate: regular rate Peripheral pulses: Peripheral pulses 2+ throughout GI Palpation (GI): Soft to palpation Skin Lesions: no lesions Rashes: no rashes Extrem Other: Right knee: ROM is 0-110 degrees. No tenderness to palpation to the anterior aspect of the patella. NVI. Assessment & Plan Assessment & Plan (1) Right patella fracture: Code(s): S82.001A - Unspecified fracture of right patella, initial encounter for closed fracture Qualifiers: Encounter type: initial encounter Fracture alignment: nondisplaced Fracture morphology: unspecified fracture morphology Fracture type: closed Qualified Code(s): S82.001A - Unspecified fracture of right patella, initial encounter for closed fracture Plan Ms. Chuck Nino is a 77-year-old female, who is [place] speaking, presents in the office today for a follow up of a right patella fracture, which occurred on 10/22/2022 status post a fall. The patient states she is having some discomfort on the medial aspect of the right knee. She expresses concern that the discomfort is from the cold weather. The patient will be referred to physical therapy to begin to work on gentle ROM. Follow up will be in 6 weeks, or sooner if needed. X-rays of the right knee which were obtained while in the office today and were reviewed by me, Jenae Kumar PA-C, revealed routine healing of a right patella fracture. Orders: Orders XR knee RT 2V Today M25.569 - Pain in unspecified knee PT Evaluation and Treatment Today S82.001A - Unspecified fracture of right patella, initial encounter for closed fracture Patient Instructions: Scribed for Jenae Kumar PA-C by Zandra Linton ophthalmic medical technologist, on 12/23/2022 at 1:14 pm, EST. Coding Level of Care Code Global (88817) Diagnoses Closed nondisplaced fracture of right patella, unspecified fracture morphology, initial encounter S82.001A Encounter type: initial encounter Fracture alignment: nondisplaced Fracture morphology: unspecified fracture morphology Fracture type: closed
[2022-12-23 13:29] VITALS: BMI 30.6
== END 2022-12-23 13:40 | disposition home or self-care (01) ==
PROVIDERS: Visit Provider Physician Assistant
DX: S82.001A Unspecified fracture of right patella, initial encounter for closed fracture (principal)
CPT/HCPCS: 99024

== ENCOUNTER 2022-12-29 15:13 | Outpatient (REF) | payer OTHER, SELFPAY ==
--- NOTE | ~2022-12-29 | XR_ITS ---
EXAMINATION: XR HIP, RIGHT CLINICAL INFORMATION: Mass right buttock COMPARISON: Right hip radiograph from 09/19/2022 TECHNIQUE: Two views of the right hip. FINDINGS: No acute visible fracture or dislocation. Mild degenerative changes of the right femoral acetabular joint. Joint space alignment are otherwise maintained. Partially visualized lumbosacral spinal hardware. Soft tissues are unremarkable. XR/XR hip RT min 2V IMPRESSION: 1. No acute visible fracture or dislocation. 2. Mild degenerative changes of the right femoral acetabular joint. 3. Partially visualized lumbosacral spinal hardware.
== END 2022-12-29 15:14 | disposition home or self-care (01) ==
LOC: HO.HHCX 15:13
PROVIDERS: Visit Provider Student in an Organized Health Care Education/Training Program
DX: R22.2 Localized swelling, mass and lump, trunk (principal)
CPT/HCPCS: 73502

== ENCOUNTER 2023-02-10 11:02 | Outpatient (REF) | payer OTHER, SELFPAY | END 2023-02-10 11:03 | disposition home or self-care (01) | LOC: HO.HOSX 11:02 | PROVIDERS: Visit Provider Physician Assistant | DX: Z13.89 Encounter for screening for other disorder (principal) ==

== ENCOUNTER 2023-02-22 11:27 | Outpatient (REF) | payer OTHER, SELFPAY ==
[2023-02-22 13:03] LABS: Anion Gap 13 (12-20); Blood Urea Nitrogen 17 mg/dL (9-16); Carbon Dioxide 29 mmol/L (22-29); Chloride 104 mmol/L (96-108); Estimated Glomerular Filt Rate > 60; Glucose Random 89 mg/dL (60-115); Potassium 4.4 mmol/L (3.3-5.1); Sodium 142 mmol/L (135-145)
== END 2023-02-22 11:28 | disposition home or self-care (01) ==
LOC: HO.LAB 11:27
PROVIDERS: PCP Student in an Organized Health Care Education/Training Program; Visit Provider Nurse Practitioner Family
DX: I48.91 Unspecified atrial fibrillation (principal)
CPT/HCPCS: 36415; 80048

== ENCOUNTER 2023-02-28 12:07 | Outpatient (AMB) | payer OTHER, SELFPAY ==
--- NOTE | 2023-02-28 12:35 | A.OFFVIS_ITS ---
Intake Vital Signs 02/28/23 12:37 Height 5 ft 1 in Weight 149 lb 14.629 oz BMI 28.3 BP 132/62 Blood Pressure Location Lt brachial Position Sitting Pulse 74 Intake Visit Reasons: follow up CTA Intake Note: follow up CTA Forest Nursery Worker Required: Yes Forest Nursery Worker Language: Inspector Penetrant Name: Elsie [id number] Accompanied by: SHOE COVERER Allergies aspirin [ASPIRIN] Allergy (Severe, Verified 02/28/23 12:38) ANAPHYLAXIS Seasonal Allergies Allergy (Intermediate, Verified 02/28/23 12:38) asthma, itch, rash Medication List - Last Reconciled 02/28/23 by Laureano Brar MD albuterol sulfate 90 mcg/actuation (Ventolin HFA) 2 puffs inhalation Q4-6H PRN alendronate 70 mg PO QWEEK bisoprolol fumarate 5 mg PO DAILY blood sugar diagnostic As directed blood sugar diagnostic (FreeStyle Lite Strips) 2 times a day blood-glucose meter (FreeStyle Lite Meter kit) 3 times a day carbidopa-levodopa 25-100 mg 1 tab PO TID cholecalciferol (vitamin D3) 50 mcg PO DAILY 90 days diltiazem HCl 120 mg PO DAILY diltiazem HCl ER 60 mg PO QAM fluticasone propion-salmeterol 500-50 mcg/dose 1 ea PO BID lancets (FreeStyle Lancets) Twice a day levothyroxine 137 mcg PO DAILY@0600 lidocaine 5% 1 patch topical DAILY PRN magnesium hydroxide (Milk of Magnesia) 30 mL PO BID PRN montelukast 10 mg PO BEDTIME omeprazole 20 mg PO DAILY@0630 oxycodone mg PO DAILY rivaroxaban (Xarelto) 20 mg PO DAILY@1800 rosuvastatin 5 mg PO BEDTIME sitagliptin phosphate (Januvia) 100 mg PO QAM tramadol 50 mg PO Q12H PRN walker Walker without wheels HPI HPI Comments History of Present Illness Details Teresa returns for follow-up. In the past, she was seen regarding atrial fibrillation. She was getting EKG for preoperative evaluation and that showed atrial fibrillation. She rarely feels some palpitations but otherwise generally doing okay. No complaints like diabetes, hypertension, dyslipidemia extra. Otherwise, doing fine. No symptoms like angina. States she is feeling good. [facility] Medical History Atherosclerotic cardiovascular disease Permanent atrial fibrillation Abnormal nuclear stress test Restless leg syndrome CHF (congestive heart failure) DM2 (diabetes mellitus, type 2) Essential hypertension Autoimmune thyroiditis Overweight (BMI 25.0-29.9) Arthritis Depression with anxiety Diabetes Addiction, opium Moderate persistent asthma Vitamin D deficiency Hypertension Osteopenia Obesity (BMI 30-39.9) Dyslipidemia Hypothyroidism (acquired) Diabetes type 2, uncontrolled Surgical History Hx of cataract surgery Hx of arthroscopy of knee History of radical hysterectomy Family History Father Diabetes Mother No problems noted. Son Substance use disorder Social History Household Members: Unknown / Unable to assess Housing: Unknown / Unable to assess Do you presently have visiting nurse or other home services: Yes Unable to assess alcohol history related to: Unable to respond Alcohol intake: never Comment: 1:1 sitter Patient Tobacco Use Status: Former Tobacco user e-Cigarette/Vaping Use: Never Used Second Hand Smoke Exposure: No Substance Use Type: Unknown Advance Directives Date on File: 07/30/22 service: No Current occupational status: retired Review of Systems Const All systems reviewed & are unremarkable except as noted in HPI and below Reports as per HPI and Reports no additional complaints Eyes Reports as per HPI and Denies no additional complaints ENT Denies no additional complaints and Reports as per HPI Card Reports as per HPI, Reports no additional complaints, Denies acrocyanosis, Denies chest pain, Denies leg edema, Denies lightheadedness, Denies palpitations and Denies dyspnea Resp Reports as per HPI, Denies no additional complaints and Denies dyspnea GI Reports as per HPI and Denies no additional complaints Reports as per HPI Musc Reports no additional complaints and Reports as per HPI Skin/Breast Reports system reviewed and no additional complaints, except as documented Neuro Reports no additional complaints and Reports as per HPI Psych Reports no additional complaints and Reports as per HPI Endo Reports no additional complaints, Reports as per HPI and Denies palpitations Lazaro/Lymph Reports no additional complaints and Reports as per HPI Aller/Immun Reports no additional complaints and Reports as per HPI Physical Exam Vital Signs: Last Vital Signs Pulse 74 02/28/23 12:37 BP 132/62 02/28/23 12:37 BMI result Body Mass Index 28.3 Const General: comfortable and no acute distress Orientation/consciousness: patient oriented x3 HEENT Other: Unremarkable Head: Yes normal to inspection Neck Neck: Yes normal visual inspection Chest Chest palpation & inspection: normal inspection of the chest Resp Auscultation: clear to auscultation bilaterally Cardio Palpation: normal PMI Heart sounds: S1 normal heart sound present, S2 normal heart sound present, no gallops, no murmurs and no rubs GI Palpation (GI): Soft to palpation Back/Spine/Pelvis Other: unremarkable Skin General skin exam: no rashes or lesions noted Neuro General: patient oriented x3 Extrem General: Yes normal to inspection Psych Mental Status: mental status grossly normal Assessment & Plan Assessment & Plan (1) Persistent atrial fibrillation: Code(s): I48.19 - Other persistent atrial fibrillation Plan: Per last EKG, atrial fibrillation rate of 89/Min. Listed to be on a combination of Diltiazem as well as Bisoprolol. No changes. Otherwise, continue Xarelto. Renal function is stable. We will get a Holter to assess for adequacy of rate control. (2) Atherosclerotic cardiovascular disease: Code(s): I25.10 - Atherosclerotic heart disease of [place] coronary artery without angina pectoris Plan: Echocardiogram with LVEF of 55-60%. Basal inferior hypokinesis. Left atrium moderately dilated. Mild mitral regurgitation. Myocardial perfusion imaging study shows lateral/apical ischemia. Coronary CTA attempted but there was contrast extravasation and hence not completed. Patient not inclined to repeat the study. At this time, she is got absolutely no cardiac symptoms at all. Hence conservatively treat for stable CAD. If she does get any angina then potentially cardiac catheterization. Lipids are well controlled with an LDL of 59 mg/dL. On statins. Orders: Orders ECG 3 day holter monitor Today I48.91 - Unspecified atrial fibrillation Coding Level of Care Code Est Pt Level 4 (95758) Diagnoses Persistent atrial fibrillation I48.19 Atherosclerotic cardiovascular disease I25.10
[2023-02-28 12:37] VITALS: BP 132/62; PULSE 74; BMI 28.3
== END 2023-02-28 12:53 | disposition home or self-care (01) ==
PROVIDERS: PCP Student in an Organized Health Care Education/Training Program; Visit Provider Internal Medicine
DX: I48.19 Other persistent atrial fibrillation (principal); I25.10 Atherosclerotic heart disease of native coronary artery without angina pectoris
CPT/HCPCS: 99214

== ENCOUNTER 2023-02-28 12:59 | Outpatient (REF) | payer OTHER, SELFPAY ==
--- NOTE | ~2023-02-28 | US_ITS ---
EXAMINATION: ULTRASOUND RIGHT BUTTOCK/GLUTEAL REGION CLINICAL INFORMATION: Right buttock mass sensation, right lateral upper thigh. COMPARISON: None available. TECHNIQUE: Targeted ultrasound images were obtained by the sybase developer of the area of concern as indicated by the patient in the right upper thigh lateral aspect. Radiologist was not in attendance. Images were later provided for interpretation. FINDINGS: There is a 2.2 x 1.2 x 2.2 cm hypoechoic lesion in the area of concern as indicated by the patient in the lateral upper right thigh. Internal vascularity is demonstrated. This mass appears complex with fairly defined margins. US/US extremity nonvascular IMPRESSION: A 2.2 cm complex mass in the area of concern indicated by the patient in the lateral upper right thigh of uncertain etiology. Surgical consultation and possible biopsy recommended. MRI with gadolinium could be considered for further evaluation. This study was presented today March 01, 2023 at 7:00 AM for interpretation. PSA staff will provide results to referring provider at this time.
== END 2023-02-28 13:00 | disposition home or self-care (01) ==
LOC: HO.US 12:59
PROVIDERS: PCP Student in an Organized Health Care Education/Training Program; Visit Provider Student in an Organized Health Care Education/Training Program
DX: R22.2 Localized swelling, mass and lump, trunk (principal); I48.19 Other persistent atrial fibrillation; I25.10 Atherosclerotic heart disease of native coronary artery without angina pectoris; Z79.899 Other long term (current) drug therapy
CPT/HCPCS: 76882; 99212

== ENCOUNTER 2023-03-16 08:53 | Outpatient (AMB) | payer OTHER, SELFPAY ==
--- NOTE | 2023-03-16 09:12 | MHC.OFFVIS ---
Intake Vital Signs 03/16/23 09:17 Height 5 ft 1 in Weight 150 lb BMI 28.3 BP 143/71 H Blood Pressure Location Rt brachial Position Sitting Pulse 69 Intake Visit Reasons: right buttock mass Intake Note: This patient was referred by Dr. Martin for an assessment for right buttock mass. Pt c/o; reports no complaints at this time. Retail Project Merchandiser Required: Yes Retail Project Merchandiser Language: Ear Machine Operator Name: Judi Information Interpreted: non-clinical & clinical Accompanied by: Other Relationship Allergies aspirin [ASPIRIN] Allergy (Severe, Verified 03/16/23 09:17) ANAPHYLAXIS Seasonal Allergies Allergy (Intermediate, Verified 03/16/23 09:17) asthma, itch, rash Medication List - Last Reconciled 03/16/23 by Yasir Dahl MD albuterol sulfate 90 mcg/actuation (Ventolin HFA) 2 puffs inhalation Q4-6H PRN alendronate 70 mg PO QWEEK bisoprolol fumarate 5 mg PO DAILY blood sugar diagnostic As directed blood sugar diagnostic (FreeStyle Lite Strips) 2 times a day blood-glucose meter (FreeStyle Lite Meter kit) 3 times a day carbidopa-levodopa 25-100 mg 1 tab PO TID cholecalciferol (vitamin D3) 50 mcg PO DAILY 90 days diltiazem HCl 120 mg PO DAILY diltiazem HCl ER 60 mg PO QAM fluticasone propion-salmeterol 500-50 mcg/dose 1 ea PO BID lancets (FreeStyle Lancets) Twice a day levothyroxine 137 mcg PO DAILY@0600 lidocaine 5% 1 patch topical DAILY PRN magnesium hydroxide (Milk of Magnesia) 30 mL PO BID PRN montelukast 10 mg PO BEDTIME omeprazole 20 mg PO DAILY@0630 oxycodone mg PO DAILY rivaroxaban (Xarelto) 20 mg PO DAILY@1800 rosuvastatin 5 mg PO BEDTIME sitagliptin phosphate (Januvia) 100 mg PO QAM tramadol 50 mg PO Q12H PRN walker Walker without wheels HPI right buttock mass HPI Details 77-year-old female referred for a mass on the right buttock area. She actually points to the area of the right hip near the buttock. She says that she would feel a lump here periodically and she describes this as ?moving around?. She denies any pain or tenderness. She has other multiple similar masses on different parts of her body as well for many years. [facility] Medical History (Updated 03/16/23 @ 09:50 by Yasir Dahl MD) Other bursal cyst, right hip Atherosclerotic cardiovascular disease Permanent atrial fibrillation Abnormal nuclear stress test Restless leg syndrome CHF (congestive heart failure) DM2 (diabetes mellitus, type 2) Essential hypertension Autoimmune thyroiditis Overweight (BMI 25.0-29.9) Arthritis Depression with anxiety Diabetes Addiction, opium Moderate persistent asthma Vitamin D deficiency Hypertension Osteopenia Obesity (BMI 30-39.9) Dyslipidemia Hypothyroidism (acquired) Diabetes type 2, uncontrolled Surgical History Hx of cataract surgery Hx of arthroscopy of knee History of radical hysterectomy Family History Father Diabetes Mother No problems noted. Son Substance use disorder Social History Household Members: Unknown / Unable to assess Housing: Unknown / Unable to assess Do you presently have visiting nurse or other home services: Yes Unable to assess alcohol history related to: Unable to respond Alcohol intake: never Comment: 1:1 sitter Patient Tobacco Use Status: Former Tobacco user e-Cigarette/Vaping Use: Never Used Second Hand Smoke Exposure: No Substance Use Type: Unknown Advance Directives Date on File: 07/30/22 service: No Current occupational status: retired Review of Systems Const Denies chills and Denies fever(s) Card Denies chest pain, Denies dyspnea and Denies dyspnea on exertion Resp Denies cough, Denies dyspnea and Denies dyspnea on exertion GI Denies hematochezia and Denies change in bowel habits Denies hematuria Musc Reports abnormal gait, Reports back pain, Reports myalgias, Reports arthralgias and Reports limited range of motion Neuro Reports abnormal gait, Denies focal weakness and Denies convulsions Psych Denies depression and Denies mood swings Physical Exam Vital Signs: Last Vital Signs Pulse 69 03/16/23 09:17 BP 143/71 H 03/16/23 09:17 BMI result Body Mass Index 28.3 Const Other: Using a walker General: comfortable and no acute distress Orientation/consciousness: patient oriented x3 Neck Neck: Yes no lymphadenopathy Resp Auscultation: clear to auscultation bilaterally Cardio Rhythm: regular rhythm GI Palpation (GI): Soft to palpation, nontender and no guarding Back/Spine/Pelvis Other: Right hip area near the buttock - small, deep subcutaneous cyst, about 1 cm in size, nontender, well-defined Neuro General: patient oriented x3 Extrem Other: Ganglion cyst, wrist, about 1.5 cm Assessment & Plan Assessment & Plan (1) Other bursal cyst, right hip: Code(s): M71.351 - Other bursal cyst, right hip Plan: It appears that she has this deep small cyst towards the hip near the buttock that may be a ganglion cyst. She has a similar ganglion cyst on the left wrist She says that these do not bother her at this time. She wants to hold off any excision. She is welcome to come back to the office to be re-evaluated down the line. Coding Level of Care Code New Pt Level 3 (80482) Diagnoses Other bursal cyst, right hip M71.351
[2023-03-16 09:17] VITALS: BP 143/71; PULSE 69; BMI 28.3
== END 2023-03-16 09:43 | disposition home or self-care (01) ==
PROVIDERS: PCP Student in an Organized Health Care Education/Training Program; Visit Provider Surgery
DX: M71.351 Other bursal cyst, right hip (principal)
CPT/HCPCS: 99203

== ENCOUNTER → 2023-03-16 08:53 | Outpatient (BNVA) | payer OTHER, SELFPAY | PROVIDERS: PCP Student in an Organized Health Care Education/Training Program; Visit Provider Surgery | DX: M71.351 Other bursal cyst, right hip (principal) | CPT/HCPCS: 99202 ==

== ENCOUNTER → 2023-03-29 10:34 | Outpatient (REF) | payer OTHER, SELFPAY ==
--- NOTE | 2023-03-29 10:36 | HM_ITS ---
Conclusion: 1. Patient was monitored for total period of 3 days and 3 hours 2. Baseline was atrial fibrillation with average heart rate of 73 beats per minute with overall good rate control 3. Rare PVCs noted 4. No significant pauses noted 5. No patient reported events MTDD
== END ==
LOC: HO.CARD 10:34
PROVIDERS: PCP Student in an Organized Health Care Education/Training Program; Visit Provider Internal Medicine
DX: I48.91 Unspecified atrial fibrillation (principal)
CPT/HCPCS: 93242

== ENCOUNTER → 2023-03-29 10:36 | Outpatient (BNV) | payer OTHER, SELFPAY | PROVIDERS: PCP Student in an Organized Health Care Education/Training Program; Visit Provider Internal Medicine Cardiovascular Disease | DX: I48.91 Unspecified atrial fibrillation (principal) | CPT/HCPCS: 93244 ==

== ENCOUNTER 2023-03-30 13:00 | Outpatient (RCR) | payer OTHER, SELFPAY ==
--- NOTE | 2023-03-01 17:55 | MHC.PT.EP ---
[facility] [place] Office [place] Office [place] Office [address] Ezra Baez [address] [phone] F: [phone] F: [phone] F: [phone] F: [phone] Physical Therapy Plan of Care Date of Evaluation: 03/01/23 Date of Surgery: Diagnosis: RIGHT patellar fracture (10/22/22, NO surgery) Assessment: Patient is a pleasant 77 y.o. female who is referred to PT by Jenae Kumar PA-C, with Dx of RIGHT patellar fracture (10/22/22, NO surgery). Patient impairments include pain, poor posture, antalgic gait, limited ROM and weakness in LEs with general deconditioning. Patient current functional limitations are bending, kneeling, walking, stair use in community. Patient will benefit from skilled PT to address aforementioned impairments and functional limitations to meet established goals. Frequency and Duration: The patient will be seen 1-2x/week for 4 weeks Short Term Goals: 2 weeks Patient demonstrates consistency and independence with HEP to self manage symptoms. Shelter Goals: 4 weeks Patient demonstrates steady gait with cane use in L hand with step to pattern 100 ft. Patient presents with increased RIGHT knee extension 4+/5 to be able to ascend/descend stairs is community. Treatment Plan: Modalities to reduce pain, spasms and effusion. Manual therapy to restore motion and function. Therapeutic exercise to improve strength and flexibility. Neuromuscular re-education for posture and balance. Therapeutic activities to return to functional activities of daily living. Electronically signed by: Please sign and return to therapist. Thank you for your referral.
--- NOTE | 2023-05-09 10:28 | MHC.PT.DC ---
[facility] [place] [facility] [address] Ezra Baez [address] [phone] F: [phone] F: [phone] F: [phone] F: [phone] Physical Therapy Discharge Report Diagnosis: RIGHT patellar fracture (10/22/22, NO surgery) Date of Surgery: Date of Evaluation: 03/01/23 Date of Discharge: 05/09/23 Treatments to Date: 5 Cancellations to Date: 0 No Shows to Date: 0 Discharge Status: Improved Function Independent with HEP Patient Elected to Stop Discharge Summary: Teresa was consistent with her PT sessions and noted improvement in her sxs. Her last PT treatment on 03/30/23 the assessment reads, Teresa ambulates stiffly with reduced hip extension and knee flexion coming into session. She needed cues throughout session to reduce compensation in low back. She reports little to no pain in her knee to end session and her gait was less antalgic. She ceased attending PT on her own accord and is discharged from PT at this time. Electronically signed by: Melissa Oneill, PT, DPT Please sign and return to therapist. Thank you for your referral.
== END 2023-05-09 10:28 | disposition home or self-care (01) ==
LOC: HO.PT 13:00
PROVIDERS: PCP Student in an Organized Health Care Education/Training Program; Visit Provider Physician Assistant
DX: S82.001D Unspecified fracture of right patella, subsequent encounter for closed fracture with routine healing (principal)
CPT/HCPCS: 97110; 97116; 97161; 97530

== ENCOUNTER 2023-04-01 14:21 | Outpatient (AMB) | payer OTHER, SELFPAY ==
[2023-04-01 14:25] VITALS: BP 126/57; PULSE 75; BMI 28.3
--- NOTE | 2023-04-01 14:25 | MHC.OFFVIS ---
Intake Vital Signs 04/01/23 14:25 Height 5 ft 1 in Weight 150 lb BMI 28.3 BP 126/57 L Blood Pressure Location Lt brachial Position Sitting Pulse 75 Pulse Source Monitor Intake Visit Reasons: 6 Month Follow Up Intake Note: Patient states shes still having bloating with constipation all the time. Theater Company Producer Required: Yes Theater Company Producer Name: [facility] Theater Company Producer Accompanied by: BETI Allergies aspirin [ASPIRIN] Allergy (Severe, Verified 04/01/23 14:30) ANAPHYLAXIS Seasonal Allergies Allergy (Intermediate, Verified 04/01/23 14:30) asthma, itch, rash HPI 6 Month Follow Up HPI Details LAST VISIT: Dyspepsia Continue current dose of omeprazole. Continue taking sucralfate at bedtime. Continue avoiding dietary triggers in late night snacking. Staying upright for minimum 3 hours after meals discussed with patient. Postprandial abdominal bloating Patient reports that she is doing better and moving her bowels better. Less bloating. Continue low FODMAP diet GERD (gastroesophageal reflux disease) Constipation Continue taking Citrucel. Patient can take Linzess 72 mcg daily. I will see her in 6 months, sooner on as needed basis. Patient is agreeable to this plan and verbalizes understanding of instructions. She was given the opportunity to ask questions and all questions answered. ? Thank you for allowing me to participate in her care Plan Medications New sucralfate 10 mL PO BEDTIME 400 mL 3RF K21.9 - Gastro-esophageal reflux disease without esophagitis methylcellulose (laxative) (Citrucel) take it with full glass of water 500 mg PO DAILY 30 tabs 2RF K59.00 - Constipation, unspecified linaclotide (Linzess) 72 mcg PO DAILY 30 caps 2RF Discontinued metformin ER 500 mg PO DAILY 90 days 90 tabs 1RF E11.65 - Type 2 diabetes mellitus with hyperglycemia losartan 25 mg PO DAILY 90 days 90 tabs 2RF I10 - Essential (primary) hypertension calcium citrate-vitamin D3 315 mg-5 mcg (200 unit) 2 tabs PO BID 30 days 120 tabs 4RF M85.80 - Other specified disorders of bone density and structure, unspecified site sucralfate Please take it at noon time and at bedtime 10 mL PO BID 400 mL 3RF K21.9 - Gastro-esophageal reflux disease without esophagitis fluticasone propion-salmeterol 500-50 mcg/dose 1 ea PO BID 60 ea 6RF TODAY'S VISIT: Patient is here today for follow-up. Patient reports that since last time I have seen her she has gained few lb. Patient states that she feels bloated postprandially. Patient states that she is not moving her bowels well despite taking Citrucel. Patient states that she drinks plenty fluids. Reports that when she used to eat more protein and stayed away from carbs she was not as bloated. Patient reports that her blood sugars have been pretty stable. Patient reports dyspepsia without dysphagia or odynophagia. Patient states that she had colonoscopy at [facility] has not brought records. Will try to get records from the hospital. Patient denies any nausea or vomiting. Patient denies any melena, hematochezia, unintentional weight loss or ribbon like stools. [facility] Medical History (Updated 03/16/23 @ 09:50 by Yasir Dahl MD) Other bursal cyst, right hip Atherosclerotic cardiovascular disease Permanent atrial fibrillation Abnormal nuclear stress test Restless leg syndrome CHF (congestive heart failure) DM2 (diabetes mellitus, type 2) Essential hypertension Autoimmune thyroiditis Overweight (BMI 25.0-29.9) Arthritis Depression with anxiety Diabetes Addiction, opium Moderate persistent asthma Vitamin D deficiency Hypertension Osteopenia Obesity (BMI 30-39.9) Dyslipidemia Hypothyroidism (acquired) Diabetes type 2, uncontrolled Surgical History Hx of cataract surgery Hx of arthroscopy of knee History of radical hysterectomy Family History Father Diabetes Mother No problems noted. Son Substance use disorder Social History Household Members: Unknown / Unable to assess Housing: Unknown / Unable to assess Do you presently have visiting nurse or other home services: Yes Unable to assess alcohol history related to: Unable to respond Alcohol intake: never Comment: 1:1 sitter Patient Tobacco Use Status: Former Tobacco user e-Cigarette/Vaping Use: Never Used Second Hand Smoke Exposure: No Substance Use Type: Unknown Advance Directives Date on File: 07/30/22 service: No Current occupational status: retired Review of Systems Const Denies weight gain and Denies weight loss ENT Reports no additional complaints, Denies dysphagia and Denies odynophagia Card Reports no additional complaints Resp Reports no additional complaints GI Reports abdominal pain (epigastric), Denies belching, Denies melena, Reports bloating, Reports constipation, Denies dysphagia, Denies excessive flatus, Denies dyspepsia, Reports heartburn, Denies diarrhea, Denies loose stools, Denies nausea, Denies odynophagia and Denies vomiting Reports no additional complaints Musc Reports no additional complaints Neuro Reports no additional complaints Psych Reports no additional complaints Endo Reports no additional complaints Physical Exam Vital Signs: Last Vital Signs Pulse 75 04/01/23 14:25 BP 126/57 L 04/01/23 14:25 BMI result Body Mass Index 28.3 Const General: healthy appearing, no acute distress and well developed Nutritional Appearance: well nourished Orientation/consciousness: patient oriented x3 Resp Effort & Inspection: normal respiratory effort, able to speak in complete sentences, no tracheal deviation and symmetric chest movement Auscultation: clear to auscultation bilaterally Cardio Rate: regular rate GI Inspection: Yes normal to inspection and No distended Palpation (GI): Soft to palpation, not firm, nontender and No hepatosplenomegaly present Auscultation: normal bowel sounds General: Yes no CVA tenderness Back/Spine/Pelvis Back: no CVA tenderness Skin General skin exam: elasticity normal, turgor normal and dry skin Neuro General: patient oriented x3 Psych Appearance: grossly normal Mental Status: mental status grossly normal Assessment & Plan Assessment & Plan (1) Dyspepsia: Code(s): R10.13 - Epigastric pain (2) Postprandial abdominal bloating: Code(s): R14.0 - Abdominal distension (gaseous) (3) GERD (gastroesophageal reflux disease): Code(s): K21.9 - Gastro-esophageal reflux disease without esophagitis Qualifiers: Esophagitis presence: esophagitis presence not specified Qualified Code(s): K21.9 - Gastro-esophageal reflux disease without esophagitis (4) Constipation: Code(s): K59.00 - Constipation, unspecified Qualifiers: Constipation type: slow transit constipation Qualified Code(s): K59.01 - Slow transit constipation Plan Patient will try Trulance. Continues to have dyspepsia will change her PPI to pantoprazole. Patient was also encouraged to avoid dietary triggers late night snacking. Staying upright for minimal 3 hours after meals discussed with patient. Frequent abdominal bloating most likely related to the food that she eats. Patient will try to change her diet. Discussed with her low FODMAP diet. List of food recommended as well as list of food to avoid given to patient. I will see her in 5 weeks. Will try to obtain records of her last colonoscopy from [facility]. We will discuss going for colonoscopy and possible upper endoscopy. Patient is agreeable to this plan and verbalizes understanding of instructions. She was given the opportunity to ask questions and all questions answered Thank you for allowing me to participate in her care Medications: New plecanatide (Trulance) 3 mg PO DAILY 30 tabs 3RF K59.09 - Other constipation pantoprazole take one tablet half an hour before breakfast 40 mg PO DAILY 30 tabs 2RF K21.9 - Gastro-esophageal reflux disease without esophagitis Coding Level of Care Code Est Pt Level 4 (05264) Diagnoses Dyspepsia R10.13 Postprandial abdominal bloating R14.0 Gastroesophageal reflux disease, unspecified whether esophagitis present K21.9 Esophagitis presence: esophagitis presence not specified Slow transit constipation K59.01 Constipation type: slow transit constipation Time Spent (min) 35 Comment 25 minutes spent with patient and additional 10 minutes spent reviewing her records
== END 2023-04-01 15:00 | disposition home or self-care (01) ==
PROVIDERS: PCP Student in an Organized Health Care Education/Training Program; Visit Provider Nurse Practitioner Family
DX: R10.13 Epigastric pain (principal); R14.0 Abdominal distension (gaseous); K21.9 Gastro-esophageal reflux disease without esophagitis; K59.01 Slow transit constipation
CPT/HCPCS: 99214

== ENCOUNTER → 2023-04-01 14:21 | Outpatient (BNVA) | payer OTHER, SELFPAY | PROVIDERS: PCP Student in an Organized Health Care Education/Training Program; Visit Provider Nurse Practitioner Family | DX: K59.01 Slow transit constipation (principal); K21.9 Gastro-esophageal reflux disease without esophagitis; R10.13 Epigastric pain; R14.0 Abdominal distension (gaseous) | CPT/HCPCS: 99212 ==

== ENCOUNTER 2023-05-06 10:36 | Outpatient (AMB) | payer OTHER, SELFPAY ==
--- NOTE | 2023-05-06 10:48 | MHC.OFFVIS ---
Intake Vital Signs 05/06/23 10:52 Height 5 ft 1 in Weight 146 lb BMI 27.6 BP 133/59 L Blood Pressure Location Lt brachial Position Sitting Pulse 81 Intake Visit Reasons: CIC, Gerd follow up Intake Note: Patient follow up for GERD. Patient cc: left side abdomen with pain and inflammation, denies any other GI issues. Coal Bagger Required: Yes Coal Bagger Name: [facility] Interpeter Accompanied by: Family/Other Allergies aspirin [ASPIRIN] Allergy (Severe, Verified 05/06/23 10:48) ANAPHYLAXIS Seasonal Allergies Allergy (Intermediate, Verified 05/06/23 10:48) asthma, itch, rash HPI CIC, Gerd follow up HPI Details LAST VISIT Dyspepsia Postprandial abdominal bloating GERD (gastroesophageal reflux disease) Constipation Plan Patient will try Trulance. Continues to have dyspepsia will change her PPI to pantoprazole. Patient was also encouraged to avoid dietary triggers late night snacking. Staying upright for minimal 3 hours after meals discussed with patient. Frequent abdominal bloating most likely related to the food that she eats. Patient will try to change her diet. Discussed with her low FODMAP diet. List of food recommended as well as list of food to avoid given to patient. I will see her in 5 weeks. Will try to obtain records of her last colonoscopy from [facility]. We will discuss going for colonoscopy and possible upper endoscopy. Patient is agreeable to this plan and verbalizes understanding of instructions. She was given the opportunity to ask questions and all questions answered ? Thank you for allowing me to participate in her care Medications New plecanatide (Trulance) 3 mg PO DAILY 30 tabs 3RF K59.09 pantoprazole take one tablet half an hour before breakfast 40 mg PO DAILY 30 tabs 2RF K21.9 TODAY'S VISIT Patient is here today for follow-up. Patient reports that since last time I have seen her she has been doing much better. Patient reports that she has been taking pantoprazole in the morning and her symptoms of acid reflux are suppressed. Patient reports that she is moving her bowels without any issues. Takes Trulance since last visit and is able to move her bowels daily patient has 1-2 bowel movements daily. Denies any diarrhea. Patient feels like she is moving her bowels and empty them completely. Patient denies melena, hematochezia, unintentional weight loss or ribbon like stools. However patient does report occasional left lower quadrant pain. Patient reports that the pain is there randomly it is not related to food or bowel movements. Patient denies any nausea or vomiting. Denies any dyspepsia, dysphagia or odynophagia. [facility] Medical History (Updated 03/16/23 @ 09:50 by Yasir Dahl MD) Other bursal cyst, right hip Atherosclerotic cardiovascular disease Permanent atrial fibrillation Abnormal nuclear stress test Restless leg syndrome CHF (congestive heart failure) DM2 (diabetes mellitus, type 2) Essential hypertension Autoimmune thyroiditis Overweight (BMI 25.0-29.9) Arthritis Depression with anxiety Diabetes Addiction, opium Moderate persistent asthma Vitamin D deficiency Hypertension Osteopenia Obesity (BMI 30-39.9) Dyslipidemia Hypothyroidism (acquired) Diabetes type 2, uncontrolled Surgical History Hx of cataract surgery Hx of arthroscopy of knee History of radical hysterectomy Family History Father Diabetes Mother No problems noted. Son Substance use disorder Social History Household Members: Unknown / Unable to assess Housing: Unknown / Unable to assess Do you presently have visiting nurse or other home services: Yes Unable to assess alcohol history related to: Unable to respond Alcohol intake: never Comment: 1:1 sitter Patient Tobacco Use Status: Former Tobacco user e-Cigarette/Vaping Use: Never Used Second Hand Smoke Exposure: No Substance Use Type: Unknown Advance Directives Date on File: 07/30/22 service: No Current occupational status: retired Review of Systems Const Denies weight gain and Denies weight loss ENT Reports no additional complaints, Denies dysphagia and Denies odynophagia Card Reports no additional complaints Resp Reports no additional complaints GI Denies abdominal pain, Denies belching, Denies melena, Denies bloating, Denies change in bowel habits, Denies dysphagia, Denies excessive flatus, Denies dyspepsia, Denies heartburn, Denies diarrhea, Denies loose stools, Denies nausea, Denies odynophagia and Denies vomiting Musc Reports no additional complaints Neuro Reports no additional complaints Psych Reports no additional complaints Endo Reports no additional complaints Physical Exam Vital Signs: Last Vital Signs Pulse 81 05/06/23 10:52 BP 133/59 L 05/06/23 10:52 BMI result Body Mass Index 27.6 Const General: healthy appearing, no acute distress and well developed Nutritional Appearance: well nourished Orientation/consciousness: patient oriented x3 Resp Effort & Inspection: normal respiratory effort, able to speak in complete sentences, no tracheal deviation and symmetric chest movement Auscultation: clear to auscultation bilaterally Cardio Rate: regular rate GI Inspection: Yes normal to inspection and No distended Palpation (GI): Soft to palpation, not firm, nontender and No hepatosplenomegaly present Auscultation: normal bowel sounds General: Yes no CVA tenderness Back/Spine/Pelvis Back: no CVA tenderness Skin General skin exam: elasticity normal, turgor normal and dry skin Neuro General: patient oriented x3 Psych Appearance: grossly normal Mental Status: mental status grossly normal Assessment & Plan Assessment & Plan (1) Dyspepsia: Code(s): R10.13 - Epigastric pain (2) Postprandial abdominal bloating: Code(s): R14.0 - Abdominal distension (gaseous) (3) GERD (gastroesophageal reflux disease): Code(s): K21.9 - Gastro-esophageal reflux disease without esophagitis Qualifiers: Esophagitis presence: esophagitis presence not specified Qualified Code(s): K21.9 - Gastro-esophageal reflux disease without esophagitis (4) Constipation: Code(s): K59.00 - Constipation, unspecified Qualifiers: Constipation type: chronic idiopathic constipation Qualified Code(s): K59.04 - Chronic idiopathic constipation (5) LLQ abdominal pain: Code(s): R10.32 - Left lower quadrant pain Plan Continue pantoprazole in the morning. Avoid dietary triggers and late night snacking. Staying upright for minimum 3 hours after meals discussed with patient. Patient will continue taking Trulance. However patient does report left lower quadrant pain we will add stool softener in the evening. Patient was encouraged to increase fluid intake and activity to promote better bowel motility. Patient wants manage her diet better. Wants to lose weight. We did discuss trying berberine 1 capsule with breakfast to see if she will have less cravings. I will see patient in 4 months, sooner on as needed basis. Patient is agreeable to this plan and verbalizes understanding of instructions. She was given the opportunity to ask questions and all questions answered. Thank you for allowing me to participate in her care A 2021 review of 18 studies that examined the effect of berberine on body weight and 23 that examined its effect on body mass index (BMI; a value based on weight and height that may help determine whether a person has a healthy weight) found significant decreases in both weight and BMI in people who took berberine.?(https://www.[facility].nih.gov/health/udymgklls-ilg-pejlkn-uoqb-qfbp-mdg-pyvr-lk-gwdr) Orders: Referrals Legal Officer Nutrition Referral E11.65 - Type 2 diabetes mellitus with hyperglycemia, E66.9 - Obesity, unspecified Medications: New docusate sodium 100 mg PO BEDTIME 90 caps 3RF K59.00 - Constipation, unspecified Coding Level of Care Code Est Pt Level 4 (99911) Diagnoses Dyspepsia R10.13 Postprandial abdominal bloating R14.0 Gastroesophageal reflux disease, unspecified whether esophagitis present K21.9 Esophagitis presence: esophagitis presence not specified Chronic idiopathic constipation K59.04 Constipation type: chronic idiopathic constipation LLQ abdominal pain R10.32 Time Spent (min) 35 Comment 25 minutes spent with patient and additional 10 minutes spent reviewing her records
[2023-05-06 10:52] VITALS: BP 133/59; PULSE 81; BMI 27.6
== END 2023-05-06 11:18 | disposition home or self-care (01) ==
PROVIDERS: PCP Student in an Organized Health Care Education/Training Program; Visit Provider Nurse Practitioner Family
DX: R10.13 Epigastric pain (principal); R14.0 Abdominal distension (gaseous); K21.9 Gastro-esophageal reflux disease without esophagitis; K59.04 Chronic idiopathic constipation; R10.32 Left lower quadrant pain
CPT/HCPCS: 99214

== ENCOUNTER → 2023-05-06 10:36 | Outpatient (BNVA) | payer OTHER, SELFPAY | PROVIDERS: PCP Student in an Organized Health Care Education/Training Program; Visit Provider Nurse Practitioner Family | DX: K59.04 Chronic idiopathic constipation (principal); K21.9 Gastro-esophageal reflux disease without esophagitis; R10.32 Left lower quadrant pain; R14.0 Abdominal distension (gaseous); R10.13 Epigastric pain | CPT/HCPCS: 99212 ==

== ENCOUNTER 2023-06-06 09:48 | Outpatient (AMB) | payer OTHER, SELFPAY ==
--- NOTE | 2023-06-06 09:55 | A.OFFVIS_ITS ---
Intake VS Expanded 06/06/23 10:04 Height 5 ft 1 in Weight 142 lb 6.698 oz BMI 26.9 Intake Visit Reasons: Obesity Allergies aspirin [ASPIRIN] Allergy (Severe, Verified 05/06/23 10:48) ANAPHYLAXIS Seasonal Allergies Allergy (Intermediate, Verified 05/06/23 10:48) asthma, itch, rash HPI Nutrition Presentation Details Pt presents for MNT for T2DM with hyperglycemia and obesity The Pt was referred by mower sharpener specialist, Mi Buenrostro Pt presents with GALLEY STRIPPER during this appointment. The Pt brought glucometer, and reports monitoring blood glucose, however not able to retrieve information due to low battery. Pt was advised to change battery on monitor and Pt returned demo on how to change battery and type of battery for freestyle monitor. Pt reports having increased snacks at night time , choosing tea , crackers, and cheese B/L: Mateusz- oatmeal, coffee with milk or cream Dinner: rice, brown with chicken and potatoes, water 8pm + crackers, cheese, tea physical activity: uses cane to walk ETOH/SMoking: denies Pt complains of bloating sensation after meals, reports having this symptom after consuming milk however has not switched to lactose free choices. Reports taking lactaid pill, 30 min before or after eating the lactose containing food Nutrition Needs Calculation Weight 142 lb Estimated kcal needs (kcal/day) 1,613 (25 kcal/kg bw ) Estimated protein needs (gm/day) 65 (1g/kg bw) Estimated fluid needs (mls/day) 1,600 (25 ml/kg bw) Diagnosis Nutrition problem #1 food nutri know defi As related to (etiology) #1 diagnosis As evidenced by (sign/symptom) #1 knowledge deficit of diet Most Recent Diabetes Results: No Data to Display [facility] Medical History (Updated 03/16/23 @ 09:50 by Yasir Dahl MD) Other bursal cyst, right hip Atherosclerotic cardiovascular disease Permanent atrial fibrillation Abnormal nuclear stress test Restless leg syndrome CHF (congestive heart failure) DM2 (diabetes mellitus, type 2) Essential hypertension Autoimmune thyroiditis Overweight (BMI 25.0-29.9) Arthritis Depression with anxiety Diabetes Addiction, opium Moderate persistent asthma Vitamin D deficiency Hypertension Osteopenia Obesity (BMI 30-39.9) Dyslipidemia Hypothyroidism (acquired) Diabetes type 2, uncontrolled Surgical History Hx of cataract surgery Hx of arthroscopy of knee History of radical hysterectomy Family History Father Diabetes Mother No problems noted. Son Substance use disorder Social History Household Members: Unknown / Unable to assess Housing: Unknown / Unable to assess Do you presently have visiting nurse or other home services: Yes Unable to assess alcohol history related to: Unable to respond Alcohol intake: never Comment: 1:1 sitter Patient Tobacco Use Status: Former Tobacco user e-Cigarette/Vaping Use: Never Used Second Hand Smoke Exposure: No Substance Use Type: Unknown Advance Directives Date on File: 07/30/22 service: No Current occupational status: retired Assessment & Plan Assessment & Plan (1) Diabetes type 2, uncontrolled: Code(s): E11.65 - Type 2 diabetes mellitus with hyperglycemia Plan: Wt: 64 Kg ( 05/2023 ) Est kcal needs : 1600 (as per 25 kcal/kg bw) (40% carb, 30% protein/fat) Est fluid needs as per 25 ml/d: 1600 Est prot per day as per 1 g/kg bw: 64 Recommend fiber intake : 8-10 g per day and gradually increase to 25-28 g per day for women and 35-38 g for men or as tolerated Recommend sodium intake per day : less than 2000 mg Educated patient on: ( R = reviewed V = verbalizes understanding N/R = needs review N/A = not applicable * Food sources of carbohydrate, adequate serving sizes and its role in various health conditions: R * lactose free choices, when to take lactaid pills: R * Differences between complex carbohydrates a simple carbohydrates, role of fiber in diet: N/R * Lean protein sources of foods: R V NR * Differences between types of fats and role in diet (mono on saturated fat fatty acids, saturated fatty acids, trans fats): R basic * Food sources of sodium in salt and healthy modifications for heart health in kidney health: NR * Healthy plate method concept: R * Physical activity: Benefits a precaution: R * Hypoglycemia protocol (rule of 15): N/R * Dietary prevention of Hyperglycemia: R Patient Instructions: Choose lactose free milk , soy milk , almond milk , or take lactaid pill with first bite of lactose containing food Reduce on fried food items - choose baked , steam, remove skins, keep active as able, waking, chair exercises keep hydrated by having water with meals /snacks , when eating at home or away from home Coding Level of Care Code Nutr Indiv Subseq (63240) Diagnoses Diabetes type 2, uncontrolled E11.65 Time Spent (min) 30
[2023-06-06 10:04] VITALS: BMI 26.9
== END 2023-06-06 10:39 | disposition home or self-care (01) ==
PROVIDERS: PCP Student in an Organized Health Care Education/Training Program; Visit Provider Dietitian, Registered
DX: E11.65 Type 2 diabetes mellitus with hyperglycemia (principal)

== ENCOUNTER → 2023-06-06 09:48 | Outpatient (BNVA) | payer OTHER, SELFPAY | PROVIDERS: PCP Student in an Organized Health Care Education/Training Program; Visit Provider Dietitian, Registered | DX: E11.65 Type 2 diabetes mellitus with hyperglycemia (principal); E66.9 Obesity, unspecified; Z71.3 Dietary counseling and surveillance | CPT/HCPCS: 97803 ==

== ENCOUNTER 2023-08-17 11:13 | Outpatient (REF) | payer OTHER, SELFPAY ==
[2023-08-17 13:35] LABS: Estimated Average Glucose 128 mg/dL; Hemoglobin A1c % 6.1 % (<6.0)
[2023-08-17 14:11] LABS: Alanine Aminotransferase 19 U/L (0-31); Albumin Level 4.3 g/dL (3.5-5.0); Alkaline Phosphatase 70 U/L (39-117); Anion Gap 11 (12-20); Aspartate Amino Transferase 20 U/L (5-31); Bilirubin Total 0.7 mg/dL (0.0-1.0); Blood Urea Nitrogen 14 mg/dL (9-16); Calcium 10.1 mg/dL (8.4-10.2); Carbon Dioxide 26 mmol/L (22-29); Chloride 107 mmol/L (96-108); Cholesterol 211 mg/dL (<200); Estimated Glomerular Filt Rate > 60; Free T4 (Free Thyroxine) 0.77 ng/dL (0.71-1.85); Glucose Random 86 mg/dL (60-115); HDL Cholesterol 51 mg/dL (>40); LDL Cholesterol Calculated 124 mg/dL (<100); Potassium 4.1 mmol/L (3.3-5.1); Sodium 140 mmol/L (135-145); Total Protein 7.6 g/dL (6.5-8.0); Triglycerides 183 mg/dL (<150); Vitamin D 25-OH Total 37.1 ng/mL (>30)
[2023-08-17 14:35] LABS: Folate 12.2 ng/mL (> or = 4.0); Vitamin B12 555 pg/mL (200-900)
[2023-08-20 01:48] LABS: TS Negative Control Passed; TS Panel A 0; TS Panel B 1; TS Positive Control Passed; TSpotTB Negative (Negative)
== END 2023-08-17 11:14 | disposition home or self-care (01) ==
LOC: HO.HHCL 11:13
PROVIDERS: Visit Provider Student in an Organized Health Care Education/Training Program
DX: Z11.1 Encounter for screening for respiratory tuberculosis (principal); E11.9 Type 2 diabetes mellitus without complications
CPT/HCPCS: 36415; 80053; 80061; 82306; 82607; 82746; 83036; 84439; 84443; 86481

== ENCOUNTER 2023-08-19 15:53 | Emergency (ER) | payer OTHER, SELFPAY ==
--- NOTE | ~2023-08-19 | CT_ITS ---
EXAMINATION: CT HEAD WITHOUT CONTRAST CLINICAL INFORMATION: Fall. Trauma. COMPARISON: CT head dated 09/26/2022. TECHNIQUE: Contiguous axial imaging was performed from the skull base to vertex without intravenous administration of contrast. This CT examination was performed using dose optimization techniques as appropriate, variously including the following: *Automated exposure control *Adjustment of mA and/or kV according to patient size (this includes techniques or standardized protocols for targeted exams where dose is matched to indication/reason for exam; i.e. extremities or head) *Use of iterative reconstruction technique DLP: 761.64 mGy-cm FINDINGS: There is no acute intracranial hemorrhage. There is no evidence of acute/subacute cerebral or cerebellar infarction. There is mild microvascular ischemic change. There is no midline shift or mass effect. No extra-axial fluid collection. The ventricles are normal in size. The ocular lenses are surgically absent. The orbits are otherwise within normal limits. There is a small right frontal scalp hematoma. The calvarium appears intact. There is mild scattered paranasal sinus mucosal disease. The mastoid air cells are well aerated. CT/CT head/brain wo IV con IMPRESSION: The examination is somewhat limited secondary to motion artifact. The posterior fossa and vertex of the head are most severely affected by motion artifact. Given these limitations, there is no acute intracranial abnormality. There is a small right frontal scalp hematoma.
--- NOTE | ~2023-08-19 | XR_ITS ---
EXAMINATION: XR HIP, RIGHT CLINICAL INFORMATION: Fall, right-sided hip pain. COMPARISON: Radiograph right hip 12/29/2022. TECHNIQUE: Two views of the right hip. FINDINGS: No acute fracture or subluxation. 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 Symmetric SI joints. Pelvic ring and pubic symphysis are maintained. Partially seen lumbosacral spinal fusion hardware. No significant soft tissue abnormality. XR/XR hip RT w PEL1V IMPRESSION: 1. No acute fracture or subluxation. 2. 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
--- NOTE | ~2023-08-19 | CT_ITS ---
EXAMINATION: CT CERVICAL SPINE WITHOUT CONTRAST CLINICAL INFORMATION: Fall. COMPARISON: CT cervical spine dated 09/26/2022. TECHNIQUE: Noncontrast computed tomography of the cervical spine was performed. This CT examination was performed using dose optimization techniques as appropriate, variously including the following: *Automated exposure control *Adjustment of mA and/or kV according to patient size (this includes techniques or standardized protocols for targeted exams where dose is matched to indication/reason for exam; i.e. extremities or head) *Use of iterative reconstruction technique DLP: 321.61 mGy-cm FINDINGS: The vertebral bodies and posterior elements are anatomically aligned. Vertebral body heights are maintained. There is degenerative disc disease at C5-C6 and C6-C7 characterized by intervertebral disc space narrowing, endplate sclerosis, and marginal osteophytosis. The C1-C2 relationship is anatomic. The dens is intact. There is no acute cervical spine fracture. The prevertebral soft tissue is normal in appearance. Paraspinal soft tissue is normal in appearance. The thyroid gland is normal in appearance. The lung apices are clear. CT/CT cervical spine wo IV con IMPRESSION: No acute osseous cervical spine abnormality. Fleischner guidelines were followed.
[2023-08-19 16:02] VITALS: BP 150/84; BP 156/77; PULSE 84; PULSE 98; RESP 16; TEMP 36.7; O2SAT 98; O2SAT 99; BMI 29.5
--- OUTSIDE RECORDS SUMMARY | 2023-08-19 16:09 | XMS_ITS | Continuity of Care Document ---
Author Organization [facility] Address [address] [place] [id number] Care Team Providers Care Stain Wiper Name Role Phone Not on Staff, PCP Primary Care Physician Unavail able Encounter [facility] Date(s): 11/02/22 - 11/08/[address] [address]- Encounter Diagnosis Frequent falls(Final) - 11/02/22 Delirium(Final) - 11/02/22 Atrial fibrillation with RVR(Final) - 11/02/22 Discharge Disposition: A-Transfer SNF Attending Physician: Louie Garrison MD Admitting Physician: Wily Bella MD Referring Physician: Not on Staff, Referring MD Allergies, Adverse Reactions, Alerts Substance Reaction Severity Status aspirin throat gets tight Active Immunizations Given and Recorded Vaccine Date Status Refusal Reason pneumococcal 20-valent conjugate vaccine 09/08/22 Recorded tetanus/diphtheria/pertussis, acel(Tdap) 09/08/22 Recorded influenza virus vaccine, inactivated 12/17/21 Miller rded influenza virus vaccine, inactivated 12/04/20 Miller rded [id number] 12y+ bivalent booster vax 12/17/21 Recorded SARS-CoV-2 (COVID-19) mRNA BNT-162b2 vac 11/06/20 Recorded SARS-CoV-2 (COVID-19) mRNA BNT-162b2 vac 10/16/20 Recorded SARS-CoV-2 (COVID-19) mRNA BNT-162b2 vac 09/25/20 Recorded Medications acetaminophen 325 mg oral tablet 975 mg, By Mouth, Every 6 hours, Temperature Greater than 100.5, Refills 0, Maintenance, 11/08/22 12:31:00 EDT, Partial fill upon patient request if the prescription is for a schedule II opioid drug. Start Date: 11/08/22 Status: Ordered calcium (as citrate)-vitamin D 315 mg-250 intl units oral tablet 1 tablet, By Mouth, 2 times a day, # 60 tablet, 0 Refills, Maintenance, 09/22/21 16:56:00 EDT, Tablet, Partial fill upon patient request if the prescription is for a schedule II opioid drug. Start Date: 09/22/21 Status: Ordered Cetirizine = 10 mg, By Mouth, Daily, 0 Refills, Maintenance, 11/03/22 19:49:00 EDT, Partial fill upon patient request if the prescription is for a schedule II opioid drug. Start Date: 11/03/22 Status: Ordered Jardiance 25 mg oral tablet 1 tablet = 25 mg, By Mouth, Daily in AM, # 30 tablet, 0 Refills, Maintenance, 11/03/22 19:53:00 EDT, Tablet, Partial fill upon patient request if the prescription is for a schedule II opioid drug. Start Date: 11/03/22 Status: Ordered Lipitor 10 mg oral tablet 4 tablet = 40 mg, By Mouth, Daily, # 30 tablet, 0 Refills, Maintenance, 09/22/21 16:59:00 EDT, Partial fill upon patient request if the prescription is for a schedule II opioid drug. Start Date: 09/22/21 Status: Ordered metoprolol 25 mg oral tablet 25 mg, By Mouth, 2 times a day, Refills 0, Maintenance, 11/08/22 12:31:00 EDT, Partial fill upon patient request if the prescription is for a schedule II opioid drug. Start Date: 11/08/22 Status: Ordered metoprolol 25 mg oral tablet 25 mg, Tablet, By Mouth, 11/08/22 9:00:00 EDT Start Date: 11/08/22 Stop Date: 11/08/22 Status: Completed Montelukast = 10 mg, By Mouth, Daily, 0 Refills, Maintenance, 09/22/21 16:58:00 EDT, Partial fill upon patient request if the prescription is for a schedule II opioid drug. Start Date: 09/22/21 Status: Ordered Nystatin Ointment 1 applicator, Topically, 3 times a day, 0 Refills, Maintenance, Ointment Start Date: 11/08/22 Status: Ordered Omeprazole = 20 mg, By Mouth, Daily, 0 Refills, Maintenance, 09/22/21 17:00:00 EDT, Partial fill upon patient request if the prescription is for a schedule II opioid drug. Start Date: 09/22/21 Status: Ordered oxyCODONE 5 mg oral tablet 2.5 mg, By Mouth, Every 6 hours, PRN, Refills 0, Tot. Refills 0, Maintenance, Pain , Severe, 11/08/22 12:31:00 EDT, Partial fill upon patient request if the prescription is for a schedule II opioid drug. Start Date: 11/08/22 Status: Ordered oxyCODONE 5 mg oral tablet 2.5 mg, Tablet, By Mouth, Every 6 hours, PRN for Pain , Severe, Routine, 11/06/22 12:21:00 EDT Start Date: 11/06/22 Stop Date: 11/09/22 Status: Discontinued Sinemet 25 mg-100 mg oral tablet 1 tablet, By Mouth, 3 times a day, # 270 tablet, 0 Refills, Maintenance, 11/03/22 19:54:00 EDT, Tablet, Partial fill upon patient request if the prescription is for a schedule II opioid drug. Start Date: 11/03/22 Status: Ordered Synthroid 137 mcg, By Mouth, [...] opioid drug. Start Date: 09/22/21 Status: Ordered Xarelto 20 mg oral tablet 1 tablet = 20 mg, By Mouth, Daily in PM, # 30 tablet, 0 Refills, Maintenance, 11/03/22 19:56:00 EDT, Tablet, Partial fill upon patient request if the prescription is for a schedule II opioid drug. Start Date: 11/03/22 Status: Ordered Problem List Condition Confirmation Course Effective Dates Status Health St atus Informant Obese class I Confirmed Active Results Radiology Reports * Exam Date Time Procedure Performing Provider Status 11/07/22 12:33 PM MRI Brain W+W/O Contrast Lemuel Castro Jackie; Auth (Verified) Notes: (MRI Brain W+W/O Contrast) Reason For Exam: Unexplained dense encephalopathy / agitation;Other: RESULT: MRI Brain W+W/O Contrast MRI Brain W+W/O Contrast INDICATION / CLINICAL QUESTION: Reason: Other:; Unexplained dense encephalopathy agitation; Clinical Question(s): Other:; Extensive differential diagnosis, from COVID-19 encephalitis to SNP Lewy bodydementia; Special Instructions: DUE TO AGITATION WILL NEED SEDATION ANESTHESIA PRESENT. PLEASE BOOKWITH FIRST AVAILABLE ANESTHESIA SLOT.; Order Comment: Please see Reference Text for complete list of contraindications Other: TECHNIQUE: MRI of the brain was performed with and without contrast utilizing sagittal and axial T1, axial T2, axial FLAIR, axial SWAN, and axial DWI sequences, and post-contrast 3D T1 ISAACS with multiplanar reformats. 15 mL of Clariscan was administered intravenously. COMPARISON: CTA 11/02/2022 FINDINGS: Minimal FLAIR hyperintensity is present in the periventricular white matter at the superolateral margins of the bodies of the lateral ventricles. A 5 mm FLAIR hyperintense lesion is noted involving the anterior lateral margin of the right putamen. No signal abnormality is noted within the [place] parenchyma elsewhere. No abnormal enhancement is noted. No focal atrophy is appreciated. A moderate degree of diffuse cerebral tissue loss is present, roughly age appropriate. The foramen magnum is normal.No vascular abnormality is identified. There is no evidence of obstructive hydrocephalus. No extra-axial collection is noted. The orbits are normal. Minor mucosal thickening is present in the paranasal sinuses without an air-fluid level. The upper cervical cord, canal and spine are normal. IMPRESSION: Essentially normal MRI of the brain without and with gadolinium enhancement. WSN: [id number] Ordering Physician: Louie Garrison Dictated By: Efren Cazares MD Dictated Date/Time: 11/07/22 12:58 p Reviewed By: Efren Cazares MD Signed By: Efren Cazares MD Signed Date/Time: 11/07/22 12:58 pm Transcribed By: ERIC Transcribed Date/Time: 11/07/22 12:44 pm * Exam Date Time Procedure Performing Provider Status 11/03/22 3:57 PM Chest Portable Lisa Ricardo; Auth (Verified) Notes: (Chest Portable) Reason For Exam: ngt placement;Tube Placement RESULT: Chest Portable Chest Portable Reason: Tube Placement; ngt placement; Clinical Question(s): Tube Placement COMPARISON: CXR 11/03/2022 FINDINGS: LINES AND TUBES: Enteric tube courses below the diaphragm with its tip near the proximal stomach. LUNGS AND PLEURA: Clear lungs. Normal pulmonary vascularity. No pleural effusion. No pneumothorax. HEART, MEDIASTINUM AND DARRIN: Heart is normal in size. Aortic calcifications. Normal mediastinal and hilar contour. BONES AND SOFT TISSUES: No acute abnormality. Calcific tendinitis of the left rotator cuff. IMPRESSION: Well-positioned enteric tube. I have personally reviewed the images and I agree with this report. WSN: [id number] Ordering Physician: Beatrice Kaur Dictated By: Calvin Jara MD Dictated Date/Time: 11/03/22 4:52 pm Reviewed By: Vamshi Amador MD Signed By: Vamshi Amador MD Signed Date/Time: 11/03/22 4:57 pm Transcribed By: ERIC Transcribed Date/Time: 11/03/22 4:35 pm * Exam Date Time Procedure Performing Provider Status 11/03/22 12:16 PM Chest Portable Bertram King; Auth (V erified) Notes: (Chest Portable) Reason For Exam: Tube Placement RESULT: Chest Portable Chest Portable INDICATION: NG tube placement COMPARISON: 11/02/2022 FINDINGS: LINES AND TUBES: Enteric feeding tube coursing below the diaphragm, tip not included on this examination.. LUNGS AND PLEURA: Improved left lung aeration and decreased bilateral diffuse hazy opacity. Low lung volumes. No pleural effusion. No pneumothorax. HEART, MEDIASTINUM AND DARRIN: Heart is normal in size. Aorta is somewhat tortuous and mildly calcified. BONES AND SOFT TISSUES: No acute abnormality. IMPRESSION: Improved bilateral diffuse hazy opacity. I have personally reviewed the images and I agree with this report. WSN: [id number] Ordering Physician: Beatrice Kaur Dictated By: Carlo Joshi MD Dictated Date/Time: 11/03/22 4:52 pm Reviewed By: Phil Cazares MD, V Signed By: Phil Cazares MD, V Signed Date/Time: 11/03/22 4:57 pm Transcribed By: ERIC Transcribed Date/Time: 11/03/22 2:27 pm * Exam Date Time Procedure Performing Provider Status 11/02/22 8:[address] Lumbar Spine W/O Contrast Carlos Pollock; Rosemary (Verified) Notes: (CT Lumbar Spine W/O Contrast) Reason For Exam: Spine fracture, lumbar, traumatic;Other: RESULT: CT Lumbar Spine W/O Contrast CT Lumbar Spine W/O Contrast Hx of Present Illness: Pt from home with AMS, multiple falls over the three weeks. + Blood thinners. Expect form states pt needs placement for rehab.; Reason: Other:; Spine fracture, lumbar, traumatic; Clinical Question(s): Fracture Dislocation CLINICAL QUESTION: Fracture/Dislocation TECHNIQUE: Thin section axial images were acquired through the lumbar spine. Bone and soft tissue algorithms were reconstructed along with coronal and sagittal reformats. Weight-based protocol using automatic tube modulation was used to optimize exposure parameters. CTDIvol Body: 31.80 mGy, DLP Body: 994 mGy*cm. COMPARISON: C-arm x-ray 09/24/2021 FINDINGS: Roller Stainer View Findings, Lines and Tubes: L4-S1 posterior fusion hardware Spine: Right L2 transverse process fracture may be acute. No other fracture is identified. L4-S1 posterior fusion hardware, position unchanged from 2021. Unchanged grade 1 anterolisthesis ofL4 on L5 without spondylolysis. Chronic appearing compression fracture of L3 vertebral body, with mild loss of height. Likely remote Severe facet arthritis bilaterally. Mild to moderate degenerative disc disease. Soft tissues: Atherosclerotic calcifications in the aorta. IMPRESSION: 1. Right L2 transverse process fracture may be acute. No other fracture identified. 2. Mild L3 superior endplate compression appears chronic. An actionable message ([place]) has been communicated via the [employer] system on 11/02/2022 10:11 PM, Message ID [id number]. I have personally reviewed the images and I agree with this report. WSN: [id number] Ordering Physician: Lucie Wright Dictated By: Blayne Gray MD Dictated Date/Time: 11/02/22 10:11 p Reviewed By: Phi Raya MD Signed By: Phi Raya MD Signed Date/Time: 11/02/22 10:16 pm Transcribed By: ERIC Transcribed Date/Time: 11/02/22 9:52 pm * Exam Date Time Procedure Performing Provider Status 11/02/22 8:[address] Cervical Spine W/O Contrast Carlos Worrell; Rosemary (Verified) Notes: (CT Cervical Spine W/O Contrast) Reason For Exam: Neck trauma, dangerous injury mechanism;Other: RESULT: CT Cervical Spine W/O Contrast CT Head/Brain W/O Contrast, CT Cervical Spine W/O Contrast INDICATION: Hx of Present Illness: Pt from home with AMS, multiple falls over the three weeks. + blood thinners. Expect form states pt needs placement for rehab.; Reason: Trauma; Clinical Question(s): Hematoma; Order Comment: TECHNIQUE: Noncontrast head CT using axial technique was reconstructed in axial and coronal planes.Noncontrast spiral CT through the cervical spine was formatted in 3 planes. Automatic tube modulation was used for the cervical spine and iterative dose reconstruction was used for both the head and cervical spine to optimize scan parameters and image quality. CTDIvol Body: 13.10 mGy, DLP Body: 279 mGy*cm. CTDIvol Head: 40.00 mGy, DLP Head: 671 mGy*cm. COMPARISON: None. FINDINGS: Roller Stainer View Findings, Lines and Tubes: None. BRAIN AND EXTRA-AXIAL SPACES: No parenchymal hemorrhage, midline shift, or mass effect. Douglas-white matter differentiation is wellpreserved. No acute infarct. Ventricles, sulci, and basilar cisterns are normal. Mild low-density white matter changes. No subarachnoid hemorrhage. No subdural or epidural collection. CALVARIUM, SKULL BASE, AND SOFT TISSUES: No fractures or suspicious bony lesions. The paranasal sinuses and mastoid air cells are clear. Visualized orbits and globes are intact. The extracranial soft tissues are unremarkable. CERVICAL SPINE: No fracture. No acute osseous abnormalities. Normal alignment. No locked or perched facet. Moderate multilevel degenerative disc space narrowingand end plate irregularity. Narrowing of the atlantodens interval with osteophyte formation. OTHER BONES: No acute abnormality. CERVICAL SOFT TISSUES AND LUNG APICES: Normal soft tissues. Visualized lung apices are clear. IMPRESSION: No acute intracranial abnormality. Mild chronic small vessel ischemic changes. WSN: [id number] Ordering Physician: Lucie Wright Dictated By: Tobias JHONSON, Sergio Barger Dictated Date/Time: 11/02/22 9:30 pm Reviewed By: Sergio Collado MD Signed By: Sergio Collado MD Signed Date/Time: 11/02/22 9:30 pm Transcribed By: ERIC Transcribed Date/Time: 11/02/22 9:27 pm * Exam Date Time Procedure Performing Provider Status 11/02/22 8:[address] Head/Brain W/O Contrast Carlos Villagran; Auth (Verified) Notes: (CT Head/Brain W/O Contrast) Reason For Exam: Trauma RESULT: CT Head/Brain W/O Contrast CT Head/Brain W/O Contrast, CT Cervical Spine W/O Contrast INDICATION: Hx of Present Illness: Pt from home with AMS, multiple falls over the three weeks. + blood thinners. Expect form states pt needs placement for rehab.; Reason: Trauma; Clinical Question(s): Hematoma; Order Comment: TECHNIQUE: Noncontrast head CT using axial technique was reconstructed in axial and coronal planes.Noncontrast spiral CT through the cervical spine was formatted in 3 planes. Automatic tube modulation was used for the cervical spine and iterative dose reconstruction was used for both the head and cervical spine to optimize scan parameters and image quality. CTDIvol Body: 13.10 mGy, DLP Body: 279 mGy*cm. CTDIvol Head: 40.00 mGy, DLP Head: 671 mGy*cm. COMPARISON: None. FINDINGS: Roller Stainer View Findings, Lines and Tubes: None. BRAIN AND EXTRA-AXIAL SPACES: No parenchymal hemorrhage, midline shift, or mass effect. Douglas-white matter differentiation is wellpreserved. No acute infarct. Ventricles, sulci, and basilar cisterns are normal. Mild low-density white matter changes. No subarachnoid hemorrhage. No subdural or epidural collection. CALVARIUM, SKULL BASE, AND SOFT TISSUES: No fractures or suspicious bony lesions. The paranasal sinuses and mastoid air cells are clear. Visualized orbits and globes are intact. The extracranial soft tissues are unremarkable. CERVICAL SPINE: No fracture. No acute osseous abnormalities. Normal alignment. No locked or perched facet. Moderate multilevel degenerative disc space narrowingand end plate irregularity. Narrowing of the atlantodens interval with osteophyte formation. OTHER BONES: No acute abnormality. CERVICAL SOFT TISSUES AND LUNG APICES: Normal soft tissues. Visualized lung apices are clear. IMPRESSION: No acute intracranial abnormality. Mild chronic small vessel ischemic changes. WSN: [id number] Ordering Physician: Lucie Wright Dictated By: Sergio Collado MD Dictated Date/Time: 11/02/22 9:30 pm Reviewed By: Sergio Collado MD Signed By: Sergio Collado MD Signed Date/Time: 11/02/22 9:30 pm Transcribed By: ERIC Transcribed Date/Time: 11/02/22 9:27 pm * Exam Date Time Procedure Performing Provider Status 11/02/22 8:10 PM Chest Single Frontal View Lacy Rowe; Modified Notes: (Chest Single Frontal View) Reason For Exam: falls;Other: RESULT: Chest Single Frontal View Chest Single Frontal View Hx of Present Illness: Pt from home with AMS, multiple falls over the three weeks. + Blood thinners. Expect form states pt needs placement for rehab.; Reason: Other:; falls; Clinical Question(s): Pneumonia; rib fractures COMPARISON: None. FINDINGS: LINES AND TUBES: None. LUNGS AND PLEURA: Diffuse hazy opacity involving the left lung. Prominent pulmonary vessels, with indistinct margins. No pleural effusion. No pneumothorax. HEART, MEDIASTINUM AND DARRIN: Heart is normal in size. Aorta is somewhat tortuous. Metallic density projecting over the paraspinal region. BONES AND SOFT TISSUES: No acute abnormality. IMPRESSION: Left greater than right diffuse hazy opacity could represent alveolar edema, atelectasis, pneumoniaor a combination. Metallic density projecting over the paraspinal region could be external to the patient. Correlate with history of any device insertion. I have personally reviewed the images and I agree with this report. WSN: [id number] Ordering Physician: Lucie Wright Dictated By: Harjit[Radiology] Owen JOHNSON Dictated Date/Time: 11/02/22 8:37 pm Reviewed By: Phi Raya MD Signed By: Phi Raya MD Signed Date/Time: 11/02/22 8:42 pm Transcribed By: ERIC Transcribed Date/Time: 11/02/22 8:28 pm * Exam Date Time Procedure Performing Provider Status 11/02/22 8:10 PM Humerus Min 2 Views Right Lacy Rowe; Auth (Verified) Notes: (Humerus Min 2 Views Right) Reason For Exam: Trauma RESULT: Humerus Min 2 Views Right Humerus Min 2 Views Right, 2 views Hx of Present Illness: Pt from home with AMS, multiple falls over the three weeks. + Blood thinners. Expect form states pt needs placement for rehab.; Reason: Trauma; Clinical Question(s): Fracture COMPARISON: None. FINDINGS: No fractures or bone lesions. The visualized portions of the joints are unremarkable. Normal soft tissues. IMPRESSION: No acute osseous abnormality. I have personally reviewed the images and I agree with this report. WSN: [id number] Ordering Physician: Lucie Wright Dictated By: Harjit[Radiology] Owen JOHNSON Dictated Date/Time: 11/02/22 8:19 pm Reviewed By: Phi Raya MD Signed By: Phi Raya MD Signed Date/Time: 11/02/22 8:24 pm Transcribed By: ERIC Transcribed Date/Time: 11/02/22 8:15 pm * Exam Date Time Procedure Performing Provider Status 11/02/22 8:10 PM Knee 1 or 2 Views Right Aquiles Rowe; Rosemary (Verified) Notes: (Knee 1 or 2 Views Right) Reason For Exam: known patella fracture;Trauma RESULT: Knee 1 or 2 Views Right Tibia/Fibula 2 Views Right, Knee 1 or 2 Views Right Hx of Present Illness: Pt from home with AMS, multiple falls over the three weeks. + Blood thinners. Expect form states pt needs placement for rehab.; Reason: Trauma; Clinical Question(s): Fracture; Order Comment: patient was too anxious ; spoke to dr and gonna ndiaye later 11 02 2022 18:03:25 EDT COMPARISON: None. FINDINGS: Comminuted displaced fracture of the patella with associated small knee joint effusion. No other fractures are identified. No malalignment at the knee or ankle. IMPRESSION: Comminuted patellar fracture. An actionable message ([place]) has been communicated via the [employer] system on 11/02/2022 8:18 PM, Message ID [id number]. I have personally reviewed the images and I agree with this report. WSN: [id number] Ordering Physician: Lucie Wright Dictated By: Harjit[Radiology] Owen JOHNSON Dictated Date/Time: 11/02/22 8:18 pm Reviewed By: Phi Raya MD Signed By: Phi Raya MD Signed Date/Time: 11/02/22 8:23 pm Transcribed By: ERIC Transcribed Date/Time: 11/02/22 8:15 pm * Exam Date Time Procedure Performing Provider Status 11/02/22 8:10 PM Tibia/Fibula 2 Views Right Link Rowe; Auth (Verified) Notes: (Tibia/Fibula 2 Views Right) Reason For Exam: Trauma RESULT: Tibia/Fibula 2 Views Right Tibia/Fibula 2 Views Right, Knee 1 or 2 Views Right Hx of Present Illness: Pt from home with AMS, multiple falls over the three weeks. + Blood thinners. Expect form states pt needs placement for rehab.; Reason: Trauma; Clinical Question(s): Fracture; Order Comment: patient was too anxious ; spoke to and jose ndiaye later 11 02 2022 18:03:25 EDT COMPARISON: None. FINDINGS: Comminuted displaced fracture of the patella with associated small knee joint effusion. No other fractures are identified. No malalignment at the knee or ankle. IMPRESSION: Comminuted patellar fracture. An actionable message ([place]) has been communicated via the [employer] system on 11/02/2022 8:18 PM, Message ID [id number]. I have personally reviewed the images and I agree with this report. WSN: [id number] Ordering Physician: Lucie Wright Dictated By: Harjit[Radiology] Owen JOHNSON Dictated Date/Time: 11/02/22 8:18 pm Reviewed By: Phi Raya MD Signed By: Phi Raya MD Signed Date/Time: 11/02/22 8:23 pm Transcribed By: ERIC Transcribed Date/Time: 11/02/22 8:15 pm Vital Signs Most recent to oldest [Reference Range]: 1 2 3 Height 155 cm (11/03/22 11:55 AM) 155 cm (11/03/22 11:31 AM) 155 cm (11/03/22 2:57 AM) Weight 72.5 kg (11/03/22 2:57 AM) Oxygen Saturation [94-100 %] 100 % (11/08/22 12:00 PM) 96 % (11/08/22 10:00 AM) 98 % (11/08/22 9:00 AM) Pulse Rate [55-90 bpm] 94 bpm *H* (11/08/22 12:00 PM) 124 bpm *H* (11/08/22 8:38 AM) 113 bpm *H* (11/08/22 8:00 AM) Body Mass Index [18.5-24.99 kg/m2] 30.18 kg/m2 *>HHI* (11/03/22 2:57 AM) Blood Pressure [90-138/55-84 mm Hg] 131/76mm Hg (11/08/22 3:00 PM) 119/63mm Hg (11/08/22 12:00 PM) 106/67mm Hg (11/08/22 10:00 AM) Respiratory Rate [16-30 br/min] 18 br/min (11/08/22 3:28 PM) 18 br/min (11/08/22 12:00 PM) 14 br/min *L* (11/08/22 10:00 AM) Temperature [96.8-100.4 DegF] 98.1 DegF (11/08/22 3:00 PM) 97.5 DegF (11/08/22 12:00 PM) 97.4 DegF (11/08/22 8:00 AM) Mode of Delivery (Oxygen) Room air (11/08/22 3:00 PM) Room air (11/08/22 12:00 PM) Room air (11/08/22 10:00 AM) Blood pressure sites Arm, left (11/08/22 10:00 AM) Arm, left (11/08/22 8:00 AM) Arm, left (11/08/22 4:00 AM) Temperature Route Oral (11/08/22 3:00 PM) Axillary (11/08/22 12:00 PM) Oral (11/08/22 8:00 AM) Dry Weight 72.5 kg (11/03/22 2:57 AM) Weight Obtained Via Bed scale (11/03/22 2:57 AM) Dry Weight Obtained Via Bed scale (11/03/22 2:57 AM) History and physical note * Event Display: History and Physical Hospital Authored Date: [id number] Admission evaluation note * Vincent JOHNSON, Noor: PERFORM, MODIFY Event Display: Admission Note Authored Date: [id number] Patient: ??TERESA POWELL ? Age:??77 Years?Sex:??Female?:??1945?? Chief Complaint/Reason for Consultation Pt from home with AMS, multiple fallls over the three weeks. + blood thinners. History of Present Illness Patient is 77 year??old woman with PMH notable for afib on Xarelto, DM, HTN, hypercholesteremia, hypothyroidism,?? ch. 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 Cleveland-Neuro), bilateral L5-S1 EMG confirmed radiculopathies, apparent recent inpatient stay at [facility] 10/04/22 for metabolic encephalopathy and right patellar fracture,??who presented to [facility] ED with concern for??recurrent falls. ? I was called in to take charge of patient care at the time of [employer] when patient noted to be in afib with??RVR. At the time of my evaluation - patient has been encephalopathic, restless, moving all extremities, eyes closed, withdraws to pain, protecting her airway but not engaging in conversation. replies in yes/no, unable to take anything PO/ open mouth. ?? HPI was collected per EMR/ ED??note and consultations. Patient's mental status??note dto be wax andwane - similar picture as previous hospitalizations but currently acute encephalopathic. ?? I spoke with His sister over phone??:?? patient lives at home alone. her sister is from [facility] just saw patient 2 days back on weekend. per sister- patient has been struggling with??pain/ severe restless leg syndrome and has been ch on clonazepam/ tramadol which she feels has made her dependent on it. she mentioned that patient has not had??started taking Sinemet yet since it was prescribed last week. but she endorsed patient gets into panic attacks when restlessness in legs worsens and does not sleep at night.?In the ED - it seems that she had 3 falls in a short period of time??possibly related to her RLS??and new bruise on her right upper arm and new low back pain since falling.?? She was noted to bevery anxious in the ED with elevated BP and tachycardia.?? She was sent for imaging studies and received a total of 1.5 mg ??lorazepam IV due to her escalating anxiety.?Apparently this??did not help and she progressed to becoming difficult to redirect and required harlan vest restraint and received haldol 2.5 mg IV x3.?? after that- CT L-spine significant for a L2 transverse process fracture that appears acute. ??Consulted neurosurgery who reports that there is nothing to do for transverse process fractures.?? 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 HR 120-140.? per MASS PAT ( per cynthia note) : She receives monthly supplies of Klonopin??0.[address] Cleveland, tramadol 50 mg from PCP. She was prescribed a course of Molnupiravir and oseltamivir from PCP on 10/21/22 and had a PCP appt on 10/21/22 according to [facility]. ?? Review of Systems unable to get at the time of my eval. Objective Vital Signs?? Temperature: 99.2 DegF (11/03/22 14:00:00) Temperature Route: Axillary (11/03/22 14:00:00) Pulse Rate:??119 bpm??High (11/03/22 17:10:00) Heart Rate Monitored:??103 bpm??High (11/03/22 20:00:00) Respiratory Rate: 18 br/min (11/03/22 20:00:00) Systolic Blood Pressure: 130 mm Hg (11/03/22 20:00:00) Diastolic Blood Pressure: 58 mm Hg (11/03/22 20:00:00) Blood pressure sites: Leg, left (11/03/22 14:35:00) Mean Arterial Pressure: 93 mm Hg (11/03/22 11:55:00) Pulse Pressure: 72 mm Hg (11/03/22 20:00:00) Oxygen Saturation: 98 % (11/03/22 16:00:00) Mode of Delivery (Oxygen): Room air (11/03/22 14:35:00) FiO2: 21 % (11/03/22 13:22:00) End Tidal CO2: 35 mm Hg (11/03/22 01:59:00) Early Warning Score: 2 (11/03/22 20:46:48) ? Physical Exam limited - due to encephalopathy / restlessness. -?? no nuchal rigidity noted. - moving all extremities.. Assessment/Plan Assessment:??Patient is 77 year old woman with PMH notable for afib on Xarelto, DM, HTN, hypercholesteremia, hypothyroidism, ch. severe Restless Leg Syndrome, Periodic Limb Movements of Sleep, Leg cramps (followed by Dr. Cleveland-Neuro), bilateral L5-S1 EMG confirmed radiculopathies, [facility] for metabolic encephalopathy and right patellar fracture, who presented to [facility] ED with concern for recurrent falls. ?? HPI was collected per EMR/ ED note and consultations. Patient's mental status note dto be wax and wane - similar picture as previous hospitalizations but currently acute encephalopathic. I spoke with His sister over phone :??she mentioned that patient has not had started taking Sinemetyet since it was prescribed last week. ?? In the ED - She was noted to be very anxious in the ED with elevated BP and tachycardia. received atotal of 1.5 mg lorazepam -this did not help and she progressed to becoming difficult to redirect and required harlan vest restraint and received haldol 2.5 mg IV x3.? -CT L-spine significant for a L2 transverse process fracture that appears acute. ??Consulted neurosurgery who reports that there is nothing to do for transverse process fractures. -??She was noted to be COVID positive and was placed on Isolation precautions. ?? per MASS PAT ( per cynthia note) : She receives monthly supplies of Klonopin 0.[address] Cleveland, tramadol 50 mg from PCP. She was prescribed a course of Molnupiravir and oseltamivir from PCP on 10/21/22 and had a PCP appt on 10/21/22 according to [facility]. ?? # DDx: acute??on chronic encephalopathy - likely toxic/ metabolic/ less likely infectious vs medication withdrawal/ ? non-compliance to medications vs polypharmacy. ?? Plan: - holding off on clonazepam/ Toradol/ gabepentine/ pre-gabaline: will need to judiciously re-introduced these medications if needed to avoiud withdrawal since patient been chronically using them. - will need to aggressively taper them . looks like she has been taken off gabapentine/pregabaline recently. - Sinemet recently started : will continue. - due to encephalopathy: NG tube placed ( pulled out first one) oral meds and tube feeds. - once mentation improve: will take out NG tube. ?? # Afib with RVR: noted to be in RVR - HR in 160s . - in ED received Cardizem IVP x 5 : 20 mh each. - starting patient on Cardizem gtt for rate control and starting on Lopressor 25 mg BID . - at home looks like on bisoprolol : but unclear if she been taking. can??discharge??on metoprolol instead of bisoprolol. - seems to be on Xarelto : will need to reassess the need in the setting of multiple FALLS. ?? #psychtropic/chronic benzo use: interestingly utox is negative for benzo : unclear when was her last dose. - holding off for now diue to encephalopathy. - will need to re-initiate to avoid withdrawal once more clear mentation. ?? # cynthia team on board. might need GOC discussion at some point. ?? # hypothyroidism: at home on levo 137 mcg. TSH note dto be elevated with Normal free T4: does not looks like myxedema coma sibce TSH is borderlone elevated. ?? # DM2: at home on jardiance. - holding. insulin SSI. ? # communited R patellar fx: - was seen at [facility] last week. - immobilizer suggested. - f/u their recs, f/u out patient. ?? quality: DVT : Xarelto diet: NPO - NGT with tube feeds code: full ( discussed with sister) will need to rediscuss with patient once better ?? Discharge Planning:? Histories Allergies Allergies ?(Active and Proposed Allergies Only) aspirin? (Severity: Unknown severity, Onset: Unknown) ?Reactions: throat gets tight ? Past Medical History/Problem List Active Problems??(1) Obese class I ? Past Surgical History Arthrodesis, posterior or posterolateral technique, single level; lumbar (with lateral transverse technique, when performed) ? Social History No social history documented. ? Family History No family history recorded. ? Medications Home Medications Atorvastatin (Lipitor 10 mg oral tablet)?4?tab(s)?40?Milligram?By Mouth?Daily Bisoprolol?25?Milligram?By Mouth?Daily Calcium And Vitamin D Combination (calcium (as citrate)-vitamin D 315 mg-250 intl units oral tablet)?1?tab(s)?By Mouth?2 times a day Carbidopa-Levodopa (Sinemet 25 mg-100 mg oral tablet)?1?tab(s)?By Mouth?3 times a day Cetirizine?10?Milligram?By Mouth?Daily Cholecalciferol (Vitamin D3 5000 intl units oral capsule)?1?capsule?125?Microgram?ByMouth?Daily?with food Clonazepam (clonazePAM 0.125 mg oral tablet, disintegrating)?1?tab(s)?0.125?Milligram?By Mouth?Daily?as needed?Agitation empagliflozin (Jardiance 25 mg oral tablet)?1?tab(s)?25?Milligram?By Mouth?Daily in AM Gabapentin (gabapentin enacarbil 300 mg oral tablet, extended release)?1?tab(s)?300?Milligram?By Mouth?2 times a day?as needed?Agitation Levothyroxine (Synthroid)?137?Microgram?By Mouth?Daily Losartan (losartan 25 mg oral tablet)?25?Milligram?1?tablet?By Mouth?Daily Losartan (losartan 50 mg oral tablet)?50?Milligram?1?tablet?By Mouth?Daily Montelukast?10?Milligram?By Mouth?Daily Omeprazole?20?Milligram?By Mouth?Daily rivaroxaban (Xarelto 20 mg oral tablet)?1?tab(s)?20?Milligram?By Mouth?Daily in PM Tramadol?50?Milligram?By Mouth?Every 4 hours?as needed?Pain , Moderate ? EKG study * Event Display: ECG 12-Lead Authored Date: Please click on pdf link to open report * Event Display: ECG 12-Lead Authored Date: Ventricular Rate: 143 BPM Atrial Rate: 136 BPM QRS Duration: 66 ms Q-T Interval: 300 ms QTC Calculation(Bazett): 463 ms R [place]: 44 degrees T [place]: 48 degrees Atrial fibrillation with rapid ventricular response Abnormal ECG When compared with ECG of 02-NOV-2022 17:19, Nonspecific T wave abnormality no longer evident in Anterior leads Confirmed by ANDERSON NAYAK MD ([id number]) on 11/03/2022 9:51:17 AM [place]: ANDERSON NAYAK MD * Event Display: ECG 12-Lead Authored Date: Please click on pdf link to open report * Event Display: ECG 12-Lead Authored Date: [id number] Ventricular Rate: 103 BPM QRS Duration: 66 ms Q-T Interval: 330 ms QTC Calculation(Bazett): 432 ms R [place]: 48 degrees T [place]: 57 degrees Atrial fibrillation with rapid ventricular response Cannot rule out Anterior infarct , age undetermined Abnormal ECG No previous ECGs available Confirmed by ANDERSON NAYAK MD ([id number]) on 11/03/2022 8:03:43 AM [place]: ANDERSON NAYAK MD Cardiology * Event Display: Cardiac Rhythm Strips Authored Date: * Event Display: Cardiac Rhythm Strips Authored Date: Hospital Progress note * Taz Figueroa RN: PERFORM, SIGN, VERIFY Event Display: Progress Note Hospital Authored Date: Patient: TERESA POWELL Age: 77 years Sex: Female : 1945 Associated Diagnoses: None Author: Taz Figueroa RN Findings Problem Related to Alteration in Neurological : Alteration in Neurological Function/new 11/08/2022 18:00 EDT Alteration in Neuro status Related to Other: AMS / lethargy/agitation Goals & Outcomes, Neurological Lab studies/diagnostic tests within pt specific limits, Pt is safe with transfers & activities, Pt will be hemodynamically stable, Pt will be Neurologically stable, Pt will maintain intact skin integrity, Pt will remain free from injury, Pt will resume/maintain adequate cardiac output, Pt/caregiver will receive psychosocial support as needed, Pt/caregiver will state understanding of disease process, Pt/caregiver will state understanding of plan/goals of care Interventions, Neurological Assess/monitor for abnormal posturing BH Goals/Interventions, Neurological Yes Neurological, Problem Start 11/03/2022 4:28 Reviewed plan with, Neurological Patient Patient Progression, Neurological Resolved problem (Modified) Neurological, Problem Resolved 11/08/2022 18:00 . Evaluation P: patient to bediscahrged to rehab facility. I: iv removed, patient dressed. E: belongings taken with patient, paperwork given to amr. Discharge Information Case Management Discharge Plan : Case Management Discharge Plan Data 11/08/2022 13:16 EDT Discharge Level of Care at Discharge long-term facility Discharge [facility] Discharge Transportation Arranged [facility] [address] [facility] [id number] [phone] Discharge Arranged Transport Date/Time 11/08/2022 16:00 Mode of Transportation Arranged Ambulance Rehabilitation Discharge : Rehab Discharge Index 11/05/2022 9:52 EDT Comments on treatment indicated 77 y/o female presents to [facility] ED with concern for recurrent falls. PT for balance, strengthening, bed mobility, transfers c RW, amb c RW. Rec rehab. Walker: distance < 10 Distance pt will ambulate 30' c RW Full chart review completed Yes Hospital course Hospital course Other findings Barriers to safe d/c home: impaired balance, fall risk, A for mobility, impaired strength, impaired activity luis / endurance, impaired transfers, impaired gait. Plan of care PT Gait training, Transfer training, Therapeutic exercise, Functional Activities, Balance training, Neuromuscular education 11/04/2022 10:48 EDT Comments on treatment indicated Comments on treatment indicated Full chart review completed Yes Hospital course Hospital course * Perlita Garcia RN: VERIFY, PERFORM, SIGN Event Display: Progress Note Hospital Authored Date: [id number] Patient: TERESA POWELL Age: 77 years Sex: Female : 1945 Associated Diagnoses: None Author: Perlita Garcia RN Findings Problem Related to Alteration in Neurological : Alteration in Neurological Function/new 11/08/2022 4:00 EDT Alteration in Neuro status Related to Other: AMS / lethargy/agitation Goals & Outcomes, Neurological Lab studies/diagnostic tests within pt specific limits, Pt is safe with transfers & activities, Pt will be hemodynamically stable, Pt will be Neurologically stable, Pt will maintain intact skin integrity, Pt will remain free from injury, Pt will resume/maintain adequate cardiac output, Pt/caregiver will receive psychosocial support as needed, Pt/caregiver will state understanding of disease process, Pt/caregiver will state understanding of plan/goals of care Interventions, Neurological Elevate HOB & keep head midline in sniffing position BH Goals/Interventions, Neurological Yes Neurological, Problem Start 11/03/2022 4:28 Reviewed plan with, Neurological Patient Patient Progression, Neurological Pt progressing according to plan . Evaluation Patient AxO^2. Patient able to remain free from restraints. patient is no longer pulling at wharton or NG tube. Patient did not sleep overnight. Patient did complain of anxiety and pain so PRN medications were given with little affect. see biophysical for further assessments. Discharge Information Rehabilitation Discharge : Rehab Discharge Index 11/04/2022 10:48 EDT Comments on treatment indicated Comments on treatment indicated Full chart review completed Yes Hospital course Hospital course * Perlita Garcia RN: PERFORM, SIGN, VERIFY Event Display: Progress Note Hospital Authored Date: [id number] Patient: TERESA POWELL Age: 77 years Sex: Female : 1945 Associated Diagnoses: None Author: Perlita Garcia RN Discharge Information Rehabilitation Discharge : Rehab Discharge Index 11/04/2022 10:48 EDT Comments on treatment indicated Comments on treatment indicated Full chart review completed Yes Hospital course Hospital course Consult note * Zahraa Davis: PERFORM Event Display: Consultation Note Authored Date: [id number] Patient: ??TERESA POWELL ? Age:??77 Years?Sex:??Female?:??1945?? Chief Complaint Pt from home with AMS, multiple fallls over the three weeks. + blood thinners. History of Present Illness Reason for consult:?? PD, agitation, restless but not delirious ?? Referring physician: ??Dr. Barron ?? Source of Information/reliability:?? Chart, old records ?? History of Present Illness:?? This is a 77 year??old woman with PMH notable for afib on Xarelto, DM, HTN, hypercholesteremia, Thyroid disorder, Vit D deficiency, Restless Leg Syndrome, Periodic Limb??Movements of Sleep, Leg cramps (followed by Dr. Cleveland-Neuro), bilateral L5-S1 EMG confirmed radiculopathies, apparent recent inpatient stay at [facility] 10/04/22 for metabolic encephalopathy and right patellar fracture,??who presented to [facility] ED with concern for??recurrent falls. In the ED she had reported 3 falls in a short period of time??possibly related to her RLS??and new bruise on her right upper arm and new low back pain since falling.?? She was noted to be very anxious in the ED with elevated BP and tachycardia.?? She was sent for imaging studies and received a total of 1.5 mg ??lorazepam IV due to her escalating anxiety.?Apparently this??did not help and she progressed tobecoming difficult to redirect and required harlan vest restraint and received haldol 2.5 mg IV x3.?? CT L-spine significant for a L2 transverse process fracture that appears acute. ??Consulted neurosurgery who reports that there is nothing to do for transverse process fractures.?? She was noted to have??afib with RVR and received IV diltiazem.?She was noted to be COVID positive and was placed on Isolation precautions.?? She was transferred to [facility] at 0248. 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 HR 120-140.? We are asked to evaluate for the above. I was unable to obtain any history from the patient.?? I attempted to contact her HCP but the phone went directly to voice mail. I called her PCP office [facility] Dr. Jo Martin??Rishi and was on hold for 43 minutes after which??I was transferred to medical??records and I requested a copy of??all her recent office information including HCP/recent office notes and HCP forms to be faxed to [facility]. Office notes from??Neurology Dr. Cleveland were obtained and reviewed. ? MASS PAT reviewed. She receives monthly supplies of Klonopin??0.[address] Cleveland, tramadol 50 mg from PCP. She was prescribed a course of Molnupiravir and oseltamivir from PCP on 10/21/22 and had a PCP appt on 10/21/22 according to [facility]. ? Encounter with patient at bedside:?? Patient lethargic, keeping eyes closed, nonverbal.?Occasionally moving about in the bed.?? Poor command following.? SH unknown.?? 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 Review of Systems Unable to obtain . Has had urinary retention requiring SC (volumes in the 400's). ?? Physical Exam Vitals & Measurements T:??99.2?F?? TMIN:??97.5?F?? TMAX:??99.2?F?? HR:??83??(Peripheral)?? RR:??17?? BP:??138/59?? SpO2:??97%?? WT:??72.5??kg?? Lethargic, Keeping eyes closed. Pupils pinpoint and nonreactive Oral mucosa dry, nonverbal Tachy/irreg/irreg Occasional pauses in respiration Abdomen soft/NT/+ BS Moving around in the bed Toes downgoing, no clonus Squeezed both hands to command with repeated verbal cues Assessment/Plan This is a 77 year old woman with the above noted PMH including afib on Xarelto, DM, HTN, hypercholesteremia, Thyroid disorder, Vit D deficiency, Restless Leg Syndrome, Periodic Limb??Movements of Sleep, Leg cramps (followed by Dr. Cleveland-Neuro), bilateral L5-S1 EMG confirmed radiculopathies who presented to the ED with apparent concern for multiple falls.?? In the ED work up revealed Right L2 transverse process fracture may be acute, and she was noted to have afib with RVR.?? She received multiple sedating medications due to escalating anxiety and was quite somnolent during my evaluation with pin-point pupils and limited responsiveness.?? I was not able to obtain a detailed or accurate hist ory. ?? In addition she was found to be COVID positive.? Impression: Hypoactive Delirium-Possible medication effect ?? Recommendations: ?? D/w Dr. Barron, additional work-up pending. Neurology Consult pending. NPO. May need repeat Head CT, toxicology screen. Records from PCP are pending. It does appear she was seen by PCP on 10/21/22 and prescribed medication for both flu and possible COVID. Please clarify if she still requires isolation. Bladder scans q shift Bowel regimen ?? Delirium Precautions - Delirium precautions: ?? - Avoid anticholinergics, benzodiazepines, and opiates ?? - Avoid restraints where possible ?? - Family at bedside as much as possible ?? - Frequent reorientation ?? - Constant land planner as needed ?? - OOB to chair for meals, cueing to maintain hydration ?? - Close monitoring for constipation and urinary retention ?? - Room bright during day, and dim at night ?? - Uninterrupted sleep at night ?? Will follow and give additional recommendations on 11/04/22. ? Total Time Spent I personally spent a total of _95 minutes, including both [id number] and vsb-psch-sp-face time onthe date of the encounter, addressing the above diagnoses. ?? Review of tests performed by other providers?? D/w RN. ? Problem List/Past Medical History Ongoing Obese class I Procedure/Surgical History ???Arthrodesis, posterior or posterolateral technique, single level; lumbar (with lateral transverse technique, when performed) Medications Inpatient Acetaminophen Tablet, 650 mg, By Mouth, Every 4 hours, PRN carbidopa-levodopa 25 mg-100 mg oral tablet, 1 tablet, By Mouth, Daily carbidopa-levodopa 25 mg-100 mg oral tablet, 1 tablet, By Mouth, Daily carbidopa-levodopa 25 mg-100 mg oral tablet, 1 tablet, By Mouth, Daily Cardizem 125 mg/125 mL D5W 125 mg, 125 mg= 125 mL, IV Infusion Docusate Sodium Capsule, 100 mg= 1 capsule, By Mouth, 2 times a day, PRN Haldol LACTATE Inj, 2.5 mg= 0.5 mL, IV Push Slowly, Every 8 hours, PRN levothyroxine 0.137 mg oral tablet, 137 mcg, By Mouth, Daily Lipitor 10 mg oral tablet, 10 mg, By Mouth, Daily Melatonin Tablet, 3 mg, By Mouth, Daily at bedtime, PRN metoprolol 25 mg oral tablet, 25 mg, By Mouth, 2 times a day MiraLax Powder, 17 Gm= 1 pack/packet, By Mouth, Daily, PRN montelukast 10 mg oral tablet, 10 mg, By Mouth, Daily at bedtime Multivit Therapeutic/Minerals Tablet, 1 tablet, Nasogastric Tube, Daily NaCL 0.9% Flush, 3 mL, IV Push, Every 8 hours NaCL 0.9% Flush, 3 mL, IV Push, Every 8 hours, PRN Robitussin DM Liquid, 10 mL, By Mouth, Every 4 hours, PRN Senna Tablet, 8.6 mg= 1 tablet, By Mouth, 2 times a day, PRN Simethicone Tablet, 80 mg, Chew, 3 times a day, PRN Home Bisoprolol, 25 mg, By Mouth, Daily calcium (as citrate)-vitamin D 315 mg-250 intl units oral tablet, 1 tablet, By Mouth, 2 times a day Lipitor 10 mg oral tablet, 10 mg= 1 tablet, By Mouth, Daily losartan 25 mg oral tablet, 25 mg= 1 tablet, By Mouth, Daily metFORMIN 500 mg oral tablet, 500 mg= 1 tablet, By Mouth, Daily Montelukast, 10 mg, By Mouth, Daily Omeprazole, 20 mg, By Mouth, Daily Synthroid, 137 mcg, By Mouth, Daily Tramadol, 50 mg, By Mouth, Every 4 hours, PRN Vitamin D3 5000 intl units oral capsule, 125 mcg= 1 capsule, By Mouth, Daily Allergies aspirin??(throat gets tight) Immunizations Vaccine Date Status pneumococcal 20-valent conjugate vaccine 09/08/2022 Recorded tetanus/diphtheria/pertussis, acel(Tdap) 09/08/2022 Recorded influenza virus vaccine, inactivated 12/17/2021 Recorded [id number] 12y+ bivalent booster vax 12/17/2021 Recorded influenza virus vaccine, inactivated 12/04/2020 Recorded SARS-CoV-2 (COVID-19) mRNA BNT-162b2 vac 11/06/2020 Recorded SARS-CoV-2 (COVID-19) mRNA BNT-162b2 vac 10/16/2020 Recorded SARS-CoV-2 (COVID-19) mRNA BNT-162b2 vac 09/25/2020 Recorded Lab Results Event Name?? Event Result?? Date/Time?? Abs. Baso 0.1 k/mm3 11/02/22 Abs. Eo 0.1 k/mm3 11/02/22 Abs. Imm Gran 0 k/mm3 11/02/22 Abs. Lymph 2.5 k/mm3 11/02/22 Abs. Dunn 1 k/mm3??High 11/02/22 Abs. Neut 7.2 k/mm3??High 11/02/22 Abs. NRBC 0 k/mm3 11/02/22 Albumin 3.6 Gm/dL 11/03/22 Albumin, Urine TRACE Abnormal 11/03/22 Alkaline Phosphatase 68 units/L 11/03/22 ALT (SGPT) 16 units/L 11/03/22 Ammonia, Venous 35 ??mole/L 11/03/22 Amphetamine Screen, Urine NONE DETECTED 11/03/22 Anion Gap 10 11/03/22 Appear/Color, Urine LIGHT YELLOW 11/03/22 AST (SGOT) 27 units/L 11/03/22 Bacteria SLIGHT Abnormal 11/03/22 Barbiturate Screen, Urine NONE DETECTED 11/03/22 Baso % 0.7 % 11/02/22 Benzodiazepine Screen, Urine NONE DETECTED 11/03/22 Bicarbonate Level 24 mmol/L 11/03/22 Bicarbonate, Estimated 25 mmol/L 11/03/22 Bilirubin, Direct <0.2 11/03/22 Bilirubin, Indirect Direct bilirubin is less than the measureable limit. Therefore, indirect 11/03/22 Bilirubin, Total 0.8 mg/dL 11/03/22 Bilirubin, Urine NEGATIVE 11/03/22 BUN 11 mg/dL 11/03/22 Calcium 9.1 mg/dL 11/03/22 Cannabinoid Screen, Urine NONE DETECTED 11/03/22 Chloride 105 mmol/L 11/03/22 Cocaine Metabolite Screen, Urine NONE DETECTED 11/03/22 COVID-19 by RT-PCR POSITIVE Abnormal 11/03/22 Creatinine-Blood 0.6 mg/dL 11/03/22 Eos % 0.9 % 11/02/22 Est Creatinine Clearance 61.2 mL/min 11/03/22 Estimated GFR Creatinine 93 ML/MIN/1.73 M2 11/03/22 Free T4 1.23 ng/dL 11/02/22 Glucose Level 107 mg/dL??High 11/03/22 Glucose, POC 96 mg/dL 11/03/22 Glucose, Urine NEGATIVE 11/03/22 Hct 40.5 % 11/02/22 Hemoglobin, Urine NEGATIVE 11/03/22 Hgb 13.1 Gm/dL 11/02/22 High Sensitivity Troponin (HSTnT) 14 ng/L??High 11/03/22 Hold Gel Top SPECIMEN DISCARDED AFTER 1 WEEK 11/02/22 Hold Lavender Top SPECIMEN DISCARDED AFTER 24 HOURS. 11/03/22 Hold Urine Culture Testing available 48 hours from time of collection. 11/03/22 Imm Gran 0.4 % 11/02/22 INR 1 11/02/22 Ketones, Urine NEGATIVE 11/03/22 Lactate 1.3 mmol/L 11/03/22 Leukocyte, Urine NEGATIVE 11/03/22 Lymph % 23.2 % 11/02/22 MCH 27.7 pg 11/02/22 MCHC 32.3 g/dL??Low 11/02/22 MCV 85.6 femtoliters 11/02/22 Dunn % 9.3 % 11/02/22 MPV 10.5 femtoliters 11/02/22 Mucus SLIGHT 11/03/22 Neut % 65.5 % 11/02/22 Nitrite, Urine NEGATIVE 11/03/22 Nucleated RBC (Automated) 0 #/100 WBC'S 11/02/22 Opiate Screen, Urine NONE DETECTED 11/03/22 pCO2 40 mm Hg 11/03/22 Percent O2 (FIO2) 21 11/03/22 pH 7.42 11/03/22 pH, Urine 7 11/03/22 Platelet Count 319 k/mm3 11/02/22 pO2 71 mm Hg 11/03/22 Potassium 3.9 mmol/L 11/03/22 Protein, Total 6.5 Gm/dL 11/03/22 Protime (PT) 11 seconds 11/02/22 RBC 4.73 m/mm3 11/02/22 RBC's, Urine 2 /HPF 11/03/22 RDW-SD 42.1 femtoliters 11/02/22 Sodium 139 mmol/L 11/03/22 Specific Rowe, Urine 1.017 11/03/22 Specimen Type - Blood Gas ARTERIAL 11/03/22 Squamous Epith 1 /HPF 11/03/22 TSH 6.58 uIU/mL??High 11/02/22 Urobilinogen NORMAL 11/03/22 WBC 11 k/mm3 11/02/22 WBC's, Urine 2 /HPF 11/03/22 ? Diagnostic Results (11/02/2022 20:[address] Head/Brain W/O Contrast) BRAIN AND EXTRA-AXIAL SPACES: No parenchymal hemorrhage, midline shift, or mass effect. Douglas-white matter differentiation is wellpreserved. No acute infarct. ?? Ventricles, sulci, and basilar cisterns are normal.? Mild low-density white matter changes. ?? No subarachnoid hemorrhage. No subdural or epidural collection. ?? CALVARIUM, SKULL BASE, AND SOFT TISSUES: No fractures or suspicious bony lesions.? The paranasal sinuses and mastoid air cells are clear. ?? Visualized orbits and globes are intact.? The extracranial soft tissues are unremarkable. ?? CERVICAL SPINE:?? No fracture. No acute osseous abnormalities. ?? Normal alignment. No locked or perched facet. Moderate multilevel degenerative disc space narrowingand end plate irregularity. Narrowing of the atlantodens interval with osteophyte formation. ?? OTHER BONES:?? No acute abnormality. ?? CERVICAL SOFT TISSUES AND LUNG APICES:?? Normal soft tissues. Visualized lung apices are clear. ?? IMPRESSION: ?? No acute intracranial abnormality. Mild chronic small vessel ischemic changes. ?? [1] ?? (11/02/2022 20:[address] Lumbar Spine W/O Contrast) IMPRESSION:? 1. Right L2 transverse process fracture may be acute. No other fracture identified. 2. Mild L3 superior endplate compression appears chronic. ?? [2] ?? (11/02/2022 20:[address] Cervical Spine W/O Contrast) CERVICAL SPINE:?? No fracture. No acute osseous abnormalities. ?? Normal alignment. No locked or perched facet. Moderate multilevel degenerative disc space narrowingand end plate irregularity. Narrowing of the atlantodens interval with osteophyte formation. ?? OTHER BONES:?? No acute abnormality. ?? CERVICAL SOFT TISSUES AND LUNG APICES:?? Normal soft tissues. Visualized lung apices are clear. ?? IMPRESSION: ?? No acute intracranial abnormality. Mild chronic small vessel ischemic changes. ?? [3] ? ECG 12-Lead Please click on pdf link to open report ?? [id number] Ventricular Rate: 143 ??BPM Atrial Rate: 136 ??BPM QRS Duration: 66 ??ms Q-T Interval: 300 ??ms QTC Calculation(Bazett): 463 ??ms R [place]: 44 ??degrees T [place]: 48 ??degrees Atrial fibrillation with rapid ventricular response Abnormal ECG When compared with ECG of 02-NOV-2022 17:19, Nonspecific T wave abnormality no longer evident in Anterior leads Confirmed by ANDERSON NAYAK MD ([id number]) on 11/03/2022 9:51:17 AM ?? [4] [1]??CT Head/Brain W/O Contrast; Tobias JOHNSON, Sergio Barger 11/02/2022 20:31 EDT [2]??CT Lumbar Spine W/O Contrast; Phi Raya MD 11/02/2022 20:31 EDT [3]??CT Cervical Spine W/O Contrast; Tobias JOHNSON, Sergio Barger 11/02/2022 20:31 EDT [4]??12 Lead ECG; Jakub PICKETTAnderson 11/03/2022 08:14 EDT * Galen MARTINS, Soumya Womack: PERFORM, MODIFY Event Display: Consultation Note Authored Date: Patient: ??TERESA POWELL ? Age:??77 Years?Sex:??Female?:??1945?? Chief Complaint/Reason for Consultation Pt from home with AMS, multiple fallls over the three weeks. + blood thinners. History of Present Illness Teresa Nino is a 77 year old female brought in by EMS for placement with reported fluctuating confusion and falls thought to be unsafe at home. Past medical history included hypothyroid, DMII, HTN, HLD, afib on Xarelto, restless leg syndrome and Parkinson's (followed by Dr Cleveland). Uponarrival to the ED 11/02 patient was reported to be anxious, patient required Ativan around 1800 on the , with increasing restlessness and anxiety requiring additional medication including Haldol and Ativan prior to head CT. Head ct with out acute intracranial finding. found to be in afib with RVR and COVID positive. ?? On exam patient is on COVID precautions, restrained with bilateral soft wrist restraints, NGT, patient restless -kicking legs side to side in bed and over the side rail, patient sitting upright from laying position and attempting to pull NGT. Patient attentive to examiner when her name was called -she was alert to self and states hospital when asked location, follows simple commands with frequent redirection.??pupils 2mm equal and reactive with??EMOI.??she is moving all extremities spontaneously and withdrawals to touch in all extremities. ?? Patient reported to have admissions to [facility] - recent Right patella fracture. on chart review patient rx for Oseltamivir and Lagevrio on 10/21 recent fx of right fibula with admission to??[place] on 10/04 with metabolic encephalopathy - reported to clear with cessation of pregabalin and gabapentin. recent PNA with AMS. LP reported during that time to be unremarkable - records of LP not present for current review?? reported increased change in cognition with forgetfulness and agitation Review of Systems ?did not review due to patient cognition and participation Objective Vital Signs?? Temperature: 97.5 DegF (11/03/22 08:00:00) Temperature Route: Axillary (11/03/22 08:00:00) Pulse Rate:??117 bpm??High (11/03/22 11:31:00) Respiratory Rate: 17 br/min (11/03/22 11:31:00) Systolic Blood Pressure:??139 mm Hg??High (11/03/22 11:55:00) Diastolic Blood Pressure: 70 mm Hg (11/03/22 11:55:00) Blood pressure sites: Arm, right (11/03/22 11:55:00) Mean Arterial Pressure: 93 mm Hg (11/03/22 11:55:00) Pulse Pressure: 69 mm Hg (11/03/22 11:55:00) Oxygen Saturation: 100 % (11/03/22 11:31:00) Mode of Delivery (Oxygen): Room air (11/03/22 11:31:00) End Tidal CO2: 35 mm Hg (11/03/22 01:59:00) Early Warning Score: 4 (11/03/22 11:55:52) ? Pain Scores?? No qualifying data available. ?? Precautions Seizure Precautions ? [place] Coma Scale [place] Coma Score: 14 (11/02/22 17:06:00) Motor Response-Adult: Obeys commands (11/02/22 17:06:00) Response Eye Opening: Spontaneously (11/02/22 17:06:00) Verbal Response-Adult: Disoriented and converses (11/02/22 17:06:00) ? Basic ADLs Ambulatory devices needed: Walker, Other: Knee Immobilizer (11/03/22) Ambulatory devices needed: Walker, Other: Knee Immobilizer (11/03/22) ? Mobility & Ambulation Level Mobility & Ambulation Level Ambulatory devices needed: Walker, Other: Knee Immobilizer (11/03/22) Ambulatory devices needed: Walker, Other: Knee Immobilizer (11/03/22) ?? Therapeutic Activity Therapeutic Activities/Mobility/Balance?? No qualifying data available. ? Physical Exam General: Laying in bed with soft wrist restraints, NGT, restless, attempting to get oob and pullingat NGT ?? NEURO:? MENTAL STATUS: Gen:? Alert, restless, intermittently following simple commands with redirection Orientation:?alert and oriented to person, place (hospital) Speech/Lang:?? Fluent, without dysarthria - did not repeat or name objects - requesting water ?? CN II-XII:?? blinks to threat bilaterally. PERRL (3mm -> 2mm).?? No ptosis.?? EOM were intact w/o nystagmus. Light-touch normal on face bilaterally. Face symmetric with normal forehead wrinkle, grimace. Tongue midline with protrusion. No dysarthria. Hearing grossly normal to voice. MOTOR: Normal bulk and tone, formal strength testing not completed as patient is not following all commands - all extremities witnessed antigravity SENSATION: Diffusely intact to light touch - withdrawals in all extremities REFLEXES: Deep tendon reflexes were normal and symmetric bilaterally at the biceps, brachioradialis, patellar. toes are flexor CEREBELLAR: did not perform finger to nose however smooth pursuit observed when attempting to grab NGT GAIT/STANCE: deferred Assessment/Plan Teresa Nino is a 77 year old female brought in by EMS for placement with reported fluctuating confusion and falls thought to be unsafe at home. recent admission and encephalopathy and worsening cognition at another facility, Neurology being consulted for AMS. Patient is COVID positive with recent/acute fractures from fall and now afib with RVR ?? On exam patient is restrained with bilateral soft wrist restraints, NGT, patient restless - Patient attentive to examiner when her name was called - alert to self and hospital, follows simple commands with frequent redirection.??pupils 2mm equal and reactive with??EMOI.??she is moving all extremities spontaneously and withdrawals to touch in all extremities. non con head CT with No acute intracranial abnormality. ?? of note patients recent recommendation from outside facility stated: experiment with the dose of gabapentin and clonazepam - however previous admission noted encephalopathy cleared with cessation of pregabalin and gabapentin. patient unable to provide history in regards to medication intake - unfortunately we are not able to obtain a level ?? impression: Toxic metabolic (COVID) ??encephalopathy exacerbated by afib with RVR, HTN with a history of encephalopathy if encephalopathy persists after control of heart rate, and acute pain/fractures have been controlled/treated, and covid has cleared - may then consider MRI brain, but at this time with history of encephalopathy with previous LP with out finding and acute events would defer until other insults/injuries have resolved ?? Recommending: -??supportive care per primary team -??HR control per primary team - pain control per primary team - delirium precautions - fall precautions - neurology will sign off ?? Discussed with Dr. Rod messaged primary team via ISpeak recommendations. ? Histories Allergies Allergies ?(Active and Proposed Allergies Only) aspirin? (Severity: Unknown severity, Onset: Unknown) ?Reactions: throat gets tight ? Past Medical History/Problem List Active Problems??(1) Obese class I ? Past Surgical History Arthrodesis, posterior or posterolateral technique, single level; lumbar (with lateral transverse technique, when performed) ? Social History No social history documented. ? Family History No family history recorded. ? Functional Assessments Ambulatory devices needed: Walker, Other: Knee Immobilizer Ambulatory devices needed: Walker, Other: Knee Immobilizer ?? Medications Home Medications Atorvastatin (Lipitor 10 mg oral tablet)?1?tab(s)?10?Milligram?By Mouth?Daily Bisoprolol?25?Milligram?By Mouth?Daily Calcium And Vitamin D Combination (calcium (as citrate)-vitamin D 315 mg-250 intl units oral tablet)?1?tab(s)?By Mouth?2 times a day Cholecalciferol (Vitamin D3 5000 intl units oral capsule)?1?capsule?125?Microgram?ByMouth?Daily?with food Levothyroxine (Synthroid)?137?Microgram?By Mouth?Daily Losartan (losartan 25 mg oral tablet)?25?Milligram?1?tablet?By Mouth?Daily Metformin (metFORMIN 500 mg oral tablet)?1?tab(s)?500?Milligram?By Mouth?Daily Montelukast?10?Milligram?By Mouth?Daily Omeprazole?20?Milligram?By Mouth?Daily Tramadol?50?Milligram?By Mouth?Every 4 hours?as needed?Pain , Moderate ? Inpatient Medications Medications (14) Active SCHEDULED: (4) Levothyroxine 137 mcg Tablet (levothyroxine 0.137 mg oral tablet) ??137 mcg, By Mouth, Daily Metoprolol 25mg Tablet (Metoprolol IR Tablet) ??12.5 mg, By Mouth, 2 times a day Montelukast 10 mg Tablet (montelukast 10 mg oral tablet) ??10 mg, By Mouth, Daily at bedtime NaCl 0.9% Flush 3ml (NaCL 0.9% Flush) ??3 mL, IV Push, Every 8 hours CONTINUOUS: (1) Diltiazem 125 mg/D5W (125 mL) 125 mg (Cardizem 125 mg/125 mL D5W 125 mg) ??125 mg 125 mL, IV Infusion PRN: (9) Acetaminophen 325 mg Tablet (Acetaminophen Tablet) ??650 mg, By Mouth, Every 4 hours Dextromethorphan-Guaifenesin 20 mg-200 mg/10 mL Liqu UD (Robitussin DM Liquid) ??10 mL, By Mouth, Every 4 hours Docusate Sodium 100 mg Capsule (Docusate Sodium Capsule) ??100 mg 1 capsule, By Mouth, 2 times a day Haloperidol Lactate 5 mg/mL Inj (1 mL) (Haldol LACTATE Inj) ??2.5 mg 0.5 mL, IV Push Slowly, Every 8 hours Melatonin 3 mg Tablet (Melatonin Tablet) ??3 mg, By Mouth, Daily at bedtime NaCl 0.9% Flush 3ml (NaCL 0.9% Flush) ??3 mL, IV Push, Every 8 hours Polyethylene Glycol 17 Gm Powder (MiraLax Powder) ??17 Gm 1 pack/packet, By Mouth, Daily Senna Tablet ??8.6 mg 1 tablet, By Mouth, 2 times a day Simethicone 80 mg Chewable Tablet (Simethicone Tablet) ??80 mg, Chew, 3 times a day ? Results Recent Labs BLOOD COUNT & DIFF WBC 11.0 k/mm3 ()?? 11/02/2022 18:33 RBC 4.73 m/mm3 ()?? 11/02/2022 18:33 Hgb 13.1 Gm/dL ()?? 11/02/2022 18:33 Hct 40.5 % ()?? 11/02/2022 18:33 MCV 85.6 femtoliters ()?? 11/02/2022 18:33 MCH 27.7 pg ()?? 11/02/2022 18:33 MCHC 32.3 g/dL (Low)?? 11/02/2022 18:33 Platelet Count 319 k/mm3 ()?? 11/02/2022 18:33 RDW-SD 42.1 femtoliters ()?? 11/02/2022 18:33 MPV 10.5 femtoliters ()?? 11/02/2022 18:33 Nucleated RBC (Automated) 0.0 #/100 WBC'S ()?? 11/02/2022 18:33 Abs. NRBC 0.0 k/mm3 ()?? 11/02/2022 18:33 Abs. Neut 7.2 k/mm3 (High)?? 11/02/2022 18:33 Abs. Lymph 2.5 k/mm3 ()?? 11/02/2022 18:33 Abs. Dunn 1.0 k/mm3 (High)?? 11/02/2022 18:33 Abs. Eo 0.1 k/mm3 ()?? 11/02/2022 18:33 Abs. Baso 0.1 k/mm3 ()?? 11/02/2022 18:33 Neut % 65.5 % ()?? 11/02/2022 18:33 Lymph % 23.2 % ()?? 11/02/2022 18:33 Dunn % 9.3 % ()?? 11/02/2022 18:33 Eos % 0.9 % ()?? 11/02/2022 18:33 Baso % 0.7 % ()?? 11/02/2022 18:33 Imm Gran 0.4 % ()?? 11/02/2022 18:33 Abs. Imm Gran 0.0 k/mm3 ()?? 11/02/2022 18:33 ?? CARDIAC High Sensitivity Troponin (HSTnT) 14 ng/L (High)?? 11/03/2022 10:44 ?? CHEM GENERAL Sodium 139 mmol/L ()?? 11/03/2022 10:43 Potassium 3.9 mmol/L ()?? 11/03/2022 10:43 Chloride 105 mmol/L ()?? 11/03/2022 10:43 Bicarbonate Level 24 mmol/L ()?? 11/03/2022 10:43 Anion Gap 10 ()?? 11/03/2022 10:43 Glucose Level 107 mg/dL (High)?? 11/03/2022 10:43 Glucose, POC 113 mg/dL (High)?? 11/03/2022 04:47 BUN 11 mg/dL ()?? 11/03/2022 10:43 Creatinine-Blood 0.6 mg/dL ()?? 11/03/2022 10:43 Estimated GFR Creatinine 93 ML/MIN/1.73 M2 ()?? 11/03/2022 10:43 Calcium 9.1 mg/dL ()?? 11/03/2022 10:43 Lactate 1.3 mmol/L ()?? 11/03/2022 10:44 ?? COAG INR 1.0 ()?? 11/02/2022 18:33 Protime (PT) 11.0 seconds ()?? 11/02/2022 18:33 ?? ENDOCRINE/TUMOR MARKER TSH 6.58 uIU/mL (High)?? 11/02/2022 18:33 Free T4 1.23 ng/dL ()?? 11/02/2022 18:33 ?? HEME OTHER Hold Lavender Top SPECIMEN DISCARDED AFTER 24 HOURS. ()?? 11/03/2022 10:43 ?? MISC. CHEMISTRY Hold Gel Top SPECIMEN DISCARDED AFTER 1 WEEK ()?? 11/02/2022 18:33 ?? URINE OTHER Est Creatinine Clearance 61.20 mL/min ()?? 11/03/2022 11:27 ?? VIROLOGY COVID-19 by RT-PCR POSITIVE (Abnormal)?? 11/03/2022 00:17 ? Blood Glucose Trend Glucose Level:??107 mg/dL??High (11/03/22 10:43:00) Glucose Level:??100 mg/dL??High (11/02/22 18:33:00) Glucose, POC:??113 mg/dL??High (11/03/22 04:47:00) ? Urinalysis Est Creatinine Clearance: 61.2 mL/min (11:27) Est Creatinine Clearance: 52.46 mL/min (03:56) Est Creatinine Clearance: 48.49 mL/min (03:55) Est Creatinine Clearance: 55.44 mL/min (03:01) ?? Microbiology ?? COVID-19 (Novel Coronavirus), Rapid PCR?? Completed?? Source: Nasal Body Site: Nose Collected Dt/Tm: 11/02/2022 23:43 Last Updated Dt/Tm: 11/03/2022 01:36 ? * Viola MD, Darwin L: PERFORM Event Display: Consultation Note Authored Date: [id number] I personally saw and examined the patient and agree with the findings and plan as noted below.?? Patient is a 77 yo female with hypothyroid, type 2 diabetes, hypertension, hyperlipidemia, atrial fibrillation??on Xarelto, restless leg syndrome and Parkinson's who presents with??falls and fluctuatingmentation.?? Now with COVID, atrial fibrillation with RVR.?? Recent patellar fracture and now with L2 fracture as well.?? Noted on exam to be somnolent but arousable and able to follow simple commands.?? Patient with recent LP at [facility]. ?? Impression: toxic/metabolic encephalopathy, recommend treatment of infection, control of heart rate, delirium precautions, pain control. ? Note * Bladimir JOHNSON, Louie: PERFORM Event Display: Discharge/Transfer Note Hospital Authored Date: Patient: ??TERESA POWELL ? Age:??77 Years?Sex:??Female?:??1945?? Patient Information Discharge Location: B Primary Care Physician: Not on Staff, PCP Admit Date/Time: 11/02/22 23:45 Discharge Disposition Discharge Disposition: Shelter Facility/Rehab ?? [facility] [place] ?? Discharge Diagnosis Agitation (R45.1) Metabolic encephalopathy (G93.41) Recent acute COVID-19 illness (10/21/2022). (U07.1) RLS (restless legs syndrome) (G25.81) Parkinsonism (G20) Delirium (R41.0) Moderate dementia with agitation (F03.B11) Dementia (F03.90) Atrial fibrillation with RVR (I48.91) Hypertension (I10) Hyperlipidemia (E78.5) Frequent falls (R29.6) Fracture of right-side transverse process of L2 lumbar vertebra (S32.009A) Right-side comminuted patellar fracture (S82.009A) DM2 (diabetes mellitus, type 2) (E11.9) Hypothyroidism (E03.9) Asthma (J45.909) ?? _ Discharge Medications Acetaminophen (acetaminophen 325 mg oral tablet)?975?Milligram?By Mouth?Every 6 hours?Temperature Greater than 100.5 Atorvastatin (Lipitor 10 mg oral tablet)?4?tab(s)?40?Milligram?By Mouth?Daily Calcium And Vitamin D Combination (calcium (as citrate)-vitamin D 315 mg-250 intl units oral tablet)?1?tab(s)?By Mouth?2 times a day Carbidopa-Levodopa (Sinemet 25 mg-100 mg oral tablet)?1?tab(s)?By Mouth?3 times a day Cetirizine?10?Milligram?By Mouth?Daily Cholecalciferol (Vitamin D3 5000 intl units oral capsule)?1?capsule?125?Microgram?ByMouth?Daily?with food Empagliflozin (Jardiance 25 mg oral tablet)?1?tab(s)?25?Milligram?By Mouth?Daily in AM Levothyroxine (Synthroid)?137?Microgram?By Mouth?Daily Metoprolol (metoprolol 25 mg oral tablet)?25?Milligram?By Mouth?2 times a day Montelukast?10?Milligram?By Mouth?Daily Nystatin Topical (Nystatin Ointment)?1?applicator?Topically?3 times a day Omeprazole?20?Milligram?By Mouth?Daily Oxycodone (oxyCODONE 5 mg oral tablet)?2.5?Milligram?By Mouth?Every 6 hours?as needed?Pain , Severe Rivaroxaban (Xarelto 20 mg oral tablet)?1?tab(s)?20?Milligram?By Mouth?Daily in PM ? Medications Started * PRN TYlenol / PRN low-dose oxycodone for pain control * Nystatin ointment for Jaz vaginitis * Metoprolol for HR / atrial fibrillation ?? Medications Discontinued * Losartan on HOLD for now due to lowish-normalish BP's * Bisoprolol stopped and switched to metoprolol * Gabapentin stopped due to oversedation / encephalopathy ?? Allergies Allergies ?(Active and Proposed Allergies Only) aspirin? (Severity: Unknown severity, Onset: Unknown) ?Reactions: throat gets tight ? PCP Follow-Up/Heads-Up ?? Prompt f/u with PCP & Orthopedic Surgery for post-discharge eval, medication adjustments & plan of care ?? -- Objective Assessment and Plan ?? Assessment:? Ms. Schulte is our sweet and pleasant but very unfortunate 77 y.o. Prydeinig lady, partially fluent bilingually but preferentially Angolan-speaking, a resident of [facility] (gets most of her care via [facility]), with a h.o. DM-2, hypertension, hyperlipidemia, atrial fibrillation on rivaroxaban, hypothyroidism, asthma, GERD, OA / DJD / spinal stenosis s/p L4-L5-S1 decompression /fusion / instrumentation (09/2021, Dr. Johnson) and a h.o. parkinsonian symptoms / severe RLS / periodic limb movements of sleep / early dementia, who had had a very recent inpatient stay at [facility] (09/29 - 10/06/2022) with severe metabolic encephalopathy / agitation requiring ICU care and full sedation, as well as several recent falls and a right patellar comminuted fracture, who was recently diagnosed as an outpatient on 10/21/2022 with acute COVID-19 (+) illness, admitted on 11/02/2022 due to frequent / recurrent falls / failure to thrive / atrial fibrillation with RVR. She was also found to have a right-side L2 transverse process fracture ?? Her hospital course became promptly complicated by florid agitation / encephalopathy / confusion requiring transfer into [address] on 11/03/2022 Brain MRI with / without contrast was c.w. moderate tissue loss / moderate dementia, but otherwise (-) for stroke / demyelinating disease / viral encephalitis She gradually improved and is now back to normal / baseline mentation. NG tube removed, passed ST eval well, on dental soft??diet / thin liquids. ?? PT eval recommends rehab. Going to [facility] in [facility] - Has a knee immobilizer for the patellar fracture. Can do weight-bearing as tolerated with the knee immobilizer in place padded posteriorly at top and bottom and NO knee bending. Close outpatient f/u with her outpatient Orthopedic surgeon at [facility] - No indication for L-spine bracing, as it is an L2 transverse process fracture ?? Agitation (R45.1):??. Metabolic encephalopathy (G93.41):??. Recent acute COVID-19 illness (10/21/2022). (U07.1):??. RLS (restless legs syndrome) (G25.81):??. Parkinsonism (G20):??. Delirium (R41.0):??. Moderate dementia with agitation (F03.B11):??. Dementia (F03.90):? Challenging scenario... has had gradual deterioration over the past few months, and had already hada recent inpatient stay at [facility] (09/2022) with severe metabolic encephalopathy / agitation requiring ICU care and full sedation... seems to have??some sort of??underlying subcortical disorder with parkinsonism / RLS / PLMS.... On top of that, recent COVID-19 illness (10/21/2022), which is notorious for its propensity to lead to encephalopathy??/ fogginess especially in a frail vulnerable elder... Her neurologist, Dr. Cleveland, had recently started a trial of carbidopa-levodopa Brain MRI??is c.w. moderate tissue loss / dementia, but otherwise (-) for stroke / demyelinating disease / viral encephalitis Plan: * On dental soft diet with thin liquids and??aspiration precautions * No longer needs COVID-19 isolation, as she is > 14 days out of initial diagnosis * Gabapentin stopped due to oversedation / encephalopathy * On carbidopa-levodopa * In-house, she received??PRN lorazepam / PRN haloperidol for agitation, but is NOT being discharged on any of that, as she is back to baseline. * Gently reorient and encourage sleep / wake cycle * Avoid sedatives / benzodiazepines / antihistamines / anticholinergics.?? * PT mahial recommends rehab. Going to [facility] in [place]? Atrial fibrillation with RVR (I48.91):??. Hypertension (I10):??. Hyperlipidemia (E78.5):? Improving Weaned off diltiazem drip overnight 11/06 into 11/07/2022 Plan: * On metoprolol + atorvastatin +??rivaroxaban Continue fine-tuning dose * Losartan will remain on HOLD for now due to lowish BP's Depending on clinical course, might need to re-introduce it at a lower dose ?? Frequent falls (R29.6):??. Fracture of right-side transverse process of L2 lumbar vertebra (S32.009A):??. Right-side comminuted patellar fracture (S82.009A):? She has an Orthopedic surgeon at [facility] Plan: *??Has a knee immobilizer for the patellar fracture. Can do weight-bearing as tolerated with the knee immobilizer in place padded posteriorly at top and bottom and NO knee bending. * Close outpatient f/u with her outpatient Orthopedic surgeon at [facility] *??No indication for L-spine bracing, as it is an L2 transverse process fracture * Proactive pain control On PRN Tylenol / PRN low-dose PRN oxycodone Gabapentin stopped due to oversedation / encephalopathy Tramadol stopped due to worsening parkinsonism symptoms ?? DM2 (diabetes mellitus, type 2) (E11.9):? At home she is on empagliflozin In-house, she was off any glucose-lowering agents, as her POC's were OK-otis ?? Hypothyroidism (E03.9):? On levothyroxine ?? Asthma (J45.909):? On montelukast ?? GERD (K21.9):. On PPI ? -- ? Vital Signs?? Temperature: 97.5 DegF (11/08/22 12:00:00) Temperature Route: Axillary (11/08/22 12:00:00) Normothermic Measures: Other: warm blankets (11/07/22 13:00:00) Pulse Rate:??94 bpm??High (11/08/22 12:00:00) Heart Rate Monitored: 59 bpm (11/08/22 10:00:00) Respiratory Rate: 18 br/min (11/08/22 12:00:00) Vented: No (11/08/22 11:00:00) Systolic Blood Pressure: 119 mm Hg (11/08/22 12:00:00) Diastolic Blood Pressure: 63 mm Hg (11/08/22 12:00:00) Blood pressure sites: Arm, left (11/08/22 10:00:00) Pulse Pressure: 56 mm Hg (11/08/22 12:00:00) Oxygen Saturation: 100 % (11/08/22 12:00:00) Mode of Delivery (Oxygen): Room air (11/08/22 12:00:00) Early Warning Score: 2 (11/08/22 12:21:10) ? . Physical Exam Afebrile, Tmax = 97.5 F, HR = 86', BP =??119 / 63 Elderly, frail, normocephalic, MINDA, no thrush, on room air Clear chest to auscultation S1 / S2 no murmur Labette abdomen, no rebound LEs (-) for edema.?? Neurologically??back to baseline, pleasant, chatty, A&O. _ Follow-Up Appointments Added Follow Up ?Time Frame ?Comments Not on Staff, PCP Orthopedic Surgery, [facility] ?? FIRST AVAILABLE ?? Results Test Name Test Result Date/Time WBC 10.6 k/mm3 11/08/2022 05:02 EDT Hgb 12.3 Gm/dL 11/08/2022 05:02 EDT Hct 38.7 % 11/08/2022 05:02 EDT Platelet Count 312 k/mm3 11/08/2022 05:02 EDT Sodium 137 mmol/L 11/08/2022 05:02 EDT Potassium 4.3 mmol/L 11/08/2022 05:02 EDT Chloride 103 mmol/L 11/08/2022 05:02 EDT Bicarbonate Level 23 mmol/L 11/08/2022 05:02 EDT Anion Gap 11 11/08/2022 05:02 EDT BUN 11 mg/dL 11/08/2022 05:02 EDT Creatinine-Blood 0.5 mg/dL 11/08/2022 05:02 EDT Estimated GFR Creatinine 97 ML/MIN/1.73 M2 11/08/2022 05:02 EDT Phosphorus 3.0 mg/dL 11/08/2022 05:02 EDT Magnesium 2.0 mg/dL 11/08/2022 05:02 EDT 45??minutes spent on discharge summary / bedside care / coordination of care * Shantelle Barrios RN: PERFORM Event Display: Patient Education/Instruction Authored Date: [id number] Inpatient Adult Discharge Instructions [address] [address] Name: TERESA NINO : 1945 Visit: 11/02/2022 23:45:00 Current Date: 11/08/2022 17:08 Account: [id number] Inpatient Adult Discharge Instructions We would like to thank you for allowing us to assist you with your healthcare needs. The following includes patient education materials and information regarding your injury/illness. Our entire staffstrives to provide an excellent experience for our patients and their families. PLEASE ENSURE YOU FOLLOW-UP PER THE INSTRUCTIONS BELOW! ?? YOUR OPINION IS IMPORTANT TO US! Please complete the survey you may receive by mail or email. Your feedback will be used to make improvements to the healthcare experiences of our patients and their families. Surveys are administered by [employer] ?? If further treatment with your primary care physician or another doctor is recommended, it is important for you to keep the appointment. Call your primary care physician or return to the Emergency Department immediately if your condition worsens, fails to improve, or new symptoms develop. If you need to find a doctor, you can call [facility] Link for a referral at [phone] or toll free at [phone]) or log in to [email or web address].. ?? [facility], in keeping with [facility] guidance, no longer requires face masks for staff, patientsor visitors in most situations. Similiar to time spent indoors at other locations, there is the chance that you were exposed to repiratory viruses during your time with us (such as flu or COVID-19). If you develop symptoms concerning for a viral respiratory infection, please seek testing (and treatment if indicated) from your medical provider or home test kit. ?? You can view and manage your care through the patient portal or by using a health care anaya of your choosing. [employer] is a website that allows you to securely view your medical information including your hospital discharge summary, office visit summaries, medications and follow-up visits. You can also request appointments, renew medications, and request access to your medical information using a health care anaya of your choosing, or just ask a question. You can enroll at [email or web address] or register during your next office visit. You have been discharged from [facility], Patient Care Unit: D6B. If you have any questions regarding these instructions after you leave, please call us and we will be happy to assist you. [facility] Your Care Team Attending Physician Louie Garrison MD Consulting Providers Berkley Shah MD Discharging Providers Louie Garrison MD Reason for Admission Pt from home with AMS, multiple fallls over the three weeks. + blood thinners. Your Diagnosis Frequent falls Delirium Atrial fibrillation with RVR COVID Hypertension Hyperlipidemia Metabolic encephalopathy Agitation RLS (restless legs syndrome) Parkinsonism Dementia Hypothyroidism DM2 (diabetes mellitus, type 2) Asthma Fracture of transverse process of lumbar vertebra Patella fracture Moderate dementia with agitation Tests Performed Below is a partial list of the tests performed during your hospitalization. You may have had other tests and procedures not included in this list. Please discuss all test results with your provider. ABG Ammonia Venous Amphetamine Urine Screen Barbiturate Urine Screen Basic Metabolic Panel Benzodiazepine Urine Screen BUN Cannabinoid Urine Screen CBC CBC w/ Differential Cocaine Urine Screen COVID-19 (Novel Coronavirus), Rapid PCR Creatinine CRP FREE T4 GLUCOSE POC HEPATIC FUNCTION PANEL High??Sensitivity??Troponin T HOLD GEL TUBE HOLD LAVENDER TUBE INR Lactate Level LFT's Lytes Magnesium Level Opiate Screen Urine Phosphorus Level Troponin T, High Sensitivity TSH with T4 Reflex (Adults Only) Urinalysis w/hold for Urine Culture Brain MRI W+W/O Contrast CT Cervical Spine W/O Contrast CT Head/Brain W/O Contrast CT Lumbar Spine W/O Contrast PCXR Portable Chest XR Chest Single Frontal View XR Humerus Min 2 Views Right XR Knee 1 or 2 Views Right XR Tibia/Fibula 2 Views Right Primary Care Provider Not on Staff, PCP Advance Directive Health Care Proxy on File Yes - Health Care Proxy Discharge Vitals Temperature: 98.1 DegF Height: 155 cm Pulse Rate:??94 bpm??High Weight: 72.5 kg Respiratory Rate: 18 br/min Body Mass Index:??30.18 kg/m2??Critical Systolic Blood Pressure: 131 mm Hg Body surface area: 1.77 Diastolic Blood Pressure: 76 mm Hg ?? Oxygen Saturation: 100 % ?? Studies Pending All tests and labs ordered during this hospital stay have been completed unless listed below. Please discuss all pending results with your provider listed above in these instructions. ?? Add On Lab Order What to do next Instructions From Your Doctor Discharge Orders You Need to Schedule the Following Appointments Follow Up with??Not on Staff, PCP Discharge Medications ZAOMRATERESA BECERRIL :1945 Visit Date:11/02/2022 Medications: Please continue your medications until treatment is completed or stopped by your provider. Medications not listed below should be discontinued. Discuss any questions related to medications with your provider. What How Much When Instructions Next Dose New Acetaminophen (acetaminophen 325 mg oral tablet) 975 Milligram Oral Every 6 hours Temperature Greater than 100.5 ?? 11/08 2099 New Metoprolol (metoprolol 25 mg oral tablet) 25 Milligram Oral Twice a day 11/08 2099 New Nystatin Topical (Nystatin Ointment) 1 applicator Topically 3 times a day 11/08 2099 New Oxycodone (oxyCODONE 5 mg oral tablet) 2.5 Milligram Oral Every 6 hours as needed for Pain , Severe As needed Changed Atorvastatin (Lipitor 10 mg oral tablet) 4 tab(s) Oral Daily 11/09 899 Unchanged Calcium And Vitamin D Combination (calcium (as citrate)-vitamin D 315 mg-250 intl units oral tablet) 1 tab(s) Oral Twice a day 11/08 2099 Unchanged Carbidopa-Levodopa (Sinemet 25 mg-100 mg oral tablet) 1 tab(s) Oral 3 times a day 11/08 2099 Unchanged Cetirizine 10 Milligram Oral Daily 11/09 899 Unchanged Cholecalciferol (Vitamin D3 5000 intl units oral capsule) 1 capsule Oral Daily with food ?? 11/09 899 Unchanged empagliflozin (Jardiance 25 mg oral tablet) 1 tab(s) Oral Daily in the morning 11/09 899 Unchanged Levothyroxine (Synthroid) 137 Microgram Oral Daily 11/09 599 Unchanged Montelukast 10 Milligram Oral Daily 11/08 2099 Unchanged Omeprazole 20 Milligram Oral Daily 11/09 899 Unchanged rivaroxaban (Xarelto 20 mg oral tablet) 1 tab(s) Oral Daily in PM 11/08 2099 ?? What How Much When Comments Stop Taking Bisoprolol 25 Milligram Oral Daily Stop Taking Clonazepam (clonazePAM 0.125 mg oral tablet, disintegrating) 1 tab(s) Oral Daily as needed for Agitation Stop Taking Gabapentin (gabapentin enacarbil 300 mg oral tablet, extended release) 1 tab(s) Oral Twice a day as needed for Agitation Stop Taking Losartan (losartan 25 mg oral tablet) 1 tab(s) Oral Daily Stop Taking Losartan (losartan 50 mg oral tablet) 1 tab(s) Oral Daily Stop Taking Metformin (metFORMIN 500 mg oral tablet) 1 tab(s) Oral Daily Stop Taking Tramadol 50 Milligram Oral Every 4 hours as needed for Pain , Moderate Test Results Below is a partial list of the most recent Laboratory test results done prior to this discharge. You may have had other tests and procedures not included in this list. Please discuss all test resultswith your provider. Est Creatinine Clearance - 73.44 mL/min (11/08/2022) ABG (11/03/2022) ???pH - 7.42???pCO2 - 40 mm Hg???pO2 - 71 mm Hg???Bicarbonate, Estimated - 25 mmol/L???Specimen Type - Blood Gas - ARTERIAL???Percent O2 (FIO2) - 21 Ammonia Venous (11/03/2022) ???Ammonia, Venous - 35 ??mole/L Amphetamine Urine Screen (11/03/2022) ???Amphetamine Screen, Urine - NONE DETECTED Barbiturate Urine Screen (11/03/2022) ???Barbiturate Screen, Urine - NONE DETECTED Basic Metabolic Panel (11/04/2022) ???Sodium - 141 mmol/L???Potassium - 4.0 mmol/L???Chloride - 106 mmol/L???Bicarbonate Level - 24 mmol/L???Anion Gap - 11???Glucose Level - 113 mg/dL???BUN - 11 mg/dL???Creatinine-Blood - 0.6 mg/dL???Estimated GFR Creatinine - 92 ML/MIN/1.73 M2???Calcium - 9.4 mg/dL Benzodiazepine Urine Screen (11/03/2022) ???Benzodiazepine Screen, Urine - NONE DETECTED BUN (11/08/2022) ???BUN - 11 mg/dL Cannabinoid Urine Screen (11/03/2022) ???Cannabinoid Screen, Urine - NONE DETECTED CBC (11/08/2022) ???WBC - 10.6 k/mm3???RBC - 4.47 m/mm3???Hgb - 12.3 Gm/dL???Hct - 38.7 %???MCV - 86.6 femtoliters???MCH - 27.5 pg???MCHC - 31.8 g/dL???Platelet Count - 312 k/mm3???RDW-SD - 43.0 femtoliters???MPV - 11.2 femtoliters???Nucleated RBC (Automated) - 0.0 #/100 WBC'S???Abs. NRBC - 0.0 k/mm3 CBC w/ Differential (11/02/2022) ???WBC - 11.0 k/mm3???RBC - 4.73 m/mm3???Hgb - 13.1 Gm/dL???Hct - 40.5 %???MCV - 85.6 femtoliters???MCH - 27.7 pg???MCHC - 32.3 g/dL???Platelet Count - 319 k/mm3???RDW-SD - 42.1 femtoliters???MPV - 10.5 femtoliters???Nucleated RBC (Automated) - 0.0 #/100 WBC'S???Abs. NRBC - 0.0 k/mm3???Abs. Neut - 7.2 k/mm3???Abs. Lymph - 2.5 k/mm3???Abs. Dunn - 1.0 k/mm3???Abs. Eo - 0.1 k/mm3???Abs. Baso - 0.1 k/mm3???Neut % - 65.5 %???Lymph % - 23.2 %???Dunn % - 9.3 %???Eos % - 0.9 %???Baso % - 0.7 %???Imm Gran - 0.4 %???Abs. Imm Gran - 0.0 k/mm3 Cocaine Urine Screen (11/03/2022) ???Cocaine Metabolite Screen, Urine - NONE DETECTED COVID-19 (Novel Coronavirus), Rapid PCR (11/03/2022) ???COVID-19 by RT-PCR - POSITIVE Creatinine (11/08/2022) ???Creatinine-Blood - 0.5 mg/dL???Estimated GFR Creatinine - 97 ML/MIN/1.73 M2 CRP (11/07/2022) ???C-Reactive Protein - 4.4 mg/dL FREE T4 (11/02/2022) ???Free T4 - 1.23 ng/dL GLUCOSE POC (11/08/2022) ???Glucose, POC - 117 mg/dL HEPATIC FUNCTION PANEL (11/03/2022) ???Protein, Total - 6.5 Gm/dL???Albumin - 3.6 Gm/dL???Alkaline Phosphatase - 68 units/L???AST (SGOT) - 27 units/L? ?ALT (SGPT) - 16 units/L? ?Bilirubin, Total - 0.8 mg/dL? ?Bilirubin, Direct - <0.2 mg/dL???Bilirubin, Indirect - Direct bilirubin is less than the measureable limit. Therefore, indirect High??Sensitivity??Troponin T (11/02/2022) ???High Sensitivity Troponin (HSTnT) - 10 ng/L HOLD GEL TUBE (11/02/2022) ???Hold Gel Top - SPECIMEN DISCARDED AFTER 1 WEEK HOLD LAVENDER TUBE (11/03/2022) ???Hold Lavender Top - SPECIMEN DISCARDED AFTER 24 HOURS. INR (11/02/2022) ???INR - 1.0???Protime (PT) - 11.0 seconds Lactate Level (11/03/2022) ???Lactate - 1.3 mmol/L LFT's (11/07/2022) ???Protein, Total - 6.6 Gm/dL???Albumin - 3.8 Gm/dL???Alkaline Phosphatase - 79 units/L???AST (SGOT) - 26 units/L? ?ALT (SGPT) - 9 units/L? ?Bilirubin, Total - 0.4 mg/dL? ?Bilirubin, Direct - <0.2mg/dL???Bilirubin, Indirect - Direct bilirubin is less than the measureable limit. Therefore, indirect Lytes (11/08/2022) ???Sodium - 137 mmol/L???Potassium - 4.3 mmol/L???Chloride - 103 mmol/L???Bicarbonate Level - 23 mmol/L???Anion Gap - 11 Magnesium Level (11/08/2022) ???Magnesium - 2.0 mg/dL Opiate Screen Urine (11/03/2022) ???Opiate Screen, Urine - NONE DETECTED Phosphorus Level (11/08/2022) ???Phosphorus - 3.0 mg/dL Troponin T, High Sensitivity (11/03/2022) ???High Sensitivity Troponin (HSTnT) - 14 ng/L TSH with T4 Reflex (Adults Only) (11/02/2022) ???TSH - 6.58 uIU/mL Urinalysis w/hold for Urine Culture (11/03/2022) ???Appear/Color, Urine - LIGHT YELLOW???Specific Rowe, Urine - 1.017???pH, Urine - 7.0???Albumin, Urine - TRACE???Glucose, Urine - NEGATIVE???Ketones, Urine - NEGATIVE???Bilirubin, Urine - NEGATIVE???Hemoglobin, Urine - NEGATIVE???Nitrite, Urine - NEGATIVE???Leukocyte, Urine - NEGATIVE???Urobilin ogen - NORMAL???WBC's, Urine - 2 /HPF???RBC's, Urine - 2 /HPF???Bacteria - SLIGHT???Squamous Epith - 1 /HPF???Mucus - SLIGHT???Hold Urine Culture - Testing available 48 hours from time of collection. Allergies (NKA means No Known Allergies) aspirin??(throat gets tight) Problems Active Problems??(1) Obese class I?? Education Materials Below is the list of Educational Leaflet Providered with your Discharge Instructions. Valuables and Belongings I fully understand and agree that [facility] accepts no responsibility for all my personal property including clothing, toilet articles, radios, jewelry, dentures, hearing aids, rings, money, or any other property that is in my possession or is brought to me after admission. I understand certain valuables may be placed in a hospital safe for a short period of time. I understand that the hospital is not liable for loss or damage due to accident, fire, or other natural occurrence while said property is in the safe. I accept full responsibility for any personal property that I keep with me, and will not hold the hospital responsible in case of loss or disappearance. I acknowledge that i have been encouraged to send valuables and belongings home. ?? Review of Valuable and Belonging List: With witness Date for Pt to Sign Valuables/Belongings: 11/03/22 14:08:00 ?? Other Discharge Information ? Case Management Discharge Plan?? Discharge Plan?? Discharge Level of Care at Discharge: long-term facility Discharge Transportation Arranged: [facility] [address] [facility] [id number] [phone] Mode of Transportation Arranged: Ambulance Discharge Arranged Transport Date/Time: 11/08/22 16:00:00 Discharge Nursing Homes/Rehab Facilities: [facility] ?? Pulmonary Rehab Status?? Pulmonary Rehab Discharge Status?? Respiratory Rate: 18 br/min ? Common Emergency Awareness Tips IS IT A STROKE? Act FAST and Check for these signs: FACE Does the face look uneven? ARM Does one arm drift down? SPEECH Does their speech sound strange? TIME Call at any sign of stroke ?? Heart Attack Signs Chest discomfort: Most heart attacks involve discomfort in the center of the chest and lasts more than a few minutes, or goes away and comes back. It can feel like uncomfortable pressure, squeezing, fullness or pain. Discomfort in upper body: Symptoms can include pain or discomfort in one or both arms, back, neck, jaw or stomach. Shortness of breath: With or without discomfort. Other signs: Breaking out in a cold sweat, nausea, or lightheaded. Remember, MINUTES DO MATTER. If you experience any of these heart attack warning signs, call to get immediate medical attention! ?? Smoking can increase your chances of developing chronic health problems and can cause harmful effects to other family members in your house. If you smoke, you are strongly encouraged to quit. Please call [facility] Link at [phone] or [phone] ([phone]) or log in to [email or web address] for referrals to smoking cessation programs. ?? 449 Suicide & Crisis Lifeline is available 30/08 if you or someone you know needs to find a reason to keep living. By calling 129 you'll be connected to a skilled, trained counselor at a crisis center in your area. INPATIENT DISCHARGE INSTRUCTIONS SIGNATURE PAGE ZAMORA JARED TERESA Location:[facility] Registration Date and Time:11/02/2022 23:45 EDT Primary Care Physician: Not on Staff, PCP Attending Physician: Bladimir JOHNSON, Louie, I TERESA POWELL, have received the above patient education materials/instructions and haveverbalized understanding. If ambulance or transport services are being used I further acknowledge being given a choice of service. ?? If you need to contact me, please call me at this number: . Patient/Agricultural Engineering Teacher Name: Patient/Agricultural Engineering Teacher Signature: Relationship to Patient: Witness Name/Signature: Date: Patient Care team information Care Team Personnel Name: Arleen Noe RN Position: [facility] RN Member Role: Primary Care Nurse Name: Parth Li RN Position: [facility] RN Member Role: Primary Care Nurse Name: Daniella Valenzuela RN Position: [facility] RN Member Role: Primary Care Nurse Name: Not on Staff, PCP Position: [facility] Physician (General Medicine) Member Role: PCP Name: Taz Figueroa RN Position: [facility] RN Member Role: Primary Care Nurse Name: Vance Regalado RN Position: [facility] RN Member Role: Primary Care Nurse Name: Hima García RN Position: [facility] RN Member Role: Primary Care Nurse Name: Kaycee Arteaga RN Position: [facility] RN Member Role: Primary Care Nurse Name: Castro CELESTIN Attending Position: [facility] ED Medicine Name: Annelise Adam RN Position: [facility] ED RN W/OE and Tasks Member Role: Patient Care Provider Name: Jenae Maldonado Position: [facility] ED OA Charge Member Role: ED Associate Name: Sonam Sandoval Position: [facility] ED TA [facility] Member Role: Patient Care Provider Name: Lucie Wright MD Position: [facility] Resident Member Role: ED Resident Address: Address: [address] [place] [address] [place] [address]- Care Team Related Persons Name: MONY CRAIG
--- OUTSIDE RECORDS SUMMARY | 2023-08-19 16:09 | XMS_ITS | Continuity of Care Document ---
Author Organization [facility] Address [address] [place] [id number]- Care Team Providers Care Enterostomal Nurse Name Role Phone Not on Staff, PCP Primary Care Physician Unavail able Encounter [facility] Date(s): 11/29/22 - 03/13/[address] [id number] Attending Physician: Nika Payan NP Admitting Physician: Nika Payan NP Referring Physician: Nika Payan NP Allergies, Adverse Reactions, Alerts Substance Reaction Severity Status aspirin throat gets tight Active Immunizations Given and Recorded Vaccine Date Status Refusal Reason pneumococcal 20-valent conjugate vaccine 09/08/22 Recorded tetanus/diphtheria/pertussis, acel(Tdap) 09/08/22 Recorded influenza virus vaccine, inactivated 12/17/21 Miller rded influenza virus vaccine, inactivated 12/04/20 Miller rded [id number] 12y+ bivalent booster vax 12/17/21 Recorded SARS-CoV-2 [...] opioid drug. Start Date: 11/08/22 Status: Ordered Montelukast = 10 mg, By [...] opioid drug. Start Date: 11/08/22 Status: Ordered Sinemet 25 mg-100 mg oral tablet 1 [...] atus Informant Obese class I Confirmed Active Patient Care team information Care Team Personnel Name: Arleen Noe RN Position: [facility] RN Member Role: Primary Care Nurse Name: Parth Li RN Position: [facility] RN Member Role: Primary Care Nurse Name: Not on Staff, PCP Position: [facility] Physician (General Medicine) Member Role: PCP Name: Taz Figueroa RN Position: S RN Member Role: Primary Care Nurse Name: Vance Regalado RN Position: S RN Member Role: Primary Care Nurse Name: Hima García RN Position: S RN Member Role: Primary Care Nurse Name: Kaycee Arteaga RN Position: S RN Member Role: Primary Care Nurse Care Team Related Persons Name: YAMILA MOLINA
--- OUTSIDE RECORDS SUMMARY | 2023-08-19 16:09 | XMS_ITS | Patient Health Record ---
Author Organization [facility] Address [address] [place] [address] Care Team Providers Care Fish Roe Processor Name Role Phone Carlitos Rodriguez Primary Care Provider Unavaila ble Black, Robina Unavailable [phone] Kathleen Stoddard MD Unavailable Unavailable ALLERGIES Allergen [...] primary osteoarthritis of the ankle and/or foot (896876523) Problem Primary osteoarthritis, left ankle and foot (M19.072) Active confirmed Localized, primary osteoarthritis of the ankle and/or foot (285295697) Problem Hallux valgus (acquired), right foot (M20.11) Active confirmed Acquired hallu x valgus (29740241) Problem Other hammer toe(s) (acquired), right foot (M20.41) Active confirmed Acquired hamme r toe of right foot (9471990761072304 ) Problem Other hammer toe(s) (acquired), left foot (M20.42) Active confirmed Acquired hamme r toe of left foot (2882839499720446 ) Problem Type 2 diabetes mellitus with diabetic polyneuropathy (E11.42) Active confirmed Polyneuropathy due to type 2 diabetes mellitus (502784805) Problem Type 1 diabetes mellitus with diabetic polyneuropathy (E10.42) Active confirmed Polyneuropathy due to diabetes mellitus type I (523665030) Encounters Encounter Location Date Provider Diagnosis [facility] [address] [address] 11/11/2022 Robina Olmedo [facility] [address] [address] 11/11/2022 Robina Olmedo PLAN OF TREATMENT Pending Test Test Name Order Date Tc99 3 phase Bone Scan 07/28/2020 [id number] SKIN LESIONS, 2 TO 4 03/16/19 [id number] NAIL(S) 03/16/2021 Insurance Providers Payer Name Payer Address Payer Phone Subscriber Number Group Number Insured Name Patient Relationship to Insured Coverage Start Date Coverage End Date [facility] [employer] Claims [address] [place] [id number] Teresa Andrews Self - patient is the insured MEDICAL (GENERAL) HISTORY Medical History History ICD Code Anxiety asthma Back,Hip,and Knee pain Broken bones CAD (Cholesterol) type II diabetes Fibromyalgia Gall bladder problems High blood pressure chronic sinusitis thyroid Surgical History Surgery Date(Month/Year) hysterectomy wisdom teeth extraction colonoscopy endoscopy
--- OUTSIDE RECORDS SUMMARY | 2023-08-19 16:09 | XMS_ITS | Continuity of Care Document ---
Author Organization [facility] Address [address] [place] [id number]- Care Team Providers Care Investigations Chief Name Role Phone Not on Staff, PCP Primary Care Physician Unavail able Encounter [facility] Date(s): 01/13/23 - 03/13/[address] [id number] Attending Physician: Nika Payan NP Admitting Physician: Nika Payan NP Referring Physician: Nika Payan NP Allergies, Adverse Reactions, Alerts Substance Reaction Severity Status aspirin throat gets tight Active Immunizations Given and Recorded Vaccine Date Status Refusal Reason pneumococcal 20-valent conjugate vaccine 09/08/22 Recorded tetanus/diphtheria/pertussis, acel(Tdap) 09/08/22 Recorded influenza virus vaccine, inactivated 12/17/21 Miller rded influenza virus vaccine, inactivated 12/04/20 Miller rded [id number] 12y+ bivalent booster vax 12/17/21 Recorded SARS-CoV-2 [...] Team Personnel Name: Arleen Noe RN Position: [facility] RN Member Role: Primary Care Nurse Name: Parth Li RN Position: [facility] RN Member Role: Primary Care Nurse Name: Not on Staff, PCP Position: [facility] Physician (General Medicine) Member Role: PCP Name: [...]
--- NOTE | 2023-08-19 16:10 | PC.NURSE ---
Pt. presents via EMS for fall with HS on thinners. Upon arrival, pt. is alert and oriented but very lethargic. Arouses to gentle touch, but almost immediately falls asleep. Complaining of head pain. Chelsea Salcedo MD aware.
--- NOTE | 2023-08-19 16:15 | ED_ITS ---
HPI - General Adult General Chief complaint: Fall Stated complaint: fall + headstrike ,+thinners Time Seen by Provider: 08/19/23 16:14 Source: patient, RN notes reviewed and sloop captain (Chucky) Mode of arrival: EMS Limitations: language barrier History of Present Illness HPI narrative: 78-year-old female with a history of AFib on Xarelto, hypertension, diabetes, restless legs syndrome, presents for evaluation after a fall. Patient states she was sitting on her couch talking with her son when she got up, her slippers got caught on the coffee table or college, causing her to fall to the right side. Patient states he struck the right side of her head. She denies any LOC. Denies any prodromal symptoms. Despite initial triage report stating that the patient was dizzy, patient currently denies any dizziness or any dizziness at the time of the incident. She denies any chest pain and for breath. She denies any other recent falls. No fevers chills nausea or vomiting. She denies any neck or back pain. She is complaining of pain to the right hip. She was able to ambulate after the incident she denies any visual changes. Patient states she takes oxycodone for restless legs syndrome. She is due for her next dose. Related Data Home Medications ?Medication ?Instructions ?Recorded ?Confirmed blood sugar diagnostic #10 ea 11/23/19 03/16/23 montelukast 10 mg tablet 10 mg PO BEDTIME 11/23/19 03/16/23 rivaroxaban 20 mg tablet (Xarelto) 20 mg PO DAILY@1800 06/17/22 03/16/23 albuterol sulfate 90 mcg/actuation 2 puff inhalation Q4-6H PRN dyspnea 07/24/22 03/16/23 aerosol inhaler (Ventolin HFA) levothyroxine 137 mcg tablet 137 mcg PO DAILY@0600 07/24/22 03/16/23 diltiazem HCl 120 mg 120 mg PO DAILY 09/14/22 03/16/23 capsule,extended release 24 hr rosuvastatin 5 mg tablet 5 mg PO BEDTIME 09/14/22 03/16/23 sitagliptin phosphate 100 mg 100 mg PO QAM 09/14/22 03/16/23 tablet (Januvia) diltiazem HCl 60 mg 60 mg PO QAM 09/26/22 03/16/23 capsule,extended release 12 hr lidocaine 5 % topical patch 1 patch topical DAILY PRN Pain 09/26/22 03/16/23 tramadol 50 mg tablet 50 mg PO Q12H PRN severe pain 09/26/22 02/28/23 carbidopa 25 mg-levodopa 100 mg 1 tab PO TID 12/23/22 03/16/23 tablet alendronate 70 mg tablet 70 mg PO QWEEK 02/28/23 03/16/23 oxycodone 5 mg tablet mg PO DAILY 02/28/23 03/16/23 Previous Rx's ?Medication ?Instructions ?Recorded walker #1 ea 02/29/20 blood-glucose meter (FreeStyle #1 ea 06/19/20 Lite Meter kit) lancets 28 gauge (FreeStyle #100 ea 06/19/20 Lancets) blood sugar diagnostic (FreeStyle #100 ea 11/12/21 Lite Strips) cholecalciferol (vitamin D3) 50 50 mcg PO DAILY 90 days #90 caps 11/27/21 mcg (2,000 unit) capsule bisoprolol fumarate 5 mg tablet 5 mg PO DAILY #30 tabs 07/29/22 fluticasone 500 mcg-salmeterol 50 1 ea PO BID #60 ea 01/17/23 mcg/dose blistr powdr for inhalation pantoprazole 40 mg tablet,delayed 40 mg PO DAILY #30 tabs 04/01/23 release plecanatide 3 mg tablet (Trulance) 3 mg PO DAILY #30 tabs 04/01/23 docusate sodium 100 mg capsule 100 mg PO BEDTIME #90 caps 05/06/23 Allergies Allergy/AdvReac Type Severity Reaction Status Date / Time aspirin [ASPIRIN] Allergy Severe ANAPHYLAXIS Verified 08/19/23 16:13 Seasonal Allergies Allergy Intermediate asthma, Verified 08/19/23 16:13 itch, rash Review of Systems 2 Constitutional: Constitutional: Denies chills, Denies fever(s) and Reports headache(s) (Localized to the right side of the head at site of contusion) Eyes: Eyes: Denies change in vision and Denies other (No redness.) ENT: Reports headache(s) (Localized to the right side of the head at site of contusion) and Denies neck pain Cardiovascular: Cardiovascular: Denies chest pain, Denies palpitations and Denies dyspnea Respiratory: Respiratory: Denies cough and Denies dyspnea Gastrointestinal: Gastrointestinal: Denies abdominal pain, Denies melena, Denies hematochezia, Denies diarrhea, Denies nausea and Denies vomiting Genitourinary: Genitourinary: Denies dysuria and Denies urinary urgency Musculoskeletal: Musculoskeletal: Denies back pain, Denies muscle weakness, Denies neck pain and Denies numbness Integumentary/Breasts: Skin/Breast: Denies rash Neurologic: Reports headache(s) (Localized to the right side of the head at site of contusion), Denies focal weakness and Denies numbness Psychiatric: Psychiatric: Denies depression Endocrine: Endocrine: Denies palpitations PMFSH Past Medical History Medical History Other bursal cyst, right hip Atherosclerotic cardiovascular disease Permanent atrial fibrillation Abnormal nuclear stress test Restless leg syndrome CHF (congestive heart failure) DM2 (diabetes mellitus, type 2) Essential hypertension Autoimmune thyroiditis Overweight (BMI 25.0-29.9) Arthritis Depression with anxiety Diabetes Addiction, opium Moderate persistent asthma Vitamin D deficiency Hypertension Osteopenia Obesity (BMI 30-39.9) Dyslipidemia Hypothyroidism (acquired) Diabetes type 2, uncontrolled Surgical History Hx of cataract surgery Hx of arthroscopy of knee History of radical hysterectomy Family History Family History Father Diabetes Mother No problems noted. Son Substance use disorder Social History Social History Household Members: Unknown / Unable to assess Housing: Unknown / Unable to assess Do you presently have visiting nurse or other home services: Yes Unable to assess alcohol history related to: Unable to respond Alcohol intake: never Comment: 1:1 sitter Patient Tobacco Use Status: Former Tobacco user e-Cigarette/Vaping Use: Never Used Second Hand Smoke Exposure: No Substance Use Type: Unknown Advance Directives: Yes Advance Directives on File: Yes Advance Directives Date on File: 07/30/22 Do you have a plan to hurt others: No Plan service: No Current occupational status: retired Physical Exam ED Vital Signs: Vital Signs - 24 hr 08/19/23 16:02 08/19/23 16:21 08/19/23 18:35 Temperature 98.0 F 98.0 F 97.7 F Pulse Rate 98 73 70 Respiratory Rate 16 14 16 Blood Pressure 156/77 H 154/82 H 133/58 L Pulse Oximetry 99 97 96 Oxygen Delivery Method Room Air Room Air Room Air 08/19/23 18:59 08/19/23 19:12 Temperature 97.8 F 97.8 F Pulse Rate 76 76 Respiratory Rate 16 16 Blood Pressure 138/70 138/70 Pulse Oximetry 99 99 Oxygen Delivery Method Room Air Room Air BMI result Body Mass Index 29.5 Const Other: Patient is awake and alert. She makes good eye contact. Speaks full clear sentences. There is a 3 cm contusion to the right temporal region at the hairline. There is no fluctuance or crepitus. There is no open wound. General: no acute distress Orientation/consciousness: patient oriented x3 HENMT Other: Pupils are equal round and reactive to light. Extraocular movements are intact. There is no nystagmus. There is no occipital or mastoid tenderness. Neck Other: No spinous, paraspinous or paravertebral tenderness Resp Other: Lungs are clear without any wheezes rales or rhonchi Cardio Other: Irregularly irregular GI Other: Abdomen is soft and nontender. There is no peritoneal signs. No CVAT Back/Spine/Pelvis Other: No spinous, paraspinous or paravertebral tenderness. No ecchymosis to the back noted Neuro Other: No facial droop. No pronator drift. General: patient oriented x3 Cranial nerves: Yes CN's II-XII intact bilaterally Psych Appearance: grossly normal NIH Stroke Scale Time: 16:46 Level of Consciousness: Alert Level of Consciousness Questions: Answers both questions correctly Level of Consciousness Commands: Performs both tasks correctly Best Gaze: Normal Visual: No visual loss Facial Palsy: Normal Motor Arm (Right): No drift Motor Arm (Left): No drift Motor Leg (Right): No drift Motor Leg (Left): No drift Limb Ataxia: Absent Sensory: Normal Best Language: No aphasia Dysarthia: Normal Extinction and Inattention: No abnormality Score: 0 Course Reevaluation(s) Reevaluation #1: Reviewed all labs and imaging with the patient. No acute process. The patient states that she is feeling well. She is tolerated some of the IV fluids. She has been ambulatory in the emergency department without difficulty and was able to use the bathroom. Patient is requesting discharge home. I feel that this is reasonable at this time. She feels comfortable with discharge plan home. Patient has a ride that will be taking her home. No further questions at this time Time: 18:49 Medications Administered Discontinued Medications Generic Name Dose Route Start Last Admin Trade Name Gurinder PRN Reason Stop Dose Admin Sodium Chloride 500 mls @ 500 mls/hr 08/19/23 16:45 08/19/23 17:23 Ns IV 08/19/23 17:44 500 mls/hr .Q1H RAMESH Administration Oxycodone HCl 5 mg 08/19/23 16:38 08/19/23 18:41 Oxycodone Hcl Immed Release 5 Mg Tablet PO 08/19/23 16:39 Not Given ONCE ONE Medical Decision Making Medical Decision Making MDM Narrative: 78-year-old female who has a history of AFib on Xarelto, hypertension diabetes, presents after a fall. Suspect mechanical given the patient's history. There does not appear to be any syncope as she recalls the entire event. Patient denies any lightheadedness or dizziness. She denies any chest pain or other associated symptoms. Check labs for metabolic abnormality, UA for infection, EKG for arrhythmia. She has not hypoglycemic. Potential for medication reaction, hold oxycodone at this time. CT head and neck, further evaluate for intracranial bleeding secondary to Xarelto use. No, prescription monitoring program reviewed, confirming patient's oxycodone use. Differential Diagnosis Differential Diagnoses: The differential diagnosis associated with the presentation includes Arrhythmia Mechanical fall Dehydration UTI Metabolic abnormality Intracranial bleeding Admission/Observation Consideration of admission/observation: Escalation of care including admission/observation considered Lab Data [facility] Lab Attestation statement: I reviewed the patient's lab results. 08/19/23 16:58 Labs: Lab Results 08/19/23 08/19/23 Range/Units 16:58 17:25 Sodium 139 (135-145) mmol/L Potassium 3.7 (3.3-5.1) mmol/L Chloride 104 (96-108) mmol/L Carbon Dioxide 27 (22-29) mmol/L Anion Gap 12 (12-20) BUN 15 (9-16) mg/dL Creatinine 0.82 (0.5-1.4) mg/dL Estim Creat Clear Calc 52.4 Estimated GFR > 60 Random Glucose 93 (60-115) mg/dL Calcium 9.2 D (8.4-10.2) mg/dL Total Bilirubin 0.7 (0.0-1.0) mg/dL AST 22 (5-31) U/L ALT < 5 (0-31) U/L Alkaline Phosphatase 64 (39-117) U/L Troponin I High Sens < 2.7 (<3.5-17.0) ng/L Total Protein 6.9 (6.5-8.0) g/dL Albumin 4.0 (3.5-5.0) g/dL Urine Color Yellow Urine Appearance Clear Urine pH 6.5 (5.0-9.0) Ur Specific [place] 1.010 (1.005-1.025) Urine Protein Negative (Neg-Trace) mg/dL Urine Glucose (UA) Negative (Negative) mg/dL Urine Ketones Negative (Negative) mg/dL Urine Blood Negative (Negative) Urine Nitrite Negative (Negative) Ur Leukocyte Esterase Negative (Negative) Independent Interpretation I performed an independent interpretation of an: EKG Interpretation: AFib at 76 beats per minute without any acute ischemic changes. Radiology Impression Discussion of test interpretation with radiology: I have reviewed the radiologist's reading. Radiologist Impression: [place] [id number] CT Scan Report Signed Patient: Teresa Torres MR#: [id number] : 1945 Acct:[id number] Age/Sex: 78 / F ADM Date: 08/19/23 Loc: HO.ED Attending Dr: Ordering Physician: Matias He Date of Service: 08/19/23 Procedure(s): CT head/brain wo IV con Accession Number(s): [id number] cc: Physician,Unknown ; aMtias He~ EXAMINATION: CT HEAD WITHOUT CONTRAST CLINICAL INFORMATION: Fall. Trauma. COMPARISON: CT head dated 09/26/2022. TECHNIQUE: Contiguous axial imaging was performed from the skull base to vertex without intravenous administration of contrast. This CT examination was performed using dose optimization techniques as appropriate, variously including the following: *Automated exposure control *Adjustment of mA and/or kV according to patient size (this includes techniques or standardized protocols for targeted exams where dose is matched to indication/reason for exam; i.e. extremities or head) *Use of iterative reconstruction technique DLP: 761.64 mGy-cm FINDINGS: There is no acute intracranial hemorrhage. There is no evidence of acute/subacute cerebral or cerebellar infarction. There is mild microvascular ischemic change. There is no midline shift or mass effect. No extra-axial fluid collection. The ventricles are normal in size. The ocular lenses are surgically absent. The orbits are otherwise within normal limits. There is a small right frontal scalp hematoma. The calvarium appears intact. There is mild scattered paranasal sinus mucosal disease. The mastoid air cells are well aerated. CT/CT head/brain wo IV con IMPRESSION: The examination is somewhat limited secondary to motion artifact. The posterior fossa and vertex of the head are most severely affected by motion artifact. Given these limitations, there is no acute intracranial abnormality. There is a small right frontal scalp hematoma. Dictated By: Shaun Yusuf Jr, DO Signed By: <Electronically signed by Shaun Yusuf Jr, DO in OV> 08/19/238 DD/ 1709 TD/TT: [employer] L[employer] Operator: [place] [id number] CT Scan Report Signed Patient: Teresa Torres MR#: [id number] : 1945 Acct:[id number] Age/Sex: 78 / F ADM Date: 08/19/23 Loc: HO.ED Attending Dr: Ordering Physician: Matias He Date of Service: 08/19/23 Procedure(s): CT cervical spine wo IV con Accession Number(s): [id number] cc: Physician,Unknown ; Matias He~ EXAMINATION: CT CERVICAL SPINE WITHOUT CONTRAST CLINICAL INFORMATION: Fall. COMPARISON: CT cervical spine dated 09/26/2022. TECHNIQUE: Noncontrast computed tomography of the cervical spine was performed. This CT examination was performed using dose optimization techniques as appropriate, variously including the following: *Automated exposure control *Adjustment of mA and/or kV according to patient size (this includes techniques or standardized protocols for targeted exams where dose is matched to indication/reason for exam; i.e. extremities or head) *Use of iterative reconstruction technique DLP: 321.61 mGy-cm FINDINGS: The vertebral bodies and posterior elements are anatomically aligned. Vertebral body heights are maintained. There is degenerative disc disease at C5-C6 and C6-C7 characterized by intervertebral disc space narrowing, endplate sclerosis, and marginal osteophytosis. The C1-C2 relationship is anatomic. The dens is intact. There is no acute cervical spine fracture. The prevertebral soft tissue is normal in appearance. Paraspinal soft tissue is normal in appearance. The thyroid gland is normal in appearance. The lung apices are clear. CT/CT cervical spine wo IV con IMPRESSION: No acute osseous cervical spine abnormality. Fleischner guidelines were followed. Dictated By: Shaun Yusuf Jr, DO Signed By: <Electronically signed by Shaun Yusuf Jr, DO in OV> 08/19/23 1833 DD/ 1709 TD/TT: [employer] Operator: [place] [id number] XRay Report Signed Patient: Teresa Torres MR#: [id number] : 1945 Acct:[id number] Age/Sex: 78 / F ADM Date: 08/19/23 Loc: HO.ED Attending Dr: Ordering Physician: Matias He Date of Service: 08/19/23 Procedure(s): XR hip RT w PEL1V Accession Number(s): [id number] cc: Physician,Unknown ; Matias He~ EXAMINATION: XR HIP, RIGHT CLINICAL INFORMATION: Fall, right-sided hip pain. COMPARISON: Radiograph right hip 12/29/2022. TECHNIQUE: Two views of the right hip. FINDINGS: No acute fracture or subluxation. 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 Symmetric SI joints. Pelvic ring and pubic symphysis are maintained. Partially seen lumbosacral spinal fusion hardware. No significant soft tissue abnormality. XR/XR hip RT w PEL1V IMPRESSION: 1. No acute fracture or subluxation. 2. 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 Dictated By: Lyndsay Chamberlain Signed By: <Electronically signed by Lyndsay Chamberlain in OV> 08/19/23 1730 DD/ 1651 TD/TT: [employer] Operator: External Record Review External record reviewed: Outpatient record Chronic Conditions Patient?s care impacted by: Diabetes and Hypertension Discharge Plan Discharge Clinical Impression: Acute pain of right hip Contusion of head Qualifiers: Encounter type: initial encounter Contusion of head detail: scalp Qualified Code(s): S00.03XA - Contusion of scalp, initial encounter Fall Qualifiers: Encounter type: initial encounter Qualified Code(s): W19.XXXA - Unspecified fall, initial encounter Patient Disposition: Home, Self-Care Instructions: Contusion in Adults (ED) Additional Instructions: Rest. Avoid strenuous activity. The bump on your head will gradually go down over time. Watch for any changes, such as severe headache, difficulty walking, problems with her vision or any other concern return immediately to the emergency department. Follow-up with your primary care provider. Call this week to schedule a follow- up appointment. Return to the emergency department if you have any worsening of symptoms, or any concerns. Get well soon! Prescriptions: No Action (DME) blood-glucose meter [FreeStyle Lite Meter] Kit See Rx Instructions miscellaneous .MEDSUPPLY Qty: 1 0RF Rx Instructions: 3 times a day (DME) lancets [FreeStyle Lancets] 28 gauge misc See Rx Instructions .MEDSUPPLY Qty: 100 8RF Rx Instructions: Twice a day (DME) FreeStyle Lite Strips Strip See Rx Instructions .MEDSUPPLY Qty: 100 6RF Rx Instructions: 2 times a day fluticasone propion-salmeterol 500-50 mcg/dose blister with device 1 ea PO BID Qty: 60 6RF levothyroxine 137 mcg tablet 137 mcg PO DAILY@0600 albuterol sulfate [Ventolin HFA] 90 mcg/actuation HFA aerosol inhaler 2 puff INHALATION Q4-6H PRN (Reason: dyspnea) bisoprolol fumarate 5 mg Tablet 5 mg PO DAILY Qty: 30 0RF diltiazem HCl 120 mg capsule,extended release 24hr 120 mg PO DAILY rosuvastatin 5 mg tablet 5 mg PO BEDTIME Januvia 100 mg tablet 100 mg PO QAM tramadol 50 mg tablet 50 mg PO Q12H PRN (Reason: severe pain) lidocaine 5 % adhesive patch,medicated 1 patch topical DAILY PRN (Reason: Pain) Rx Instructions: on for 12 hours, off for 12 hours diltiazem HCl 60 mg capsule,extended release 12 hr 60 mg PO QAM (DME) walker Misc See Rx Instructions .MEDSUPPLY Qty: 1 0RF Rx Instructions: Walker without wheels montelukast 10 mg tablet 10 mg PO BEDTIME (DME) blood sugar diagnostic Strip See Rx Instructions Not Applicable BID Qty: 10 Rx Instructions: As directed cholecalciferol (vitamin D3) 50 mcg (2,000 unit) capsule 50 mcg PO DAILY 90 Days Qty: 90 2RF Trulance 3 mg tablet 3 mg PO DAILY Qty: 30 3RF pantoprazole 40 mg tablet,delayed release (DR/EC) 40 mg PO DAILY Qty: 30 2RF Rx Instructions: take one tablet half an hour before breakfast docusate sodium 100 mg capsule 100 mg PO BEDTIME Qty: 90 3RF Xarelto 20 mg tablet 20 mg PO DAILY@1800 carbidopa-levodopa 25-100 mg tablet 1 tab PO TID alendronate 70 mg tablet 70 mg PO QWEEK oxycodone 5 mg tablet PO DAILY Interventions: ED Discharge Assessment Last Done: 08/19/23 19:12 Discharge Date/Time: 08/19/23 19:14 Print Language: Yi
--- NOTE | 2023-08-19 16:20 | PC.NURSE ---
Pt. on monitoring analyst at this time.
[2023-08-19 16:21] VITALS: BP 154/82; PULSE 73; RESP 14; TEMP 36.7; O2SAT 97
--- NOTE | 2023-08-19 16:33 | ECG_ITS ---
Test Reason : WEAKNESS Blood Pressure : / mmHG Vent. Rate : 076 BPM Atrial Rate : 000 BPM P-R Int : 000 ms QRS Dur : 070 ms QT Int : 396 ms P-R-T Axes : 000 063 048 degrees QTc Int : 445 ms Atrial fibrillation Abnormal ECG When compared with ECG of 22-OCT-2022 04:08, No significant change was found Referred By: Matias He Electronically Signed By:Rajiv Nails
--- NOTE | 2023-08-19 17:08 | PC.NURSE ---
Hold off on giving Oxycodone per ANDRIA De Anda.
[2023-08-19] MEDS: 0.9 % Sodium Chloride 500 ML IV (17:23)
[2023-08-19 17:25] LABS: Alanine Aminotransferase < 5 U/L (0-31); Alkaline Phosphatase 64 U/L (39-117); Anion Gap 12 (12-20); Aspartate Amino Transferase 22 U/L (5-31); Bilirubin Total 0.7 mg/dL (0.0-1.0); Blood Urea Nitrogen 15 mg/dL (9-16); Calcium 9.2 mg/dL (8.4-10.2); Carbon Dioxide 27 mmol/L (22-29); Chloride 104 mmol/L (96-108); Creatinine Clr Calc Pharmacy 52.4; Estimated Glomerular Filt Rate > 60; Glucose Random 93 mg/dL (60-115); Potassium 3.7 mmol/L (3.3-5.1); Sodium 139 mmol/L (135-145); Total Protein 6.9 g/dL (6.5-8.0)
[2023-08-19 17:28] LABS: Troponin-I High Sensitivity < 2.7 ng/L (<3.5-17.0)
[2023-08-19 17:31] LABS: Appearance Urine Clear; Color Urine Yellow; Glucose Urine UA Negative (Negative); Leukocyte Esterase Urine Negative (Negative); Nitrite Urine Negative (Negative); PH 6.5 (5.0-9.0); Urine Blood Negative (Negative); Urine Ketones Negative (Negative); Urine Protein Negative (Neg-Trace)
[2023-08-19 18:35] VITALS: BP 133/58; PULSE 70; RESP 16; TEMP 36.5; O2SAT 96
[2023-08-19 18:59] VITALS: BP 138/70; PULSE 76; RESP 16; TEMP 36.6; O2SAT 99
[2023-08-19 19:12] VITALS: BP 138/70; PULSE 76; RESP 16; TEMP 36.6; O2SAT 99
== END 2023-08-19 19:14 | disposition home or self-care (01) ==
PROVIDERS: Physician Assistant; Emergency Provider Emergency Medicine Emergency Medical Services
DX: M25.551 Pain in right hip (principal); Z91.81 History of falling; E11.9 Type 2 diabetes mellitus without complications; I11.0 Hypertensive heart disease with heart failure; I50.9 Heart failure, unspecified; E78.5 Hyperlipidemia, unspecified; I48.21 Permanent atrial fibrillation; Z79.01 Long term (current) use of anticoagulants; Z79.02 Long term (current) use of antithrombotics/antiplatelets; Z79.899 Other long term (current) drug therapy; Z79.891 Long term (current) use of opiate analgesic; Z87.891 Personal history of nicotine dependence
CPT/HCPCS: 36415; 70450; 72125; 73502; 80053; 81003; 84484; 93005; 99284

== ENCOUNTER → 2023-08-19 16:33 | Outpatient (BNV) | payer OTHER, SELFPAY | PROVIDERS: Emergency Provider Emergency Medicine Emergency Medical Services; Visit Provider Internal Medicine Cardiovascular Disease | DX: R94.31 Abnormal electrocardiogram [ECG] [EKG] (principal) | CPT/HCPCS: 93010 ==

== ENCOUNTER 2023-10-04 05:48 | Emergency (ER) | payer OTHER, SELFPAY ==
--- NOTE | ~2023-10-04 | XR_ITS ---
EXAMINATION: XR FOOT, LEFT CLINICAL INFORMATION: Fall COMPARISON: None available. TECHNIQUE: AP, lateral, and oblique views of the left foot. FINDINGS: There is a minimally displaced fracture at the base of the second metatarsal. Tarsal metatarsal alignment appears grossly intact on the provided radiographs. The Lisfranc ligament. No foreign body. XR/XR foot LT min 3V IMPRESSION: Minimally displaced fracture at the base of the second metatarsal. Tarsometatarsal alignment appears grossly intact on the provided radiographs. Electronically signed by: Graeme Keller MD 10/04/2023 07:37 AM EDT
--- NOTE | ~2023-10-04 | XR_ITS ---
EXAMINATION: XR KNEE, LEFT CLINICAL INFORMATION: Left knee pain COMPARISON: Left knee x-ray on 04/03/2020 TECHNIQUE: Four views of the left knee. FINDINGS: BONES: Bony structures are intact. Small anterior suprapatellar traction spur is present. There is no focal bone destruction or periosteal reaction seen. JOINTS: Alignment of joints is normal. There is marked decrease in medial compartment left knee joint space. SOFT TISSUE: Soft tissue is normal. No radiopaque foreign body or abnormal air collection is seen. XR/XR knee LT 4V IMPRESSION: 1. Unchanged marked medial compartment left tibiofemoral joint osteoarthritis. 2. No fracture or dislocation or signs of osteomyelitis are found. Electronically signed by: Alessia Olivera MD 10/04/2023 06:39 AM EDT
--- NOTE | ~2023-10-04 | XR_ITS ---
EXAMINATION: XR ANKLE, LEFT CLINICAL INFORMATION: Left ankle pain COMPARISON: Left ankle x-ray on 06/30/2021 TECHNIQUE: AP, lateral, and mortise views of the left ankle. FINDINGS: BONES: Bony structures are intact. There is no focal bone destruction or periosteal reaction seen. JOINTS: Alignment of joints is normal. SOFT TISSUE: Soft tissue is normal. No radiopaque foreign body or abnormal air collection is seen. XR/XR ankle LT min 3V IMPRESSION: 1. Interval healing of the distal left fibular shaft fracture and resolution of left shoulder left ankle soft tissue swelling. 2. No fracture or dislocation or signs of osteomyelitis are found. Electronically signed by: Alessia Olivera MD 10/04/2023 06:42 AM EDT
[2023-10-04 06:00] VITALS: BP 145/67; BP 178/82; PULSE 74; PULSE 78; RESP 14; TEMP 36.6; O2SAT 96; BMI 34.0
--- NOTE | 2023-10-04 06:11 | ECG_ITS ---
Test Reason : FALL Blood Pressure : / mmHG Vent. Rate : 063 BPM Atrial Rate : 000 BPM P-R Int : 000 ms QRS Dur : 080 ms QT Int : 402 ms P-R-T Axes : 000 057 057 degrees QTc Int : 411 ms Atrial fibrillation Abnormal ECG When compared with ECG of 19-AUG-2023 16:58, No significant change was found Referred By: Generic ED Physician Electronically Signed By:ARIAN MACIAS
--- OUTSIDE RECORDS SUMMARY | 2023-10-04 06:23 | XMS_ITS ---
Author Organization [facility] Address [address] [facility] [address] Care Team Providers Care Kick Boxer Name Role Phone Carlitos Rodriguez Primary Care Provider Unavaila Robina Keane Unavailable [phone] Arlyn JOHNSON, Kathleen Unavailable Unavailable REASON FOR VISIT no show 11/11 Encounters Encounter Location Date Provider Diagnosis [facility] [address] [place] [address] 11/11/2022 Robina Olmedo PLAN OF TREATMENT No Information
--- OUTSIDE RECORDS SUMMARY | 2023-10-04 06:24 | XMS_ITS ---
Author Organization [facility] Address [address] [place] [address] Care Team Providers Care Devops Developer Name Role Phone Carlitos Rodriguez Primary Care Provider Unavaila Robina Keane Unavailable [phone] Kathleen Stoddard MD Unavailable Unavailable Encounters Encounter Location Date Provider Diagnosis [facility] [address] [place] [address] 11/11/2022 Robina Olmedo PLAN OF TREATMENT No Information
--- OUTSIDE RECORDS SUMMARY | 2023-10-04 06:24 | XMS_ITS | Patient Health Record ---
Author Organization [facility] Address [address] [place] [address] Care Team Providers Care Certified Histologic Technician Name Role Phone Carlitos Rodriguez Primary Care Provider Unavaila ble Black, Robina Unavailable [phone] Kathleen Stoddard MD Unavailable Unavailable ALLERGIES Allergen [...] primary osteoarthritis of the ankle and/or foot (583750549) Problem Primary osteoarthritis, left ankle and foot (M19.072) Active confirmed Localized, primary osteoarthritis of the ankle and/or foot (032472058) Problem Hallux valgus (acquired), right foot (M20.11) Active confirmed Acquired hallu x valgus (38825965) Problem Other hammer toe(s) (acquired), right foot (M20.41) Active confirmed Acquired hamme r toe of right foot (8919490350228701 ) Problem Other hammer toe(s) (acquired), left foot (M20.42) Active confirmed Acquired hamme r toe of left foot (0339918459179360 ) Problem Type 2 diabetes mellitus with diabetic polyneuropathy (E11.42) Active confirmed Polyneuropathy due to type 2 diabetes mellitus (860569241) Problem Type 1 diabetes mellitus with diabetic polyneuropathy (E10.42) Active confirmed Polyneuropathy due to diabetes mellitus type I (396117841) Encounters Encounter Location Date Provider Diagnosis [facility] [address] [address] 11/11/2022 Robina Olmedo [facility] [address] [address] 11/11/2022 Robina Olmedo PLAN OF TREATMENT Pending Test Test Name Order Date Tc99 3 phase Bone Scan 07/28/2020 [id number] SKIN LESIONS, 2 TO 4 03/16/19 26111-LEOT NAIL(S) 03/16/2021 Insurance Providers Payer Name Payer Address Payer Phone Subscriber Number Group Number Insured Name Patient Relationship to Insured Coverage Start Date Coverage End Date [facility] [employer] Claims [address] [place] [id number] Teresa Andrews Self - patient is the insured MEDICAL (GENERAL) HISTORY Medical History History ICD Code Anxiety asthma Back,Hip,and Knee pain Broken bones CAD (Cholesterol) type II diabetes Fibromyalgia Gall bladder problems High blood pressure chronic sinusitis thyroid Surgical History Surgery Date(Month/Year) hysterectomy wisdom teeth extraction colonoscopy endoscopy
--- OUTSIDE RECORDS SUMMARY | 2023-10-04 06:24 | XMS_ITS ---
Author Organization [facility] Address [address] [place] [address] Care Team Providers Care Packing Tractor Machine Operator Name Role Phone Carlitos Rodriguez Primary Care Provider Unavaila Robina Keane Unavailable [phone] Kathleen Stoddard MD Unavailable Unavailable Encounters Encounter Location Date Provider Diagnosis [facility] [address] [place] [address] 06/21/2022 Robina Olmedo PLAN OF TREATMENT No Information
[2023-10-04 06:40] LABS: Basophils Absolute Auto 0.1 X10*3/uL (0.0-0.2); Basophils Percent Auto 0.8 % (0-2); Eosinophils Absolute Auto 0.2 X10*3/uL (0.0-0.4); Eosinophils Percent Auto 1.5 % (0-4); Hematocrit 40.2 % (37.0-47.0); Hemoglobin 13.7 g/dl (12.0-16.0); Imm Gran Abs Auto 0.08 X10*3/uL (0.00-0.03); Imm Gran Pct Auto 0.7 % (0.0-0.4); Lymphocytes Absolute Auto 2.2 X10*3/uL (1.2-4.9); Lymphocytes Percent Auto 19.6 % (20-40); MANUAL DIFF FLAG NO; Mean Corpuscular HGB Conc 34.1 g/dl (31.0-35.0); Mean Corpuscular Hemoglobin 30.2 pg (27.0-33.0); Mean Corpuscular Volume 88.5 fL (80.0-98.0); Mean Platelet Volume 10.5 fL (9.4-12.3); Monocytes Percent Auto 8.6 % (2-11); Neutrophils Absolute Auto 7.9 x10*3/uL (2.0-8.3); Neutrophils Percent Auto 68.8 % (45-73); Platelet Count 224 X10*3/uL (160-400); Red Blood Count 4.54 X10*6/uL (4.20-5.50); Red Cell Distribution Width 14.2 % (11.0-16.0); White Blood Count 11.4 X10*3/uL (4.8-10.8)
[2023-10-04 06:59] LABS: Alanine Aminotransferase 7 U/L (0-31); Alkaline Phosphatase 51 U/L (39-117); Anion Gap 14 (12-20); Aspartate Amino Transferase 15 U/L (5-31); Bilirubin Total 0.6 mg/dL (0.0-1.0); Blood Urea Nitrogen 20 mg/dL (9-16); Calcium 9.7 mg/dL (8.4-10.2); Carbon Dioxide 26 mmol/L (22-29); Chloride 104 mmol/L (96-108); Creatinine Clr Calc Pharmacy 58.7; Estimated Glomerular Filt Rate > 60; Glucose Random 104 mg/dL (60-115); Potassium 4.6 mmol/L (3.3-5.1); Sodium 139 mmol/L (135-145); Total Protein 7.1 g/dL (6.5-8.0)
--- NOTE | 2023-10-04 07:13 | PC.NURSE ---
Report received from previous RN, patient sitting on stretcher, took off collar stating it was bothering her, patient complaining of left ankle pain, ankle swollen and tender to palpation, provided with ice, provider at bedside to assess patient,updated on plan of care at this time
[2023-10-04] MEDS: oxyCODONE HCl Immed Release 5 MG TABLET PO ×2 (07:20→14:32)
--- NOTE | 2023-10-04 07:39 | ED_ITS ---
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 Patient states she got up to use the bathroom, but fell asleep on the toilet, falling onto left leg. Denies head trauma or LOC. states aided off the ground by family, family at bedside found patient on the floor on her buttock after hearing the fall. Has not ambulated since incident. Denies headache, neck/back pain, abdominal pain, CP/SOB. Denies symptoms prior to fall. Reports chronic issues with falling asleep due to medication regimen. Related Data Home Medications ?Medication ?Instructions ?Recorded ?Confirmed blood sugar diagnostic #10 ea 11/23/19 03/16/23 montelukast 10 mg tablet 10 mg PO BEDTIME 11/23/19 03/16/23 rivaroxaban 20 mg tablet (Xarelto) 20 mg PO DAILY@1800 06/17/22 03/16/23 albuterol sulfate 90 mcg/actuation 2 puff inhalation Q4-6H PRN dyspnea 07/24/22 03/16/23 aerosol inhaler (Ventolin HFA) levothyroxine 137 mcg tablet 137 mcg PO DAILY@0600 07/24/22 03/16/23 diltiazem HCl 120 mg 120 mg PO DAILY 09/14/22 03/16/23 capsule,extended release 24 hr rosuvastatin 5 mg tablet 5 mg PO BEDTIME 09/14/22 03/16/23 sitagliptin phosphate 100 mg 100 mg PO QAM 09/14/22 03/16/23 tablet (Januvia) diltiazem HCl 60 mg 60 mg PO QAM 09/26/22 03/16/23 capsule,extended release 12 hr lidocaine 5 % topical patch 1 patch topical DAILY PRN Pain 09/26/22 03/16/23 tramadol 50 mg tablet 50 mg PO Q12H PRN severe pain 09/26/22 02/28/23 carbidopa 25 mg-levodopa 100 mg 1 tab PO TID 12/23/22 03/16/23 tablet alendronate 70 mg tablet 70 mg PO QWEEK 02/28/23 03/16/23 oxycodone 5 mg tablet mg PO DAILY 02/28/23 03/16/23 Previous Rx's ?Medication ?Instructions ?Recorded walker #1 ea 02/29/20 blood-glucose meter (FreeStyle #1 ea 06/19/20 Lite Meter kit) lancets 28 gauge (FreeStyle #100 ea 06/19/20 Lancets) blood sugar diagnostic (FreeStyle #100 ea 11/12/21 Lite Strips) cholecalciferol (vitamin D3) 50 50 mcg PO DAILY 90 days #90 caps 11/27/21 mcg (2,000 unit) capsule bisoprolol fumarate 5 mg tablet 5 mg PO DAILY #30 tabs 07/29/22 fluticasone 500 mcg-salmeterol 50 1 ea PO BID #60 ea 01/17/23 mcg/dose blistr powdr for inhalation pantoprazole 40 mg tablet,delayed 40 mg PO DAILY #30 tabs 04/01/23 release plecanatide 3 mg tablet (Trulance) 3 mg PO DAILY #30 tabs 04/01/23 docusate sodium 100 mg capsule 100 mg PO BEDTIME #90 caps 05/06/23 Allergies Allergy/AdvReac Type Severity Reaction Status Date / Time aspirin [ASPIRIN] Allergy Severe ANAPHYLAXIS Verified 10/04/23 06:09 Seasonal Allergies Allergy Intermediate asthma, Verified 10/04/23 06:09 itch, rash Review of Systems 2 Review of Systems: Constitutional: No Fever, No Chills ENT/Mouth: No Ear Pain, No Nasal Congestion, No Hoarseness, No sore throat, No Rhinorrhea, No Swallowing Difficulty Cardiovascular: No Chest Pain, No SOB Respiratory: No Cough, No Sputum Gastrointestinal: No Nausea, No Vomiting, No Diarrhea, No Constipation, No Abdominal pain Musculoskeletal: + joint pain, No Myalgias, + Joint Swelling Skin: No Skin Lesions, No rash Neuro: No Weakness, No Numbness, No Paresthesias, no headache, no head trauma, no LOC Yes all other systems are reviewed and are negative Constitutional: Constitutional: Reports as per [facility] Past Medical History Attestation statement: The following information was validated with the patient. Source: old records reviewed Medical History Other bursal cyst, right hip Atherosclerotic cardiovascular disease Permanent atrial fibrillation Abnormal nuclear stress test Restless leg syndrome CHF (congestive heart failure) DM2 (diabetes mellitus, type 2) Essential hypertension Autoimmune thyroiditis Overweight (BMI 25.0-29.9) Arthritis Depression with anxiety Diabetes Addiction, opium Moderate persistent asthma Vitamin D deficiency Hypertension Osteopenia Obesity (BMI 30-39.9) Dyslipidemia Hypothyroidism (acquired) Diabetes type 2, uncontrolled Surgical History Hx of cataract surgery Hx of arthroscopy of knee History of radical hysterectomy Family History Family History Father Diabetes Mother No problems noted. Son Substance use disorder Social History Social History Household Members: Unknown / Unable to assess Housing: Unknown / Unable to assess Do you presently have visiting nurse or other home services: Yes Unable to assess alcohol history related to: Unable to respond Alcohol intake: never Comment: 1:1 sitter Patient Tobacco Use Status: Former Tobacco user Smoked in Last 30 Days: No e-Cigarette/Vaping Use: Never Used Second Hand Smoke Exposure: No Use of substances other than those prescribed or required for medical reasons: No Substance Use Type: Unknown Advance Directives: Yes Advance Directives on File: Yes Advance Directives Date on File: 07/30/22 Do you have a plan to hurt others: No Plan service: No Current occupational status: retired Physical Exam 2 Vital Signs: Vital Signs: Last Vital Signs Temp 98.0 F 10/04/23 12:47 Pulse 78 10/04/23 12:47 Resp 16 10/04/23 12:47 BP 136/66 10/04/23 12:47 Pulse Ox 94 10/04/23 10:26 O2 Del Method Room Air 10/04/23 10:26 BMI result Body Mass Index 34.0 Const: General: cooperative, healthy appearing and no acute distress O rientation/consciousness: patient oriented x3 Limitations: no limitations HEENT: Head: Yes normal to inspection and Yes atraumatic Ears: hearing grossly normal bilaterally General nose exam: Normal external nose present Face and sinus: Yes normal facial exam Eyes: General: appearance normal, both eyes and all related structures P upils: Equal, round and reactive pupils present EOM: EOMs intact bilaterally Neck: Neck: Yes normal visual inspection and Yes no meningeal signs Chest: Chest palpation & inspection: normal inspection of the chest, no crepitus and no tenderness Resp: Effort & Inspection: normal respiratory effort and no respiratory distress Auscultation: clear to auscultation bilaterally Cardio: Rate: regular rate Heart sounds: S1 normal heart sound present and S2 normal heart sound present GI: Inspection: Yes normal to inspection Palpation (GI): Soft to palpation, nontender, no guarding and not rigid : General: Yes no CVA tenderness Back/Spine/Pelvis: Other: No midline cervical/thoracic/lumbar spinous tenderness/step-off or deformity Back: no CVA tenderness Skin: Rashes: no rashes Wounds: no wounds Neuro: General: patient oriented x3, tone normal, moves all extremities, no meningeal signs, no focal motor deficits and CN's II-XI intact bilaterally C ranial nerves: Yes CN's II-XII intact bilaterally and Yes Equal, round and reactive pupils present Extrem: Other: Left knee without noted deformity. Left ankle/foot with appreciable swelling greatest to lateral aspect. Tender to palpation. Limited ROM secondary to pain. No erythema/ecchymosis or crepitus. Neurovascular intact distally. Course Course Course Narrative: -Labs reassuring 0746--XR knee LT 4V IMPRESSION: 1. Unchanged marked medial compartment left tibiofemoral joint osteoarthritis. 2. No fracture or dislocation or signs of osteomyelitis are found. XR ankle LT min 3V IMPRESSION: 1. Interval healing of the distal left fibular shaft fracture and resolution of left shoulder left ankle soft tissue swelling. 2. No fracture or dislocation or signs of osteomyelitis are found. XR foot LT min 3V IMPRESSION: Minimally displaced fracture at the base of the second metatarsal. Tarsometatarsal alignment appears grossly intact on the provided radiographs. > patient placed in posterior short-leg splint is to be nonweightbearing to LLE and follow up with Orthopedics -patient on safe discharge due to fall risk with added difficulty of crutches. Will obtain PT/case management consult as patient is unsafe discharge. Physician observation initiated at 08:22AM Physician observation completed at 1800on 10/04/23, patient will go home with VNA for fpc and physical therapy via BLS. Patient does not meet medical necessity for hospitalization. Final disposition discussed with patient and family who verbalized understanding and are in agreement. Medications Administered Generic Name Dose Route Start Last Admin Trade Name Freq PRN Reason Stop Dose Admin Oxycodone HCl 5 mg 10/04/23 12:48 10/04/23 14:32 Oxycodone Hcl Immed Release 5 Mg Tablet PO 5 mg Q6H PRN Administration Pain, Severe (Pain Scale 7-10) Discontinued Medications Generic Name Dose Route Start Last Admin Trade Name Freq PRN Reason Stop Dose Admin Acetaminophen 975 mg 10/04/23 11:32 10/04/23 11:47 Acetaminophen 325 Mg Tablet PO 10/04/23 11:33 975 mg ONCE ONE Administration Oxycodone HCl 5 mg 10/04/23 07:14 10/04/23 07:20 Oxycodone Hcl Immed Release 5 Mg Tablet PO 10/04/23 07:15 5 mg ONCE ONE Administration Procedures Orthopedic Splinting/Casting Injury #1: Side: left Upper Extremity Immobilizer: posterior splint Lower Extremity Injury Location: foot Medical Decision Making Medical Decision Making [facility] Narrative: 78-year-old female with a past medical history of diabetes, hypothyroid, HTN, CHF, restless leg syndrome, AFib on Xarelto, presenting to the ED via EMS complaining of left knee, ankle/foot pain 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 On exam vital signs stable, NAD, nontoxic appearing physical exam as noted above with left ankle/foot swelling and tenderness. No midline spinous tenderness or focal neuro deficits. Concern for fracture vs sprain. Lower suspicion for ACS/PE. Rule out metabolic abnormalities Plan: EKG, labs, x-ray, pain control Please refer to course for remaining clinical decision making, interpretation of labs/imaging results, and discussions with consultants and/or family members. Differential Diagnosis Differential Diagnoses: The differential diagnosis associated with the presentation includes As above Admission/Observation Consideration of admission/observation: Escalation of care including admission/observation considered Lab Data [facility] Lab Attestation statement: I reviewed the patient's lab results. 10/04/23 06:36 10/04/23 06:36 Labs: Lab Results 10/04/23 10/04/23 Range/Units 06:36 08:32 WBC 11.4 H (4.8-10.8) X10*3/uL RBC 4.54 (4.20-5.50) X10*6/uL Hgb 13.7 (12.0-16.0) g/dl Hct 40.2 (37.0-47.0) % MCV 88.5 (80.0-98.0) fL MCH 30.2 (27.0-33.0) pg MCHC 34.1 (31.0-35.0) g/dl RDW 14.2 (11.0-16.0) % Plt Count 224 (160-400) X10*3/uL MPV 10.5 (9.4-12.3) fL Immature Gran % (Auto) 0.7 H (0.0-0.4) % Neut % (Auto) 68.8 (45-73) % Lymph % (Auto) 19.6 L (20-40) % Morgan % (Auto) 8.6 (2-11) % Eos % (Auto) 1.5 (0-4) % Baso % (Auto) 0.8 (0-2) % Lymph # (Auto) 2.2 (1.2-4.9) X10*3/uL Morgan # (Auto) 1.0 (0.1-1.2) X10*3/uL Eos # (Auto) 0.2 (0.0-0.4) X10*3/uL Baso # (Auto) 0.1 (0.0-0.2) X10*3/uL Abs Immat Gran (auto) 0.08 H (0.00-0.03) X10*3/uL Absolute Neuts (auto) 7.9 (2.0-8.3) x10*3/uL Absolute Nucleated RBC 0.000 (0.0-0.012) X10*3/uL Nucleated RBC % (auto) 0.0 (0.0-0.2) /100WBC Sodium 139 (135-145) mmol/L Potassium 4.6 D (3.3-5.1) mmol/L Chloride 104 (96-108) mmol/L Carbon Dioxide 26 (22-29) mmol/L Anion Gap 14 (12-20) BUN 20 H (9-16) mg/dL Creatinine 0.79 (0.5-1.4) mg/dL Estim Creat Clear Calc 58.7 Estimated GFR > 60 Random Glucose 104 (60-115) mg/dL Calcium 9.7 (8.4-10.2) mg/dL Total Bilirubin 0.6 (0.0-1.0) mg/dL AST 15 (5-31) U/L ALT 7 (0-31) U/L Alkaline Phosphatase 51 (39-117) U/L Total Protein 7.1 (6.5-8.0) g/dL Albumin 4.0 (3.5-5.0) g/dL COVID-19 (JOSELYN) Negative (Negative) COVID-19 Clin Com See Note Independent Interpretation I performed an independent interpretation of an: EKG (My interpretation EKG AFib rate of 63. QRS 80. QTC 411. No STEMI) and Plain X-Ray Radiology Impression Discussion of test interpretation with radiology: I have reviewed the radiologist's reading. Independent Historian Clinical information obtained from an independent historian. History obtained from or confirmed by: EMS and Other External Record Review External record reviewed: Inpatient record, Office record, Outpatient record, Prior outpatient labs, Prior outpatient radiology, Primary care record and Outside ED record Tests considered The following testing was considered but not selected: As above Prescription Management I considered prescription management with: Pain Medication Chronic Conditions Patient?s care impacted by: Other Discharge Plan Discharge Clinical Impression: Closed fracture of second metatarsal bone, Frequent falls Patient Disposition: Still a Patient Prescriptions: No Action (DME) blood-glucose meter [FreeStyle Lite Meter] Kit See Rx Instructions miscellaneous .MEDSUPPLY Qty: 1 0RF Rx Instructions: 3 times a day (DME) lancets [FreeStyle Lancets] 28 gauge misc See Rx Instructions .MEDSUPPLY Qty: 100 8RF Rx Instructions: Twice a day (DME) FreeStyle Lite Strips Strip See Rx Instructions .MEDSUPPLY Qty: 100 6RF Rx Instructions: 2 times a day fluticasone propion-salmeterol 500-50 mcg/dose blister with device 1 ea PO BID Qty: 60 6RF levothyroxine 137 mcg tablet 137 mcg PO DAILY@0600 albuterol sulfate [Ventolin HFA] 90 mcg/actuation HFA aerosol inhaler 2 puff INHALATION Q4-6H PRN (Reason: dyspnea) bisoprolol fumarate 5 mg Tablet 5 mg PO DAILY Qty: 30 0RF diltiazem HCl 120 mg capsule,extended release 24hr 120 mg PO DAILY rosuvastatin 5 mg tablet 5 mg PO BEDTIME Januvia 100 mg tablet 100 mg PO QAM tramadol 50 mg tablet 50 mg PO Q12H PRN (Reason: severe pain) lidocaine 5 % adhesive patch,medicated 1 patch topical DAILY PRN (Reason: Pain) Rx Instructions: on for 12 hours, off for 12 hours diltiazem HCl 60 mg capsule,extended release 12 hr 60 mg PO QAM (DME) walker Misc See Rx Instructions .MEDSUPPLY Qty: 1 0RF Rx Instructions: Walker without wheels montelukast 10 mg tablet 10 mg PO BEDTIME (DME) blood sugar diagnostic Strip See Rx Instructions Not Applicable BID Qty: 10 Rx Instructions: As directed cholecalciferol (vitamin D3) 50 mcg (2,000 unit) capsule 50 mcg PO DAILY 90 Days Qty: 90 2RF Trulance 3 mg tablet 3 mg PO DAILY Qty: 30 3RF pantoprazole 40 mg tablet,delayed release (DR/EC) 40 mg PO DAILY Qty: 30 2RF Rx Instructions: take one tablet half an hour before breakfast docusate sodium 100 mg capsule 100 mg PO BEDTIME Qty: 90 3RF Xarelto 20 mg tablet 20 mg PO DAILY@1800 carbidopa-levodopa 25-100 mg tablet 1 tab PO TID alendronate 70 mg tablet 70 mg PO QWEEK oxycodone 5 mg tablet PO DAILY Referrals: Darrel DENIS [Outside] Print Language: Bulgarian
--- NOTE | 2023-10-04 07:43 | PC.NURSE ---
patient stating to this RN that she has to use the restroom, patient also stating that she cannot walk, this RN offered patient a bed robbins, initially patient stated that she cannot use the bedpan, but when asking the patient how she wanted to get to the bathroom if she could not walk patient states i dont know , patient educated that if she cannot stand or walk then using the toilet or the commode would not be appropriate as she would be at risk for falling again, gisel hutson, educated patient that we do not have pampers in the emergency department, patient stated that she would try the bedpan, placed on bedpan by this RN. awaiting results at this time
--- NOTE | 2023-10-04 07:58 | PC.NURSE ---
gisel took herself off of bed robbins, was incontinent of urine in the bed, pericare provided, linens changed, patient changed into hospital gown and soiled clothes placed in belongings bag, patient endorsing some pain relief at this time. bed lowered and locked, callbell placed within reach
[2023-10-04 09:08] LABS: COVID-19 Test Negative (Negative); IDNOW Serial# 152EDE1D
[2023-10-04 09:09] VITALS: BP 130/57; PULSE 76; RESP 16; TEMP 36.7; O2SAT 98
[2023-10-04 10:26] VITALS: BP 132/60; PULSE 88; RESP 18; TEMP 36.5; O2SAT 94
--- NOTE | 2023-10-04 10:56 | PC.NURSE ---
physical therapy at bedside to evaluate patient, patinet ambulating with gait belt and walker and physical therapist at this time
[2023-10-04] MEDS: Acetaminophen 325 MG TABLET 975 MG PO (11:47)
--- NOTE | 2023-10-04 11:50 | PC.NURSE ---
pt brought over from ED bed 16, pt a&ox3, vitals previous stable, pt medicated for 10/10 lle pain- lower extremity is in a splint/alexandra wrap- pt has + csm to the extremity, pt to eval call de leon within reach, will continue to monitor
--- NOTE | 2023-10-04 11:55 | PC.NURSE ---
pharmacy called for med req to be completed
[2023-10-04 12:47] VITALS: BP 136/66; PULSE 78; RESP 16; TEMP 36.7
--- NOTE | 2023-10-04 14:05 | PC.NURSE ---
pt currently eating her lunch, son at bedside, case management came to see patient and offered rehab, son/mother wish to be discharged to home. case management is working on pt discharge to go home.
--- NOTE | 2023-10-04 14:36 | PC.NURSE ---
Pt requested medication for pain in legs, 10/17. Medicated per APR
--- NOTE | 2023-10-04 15:14 | MHC.CM.ED ---
Received case management consult from Bella AYERS. Patient came to the ER due to a fall. Found to have left 2nd metatarsal fx and should be non-weight bearing on that extremity. Physical therapy eval completed. Home vs STR is recommended. Met with patient and son. Patient normally lives alone. Son is visiting from [place] and will be staying with his mother to assist her. PCP verified as Kajal Blackwell. Patient is declining STR and requesting to return home. Patient states she has a nurse check her blood pressure every couple of weeks. T/W spoke with Hilda at [facility]. Patient is not active with any VNA at this time and would authorize [facility]. Referral made to [facility] via [facility]. Elizabeth LEE booked for 6pm. [facility] with chart. Patient, son, Sarah DENNIS and Bella AYERS aware. Continue to monitor for d/c needs.
[2023-10-04 20:37] VITALS: BP 155/79; PULSE 87; RESP 16; TEMP 36.6; O2SAT 97
[2023-10-04 21:04] VITALS: BP 155/79; PULSE 87; RESP 16; TEMP 36.6; O2SAT 97
== END 2023-10-04 21:04 | disposition home or self-care (01) ==
PROVIDERS: Physician Assistant; Emergency Provider Emergency Medicine Emergency Medical Services; PCP Student in an Organized Health Care Education/Training Program
DX: S92.322A Displaced fracture of second metatarsal bone, left foot, initial encounter for closed fracture (principal); R94.31 Abnormal electrocardiogram [ECG] [EKG]; I48.91 Unspecified atrial fibrillation; R26.2 Difficulty in walking, not elsewhere classified; M25.562 Pain in left knee; M25.572 Pain in left ankle and joints of left foot; W01.0XXA Fall on same level from slipping, tripping and stumbling without subsequent striking against object, initial encounter; Y93.89 Activity, other specified; Y92.89 Other specified places as the place of occurrence of the external cause; Y99.8 Other external cause status; Z79.01 Long term (current) use of anticoagulants; Z11.52 Encounter for screening for COVID-19; Z79.899 Other long term (current) drug therapy
CPT/HCPCS: 36415; 73564; 73610; 73630; 80053; 85025; 87635; 93005; 97162; 99285

== ENCOUNTER 2023-10-07 10:22 | Outpatient (REF) | payer OTHER, SELFPAY ==
[2023-10-07 12:36] LABS: Free T4 (Free Thyroxine) 1.01 ng/dL (0.71-1.85); Thyroid Stimulating Hormone 11.23 uIU/mL (0.32-4.0)
== END 2023-10-07 10:23 | disposition home or self-care (01) ==
LOC: HO.HHCL 10:22
PROVIDERS: Visit Provider Student in an Organized Health Care Education/Training Program
DX: E03.9 Hypothyroidism, unspecified (principal)
CPT/HCPCS: 36415; 84439; 84443

== ENCOUNTER 2023-10-18 10:39 | Outpatient (AMB) | payer OTHER, SELFPAY ==
--- NOTE | 2023-10-18 10:48 | A.OFFVIS_ITS ---
Intake Visit Reasons: FC, ED F/U Closed fx 2nd metatarsal doi 10/04/23 Intake Note: Teresa is a 78 year old female who presents today with a splint for a evaluation of her left foot fx, DOI 10/03/20. Patient states she got up to use the bathroom, but fell asleep on the toilet, falling onto left leg. She mentions she is having a lot of pain in her foot. Patient has been walking in her splint. Flying Ii Instructor Services: Flying Ii Instructor Present (Chavo ([id number])) Allergies aspirin [ASPIRIN] Allergy (Severe, Verified 10/18/23 10:56) ANAPHYLAXIS Seasonal Allergies Allergy (Intermediate, Verified 10/18/23 10:56) asthma, itch, rash HPI HPI FC, ED F/U Closed fx 2nd metatarsal doi 10/04/23: Details: 78-year-old female, who is Prydeinig speaking, presents in the office today for an evaluation of left foot pain. The patient presented to the ED on 10/04/23 status post a mechanical fall in the bathroom after falling asleep on the toilet, which lead to her falling on her left lower extremity. X-rays of the left lower extremity were obtained. She was placed in a posterior short-leg splint and was instructed to remain non-weight bearing on the left lower extremity. The patient was to go home with [facility] for care home and physical therapy via [facility].? ? While in the office today, the patient presented wearing a splint. She reports she fell in the bathroom. She claims to have a lot of pain in the left foot. She states she has been ambulating with the splint on. ? ? Patient has a significant medical history of diabetes mellitus and Afib on Xarelto. ?? [facility] Medical History Other bursal cyst, right hip Atherosclerotic cardiovascular disease Permanent atrial fibrillation Abnormal nuclear stress test Restless leg syndrome CHF (congestive heart failure) DM2 (diabetes mellitus, type 2) Essential hypertension Autoimmune thyroiditis Overweight (BMI 25.0-29.9) Arthritis Depression with anxiety Diabetes Addiction, opium Moderate persistent asthma Vitamin D deficiency Hypertension Osteopenia Obesity (BMI 30-39.9) Dyslipidemia Hypothyroidism (acquired) Diabetes type 2, uncontrolled Surgical History Hx of cataract surgery Hx of arthroscopy of knee History of radical hysterectomy Family History Father Diabetes Mother No problems noted. Son Substance use disorder Social History Household Members: Unknown / Unable to assess Housing: Unknown / Unable to assess Do you presently have visiting nurse or other home services: Yes Unable to assess alcohol history related to: Unable to respond Alcohol intake: never Comment: 1:1 sitter Patient Tobacco Use Status: Former Tobacco user e-Cigarette/Vaping Use: Never Used Second Hand Smoke Exposure: No Substance Use Type: Unknown Advance Directives Date on File: 07/30/22 service: No Current occupational status: retired Review of Systems Const All systems reviewed & are unremarkable except as noted in HPI and below Physical Exam Const General: cooperative and no acute distress Orientation/consciousness: patient oriented x3 Resp Effort & Inspection: normal respiratory effort and able to speak in complete sentences Cardio Peripheral pulses: Peripheral pulses 2+ throughout Skin General skin exam: no rashes or lesions noted Neuro General: patient oriented x3 Extrem Other: Left foot: Tenderness to palpation over the base of the second metatarsal at the fracture site. Full ROM with dorsiflexion, plantarflexion, pronation, and supination. Sensation intact. Pedal pulse intact. ? Office Procedures Fracture Care Fracture Billing Code: Fracture Billing Code Assessment & Plan Assessment & Plan (1) Fracture of second metatarsal bone of left foot: Code(s): S92.322A - Displaced fracture of second metatarsal bone, left foot, initial encounter for closed fracture Category: Medical Plan Ms. Chuck Nino is a 78-year-old female, who is Prydeinig speaking, presents in the office today for an evaluation of left foot pain. The patient presented to the ED on 10/04/23 status post a mechanical fall in the bathroom after falling asleep on the toilet, which lead to her falling on her left lower extremity. X- rays of the left lower extremity were obtained. She was placed in a posterior short-leg splint and was instructed to remain non-weight bearing on the left lower extremity. The patient was to go home with [facility] for care home and physical therapy via [facility].? ? While in the office today, the patient presented wearing a splint. She reports she fell in the bathroom. She claims to have a lot of pain in the left foot. She states she has been ambulating with the splint on. ? ? Patient has a significant medical history of diabetes mellitus and Afib on Xarelto. ?? ? The patient will be placed in a short walking boot, off the shelf, while in the office today. She may weight bear as tolerated. I instructed her that I would like her to wear the boot for the next four weeks and then she may begin to wean out of it into a supportive sneaker, using pain as her guide. The patient did inform me she is moving to [place] and will no longer follow-up with our office, therefore, a copy of today?s note was supplied to her, so she is able to get care for her fracture once she is there. Again I strongly recommend for the patient to not be in the walking boot for more the four weeks. Follow-up will be PRN due to the patient moving, or sooner if needed.? ? X-rays of the left foot, obtained on 10/04/23, revealed: Minimally displaced fracture at the base of the second metatarsal. ? Tarsometatarsal alignment appears grossly intact on the provided ? radiographs? ? X-rays of the left ankle, obtained on 10/04/23, revealed: ? 1. Interval healing of the distal left fibular shaft fracture and ? resolution of left ankle soft tissue swelling. ? 2. No fracture or dislocation or signs of osteomyelitis are found.? Patient Instructions: Scribed by Zandra Linton medical technologist chemistry, for Jenae Kumar PA-C on 10/18/2023 at 11:07 am, EST.? Coding Level of Care Code New Pt Level 4 (58778) Diagnoses Fracture of second metatarsal bone of left foot S92.322A CPT Codes Fracture Care - Fracture Billing Code: Fracture Billing Code ([id number])
== END 2023-10-18 11:28 | disposition home or self-care (01) ==
PROVIDERS: PCP Student in an Organized Health Care Education/Training Program; Visit Provider Physician Assistant
DX: S92.322A Displaced fracture of second metatarsal bone, left foot, initial encounter for closed fracture (principal)
CPT/HCPCS: 99213

== ENCOUNTER → 2023-10-18 10:39 | Outpatient (BNVA) | payer OTHER, SELFPAY | PROVIDERS: PCP Student in an Organized Health Care Education/Training Program | DX: S92.322A Displaced fracture of second metatarsal bone, left foot, initial encounter for closed fracture (principal); W18.11XA Fall from or off toilet without subsequent striking against object, initial encounter; Y93.84 Activity, sleeping; Y92.002 Bathroom of unspecified non-institutional (private) residence as the place of occurrence of the external cause; Y99.9 Unspecified external cause status | CPT/HCPCS: 99212 ==

== ENCOUNTER → 2023-10-19 11:00 | Outpatient (BNV) | payer OTHER, SELFPAY | PROVIDERS: PCP Student in an Organized Health Care Education/Training Program; Visit Provider Internal Medicine | DX: Z12.31 Encounter for screening mammogram for malignant neoplasm of breast (principal) | CPT/HCPCS: 77063; 77067 ==

== ENCOUNTER 2023-10-19 11:06 | Outpatient (REF) | payer OTHER, SELFPAY ==
--- NOTE | ~2023-10-19 | MM_ITS ---
EXAMINATION: MM SCREENING DIGITAL BREAST TOMOSYNTHESIS, BILATERAL CLINICAL INFORMATION: Screening. Asymptomatic. COMPARISON: Mammography: Comparison is made with available priors TECHNIQUE: Digital breast mammography with tomosynthesis is performed in both the craniocaudal and mediolateral oblique views along with computer-aided detection (CAD). FINDINGS: The breasts are heterogeneously dense, which may obscure small masses (ACR BI-RADS breast composition Category c). There are no significant masses, abnormal calcifications, or other abnormalities. MM/MM tomosynthesis screening BI IMPRESSION: No mammographic evidence of malignancy. ASSESSMENT: BI-RADS BI-RADS 1 - Negative RECOMMENDATION: Routine annual mammography screening. 1 year F/U This examination should not preclude the clinical evaluation of a suspicious palpable abnormality. This patient's information was entered into a reminder system with a target due date for their next mammogram. Electronically signed by: Alysia Medina DO 11/02/2023 09:40 AM EDT
== END 2023-10-19 11:07 | disposition home or self-care (01) ==
LOC: HO.MAMMO 11:06
PROVIDERS: PCP Student in an Organized Health Care Education/Training Program; Visit Provider Student in an Organized Health Care Education/Training Program
DX: Z12.31 Encounter for screening mammogram for malignant neoplasm of breast (principal)
CPT/HCPCS: 77063; 77067

== ENCOUNTER 2023-11-02 09:14 | Outpatient (REF) | payer OTHER, SELFPAY ==
[2023-11-02 11:56] LABS: Free T4 (Free Thyroxine) 1.06 ng/dL (0.71-1.85); Thyroid Stimulating Hormone 3.85 uIU/mL (0.32-4.0)
== END 2023-11-02 09:15 | disposition home or self-care (01) ==
LOC: HO.HHCL 09:14
PROVIDERS: Visit Provider Student in an Organized Health Care Education/Training Program
DX: E03.9 Hypothyroidism, unspecified (principal)
CPT/HCPCS: 36415; 84439; 84443